=== PATIENT | female | born 1955 | race Caucasian/White ===

== ENCOUNTER → 2017-12-16 08:28 | Outpatient (CLI) | payer OTHER, SELFPAY ==
--- NOTE | 2017-12-16 08:29 | US_ITS ---
STUDY: ABDOMINAL ULTRASOUND - RIGHT UPPER QUADRANT REASON FOR VISIT: Female, 62 years old. Elevated liver enzymes. TECHNIQUE: Ultrasound evaluation of the right upper quadrant was performed with real-time and static miner-scale imaging. TECHNICAL QUALITY: Adequate. COMPARISON: None. FINDINGS: Liver: The liver measures 14.5 cm. There is normal echogenicity of the liver. The bile ducts are within normal limits. There is hepatic color flow. The direction of portal flow is hepatopetal. There is no demonstrated mass lesion. Gallbladder: Normal distended gallbladder. The gallbladder wall is slightly thickened and measures 3.3 mm. There is a negative sonographic Rowland's sign. There is no pericholecystic fluid. There are multiple echogenic structures within the gallbladder, consistent with multiple gallstones. Common Bile Duct (C.B.D.): The common bile duct measures 2.9 mm. Pancreas: Normal size of the head, body of the pancreas. The tail portion is obscured due to overlying bowel gas. There is normal echogenicity of the pancreas. There is no demonstrated pancreatic mass or cyst. Right Kidney: Normal size of the right kidney. The right kidney measures 12.2 cm x 5.0 cm x 4.1 cm. Normal renal cortex. The right cortex measures 1.0 cm. There is no demonstrated renal mass or cyst. There is no right hydronephrosis. US/Liver IMPRESSION: Multiple gallstones. Slightly thickened gallbladder wall. Electronically Signed: Armen Boogie MD at 14:34 EST Tel [phone], Service support ,
== END ==
PROVIDERS: Family Provider Nurse Practitioner; PCP Nurse Practitioner; Visit Provider Nurse Practitioner
DX: K80.80 Other cholelithiasis without obstruction (principal)
CPT/HCPCS: 76705

== ENCOUNTER 2017-12-31 07:00 | Outpatient (RCR) | payer OTHER, SELFPAY ==
--- NOTE | 2017-12-08 15:49 | HP.OTEVAL_ITS ---
Patient's Visit Information GARLAND BURROWS is a 62 year old F, referred to Occupational Therapy by Chayo Ku DO,, with a diagnosis of R MR release. Date of Evaluation: 12/08/17 Occupational Therapist: Marlene Sexton - Subjective Subjective: Pt., boubacar Santoyojoana and noted trigger finger release 2 months. She notes trigger finger has been issue about year and half prior to surgery Hand 1x cortisone injection. She noted she can do things but not as well as she would like. - Pain Right Hand 0 Pain Intensity Range: 0, 3, 4 - Objective Objective/Observation: Scar closed at MF A1 joleen area. Increased scar tissue formation with palpation. She presents with increased edema in R MF compared to L MF. As well as increased stiffness and decreased ROM and strength at this time. - ROM MP: MF R -14-67, L 0-77 PIP: MF R 0-98, L 7-98 DIP: MF 0-68, L 0-61 - Strength Project Manager Process Development: R 39, L 52 Lateral Pinch: R 7, L 11 Tripod Pinch: R 6, L 8 Tip-to-Tip Pinch: R 6, L 4 - Edema Proximal Phalanx: MF R 7.5 cm, L 6.8 cm - Sensation Sensation Comments: WFL; deneis numbness and tingling. - Hand/Wrist Evaluation Total Score of Pain & Functional Sections: 18 - Goals Goal:: Garland to increase R interpreter translator to that of L interpreter translator 2/3 trials 75% if the time to promote increased ability to complete ADL/AIDls and b hand manipulation by d/c. Goal:: Garland to increase R MF MCP ROM to that of equal value of L nonaffected have 2/3 trials 75% of the time by d/c. Goal:: Vatherien to have 0/10 pain consistently in R MF when completing daily fx tasks 4/5 trials 80% of the time by d/c. Goal:: Garland to complete daily scar massage as part of HEP to decrease scar tissue and sensitivity of scar 80% of the time by d/c. Goal:: Garland to return to (I) in all b hand coordiantion and manipulation tasks needed for work and daily activities, including leisure interests i.g. knitting, 4/5 trials 80% of the time by d/c. Goal:: Garland to be (I) to complete HEP 4/5 trials 80% of the time to promote increased strength and tendon glide through A1 joleen to decrease stiffness and promote returning R MF to PLOF by d/c. - Rehabilitation General Assessment: Garland hamlinjoana for evaluation on this date. She has R MF trigger finger release about 2 months ago and has still had some symptoms over the past two months. SHe is unhappy with progress and notes continued edema in R MF as well as locking on occassion. She is to complete OT to promote increasing ROM, strength, and general ability to return to all ADL/IADL sincluding leisure interests at PLOF. Rehabilitation Potential: Good - Anticipated Interventions Anticipated Interventions: A/AAROM/PROM, Strengthening, Edema Control, Scar Care , Massage, Modalities, Joint Protection/Energy Conservation, Dynamic Sitting Balance, Fine Motor Coord/Miguel A, ADL Training, Caregiver Training, Home Program - Visit Plan Frequency: 2x /Week Duration: 4 Weeks General Plan: Pt.Garland, to recieve OT for edema management techniques, decrease scar massage, ROM, strengthening and promoting returnto PLOF. TEXT: Thank you for the opportunity to evaluate your patient. For Medicare and Medicare HMO plans, please review the plan of care and approve it. It will need to be FAXED BACK to us at [phone] for Medicare purposes. Please let me know if there are questions or concerns regarding this plan of care. Physician Signature: Date:
--- NOTE | 2018-03-10 12:10 | HP.OTDCSUM_ITS ---
HP - OT D/C Summary It has been my pleasure to treat GARLAND BURROWS under orders from Chayo Ku DO, for the diagnosis of R MR release for a total of 8 visit(s). She was to follow up at beginning of January and did not return. She will be d/c' d on this date. Please see the following information for a summary of their discharge status. - Objective Objective/Function: Measurements taken uoon last visit: ROM of R MF are as follows: R MCP 0-69, PIP 0-100, DIP 3-67; L MCP 0-67, PIP 0-96, 0-65. ROM similar R vs L. Stiffness present but Pt. is able to straighten actively. 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 She has progressed from time of inital eval with all measurements. 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 Goal:: Garland to increase R MF MCP ROM to that of equal value of L nonaffected have 2/3 trials 75% of the time by d/c. Goal:: Fang to have 0/10 pain consistently in R MF when completing daily fx tasks 4/5 trials 80% of the time by d/c. Goal:: Garland to complete daily scar massage as part of HEP to decrease scar tissue and sensitivity of scar 80% of the time by d/c. Goal:: Garland to return to (I) in all b hand coordiantion and manipulation tasks needed for work and daily activities, including leisure interests i.g. knitting, 4/5 trials 80% of the time by d/c. Goal:: Garland to be (I) to complete HEP 4/5 trials 80% of the time to promote increased strength and tendon glide through A1 joleen to decrease stiffness and promote returning R MF to PLOF by d/c. - Plan Plan: 1x follow up 2x weeks from now. She will be d/c'd if all is well. She is to return to Dr. Ku if stiffness persists. She has progressed nicely but is still worried about stiffness. ROM of R MF vs L MF are similar. 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 SHe is to call with questions/concerns. - D/C Information If there are questions or concerns regarding this patient's occupational therapy , please fell free to call me at [phone]. Thank you for the referral of this patient. Sincerely, Marlene Sexton
== END 2017-12-31 19:00 | disposition home or self-care (01) ==
LOC: OT 07:00
PROVIDERS: Family Provider Nurse Practitioner; PCP Nurse Practitioner; Visit Provider Orthopaedic Surgery
DX: M25.641 Stiffness of right hand, not elsewhere classified (principal)
CPT/HCPCS: 97035; 97110; 97140; 97166; 97530

== ENCOUNTER → 2017-12-31 14:21 | Outpatient (CLI) | payer OTHER, SELFPAY ==
--- NOTE | 2017-12-31 14:23 | HPBI_ITS ---
MAMMOGRAPHY - BILATERAL SCREENING 3-D LUCAS SYNTHESIS REASON FOR EXAM: Female, 62 years old. Bilateral Screening 3-D tomosynthesis PERTINENT HISTORY: Mother with breast cancer.. TECHNIQUE: 2-D mammograms and 3-D Lucas synthesis of the breast (s) were performed. CAD was performed. COMPARISON: 10/29/2016 FINDINGS: The breast composition is heterogeneously dense that can obscure small breast masses. Scattered benign calcifications are seen. No dense spiculated masses or suspicious microcalcifications are identified. No architectural distortion is identified. There is no skin thickening or retraction. There has been no significant change since the prior study. HPBI/SCREENING MAMM (CAD), BILAT IMPRESSION: No mammographic signs of malignancy. Routine yearly mammograms recommended. ASSESSMENT CATEGORY: BIRADS Category 2: Benign. A letter regarding these results will be sent to the patient by the facility within 30 days. FOLLOW UP RECOMMENDATION: Yearly follow up mammogram recommended. (A) Approximately 10% of breast cancers are not detected by mammography. A normal mammogram should not delay biopsy of a clinically suspicious abnormality. Electronically Signed: Teja Aaron MD at 9:34 EDT , Service support ,
== END ==
PROVIDERS: Family Provider Nurse Practitioner; PCP Nurse Practitioner; Visit Provider Nurse Practitioner
DX: Z12.31 Encounter for screening mammogram for malignant neoplasm of breast (principal)
CPT/HCPCS: 77063; 77067

== ENCOUNTER 2018-01-25 10:10 | Day surgery (SDC) | payer OTHER, SELFPAY ==
--- NOTE | 2018-01-20 08:23 | EKG12_ITS ---
Test Reason : PRE OP Blood Pressure : / mmHG Vent. Rate : 064 BPM Atrial Rate : 064 BPM P-R Int : 130 ms QRS Dur : 092 ms QT Int : 396 ms P-R-T Axes : 013 028 024 degrees QTc Int : 408 ms Normal sinus rhythm Normal ECG Confirmed by ASHLEY PARDO, JOSE ([id number]), food editor CAITLIN NIELSON ([id number]) on 01/21/2018 11:35:11 AM Referred By: Chidi Mo Confirmed By:JOSE RAMIREZ MD
[2018-01-20 08:49] LABS: Hematocrit 36.3 % (37-47); Hemoglobin 12.6 g/dl (12.0-15.0); Mean Corp Hgb Conc 34.7 g/gl (32-36); Mean Corpuscular Hgb 30.7 pg (27.0-32.0); Mean Corpuscular Volume 88.3 fL (81-99); Mean Platelet Vol. 11.2 fl (6.2-12.0); Platelet Count 167 K/mm3 (150-450); RBC Distribution Width CV 12.2 % (11.6-14.6); RBC Distribution Width SD 38.1 fl (35.1-43.9); Red Blood Count 4.11 M/mm3 (4.2-5.4); White Blood Count 3.3 K/mm3 (4.4-11.0)
[2018-01-20 08:50] LABS: Scan Indicated on CBC? Y/N NO
[2018-01-25] VITALS (8 sets, daily range): BP systolic 130–191; BP diastolic 7–89; PULSE 57–76; RESP 16–18; TEMP 36.1–36.6; O2SAT 92–100; BMI 29.4
--- NOTE | 2018-01-25 | GALL_PTH ---
PATIENT: GRALAND BUR[place]OWS [place] [facility] [id number] AGE/SX: 62/F ROOM: RE01/25/[address]: Dr. Chidi Mo MD : [id number] BED: DIS: 01/25/2018 SPEC #: [id number] RECD: 01/25/18 15:16 STATUS: ZUNILDA ANGELITO #: [id number] FABRIZIO: 01/25/18 00:[address]: Chidi Mo DEPT: SURGICAL PATHOLOGY RECD BY: James Pozo ENTERED: 01/25/18 15:17 SP TYPE: RENEE GARCIA DR: Mylene Craig, SYSTEMS MECHANIC-C Tissues: Gallbladder, NOS Procedures: Surgery Specimen Level III HEADER OPERATION: Laparoscopic cholecystectomy PRE-OP DIAGNOSIS: Calculus of gallbladder with chronic cholecystitis without obstruction TISSUE SUBMITTED: Gallbladder MICROSCOPIC DIAGNOSIS Gallbladder: Chronic cholecystitis and cholelithiasis. SJ:trevor 4/18/18 MICROSCOPIC DESCRIPTION Slides are reviewed. GROSS DESCRIPTION Received is one container labeled with the patient's name and designated gallbladder. The specimen consists of a gallbladder measuring 9.5 cm in length and up to 4 cm in diameter. The external surface is pink-watson, smooth and glistening for the most part. Focally it is granular, hemorrhagic and contains cautery artifact. The gallbladder contains four variable size greenish-brown stones and stone fragments measuring in aggregate 2.5 x 2.5 x 1.5 cm and 0.5 to 1.5 cm in greatest dimension. The mucosa is bile-stained and without any mass lesions. The gallbladder wall measures up to 0.2 cm in thickness. Pony Roll Finisher sections from the gallbladder and the cystic duct are submitted in one cassette. / SJ:trevor 01/25/18 TC:3 [facility]: [id number]
[2018-01-25] MEDS: Cefazolin 2 GM in 0.9% Normal Saline 100 ML IV (11:25)
--- NOTE | 2018-01-25 11:33 | DCINST_ITS ---
Discharge Diet: Light diet - advance as tolerated Discharge Activity: May Not Drive - for 2-3 days or while taking narcotic pain medications., - - Do not drive, work heavy equipment or sign legal documents for 24 hours. May shower in (days): 1 - with the bandage in place. Additional Activity Instructions:: Pain medication may cause nausea. You should typically eat light foods as you take your pain medications. Pain medication may also cause constipation. If this is a problem for you, please discuss with your doctor. Call your doctor if your incision/area has: Continuous Slow Oozing, Sudden Increased Bleeding, Increased Pain/ Swelling, Increased Redness, Foul Smelling Discharge Call your doctor if you observe: Fever of 101 or Higher Suture Line Care: Avoid Pulling/Pushing, Avoid Pinching/Bending Additional Dressing/Incision Instructions:: Leave operative bandaids on for 2 days. When you remove dressing, leave Steri-Strips on until your follow-up appointment, or until the Steri-Strips fall off on their own. Allergies/Adverse Reactions: Allergies lidocaine Adverse Reaction (Verified 01/19/18 11:28) Itching Medications to take at Discharge coenzyme Q10 200 mg capsule 200 mg PO DAILY 10/15/17 atorvastatin 20 mg tablet 10 mg PO QDAY tab 12/30/17 cholecalciferol (vitamin D3) 10,000 unit capsule 10,000 unit PO QDAY 12/30/17 Calcium Carbonate [Calcium] 600 mg PO BID 01/19/18 Oxycodone HCl/Acetaminophen [Percocet 5/325] 1 - 2 tab PO Q4H PRN PRN 4 Days # 30 tab 01/25/18 The following prescriptions were given: Oxycodone HCl/Acetaminophen [Percocet 5/325] 1 - 2 tab PO Q4H PRN PRN 4 Days # 30 tab PRN Reason: Pain Primary Care Physician: Mylene Craig [Primary Care Provider] - Please Follow Up With: Chidi Mo MD - Please call [phone] to schedule an appointment. When: 7 days after your surgery.
--- NOTE | 2018-01-25 11:35 | OP.PCM_ITS ---
Problem List (1) Calculus of gallbladder with chronic cholecystitis without obstruction Status: Acute Report of Operation Date of Procedure: 01/25/18 Pre-Operative Diagnosis: k 80.10 calculus of the gallbladder with chronic cholecystitis without obstruction Post-Operative Diagnosis: Same Surgery/Procedure Performed:: [id number] laparoscopic cholecystectomy Type of Anesthesia:: General Anesthesiologist: David Berry Description of Procedure: Patient was brought into the operating room and placed in the supine position. Under excellent general anesthetic the abdomen was sterilely prepped and draped in the usual fashion. Local was injected infraumbilically and dissection was carried down to the fascia the fascia was grasped with a Zander varies needle was placed inside the abdomen the abdomen was insufflated to 15 torr a 10/12 trocar was placed without difficulty. Patient was placed in the head up and rotated to the left position. A subxiphoid #5 trocar was placed, inferior to this another #5 trocar was placed, and laterally a #5 trocar was placed. All these under direct visualization without injury to underlying structures. Patient was placed in the head up and rotated to the left position. Fundus of the gallbladder was grasped retracted in cephalad direction. I dissected out the cystic duct. Base hemoclips proximally and distally and ligated the duct. Identified the cystic artery I pulled the close node down and place hemoclips proximally and distally on the artery and ligated the artery. I deliver the gallbladder from the gallbladder bed with use of electrocautery I had no spillage of bile or stones. I placed a specimen and specimen bag delivered through the umbilical port. I irrigated the right upper quadrant good hemostasis was noted. I remove the trochars under direct visualization good hemostasis was noted. I closed the fascia the umbilical port with a figure-of- eight stitch of 0 Vicryl. Skin incisions were closed with subcuticular stitches of 4-0 Monocryl. Steri-Strips are applied sterile dressings were applied the patient tolerated the procedure well. - Admit VTE Documentation VTE Present on Admission: No VTE Mechan Device Prophylaxis: SCD's VTE Pharm Prophylaxis ordered?: No Reason prophylaxis not ordered:: Treatment Not Indicated
[2018-01-25] MEDS: Bupivacaine Mpf 0.5% 30 ML VIAL (12:10)
== END 2018-01-25 14:53 | disposition home or self-care (01) ==
LOC: SDC 10:10 → AC 10:11
PROVIDERS: Family Provider Nurse Practitioner; PCP Nurse Practitioner; Visit Provider Surgery
PROC: (CPT 47610; principal; 2018-01-25 11:10)
DX: K80.10 Calculus of gallbladder with chronic cholecystitis without obstruction (principal); E78.00 Pure hypercholesterolemia, unspecified; Z87.19 Personal history of other diseases of the digestive system; G47.30 Sleep apnea, unspecified; Z87.440 Personal history of urinary (tract) infections; Z87.442 Personal history of urinary calculi; Z86.2 Personal history of diseases of the blood and blood-forming organs and certain disorders involving the immune mechanism; Z78.0 Asymptomatic menopausal state; Z79.899 Other long term (current) drug therapy
CPT/HCPCS: 00790; 47562; 36415; 85027; 88304; 93005; J7120; J2405

== ENCOUNTER → 2018-08-04 12:38 | Outpatient (CLI) | payer OTHER, SELFPAY ==
--- NOTE | 2018-08-04 12:41 | RAD_ITS ---
STUDY: X-RAY CHEST REASON FOR EXAM: Female, 63 years old. CHEST PRESSURE WHEN TAKING IN A BREATH X 1 WEEK TECHNIQUE: Frontal and lateral view of the chest. COMPARISON: None. FINDINGS: The lungs are clear and expanded. There is no demonstrated pleural abnormality. Normal size heart. Normal mediastinum and johnson. Normal visualized pulmonary arteries. Normal visualized aortic arch and descending thoracic aorta. There are diffuse degenerative changes of the visualized thoracic spine. Normal visualized ribs, clavicles, and shoulders. There is no demonstrated abnormality of the visualized soft tissue structures of the upper abdomen. RAD/Chest PA and Lateral IMPRESSION: There are no acute findings in the chest. Electronically Signed: Maico Lehman MD at 20:27 EDT , Service support ,
[2018-08-04 13:14] LABS: D-Dimer Quantitative (DVT/PE) 0.27 FEU/ug/m (0.27-0.49)
== END ==
PROVIDERS: Family Provider Nurse Practitioner; PCP Nurse Practitioner; Referring Provider Nurse Practitioner Gerontology; Visit Provider Nurse Practitioner Gerontology
DX: R07.1 Chest pain on breathing (principal)
CPT/HCPCS: 71046; 85379

== ENCOUNTER 2018-08-06 16:45 | Observation (INO) | payer OTHER, SELFPAY ==
[2018-08-06] VITALS (7 sets, daily range): BP systolic 124–162; BP diastolic 66–90; PULSE 66–78; RESP 16–18; TEMP 36.8–37.1; O2SAT 96–99; BMI 30.1; BMI 29.6
--- NOTE | 2018-08-06 17:04 | EKG12_ITS ---
Test Reason : CP Blood Pressure : / mmHG Vent. Rate : 078 BPM Atrial Rate : 078 BPM P-R Int : 146 ms QRS Dur : 092 ms QT Int : 378 ms P-R-T Axes : 058 044 047 degrees QTc Int : 430 ms Normal sinus rhythm Normal ECG Confirmed by GILA PARDO, LINDSAY ([id number]), society editor CAITLIN NIELSON ([id number]) on 08/09/2018 10:09:18 AM Referred By: Pamela Grimes Confirmed By:LINDSAY URIOSTEGUI MD
--- NOTE | 2018-08-06 17:05 | RAD_ITS ---
STUDY: X-RAY CHEST REASON FOR EXAM: Female, 63 years old. Chest pain hypertension TECHNIQUE: Single AP portable view of the chest. COMPARISON: Study done 2 days ago. FINDINGS: Scoliosis of the thoracic spine. The lungs are clear and expanded. There is no demonstrated pleural abnormality. Normal size heart. Normal mediastinum and johnson. Normal visualized pulmonary arteries. Normal visualized aortic arch and descending thoracic aorta. Normal visualized thoracic spine. Normal visualized ribs, clavicles, and shoulders. There is no demonstrated abnormality of the visualized soft tissue structures of the upper abdomen. RAD/Chest 1 View (Portable) IMPRESSION: Normal x-ray examination of the chest. Electronically Signed: Maico Lehman MD at 17:44 EDT , Service support ,
--- NOTE | 2018-08-06 17:09 | ED.DCSUM_ITS ---
- ER Visit Summary Date of Service: 08/06/18 Chief Complaint: Chest pain History of Present Illness: The patient is a 63 F with a 2-week history of waxing and waning chest pain. It seems to come on with exertion and better with rest. She has had some intermittent shortness of breath as well. She was seen by her PCP this week and had a normal d-dimer. She is scheduled for a CT scan of her chest in the upcoming weeks. Patient does have family history of coronary disease. She did take 1 tab of extra strength Excedrin earlier today which contains 250 mg of aspirin. Physical Examination: Blood pressure is 162/84, other vitals normal. Patient sitting upright in bed no acute distress. Head neck examination is unremarkable. Heart is regular rate and rhythm. Lung sounds clear. Chest wall is nontender. Abdomen is soft nontender. Lower extremity examination reveals no significant calf tenderness or edema. Test Results: EKG is sinus at 78 with no sign of acute ischemia. Portable chest x-ray unremarkable. CBC and chemistry studies are significant for potassium 3.2. Troponin is negative. Emergency Department Course and Treatment: Patient did take aspirin earlier today. Test results were discussed with patient as well as at bedside. She did have a d-dimer earlier this week that was negative. I did express concern that the patient's symptoms certainly do sound cardiac and she has a strong family history of cardiac disease. Symptoms have seemed to progress and worsen over the past 2 weeks. I recommended hospitalization for cycling of enzymes and stress test, which she understands cannot be performed until Wednesday morning. Treatment Plan: [] Disposition: Admit Impression: 1. Chest pain 2. Hypokalemia This note was generated with [employer] dictation software. It may contain incorrect words, spelling, and punctuation that were not noted in review of the chart prior to signing ED Disposition - Plan for ED Patient: Chief Complaint: Chest Pain Referrals: Mylene Criag, GUNNER-C [Primary Care Provider] -
[2018-08-06] MEDS: 0.9% Normal Saline 1,000 ML 150 ML IV (17:17)
[2018-08-06 17:28] LABS: Absolute Lymphocyte Count 1.37 X10^3/ul (0.83-4.51); Absolute Neutrophil Count 5.2 X10^3/uL (2.0-7.7); Basophil# 0.02 X10^3/uL; Basophil% 0.3 % (0-1); Eosinophils% 1.4 % (0-5); Hemoglobin 12.3 g/dl (12.0-15.0); Lymphocyte # 1.37 X10^3/ul (4.0); Lymphocyte % 18.6 % (19-41); Mean Corp Hgb Conc 33.2 g/gl (32-36); Mean Corpuscular Hgb 29.6 pg (27.0-32.0); Mean Corpuscular Volume 88.9 fL (81-99); Mean Platelet Vol. 10.5 fl (6.2-12.0); Monocyte% 9.5 % (0-10); Neutrophil # 5.15 X10^3/uL (2.7-7.7); Neutrophil % 70.1 % (47-70); Platelet Count 192 K/mm3 (150-450); RBC Distribution Width SD 38.4 fl (35.1-43.9); Red Blood Count 4.16 M/mm3 (4.2-5.4); White Blood Count 7.4 K/mm3 (4.4-11.0)
[2018-08-06 17:36] LABS: POSITIVE COUNT NO; POSITIVE DIFFERENTIAL NO; POSITIVE MORPHOLOGY NO
[2018-08-06 17:51] LABS: Anion Gap 5 (5-15); BUN 16 mg/dL (7-18); BUN/Creat Ratio 20.4 RATIO (10-20); Calcium,Total 8.8 mg/dL (8.5-10.1); Chloride 107 mmol/L (98-107); Creatinine, Serum 0.78 mg/dL (0.55-1.02); EST Glomerular Filtration Rate 79 mL/min (>60); Est Glom Filt Rate - Afr Amer 95 mL/min (>60); Estimated Creatinine Clearance 62.92 ml/min; Glucose 101 mg/dL (74-106); Potassium 3.2 mmol/L (3.5-5.1); Sodium Level 143 mmol/L (136-145)
--- NOTE | 2018-08-06 18:19 | PCM.HP.STD ---
Problem List (1) Chest pain Status: Acute History of Present Illness Date of Admission: 08/06/18 Chief Complaint: chest pain The patient is a 63 year old F with a history of hypertension and hyperlipidemia. She was admitted with a complaint of chest pain which has been going on for about 2 weeks. Was retrosternal, pressure-like, radiating to her back and aggravated by exertion. She denied any history of shortness of breath or lightheadedness or dizziness. Chest pain was resolving so she decided to come in. She was recently started on amlodipine by her PCP on account of elevated blood pressure. She has a strong family history of CAD as her brother and father both had CABG and mother and aunt are diabetic and the rest of her family are hypertensive. In the ED, EKG was normal sinus rhythm with no acute ST changes initial troponin was negative. She is being admitted to be managed for chest pain to rule out ACS. [] Past Medical History Past Medical History (Chronic Problems): Chronic Problems (Last Reviewed 02/01/18 @ 08:53 by Venita Cuello) Esophageal reflux (Chronic) Medical History: Medical History (Last Reviewed 02/01/18 @ 08:53 by Venita Cuello) Esophageal reflux (Chronic) K21.9 History of hysterectomy Z90.710 Hyperlipidemia E78.5 History of hysterectomy Z98.890, Z90.710 2004 Allergies lidocaine Adverse Reaction (Verified 08/06/18 16:47) Itching Home Medications: Ambulatory Orders Medication Instructions Recorded coenzyme Q10 200 mg capsule 200 mg PO DAILY 10/15/17 atorvastatin 20 mg tablet 10 mg PO QDAY tab 12/30/17 cholecalciferol (vitamin D3) 10,000 unit PO QDAY 12/30/17 10,000 unit capsule Calcium Carbonate [Calcium] 600 mg PO BID 01/19/18 Alendronate Sodium [Fosamax] 70 mg PO QWEEK 08/06/18 Amlodipine [Norvasc] 2.5 mg PO DAILY 08/06/18 Magnesium 500 mg PO DAILY 08/06/18 Surgical History: Surgical History (Last Reviewed 02/01/18 @ 08:53 by Venita Cuello) History of appendectomy Z90.49 History of tonsillectomy Z90.89 S/P laparoscopic cholecystectomy Z90.49 01/26 Trigger finger, right middle finger M65.331 History of tonsillectomy Z98.890, Z90.89 1960 S/P appendectomy Z90.49 1977 Trigger finger M65.30 right thumb Surgical 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 Lives: Spouse/ Significant Other Smoking Status: Never smoker Alcohol: Occasional Drugs: None - *Family History Paternal Family History: Family History (Last Reviewed 02/01/18 @ 08:53 by Venita Cuello) Father CVA (cerebral vascular accident) Hypertension Heart disease Mother Hypertension Breast cancer High cholesterol Brother Heart disease Sister Diabetes Aunt Diabetes History Items: Heart Disease - brother and father both had CABG, Hypertension Maternal Family History: Family History (Last Reviewed 02/01/18 @ 08:53 by Venita Cuello) Father CVA (cerebral vascular accident) Hypertension Heart disease Mother Hypertension Breast cancer High cholesterol Brother Heart disease Sister Diabetes Aunt Diabetes History Items: Diabetes, Hypertension Review of Systems Constitutional: Denies: Chills, Fever, Weight Change Eyes: Denies: Blurred vision HEENT: Denies: Head Aches, Sinus Congestion, Sinus Drainage Cardiovascular: Reports: Chest Pain, Chest Pressure. Denies: Chest Tightness, Edema, Orthopnea, Palpitations, Paroxysmal Noc. Dyspnea, Syncope Respiratory: Denies: Cough, Shortness of breath at rest, Sputum production Gastrointestinal: Denies: Abdominal Pain, Nausea, Vomiting Genitourinary: Denies: Dysuria Musculoskeletal: Denies: Joint Pain, Joint Tenderness Skin: Denies: Rash, Wounds Neurological: Denies: Numbness, Tingling, Focal weakness Psychiatric: Denies: Anxiety, Depression, Homicidal Ideations, Suicidal Ideations Hematologic/ Lymphatic: Denies: Easy Bruising, Easy Bleeding VTE Information - Inpt Only VTE Present on Admission: No VTE Pharm Prophylaxis ordered?: Yes Patient Problems: Active and Suspected Problems (Last Reviewed 02/01/18 @ 08:53 by Venita Cuello) Chest pain (Acute) - Physical Exam General: Alert, Oriented x3, Cooperative, No apparent distress HEENT: Atraumatic, PERRLA, EOMI, Normocephalic Neck: Supple, No JVD, Negative Carotid Bruits Lungs: Clear to auscultation, Normal air movement, No rhonchi, No wheeze, No rales Cardiovascular: Regular rate, Regular Rhythm, Normal S1, Normal S2, No murmurs Abdomen: Bowel Sounds Present, Soft, Non Tender, Non-Distended, No Hepato-splenomegaly Extremities: No clubbing, No cyanosis, No edema, Capillary Refill Less than 3 Seconds Skin: No rashes, No breakdown Musculoskeletal: No Tenderness to Palpation of Joints or Extremities Lymphatic: No Cervical, Supraclavicular, or Inguinal Adenopathy Neurological: Cranial nerves II-XII grossly intact Psych/Mental Status: Normal Affect, Appropriate, Alert and oriented to time, place, person, mood and affect Vital Signs Temp Pulse Resp BP Pulse Ox 98.3 F 71 18 155/90 H 99 08/06/18 16:45 08/06/18 18:14 08/06/18 18:14 08/06/18 18:14 08/06/18 18:14 Oxygen Flow Rate (L/min) 2 Oxygen Delivery Method Nasal Cannula Weight: 175 lb 11.335 oz Body Mass Index (BMI) 30.1 Laboratory Tests Past 24 Hrs 08/06/18 08/06/18 17:15 17:15 WBC 7.4 RBC 4.16 L Hgb 12.3 Hct 37.0 MCV 88.9 MCH 29.6 MCHC 33.2 RDW 12.0 RDW Differential 38.4 Plt Count 192 MPV 10.5 Immature Gran % (Auto) 0.100 Neut % (Auto) 70.1 H Lymph % (Auto) 18.6 L [place] % (Auto) 9.5 Eos % (Auto) 1.4 Baso % (Auto) 0.3 Absolute Neuts (auto) 5.2 Absolute Lymphs (auto) 1.37 Total Counted Not Reportable Sodium 143 Potassium 3.2 L Chloride 107 Carbon Dioxide 31.0 Anion Gap 5 BUN 16 Creatinine 0.78 Estim Creat Clear Calc 62.92 Est GFR (MDRD) Af Amer 95 Est GFR (MDRD) Non-Af 79 BUN/Creatinine Ratio 20.4 H Glucose 101 Calcium 8.8 Troponin I < 0.015 Diagnostic Data Chest X-Ray 08/06/18 17:05 IMPRESSION: Normal x-ray examination of the chest. Electronically Signed: Maico Lehman MD at 17:44 EDT , Service support , Assessment/Plan All Active Problems (Last Reviewed 02/01/18 @ 08:53 by Venita Cuello) Chest pain (Acute) Calculus of gallbladder with chronic cholecystitis without obstruction (Acute) 63 y/o female presenting with a complaint of chest pain for 2 weeks 1. Exertional chest pain to rule out ACS chest pain retrosternal, worsened by exertion. no history of [place] or CAD admit to PCU with telemetry initial troponin negative; cycle troponins lipid panel; check A1C aspirin 81mg daily, SL nitroglycerin prn stress test on Wednesday 2. Hypertension: on amlodipine. will continue 3. Hyperlipidemia: on statin DVT prophylaxis: heparin Code status: full code. Patient counseled extensively about different types of CODE STATUS including full code, DNR CCA and DNR CCA. Patient elects to be full code. Total [id number] time 16 minutes. Code Visit OBSV E&M: 72063 Initial observation care L2 Procedures: 45778 Advncd Care Plan 30 Min
--- NOTE | 2018-08-06 18:24 | HP.PCM_ITS ---
Problem List (1) Chest pain Status: Acute History of Present Illness Date of Admission: 08/06/18 Chief Complaint: chest pain The patient is a 63 year old F with a history of hypertension and hyperlipidemia. She was admitted with a complaint of chest pain which has been going on for about 2 weeks. Was retrosternal, pressure-like, radiating to her back and aggravated by exertion. She denied any history of shortness of breath or lightheadedness or dizziness. Chest pain was resolving so she decided to come in. She was recently started on amlodipine by her PCP on account of elevated blood pressure. She has a strong family history of CAD as her brother and father both had CABG and mother and aunt are diabetic and the rest of her family are hypertensive. In the ED, EKG was normal sinus rhythm with no acute ST changes initial troponin was negative. She is being admitted to be managed for chest pain to rule out ACS. [] Past Medical History Past Medical History (Chronic Problems): Chronic Problems (Last Reviewed 02/01/18 @ 08:53 by Venita Cuello) Esophageal reflux (Chronic) Medical History: Medical History (Last Reviewed 02/01/18 @ 08:53 by Venita Cuello) Esophageal reflux (Chronic) K21.9 History of hysterectomy Z90.710 Hyperlipidemia E78.5 History of hysterectomy Z98.890, Z90.710 2004 Allergies lidocaine Adverse Reaction (Verified 08/06/18 16:47) Itching Home Medications: Ambulatory Orders Medication Instructions Recorded coenzyme Q10 200 mg capsule 200 mg PO DAILY 10/15/17 atorvastatin 20 mg tablet 10 mg PO QDAY tab 12/30/17 cholecalciferol (vitamin D3) 10,000 unit PO QDAY 12/30/17 10,000 unit capsule Calcium Carbonate [Calcium] 600 mg PO BID 01/19/18 Alendronate Sodium [Fosamax] 70 mg PO QWEEK 08/06/18 Amlodipine [Norvasc] 2.5 mg PO DAILY 08/06/18 Magnesium 500 mg PO DAILY 08/06/18 Surgical History: Surgical History (Last Reviewed 02/01/18 @ 08:53 by Venita Cuello) History of appendectomy Z90.49 History of tonsillectomy Z90.89 S/P laparoscopic cholecystectomy Z90.49 01/26 Trigger finger, right middle finger M65.331 History of tonsillectomy Z98.890, Z90.89 1960 S/P appendectomy Z90.49 1977 Trigger finger M65.30 right thumb Surgical History: appendectomy 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 Lives: Spouse/ Significant Other Smoking Status: Never smoker Alcohol: Occasional Drugs: None - *Family History Paternal Family History: Family History (Last Reviewed 02/01/18 @ 08:53 by Venita Cuello) Father CVA (cerebral vascular accident) Hypertension Heart disease Mother Hypertension Breast cancer High cholesterol Brother Heart disease Sister Diabetes Aunt Diabetes History Items: Heart Disease - brother and father both had CABG, Hypertension Maternal Family History: Family History (Last Reviewed 02/01/18 @ 08:53 by Venita Cuello) Father CVA (cerebral vascular accident) Hypertension Heart disease Mother Hypertension Breast cancer High cholesterol Brother Heart disease Sister Diabetes Aunt Diabetes History Items: Diabetes, Hypertension Review of Systems Constitutional: Denies: Chills, Fever, Weight Change Eyes: Denies: Blurred vision HEENT: Denies: Head Aches, Sinus Congestion, Sinus Drainage Cardiovascular: Reports: Chest Pain, Chest Pressure. Denies: Chest Tightness, Edema, Orthopnea, Palpitations, Paroxysmal Noc. Dyspnea, Syncope Respiratory: Denies: Cough, Shortness of breath at rest, Sputum production Gastrointestinal: Denies: Abdominal Pain, Nausea, Vomiting Genitourinary: Denies: Dysuria Musculoskeletal: Denies: Joint Pain, Joint Tenderness Skin: Denies: Rash, Wounds Neurological: Denies: Numbness, Tingling, Focal weakness Psychiatric: Denies: Anxiety, Depression, Homicidal Ideations, Suicidal Ideations Hematologic/ Lymphatic: Denies: Easy Bruising, Easy Bleeding VTE Information - Inpt Only VTE Present on Admission: No VTE Pharm Prophylaxis ordered?: Yes Patient Problems: Active and Suspected Problems (Last Reviewed 02/01/18 @ 08:53 by Venita Cuello) Chest pain (Acute) - Physical Exam General: Alert, Oriented x3, Cooperative, No apparent distress HEENT: Atraumatic, PERRLA, EOMI, Normocephalic Neck: Supple, No JVD, Negative Carotid Bruits Lungs: Clear to auscultation, Normal air movement, No rhonchi, No wheeze, No rales Cardiovascular: Regular rate, Regular Rhythm, Normal S1, Normal S2, No murmurs Abdomen: Bowel Sounds Present, Soft, Non Tender, Non-Distended, No Hepato- splenomegaly Extremities: No clubbing, No cyanosis, No edema, Capillary Refill Less than 3 Seconds Skin: No rashes, No breakdown Musculoskeletal: No Tenderness to Palpation of Joints or Extremities Lymphatic: No Cervical, Supraclavicular, or Inguinal Adenopathy Neurological: Cranial nerves II-XII grossly intact Psych/Mental Status: Normal Affect, Appropriate, Alert and oriented to time, place, person, mood and affect Vital Signs Temp Pulse Resp BP Pulse Ox 98.3 F 71 18 155/90 H 99 08/06/18 16:45 08/06/18 18:14 08/06/18 18:14 08/06/18 18:14 08/06/18 18:14 Oxygen Flow Rate (L/min) 2 Oxygen Delivery Method Nasal Cannula Weight: 175 lb 11.335 oz Body Mass Index (BMI) 30.1 Laboratory Tests Past 24 Hrs 08/06/18 08/06/18 17:15 17:15 WBC 7.4 RBC 4.16 L Hgb 12.3 Hct 37.0 MCV 88.9 MCH 29.6 MCHC 33.2 RDW 12.0 RDW Differential 38.4 Plt Count 192 MPV 10.5 Immature Gran % (Auto) 0.100 Neut % (Auto) 70.1 H Lymph % (Auto) 18.6 L [place] % (Auto) 9.5 Eos % (Auto) 1.4 Baso % (Auto) 0.3 Absolute Neuts (auto) 5.2 Absolute Lymphs (auto) 1.37 Total Counted Not Reportable Sodium 143 Potassium 3.2 L Chloride 107 Carbon Dioxide 31.0 Anion Gap 5 BUN 16 Creatinine 0.78 Estim Creat Clear Calc 62.92 Est GFR (MDRD) Af Amer 95 Est GFR (MDRD) Non-Af 79 BUN/Creatinine Ratio 20.4 H Glucose 101 Calcium 8.8 Troponin I < 0.015 Diagnostic Data Chest X-Ray 08/06/18 17:05 IMPRESSION: Normal x-ray examination of the chest. Electronically Signed: Maico Lehman MD at 17:44 EDT , Service support , Assessment/Plan All Active Problems (Last Reviewed 02/01/18 @ 08:53 by Venita Cuello) Chest pain (Acute) Calculus of gallbladder with chronic cholecystitis without obstruction (Acute) 63 y/o female presenting with a complaint of chest pain for 2 weeks 1. Exertional chest pain to rule out ACS * chest pain retrosternal, worsened by exertion. * no history of [place] or CAD * admit to PCU with telemetry * initial troponin negative; cycle troponins * lipid panel; check A1C * aspirin 81mg daily, SL nitroglycerin prn * stress test on Wednesday * 2. Hypertension: on amlodipine. will continue 3. Hyperlipidemia: on statin DVT prophylaxis: heparin Code status: * full code. * Patient counseled extensively about different types of CODE STATUS including full code, DNR CCA and DNR CCA. Patient elects to be full code. Total [id number]-rpho time 16 minutes. Code Visit OBSV E&M: 07852 Initial observation care L2 Procedures: 58665 Advncd Care Plan 30 Min
--- NOTE | 2018-08-06 19:30 | EKG12_ITS ---
Test Reason : CP ADMISSION Blood Pressure : / mmHG Vent. Rate : 069 BPM Atrial Rate : 069 BPM P-R Int : 138 ms QRS Dur : 090 ms QT Int : 388 ms P-R-T Axes : 050 035 033 degrees QTc Int : 415 ms Normal sinus rhythm Normal ECG Confirmed by GILA PARDO, LINDSAY ([id number]), associate entertainment editor CAITLIN NIELSON ([id number] on 08/11/2018 4:08:02 PM Referred By: Pamela Grimes Confirmed By:LINDSAY URIOSTEGUI MD
[2018-08-06 20:26] LABS: Hemoglobin A1c 5.6 % (4.2-6.3)
[2018-08-06] MEDS: Atorvastatin Calcium 10 MG Tablet PO (21:33)
[2018-08-06] MEDS: amLODIPine 2.5 MG Tablet PO (21:33)
[2018-08-06] MEDS: Heparin Injection (Vial) 5,000 UNIT/ML VIAL 5000 UNIT SC (21:33)
[2018-08-07] VITALS (13 sets, daily range): BP systolic 119–135; BP diastolic 73–76; PULSE 60–91; RESP 16–18; TEMP 36.4–37.1; O2SAT 95–98
[2018-08-07 06:02] LABS: Absolute Lymphocyte Count 1.46 X10^3/ul (0.83-4.51); Absolute Neutrophil Count 2.9 X10^3/uL (2.0-7.7); Basophil# 0.05 X10^3/uL; Eosinophil# 0.14 X10^3/uL; Eosinophils% 2.8 % (0-5); Hematocrit 36.7 % (37-47); Hemoglobin 12.3 g/dl (12.0-15.0); Lymphocyte # 1.46 X10^3/ul (4.0); Lymphocyte % 29.1 % (19-41); Mean Corp Hgb Conc 33.5 g/gl (32-36); Mean Corpuscular Hgb 30.1 pg (27.0-32.0); Mean Corpuscular Volume 89.7 fL (81-99); Mean Platelet Vol. 10.7 fl (6.2-12.0); Monocyte# 0.46 X10^3/uL; Monocyte% 9.2 % (0-10); Neutrophil % 57.7 % (47-70); Platelet Count 191 K/mm3 (150-450); RBC Distribution Width CV 11.8 % (11.6-14.6); RBC Distribution Width SD 37.9 fl (35.1-43.9); Red Blood Count 4.09 M/mm3 (4.2-5.4)
[2018-08-07 06:11] LABS: POSITIVE COUNT NO; POSITIVE DIFFERENTIAL NO; POSITIVE MORPHOLOGY NO
[2018-08-07 06:23] LABS: Anion Gap 8 (5-15); BUN 18 mg/dL (7-18); BUN/Creat Ratio 23.5 RATIO (10-20); Calcium,Total 8.5 mg/dL (8.5-10.1); Chloride 108 mmol/L (98-107); Creatinine, Serum 0.76 mg/dL (0.55-1.02); EST Glomerular Filtration Rate 81 mL/min (>60); Est Glom Filt Rate - Afr Amer 98 mL/min (>60); Estimated Creatinine Clearance 64.58 ml/min; Glucose 92 mg/dL (74-106); Potassium 3.8 mmol/L (3.5-5.1); Sodium Level 144 mmol/L (136-145)
[2018-08-07] MEDS: Heparin Injection (Vial) 5,000 UNIT/ML VIAL 5000 UNIT SC ×3 (06:24→21:56)
[2018-08-07 06:31] LABS: Cholesterol 154 mg/dL (200); High Density Lipoprotein 49 mg/dL; Triglycerides 115 mg/dL; Very Low Density Lipoprotein 23 mg/dL (5-40)
[2018-08-07] MEDS: amLODIPine 2.5 MG Tablet PO (08:59)
[2018-08-07] MEDS: Calcium (Elemental) 500 MG Tablet PO ×2 (08:59→17:06)
[2018-08-07] MEDS: Aspirin 81 MG TAB.CHEW PO (08:59)
[2018-08-07] MEDS: Magnesium Oxide 400 MG Tablet PO (08:59)
--- NOTE | 2018-08-07 11:40 | PN_ITS ---
<Jacqui Byrne - Last Filed: 08/07/18 11:41> Patient Problems: Active and Suspected Problems (Last Reviewed 02/01/18 @ 08:53 by Venita Cuello) Chest pain (Acute) Subjective: Patient seen and examined. Denies further chest pain overnight. Patient reports a significant family history of heart disease including sibling with history of bypass and also heart disease involving her father. Notes she has been having chest pain with exertion over the past 2 weeks. Aware of plan for stress test in a.m. - Physical Exam General: Alert, Oriented x3, Cooperative, No apparent distress HEENT: Atraumatic, PERRLA, EOMI, Normocephalic Neck: Supple, No JVD, Negative Carotid Bruits Lungs: Clear to auscultation, Normal air movement Cardiovascular: Regular rate, Regular Rhythm, Normal S1, Normal S2, No murmurs Abdomen: Bowel Sounds Present, Soft, Non Tender, Non-Distended Extremities: No clubbing, No cyanosis, No edema, Capillary Refill Less than 3 Seconds Skin: No rashes, No breakdown Musculoskeletal: No Tenderness to Palpation of Joints or Extremities Neurological: Cranial nerves II-XII grossly intact, Neuro grossly intact Psych/Mental Status: Normal Affect, Appropriate Vital Signs Temp Pulse Resp BP Pulse Ox 98.1 F 91 17 126/76 H 98 08/07/18 08:48 08/07/18 08:48 08/07/18 08:48 08/07/18 08:48 08/07/18 08:48 Oxygen Flow Rate (L/min) 2 Oxygen Delivery Method Room Air Weight: 172 lb 9.951 oz Body Mass Index (BMI) 29.6 Intake and Output for Last 24 Hours 08/05/18 08/06/18 08/07/18 23:59 23:59 23:59 Intake Total 480 / 480 360 / 360 Balance 480 / 480 360 / 360 Laboratory Tests Past 24 Hrs 08/06/18 08/06/18 08/06/18 17:15 17:15 17:15 WBC 7.4 RBC 4.16 L Hgb 12.3 Hct 37.0 MCV 88.9 MCH 29.6 MCHC 33.2 RDW 12.0 RDW Differential 38.4 Plt Count 192 MPV 10.5 Immature Gran % (Auto) 0.100 Neut % (Auto) 70.1 H Lymph % (Auto) 18.6 L [place] % (Auto) 9.5 Eos % (Auto) 1.4 Baso % (Auto) 0.3 Absolute Neuts (auto) 5.2 Absolute Lymphs (auto) 1.37 Total Counted Not Reportable Sodium 143 Potassium 3.2 L Chloride 107 Carbon Dioxide 31.0 Anion Gap 5 BUN 16 Creatinine 0.78 Estim Creat Clear Calc 62.92 Est GFR (MDRD) Af Amer 95 Est GFR (MDRD) Non-Af 79 BUN/Creatinine Ratio 20.4 H Glucose 101 Hemoglobin A1c 5.6 Calcium 8.8 Troponin I < 0.015 Triglycerides Cholesterol LDL Cholesterol VLDL Cholesterol HDL Cholesterol 08/06/18 08/06/18 08/07/18 20:06 22:43 05:15 WBC RBC Hgb Hct MCV MCH MCHC RDW RDW Differential Plt Count MPV Immature Gran % (Auto) Neut % (Auto) Lymph % (Auto) [place] % (Auto) Eos % (Auto) Baso % (Auto) Absolute Neuts (auto) Absolute Lymphs (auto) Total Counted Sodium Potassium Chloride Carbon Dioxide Anion Gap BUN Creatinine Estim Creat Clear Calc Est GFR (MDRD) Af Amer Est GFR (MDRD) Non-Af BUN/Creatinine Ratio Glucose Hemoglobin A1c Calcium Troponin I < 0.015 < 0.015 Triglycerides 115 Cholesterol 154 LDL Cholesterol 82 VLDL Cholesterol 23 HDL Cholesterol 49 08/07/18 08/07/18 05:15 05:15 WBC 5.0 RBC 4.09 L Hgb 12.3 Hct 36.7 L MCV 89.7 MCH 30.1 MCHC 33.5 RDW 11.8 RDW Differential 37.9 Plt Count 191 MPV 10.7 Immature Gran % (Auto) 0.200 Neut % (Auto) 57.7 Lymph % (Auto) 29.1 [place] % (Auto) 9.2 Eos % (Auto) 2.8 Baso % (Auto) 1.0 Absolute Neuts (auto) 2.9 Absolute Lymphs (auto) 1.46 Total Counted Not Reportable Sodium 144 Potassium 3.8 Chloride 108 H Carbon Dioxide 28.0 Anion Gap 8 BUN 18 Creatinine 0.76 Estim Creat Clear Calc 64.58 Est GFR (MDRD) Af Amer 98 Est GFR (MDRD) Non-Af 81 BUN/Creatinine Ratio 23.5 H Glucose 92 Hemoglobin A1c Calcium 8.5 Troponin I Triglycerides Cholesterol LDL Cholesterol VLDL Cholesterol HDL Cholesterol Medical Necessity - Tobacco Use Smoking Status: Never smoker Tobacco Use: Non-smoker Assessment/Plan All Active Problems (Last Reviewed 02/01/18 @ 08:53 by Venita Cuello) Chest pain (Acute) Calculus of gallbladder with chronic cholecystitis without obstruction (Acute) 1. Chest pain-patient reports significant family history of heart disease. Troponin negative. EKG without ST-T changes. Plan for stress test in a.m. 2. Hypertension-stable, continue home Norvasc regimen. 3. Hyperlipidemia-continue statin. Fasting lipid panel within normal limits. 4. Osteoporosis-on Fosamax regimen weekly. DVT prophylaxis-heparin subcu. This patient was seen by TOMEKA Marcial under the supervision of Dr. Chawla. <Josh Chawla F - Last Filed: 08/07/18 15:54> - Physical Exam Vital Signs Temp Pulse Resp BP Pulse Ox 98.1 F 70 16 131/76 H 96 08/07/18 14:48 08/07/18 14:48 08/07/18 14:48 08/07/18 14:48 08/07/18 14:48 Oxygen Flow Rate (L/min) 2 Oxygen Delivery Method Room Air Weight: 172 lb 9.951 oz Body Mass Index (BMI) 29.6 Intake and Output for Last 24 Hours 08/05/18 08/06/18 08/07/18 23:59 23:59 23:59 Intake Total 480 / 480 360 / 360 Balance 480 / 480 360 / 360 Laboratory Tests Past 24 Hrs 08/06/18 08/06/18 08/06/18 17:15 17:15 17:15 WBC 7.4 RBC 4.16 L Hgb 12.3 Hct 37.0 MCV 88.9 MCH 29.6 MCHC 33.2 RDW 12.0 RDW Differential 38.4 Plt Count 192 MPV 10.5 Immature Gran % (Auto) 0.100 Neut % (Auto) 70.1 H Lymph % (Auto) 18.6 L [place] % (Auto) 9.5 Eos % (Auto) 1.4 Baso % (Auto) 0.3 Absolute Neuts (auto) 5.2 Absolute Lymphs (auto) 1.37 Total Counted Not Reportable Sodium 143 Potassium 3.2 L Chloride 107 Carbon Dioxide 31.0 Anion Gap 5 BUN 16 Creatinine 0.78 Estim Creat Clear Calc 62.92 Est GFR (MDRD) Af Amer 95 Est GFR (MDRD) Non-Af 79 BUN/Creatinine Ratio 20.4 H Glucose 101 Hemoglobin A1c 5.6 Calcium 8.8 Troponin I < 0.015 Triglycerides Cholesterol LDL Cholesterol VLDL Cholesterol HDL Cholesterol 08/06/18 08/06/18 08/07/18 20:06 22:43 05:15 WBC RBC Hgb Hct MCV MCH MCHC RDW RDW Differential Plt Count MPV Immature Gran % (Auto) Neut % (Auto) Lymph % (Auto) [place] % (Auto) Eos % (Auto) Baso % (Auto) Absolute Neuts (auto) Absolute Lymphs (auto) Total Counted Sodium Potassium Chloride Carbon Dioxide Anion Gap BUN Creatinine Estim Creat Clear Calc Est GFR (MDRD) Af Amer Est GFR (MDRD) Non-Af BUN/Creatinine Ratio Glucose Hemoglobin A1c Calcium Troponin I < 0.015 < 0.015 Triglycerides 115 Cholesterol 154 LDL Cholesterol 82 VLDL Cholesterol 23 HDL Cholesterol 49 08/07/18 08/07/18 05:15 05:15 WBC 5.0 RBC 4.09 L Hgb 12.3 Hct 36.7 L MCV 89.7 MCH 30.1 MCHC 33.5 RDW 11.8 RDW Differential 37.9 Plt Count 191 MPV 10.7 Immature Gran % (Auto) 0.200 Neut % (Auto) 57.7 Lymph % (Auto) 29.1 [place] % (Auto) 9.2 Eos % (Auto) 2.8 Baso % (Auto) 1.0 Absolute Neuts (auto) 2.9 Absolute Lymphs (auto) 1.46 Total Counted Not Reportable Sodium 144 Potassium 3.8 Chloride 108 H Carbon Dioxide 28.0 Anion Gap 8 BUN 18 Creatinine 0.76 Estim Creat Clear Calc 64.58 Est GFR (MDRD) Af Amer 98 Est GFR (MDRD) Non-Af 81 BUN/Creatinine Ratio 23.5 H Glucose 92 Hemoglobin A1c Calcium 8.5 Troponin I Triglycerides Cholesterol LDL Cholesterol VLDL Cholesterol HDL Cholesterol Code Visit Addendum: Dr. Chawla I personally examined the patient and reviewed the chart. I agree with the above. 3-year-old female with a history of hypertension and hyperlipidemia presenting with chest pain this been going on for about 2 weeks. She was also having increased dyspnea on exertion as well as worsening pain on exertion. Has any history of diabetes or tobacco use however there is a family history of coronary artery disease with her brother and father both having had a CABG. On admission and throughout the day today her troponin has been negative. She does not have symptoms at this time. Plan will be for a an exercise nuclear stress test. She had seen her PCP during these last 2 weeks and they had ordered a an outpatient CT scan to evaluate for pulmonary embolism which she has scheduled for next week. OBSV E&M: 54194 Initial observation care L2
[2018-08-07] MEDS: Acetaminophen 325 MG Tablet 650 MG PO ×2 (15:22→21:58)
[2018-08-07] MEDS: Atorvastatin Calcium 10 MG Tablet PO (21:56)
[2018-08-08 03:00] VITALS: PULSE 57
[2018-08-08 03:45] VITALS: BP 123/74; PULSE 68; RESP 18; TEMP 36.7; O2SAT 97
[2018-08-08 05:45] VITALS: BP 124/81; PULSE 67; RESP 16; TEMP 36.8; O2SAT 97
[2018-08-08] MEDS: Aspirin 81 MG TAB.CHEW PO (05:47)
[2018-08-08 05:55] LABS: Absolute Lymphocyte Count 1.56 X10^3/ul (0.83-4.51); Absolute Neutrophil Count 2.4 X10^3/uL (2.0-7.7); Basophil# 0.04 X10^3/uL; Basophil% 0.9 % (0-1); Eosinophil# 0.15 X10^3/uL; Eosinophils% 3.3 % (0-5); Hematocrit 35.5 % (37-47); Hemoglobin 12.2 g/dl (12.0-15.0); Lymphocyte # 1.56 X10^3/ul (4.0); Lymphocyte % 34.1 % (19-41); Mean Corp Hgb Conc 34.4 g/gl (32-36); Mean Corpuscular Hgb 30.8 pg (27.0-32.0); Mean Corpuscular Volume 89.6 fL (81-99); Mean Platelet Vol. 10.4 fl (6.2-12.0); Monocyte% 8.7 % (0-10); Neutrophil # 2.42 X10^3/uL (2.7-7.7); Neutrophil % 52.8 % (47-70); Platelet Count 192 K/mm3 (150-450); RBC Distribution Width CV 11.7 % (11.6-14.6); RBC Distribution Width SD 37.7 fl (35.1-43.9); Red Blood Count 3.96 M/mm3 (4.2-5.4); White Blood Count 4.6 K/mm3 (4.4-11.0)
--- NOTE | 2018-08-08 05:55 | EKG12_ITS ---
Test Reason : AM EKG Blood Pressure : / mmHG Vent. Rate : 065 BPM Atrial Rate : 065 BPM P-R Int : 154 ms QRS Dur : 100 ms QT Int : 400 ms P-R-T Axes : 061 031 033 degrees QTc Int : 416 ms Normal sinus rhythm Normal ECG Confirmed by GILA PARDO, LINDSAY ([id number]), purchasing expeditor CAITLIN NIELSON ([id number] on 08/11/2018 3:59:30 PM Referred By: Pamela Grimes Confirmed By:LINDSAY URIOSTEGUI MD
[2018-08-08 06:06] LABS: Anion Gap 9 (5-15); BUN 17 mg/dL (7-18); BUN/Creat Ratio 22.2 RATIO (10-20); Calcium,Total 8.5 mg/dL (8.5-10.1); Chloride 106 mmol/L (98-107); Creatinine, Serum 0.77 mg/dL (0.55-1.02); EST Glomerular Filtration Rate 81 mL/min (>60); Est Glom Filt Rate - Afr Amer 98 mL/min (>60); Estimated Creatinine Clearance 63.74 ml/min; Glucose 88 mg/dL (74-106); Potassium 3.8 mmol/L (3.5-5.1); Sodium Level 144 mmol/L (136-145)
[2018-08-08 06:13] LABS: Prothrombin Time (Protime)PT. 13.4 SECONDS (11.7-14.9)
[2018-08-08 06:31] LABS: POSITIVE COUNT NO; POSITIVE DIFFERENTIAL NO; POSITIVE MORPHOLOGY NO
[2018-08-08 06:36] VITALS: PULSE 78
[2018-08-08 06:45] LABS: Partial Thromboplast Time 34.7 Seconds (24.1-36.2)
[2018-08-08 08:50] VITALS: BP 118/72; PULSE 77; RESP 18; TEMP 36.6; O2SAT 95
[2018-08-08] MEDS: Magnesium Oxide 400 MG Tablet PO (08:59)
[2018-08-08] MEDS: amLODIPine 2.5 MG Tablet PO (09:00)
[2018-08-08] MEDS: Calcium (Elemental) 500 MG Tablet PO (09:00)
--- NOTE | 2018-08-08 09:17 | STRESSREP_ITS ---
Stress Test Report Date: 08/08/2018 Procedure: Exercise tolerance test/imaging study Indications: Chest pain Consent: Per the patient Procedure: The patient exercised on a Tony protocol for 7 minutes completing Stage II and 1 minute of Stage III achieving a peak heart rate of 150 bpm (96 % predicted maximal heart rate) with a peak blood pressure 154/68 mmHg and a peak MET capacity of 8 METs. The baseline ECG demonstrated normal sinus rhythm. The peak exercise ECG demonstrated no obvious ECG changes. There was a rare PVC during recovery. The functional capacity was considered average. There was no complaint of chest discomfort during exercise or recovery. The examination was discontinued secondary to neck discomfort. Impression: 1. Technically adequate (percent predicted maximal heart rate greater than 85%) exercise tolerance test 2. Peak exercise ECG with no obvious ECG changes 3. There was a rare PVC during recovery 4. Nuclear images pending Myocardial perfusion imaging study: Technique: The patient was injected with 11.9 mCi of technetium 99m Cardiolite and subsequently rest SPECT Cardiolite nuclear imaging was obtained in the horizontal long, vertical long, and short axis views. The patient exercised on a Tony protocol for 7 minutes completing Stage II and 1 minute of Stage III achieving a peak heart rate of 150 bpm (96 % predicted maximal heart rate) with a peak blood pressure 154/68 mmHg and a peak MET capacity of 8 METs. The patient was injected with 34.2 mCi of technetium 99m Cardiolite and subsequently stress SPECT Cardiolite nuclear imaging was obtained in the horizontal long, vertical long, and short axis views. A gated Cardiolite study at peak stress was obtained. Interpretation: Rest and stress SPECT Cardiolite nuclear imaging status post realignment, normalization, and attenuation correction, demonstrates the appearance of relative uniform tracer uptake and myocardial perfusion appearing within normal limits. There is end systolic thickening and brightening. The gated Cardiolite study demonstrates myocardial thickening and inward wall motion. The reported LVEF is 78 %. Impression: 1. Rest and stress SPECT Cardiolite nuclear imaging demonstrate relative uniform tracer uptake and myocardial perfusion appearing within normal limits. 2. The gated Cardiolite study reports an LVEF of 78 %. This note was generated with [employer] software. It may contain incorrect words, spelling, and punctuation that were not noted in checking the note before signing.
--- NOTE | 2018-08-08 09:52 | DCINST_ITS ---
- Discharge Diagnoses Current Active Problems: Current Active and Chronic Problems (Last Reviewed 02/01/18 @ 08:53 by Venita Cuello) Chest pain (Acute) You will use the following diet at home:: No restrictions Discharge Activity: Return to Normal Activity Call your doctor if you observe: Shortness of breath, Dizziness, Fainting spells, Chest pain Allergies/Adverse Reactions: Allergies lidocaine Adverse Reaction (Verified 08/06/18 16:47) Itching Medications to take at Discharge coenzyme Q10 200 mg capsule 200 mg PO DAILY 10/15/17 atorvastatin 20 mg tablet 10 mg PO QDAY tab 12/30/17 cholecalciferol (vitamin D3) 10,000 unit capsule 10,000 unit PO QDAY 12/30/17 Calcium Carbonate [Calcium] 600 mg PO BID 01/19/18 Alendronate Sodium [Fosamax] 70 mg PO QWEEK 08/06/18 Amlodipine [Norvasc] 2.5 mg PO DAILY 08/06/18 Magnesium 500 mg PO DAILY 08/06/18 Primary Care Physician: Mylene Craig NP-C [Primary Care Provider] - Please follow up with your Primary Care Physician in: 1 Week Test Results: Test results from this visit will be discussed in further detail at your follow- up appointment, if applicable. Proposed Discharge Date: 08/08/18
--- NOTE | 2018-08-08 09:57 | PCM.DC.SUM ---
<Jacqui Byrne - Last Filed: 08/08/18 10:05> Discharge Date and Diagnosis Date of Admission: 08/06/18 Date of Discharge: 08/08/18 - Primary Discharge Diagnosis Active and Suspected Problems (Last Reviewed 02/01/18 @ 08:53 by Venita Cuello) 1. Chest pain, ACS ruled out - Secondary Discharge Diagnosis Chronic Problems (Last Reviewed 02/01/18 @ 08:53 by Venita Cuello) Hypertension Hyperlipidemia Osteoporosis Hospital Course and Treatment Imaging Results: Diagnostic Data Chest X-Ray 08/06/18 17:05 IMPRESSION: Normal x-ray examination of the chest. Electronically Signed: Maico Lehman MD at 17:44 EDT , Service support , Operations: None Procedures: Stress test Summary of Care Provided: The patient is a 63 year old F admitted 08/06/2018 due to chest pain. 1. Chest pain-patient reports significant family history of heart disease. Troponin negative. EKG without ST-T changes. Stress test without evidence of ischemia. ACS ruled out. Recommend trial of PPI if patient continues to have intermittent chest discomfort to see if this improves her symptoms. 2. Hypertension-stable, continue home Norvasc regimen. 3. Hyperlipidemia-continue statin. Fasting lipid panel within normal limits. 4. Osteoporosis-on Fosamax regimen weekly. General: Alert, Oriented x3, Cooperative, No apparent distress HEENT: Atraumatic, PERRLA, EOMI, Normocephalic Neck: Supple, No JVD, Negative Carotid Bruits Lungs: Clear to auscultation, Normal air movement Cardiovascular: Regular rate, Regular Rhythm, Normal S1, Normal S2, No murmurs Abdomen: Bowel Sounds Present, Soft, Non Tender, Non-Distended Extremities: No clubbing, No cyanosis, No edema, Capillary Refill Less than 3 Seconds Skin: No rashes, No breakdown Musculoskeletal: No Tenderness to Palpation of Joints or Extremities Neurological: Cranial nerves II-XII grossly intact, Neuro grossly intact Psych/Mental Status: Normal Affect, Appropriate Patient seen exam prior to discharge. Physical assessment as noted above. Patient stable for discharge home with follow-up with primary care physician in 1 week. This patient was seen by TOMEKA Marcial under the supervision of Dr. Byers. - Physical Exam Vital Signs Temp Pulse Resp BP Pulse Ox 97.8 F 77 18 118/72 95 08/08/18 08:50 08/08/18 08:50 08/08/18 08:50 08/08/18 08:50 08/08/18 08:50 Oxygen Flow Rate (L/min) 2 Oxygen Delivery Method Room Air Weight: 172 lb 9.951 oz Body Mass Index (BMI) 29.6 Intake and Output for Last 24 Hours 08/06/18 08/07/18 08/08/18 23:59 23:59 23:59 Intake Total 480 / 480 1080 / 1080 Balance 480 / 480 1080 / 1080 Laboratory Tests Past 24 Hrs 08/08/18 08/08/18 08/08/18 05:10 05:10 05:10 WBC 4.6 RBC 3.96 L Hgb 12.2 Hct 35.5 L MCV 89.6 MCH 30.8 MCHC 34.4 RDW 11.7 RDW Differential 37.7 Plt Count 192 MPV 10.4 Immature Gran % (Auto) 0.200 Neut % (Auto) 52.8 Lymph % (Auto) 34.1 [place] % (Auto) 8.7 Eos % (Auto) 3.3 Baso % (Auto) 0.9 Absolute Neuts (auto) 2.4 Absolute Lymphs (auto) 1.56 Total Counted Not Reportable PT 13.4 INR 1.0 APTT 34.7 Sodium 144 Potassium 3.8 Chloride 106 Carbon Dioxide 29.0 Anion Gap 9 BUN 17 Creatinine 0.77 Estim Creat Clear Calc 63.74 Est GFR (MDRD) Af Amer 98 Est GFR (MDRD) Non-Af 81 BUN/Creatinine Ratio 22.2 H Glucose 88 Calcium 8.5 Discharge Diet: No Restrictions Discharge Activity: Return to Normal Activity Call your doctor if you observe: Shortness of breath, Dizziness, Fainting spells, Chest pain Home Medications: Medications to take at Discharge coenzyme Q10 200 mg capsule 200 mg PO DAILY 10/15/17 atorvastatin 20 mg tablet 10 mg PO QDAY tab 12/30/17 cholecalciferol (vitamin D3) 10,000 unit capsule 10,000 unit PO QDAY 12/30/17 Calcium Carbonate [Calcium] 600 mg PO BID 01/19/18 Alendronate Sodium [Fosamax] 70 mg PO QWEEK 08/06/18 Amlodipine [Norvasc] 2.5 mg PO DAILY 08/06/18 Magnesium 500 mg PO DAILY 08/06/18 Primary Care Physician: Mylene Craig NP-C [Primary Care Provider] - Please follow up with your Primary Care Physician in: 1 Week Disposition: Home Minutes spent on discharge:: 35 Patient Condition:: Stable Medical Necessity - Tobacco Use Smoking Status: Never smoker Tobacco Use: Non-smoker Meaningful Use Info Meaningful Use Diagnoses (Choose all that apply): None applicable <Mark Byers E - Last Filed: 08/08/18 11:07> Discharge Date and Diagnosis - Secondary Discharge Diagnosis Chronic Problems (Last Reviewed 02/01/18 @ 08:53 by Venita Cuello) Esophageal reflux (Chronic) Hospital Course and Treatment Imaging Results: 08/08/18 08:00 Nuclear Stress Test - Treadmil [NM] Routine Summary of Care Provided: Hospitalist note: Discharge summary above reviewed and I agree with the above discharge plan. Patient was admitted for intermittent chest pain that has been going on for couple of weeks. It was atypical for ACS. Her initial and repeat EKG was unremarkable without evidence of acute ischemic changes. Troponin was negative x3. Chest x-ray showed no acute findings. She underwent nuclear stress test that reported as negative without evidence of stress-induced myocardial ischemia. Acute coronary syndrome ruled out. Her routine blood work was unremarkable. Her vital signs were stable throughout admission. Lipid profile revealed normal cholesterol, LDL and HDL cholesterol at target. Her symptoms could be due to musculoskeletal pain. Patient discharged home in a stable medical condition, recommended to use [id number] Tylenol or Aleve for pain control as needed, recommended follow-up with PCP in 1 week. - Physical Exam General: Alert, Oriented x3, Cooperative, No apparent distress. HEENT: Atraumatic, PERRLA, EOMI. Neck: Supple, No JVD, Negative Carotid Bruits, Trachea Midline, Thyroid Normal. Lungs: Clear to auscultation, Normal air movement, No rhonchi, No wheeze, No rales. Cardiovascular: Regular rate, Regular Rhythm, Normal S1, Normal S2, PMI Normal. Abdomen: Bowel Sounds Present, Soft, Non Tender, Non-Distended, No Hepato-splenomegaly. Extremities: No clubbing, No cyanosis, No edema Skin: No rashes, No breakdown Neurological: Neuro grossly intact Vital Signs are stable. This note was generated with [employer] dictation software. It may contain incorrect words, spelling, and punctuation that were not noted in checking the note before signing. - Physical Exam Vital Signs Temp Pulse Resp BP Pulse Ox 97.8 F 77 18 118/72 95 08/08/18 08:50 08/08/18 08:50 08/08/18 08:50 08/08/18 08:50 08/08/18 08:50 Oxygen Flow Rate (L/min) 2 Oxygen Delivery Method Room Air Weight: 172 lb 9.951 oz Body Mass Index (BMI) 29.6 Intake and Output for Last 24 Hours 08/06/18 08/07/18 08/08/18 23:59 23:59 23:59 Intake Total 480 / 480 1080 / 1080 Balance 480 / 480 1080 / 1080 Laboratory Tests Past 24 Hrs 08/08/18 08/08/18 08/08/18 05:10 05:10 05:10 WBC 4.6 RBC 3.96 L Hgb 12.2 Hct 35.5 L MCV 89.6 MCH 30.8 MCHC 34.4 RDW 11.7 RDW Differential 37.7 Plt Count 192 MPV 10.4 Immature Gran % (Auto) 0.200 Neut % (Auto) 52.8 Lymph % (Auto) 34.1 [place] % (Auto) 8.7 Eos % (Auto) 3.3 Baso % (Auto) 0.9 Absolute Neuts (auto) 2.4 Absolute Lymphs (auto) 1.56 Total Counted Not Reportable PT 13.4 INR 1.0 APTT 34.7 Sodium 144 Potassium 3.8 Chloride 106 Carbon Dioxide 29.0 Anion Gap 9 BUN 17 Creatinine 0.77 Estim Creat Clear Calc 63.74 Est GFR (MDRD) Af Amer 98 Est GFR (MDRD) Non-Af 81 BUN/Creatinine Ratio 22.2 H Glucose 88 Calcium 8.5 Code Visit OBSV E&M: 34762 Observation care discharge
--- NOTE | 2018-08-08 10:05 | DS.PCM_ITS ---
<Jacqui Byrne - Last Filed: 08/08/18 10:05> Discharge Date and Diagnosis Date of Admission: 08/06/18 Date of Discharge: 08/08/18 - Primary Discharge Diagnosis Active and Suspected Problems (Last Reviewed 02/01/18 @ 08:53 by Venita Cuello) 1. Chest pain, ACS ruled out - Secondary Discharge Diagnosis Chronic Problems (Last Reviewed 02/01/18 @ 08:53 by Venita Cuello) Hypertension Hyperlipidemia Osteoporosis Hospital Course and Treatment Imaging Results: Diagnostic Data Chest X-Ray 08/06/18 17:05 IMPRESSION: Normal x-ray examination of the chest. Electronically Signed: Maico Lehman MD at 17:44 EDT , Service support , Operations: None Procedures: Stress test Summary of Care Provided: The patient is a 63 year old F admitted 08/06/2018 due to chest pain. 1. Chest pain-patient reports significant family history of heart disease. Troponin negative. EKG without ST-T changes. Stress test without evidence of ischemia. ACS ruled out. Recommend trial of PPI if patient continues to have intermittent chest discomfort to see if this improves her symptoms. 2. Hypertension-stable, continue home Norvasc regimen. 3. Hyperlipidemia-continue statin. Fasting lipid panel within normal limits. 4. Osteoporosis-on Fosamax regimen weekly. General: Alert, Oriented x3, Cooperative, No apparent distress HEENT: Atraumatic, PERRLA, EOMI, Normocephalic Neck: Supple, No JVD, Negative Carotid Bruits Lungs: Clear to auscultation, Normal air movement Cardiovascular: Regular rate, Regular Rhythm, Normal S1, Normal S2, No murmurs Abdomen: Bowel Sounds Present, Soft, Non Tender, Non-Distended Extremities: No clubbing, No cyanosis, No edema, Capillary Refill Less than 3 Seconds Skin: No rashes, No breakdown Musculoskeletal: No Tenderness to Palpation of Joints or Extremities Neurological: Cranial nerves II-XII grossly intact, Neuro grossly intact Psych/Mental Status: Normal Affect, Appropriate Patient seen exam prior to discharge. Physical assessment as noted above. Alyssa ent stable for discharge home with follow-up with primary care physician in 1 week. This patient was seen by TOMEKA Marcial under the supervision of Dr. Byers. - Physical Exam Vital Signs Temp Pulse Resp BP Pulse Ox 97.8 F 77 18 118/72 95 08/08/18 08:50 08/08/18 08:50 08/08/18 08:50 08/08/18 08:50 08/08/18 08:50 Oxygen Flow Rate (L/min) 2 Oxygen Delivery Method Room Air Weight: 172 lb 9.951 oz Body Mass Index (BMI) 29.6 Intake and Output for Last 24 Hours 08/06/18 08/07/18 08/08/18 23:59 23:59 23:59 Intake Total 480 / 480 1080 / 1080 Balance 480 / 480 1080 / 1080 Laboratory Tests Past 24 Hrs 08/08/18 08/08/18 08/08/18 05:10 05:10 05:10 WBC 4.6 RBC 3.96 L Hgb 12.2 Hct 35.5 L MCV 89.6 MCH 30.8 MCHC 34.4 RDW 11.7 RDW Differential 37.7 Plt Count 192 MPV 10.4 Immature Gran % (Auto) 0.200 Neut % (Auto) 52.8 Lymph % (Auto) 34.1 [place] % (Auto) 8.7 Eos % (Auto) 3.3 Baso % (Auto) 0.9 Absolute Neuts (auto) 2.4 Absolute Lymphs (auto) 1.56 Total Counted Not Reportable PT 13.4 INR 1.0 APTT 34.7 Sodium 144 Potassium 3.8 Chloride 106 Carbon Dioxide 29.0 Anion Gap 9 BUN 17 Creatinine 0.77 Estim Creat Clear Calc 63.74 Est GFR (MDRD) Af Amer 98 Est GFR (MDRD) Non-Af 81 BUN/Creatinine Ratio 22.2 H Glucose 88 Calcium 8.5 Discharge Diet: No Restrictions Discharge Activity: Return to Normal Activity Call your doctor if you observe: Shortness of breath, Dizziness, Fainting spell s, Chest pain Home Medications: Medications to take at Discharge coenzyme Q10 200 mg capsule 200 mg PO DAILY 10/15/17 atorvastatin 20 mg tablet 10 mg PO QDAY tab 12/30/17 cholecalciferol (vitamin D3) 10,000 unit capsule 10,000 unit PO QDAY 12/30/17 Calcium Carbonate [Calcium] 600 mg PO BID 01/19/18 Alendronate Sodium [Fosamax] 70 mg PO QWEEK 08/06/18 Amlodipine [Norvasc] 2.5 mg PO DAILY 08/06/18 Magnesium 500 mg PO DAILY 08/06/18 Primary Care Physician: Mylene Craig NP-C [Primary Care Provider] - Please follow up with your Primary Care Physician in: 1 Week Disposition: Home Minutes spent on discharge:: 35 Patient Condition:: Stable Medical Necessity - Tobacco Use Smoking Status: Never smoker Tobacco Use: Non-smoker Meaningful Use Info Meaningful Use Diagnoses (Choose all that apply): None applicable <Mark Byers E - Last Filed: 08/08/18 11:07> Discharge Date and Diagnosis - Secondary Discharge Diagnosis Chronic Problems (Last Reviewed 02/01/18 @ 08:53 by Venita Cuello) Esophageal reflux (Chronic) Hospital Course and Treatment Imaging Results: 08/08/18 08:00 Nuclear Stress Test - Treadmil [NM] Routine Summary of Care Provided: Hospitalist note: Discharge summary above reviewed and I agree with the above discharge plan. Patient was admitted for intermittent chest pain that has been going on for couple of weeks. It was atypical for ACS. Her initial and repeat EKG was unremarkable without evidence of acute ischemic changes. Troponin was negative x3. Chest x-ray showed no acute findings. She underwent nuclear stress test that reported as negative without evidence of stress-induced myocardial ischemia. Acute coronary syndrome ruled out. Her routine blood work was unremarkable. Her vital signs were stable throughout admission. Lipid profile revealed normal cholesterol, LDL and HDL cholesterol at target. Her symptoms could be due to musculoskeletal pain. Patient discharged home in a stable medical condition, recommended to use [id number] Tylenol or Aleve for pain control as needed, recommended follow-up with PCP in 1 week. - Physical Exam General: Alert, Oriented x3, Cooperative, No apparent distress. HEENT: Atraumatic, PERRLA, EOMI. Neck: Supple, No JVD, Negative Carotid Bruits, Trachea Midline, Thyroid Normal. Lungs: Clear to auscultation, Normal air movement, No rhonchi, No wheeze, No rales. Cardiovascular: Regular rate, Regular Rhythm, Normal S1, Normal S2, PMI Normal. Abdomen: Bowel Sounds Present, Soft, Non Tender, Non-Distended, No Hepato- splenomegaly. Extremities: No clubbing, No cyanosis, No edema Skin: No rashes, No breakdown Neurological: Neuro grossly intact Vital Signs are stable. This note was generated with [employer] dictation software. It may contain incorrect words, spelling, and punctuation that were not noted in checking the note before signing. - Physical Exam Vital Signs Temp Pulse Resp BP Pulse Ox 97.8 F 77 18 118/72 95 08/08/18 08:50 08/08/18 08:50 08/08/18 08:50 08/08/18 08:50 08/08/18 08:50 Oxygen Flow Rate (L/min) 2 Oxygen Delivery Method Room Air Weight: 172 lb 9.951 oz Body Mass Index (BMI) 29.6 Intake and Output for Last 24 Hours 08/06/18 08/07/18 08/08/18 23:59 23:59 23:59 Intake Total 480 / 480 1080 / 1080 Balance 480 / 480 1080 / 1080 Laboratory Tests Past 24 Hrs 08/08/18 08/08/18 08/08/18 05:10 05:10 05:10 WBC 4.6 RBC 3.96 L Hgb 12.2 Hct 35.5 L MCV 89.6 MCH 30.8 MCHC 34.4 RDW 11.7 RDW Differential 37.7 Plt Count 192 MPV 10.4 Immature Gran % (Auto) 0.200 Neut % (Auto) 52.8 Lymph % (Auto) 34.1 [place] % (Auto) 8.7 Eos % (Auto) 3.3 Baso % (Auto) 0.9 Absolute Neuts (auto) 2.4 Absolute Lymphs (auto) 1.56 Total Counted Not Reportable PT 13.4 INR 1.0 APTT 34.7 Sodium 144 Potassium 3.8 Chloride 106 Carbon Dioxide 29.0 Anion Gap 9 BUN 17 Creatinine 0.77 Estim Creat Clear Calc 63.74 Est GFR (MDRD) Af Amer 98 Est GFR (MDRD) Non-Af 81 BUN/Creatinine Ratio 22.2 H Glucose 88 Calcium 8.5 Code Visit OBSV E&M: [id number] Observation care discharge
== END 2018-08-08 09:51 | disposition home or self-care (01) ==
LOC: ED 17:35 → PCU 18:21
PROVIDERS: Admitting Provider Student in an Organized Health Care Education/Training Program; Emergency Provider Emergency Medicine; Family Provider Nurse Practitioner; PCP Nurse Practitioner; Referring Provider Student in an Organized Health Care Education/Training Program; Visit Provider Hospitalist
DX: R07.89 Other chest pain (principal); R06.02 Shortness of breath; Z82.49 Family history of ischemic heart disease and other diseases of the circulatory system; Z79.899 Other long term (current) drug therapy; E87.6 Hypokalemia; E78.5 Hyperlipidemia, unspecified; I10 Essential (primary) hypertension; K21.9 Gastro-esophageal reflux disease without esophagitis; M81.0 Age-related osteoporosis without current pathological fracture
CPT/HCPCS: 36415; 71045; 78452; 80048; 80061; 83036; 84484; 85025; 85610; 85730; 93005; 93017; 96360; 96361; 96372; 99218; 99283; A9500; J7030; A4216; G0378

== ENCOUNTER → 2018-09-07 15:01 | Outpatient (CLI) | payer OTHER, SELFPAY ==
--- NOTE | 2018-09-07 15:03 | ECHOD_ITS ---
Reason For Study: SOB Procedure This was a 2D Doppler, Color Flow transthoracic echocardiogram. Exam performed in department. Left Ventricle Normal size and thickness. The estimated ejection fraction is 65 %. Stage 2 diastolic dysfunction. No regional wall motion abnormalities noted. Right Ventricle Normal size and thickness. Normal systolic function. Atria Normal left atrium. Normal right atrium. Normal atrial septum. Mitral Valve The mitral valve is structurally normal. No prolapse or stenosis seen. Mild (1+) mitral valve insufficiency. Tricuspid Valve Normal tricuspid valve. Mild (1+) tricuspid valve insufficiency. Right ventricular systolic pressure estimated to be 31 mmHg. Aortic Valve Trisinus/trileaflet aortic valve. Mild diffuse aortic valve thickening. Trivial aortic valve insufficiency. Pulmonic Valve Normal pulmonic valve. Trivial pulmonic valve insufficiency. Great Vessels Normal aortic root. Normal arch. Normal inferior vena cava. Inferior vena cava collapse with sniff. Pericardium/Pleural No pericardial effusion. MMode/2D Measurements & Calculations LVIDd: 3.9 cm IVSd: 1.1 cm Ao root diam: 2.9 cm LVIDs: 2.7 cm LVPWd: 0.78 cm RVDd: 3.2 cm FS: 32.1 % LAV(MOD-bp): 54.6 ml LVAd ap4: 30.7 cm2 SV(MOD-sp4): 63.1 ml LAV(MOD-bp) Indexed: 29.9 ml/m2 EDV(MOD-sp4): 94.4 ml LAV(MOD-sp2): 62.3 ml EDV(sp4-el): 99.7 ml LAV(MOD-sp4): 46.6 ml LVAs ap4: 15.3 cm2 ESV(MOD-sp4): 31.4 ml ESV(sp4-el): 33.4 ml EF(MOD-sp4): 66.8 % EF(sp4-el): 66.5 % SV(sp4-el): 66.4 ml LA A4 area: 17.3 cm2 LA dimension(2D): 3.8 cm RA A4 area: 15.6 cm2 Time Measurements MV dec time: 0.19 sec Doppler Measurements & Calculations MV E max henry: 102.6 cm/sec Lat Peak E' Henry: 9.6 cm/sec Med Peak E' Henry: 7.8 cm/sec MV A max henry: 98.8 cm/sec E/E' lat: 10.6 E/E' med: 13.1 MV E/A: 1.0 Ao V2 max: 176.2 cm/sec AI max henry: 385.7 cm/sec LV V1 max: 152.0 cm/sec Ao max P.4 mmHg AI max P.5 mmHg LV V1 max P.2 mmHg AI dec slope: 181.2 cm/sec2 AI P1/2t: 623.3 msec PA V2 max: 108.6 cm/sec PI end-d henry: 67.7 cm/sec TR max henry: 253.2 cm/sec TR max P.7 mmHg Interpretation Summary The estimated ejection fraction is 65 %. Stage 2 diastolic dysfunction. Mild (1+) mitral valve insufficiency. Mild (1+) tricuspid valve insufficiency. Right ventricular systolic pressure estimated to be 31 mmHg. Trivial aortic valve insufficiency. Compared to echo report dated 04/08/2015, no appreciable changes noted. Ordering Physician: Mylene Craig Referring Physician: Mylene Craig Performed By: Gissel Coleman RDCS
--- OUTSIDE RECORDS SUMMARY | 2018-11-03 01:05 | XMS RPT_ITS | Continuity of Care Document ---
:1955 Author Organization [facility] Address [address] [place] [address] Phone Care Team Providers Name Role Phone Kiara GLADISMylene E Unavailable Dr. Cliff Eubanks Unavailable Chepe ULLOA MD , Chidi Dunlap Unavailable Kylee Mckeon Unavailable [facility] SHIVA, Milton Tompkins Unavailable Chayo Ku Unavailable Jodi Pinto Unavailable Unavailable Slarb [employer], Adrienne Unavailable Unavailable Manmattk, Carmen Unavailable Unavailable Long [employer], Ines L Unavailable Unavailable Unavailable Unavailable Problems Name Dates Details Abnormal CBC (R79.89, 790.6) Status: Active Abnormal EKG (R94.31, 794.31) Comments: echo good, possibly related to potassium Status: Active Aortic valve disorder (I35.9, 424.1) Comments: mild AI no signs and symptoms tell what would be signs and symptoms and will recheck in 3-5 years or sooner if signs and symptoms Status: Active Bilateral hearing loss due to cerumen impaction (H61.23, 389.8) Status: Active BMI 29.0-29.9,adult (Z68.29, V85.25) Status: Active BMI 29.0-29.9,adult (Z68.29, V85.25) Status: Active BMI 30.0-30.9,adult (Z68.30, V85.30) Status: Active BMI 30.0-30.9,adult (Z68.30, V85.30) Status: Active BMI 30.0-30.9,adult (Z68.30, V85.30) Status: Active Bone loss (M89.8X9, 733.99) Comments: around bone in tttoth fiorta doing surgery to build back up around it. Status: Active Breast cancer screening (Z12.31, V76.10) Status: Active Bruising (T14.8XXA, 924.9) Comments: will monitor with CBC and liver enzyme, resolving Status: Active Cerumen impaction (H61.20, 380.4) Comments: both ears and hearing loss from it Status: Active Chest pain (R07.9, 786.50) Comments: ruled out cardiac, ? musculoskeletal or GI, not taking prilosec using tums will monitor could this be se of alondranateHad stress test Status: Active Chest pain on breathing (R07.1, 786.52) Status: Active Current nonsmoker (Renamed from Current non-smoker) (Z78.9, V49.89) Status: Active Deliveries (Parity) Comments: 4 Status: Active Elevated blood pressure reading (R03.0, 796.2) Comments: continue norvasc 2.5mg Status: Active Elevated liver enzymes (R74.8, 790.5) Comments: on statin repeat in Sep12-01-17 Elevated LFT's Status: Active Encounter for general adult medical examination w/o abnormal findings (Renamed from Encounter for general adult medical examination without abnormal findings) (Z00.00, V70.9) Comments: mammogram 10/15/15, repeta 1 yrBD: 10/15/15 osteoporotic Status: Active Encounter for screening mammogram for breast cancer (Renamed from Encounter for screening mammogram for malignant neoplasm of breast) (Z12.31, V76.12) Status: Active Family history of early CAD (Z82.49, V17.3) Status: Active GERD (gastroesophageal reflux disease) (K21.9, 530.81) Comments: use TUMS OTC Status: Active H/O: hysterectomy (Z90.710, V88.01) Comments: precancerous cells on hysterctomy.Colonoscopy 2010?mammogram:around fall. Status: Active Headache (R51, 784.0) Comments: Tension headaches? 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 Status: Active Hematuria (R31.9, 599.70) Comments: heamturia, jacky cystoscopy 05/07/16: cystitis.Had hematuria 3 times in 03/26Has h/o kidney stonesCT scan 10/26 Status: Active Hematuria (R31.9, 599.70) Comments: intermittant hematuria painless, saw Jacky in past cystosocpy negative, urine today neg (3-2-18) Status: Active Hematuria (R31.9, 599.70) Status: Active Hip pain, bilateral (M25.551, 719.45) Comments: will see what labs are like Status: Active History of kidney stones (Z87.442, V13.01) Comments: treating as if Status: Active Hypercholesteremia (E78.00, 272.0) Status: Active Hypertension (I10, 401.9) Comments: controlled goal <130/80, stress test neg Status: Active Hypokalemia (E87.6, 276.8) Comments: ARR is 40 in normal range top end. rennin low. 24 hour okay. 11-15 K is 3.4 just on diet alone no meds. will recheck no other signs and symptoms of hyperaldo. when checked yodit/PRA is over 10 at 28. ca n recheck 24 hour urine after 3 days of salt load (should be less than 14 mcq/day) Status: Active LOW BACK PAIN (M54.5, 724.2) Comments: check urine cx Status: Active Need for prophylactic vaccination and inoculation against influenza (Renamed from Need for immunization against influenza) (Z23, V04.81) Status: Active NEED FOR PROPHYLACTIC VACCINATION AND INOCULATION AGAINST INFLUENZA (V04.81) (Renamed from Need for prophylactic vaccination and inoculation against influenza) (Z23, V04.81) Status: Active Nonsmoker (Z78.9, V49.89) Status: Active Numerous moles (D22.9, 216.9) Status: Active Obstructive sleep apnea on CPAP (G47.33, 327.23) Comments: Dr. baptiste noticed small airway on exam but not recommend surgery for. Status: Active Osteoporosis (M81.0, 733.00) Comments: off fosamax because been 5 yearsBD 10/26: reveaeled osteoprorosis, (repeat Oct 2017) bone density worsen small amount as expected because off meds for holiday because atypical fx and jaw bone weakening with medsDr DB started alendronate 70 q week,. (April 2016) Needs to restart it for the next 2 years (stop April 2018) Has bone loss jaw, will discuss Tymlos and prolia, paperwork (thru [employer] and [facility]). She checked with Prolia and cost about 600.00 each Takes D3 70831 weekly with alandronate (she stopped alandronate Oct 2017) needs to go another 6 months into Oct osteoporosis , on alendronate , upsets stomachOn boniva and fosamax beforeRestarted alendronate in april 2016 Status: Active Over weight (E66.3, 278.02) Comments: stable Status: Active Pregnancies () Comments: 4 Status: Active Tremor (R25.1, 781.0) Comments: ? essential sister had do not see now. Status: Active Trigger finger, right (M65.30, 727.03) Comments: seeing Dr. Alves Status: Active Trigger thumb, right (727.03) Comments: refer to chicorellyinjection helpedright middle finger and left thumbs. Status: Active Unspecified Diagnosis Status: Active Unspecified Diagnosis Status: Active Unspecified Diagnosis Status: Active UTI symptoms (R39.9, 788.99) Status: Active Vitamin D deficiency (E55.9, 268.9) Status: Active Medications Name Dates Details Alendronate Sodium 70 MG Oral Tablet 1 (one) Tablet weekly for 90 days Quantity: 12 {Tablet} Refills: 1 Ordered:15-Apr-2018 Mylene Craig CNP, CNP Yesica Start : 15-Apr-2018 Active Atorvastatin Calcium 10 MG Oral Tablet 1 Tablet daily for 90 days Quantity: 90 {Tablet} Refills: 3 Ordered:19-Jul-2018 Kiara GRIFFITH, Mylene Yocasta GRIFFITH, Yesica Start : 19-Jul-2018 Active Calcium 500 MG Oral Capsule daily (500 MG) Active Coenzyme Q10 200 MG Oral Capsule 1 qd for 0 days Refills: 0 Ordered:12-May-2016 Manjit Musa MD Start : 12-May-2016 Active Magnesium 250 MG Oral Tablet daily (250 MG) Active Norvasc 2.5 MG Oral Tablet 1 (one) Tablet Tablet daily for 0 days Quantity: 30 {Tablet} Refills: 3 Ordered:27-Jul-2018 Jodi Pinto Start : 27-Jul-2018 Active vitamin d3 1200 units daily Active ALENDRONATE SODIUM, 70MG (Oral Tablet) 1 q weekly (70 MG) Inactive BRE, 180MG (Oral Tablet) 1 for 0 days Refills: 0 Ordered:08-Jan-2011 Martha Puckett LPN Start : 02-Oct-2009 End : 08-Jan-2011 Inactive ASPIRIN, 81MG (Oral Tablet) 1 qd for 0 days Refills: 0 Ordered:08-Jan-2011 Martha Puckett LPN End : 08-Jan-2011 Inactive Augmentin 875-125 MG Oral Tablet 1 (one) Tablet bid for 0 days Quantity: 20 {Tablet} Refills: 0 Ordered:27-Aug-2017 Adrienne Tirado LPN Start : 10-Aug-2017 End : 27-Aug-2017 Inactive Bactrim DS 800-160 MG Oral Tablet 1 (one) Tablet bid for 7 days Quantity: 14 {Tablet} Refills: 0 Ordered:14-May-2017 Mylene Craig CNP, CNP Yesica Start : 14-May-2017 End : 21-May-2017 Inactive BONIVA, 150MG (Oral Tablet) 1 q monthly for 0 days Refills: 0 Ordered:29-Jun-2011 SHANKAR Cleary End : 29-Jun-2011 Inactive Calcium Inactive Comments:With vitamin D 600 plus 800 Calcium With D 1200mg/700IU Inactive CENTRUM SILVER (Oral Tablet) 1 qd for 0 days Refills: 0 Ordered:08-Jan-2011 Martha Puckett LPN End : 08-Jan-2011 Inactive CHERATUSSIN AC, 100-10MG/5ML (Oral Syrup) 1 Teaspoon(s) qhs prn for cough for 0 days Quantity: 6 {Ounce(s)} Refills: 0 Ordered:18-Jan-2013 Martha Puckett LPN Start : 31-Aug-2012 End : 18-Jan-2013 Inactive Cipro 500 MG Oral Tablet 1 (one) Tablet bid for 7 days Quantity: 14 {Tablet} Refills: 0 Ordered:28-Apr-2017 Kiara GRIFFITH, Mylene Cleary CNP Start : 28-Apr-2017 End : 05-May-2017 Inactive CIPRO, 250MG (Oral Tablet) 1 (one) Tablet bid for 3 days Quantity: 6 {Tablet} Refills: 0 Ordered:02-Oct-2009 Kiara GRIFFITH, Mylene Cleary CNP Start : 02-Oct-2009 End : 05-Oct-2009 Inactive CIPROFLOXACIN HCL, 500MG (Oral Tablet) 1 (one) Tablet bid for 10 days Quantity: 20 {Tablet} Refills: 0 Ordered:18-Dec-2014 Kiara GRIFFITH, Mylene Cleary CNP Start : 18-Dec-2014 End : 28-Dec-2014 Inactive CYSTEX (Oral Liquid) 1 (one) Tablespoon Tablespoon daily for 0 days Quantity: 6 {Ounce} Refills: 0 Ordered:25-Mar-2015 SHANKAR Cleary Start : 18-Dec-2014 End : 25-Mar-2015 Inactive DOXYCYCLINE HYCLATE, 100MG (Oral Capsule) 1 Capsule bid for 2 weeks then one a day for 30 days Refills: 2 Ordered:21-Apr-2012 Ines Jensen LPN Start : 02-Nov-2011 End : 21-Apr-2012 Inactive FLAXSEED OIL, 1000MG (Oral Capsule) 1 qd for 0 days Refills: 0 Ordered:08-Jan-2011 Martha Puckett LPN End : 08-Jan-2011 Inactive KETOROLAC TROMETHAMINE, 10MG (Oral Tablet) 1 Tablet q6hrs x2 days for 2 days Quantity: 8 {Tablet} Refills: 0 Ordered:11-Nov-2015 Ana Lauraanaart GRIFFITH Mylene Farmerart GRIFFITH, Mylene Duenas Start : 11-Nov-2015 End : 13-Nov-2015 Inactive Comments:pt got shot of torodol today Ocuflox 0.3 % Ophthalmic Solution 1-2 gtts Metric Drop Metric Drop q2-4 h x 2 days 1-2 gtts qid x 5 days for 0 days Quantity: 1 {Bottle} Refills: 0 Ordered:27-Aug-2017 Candida MADRID Adrienne Start : 13-Jan-2016 End : 27-Aug-2017 Inactive OMEPRAZOLE, 20MG (Oral Capsule Delayed Release) 1 qod for 0 days Refills: 0 Ordered:08-Jan-2011 Martha Puckett LPN End : 08-Jan-2011 Inactive POTASSIUM CHLORIDE ER, 20MEQ (Oral Tablet Extended Release) 1 (one) Tablet ER Tablet ER daily for 0 days Quantity: 30 {Tablet} Refills: 0 Ordered:16-Sep-2015 SHANKAR Cleary Start : 25-Mar-2015 End : 16-Sep-2015 Inactive PREDNISONE, 10MG (Oral Tablet) 3 (three) Tablet daily for 7 days Quantity: 21 {Tablet} Refills: 0 Ordered:08-Jan-2011 Ana Lauraanaart GRIFFITH Mylene Farmerart GRIFFITH, Mylene Duenas Start : 08-Jan-2011 End : 15-Jan-2011 Inactive PROMETHAZINE HCL, 25MG (Oral Tablet) 1 Tablet q6-8 hrs prn for nause for 0 days Quantity: 30 {Tablet} Refills: 0 Ordered:18-Sep-2013 SHANKAR Cleary Start : 18-Jan-2013 End : 18-Sep-2013 Inactive TERBINAFINE HCL, 250MG (Oral Tablet) 1 qd (250 MG) Inactive Comments:Dr. Muna SCHNEIDER, 0.25% (External Cream) 1 Cream bid for 0 days Quantity: 1 {Cream} Refills: 0 Ordered:29-Jun-2011 SHANKAR Cleary Start : 08-Jan-2011 End : 29-Jun-2011 Inactive TORADOL ORAL, 10MG (Oral Tablet) 1 (one) Tablet q6hrs for 1 days Quantity: 8 {Tablet} Refills: 0 Ordered:02-Oct-2009 Kiara GRIFFITH, Mylene Rust CNP, Mylene Duenas Start : 02-Oct-2009 End : 03-Oct-2009 Inactive Vitamin D (Cholecalciferol) 1000 UNIT Oral Capsule 5 Capsule daily for 0 days Quantity: 30 {Capsule} Refills: 0 Ordered:15-Apr-2018 Adrienne Tirado LPN Start : 10-Dec-2017 End : 15-Apr-2018 Inactive Vitamin D3 45020 UNIT Oral Capsule 1 (one) Capsule Capsule Qweek for 30 days Quantity: 30 {Capsule} Refills: 3 Ordered:27-Aug-2017 Adrienne Tirado LPN Start : 12-May-2016 End : 27-Aug-2017 Inactive Vitamin E 6 IU Inactive ZANAFLEX, 4MG (Oral Tablet) 1 Tablet every 8 hours prn for 0 days Quantity: 20 {Tablet} Refills: 0 Ordered:18-Jan-2013 Martha Puckett LPN Start : 18-Oct-2012 End : 18-Jan-2013 Inactive ZITHROMAX Z-NELL, 250MG (Oral Tablet) 1 Tablet TAD for 0 days Quantity: 1 {Package(s)} Refills: 0 Ordered:18-Jan-2013 Martha Puckett LPN Start : 31-Aug-2012 End : 18-Jan-2013 Inactive Ca. Citrate with magnesium 150 mg End : 19-Jul-2018 Discontinued CALCIUM + D, 208-559RM-OFXH (Oral Tablet) 1 qd for 0 days Refills: 0 Ordered:26-Mar-2014 SHANKAR Cleary End : 26-Mar-2014 Discontinued Comments:This order discontinued per [facility]. Calcium 1500 End : 19-Jul-2018 Discontinued CELEXA, 10MG (Oral Tablet) 1 Tablet daily for 0 days Quantity: 90 {Tablet} Refills: 3 Ordered:26-Mar-2014 Reagan Sharp MD Start : 26-Mar-2014 End : 26-Mar-2014 Discontinued CORTISPORIN, 3.5-28878-2 (Otic Solution) 4 Metric Drop tid for 0 days Quantity: 1 {Bottle} Refills: 0 Ordered:18-Dec-2014 Adrienne Tirado LPN Start : 24-Oct-2014 End : 18-Dec-2014 Discontinued Cranberry End : 19-Jul-2018 Discontinued EXTRA STRENGTH PAIN RELIEVER, 120-211-39ST (Oral Tablet) 2 qd prn headaches (250-250-65 MG) End : 18-Dec-2014 Discontinued Extra strenth generic excedrine End : 19-Jul-2018 Discontinued MULTIVITAMINS (Oral Capsule) 1 Capsule qd for 0 days Quantity: 30 {Capsule} Refills: 0 Ordered:18-Dec-2014 Adrienne Tirado LPN Start : 18-Sep-2013 End : 18-Dec-2014 Discontinued NASONEX, 50MCG/ACT (Nasal Suspension) 2 (two) Puff daily for 0 days Quantity: 1 {Bottle} Refills: 0 Ordered:18-Dec-2014 Adrienne Tirado LPN Start : 24-Oct-2014 End : 18-Dec-2014 Discontinued PriLOSEC 10 MG Oral Capsule Delayed Release 1 (one) Capsule DR Capsule DR daily for 90 days Quantity: 90 {Capsule} Refills: 0 Ordered:25-Aug-2016 Adrienne Tirado LPN Start : 25-Aug-2016 End : 27-Aug-2017 Discontinued PriLOSEC 10 MG Oral Capsule Delayed Release 1 (one) Capsule DR Capsule DR daily for 90 days Quantity: 90 {Capsule} Refills: 0 Ordered:25-Aug-2016 Adrienne Tirado LPN Start : 25-Aug-2016 End : 27-Aug-2017 Discontinued Comments:This order discontinued per [facility]. VITAMIN C ER, 1000MG (Oral Tablet Extended Release) 1 qd (1000 MG) End : 18-Dec-2014 Discontinued Vitamin D3 70 2000U End : 19-Jul-2018 Discontinued Allergies and Adverse Reactions Name Dates Details No Known Allergies (Allergy) Onset: 24-Sep-2014 Status: Active No Known Drug Allergies (Allergy) Status: Active Past Medical History Name Dates Details Acute conjunctivitis (H10.30, 372.00) Status: Inactive as of 15-Apr-2018 BMI 29.0-29.9,adult (Z68.29, V85.25) Status: Inactive as of 27-Aug-2017 Breast cancer screening (Z12.39, V76.10) Status: Inactive as of 16-Sep-2015 Bronchitis (J40, 490) Status: Inactive as of 18-Sep-2013 Chest pain (R07.9, 786.59) 29-Jun-2011 Comments: atypical, in hospital and stress negative. not return Status: Inactive as of 18-Sep-2013 Cholelithiasis (K80.20, 574.20) Comments: no signs and symptoms will let know if does Status: Inactive as of 25-Mar-2015 Contact dermatitis due to poison susan (L23.7, 692.6) Status: Inactive as of 18-Sep-2013 Cough (R05, 786.2) Status: Inactive as of 18-Sep-2013 Cystitis (N30.90, 595.9) Comments: Dx by Dr. Newsome - 04/2016 Status: Inactive as of 27-Aug-2017 Elevated blood-pressure reading without diagnosis of hypertension (R03.0, 796.2) Comments: better now Status: Inactive as of 18-Sep-2013 Encounter for immunization (Z23, V03.89) Status: Inactive as of 16-Sep-2015 Encounter for screening, unspecified (Z13.9, V82.9) Status: Inactive as of 26-Mar-2014 Eustachian tube disorder (H69.90, 381.9) Status: Inactive as of 25-Mar-2015 Gallstones (K80.20, 574.20) Status: Inactive as of 15-Apr-2018 HEART MURMUR (R01.1, 785.2) Comments: very slight. no signs and symptoms and not concerned did not hear today Status: Inactive as of 25-Mar-2015 Hematuria (R31.9, 599.7) Status: Inactive as of 18-Sep-2013 Hematuria, unspecified (R31.9, 599.70) Comments: will treat as if kidney stone as had in past Status: Inactive as of 25-Mar-2015 Hypercalcemia (E83.52, 275.42) Status: Inactive as of 19-Jul-2018 Nausea alone (R11.0, 787.02) Status: Inactive as of 18-Sep-2013 Neck pain (M54.2, 723.1) 02-Nov-2011 Comments: left anterior neck not sound like angina ? scalene. will try to rub if come bakc and see if muscle. Status: Inactive as of 26-Mar-2014 Otitis externa (H60.90, 380.10) Status: Inactive as of 25-Mar-2015 Pharyngitis, acute (J02.9, 462) Status: Resolved as of 04-Mar-2010 Right knee pain (M25.561, 719.46) Comments: sound localized only when kneel on right way. willwatch. Status: Inactive as of 16-Sep-2015 Rosacea (L71.9, 695.3) Comments: oracea work wel Status: Inactive as of 25-Mar-2015 Screening for lipid disorders (Z13.220, V77.91) Status: Inactive as of 18-Sep-2013 Sinusitis, acute (J01.90, 461.9) Status: Inactive as of 25-Mar-2015 Stress reaction (F43.0, 308.9) Comments: had alot stress at work back 2010. better now will try off meds. Status: Inactive as of 15-Apr-2018 Tension headache (G44.209, 307.81) Comments: better than was. on celexa. some with starting back to schoool follow up back if worsen and more constant Status: Inactive as of 18-Sep-2013 Throat fullness (R68.89, 784.99) Comments: on left side seen ent and ct sca negative and not change Status: Inactive as of 25-Mar-2015 Tooth pain (K08.89, 525.9) Comments: did bone scan and abnormal in that area. Dr. baptiste thought that bone was discinagrating around root of back tooth causing pain. recommend pull tooth and do bone grafts. pt in past been on fosamax. Status: Inactive as of 16-Sep-2015 Unspecified Diagnosis Status: Inactive as of 18-Sep-2013 UNSPECIFIED VIRAL INFECTION (B34.9, 079.99) Comments: think this what had. could even had aseptic meningitis. getting better. Status: Inactive as of 16-Sep-2015 Urinary frequency (R35.0, 788.41) Status: Inactive as of 25-Mar-2015 Urinary tract infection, site not specified (N39.0, 599.0) Status: Inactive as of 25-Mar-2015 UTI symptoms (R39.9, 788.99) Comments: last cult pos ecoli not sensitive to previous cipro Status: Inactive as of 27-Aug-2017 Vaccine for xkhulxtkpn-kigibws-lbobaszhh with poliomyelitis (Z23, V06.3) Status: Inactive as of 18-Sep-2013 Well woman exam (Z01.419, V72.31) Comments: RACHEL no BSO, 08-23 mammo, colonoscopy 2005 Status: Inactive as of 27-Aug-2017 Wheezing (R06.2, 786.07) Status: Inactive as of 18-Sep-2013 Procedures Procedure Dates Details Appendectomy Completed Bone density 10/26:osteoporosis Completed Colonoscopy, Screening Completed Comments: 08-02-14 Dr. Whyte repeat 10 years Gallbladder Surgery - Laparoscopic Completed Comments: Dr Mo 01/2018 Mammogram 10/26 Completed Right Hand Surgery Completed 21-Aug-2014 Comments: R thumb Salpingectomy; Bilateral Completed Trigger Finger Completed Comments: Dr. Ku Right Middle finger Date Value Details 06-Aug-2018 Chest 1 View (Portable) Result: Comments: See Note; NOTES: [facility] Imaging Services [address] [place] [address] Chest 1 View (Portable) MR#: [id number] Acct: [id number] Name: YARELIS BURROWS Rep #: [id number] : 1955 F 63 From: Maico Lehman MD PCP: Myleen Craig NP Status: REG ER Study: Chest 1 View (Portable) Date of Exam: 08/06/18 Exam# [id number] Ordering Dr: Laurie Garber MD STUDY: X -RAY CHEST REASON FOR EXAM: Female, 63 years old. Chest pain hypertension TECHNIQUE: Single AP portable view of the chest. COMPARISON: Study done 2 days ago. FIND INGS: Scoliosis of the thoracic spine. The lungs are clear and expanded. There is no demonstrated pleural abnormality. Normal size heart. Normal mediastinum and johnson. Normal visualized pulmonary arter ies. Normal visualized aortic arch and descending thoracic aorta. Normal visualized thoracic spine. Normal visualized ribs, clavicles, and shoulders. There is no demonstrated abnormality of the visual ized soft tissue structures of the upper abdomen. RAD/Chest 1 View (Portable) IMPRESSION: Normal x-ray examination of the chest. Electronically Signed: Maico Lehman MD at 17:44 EDT , Service support , CC: Mylene Craig NP; Laurie Garber MD Director Client: Signed 04-Aug-2018 Chest PA and Lateral Result: Comments: See Note; NOTES: [facility] Imaging Services [address] [place] [address] Chest PA and Lateral MR#: [id number] Acct: [id number] Name: YARELIS BURROWS Rep #: [id number] : 1955 F 63 From: Maico Lehman MD PCP: Mylene Craig NP Status: REG CLI Study: Chest PA and Lateral Date of Exam: 08/04/18 Exam# [id number] Ordering Dr: Katarina Bourgeois CRUSHING MACHINE OPERATOR-C STUDY: X-RAY CHEST REASON FOR EXAM: Female, 63 years old. CHEST PRESSURE WHEN TAKING IN A BREATH X 1 WEEK TECHNIQUE: Frontal and lateral view of the chest. COMPARISON: None. FINDINGS: The lungs are clear and expanded. There is no demonstrated pleural abnormality. Normal size heart. Normal mediastinum and johnson. Normal visualized pulmonary arteries. Normal visualized aortic arch and descending thoracic aorta. There are diffuse degenerative changes of the visualized thoracic spine. Normal visualized ribs, clavicles, and shoulders. There is no demonstrated abnormality of the visualized soft tissue structures of the upper abdomen. RAD/Chest PA and Lateral IMPRESSION: There are no acute findings in the chest. Elect ronically Signed: Maico Lehman MD at 20:27 EDT , Service support , CC: Mylene Craig CRUSHING MACHINE OPERATOR; CRUSHING MACHINE OPERATOR-Iram Bourgeois Director Client: Signed 10-Mar-2018 OT D/C Summary Result: Comments: See Note; NOTES: [facility] [address] [place] [address] Fax REHABILITATION SERVICES DIS CHARGE SUMMARY MR#: [id number] Acct: [id number] Name: YARELIS BURROWS Rep #: [id number] : 1955 62 From: Marlene Sexton Referring Dr.: Chayo Ku DO Status: REG RCR Eval Date: D ischarge Date: HP - OT D/C Summary It has been my pleasure to treat YARELIS BURROWS under orders from Chayo Ku DO, for the diagnosis of R MR release for a total of 8 visit(s). She was t o follow up at beginning of January and did not return. She will be d/c'd on this date. Please see the following information for a summary of their discharge status. - Objective Objective/Function: Evelyn surements taken uoon last visit: ROM of R MF are as follows: R MCP 0-69, PIP 0- 100, DIP 3-67; L MCP 0-67, PIP 0-96, 0-65. ROM similar R vs L. Stiffness present but Pt. is able to straighten actively. [facility] assessment completed on date and is as follows; manager oracle 54, 86; lateral R 17, L 15; three jaw R 14, L 13; tip pinch R 10, L 9 . She has progressed from time of inital eval with all measurements . - Goals Patient Goals: Regain Mobility, Regain Strength, Decrease Pain, Return to Work, Decrease Swelling/Stiffness, Improve Fine Motor Skills, Use Hand/Wrist/Arm Normally Again, Be More Independent in ADLS, Resume Former Household Responsibilities (Cooking,Cleaning,Yard, etc.), Resume Hobbies Goal:: Yarelis to increase R manager oracle to that of L manager oracle 2/3 trials 75% if the time to promote increased abil ity to complete ADL/AIDls and b hand manipulation by d/c. Goal:: Yarelis to increase R MF MCP ROM to that of equal value of L nonaffected have 2/3 trials 75% of the time by d/c. Goal:: Vatien to robert ve 0/10 pain consistently in R MF when completing daily fx tasks 4/5 trials 80% of the time by d/c. Goal:: Yarelis to complete daily scar massage as part of HEP to decrease scar tissue and sensitivity of scar 80% of the time by d/c. Goal:: Yarelis to return to (I) in all b hand coordiantion and manipulation tasks needed for work and daily activities, including leisure interests i.g. knitting, 4/5 trials 80% of the time by d/c. Goal:: Yarelis to be (I) to complete HEP 4/5 trials 80% of the time to promote increased strength and tendon glide through A1 joleen to decrease stiffness and promote re turning R MF to PLOF by d/c. - Plan Plan: 1x follow up 2x weeks from now. She will be d/c'd if all is well. She is to return to Dr. Ku if stiffness persists. She has progressed nicely but is st ill worried about stiffness. ROM of R MF vs L MF are similar. Certified Legal Investigator is to continue to progress through use and strengthening protocol through HEP. SHe is to call with questions/concerns. - D/C Informati on If there are questions or concerns regarding this patient's occupational therapy, please fell free to call me at [phone]. Thank you for the referral of this patient. Sincerely, Marlene Calvret rs <Electronically signed by Marlene Sexton > 03/10/18 1402 CC: Mylene Craig CRUSHING MACHINE OPERATOR; Chayo Ku DO KMB Signed 02-Feb-2018 Surgery Visit Report Result: Comments: See Note; NOTES: [facility] [address] [place] [address] OFFICE VISIT Date of Service: 02/01/18 MR#: [id number] Acct: [id number] Name: YARELIS RAMON Toni Rep #: [id number] : 1955 Provider: Jenise Julian PA-C Age/Sex: 62/F Location: [facility] Status: Signed Intake Intake Visit Reasons: f/u paulino 01/25/2018 dp Car Unloader Required: No Is patient in pain?: No Allergies lidocaine Adverse Reaction (Verified 02/01/18 08:53) Itching Medications coenzyme Q10 200 mg capsule 200 mg PO DAILY 10/15/17 [History Confirmed 02/01/18] atorva statin 20 mg tablet 10 mg PO QDAY tab 12/30/17 [History Confirmed 02/01/18] cholecalciferol (vitamin D3) 10,000 unit capsule 10,000 unit PO QDAY 12/30/17 [History Confirmed 02/01/18] Calcium Carbonate [ Calcium] 600 mg PO BID 01/19/18 [History Confirmed 02/01/18] Oxycodone HCl/Acetaminophen [Percocet 5/325] 1 - 2 tab PO Q4H PRN PRN 4 Days #30 tab 01/25/18 [Rx Confirmed 02/01/18] PFSH Medical History Esophageal reflux (Chronic) Hyperlipidemia (Chronic) Surgical History History of appendectomy (Acute) Histo ry of hysterectomy (Acute) History of tonsillectomy (Acute) S/P laparoscopic cholecystectomy (Acute) Trigger finger, right middle finger (Resolved) History of hysterectomy (Inactive) History of tonsille ctomy (Inactive) S/P appendectomy (Inactive) Trigger finger (Inactive) Family History Father CVA (cerebral vascular accident) Hypertension Heart disease Mo ther Hypertension Breast cancer High cholesterol Brother Heart disease Sister Diabetes Aunt Diabetes Social History Smoking Status: Never smoker HPI HPI HPI: YARELIS BURROWS, is a 62 F I am fo llowing for RUQ pain. Dr. Mo performed a laparoscopic cholecystectomy on 01/25/18. Patient tolerated the procedure well. Patient denies nausea, vomiting. She notes appetite has returned to normal. S he notes bowel habits are normal. Pathology demonstrated chronic cholecystitis and cholelithiasis. Exam GI Inspection: normal to inspection, incision (c/d/i. No erythema or infection noted.) Palpat ion: soft Auscultation: normal bowel sounds Assessment AND Plan Problems 1. Calculus of gallbladder with chronic cholecystitis without obstruction K80.10 Plan - Follow-up as needed Coding Level of Care Code Global Post Op Diagnoses Calculus of gallbladder with chronic cholecystitis without obstruction K80.10 02/02/18 1257 <Electronically signed by Jenise Julian PA-C> Date __ Jenise Julian PA-C Cosigner Signature: Date (if applicable) CC: Mylene Craig NP 25-Jan-2018 Operative Report Result: Comments: See Note; NOTES: [facility] Medical Records Department [address] [place] [address] Operative Report 01/25/18 1134 MR#: [id number] Acct: [id number] Name: ANDREW BURROWS Rep #: [id number] : 1955 62 From: Chidi Mo MD PCP: Mylene Craig NP Status: [facility] Y Location: [facility] [place] Problem List (1) Calculus of gallbladder with chronic cholecystitis without ob struction Status: Acute Report of Operation Date of Procedure: 01/25/18 Pre-Operative Diagnosis: k 80.10 calculus of the gallbladder with chronic cholecystitis without obstruction Post-Operative Diagno sis: Same Surgery/Procedure Performed:: 02105 laparoscopic cholecystectomy Type of Anesthesia:: General Anesthesiologist: David Berry Description of Procedure: Patient was brought into the operating r oom and placed in the supine position. Under excellent general anesthetic the abdomen was sterilely prepped and draped in the usual fashion. Local was injected infraumbilically and dissection was vanessa d down to the fascia the fascia was grasped with a Zander varies needle was placed inside the abdomen the abdomen was insufflated to 15 torr a 10/12 trocar was placed without difficulty. Patient was plac ed in the head up and rotated to the left position. A subxiphoid #5 trocar was placed, inferior to this another #5 trocar was placed, and laterally a #5 trocar was placed. All these under direct visuali zation without injury to underlying structures. Patient was placed in the head up and rotated to the left position. Fundus of the gallbladder was grasped retracted in cephalad direction. I dissected out the cystic duct. Base hemoclips proximally and distally and ligated the duct. Identified the cystic artery I pulled the close node down and place hemoclips proximally and distally on the artery and lig ated the artery. I deliver the gallbladder from the gallbladder bed with use of electrocautery I had no spillage of bile or stones. I placed a specimen and specimen bag delivered through the umbilical p ort. I irrigated the right upper quadrant good hemostasis was noted. I remove the trochars under direct visualization good hemostasis was noted. I closed the fascia the umbilical port with a figure-of-e ight stitch of 0 Vicryl. Skin incisions were closed with subcuticular stitches of 4-0 Monocryl. Steri-Strips are applied sterile dressings were applied the patient tolerated the procedure well. - Admit VTE Documentation VTE Present on Admission: No VTE Mechan Device Prophylaxis: SCD's VTE Pharm Prophylaxis ordered?: No Reason prophylaxis not ordered:: Treatment Not Indicated 01/25/18 1548 <E lectronically signed by Chidi Mo MD> Date Chidi Mo MD CC: Mylene Craig NP; Chidi Mo MD Signed 25-Jan-2018 Discharge Instruction Result: Comments: See Note; NOTES: [facility] Medical Records Department [address] [place] [address] Instructions for Home/Discharge Instructions 01/25/18 1133 MR#: [id number] Acct: [id number] Name: YARELIS BURROWS Rep #: [id number] : 1955 62 From: Chidi Mo MD PCP: Mylene Craig NP Status: REG [facility] [place] [facility] Discharge Diet: Light diet - advance as tolerated Discharge Activit y: May Not Drive - for 2-3 days or while taking narcotic pain medications., - - Do not drive, work heavy equipment or sign legal documents for 24 hours. May shower in (days): 1 - with the bandage in nicolás ce. Additional Activity Instructions:: Pain medication may cause nausea. You should typically eat light foods as you take your pain medications. Pain medication may also cause constipation. If this is a problem for you, please discuss with your doctor. Call your doctor if your incision/area has: Continuous Slow Oozing, Sudden Increased Bleeding, Increased Pain/ Swelling, Increased Redness, Foul Smelli ng Discharge Call your doctor if you observe: Fever of 101 or Higher Suture Line Care: Avoid Pulling/Pushing, Avoid Pinching/Bending Additional Dressing/Incision Instructions:: Leave operative bandaids on for 2 days. When you remove dressing, leave Steri-Strips on until your follow- up appointment, or until the Steri-Strips fall off on their own. Allergies/Adverse Reactions: Allergies lidocaine Advers e Reaction (Verified 01/19/18 11:28) Itching Medications to take at Discharge coenzyme Q10 200 mg capsule 200 mg PO DAILY 10/15/17 atorvastatin 20 mg tablet 10 mg PO QDAY tab 12/30/17 cholecalciferol (vitamin D3) 10,000 unit capsule 10,000 unit PO QDAY 12/30/17 Calcium Carbonate [Calcium] 600 mg PO BID 01/19/18 Oxycodone HCl/Acetaminophen [Percocet 5/325] 1 - 2 tab PO Q4H PRN PRN 4 Days #30 tab The following prescriptions were given: Oxycodone HCl/Acetaminophen [Percocet 5/325] 1 - 2 tab PO Q4H PRN PRN 4 Days #30 tab PRN Reason: Pain Primary Care Physician: Mylene Craig [Primary Care Pro vider] - Please Follow Up With: Chidi Mo MD - Please call [phone] to schedule an appointment. When: 7 days after your surgery. 01/25/18 8403 <Electronically signed by Chidi bishop MD> Date Chidi Mo MD CC: Mylene Craig NP 21-Jan-2018 12 Lead Electrocardiogram Result: Comments: See Note; NOTES: [facility] Cardiovascular Services [address] [place] [address] 12 Lead EKG 01/20/18 0837 MR#: [id number] Acct: [id number] Name: YARELIS BURROWS Rep #: [id number] : 1955 62 From: Anthony Ojeda MD Attending Dr: Chidi Mo MD Status: PRE SDC Ordering Dr: Chidi Mo MD Date: 01/20/18 Location: [facility] [place] Sex: F C Admitted: Test Reason : PRE OP Blood Pressure : / mmHG Vent. Rate : 064 BPM Atrial Rate : 064 BPM P-R Int : 130 ms QRS Dur : 092 ms QT Int : 396 ms P-R-T Axes : 013 028 024 degrees QTc Int : 408 ms Normal sinus rhythm Normal ECG Confirmed by ASHLEY PARDO, ANTHONY ([id number]), editorial intern CAITLIN NIELSON ([id number]) on 01/21/2018 11:35:11 AM Referred By: Chidi Mo Confirmed By:ANTHONY OJEDA MD 01/21/18 1135 Date Anthony Ojeda MD CC: Mylene Craig CRUSHING MACHINE OPERATOR; Chidi Mo MD Signed 31-Dec-2017 SCREENING MAMM (CAD), BILAT Result: Comments: See Note; NOTES: [facility] Imaging Services [address] [place] [address] SCREENING MAMM (CAD), BILAT MR#: [id number] Acct: [id number] Name: EMERSON BURROWSYulissa Muñoz Re p #: [id number] : 1955 F 62 From: Fransisco Aaron MD PCP: Mylene Craig NP Status: REG CLI Study: SCREENING MAMM (CAD), BILAT Date of Exam: 12/31/17 Exam# [id number] Ordering Dr: Mylene Craig MAMMOGR APHY - BILATERAL SCREENING 3-D ENIO SYNTHESIS REASON FOR EXAM: Female, 62 years old. Bilateral Screening 3-D tomosynthesis PERTINENT HISTORY: Mother with breast cancer.. TECHNIQUE: 2-D mammograms and 3-D Enio synthesis of the breast (s) were performed. CAD was performed. COMPARISON: 10/29/2016 FINDINGS: The breast composition is heterogeneously dense that can obscure small breast masses. Scattere d benign calcifications are seen. No dense spiculated masses or suspicious microcalcifications are identified. No architectural distortion is identified. There is no skin thickening or retraction. Ther e has been no significant change since the prior study. HPBI/SCREENING MAMM (CAD), BILAT IMPRESSION: No mammographic signs of malignancy. Routine yearly mammograms recommended. ASS ESSMENT CATEGORY: BIRADS Category 2: Benign. A letter regarding these results will be sent to the patient by the facility within 30 days. FOLLOW UP RECOMMENDATION: Yearly follow up mammogram recommende d. (A) Approximately 10% of breast cancers are not detected by mammography. A normal mammogram should not delay biopsy of a clinically suspicious abnormality. Electronically Signed: Mario Barriga at 9:34 EDT , Service support , CC: Mylene Craig NP Director Client: Signed 30-Dec-2017 Surgery Visit Report Result: Comments: See Note; NOTES: [facility] [address] [facility] [address] [place] [address] OFFICE VISIT Date of Service: 12/30/17 MR#: [id number] Acct: [id number] Name: LY MARIKAYARELIS L Rep #: [id number] : 1955 Provider: Chidi Mo MD Age/Sex: 62/F Location: [facility] Status: Signed Intake Vital Signs12/30/17 Height 5 ft 4 in 12/30/17 Weight: 177 lb Intak e Visit Reasons: cholelithiasis Car Unloader Required: No Is patient in pain?: No Allergies No Known Allergies Allergy (Verified 12/30/17 13:23) Medications coenzyme Q10 200 mg capsule 200 mg PO ON CE 10/15/17 [History Confirmed 12/30/17] atorvastatin 20 mg tablet 10 mg PO QDAY tab 12/30/17 [History Confirmed 12/30/17] cholecalciferol (vitamin D3) 10,000 unit capsule 10,000 unit PO QDAY 12/30/17 [ History Confirmed 12/30/17] [facility] Medical History Esophageal reflux (Chronic) Hyperlipidemia (Chronic) Surgical History History of appendectomy (Acute) History of hysterectomy (Acute) History of tonsillectomy (Acute) Trigger finger, right middle finger (Resolved) History of hysterectomy (Inactive) History of tonsillectomy (Inactive) S/P appendectomy (Inactive) Trigger finger (Inactive) Family History Father CVA (cerebral vascular accident) Hype rtension Heart disease Mother Hypertension Breast cancer High cholesterol Brother Heart disease Sister Diabetes Aunt Diabetes Social History Smoking Status: Never smoker HPI HPI HPI: YARELIS HAIRSTON, is a 62 F who presents to the office today for evaluation of cholelithiasis. Patient was seen by her primary care physician and had some routine liver function tests which were elevated. She sub sequently stopped her statin and a gallbladder ultrasound was obtained. This was completed at [facility] on 12/16/2017. This showed a normal distended gallbladder. The gallbladder wall was slightly thickened and measured 3.3 mm. There was negative Rowland sign. There was no pericholecystic fluid. There were multiple echogenic structures within the gallbladder consistent with multiple gall stones. Patient has been having increasing gas and a full feeling after she has been eating and this is been going on for quite some time. In addition the patient has had problems with chronic urinary tract infections. Patient has known that she has had gallstones in the past. She has never thought she had true gallbladder symptoms until this most recent gallbladder ultrasound has never sought out a surgical opinion. ROS General General: No weight change, appetite, fatigue, colon cancer, breast cancer or weakness HEENT HEENT: No difficulty swallowing, eye injury, eye surgery, swollen glands or ho arseness Endo Endocrine: No thyroid disease, diabetes mellitus, thyroid cancer, Hair loss, heat intolerance or cold intolerance Skin Skin: No rash or changing moles Breast Breast: No left breast lump, r ight breast lump, nipple discharge, breast pain, abnormal mammogram, abnormal US or breast enlargement Musc Musculoskeletal: No back problems, arthritis, rheumatoid arthritis, gout or joint pain Cardio Cardiovascular: No murmur, pacemaker, heart disease, atrial fibrillation, high blood pressure, heart attack, heart stent, palpitations, shortness of breat with exertion or chest pain Psych Psychiatric: No depression, anxiety or hearing voices Resp Respiratory: No shortness of breath, Yes sleep apnea, No cough, No COPD, No asthma, No emphysema, No wheezing Gastro Gastrointestinal: No abdominal pain, No nausea or vomiting, No diarrhea, No constipation, No blood in stool, Yes acid reflux, No hemorrhoids, No ulcers, Yes gallbladder problem, No black,tarry stools Oni Hematologic: No blood thinners, No b lood disorders, No bleeding, No anemia, No blood clots Neuro Neurologic: No system reviewed and no additional complaints, except as docu, No as per HPI, No abnormal walking, No abnormal hearing, No abno rmal movements, No abnormal speech, No behavioral changes, No burning sensations, No confusion, No seizure-like activity, No unsteadiness, No dizziness, No localized weakness, No frequent falls, No head ache(s), No lack of coordination, No loss of vision, No memory loss, No numbness, No other visual disturbances, No radiating pain, No restless legs, No sensory deficit, No fainting, No tingling, No trem or(s), No weakness, No other Exam Const General: well developed, no acute distress, well hydrated Orientation: oriented to person, oriented to place, oriented to time [facility] Head: normocephalic, atraum atic Ears: external ears normal Mouth: moist mucous membranes Eyes Sclera: sclerae normal Pupils: normal by confrontation Neck Neck: no lymphadenopathy noted Neck mass: No Thyroid: symmetrical, thyroid normal Chest Chest palpation AND inspection: normal inspection of the chest Breast Palpation: No nipple discharge Resp Effort AND Inspection: normal respiratory effort Auscultation: clear to auscultatio n bilaterally Percussion: percussion normal Cardio Rate: regular rate Rhythm: regular rhythm Heart Sounds: no murmurs GI Palpation: soft, tender, no masses, no hepatosplenomegaly Auscultation: normal sridevi wel sounds Rectal Exam: other Other: Rectal exam deferred. Extrem General: no clubbing, cyanosis or edema, normal to inspection Assessment AND Plan Problems 1. Calculus of gallbladder with chronic cho lecystitis without obstruction K80.10 Plan Reviewed the anatomy with the patient and discussed the procedure: laparoscopic cholecystectomy with possible cholangiograms, possible open. Review risks incl uding but not limited to bleeding, infection, hernia, bile leak, retained gallstones requiring another procedure ERCP- Endoscopic Retrograde Cholangiopancreatography, injury to another organ (bile ducts , common bile duct, small bowel, etc.) and conversion to an open procedure. All questions were answered. Had a long discussion with the patient with regards to the surgery. Despite not having classic symptoms of gallbladder disease I think the mere fact that she has a gallbladder filled with multiple gallstones and vague symptoms of biliary colic I believe it is warranted to remove it. I reviewed wi th her that her biggest risk with not removing it would be gallstone pancreatitis although the incidence of that probably is not significantly high. Coding Level of Care Code Off vis,new,level 3 Diag noses Calculus of gallbladder with chronic cholecystitis without obstruction K80.10 Cholelithiasis location: gallbladder Cholecystitis acuity: chronic 12/30/17 1403 <Electronically signed by Chidi Mo MD> Date Chidi Mo MD Cosigner Signature: Date (if applicable) CC: Mylene Craig NP 16-Dec-2017 Liver Result: Comments: See Note; NOTES: [facility] Imaging Services [address] [place] [address] Liver MR#: [id number] Acct: [id number] Name: YARELIS BURROWS Rep #: [id number] : F 62 From: Armen Slade MD PCP: Mylene Craig NP Status: REG CLI Study: Liver Date of Exam: 12/16/17 Exam# [id number] Ordering Dr: Mylene Craig STUDY: ABDOMINAL ULTRASOUND - RIGHT UPPER QU ADRANT REASON FOR VISIT: Female, 62 years old. Elevated liver enzymes. TECHNIQUE: Ultrasound evaluation of the right upper quadrant was performed with real-time and static miner-scale imaging. TECHNIC AL QUALITY: Adequate. COMPARISON: None. FINDINGS: Liver: The liver measures 14.5 cm. There is normal echogenicity of the liver. The bile ducts are within normal li mits. There is hepatic color flow. The direction of portal flow is hepatopetal. There is no demonstrated mass lesion. Gallbladder: Normal distended gallbladder. The gallbladder wall is slightly thicken ed and measures 3.3 mm. There is a negative sonographic Rowland's sign. There is no pericholecystic fluid. There are multiple echogenic structures within the gallbladder, consistent with multiple gallsto ayla. Common Bile Duct (C.B.D.): The common bile duct measures 2.9 mm. Pancreas: Normal size of the head, body of the pancreas. The tail portion is obscured due to overlying bowel gas. There is normal echogenicity of the pancreas. There is no demonstrated pancreatic mass or cyst. Right Kidney: Normal size of the right kidney. The right kidney measures 12.2 cm x 5.0 cm x 4.1 cm. Normal renal cortex. The right cortex measures 1.0 cm. There is no demonstrated renal mass or cyst. There is no right hydronephrosis. US/Liver IMPRESSION: Multiple ga llstones. Slightly thickened gallbladder wall. Electronically Signed: Armen Slade MD at 14:34 EST Tel [phone], Service support , CC: Mylene Craig NP Director Client: Signed 09-Dec-2017 OT General Evaluation Result: Comments: See Note; NOTES: [facility] Occupational Therapy [facility] [address] [address] [place] [address] Fax REHABILITATION SERVICES INI TIAL EVALUATION MR#: [id number] Acct: [id number] Name: YARELIS BURROWS Rep #: [id number] : 1955 62 From: Marlene Sexton Referring Dr.: Chayo Ku DO Status: REG RCR [facility] Date: SELF PAY INSURANCE Patient's Visit Information YARELIS BURROWS is a 62 year old F, referred to Occupational Therapy by Chayo Ku DO,, with a diagnosis of R MR release. Date of Evaluation: 12/08/17 Occupational Therapist: Marlene Sexton - Subjective Subjective: Pt., delfino Santoyo and noted trigger finger release 2 months. She notes trigger finge r has been issue about year and half prior to surgery Hand 1x cortisone injection. She noted she can do things but not as well as she would like. - Pain Right Hand 0 Pain Intensity Range: 0, 3, 4 - Objective Objective/Observation: Scar closed at MF A1 joleen area. Increased scar tissue formation with palpation. She presents with increased edema in R MF compared to L MF. As well as increased stiff ness and decreased ROM and strength at this time. - ROM MP: MF R -14-67, L 0- 77 PIP: MF R 0-98, L 7-98 DIP: MF 0-68, L 0-61 - Strength Certified Legal Investigator: R 39, L 52 Lateral Pinch: R 7, L 11 Tripod Pinch: R 6, L 8 Tip-to-Tip Pinch: R 6, L 4 - Edema Proximal Phalanx: MF R 7.5 cm, L 6.8 cm - Sensation Sensation Comments: WFL; deneis numbness and tingling. - Hand/Wrist Evaluation Total Score of Pain AND Functiona l Sections: 18 - Goals Goal:: Yarelis to increase R manager oracle to that of L manager oracle 2/3 trials 75% if the time to promote increased ability to complete ADL/AIDls and b hand manipulation by d/c. Goal:: Catheri ne to increase R MF MCP ROM to that of equal value of L nonaffected have 2/3 trials 75% of the time by d/c. Goal:: Fang to have 0/10 pain consistently in R MF when completing daily fx tasks 4/5 tri als 80% of the time by d/c. Goal:: Yarelis to complete daily scar massage as part of HEP to decrease scar tissue and sensitivity of scar 80% of the time by d/c. Goal:: Yarelis to return to (I) in al l b hand coordiantion and manipulation tasks needed for work and daily activities, including leisure interests i.g. knitting, 4/5 trials 80% of the time by d/c. Goal:: Yarelis to be (I) to complete HE P 4/5 trials 80% of the time to promote increased strength and tendon glide through A1 joleen to decrease stiffness and promote returning R MF to PLOF by d/c. - Rehabilitation General Assessment: Monae pichardo delfino for evaluation on this date. She has R MF trigger finger release about 2 months ago and has still had some symptoms over the past two months. SHe is unhappy with progress and notes continue d edema in R MF as well as locking on occassion. She is to complete OT to promote increasing ROM, strength, and general ability to return to all ADL/IADL sincluding leisure interests at PLOF. Rehabilita tion Potential: Good - Anticipated Interventions Anticipated Interventions: A/AAROM/PROM, Strengthening, Edema Control, Scar Care, Massage, Modalities, Joint Protection/Energy Conservation, Dynamic Sit ting Balance, Fine Motor Coord/Miguel A, ADL Training, Caregiver Training, Home Program - Visit Plan Frequency: 2x /Week Duration: 4 Weeks General Plan: Pt., Yarelis, to recieve OT for edema management techniques, decrease scar massage, ROM, strengthening and promoting returnto PLOF. TEXT: Thank you for the opportunity to evaluate your patient. For Medicare and Medicare HMO plans, please review the plan of care and approve it. It will need to be FAXED BACK to us at [phone] for Medicare purposes. Please let me know if there are questions or concerns regarding this plan of care. Physici an Signature: Date: <Electronically signed by Marlene Sexton > 12/09/17 1204 CC: Mylene Craig CRUSHING MACHINE OPERATOR; Chayo Ku DO D KMB Signed For Medicare only, by signing this I certify the plan of care. Physicians Signature Date 02-Dec-2017 Orthopedic Visit Report Result: Comments: See Note; NOTES: [facility] Orthopaedics AND Sports Medicine [address] [place] [address] OFFICE VISIT Date of Service: 12/02/17 MR#: [id number] Acct: [id number] Name: YARELIS BURROWS Toni Rep #: [id number] : 1955 Provider: Chayo Ku DO Age/Sex: 62/F Location: [facility] Status: Signed Intake Intake Visit Reasons: Right hand Is patient in pain?: Y es Pain scale (1-10): 3 Allergies No Known Allergies Allergy (Verified 12/02/17 08:00) Medications atorvastatin 20 mg tablet 20 mg PO QDAY 10/15/17 [History Confirmed 12/02/17] cholecalciferol (vit salgado D3) 2,000 unit capsule 2,000 unit PO ONCE 10/15/17 [History Confirmed 12/02/17] coenzyme Q10 200 mg capsule 200 mg PO ONCE 10/15/17 [History Confirmed 12/02/17] PFSH Medical History (Reviewed @ 08:02 by Patito Olmedo) Hyperlipidemia (Chronic) Surgical History Trigger finger, right middle finger (Resolved) History of hysterectomy ( Inactive) History of tonsillectomy (Inactive) S/P appendectomy (Inactive) Trigger finger (Inactive) Family History Father CVA (cerebral vascular acciden t) Hypertension Heart disease Mother Hypertension Brother Heart disease Social History Smoking Status: Never smoker HPI Right hand: Details: YARELIS BURROWS is a 62 year old F here today s/p r ight middle finger A1 release DOS 10/20/17. She complains of intermittent pain of the middle finger. Denies radiation of pain. No tingling/numbness. She does feel at times the finger feels swollen. She d oes try to do HEP but feels maybe she needs a session of OT. At times when she is using her hand she does have some stiffness of the finger. ROS Const Reports system reviewed and no additional complain ts, except as docu Eyes Reports system reviewed and no additional complaints, except as docu ENT Reports system reviewed and no additional complaints, except as docu Card Reports system reviewed and no additional complaints, except as docu Resp Reports system reviewed and no additional complaints, except as docu GI Reports system reviewed and no additional complaints, except as docu Reports system reviewed and no additional complaints, except as docu Musc Reports joint pain, Reports joint swelling Skin/Breast Reports system reviewed and no additional complaints, except as docu Neuro Yes system re viewed and no additional complaints, except as docu Psych Reports system reviewed and no additional complaints, except as docu Endo Reports system reviewed and no additional complaints, except as docu H ilana/Lymph Reports system reviewed and no additional complaints, except as docu Aller/Immun Reports system reviewed and no additional complaints, except as docu Ortho Exam Right Wrist/Hand Skin/Wound: Yes healed Contralateral Normal: Yes A1 joleen trigger: No Right Wrist: Yes ROM- Extension 0-60, ROM-Flexion 0-80, ROM-Pronation 0-80 and ROM-Supination 0-90 Motor: EPL: 5, FDP-2: 5, 1st Dorsal Interosse ous: 5, APB: 5 Sensation: Radial: I, Ulnar: I, Median: I Assessment AND Plan 1. Trigger middle finger of right hand M65.331 Plan Explained that the joint stiffness and swelling is normal, OA is expect ed, but we will give OT script today and instructed to work on rom at home and use otc nsaids. Follow up as needed or sooner if pain, swelling, numbness or associated symptoms, or concerns develop. All questions answered. Patient in agreement of plan. 2. Stiffness in joint M25.60 3. S/P orthopedic surgery, follow-up exam Z09 Coding Level of Care Code Global Post Op Diagnoses Trigger middle finge r of right hand M65.331 Laterality: right Trigger finger location: middle finger Stiffness in joint M25.60 S/P orthopedic surgery, follow-up exam Z09 12/02/17 0950 <Electronically signed by A bhavana Ku DO> Date Chayo Ku DO Cosigner Signature: Date (if applicable) CC: 16-Nov-2017 Orthopedic Visit Report Result: Comments: See Note; NOTES: [facility] Orthopa[facility]ics AND Sports Medicine [address] [place] [address] OFFICE VISIT Date of Service: 11/11/17 MR#: [id number] Acct: [id number] Name: YARELIS BURROWS Rep #: [id number] : 1955 Provider: Chayo Ku DO Age/Sex: 62/F Location: [facility] Status: Signed Intake Intake Visit Reasons: Trigger finger Is patient in pain ?: Yes Pain scale (1-10): 2 Allergies No Known Allergies Allergy (Verified 11/11/17 08:02) Medications atorvastatin 20 mg tablet 20 mg PO QDAY 10/15/17 [History Confirmed 10/19/17] cholecalciferol (vitamin D3) 2,000 unit capsule 2,000 unit PO ONCE 10/15/17 [History Confirmed 10/19/17] coenzyme Q10 200 mg capsule 200 mg PO ONCE 10/15/17 [History Confirmed 10/19/17] [facility] Medical History (Reviewe d 11/11/17 @ 08:03 by Piotr Lew) Hyperlipidemia (Chronic) Surgical History Trigger finger, right middle finger (Resolved) History of hysterectomy (Inactive) History of tonsillectomy (Inactive) S/P appendectomy (Inactive) Trigger finger (Inactive) Family History Father CVA (cerebral vascular accident) Hypertension Heart disease Mother Hypertension Brot her Heart disease Social History Smoking Status: Never smoker HPI Trigger finger: Details: YARELIS BURROWS is a 62 year old F here today for f/u from right middle finger A1 release 10/20/17. Sh e removed her own sutures and complains of difficulty getting full extension and the pain increases as she uses her fingers. Normal redness at incision site but otherwise healing well. Denies numbness, tingling or other associated symptoms and she states it no longer locks. ROS Const Reports system reviewed and no additional complaints, except as docu Eyes Reports system reviewed and no additional co mplaints, except as docu ENT Reports system reviewed and no additional complaints, except as docu Card Reports system reviewed and no additional complaints, except as docu Resp Reports system reviewed a nd no additional complaints, except as docu GI Reports system reviewed and no additional complaints, except as docu Musc Reports joint swelling, Reports stiffness Skin/Breast Reports system reviewed and no additional complaints, except as docu Neuro Yes system reviewed and no additional complaints, except as docu Psych Reports system reviewed and no additional complaints, except as docu Endo Reports s ystem reviewed and no additional complaints, except as docu Ortho Exam Right Wrist/Hand Date of Surgery: 10/20/17 Skin/Wound: Yes healing, Yes suture/shila removed Right Ankle Skin/Wound: Yes suture /shila removed Assessment AND Plan 1. Trigger middle finger of right hand M65.331 Plan Explained that she was likely lacking full extension from the exterminator termite triggering, that now she will need to w ork on the extension or we can give her OT. She can begin some scar massage with vitamin E. Explained that some flexion is functional. Follow up in three wks or sooner if pain, swelling, numbness or as sociated symptoms, or concerns develop. All questions answered. Patient in agreement of plan. Coding Level of Care Code Global Post Op Diagnoses Trigger middle finger of right hand M65.331 Laterality : right Trigger finger location: middle finger 11/16/17 0918 <Electronically signed by Chayo Ku DO> Date Chayo Ku DO Yaneli Signature: Date (if applicable) CC: 28-Oct-2017 Operative Report Result: Comments: See Note; NOTES: [facility] Medical Records Department [address] [place] [address] Operative Report 10/20/17 0844 MR#: [id number] Acct: [id number] Name: ANDREW BURROWS Rep #: [id number] : 1955 62 From: Chayo Ku DO PCP: Mylene Craig NP Status: [facility] Y Location: [facility] [place] Report of Operation Date of Procedure: 10/20/17 Pre-Operative Diagnosis: righ t middle finger trigger finger Post-Operative Diagnosis: same Surgery/Procedure Performed:: right middle finger a1 joleen release Type of Anesthesia:: Block,Srinivas Anesthesiologist: David Berry Estimated Blood Loss (mL): minimal Fluids Replaced: 600cc lr Description of Procedure: Preoperative note Patient is a 62-year-old female with known triggering of her right in the middle finger. Patient failed conservative treatment. Patient palpable her A1 joleen. Risks benefits and alternatives surgery discussed with patient. Risks including but not limited to blood loss, blood clot, infection, neurovascula r injury, failure procedure, loss of life and loss of limb. Patient is aware like to proceed with right middle finger A1 joleen release. Next operative note Patient seen and examined preoperative hol ding area. Right middle finger was marked. Patient is brought to the operating room placed supine on the operating table. Signing, anesthesia and antibiotics were administered. All history and physical and consent reviewed. All bony possible padded and SCDs placed on her bilateral lower extremity. [place] block was initiated and the right arm was prepped and draped in usual sterile fashion. We marked out our incision for our A1 joleen release. Timeout was performed. We then used forceps to ensure that the Srinivas block was working which it was. We then used a 15 blade to cut through the skin dissected aimee n to the A1 joleen with tenotomies. We then released the tenotomy with a combination of a new fresh 15 blade and tenotomies and then were able to flex and extend the middle finger and brought the tendon s out of the incision and then flexed and extended the finger to ensure that we had released all the A1 joleen which we did. We then irrigated the incision with copious amounts of sterile saline. Incisi on was closed with interrupted 4-0 nylon stitches. Sterile dressings were applied tourniquet was deflated for total working time of 8 minutes. Patient tolerated the procedure well there are no complicat ions. Postoperative note Hospital has pain pills prescription Use hand as tolerated next Keep incision clean and dry Call with concerns This note was generated with [employer] dictation software. It ma y contain incorrect words, spelling, and punctuation that were not noted in checking the note before signing. 10/28/17 1219 <Electronically signed by Chayo Ku DO> Date ___ Chayo Ku DO CC: Mylene Craig NP; Chayo Ku DO Signed 21-Oct-2017 Dexa Bone Density Study (HP) Result: Comments: See Note; NOTES: [facility] Imaging Services [address] [place] [address] Dexa Bone Density Study (HP) MR#: [id number] Acct: [id number] Name: YARELIS BURROWS ep #: [id number] : 1955 F 62 From: Armen Slade MD PCP: Mylene Craig NP Status: REG CLI Study: Dexa Bone Density Study (HP) Date of Exam: 10/21/17 Exam# [id number] Ordering Dr: Mylene Craig STUDY: DUAL ENERGY X-RAY ABSORPTIOMETRY / DXA REASON FOR EXAM: Female, 62 years old. The patient is postmenopausal. No loss of height. TECHNIQUE: Bone Mineral Density (BMD) measurements of lumbar sp ine and bilateral hips were obtained. COMPARISON: Comparison is made with prior study dated October 15, 2015. FINDINGS: Lumbar Spine (L1-L4): g/cm2 (0.844) / T-scor e (-2.8) / Z-score (-1.4) Findings are suggestive of osteoporosis with a high fracture risk. Left Femur Total: g/cm2 (0.919) / T-score (-0.7) / Z-score (0.4) Left Femoral Neck: g/cm2 (0.860) / T-score (-1.3) / Z-score (0.1) Right Femur Total: g/cm2 (0.906) / T-score (-0.8) / Z-score (0.3) Right Femoral Neck: g/cm2 (0.856) / T-score (-1.3) / Z-score (0.1) The T-Scores on the most recent prior examina tion were: Lumbar Spine (L1-L4): There has been worsening of bone density since the previous examination. Left Femur Total: which represents an improvement of 1.5%. . Right Femur Total: which represen ts an improvement of 1.8%. 0003 HPBD/Dexa Bone Density Study (HP) IMPRESSION: The patient is considered osteoporotic at the level of the lumbar spine as outlined below according to World Jeff Organization (WHO) criteria with a high fracture risk. There has been improvement of bone density since the previous examination. Reference Information: The T-score is the number of standard deviations above or below the standard which is normal for young adults at their peak bone mineral density. The World Health Organiz ation (WHO) interprets the T-scores as follows: Above -1 Normal bone density Between -1 and -2.5 Osteopenia Equal to / or below -2.5 Osteoporosis As a practical clinical guideline, osteopenia may be g raded as follows: Mild -1 through -1.5 Moderate -1.6 through -2.0 Severe -2.1 through -2.4 The Z-score is the number of standard deviations above or below age-matched controls. A Z-score of less than - 1.5 would be considered abnormal. References: 1. NIH Osteoporosis and Related Bone Diseases http://www.osteo.org 2. International Society for Clinical Densitometry http://www.iscd.org 3. National Osteo porosis Foundation http://www.nof.org Electronically Signed: Armen Slade MD at 12:13 EST Tel [phone], Service support , CC: Mylene Craig NP Director Client: Signed 20-Oct-2017 Discharge Instruction Result: Comments: See Note; NOTES: [facility] Medical Records Department [address] [place] [address] Instructions for Home/Discharge Instructions 10/20/17 0843 MR#: [id number] Acct: [id number] Name: YARELIS BURROWS Rep #: [id number] : 1955 62 From: Chayo Ku DO PCP: Mylene Craig NP Status: REG [facility] [place] Discharge Diet: No Restrictions - keep dressing clean, dry and int act; will remove stitches at 2 week postop visit, use hand as tolerated, if incision gets wet remove and apply new clean dressing Discharge Activity: May Not Drive May shower in (days): 1 Ice area for ( Minutes): 20 - Every hour while awake. Weight Bearing Status: Weight bearing as tolerated Keep extremity elevated above heart level: Operative Extremity Call your doctor if your incision/area has: Ayaka nuous Slow Oozing, Sudden Increased Bleeding, Increased Pain/ Swelling, Increased Redness, Foul Smelling Discharge Call your doctor if you observe: Fever of 101 or Higher, Coldness, Increased Pain, Numb ness or Tingling, Change in Color, Calf discomfort Allergies/Adverse Reactions: Allergies No Known Allergies Allergy (Verified 10/20/17 08:18) Medications to take at Discharge atorvastatin 20 mg ta blet 20 mg PO QDAY 10/15/17 cholecalciferol (vitamin D3) 2,000 unit capsule 2,000 unit PO ONCE 10/15/17 coenzyme Q10 200 mg capsule 200 mg PO ONCE 10/15/17 Acetaminophen/Codeine #3 [Tylenol #3 Tablet] 1 - 2 tablet PO Q6H PRN PRN #30 tablet 10/20/17 The following prescriptions were given: Acetaminophen/Codeine #3 [Tylenol #3 Tablet] 1 - 2 tablet PO Q6H PRN PRN #30 tablet PRN Reason: Pain Primary Care Physician: Mylene Craig [Primary Care Provider] - Please Follow Up With: Chayo Ku DO - [phone] 10/20/17 0844 <Electronically signed by Chayo Ku DO> Date __ Chayo Ku DO CC: Mylene Craig CRUSHING MACHINE OPERATOR 19-Oct-2017 Orthopedic Visit Report Result: Comments: See Note; NOTES: [facility] [address] [place] [address] OFFICE VISIT Date of Service: 10/15/17 MR#: [id number] Acct: [id number] Name: YARELIS BURROWS Rep #: [id number] : 1955 Provider: Chayo Ku DO Age/Sex: 62/F Location: [facility] Status: Signed Intake Vital Signs10/15/17 Height 5 ft 4 in 10/15/17 Weight: 16 5 lb 10/15/17 Body Mass Index (BMI) 28.3 Intake Visit Reasons: right middle finger Is patient in pain?: Yes Pain scale (1-10): 7 Allergies lidocaine Adverse Reaction (Verified 10/19/17 09:39) Itching Medications atorvastatin 20 mg tablet 20 mg PO QDAY 10/15/17 [History Confirmed 10/19/17] cholecalciferol (vitamin D3) 2,000 unit capsule 2,000 unit PO ONCE 10/15/17 [History Confirmed 10/19/17] siva nzyme Q10 200 mg capsule 200 mg PO ONCE 10/15/17 [History Confirmed 10/19/17] [facility] Medical History Esophageal reflux (Chronic) Hyperlipidemia (Chronic ) Surgical History History of hysterectomy (Inactive) History of tonsillectomy (Inactive) S/P appendectomy (Inactive) Trigger finger (Inactive) Famil y History Father CVA (cerebral vascular accident) Hypertension Heart disease Mother Hypertension Brother Heart disease Social History Smoking Status: Ne alejandro smoker HPI right middle finger: Details: YARELIS BURROWS is a 62 year old F here today for right middle finger. She complains of intermittent pain in the entire finger. She denies radiation of pain. No swelling. No tingling/numbness. She states after she tries to grasp objects or writes the release of the fingers is when the catching and pain occurs. She does not take anything for pain. No prior injection in right finger. She did have x-ray back in 09/2016 of right hand which was negative. ROS Const Reports system reviewed and no additional complaints, except as docu Eyes Reports system reviewed and no additional complaints, except as docu ENT Reports system reviewed and no additional complaints, except as docu Card Reports system reviewed and no additional complaints, except as docu R leah Reports system reviewed and no additional complaints, except as docu GI Reports system reviewed and no additional complaints, except as docu Reports system reviewed and no additional complaints, except as docu Musc Reports joint pain Skin/Breast Reports system reviewed and no additional complaints, except as docu Neuro Yes system reviewed and no additional complaints, except as docu Psych Repor ts system reviewed and no additional complaints, except as docu Endo Reports system reviewed and no additional complaints, except as docu Oni/Lymph Reports system reviewed and no additional complaints, except as docu Aller/Immun Reports system reviewed and no additional complaints, except as docu Ortho Exam Right Wrist/Hand Skin/Wound: Yes CDI Contralateral Normal: No A1 joleen trigger: Yes (middle finger) Right Wrist: Yes ROM-Extension 0-60, ROM-Flexion 0-80, ROM-Pronation 0-80 and ROM-Supination 0-90 Motor: EPL: 5, FDP-2: 5, 1st Dorsal Interosseous: 5, APB: 5 Sensation: Radial: I, Ulnar: I, Med stella: I Assessment AND Plan 1. Trigger finger, right middle finger M65.331 Plan Explained the joleen release to stop the triggering. Reviewed the pre- operative plans with the patient. Risks and benefi ts of the procedure were fully explained, including but not limited to infection, neurovascular injury, continued pain, arthritis, stiffness, need for further surgery, re-injury, DVT, PE, general risks of anesthesia, and loss of limb or life. The patient understands all the risks and does wish to proceed with written consent. Follow up post op or sooner if pain, swelling, numbness or associated sympt oms, or concerns develop. All questions answered. Patient in agreement of plan. 10/19/17 0952 <Electronically signed by Chayo GODDARD Date Chayo Ku DO Cosigner Signature: Date (if applicable) CC: 29-Oct-2016 SCREENING MAMM (CAD), BILAT Result: Comments: See Note; NOTES: [facility] Imaging Services [address] [place] [address] Verdana 4d SCREENING MAMM (CAD), BILAT MR#: [id number] Acct: [id number] Name: ANDREW BURROWS Rep #: [id number] : 1955 F 61 From: Armen Slade MD PCP: Mylene Craig Status: REG CLI Study: SCREENING MAMM (CAD), BILAT Date of Exam: 10/29/16 Exam# [id number] Ordering Dr: Manjit Musa MAMMOGRAPHY - BILATERAL SCREENING REASON FOR EXAM: Female, 61 years old. Routine annual screening examination. PERTINENT HISTORY: Mother with breast cancer. TECHNIQUE: Digital bilateral edmund st enio (3D mammographic acquisition) in the CC and MLO projections. 2-D mediolateral oblique (MLO) and craniocaudad (CC) views of both breasts were obtained. CAD: Full Field Digital Mammography with Co mputer Added Detection was performed. COMPARISON: Comparison is made with prior study dated October 15, 2015 and September 26, 2014. FINDINGS: Breast Composition: The breasts are heterogeneously dense, which may obscure small masses. There are no dominant masses or suspicious calcifications. No other significant abnormalities are identified. There has been no sign ificant change since the prior study. HPBI/SCREENING MAMM (CAD), BILAT IMPRESSION: Stable bilateral screening mammogram. Yearly follow-up mammogr am recommended. (A) ASSESSMENT CATEGORY: BIRADS Category 1: Negative. A letter regarding these results will be sent to the patient by the facility within 30 days. Approximately 10% of breast cancers are not detected by mammography. A normal mammogram should not delay biopsy of a clinically suspicious abnormality. [id number] Electronically Signed: Armen Slade MD at 8:12 EST Tel [phone], Service support [phone], CC: Mylene Musa Director Client: Signed 17-Sep-2016 Finger(s) Min 2 Views Result: Comments: See Note; NOTES: [facility] Imaging Services [address] [place] [address] Verreagan 4d Finger(s) Min 2 Views MR#: [id number] Acct: [id number] Name: YARELIS BURROWS Rep #: [id number] : 1955 F 61 From: Donal Austin MD PCP: Reagan Sharp MD Status: REG CLI Study: Finger(s) Min 2 Views Date of Exam: 09/17/16 Exam# [id number] Ordering Dr: Chayo Ku DO STUDY: X-RAY - LEFT HAND, ATTENTION FIRST FINGER REASON FOR EXAM: Female, 61 years old. Thumb pain. TECHNIQUE: 3 view(s) of the finger were obtained. COMPARISON: None. FINDINGS: There is mild arthrosis of the first carpometacarpal articulation. Normal metacarpal head. There is mild degenerative arthrosis of the metacarpophalangeal joint. Normal proximal phalan x. Normal middle phalanx. Normal distal phalanx. Normal distal interphalangeal joint. RAD/Finger(s) Min 2 Views IMPRESSION: Mild arthrosis of t he first carpometacarpal joint. Electronically Signed: Donal Austin MD at 11:37 EST , Service support [phone], CC: Chayo Ku DO; Reagan Sharp MD Director Client: Signed 17-Sep-2016 Hand Min 3 Views Result: Comments: See Note; NOTES: [facility] Imaging Services [address] [place] [address] Verda 4d Hand Min 3 Views MR#: [id number] Acct: [id number] Name: YARELIS BURROWS Amber p #: [id number] : 1955 F 61 From: Donal Austin MD PCP: Reagan Sharp MD Status: REG CLI Study: Hand Min 3 Views Date of Exam: 09/17/16 Exam# [id number] Ordering Dr: Chayo Ku DO STUDY: X- RAY - RIGHT HAND REASON FOR EXAM: Female, 61 years old. Trigger finger of the third digit. TECHNIQUE: 3 view(s) of the hand. COMPARISON: None. FINDINGS: Normal vi sualized carpal bones and carpal articulations. Normal carpometacarpal articulation of the thumb. Normal second through fifth carpometacarpal joints. Normal metacarpi. Normal metacarpophalangeal (MCP) joints. Normal visualized phalanges and interphalangeal joints. The soft tissue structures are unremarkable. RAD/Hand Min 3 Views IMPRESSION: N ormal x-ray examination of the hand. Electronically Signed: Donal Austin MD at 11:36 EST , Service support [phone], CC: Chayo Ku DO; Reagan Sharp MD Director Client: Signed 26-Nov-2015 Abdomen/Pelvis without Cont Result: Comments: See Note; NOTES: [facility] Imaging Services [address] [place] [address] Verdana 4d Abdomen/Pelvis without Cont MR#: [id number] Acct: [id number] Name: YARELIS BURROWS Rep #: [id number] : 1955 F 60 From: Armen Slade MD PCP: Reagan Sharp MD Status: REG CLI Study: Abdomen/Pelvis without Cont Date of Exam: 11/26/15 Exam# [id number]: Jennifre Spencer DO STUDY: CT ABDOMEN AND PELVIS WITHOUT CONTRAST REASON FOR EXAM: Female, 60 years old. Hematuria. Recent passage of a left ureteral calculus. RADIATION DOSAGE (If [place]ira pplied By Facility): CTDIvol = ( 9.16 ) mGy, DLP = ( 441.43 ) mGycm TECHNIQUE: Transaxial images were obtained from the dome of the diaphragm to the symphysis pubis without oral contrast, and withou t intravenous contrast. Sagittal and coronal images were reconstructed. COMPARISON: Comparison is made with prior study dated January 18, 2013. FINDINGS: Stable mild increased linear markings at the lung bases suggestive of mild basilar scarring. The visualized portions of the heart are within normal limits. Normal liver. There are multiple gallstones. Norm al spleen. Normal pancreas. Normal bilateral adrenal glands. Multiple calculi are also seen in the lower pole of the right kidney. The largest measures 6.6 mm. Multiple calculi are seen in the lef t kidney more prominent in the lower pole. The largest measures 1.2 cm. Normal visualized stomach. Normal small intestine. Normal colon. The appendix is visualized and appears normal. There is sca ttered atherosclerotic calcification of the abdominal aorta, without a demonstrated aneurysm. Normal inferior vena cava. There is borderline retroperitoneal lymphadenopathy with enlarged nodes no grea ter than 10mm in the short axis diameter. Normal urinary bladder. There is absence of the uterus consistent with a prior hysterectomy. There is a small umbilical hernia containing fat. Normal osse ous structures. IMPRESSION: Bilateral nonobstructive intrarenal calculi more prominent in the lower poles of both kidneys. Gallstones. Electronically Signed : Armen Slade MD at 9:10 EST Tel [phone], Service support [phone], CC: Reagan Sharp MD; Jennifer Spencer DO Director Client: Signed 15-Oct-2015 Bilat Scrn Digital AND CAD Result: Comments: See Note; NOTES: [facility] Imaging Services [address] [place] [address] Verdana 4d Bilat Scrn Digital AND CAD MR#: [id number] Acct: [id number] Name: YARELIS BURROWS Rep #: [id number] : 1955 F 60 From: Armen Slade MD PCP: Reagan Sharp MD Status: REG CLI Study: Bilat Scrn Digital AND CAD Date of Exam: 10/15/15 Exam# [id number] Ordering Dr: Reagan Sharp MD MAMMOGRAPHY - BILATERAL SCREENING REASON FOR EXAM: Female, 60 years old. Routine annual screening examination. PERTINENT HISTORY: Mother with breast cancer. TECH NIQUE: Digital examination. Mediolateral oblique (MLO) and craniocaudad (CC) views of both breasts were obtained. CAD: CAD was performed on this study. COMPARISON: Comparison is made with prior stud y dated September 26, 2014 and August 29, 2013. FINDINGS: Breast Composition: The breasts are heterogeneously dense, which may obscure small masses. There ar e no dominant masses or suspicious calcifications. No other significant abnormalities are identified. There has been no significant change since the prior study. IMPRESSION: Stable bilateral screening mammogram. Yearly follow-up recommended. (A) ASSESSMENT CATEGORY: BIRADS Category 1: Negative. A letter regarding these results will be sent to the patient by the facility within 30 days. Approximately 10% of breast cancers are not detected by mammography. A normal mammogram should not delay biopsy of a clinically s uspicious abnormality. [id number] Electronically Signed: Armen Slaed MD at 7:46 EST Tel [phone], Service support [phone], CC: Reagan Sharp MD Director Client: Signed 15-Oct-2015 Dexa Bone Density Study (HP) Result: Comments: See Note; NOTES: [facility] Imaging Services [address] [place] [address] Verdana 4d Dexa Bone Density Study (HP) MR#: [id number] Acct: [id number] Name : YARELIS BURROWS Rep #: [id number] : 1955 F 60 From: Armen Slade MD PCP: Reagan Sharp MD Status: REG CLI Study: Dexa Bone Density Study (HP) Date of Exam: 10/15/15 Exam# [id number]: Reagan Sharp MD STUDY: DUAL ENERGY X-RAY ABSORPTIOMETRY / DXA REASON FOR EXAM: Female, 60 years old. The patient is postmenopausal. TECHNIQUE: Bone Mineral Density (BMD) measur ements of lumbar spine and bilateral hips were obtained. COMPARISON: Comparison is made with prior study dated August 29, 2013. FINDINGS: Lumbar Spine (L1-L 4): g/cm2 (0.855) / T-score (-2.7) / Z-score (-1.4) Findings are suggestive of osteoporosis with a high fracture risk. Left Femur Total: g/cm2 (0.905) / T- score (-0.8) / Z-score (0.2) Left Femoral N shreya: g/cm2 (0.833) / T-score (-1.5) / Z-score (-0.2) Right Femur Total: g/cm2 (0.890) / T-score (-0.9) / Z-score (0.0) Right Femoral Neck: g/cm2 (0.862) / T-score (-1.3) / Z-score (0.0) The T-Scores on the most recent prior examination were: Lumbar Spine (L1-L4): There has been worsening of bone density since the previous examination. Left Femur Total: which represents a worsening of 1.3%. R ight Femur Total: which represents a worsening of 3.1%. IMPRESSION: The patient is considered osteoporotic at the level of the lumbar spine as outlined below acc ording to World Jeff Organization (WHO) criteria with a high fracture risk. There has been worsening of bone density since the previous examination. Reference Information: The T-score is the number of standard deviations above or below the standard which is normal for young adults at their peak bone mineral density. The World Health Organization (WHO) inte rprets the T-scores as follows: Above -1 Normal bone density Between -1 and -2.5 Osteopenia Equal to / or below -2.5 Osteoporosis As a practical clinical guideline, osteopenia may be graded as fo llows: Mild -1 through -1.5 Moderate -1.6 through -2.0 Severe -2.1 through -2.4 The Z-score is the number of standard deviations above or below age- matched controls. A Z-score of less than -1.5 wo uld be considered abnormal. References: 1. NIH Osteoporosis and Related Bone Diseases http://www.osteo.org 2. International Society for Clinical Densitometry http://www.iscd.org 3. National Osteopo rosis Foundation http://www.nof.org Electronically Signed: Armen Slade MD at 15:58 EST Tel [phone], Service support [phone], CC: Reagan Sharp MD Director Client: Signed 20-May-2015 Gallium ScanWB Tumor/SingleDay Result: Comments: See Note; NOTES: [facility] Imaging Services [address] [place] [address] Nuclear Medicine Report MR#: [id number] Acct: [id number] Name: YARELIS BURROWS Rep #: [id number] : 1955 F 59 From: Karlos Landers DO PCP: Reagan Sharp MD Status: REG CLI Study: Gallium ScanWB Tumor/SingleDay Date of Exam: 05/20/15 Exam# [id number] Ordering Dr: Reagan Sharp MD CLINICAL: 59-year-old female with 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 LIMITED GALLIUM 67 CITRATE SCINTIGRAPHY COMPARISON: Radionuclide bone scintigraphy study dated 04/03/15 FI NDINGS: Following the intravenous administration of 8.5 mCi of Gallium 67 citrate, limited acquisitions of the anterior, posterior and bilateral-lateral calvarium obtained at 48 hours post radiopharm aceutical administration reveal: 1. Mild increased tracer concentration is demonstrated in the left mandible corresponding to uptake defined bone scintigraphy dated 04/03/15. The intensity of uptak e on the gallium examination is less than that defined on bone scintigraphy in the analogous location. 2. Physiologic distribution of the radiopharmaceutical appears evident in the region of the camilla ateral lacrimal glands and nasopharynx. IMPRESSION: 1. NEGATIVE LIMITED GALLIUM 67 CITRATE IMAGING EXAMINATION. 2. The subtle increase in radiopharmaceutical concentration identified in the left m andible is of lesser intensity and correlates with uptake described on bone scintigraphy dated 04/03/15, consistent with a T2 pattern. This is associated with a low post test probability (R 13%) of a ctive infection. (Tumeh et al, Radiology 158: 685, 1986). Electronically Signed: Karlos Landers DO at 21:27 EDT Tel [phone], Service support [phone], CC: Reagan Sharp MD Director Client: Signed 08-Apr-2015 Echocardiogram Complete Result: Comments: See Note; NOTES: [facility] Cardiovascular Services [address] [place] [address] Echo Complete 04/08/15 1408 MR#: [id number] Acct: [id number] Name: YARELIS BURROWS Rep #: [id number] : 1955 59 From: Anthony Ojeda MD Attending Dr: Reagan Sharp MD Status: REG CLI Ordering Dr: Reagan Sharp MD Date: 04/08/15 Location: [facility] Sex: F C Admitted: Procedure This was a 2D Doppler, Color Flow transthoracic echocardiogram. Exam performed in department. Left Ventricle Normal LV size. Left ventricular systolic function is normal. The estimated e jection fraction is 65 %. No regional wall motion abnormalities noted. Right Ventricle Normal RV size. Normal systolic function. Atria Normal left atrium. Normal right atrium. Mitral Valve No rmal mitral valve. Mild (1+) eccentric mitral valve insufficiency. Tricuspid Valve Normal tricuspid valve. Mild (1+) tricuspid valve insufficiency. Pulmonary artery systolic pressure is 28 mmHg. Aortic Valve Normal aortic valve. Trisinus/trileaflet aortic valve. Mild (1+) aortic valve insufficiency. Pulmonic Valve Normal pulmonic valve. Great Vessels Normal aortic root. The pulmonary art bobby is normal size. Normal inferior vena cava. Pericardium/Pleural No pericardial effusion. MMode/2D Measurements AND Calculations LVIDd: 4.6 cm IVSd: 1.0 cm Ao root diam: 2.5 cm LAV(MOD-bp): 46.4 ml LVIDs: 2.5 cm LVPWd: 0.93 cm Ao root area: 4.8 cm2 LAV(MOD-bp) Indexed: 27.2 ml /m2 RVDd: 3.0 cm FS: 45.9 % LA dimension: 3.7 cm LAV(MOD-sp2): 46.4 ml LAV(MOD-sp4): 42.0 ml LA A4 area: 16.6 cm2 RA A4 area: 14.5 cm2 Doppler Measurements AND Calculations MV E max zulema: 83.7 cm/sec Lat Peak E' Zulema: Med Peak E' Zulema: Ao V2 max: MV A max zulema: 65.4 cm/sec 15.4 cm/sec 7.9 cm/sec 156.2 cm/sec MV E/A: 1.3 Ao max P.8 mmHg AI max zulema: 420.7 cm/sec LV V1 max: 146.4 cm/sec PA V2 max: 113.5 cm/sec TR max zulema: AI max P.8 mmHg LV V1 max P.6 mmHg PA max P.2 mmHg 248.6 cm/sec AI dec slope: TR max P.8 mmHg 16 7.8 cm/sec2 AI P1/2t: 734.5 msec E/E' lat: 5.4 E/E' med: 10.6 Interpretation Summary Normal LV size. Left ventr icular systolic function is normal. The estimated ejection fraction is 65 %. Mild (1+) aortic valve insufficiency. Mild (1+) tricuspid valve insufficiency. Ordering Physician: Reagan Sharp Performed By: Delaney Wyatt, NARDA, RVT 04/08/15 1543 Date Anthony Ojeda MD CC: Reagan Sharp MD Date Dictated: 04/08/15 1408 Date Transcribed: 04/08/15 1543 Director Client: Signed 03-Apr-2015 Bone Scan Whole Body Result: Comments: See Note; NOTES: [facility] Imaging Services [address] [place] [address] Nuclear Medicine Report MR#: [id number] Acct: [id number] Name: YARELIS BURROWS Rep #: [id number] : 1955 F 59 From: Karlos Landers DO PCP: Reagan Sharp MD Status: REG CLI Study: Bone Scan Whole Body Date of Exam: 04/03/15 Exam# [id number] Ordering Dr: Reagan Sharp MD CLINICAL: 59-year-old female with reported history of left mandibular pain. WHOLE BODY Tc MDP RADIONUCLIDE BONE SCINTIGRAPHY COMPARISON: None available FINDINGS: Following the intravenous ad ministration of 25.2 mCi of Tc MDP, whole body bone images reveal: 1. Increased radiopharmaceutical concentration is demonstrated in the bilateral mandible and maxilla, the inter-orbital aspect of t he skull. 2. Enhanced tracer concentration is defined in the sternoclavicular compartments of both shoulders, the acromioclavicular compartment of the right shoulder, bilateral knee articulations, ri ght-left forefoot, the right elbow. 3. The remaining skeletal structures are scintigraphically unremarkable with bilateral renal images and urinary bladder activity identified. There is prominent in ferior pole calyceal collecting system activity noted in the right-left renal units. IMPRESSION: 1. The increase in radiopharmaceutical concentration identified in the bilateral maxilla and mandibl e, the inter-orbital aspect of the skull is most consistent with a component of periostitis and/or periodontal disease. An infectious etiology is a diagnostic consideration the left mandibular region , correlation with a labeled leukocyte imaging is recommended. 2. Degenerative arthrosis is otherwise noted in the bilateral shoulders, right-left knees, forefoot bilaterally and right elbow. Elect ronically Signed: Karlos Landers DO at 8:10 EDT Tel [phone], Service support [phone], CC: Reagan Sharp MD Director Client: Signed 26-Sep-2014 Bilat Scrn Digital AND CAD Result: Comments: See Note; NOTES: [facility] Imaging Services [address] [place] [address] Breast Imaging Report MR#: [id number] Acct: [id number] Name: YARELIS BURROWS p #: [id number] : 1955 F 59 From: Armen Slade MD PCP: Reagan Sharp MD Status: REG CLI Study: Bilat Scrn Digital AND CAD Date of Exam: 09/26/14 Exam# [id number] Ordering Dr: Luis Sharp MD MAMMOGRAPHY - BILATERAL SCREENING REASON FOR EXAM: Female, 59 years old. Routine annual screening examination. PERTINENT HISTORY: Mother with breast cancer. TECHNIQUE: Digital examinat ion. Mediolateral oblique (MLO) and craniocaudad (CC) views of both breasts were obtained. CAD: CAD was performed on this study. COMPARISON: Comparison is made with prior study dated August 29 and August 25, 2012. FINDINGS: Breast Composition: The breasts are heterogeneously dense, which may obscure small masses. There are no dominant masses or suspicious calcifications. No other significant abnormalities are identified. There has been no significant change since the prior study. IMPRESSION: Stable b ilateral screening mammogram. Yearly follow-up recommended. (A) ASSESSMENT CATEGORY: BIRADS Category 2: Benign. A letter regarding these results will be sent to the patient by the facility within 30 days. Approximately 10% of breast cancers are not detected by mammography. A normal mammogram should not delay biopsy of a clinically suspicious abnormality. Electronically Signed: Armen Slade MD at 7:28 EST Tel [phone], Service support [phone], CC: Reagan Sharp MD Director Client: Signed 05-Apr-2014 Kidney and Bladder Result: Comments: See Note; NOTES: [facility] Imaging Services [address] [place] [address] Ultrasound Report MR#: [id number] Acct: [id number] Name: YARELIS BURROWS Rep #: [id number] : 1955 F 58 From: Justyn Neville PCP: Reagan Sharp MD Status: REG CLI Study: Kidney and Bladder Date of Exam: 04/05/14 Exam# [id number] Ordering Dr: Reagan Sharp MD STUDY: R ENAL ULTRASOUND - COMPLETE REASON FOR EXAM: Female, 58 years old. Hematuria. TECHNIQUE: Ultrasound evaluation of the kidneys was performed with real-time and static denney-scale imaging. COMPARISON : CT abdomen and pelvis January 18, 2013. FINDINGS: RIGHT KIDNEY: Normal location of the right kidney, which is normal in size. The right kidney measures 12.8 x 4 .6 x 4.3 cm. There is a normal cortex of the right kidney. The renal cortex measures 1.2 cm. There is no right renal mass or cyst. Multiple renal calculi the largest measuring 1.1 cm greatest dimensi on. No hydronephrosis. DISTAL RIGHT URETER: There is non-visualization of the distal right ureter. There is no demonstrated right ureterovesical junction calculus. There is no visualized right ureter al jet. LEFT KIDNEY: Normal location of the left kidney, which is normal in size. The left kidney measures 12.1 x 4.4 x 5.5 cm cm. There is a normal cortex of the left kidney. The renal cortex measu res 1.4 cm. There is no left renal mass or cyst. Multiple left renal calculi largest measuring 1 cm in greatest dimension. No hydronephrosis. Extrarenal pelvis. DISTAL LEFT URETER: There is non-visua lization of the distal left ureter. There is no demonstrated left ureterovesical junction calculus. There is no visualized left ureteral jet. BLADDER: The distended urinary bladder has a volume of 3 85 ml. Images of the bladder are unremarkable. IMPRESSION: Bilateral nonobstructing renal calculi. Normal bladder. Electronically Signed: Justyn Neville MD at 2:00 EDT Tel , Service support [phone], CC: Reagan Sharp MD Director Client: Signed 21-Mar-2014 Abdomen Single View Result: Comments: See Note; NOTES: [facility] Imaging Services [address] [place] [address] Radiology Report MR#: [id number] Acct: [id number] Name: YARELIS BURROWS Rep #: [id number] : 1955 F 58 From: Armen Slade MD PCP: Status: REG CLI Study: Abdomen Single View Date of Exam: 03/21/14 Exam# [id number] Ordering Dr: Mylene Craig STUDY: X-RAY - ABDOMEN /PELVIS REASON FOR EXAM: Female, 58 years old. Left lower back pain and hematuria. TECHNIQUE: Single AP view of the abdomen / pelvis. COMPARISON: Comparison is made with prior study dated July 31, 2013. FINDINGS: There is a moderate amount of colonic fecal material. Rounded calcifications are seen in the right upper quadrant in keeping with choleli thiasis. Multiple small rounded calcifications are seen in the left midabdomen overlying the lower pole of the left kidney. These are unchanged. Several small calcifications are also seen overlying th e inferior pole of the right kidney. These most likely represent bilateral intrarenal calculi. There are calcified phleboliths in the pelvis. Minimal levoscoliosis. ___ IMPRESSION: Stable calcifications overlying both kidneys. Cholelithiasis. Electronically Signed: Armen Slade MD at 12:51 EDT Tel [phone], Service support [phone], RAD/Abdomen Single View IMPRESSION: Stable calcifications overlying both kidneys. Cholelithiasis. Electronically Signed: Armen Slade MD at 12:51 EDT Tel [phone], Service support [phone], CC: Mylene Craig Director Client: Signed 09-Oct-2013 PT Letter Result: Comments: See Note; NOTES: [address] [place] [address] Fax Reagan Sharp MD [address] , [address] [place] [address] Sharp: Yarelis Burrows, date of , 1955, was seen for a massotherapy evaluation on November 02, 2012, with a diagnosis of tension headach es. This patient was treated with 6 sessions of massage therapy, which consisted of hrqqjrgf-wf-[id number] tissue full body massage. Myofacial release and muscle stripping were incorporated into the mas annamarie as well as the heat pack to loosen muscles. Due to time constraints with insurance, at this time, I would discharge this patient from our care at [facility] facility . Sincerely, Libby Marie LMT T: NTS JOB: [id number] <Electronically signed by Libby Marie > 10/09/13 1704 CC: -Aug-2013 Bilat Scrn Digital & CAD Result: Comments: See Note; NOTES: [facility] Imaging Services [address] [place] [address] Breast Imaging Report MR#: [id number] Acct: [id number] Name: YARELIS BURROWS p #: [id number] : 1955 F 58 From: Armen Slade MD PCP: Status: REG CLI Exam# [id number] Ordering Dr: Reagan Sharp MD MAMMOGRAPHY - BILATERAL SCREENING REASON FOR EXAM: Female, [age] years old. Routine annual screening examination. PERTINENT HISTORY: Mother with breast cancer. TECHNIQUE: Digital examination. Mediolateral oblique (MLO) and craniocaudad (CC) views of both edmund sts were obtained. CAD: CAD was performed on this study. COMPARISON: Comparison is made with prior study dated August 25, 2012 and August 20, 2011. FINDING S: The breast composition is heterogeneously dense - ranging from 51% to 75% of the breast tissue. There are no dominant masses or suspicious calcifications. No other significant abnormalities are identified. There has been no significant change since the prior study. IMPRESSION: Stable bilateral screening mammogram. Yearly follow-up recommended. (A) ___ ASSESSMENT CATEGORY: BIRADS Category 2: Benign finding(s). A letter regarding these results will be sent to the patient by the facility within 30 days. Approximate ly 10% of breast cancers are not detected by mammography. A normal mammogram should not delay biopsy of a clinically suspicious abnormality. Signed: Armen Slade M.D. August 30, 2013 at 7 :48:44 AM EST [phone] Electronically Signed GP/GP If you are the referring physician and would like to consult with the radiologist who provided this interpretation, please contact Armen Slade M.D. at [phone]. If this radiologist is unavailable, you will be directed to another radiologist to assist. If you are a patient with a question regarding this report, please contact your referring physician directly. Professional Interpretation Provided By: [employer], Phone , These documents contain legally protected and confidential health i nformation intended only for the use of the individual or entity named above. If you are not the intended recipient, you are hereby notified that any disclosure, copying, distribution, or other use of these documents is strictly prohibited. If you have received this information in error, please notify the sender immediately and arrange for the return or destruction of these documents. CC: Reagan Sharp MD Director Client: Signed 29-Aug-2013 Dexa Bone Density Study (HP) Result: Comments: See Note; NOTES: [facility] Imaging Services [address] [place] [address] Bone Density Report MR#: [id number] Acct: [id number] Name: YARELIS BURROWS Rep #: [id number] : 1955 F 58 From: Armen Slade MD PCP: Status: REG CLI Study: Dexa Bone Density Study (HP) Date of Exam: 08/29/13 Exam# [id number] Ordering Dr: Reagan Sharp MD STUDY : DUAL ENERGY X-RAY ABSORPTIOMETRY / DXA REASON FOR EXAM: Female, 58 years old. Osteoporosis. TECHNIQUE: Bone Mineral Density (BMD) measurements of lumbar spine and bilateral hips were obtained. COMPARISON: Comparison is made with prior study dated August 25, 2012. FINDINGS: Lumbar Spine (L1-L4): g/cm2 (0.869) / T-score (-2.6) / Z-score (- 1.5) Finding s are suggestive of osteoporosis with a moderate fracture risk. Left Femur Total: g/cm2 (0.917) / T-score (-0.7) / Z-score (0.1) Left Femoral Neck: g/cm2 (0.842) / T-score (-1.4) / Z-score (-0.2) Ri ght Femur Total: g/cm2 (0.918) / T-score (-0.7) / Z-score (0.2) Right Femoral Neck: g/cm2 (0.846) / T-score (-1.4) / Z-score (-0.2) The T-Scores on the most recent prior examination were: Lumbar Sp ine (L1-L4): There has been worsening of bone density since the previous examination. Left Femur Total: which represents a worsening of 1.3%. Right Femur Total: which represents an improvement of 0. 7%. IMPRESSION: The patient is considered osteoporotic at the level of the lumbar spine and osteopenic at the level of the femoral necks as outlined below accord ing to World Jeff Organization (WHO) criteria with a moderate fracture risk. There has been worsening of bone density since the previous examination. Reference Information: The T-score is the number of standard deviations above or below the standard which is normal for young adults at their peak bone mineral density. The World Health Organization (WHO) int erprets the T-scores as follows: Above -1 Normal bone density Between -1 and -2.5 Osteopenia Equal to / or below -2.5 Osteoporosis As a practical clinical guideline, osteopenia may be graded as f ollows: Mild -1 through -1.5 Moderate -1.6 through -2.0 Severe -2.1 through -2.4 The Z-score is the number of standard deviations above or below age- matched controls. A Z-score of less than -1.5 w ould be considered abnormal. References: 1. NIH Osteoporosis and Related Bone Diseases http://www.osteo.org 2. International Society for Clinical Densitometry http://www.iscd.org 3. National Osteop orosis Foundation http://www.nof.org Signed: Armen Slade M.D. August 30, 2013 at 12:10:19 PM EST [phone] Electronically Signed GP/GP If you are the referring physician and would like to consult with the radiologist who provided this interpretation, please contact Armen Slade M.D. at [phone]. If this radiologist is unavailable, you will be directed to another ra diologist to assist. If you are a patient with a question regarding this report, please contact your referring physician directly. Professional Interpretation Provided By: [employer], Phone , These documents contain legally protected and confidential health information intended only for the use of the individual or entity named above. If you are not the intende d recipient, you are hereby notified that any disclosure, copying, distribution, or other use of these documents is strictly prohibited. If you have received this information in error, please notify the sender immediately and arrange for the return or destruction of these documents. CC: Reagan Sharp MD Director Client: Signed Family History Unknown Family Member Name Dates Details Father Comments: heart disease hx. Triple bypass age 87 Status: Active First Degree Relatives Comments: maternal side many different types of cancer Status: Active Mother Comments: osteoporosis age 88 Status: Active Social History Name Dates Details Alcohol Use Comments: Occasional alcohol use Status: Active Caffeine Use Comments: 1-2 cups qd Status: Active Current Work/Study Status Comments: Full-time, [employer] Status: Active Exercise History Comments: Light Status: Active Living Situation Comments: , Lives with spouse Status: Active No Drug Use Status: Active Non Smoker/No Tobacco Use Status: Active Tobacco use: Never smoker. Status: Active Smoking Status Name Dates Details Never smoker Vital Signs Date Test Result Details :45 Temperature 97.9 f Comments: Method: Temporal Pulse 80 /min Comments: Pattern: Regular Respiration Rate 16 /min Comments: Pattern: Unlabored O2 SAT 95 % Comments: Room air BP Systolic 110 mm[Hg] Comments: Patient Position: Sitting; Cuff Location: Left Arm; Cuff Size: Standard BP Diastolic 60 mm[Hg] Comments: Patient Position: Sitting; Cuff Location: Left Arm; Cuff Size: Standard Weight 176.5 lb Height 64 in Body Mass Index Calculated 30.3 kg/m2 Body Surface Area Calculated 1.85 m2 :02 Temperature 97.6 f Comments: Method: Temporal Pulse 67 /min Comments: Pattern: Regular Respiration Rate 18 /min Comments: Pattern: Unlabored O2 SAT 95 % Comments: Room air BP Systolic 152 mm[Hg] Comments: Patient Position: Sitting; Cuff Location: Left Arm; Cuff Size: Standard BP Diastolic 88 mm[Hg] Comments: Patient Position: Sitting; Cuff Location: Left Arm; Cuff Size: Standard Weight 175.375 lb Height 64 in Body Mass Index Calculated 30.1 kg/m2 Body Surface Area Calculated 1.85 m2 :30 Temperature 97.3 f Comments: Method: Temporal Pulse 73 /min Comments: Pattern: Regular Respiration Rate 16 /min Comments: Pattern: Unlabored O2 SAT 94 % Comments: Room air BP Systolic 142 mm[Hg] Comments: Patient Position: Sitting; Cuff Location: Left Arm; Cuff Size: Standard BP Diastolic 86 mm[Hg] Comments: Patient Position: Sitting; Cuff Location: Left Arm; Cuff Size: Standard Weight 175.375 lb Height 64 in Body Mass Index Calculated 30.1 kg/m2 Body Surface Area Calculated 1.85 m2 :05 Temperature 97.4 f Pulse 74 /min Comments: Pattern: Regular Respiration Rate 16 /min Comments: Pattern: Unlabored O2 SAT 98 % Comments: Room air BP Systolic 112 mm[Hg] Comments: Patient Position: Sitting; Cuff Location: Left Arm; Cuff Size: Standard BP Diastolic 84 mm[Hg] Comments: Patient Position: Sitting; Cuff Location: Left Arm; Cuff Size: Standard Weight 172.5 lb Height 64 in Body Mass Index Calculated 29.61 kg/m2 Body Surface Area Calculated 1.84 m2 :27 Temperature 97.7 f Pulse 67 /min Comments: Pattern: Regular Respiration Rate 17 /min Comments: Pattern: Unlabored O2 SAT 98 % Comments: Room air BP Systolic 118 mm[Hg] Comments: Patient Position: Sitting; Cuff Location: Left Arm; Cuff Size: Standard BP Diastolic 78 mm[Hg] Comments: Patient Position: Sitting; Cuff Location: Left Arm; Cuff Size: Standard Weight 174.125 lb Height 64 in Body Mass Index Calculated 29.89 kg/m2 Body Surface Area Calculated 1.84 m2 :40 Temperature 97.1 f Pulse 70 /min Comments: Pattern: Regular Respiration Rate 16 /min Comments: Pattern: Unlabored O2 SAT 99 % Comments: Room air BP Systolic 126 mm[Hg] Comments: Patient Position: Sitting; Cuff Location: Left Arm; Cuff Size: Standard BP Diastolic 84 mm[Hg] Comments: Patient Position: Sitting; Cuff Location: Left Arm; Cuff Size: Standard Weight 174.5 lb Height 64 in Body Mass Index Calculated 29.95 kg/m2 Body Surface Area Calculated 1.85 m2 :30 Temperature 97.3 f Pulse 83 /min Comments: Pattern: Regular Respiration Rate 18 /min Comments: Pattern: Unlabored O2 SAT 99 % Comments: Room air BP Systolic 138 mm[Hg] Comments: Patient Position: Sitting; Cuff Location: Left Arm; Cuff Size: Standard BP Diastolic 82 mm[Hg] Comments: Patient Position: Sitting; Cuff Location: Left Arm; Cuff Size: Standard Weight 171 lb Height 64 in Body Mass Index Calculated 29.35 kg/m2 Body Surface Area Calculated 1.83 m2 :23 Temperature 97.8 f Comments: Method: Temporal Pulse 76 /min Comments: Pattern: Regular Respiration Rate 16 /min Comments: Pattern: Unlabored O2 SAT 98 % Comments: Room air BP Systolic 124 mm[Hg] Comments: Patient Position: Sitting; Cuff Location: Left Arm; Cuff Size: Standard BP Diastolic 70 mm[Hg] Comments: Patient Position: Sitting; Cuff Location: Left Arm; Cuff Size: Standard Weight 174 lb Height 64 in Body Mass Index Calculated 29.87 kg/m2 Body Surface Area Calculated 1.84 m2 :06 Temperature 97.4 f Pulse 80 /min Comments: Pattern: Regular Respiration Rate 16 /min Comments: Pattern: Unlabored O2 SAT 97 % Comments: Room air BP Systolic 118 mm[Hg] Comments: Patient Position: Sitting; Cuff Location: Left Arm; Cuff Size: Standard BP Diastolic 76 mm[Hg] Comments: Patient Position: Sitting; Cuff Location: Left Arm; Cuff Size: Standard Weight 172 lb Height 64 in Body Mass Index Calculated 29.52 kg/m2 Body Surface Area Calculated 1.83 m2 :29 Temperature 98 f Comments: Method: Temporal Pulse 70 /min Comments: Pattern: Regular Respiration Rate 16 /min Comments: Pattern: Unlabored BP Systolic 132 mm[Hg] Comments: Patient Position: Sitting; Cuff Location: Left Arm; Cuff Size: Standard BP Diastolic 78 mm[Hg] Comments: Patient Position: Sitting; Cuff Location: Left Arm; Cuff Size: Standard Weight 169 lb Height 64 in Body Mass Index Calculated 29.01 kg/m2 Body Surface Area Calculated 1.82 m2 :44 Temperature 97.3 f Comments: Method: Temporal Pulse 74 /min Comments: Pattern: Regular Respiration Rate 16 /min Comments: Pattern: Unlabored O2 SAT 98 % Comments: Room air BP Systolic 122 mm[Hg] Comments: Patient Position: Sitting; Cuff Location: Left Arm; Cuff Size: Standard BP Diastolic 76 mm[Hg] Comments: Patient Position: Sitting; Cuff Location: Left Arm; Cuff Size: Standard Weight 165.375 lb Height 64 in Body Mass Index Calculated 28.39 kg/m2 Body Surface Area Calculated 1.8 m2 :27 Pulse 75 /min Comments: Pattern: Regular Respiration Rate 16 /min Comments: Pattern: Unlabored O2 SAT 98 % Comments: Room air BP Systolic 130 mm[Hg] Comments: Patient Position: Sitting; Cuff Location: Left Arm; Cuff Size: Standard BP Diastolic 78 mm[Hg] Comments: Patient Position: Sitting; Cuff Location: Left Arm; Cuff Size: Standard Weight 165.375 lb Height 64 in Body Mass Index Calculated 28.39 kg/m2 Body Surface Area Calculated 1.8 m2 :19 Temperature 97.8 f Pulse 68 /min Comments: Pattern: Regular Respiration Rate 16 /min Comments: Pattern: Unlabored O2 SAT 99 % Comments: Room air BP Systolic 140 mm[Hg] Comments: Patient Position: Sitting; Cuff Location: Left Arm; Cuff Size: Standard BP Diastolic 78 mm[Hg] Comments: Patient Position: Sitting; Cuff Location: Left Arm; Cuff Size: Standard Weight 160.375 lb Height 64 in Body Mass Index Calculated 27.53 kg/m2 Body Surface Area Calculated 1.78 m2 :11 Temperature 98.3 f Comments: Method: Temporal Pulse 70 /min Comments: Pattern: Regular Respiration Rate 15 /min Comments: Pattern: Unlabored O2 SAT 98 % Comments: Room air BP Systolic 152 mm[Hg] Comments: Patient Position: Sitting; Cuff Location: Left Arm; Cuff Size: Standard BP Diastolic 84 mm[Hg] Comments: Patient Position: Sitting; Cuff Location: Left Arm; Cuff Size: Standard Weight 161 lb Height 64 in Body Mass Index Calculated 27.64 kg/m2 Body Surface Area Calculated 1.78 m2 :54 Temperature 97.8 f Pulse 71 /min Comments: Pattern: Regular Respiration Rate 16 /min Comments: Pattern: Unlabored O2 SAT 98 % Comments: Room air BP Systolic 152 mm[Hg] Comments: Patient Position: Sitting; Cuff Location: Left Arm; Cuff Size: Standard BP Diastolic 86 mm[Hg] Comments: Patient Position: Sitting; Cuff Location: Left Arm; Cuff Size: Standard Weight 158 lb Height 64 in Body Mass Index Calculated 27.12 kg/m2 Body Surface Area Calculated 1.77 m2 :05 Temperature 97.6 f Comments: Method: Temporal Pulse 74 /min Comments: Pattern: Regular Respiration Rate 18 /min Comments: Pattern: Unlabored O2 SAT 95 % Comments: Room air BP Systolic 142 mm[Hg] Comments: Patient Position: Sitting; Cuff Location: Left Arm; Cuff Size: Standard BP Diastolic 84 mm[Hg] Comments: Patient Position: Sitting; Cuff Location: Left Arm; Cuff Size: Standard Weight 156 lb Height 64 in Body Mass Index Calculated 26.78 kg/m2 Body Surface Area Calculated 1.76 m2 :33 Temperature 98.3 f Comments: Method: Oral Pulse 69 /min Comments: Pattern: Regular Respiration Rate 16 /min Comments: Pattern: Unlabored O2 SAT 98 % Comments: Room air BP Systolic 130 mm[Hg] Comments: Patient Position: Sitting; Cuff Location: Left Arm; Cuff Size: Standard BP Diastolic 70 mm[Hg] Comments: Patient Position: Sitting; Cuff Location: Left Arm; Cuff Size: Standard Weight 148 lb Height 64 in Body Mass Index Calculated 25.4 kg/m2 Body Surface Area Calculated 1.72 m2 :11 Temperature 97.8 f Comments: Method: Temporal Pulse 74 /min Comments: Pattern: Regular Respiration Rate 16 /min Comments: Pattern: Unlabored O2 SAT 98 % Comments: Room air BP Systolic 126 mm[Hg] Comments: Patient Position: Sitting; Cuff Location: Left Arm; Cuff Size: Standard BP Diastolic 70 mm[Hg] Comments: Patient Position: Sitting; Cuff Location: Left Arm; Cuff Size: Standard Weight 148 lb Height 64 in Body Mass Index Calculated 25.4 kg/m2 Body Surface Area Calculated 1.72 m2 :32 Temperature 97.6 f Comments: Method: Temporal Pulse 64 /min Comments: Pattern: Regular Respiration Rate 18 /min Comments: Pattern: Unlabored O2 SAT 97 % Comments: Room air BP Systolic 116 mm[Hg] Comments: Patient Position: Sitting; Cuff Location: Left Arm; Cuff Size: Standard BP Diastolic 76 mm[Hg] Comments: Patient Position: Sitting; Cuff Location: Left Arm; Cuff Size: Standard Weight 148 lb Height 64 in Body Mass Index Calculated 25.4 kg/m2 Body Surface Area Calculated 1.72 m2 :54 Temperature 98 f Pulse 83 /min Comments: Pattern: Regular Respiration Rate 16 /min Comments: Pattern: Unlabored O2 SAT 98 % Comments: Room air BP Systolic 110 mm[Hg] Comments: Patient Position: Sitting; Cuff Location: Left Arm; Cuff Size: Standard BP Diastolic 78 mm[Hg] Comments: Patient Position: Sitting; Cuff Location: Left Arm; Cuff Size: Standard Weight 153 lb Height 64 in Body Mass Index Calculated 26.26 kg/m2 Body Surface Area Calculated 1.75 m2 :02 Temperature 98.5 f Pulse 18 /min Comments: Pattern: Regular Respiration Rate 16 /min Comments: Pattern: Unlabored O2 SAT 98 % Comments: Room air BP Systolic 142 mm[Hg] Comments: Patient Position: Sitting; Cuff Location: Left Arm; Cuff Size: Standard BP Diastolic 82 mm[Hg] Comments: Patient Position: Sitting; Cuff Location: Left Arm; Cuff Size: Standard Weight 180.125 lb Height 64 in Body Mass Index Calculated 30.92 kg/m2 Body Surface Area Calculated 1.87 m2 :18 Temperature 99.2 f Comments: Method: Oral Pulse 92 /min Comments: Pattern: Regular Respiration Rate 16 /min O2 SAT 98 % Comments: Room air BP Systolic 120 mm[Hg] Comments: Patient Position: Sitting; Cuff Location: Left Arm; Cuff Size: Standard BP Diastolic 78 mm[Hg] Comments: Patient Position: Sitting; Cuff Location: Left Arm; Cuff Size: Standard Weight 175 lb Height 64 in Body Mass Index Calculated 30.04 kg/m2 Body Surface Area Calculated 1.85 m2 [id number] Pulse 76 /min Comments: Pattern: Regular Respiration Rate 16 /min Comments: Pattern: Unlabored O2 SAT 98 % Comments: Room air BP Systolic 120 mm[Hg] Comments: Patient Position: Sitting; Cuff Location: Left Arm; Cuff Size: Standard BP Diastolic 72 mm[Hg] Comments: Patient Position: Sitting; Cuff Location: Left Arm; Cuff Size: Standard Weight 175 lb Height 64 in Body Mass Index Calculated 30.04 kg/m2 Body Surface Area Calculated 1.85 m2 :32 Pulse 81 /min Comments: Pattern: Regular Respiration Rate 20 /min Comments: Pattern: Unlabored O2 SAT 98 % Comments: Room air BP Systolic 122 mm[Hg] Comments: Patient Position: Sitting; Cuff Location: Left Arm; Cuff Size: Large BP Diastolic 80 mm[Hg] Comments: Patient Position: Sitting; Cuff Location: Left Arm; Cuff Size: Large Weight 175 lb Height 64 in Body Mass Index Calculated 30.04 kg/m2 Body Surface Area Calculated 1.85 m2 :15 Temperature 97.8 f Comments: Method: Oral Pulse 68 /min Comments: Pattern: Regular Respiration Rate 20 /min Comments: Pattern: Unlabored BP Systolic 124 mm[Hg] Comments: Patient Position: Sitting; Cuff Location: Left Arm; Cuff Size: Standard BP Diastolic 78 mm[Hg] Comments: Patient Position: Sitting; Cuff Location: Left Arm; Cuff Size: Standard Weight 175 lb Height 64 in Body Mass Index Calculated 30.04 kg/m2 Body Surface Area Calculated 1.85 m2 :09 Temperature 98 f Comments: Method: Oral Pulse 70 /min Comments: Pattern: Regular Respiration Rate 16 /min O2 SAT 98 % Comments: Room air BP Systolic 130 mm[Hg] Comments: Patient Position: Sitting; Cuff Location: Left Arm; Cuff Size: Standard BP Diastolic 78 mm[Hg] Comments: Patient Position: Sitting; Cuff Location: Left Arm; Cuff Size: Standard Weight 171 lb Height 64 in Body Mass Index Calculated 29.35 kg/m2 Body Surface Area Calculated 1.83 m2 :07 Temperature 98.2 f Comments: Method: Oral Pulse 74 /min Comments: Pattern: Regular Respiration Rate 18 /min Comments: Pattern: Unlabored BP Systolic 122 mm[Hg] Comments: Patient Position: Sitting; Cuff Location: Left Arm; Cuff Size: Standard BP Diastolic 78 mm[Hg] Comments: Patient Position: Sitting; Cuff Location: Left Arm; Cuff Size: Standard Weight 171 lb Height 64 in Body Mass Index Calculated 29.35 kg/m2 Body Surface Area Calculated 1.83 m2 :09 Temperature 97.8 f Comments: Method: Temporal Pulse 69 /min Comments: Pattern: Regular Respiration Rate 16 /min Comments: Pattern: Unlabored O2 SAT 98 % Comments: Room air BP Systolic 128 mm[Hg] Comments: Patient Position: Sitting; Cuff Location: Left Arm; Cuff Size: Standard BP Diastolic 80 mm[Hg] Comments: Patient Position: Sitting; Cuff Location: Left Arm; Cuff Size: Standard Weight 170.2 lb Height 64 in Body Mass Index Calculated 29.21 kg/m2 Body Surface Area Calculated 1.83 m2 :25 Temperature 95 f Comments: Method: Temporal Pulse 78 /min Comments: Pattern: Regular Respiration Rate 16 /min Comments: Pattern: Unlabored O2 SAT 98 % Comments: Room air BP Systolic 126 mm[Hg] Comments: Patient Position: Sitting; Cuff Location: Left Arm; Cuff Size: Standard BP Diastolic 80 mm[Hg] Comments: Patient Position: Sitting; Cuff Location: Left Arm; Cuff Size: Standard Weight 169.7 lb Height 64 in Body Mass Index Calculated 29.13 kg/m2 Body Surface Area Calculated 1.82 m2 :23 Temperature 97.9 f Comments: Method: Oral Pulse 64 /min Comments: Pattern: Regular Respiration Rate 17 /min BP Systolic 150 mm[Hg] Comments: Patient Position: Sitting; Cuff Location: Left Arm; Cuff Size: Standard BP Diastolic 88 mm[Hg] Comments: Patient Position: Sitting; Cuff Location: Left Arm; Cuff Size: Standard Weight 172.9 lb Height 64 in Body Mass Index Calculated 29.68 kg/m2 Body Surface Area Calculated 1.84 m2 :40 Temperature 97 f Comments: Method: Temporal Pulse 74 /min Comments: Pattern: Regular Respiration Rate 16 /min Comments: Pattern: Unlabored O2 SAT 98 % Comments: Room air BP Systolic 122 mm[Hg] Comments: Patient Position: Sitting; Cuff Location: Left Arm; Cuff Size: Standard BP Diastolic 72 mm[Hg] Comments: Patient Position: Sitting; Cuff Location: Left Arm; Cuff Size: Standard Weight 172.9 lb Height 64 in Body Mass Index Calculated 29.68 kg/m2 Body Surface Area Calculated 1.84 m2 :43 Pulse 70 /min Comments: Pattern: Regular Respiration Rate 17 /min O2 SAT 98 % Comments: Room air BP Systolic 140 mm[Hg] Comments: Patient Position: Sitting; Cuff Location: Left Arm; Cuff Size: Standard BP Diastolic 80 mm[Hg] Comments: Patient Position: Sitting; Cuff Location: Left Arm; Cuff Size: Standard Weight 170 lb Height 64 in Body Mass Index Calculated 29.18 kg/m2 Body Surface Area Calculated 1.83 m2 :34 Temperature 98.2 f Comments: Method: Oral Pulse 72 /min Comments: Pattern: Regular Respiration Rate 16 /min Comments: Pattern: Unlabored BP Systolic 132 mm[Hg] Comments: Patient Position: Sitting; Cuff Location: Left Arm; Cuff Size: Standard BP Diastolic 70 mm[Hg] Comments: Patient Position: Sitting; Cuff Location: Left Arm; Cuff Size: Standard Weight 170 lb Height 64 in Body Mass Index Calculated 29.18 kg/m2 Body Surface Area Calculated 1.83 m2 :49 Temperature 98 f Comments: Method: Oral Pulse 68 /min Comments: Pattern: Regular Respiration Rate 18 /min Comments: Pattern: Unlabored BP Systolic 124 mm[Hg] Comments: Patient Position: Sitting; Cuff Location: Left Arm; Cuff Size: Standard BP Diastolic 80 mm[Hg] Comments: Patient Position: Sitting; Cuff Location: Left Arm; Cuff Size: Standard Weight 170 lb Height 64 in Body Mass Index Calculated 29.18 kg/m2 Body Surface Area Calculated 1.83 m2 :21 Temperature 97.6 f Comments: Method: Oral Pulse 64 /min Comments: Pattern: Regular Respiration Rate 18 /min Comments: Pattern: Unlabored BP Systolic 120 mm[Hg] Comments: Patient Position: Sitting; Cuff Location: Left Arm; Cuff Size: Standard BP Diastolic 80 mm[Hg] Comments: Patient Position: Sitting; Cuff Location: Left Arm; Cuff Size: Standard Weight 168 lb Height 64 in Body Mass Index Calculated 28.84 kg/m2 Body Surface Area Calculated 1.82 m2 :14 Temperature 97.6 f Comments: Method: Oral Pulse 70 /min Comments: Pattern: Regular Respiration Rate 18 /min Comments: Pattern: Unlabored BP Systolic 142 mm[Hg] Comments: Patient Position: Sitting; Cuff Location: Left Arm; Cuff Size: Standard BP Diastolic 90 mm[Hg] Comments: Patient Position: Sitting; Cuff Location: Left Arm; Cuff Size: Standard Weight 168 lb Height 64 in Body Mass Index Calculated 28.84 kg/m2 Body Surface Area Calculated 1.82 m2 :20 Temperature 97.2 f Comments: Method: Oral Pulse 80 /min Comments: Pattern: Regular Respiration Rate 16 /min Comments: Pattern: Unlabored BP Systolic 132 mm[Hg] Comments: Patient Position: Sitting; Cuff Location: Left Arm; Cuff Size: Standard BP Diastolic 78 mm[Hg] Comments: Patient Position: Sitting; Cuff Location: Left Arm; Cuff Size: Standard Weight 166 lb :12 Temperature 97.9 f Comments: Method: Oral Pulse 78 /min Comments: Pattern: Regular Respiration Rate 17 /min Comments: Pattern: Unlabored BP Systolic 124 mm[Hg] Comments: Patient Position: Sitting; Cuff Location: Left Arm; Cuff Size: Standard BP Diastolic 80 mm[Hg] Comments: Patient Position: Sitting; Cuff Location: Left Arm; Cuff Size: Standard Weight 166 lb :06 Temperature 98.4 f Pulse 88 /min Comments: Pattern: Regular Respiration Rate 18 /min Comments: Pattern: Unlabored BP Systolic 122 mm[Hg] Comments: Patient Position: Sitting; Cuff Location: Left Arm; Cuff Size: Standard BP Diastolic 68 mm[Hg] Comments: Patient Position: Sitting; Cuff Location: Left Arm; Cuff Size: Standard :28 Temperature 97 f Comments: Method: Oral Pulse 72 /min Comments: Pattern: Regular Respiration Rate 17 /min Comments: Pattern: Unlabored BP Systolic 120 mm[Hg] Comments: Patient Position: Sitting; Cuff Location: Left Arm; Cuff Size: Standard BP Diastolic 80 mm[Hg] Comments: Patient Position: Sitting; Cuff Location: Left Arm; Cuff Size: Standard Weight 166 lb :05 Temperature 98 f Comments: Method: Oral Pulse 80 /min Comments: Pattern: Regular Respiration Rate 20 /min Comments: Pattern: Unlabored BP Systolic 124 mm[Hg] Comments: Patient Position: Sitting; Cuff Location: Left Arm; Cuff Size: Large BP Diastolic 78 mm[Hg] Comments: Patient Position: Sitting; Cuff Location: Left Arm; Cuff Size: Large Weight 166 lb Height 0 in Head Circumference 0.00 cm :12 Temperature 97.8 f Comments: Method: Undefined Pulse 76 /min Comments: Pattern: Regular Respiration Rate 18 /min Comments: Pattern: Undefined BP Systolic 126 mm[Hg] Comments: Patient Position: Sitting; Cuff Location: Left Arm; Cuff Size: Large BP Diastolic 80 mm[Hg] Comments: Patient Position: Sitting; Cuff Location: Left Arm; Cuff Size: Large Weight 0 lb Height 0 in Head Circumference 0.00 cm :46 Pulse 74 /min Comments: Pattern: Regular Respiration Rate 16 /min Comments: Pattern: Unlabored BP Systolic 122 mm[Hg] Comments: Patient Position: Sitting; Cuff Location: Left Arm; Cuff Size: Large BP Diastolic 84 mm[Hg] Comments: Patient Position: Sitting; Cuff Location: Left Arm; Cuff Size: Large Weight 166 lb Height 0 in Head Circumference 0.00 cm Results Date Description Value Details [id number] Basic Metabolic Profile (BMP) Comments: [facility] [id number] [place], [address] GAP 5 (Normal) Range: 5-15 CO2 31.0 mmol/L (Normal) Range: 21.0-32.0 CL 107 mmol/L (Normal) Range: 98-107 K 3.2 mmol/L (Abnormal) Range: 3.5-5.1 NA 143 mmol/L (Normal) Range: 136-145 CA 8.8 mg/dL (Normal) Range: 8.5-10.1 BUN/CRE 20.4 {RATIO} (Abnormal) Range: 10-20 Estimated CRCL 62.92 ml/min (Normal) EST GFR - AA 95 mL/min (Normal) Comments: GFR Calc EST GFR 79 mL/min (Normal) Comments: Non- GFR Calc CREAT,SERUM 0.78 mg/dL (Normal) Range: 0.55-1.02 Comments: The validity of the calculated GFR AND GFRAA in patients over70 years has not been determined. Clinical correlation isessential. BUN 16 mg/dL (Normal) Range: 7-18 GLU 101 mg/dL (Normal) Range: 74-106 Comments: Fasting Glucose result from 100 to 125 mg/dLsuggests IMPAIRED HOMEOSTASIS per A.D.A. criteria.Please note revised GLUCOSE reference range [id number]/2018. [id number] CBC W/Diff, Automated Comments: [facility] [id number] [place], [place], [id number] Absolute Lymph 1.37 {X10_3/ul} (Normal) Range: 0.83-4.51 Absolute Neut 5.2 {X10_3/uL} (Normal) Range: 2.0-7.7 IM GRAN % 0.100 % (Normal) Range: 0.0-0.9 Comments: IG% - Immature Granulocytes (promyelocytes, myelocytes andmetamyelocytes) > 1% indicates that a LEFT SHIFT is Present. BASO% 0.3 % (Normal) Range: 0-1 EO% 1.4 % (Normal) Range: 0-5 MONO% 9.5 % (Normal) Range: 0-10 LY% 18.6 % (Abnormal) Range: 19-41 NEUT% 70.1 % (Abnormal) Range: 47-70 MPV 10.5 fL (Normal) Range: 6.2-12.0 PLT 192 K/mm3 (Normal) Range: 150-450 RDW SD 38.4 fL (Normal) Range: 35.1-43.9 RDW CV 12.0 % (Normal) Range: 11.6-14.6 MCHC 33.2 {g/gl} (Normal) Range: 32-36 MCH 29.6 pg (Normal) Range: 27.0-32.0 MCV 88.9 fL (Normal) Range: 81-99 HCT 37.0 % (Normal) Range: 37-47 HGB 12.3 g/dL (Normal) Range: 12.0-15.0 RBC 4.16 {M/mm3} (Abnormal) Range: 4.2-5.4 WBC 7.4 K/mm3 (Normal) Range: 4.4-11.0 [id number] Troponin-I Comments: [facility] [id number] [place], [place], [id number] TROPONIN-I < 0.015 ng/mL (Normal) Comments: TROPONIN-I EXPECTED VALUES <0.045 Negative 0.045 - 0.590 Consistent with Cardiac Damage > OR = 0.600 Critical Value Not every elevated troponin is indicative of SC. T hesevalues should be used with clinical judgement in examiningthe patient's clinical picture for diagnosis. To establisha diagnosis of SC versus myocardial injury, there must be ademonstrated rise and/ or fall in the troponin values, inaddition to ischemic symptoms, EKG changes, new regionalwall motion abnormality, and/or angiographical evidence. PLEASE NOTE: REFERENCE RANGES EDITED 02/21/1804-Aug-[id number] D-Dimer Quantitative (DVT/PE) Comments: [facility] [id number] [place], [place], [id number] D-DIMER QUANT 0.27 {FEU/ug/m} (Normal) Range: 0.27-0.49 Comments: NORMAL D-Dimer level (<0.50) indicates no DVT or PE. [id number]:08 CBC, Platelets & Auto Diff Comments: PATIENT WAS FASTINGPERFORMED BY: [facility] [id number] ([id number]) Immature Grans (Abs) 0.0 {x10E3/uL} (Normal) Range: 0.0-0.1 Immature Granulocytes 0 % (Normal) Baso (Absolute) 0.0 {x10E3/uL} (Normal) Range: 0.0-0.2 Eos (Absolute) 0.1 {x10E3/uL} (Normal) Range: 0.0-0.4 Monocytes(Absolute) 0.2 {x10E3/uL} (Normal) Range: 0.1-0.9 Lymphs (Absolute) 1.2 {x10E3/uL} (Normal) Range: 0.7-3.1 Neutrophils (Absolute) 2.4 {x10E3/uL} (Normal) Range: 1.4-7.0 Basos 1 % (Normal) Eos 3 % (Normal) Monocytes 6 % (Normal) Lymphs 29 % (Normal) Neutrophils 61 % (Normal) Platelets 194 {x10E3/uL} (Normal) Range: 150-379 RDW 14.2 % (Normal) Range: 12.3-15.4 MCHC 34.3 g/dL (Normal) Range: 31.5-35.7 MCH 30.0 pg (Normal) Range: 26.6-33.0 MCV 87 fL (Normal) Range: 79-97 Hematocrit 35.3 % (Normal) Range: 34.0-46.6 Hemoglobin 12.1 g/dL (Normal) Range: 11.1-15.9 RBC 4.04 {x10E6/uL} (Normal) Range: 3.77-5.28 WBC 3.9 {x10E3/uL} (Normal) Range: 3.4-10.8 :08 Lipid Panel ([id number]) Comments: PATIENT WAS FASTINGPERFORMED BY: [employer] [id number] [facility] [id number] LDL/HDL Ratio 2.9 {ratio} (Normal) Range: 0.0-3.2 Comments: LDL/HDL Ratio Men Women 1/2 Avg.Risk 1.0 1.5 Av g.Risk 3.6 3.2 2X Avg.Risk 6.2 5.0 3X Avg.Risk 8.0 6.1 LDL Cholesterol Calc 159 mg/dL (Abnormal) Range: 0-99 VLDL Cholesterol Damon 27 mg/dL (Normal) Range: 5-40 HDL Cholesterol 55 mg/dL (Normal) Triglycerides 134 mg/dL (Normal) Range: 0-149 Cholesterol, Total 241 mg/dL (Abnormal) Range: 100-199 :08 Metabolic Panel, Comprehensive Comments: PATIENT WAS FASTINGPERFORMED BY: [employer] Tuvclp1685 [facility] [id number] ([id number]) ALT (SGPT) 27 [iU]/L (Normal) Range: 0-32 AST (SGOT) 25 [iU]/L (Normal) Range: 0-40 Alkaline Phosphatase 79 [iU]/L (Normal) Range: 39-117 Bilirubin, Total 0.7 mg/dL (Normal) Range: 0.0-1.2 A/G Ratio 2.0 (Normal) Range: 1.2-2.2 Globulin, Total 2.3 g/dL (Normal) Range: 1.5-4.5 Albumin 4.5 g/dL (Normal) Range: 3.6-4.8 Protein, Total 6.8 g/dL (Normal) Range: 6.0-8.5 Calcium 9.1 mg/dL (Normal) Range: 8.7-10.3 Carbon Dioxide, Total 25 mmol/L (Normal) Range: 20-29 Comments: Please note reference interval change Chloride 103 mmol/L (Normal) Range: 96-106 Potassium 3.7 mmol/L (Normal) Range: 3.5-5.2 Sodium 145 mmol/L Range: 134-144 (Abnormal) BUN/Creatinine Ratio 18 (Normal) Range: 12-28 eGFR If Africn Am 88 mL/min/1.73 (Normal) eGFR If NonAfricn Am 76 mL/min/1.73 (Normal) Creatinine 0.82 mg/dL (Normal) Range: 0.57-1.00 BUN 15 mg/dL (Normal) Range: 8-27 Glucose 91 mg/dL (Normal) Range: 65-99 31-Str-08831:0 GALLBLADDER See Note (Normal) Comments: [facility] [address] [place], [address] 0 Comments: Patient: YARELIS BURROWS : 1955 (62/F) Acct Num: [id number] Phys: Chepe PARDO,Chidi Unit Num: [id number] Loc: [facility] [place] Specimen: [id number] Received: 01/25/181515 Spec Ty pe: GALLBLADDE TISSUES TISSUES: Gallbladder, NOS GROSS DESCRIPTION Received is one container labeled with the patient's name and designated gallbladder. The specimen c onsists of a gallbladder measuring 9.5 cm in length and up to 4 cm in diameter. The external surface is pink-watson, smooth andglistening for the most part. Focally it is granular, hemorrhagic and contai ns cautery artifact. The gallbladder contains four variable size greenish- brown stones and stone fragments measuring in aggregate 2.5 x 2.5 x 1.5 cm and 0.5 to 1.5 cm in greatest dimension. The mucosa is bile-stained and without any mass lesions. The gallbladder wall measures up to 0.2 cm in thickness. Ship/Rec/Doc Control sections from the gallbladder and the cystic duct are submitted in one cassette. / PITER:trevor 01/25/18 TC:3 CPT: 56986 HEADER OPERATION: Laparoscopic cholecystectomy PRE-OP DIAGNOSIS: Calculus of gallbladder with chronic cholecystitis without obstruction TISSUE SUBMITTED: Adriel avalos MICROSCOPIC DESCRIPTION Slides are reviewed. MICROSCOPIC DIAGNOSIS Gallbladder: Chronic cholecystitis and cholelithiasis. PITER:trevor 01/26/18 Signed Osmany Velarde 01/26/18 <signature on file> 62-Nos-72496:18 CBC-Complete Blood Cnt No Diff Comments: [facility] [address] [place], [place], [address] MPV 11.2 fL (Normal) Range: 6.2-12.0 PLT 167 K/mm3 (Normal) Range: 150-450 RDW SD 38.1 fL (Normal) Range: 35.1-43.9 RDW CV 12.2 % (Normal) Range: 11.6-14.6 MCHC 34.7 {g/gl} (Normal) Range: 32-36 MCH 30.7 pg (Normal) Range: 27.0-32.0 MCV 88.3 fL (Normal) Range: 81-99 HCT 36.3 % (Abnormal) Range: 37-47 HGB 12.6 g/dL (Normal) Range: 12.0-15.0 RBC 4.11 {M/mm3} (Abnormal) Range: 4.2-5.4 WBC 3.3 K/mm3 (Abnormal) Range: 4.4-11.0 48-Cwa-62684:11 HEPATIC FUNCTION PANEL Comments: PATIENT NOT FASTINGPERFORMED BY: [employer] Oeknio6515 [facility] [id number] (04285) ALT (SGPT) 20 [iU]/L (Normal) Range: 0-32 AST (SGOT) 17 [iU]/L (Normal) Range: 0-40 Alkaline Phosphatase 78 [iU]/L (Normal) Range: 39-117 Bilirubin, Direct 0.17 mg/dL (Normal) Range: 0.00-0.40 Bilirubin, Total 0.9 mg/dL (Normal) Range: 0.0-1.2 Albumin 4.4 g/dL (Normal) Range: 3.6-4.8 Protein, Total 6.8 g/dL (Normal) Range: 6.0-8.5 :11 PARATHORMONE (76611) Comments: PATIENT NOT FASTINGPERFORMED BY: [employer] Ywzjkm[address] [employer] [place] [id number] PTH, Intact 45 pg/mL (Normal) Range: 15-65 :11 CALCIUM SERUM (20445) Comments: PATIENT NOT FASTINGPERFORMED BY: [employer]ster[address] [employer] [place] [id number] Calcium 9.0 mg/dL (Normal) Range: 8.7-10.3 :35 HEPATITIS PANEL (67872) Comments: PATIENT NOT FASTINGPERFORMED BY: [employer]ster[address] [facility] [id number] Hep C Virus Ab <0.1 {s/co_ratio} (Normal) Range: 0.0-0.9 Comments: Negative: < 0.8 Indeterminate: 0.8 - 0.9 Positive: > 0.9 . The CDC recommends that a positive HCV antibody result be followed up with a HCV Nucleic Acid Amplification test (596456). Hep B Core Ab, IgM Negative (Normal) HBsAg Screen Negative (Normal) Hep A Ab, IgM Negative (Normal) :35 [id number] (35381) Comments: PATIENT NOT FASTINGPERFORMED BY: [employer] Ciglyf[address] [facility] [place] [id number] AFP, Serum, Tumor Marker 8.0 ng/mL (Normal) Range: 0.0-8.3 Comments: Alexandra ECLIA methodology :49 Urinalysis, Office (57124) URINE UROBILINGN JEANNINE TIMED 2 mg/dL (Normal) UA - NITRITE Negative (Normal) UA - LEUKOCYTE ESTERASE Small (Normal) UA - PROTEIN Negative mg/dL (Normal) UA - PH 7.5 (Normal) UA - BLOOD Negative (Normal) UA - SPECIFIC GRAVITY 1.015 (Normal) UA - KETONES Negative mg/dL (Normal) UA - BILIRUBIN Negative (Normal) UA - GLUCOSE Negative (Normal) :15 CBC With Differential/Platelet Comments: PATIENT WAS FASTINGPERFORMED BY: [facility]6370 [facility] [id number] Immature Grans (Abs) 0.0 {x10E3/uL} (Normal) Range: 0.0-0.1 Immature Granulocytes 0 % (Normal) Baso (Absolute) 0.0 {x10E3/uL} (Normal) Range: 0.0-0.2 Eos (Absolute) 0.1 {x10E3/uL} (Normal) Range: 0.0-0.4 Monocytes(Absolute) 0.5 {x10E3/uL} (Normal) Range: 0.1-0.9 Lymphs (Absolute) 1.2 {x10E3/uL} (Normal) Range: 0.7-3.1 Neutrophils (Absolute) 3.9 {x10E3/uL} (Normal) Range: 1.4-7.0 Basos 1 % (Normal) Eos 1 % (Normal) Monocytes 8 % (Normal) Lymphs 21 % (Normal) Neutrophils 69 % (Normal) Platelets 184 {x10E3/uL} (Normal) Range: 150-379 RDW 13.6 % (Normal) Range: 12.3-15.4 MCHC 34.5 g/dL (Normal) Range: 31.5-35.7 MCH 30.0 pg (Normal) Range: 26.6-33.0 MCV 87 fL (Normal) Range: 79-97 Hematocrit 36.8 % (Normal) Range: 34.0-46.6 Hemoglobin 12.7 g/dL (Normal) Range: 11.1-15.9 RBC 4.24 {x10E6/uL} (Normal) Range: 3.77-5.28 WBC 5.7 {x10E3/uL} (Normal) Range: 3.4-10.8 :15 Comp. Metabolic Panel (14) Comments: PATIENT WAS FASTINGPERFORMED BY: [facility]CoCape [facility] CenterYncnrk0684 [facility] [id number] ALT (SGPT) 91 [iU]/L (Abnormal) Range: 0-32 AST (SGOT) 47 [iU]/L (Abnormal) Range: 0-40 Alkaline Phosphatase, S 95 [iU]/L (Normal) Range: 39-117 Bilirubin, Total 0.8 mg/dL (Normal) Range: 0.0-1.2 A/G Ratio 1.9 (Normal) Range: 1.2-2.2 Globulin, Total 2.3 (Normal) Range: 1.5-4.5 Albumin, Serum 4.4 g/dL (Normal) Range: 3.6-4.8 Protein, Total, Serum 6.7 g/dL (Normal) Range: 6.0-8.5 Calcium, Serum 9.2 mg/dL (Normal) Range: 8.7-10.3 Carbon Dioxide, Total 27 mmol/L (Normal) Range: 18-29 Chloride, Serum 100 mmol/L (Normal) Range: 96-106 Potassium, Serum 3.9 mmol/L (Normal) Range: 3.5-5.2 Sodium, Serum 144 mmol/L (Normal) Range: 134-144 BUN/Creatinine Ratio 24 (Normal) Range: 12-28 eGFR If Africn Am 84 (Normal) eGFR If NonAfricn Am 73 (Normal) Creatinine, Serum 0.85 mg/dL (Normal) Range: 0.57-1.00 BUN 20 mg/dL (Normal) Range: 8-27 Glucose, Serum 95 mg/dL (Normal) Range: 65-99 :15 Lipid Panel With LDL/HDL Comments: PATIENT WAS FASTINGPERFORMED BY: [facility]CoC[facility] CenterRbpiig9687 [facility] [id number] Ratio LDL/HDL Ratio 1.6 (Normal) Range: 0.0-3.2 Comments: LDL/HDL Ratio Men Women 1/2 Avg.Risk 1.0 1.5 Av g.Risk 3.6 3.2 2X Avg.Risk 6.2 5.0 3X Avg.Risk 8.0 6.1 LDL Cholesterol Calc 92 (Normal) Range: 0-99 VLDL Cholesterol Damon 29 (Normal) Range: 5-40 HDL Cholesterol 56 mg/dL (Normal) Triglycerides 145 mg/dL (Normal) Range: 0-149 Cholesterol, Total 177 mg/dL (Normal) Range: 100-199 :15 Microscopic Examination Comments: PATIENT WAS FASTINGPERFORMED BY: [facility] MastCape [facility] Medical CenterGgveld5131 [facility] [id number] Bacteria Few (Normal) Mucus Threads Present (Normal) Epithelial Cells (non 0-10 {/hpf} Range: 0 - 10 renal) (Normal) RBC 0-2 {/hpf} (Normal) Range: 0 - 2 WBC 11-30 {/hpf} Range: 0 - 5 (Abnormal) TSH 2.840 {uIU/mL} Comments: PATIENT WAS FASTINGPERFORMED BY: [employer] Acnyci7466 [facility] [id number] :15 (Normal) Range: 0.450-4.500 :15 Urinalysis, Complete Comments: PATIENT WAS FASTINGPERFORMED BY: [employer] Jjhpui2636 [facility] [id number] Microscopic Examination See below: (Normal) Comments: Microscopic was indicated and was performed. Nitrite, Urine Positive (Abnormal) Urobilinogen,Semi-Qn 0.2 mg/dL (Normal) Range: 0.2-1.0 Bilirubin Negative (Normal) Occult Blood Negative (Normal) Ketones Negative (Normal) Glucose Negative (Normal) Protein Negative (Normal) WBC Esterase 2+ (Abnormal) Appearance Clear (Normal) Urine-Color Yellow (Normal) pH 7.5 (Normal) Range: 5.0-7.5 Specific [place] 1.015 (Normal) Range: 1.005-1.030 :06 URINE YAIR CULTURE-IDENTIFICATN Comments: PATIENT NOT FASTINGPERFORMED BY: [facility]Mobile[facility]6370 [facility] [id number] Information: SRC:CARMEN (43748) Antimicrobial MIHEAD (Normal) Comments: S = Susceptible; I = Intermediate; R = Resistant P = Positive; N = Negative MICS are expressed in micrograms per mL Antibiotic RSLT#1 RSLT#2 RS Susceptibility LT#3 RSLT#4Amoxicillin/Clavulanic Acid SAmpicillin RCefepime SCeftriaxone SCefuroxime SCephalothin SCiprofloxacin RErtapenem SGentamicin SImipenem SLevofloxacin RNitrofurantoin SPipera cillin RTetracycline STobramycin STrimethoprim/Sulfa S Result 1 Escherichia coli Comments: Greater than 100,000 colony forming units per mL (Abnormal) Urine Final report Culture,Comprehensive (Abnormal) 90-Kik-737584:41 Urinalysis, Office (93053) UA - LEUKOCYTE ESTERASE Small (Normal) UA - NITRITE Negative (Normal) URINE UROBILINGN JEANNINE TIMED 2 mg/dL (Normal) UA - PROTEIN Negative mg/dL (Normal) UA - PH 7 (Normal) UA - BLOOD Negative (Normal) UA - SPECIFIC GRAVITY 1.020 (Normal) UA - KETONES Negative mg/dL (Normal) UA - BILIRUBIN Negative (Normal) UA - GLUCOSE Negative (Normal) :07 MAGNESIUM (16509) Comments: PATIENT NOT FASTINGPERFORMED BY: [facility] Crwrmn1080 [facility] [id number] Magnesium, Serum 2.1 mg/dL (Normal) Range: 1.6-2.3 :07 POTASSIUM SERUM (43317) Comments: PATIENT NOT FASTINGPERFORMED BY: [facility] Jtobqq1838 [facility] [id number]; OV today Potassium, Serum 3.7 mmol/L (Normal) Range: 3.5-5.2 :32 Culture, Urine Comments: [facility] [address] [place], [place], [id number] CUUR See Note (Normal) Comments: Urine CultureBelow infection level. ORGANISM 1: Gram negative rodColony Count <1000 :30 CBC W/Diff, Automated Comments: [facility] [address] [place], [place], [id number] Absolute Lymph 1.01 {X10_3/ul} (Normal) Range: 0.83-4.51 Absolute Neut 2.6 {X10_3/uL} (Normal) Range: 2.0-7.7 IM GRAN % 0.200 % (Normal) Range: 0.0-0.9 Comments: IG% - Immature Granulocytes (promyelocytes, myelocytes andmetamyelocytes) > 1% indicates that a LEFT SHIFT is Present. BASO% 0.7 % (Normal) Range: 0-1 EO% 2.0 % (Normal) Range: 0-5 MONO% 8.4 % (Normal) Range: 0-10 LY% 25.1 % (Normal) Range: 19-41 NEUT% 63.6 % (Normal) Range: 47-70 MPV 11.7 fL (Normal) Range: 6.2-12.0 PLT 175 K/mm3 (Normal) Range: 150-450 RDW SD 40.8 fL (Normal) Range: 35.1-43.9 RDW CV 12.4 % (Normal) Range: 11.6-14.6 MCHC 33.2 {g/gl} (Normal) Range: 32-36 MCH 30.0 pg (Normal) Range: 27.0-32.0 MCV 90.5 fL (Normal) Range: 81-99 HCT 37.1 % (Normal) Range: 37-47 HGB 12.3 g/dL (Normal) Range: 12.0-15.0 RBC 4.10 {M/mm3} (Abnormal) Range: 4.2-5.4 WBC 4.0 K/mm3 (Abnormal) Range: 4.4-11.0 22-Rtk-77964:30 Comprehensive Metabolic Profil Comments: [facility] [address] [place], [address] GAP 9 (Normal) Range: 5-15 CO2 29.0 mmol/L (Normal) Range: 21.0-32.0 CL 107 mmol/L (Normal) Range: 98-107 K 3.3 mmol/L (Abnormal) Range: 3.5-5.1 NA 145 mmol/L (Normal) Range: 136-145 T BILI 0.70 mg/dL (Normal) Range: 0.20-1.00 ALT 27 U/L (Normal) Range: 12-78 ALK P 74 U/L (Normal) Range: 45-117 AST 14 U/L (Abnormal) Range: 15-37 CA 8.5 mg/dL (Normal) Range: 8.5-10.1 A/G 1.2 {RATIO} (Normal) Range: 0.9-2.4 GLOB 3.4 g/dL (Normal) Range: 2.2-4.2 ALB 4.0 g/dL (Normal) Range: 3.4-5.0 Comments: Please note revised Albumin AND Globulin reference rangeeffective 2017. T PROT 7.4 g/dL (Normal) Range: 6.4-8.2 BUN/CRE 22.1 {RATIO} (Abnormal) Range: 10-20 EST GFR - AA 97 mL/min (Normal) Comments: GFR Calc EST GFR 80 mL/min (Normal) Comments: Non- GFR Calc CREAT,SERUM 0.77 mg/dL (Normal) Range: 0.55-1.02 Comments: The validity of the calculated GFR AND GFRAA in patients over70 years has not been determined. Clinical correlation isessential. BUN 17 mg/dL (Normal) Range: 7-18 GLU 99 mg/dL (Normal) Range: 70-110 86-Bca-26982:30 Lipid Profile Comments: [facility] [address] [facility] [place], [place], [id number] VLDL 15 mg/dL (Normal) Range: 5-40 LDL 82 mg/dL (Normal) Range: 0-130 HDL 53 mg/dL (Normal) Comments: The drugs N-Acetylcysteine and Metamizole may falselydepress this assay. Reference Range HDL <40 mg/dL Low HDL Cholesterol HDL >or= 60 mg/dL High HDL Cholesterol TRIG 75 mg/dL (Normal) Comments: The drugs N-Acetylcysteine and Metamizole may falselydepress this assay.Serum Triglycerides Reference Interval Normal <150 mg/dL Borderline high 150 - 199 mg/dL High 200 - 499 mg/dL Very High > or = 500 mg/dL CHOL 150 mg/dL (Normal) Comments: <200 mg/dL Desirable 200-240 mg/dL Borderline >240 mg/dL High Risk :30 Vitamin D,25 Hydroxy Comments: [facility] [address] [facility] [address] [place], [place], [id number] Vitamin D 25-OH 40.8 ng/mL (Normal) Comments: Vitamin D 25(OH) Status Range Deficiency <20 ng/mL (50nmol/L) Insuffciency 20 - 30 ng/mL (50 - 75 nmol/L) Sufficiency 30 - 100 ng/mL (75 - 250 nmol/L) Toxicity >100 ng/mL (>250 nmol/L) 8-Zly-317316:00 Culture, Urine Comments: [facility] [address] [place], [address] CUUR See Note (Normal) Comments: Urine CultureORGANISM 1: Escherichia coliColony Count >100,000 Escherichia coli: REACTION Amoxacillin/Clavulanic Acid $ 4 S Ampic illin $ >=32 R Ampicillin/Sulbactam $ 8 S Cefazolin $ <=4 S Cefepime $ <=1 S Ceftriaxone $ <=1 S Ciprofloxacin $ >=4 R ESBL - Ertapenim $$$ <=0.5 S Gentamicin $ <=1 S Imipenem *NF <=0.25 S Levofloxacin $ >=8 R Nitrofuranto in $ <=16 S Piperacillin/Tazobactam $$ <=4 S Tobramycin $ <=1 S Trimethoprim/Sulfametho $ <=20 S(NF) indicates non-formulary drug at [facility]. Approval by Infectious Disease Specialist required before non-formulary drugs may be ordered and/or dispensed. 0-Kol-637078:59 CALCIFEDIOL (18757) Comments: today; PATIENT NOT FASTINGPERFORMED BY: [facility]6370 [facility] [id number] Vitamin D, 25-Hydroxy 59.8 ng/mL (Normal) Range: 30.0-100.0 Comments: Vitamin D deficiency has been defined by the [place] ofMedicine and an Endocrine Society practice guideline as alevel of serum 25-OH vitamin D less than 20 ng/mL (1,2).The Endocrine Society went on to further define vitamin Dinsufficiency as a level between 21 and 29 ng/mL (2).1. IOM ([place] of Medicine). 2010. Dietary reference intakes for calcium and D. [place]: The National Academies Press.2. Jaz MF, Chapo HOPE, Papito ROBERT, et al. Evaluation, treatment, and prevention of vitamin D deficiency: an Endocrine Society clinical practice guideline. JCEM. 2010; 96(7):1911-30. 7-Gpe-408401:59 URINE YAIR CULTURE-IDENTIFICATN Comments: PATIENT NOT FASTINGPERFORMED BY: CB [facility] Fdmqen8134 [address] RoadDublin [place] [id number] Information: SRC: ([id number]) Result 1 ECV (Abnormal) Comments: Escherichia coli, identified by an automated biochemical system.Greater than 100,000 colony forming units per mL S = Susceptible; I = Intermediate; R = Resistant P = Positiv e; N = Negative MICS are expressed in micrograms per mL Antibiotic RSLT#1 RSLT#2 RSLT#3 RSLT#4Amoxicillin/Clavulanic Acid SAmpicillin RCefepi me SCeftriaxone SCefuroxime SCephalothin SCiprofloxacin RErtapenem SGentamicin SImipenem SLevofloxacin RNitrofurantoin SPiperacillin RTetracycline STobramycin STrimethoprim/Sulfa S Urine Final report Culture,Comprehensi (Abnormal) ve 14-May-20179:34 Urinalysis, Office (70318) UA - LEUKOCYTE ESTERASE Moderate (Normal) UA - NITRITE Negative (Normal) URINE UROBILINGN JEANNINE TIMED Normal mg/dL (Normal) UA - PROTEIN Negative mg/dL (Normal) UA - PH 7.5 (Normal) UA - BLOOD Non Hemolyzed Trace (Normal) UA - SPECIFIC GRAVITY 1.010 (Normal) UA - KETONES Negative mg/dL (Normal) UA - BILIRUBIN Negative (Normal) UA - GLUCOSE Negative (Normal) 43-Opl-612057:31 URINE YAIR CULTURE-JEANNINE COL Comments: PATIENT NOT FASTINGPERFORMED BY: [facility] Oqslmv8[address] Roadbl[address] [place] [id number] Information: SRC:CARMEN COUNT (67152) Antimicrobial MIHEAD (Normal) Comments: S = Susceptible; I = Intermediate; R = Resistant P = Positive; N = Negative MICS are expressed in micrograms per mL Antibiotic RSLT#1 RSLT#2 RS Susceptibility LT#3 RSLT#4Amoxicillin/Clavulanic Acid SAmpicillin RCefepime SCeftriaxone SCefuroxime SCephalothin SCiprofloxacin RErtapenem SGentamicin SImipenem SLevofloxacin RNitrofurantoin SPipera cillin RTetracycline STobramycin STrimethoprim/Sulfa S Result 1 Escherichia coli Comments: Greater than 100,000 colony forming units per mL (Abnormal) Urine Final report Culture,Comprehensive (Abnormal) 99-Cdi-55835:59 Urinalysis, Office (06647) UA - LEUKOCYTE ESTERASE Large (Normal) UA - NITRITE Negative (Normal) URINE UROBILINGN JEANNINE TIMED Normal mg/dL (Normal) UA - PROTEIN Negative mg/dL (Normal) UA - PH 6 (Abnormal) UA - BLOOD Hemolyzed Large (Normal) UA - SPECIFIC GRAVITY 1.010 (Normal) UA - KETONES Negative mg/dL (Normal) UA - BILIRUBIN Negative (Normal) UA - GLUCOSE Negative (Normal) :12 CBC WITH MANUAL DIFF (77356) Comments: PATIENT NOT FASTINGPERFORMED BY: [facility] Hlcwzl2664 [facility] [id number] Immature Grans (Abs) 0.0 {x10E3/uL} (Normal) Range: 0.0-0.1 Immature Granulocytes 0 % (Normal) Baso (Absolute) 0.0 {x10E3/uL} (Normal) Range: 0.0-0.2 Eos (Absolute) 0.1 {x10E3/uL} (Normal) Range: 0.0-0.4 Monocytes(Absolute) 0.4 {x10E3/uL} (Normal) Range: 0.1-0.9 Lymphs (Absolute) 1.3 {x10E3/uL} (Normal) Range: 0.7-3.1 Neutrophils (Absolute) 2.7 {x10E3/uL} (Normal) Range: 1.4-7.0 Basos 1 % (Normal) Eos 2 % (Normal) Monocytes 8 % (Normal) Lymphs 29 % (Normal) Neutrophils 60 % (Normal) Platelets 186 {x10E3/uL} (Normal) Range: 150-379 RDW 12.6 % (Normal) Range: 12.3-15.4 MCHC 33.9 g/dL (Normal) Range: 31.5-35.7 MCH 29.9 pg (Normal) Range: 26.6-33.0 MCV 88 fL (Normal) Range: 79-97 Hematocrit 38.1 % (Normal) Range: 34.0-46.6 Hemoglobin 12.9 g/dL (Normal) Range: 11.1-15.9 RBC 4.31 {x10E6/uL} (Normal) Range: 3.77-5.28 WBC 4.6 {x10E3/uL} (Normal) Range: 3.4-10.8 :28 MICROALBUMIN: CREATININE RATIO Comments: PATIENT WAS FASTINGPERFORMED BY: [facility] [id number] (92152) AND (79022) Microalb/Creat Ratio 11.2 {mg/g_creat} (Normal) Range: 0.0-30.0 Microalbumin, Urine 13.2 ug/mL (Normal) Creatinine, Urine 117.4 mg/dL (Normal) :28 CALCIFEDIOL (78262) Comments: PATIENT WAS FASTINGPERFORMED BY: [facility] [id number] Vitamin D, 25-Hydroxy 68.0 ng/mL (Normal) Range: 30.0-100.0 Comments: Vitamin D deficiency has been defined by the [place] ofMedicine and an Endocrine Society practice guideline as alevel of serum 25-OH vitamin D less than 20 ng/mL (1,2).The Endocrine Society went on to further define vitamin Dinsufficiency as a level between 21 and 29 ng/mL (2).1. IOM ([place] of Medicine). 2010. Dietary reference intakes for calcium and D. [place]: The National Academies Press.2. Jaz MF, Chapo [place], Debby-Manjit ROBERT, et al. Evaluation, treatment, and prevention of vitamin D deficiency: an Endocrine Society clinical practice guideline. JCEM. 2010; 96(7):1911-30. :28 TSH (THYROID STIMULATING Comments: PATIENT WAS FASTINGPERFORMED BY: [facility] [id number] HORMONE) (17848) TSH 3.970 {uIU/mL} (Normal) Range: 0.450-4.500 :28 LIPID PANEL (02492) Comments: PATIENT WAS FASTINGPERFORMED BY: Modern MastCape [facility] Medical CenterVjznsi5034 [facility] [id number] LDL/HDL Ratio 1.4 {ratio_units} (Normal) Range: 0.0-3.2 Comments: LDL/HDL Ratio Men Women 1/2 Avg.Risk 1.0 1.5 Av g.Risk 3.6 3.2 2X Avg.Risk 6.2 5.0 3X Avg.Risk 8.0 6.1 LDL Cholesterol Calc 85 mg/dL (Normal) Range: 0-99 VLDL Cholesterol Damon 14 mg/dL (Normal) Range: 5-40 HDL Cholesterol 59 mg/dL (Normal) Triglycerides 72 mg/dL (Normal) Range: 0-149 Cholesterol, Total 158 mg/dL (Normal) Range: 100-199 :28 METABOLIC PANEL, COMPREHENSIVE Comments: PATIENT WAS FASTINGPERFORMED BY: [employer] Fijpcf3172 [facility] [id number] (91356) ALT (SGPT) 25 [iU]/L (Normal) Range: 0-32 AST (SGOT) 22 [iU]/L (Normal) Range: 0-40 Alkaline Phosphatase, S 70 [iU]/L (Normal) Range: 39-117 Bilirubin, Total 1.0 mg/dL (Normal) Range: 0.0-1.2 A/G Ratio 2.2 (Normal) Range: 1.1-2.5 Globulin, Total 2.0 g/dL (Normal) Range: 1.5-4.5 Albumin, Serum 4.3 g/dL (Normal) Range: 3.6-4.8 Protein, Total, Serum 6.3 g/dL (Normal) Range: 6.0-8.5 Calcium, Serum 8.7 mg/dL (Normal) Range: 8.7-10.3 Carbon Dioxide, Total 27 mmol/L (Normal) Range: 18-29 Chloride, Serum 104 mmol/L (Normal) Range: 97-106 Potassium, Serum 3.5 mmol/L (Normal) Range: 3.5-5.2 Sodium, Serum 144 mmol/L (Normal) Range: 136-144 BUN/Creatinine Ratio 21 (Normal) Range: 11-26 eGFR If Africn Am 102 mL/min/1.73 (Normal) eGFR If NonAfricn Am 89 mL/min/1.73 (Normal) Creatinine, Serum 0.73 mg/dL (Normal) Range: 0.57-1.00 BUN 15 mg/dL (Normal) Range: 8-27 Glucose, Serum 89 mg/dL (Normal) Range: 65-99 79-Fod-04945:28 CBC, PLATELETS & AUT DIFF Comments: PATIENT WAS FASTINGPERFORMED BY: [facility] Xjtyom5282 [facility] [id number] (86320) Immature Grans (Abs) 0.0 {x10E3/uL} (Normal) Range: 0.0-0.1 Immature Granulocytes 0 % (Normal) Baso (Absolute) 0.0 {x10E3/uL} (Normal) Range: 0.0-0.2 Eos (Absolute) 0.1 {x10E3/uL} (Normal) Range: 0.0-0.4 Monocytes(Absolute) 0.3 {x10E3/uL} (Normal) Range: 0.1-0.9 Lymphs (Absolute) 0.8 {x10E3/uL} (Normal) Range: 0.7-3.1 Neutrophils (Absolute) 2.1 {x10E3/uL} (Normal) Range: 1.4-7.0 Basos 1 % (Normal) Eos 2 % (Normal) Monocytes 10 % (Normal) Lymphs 25 % (Normal) Neutrophils 62 % (Normal) Platelets 159 {x10E3/uL} (Normal) Range: 150-379 RDW 13.7 % (Normal) Range: 12.3-15.4 MCHC 33.1 g/dL (Normal) Range: 31.5-35.7 MCH 30.1 pg (Normal) Range: 26.6-33.0 MCV 91 fL (Normal) Range: 79-97 Hematocrit 35.9 % (Normal) Range: 34.0-46.6 Hemoglobin 11.9 g/dL (Normal) Range: 11.1-15.9 RBC 3.96 {x10E6/uL} (Normal) Range: 3.77-5.28 WBC 3.3 {x10E3/uL} (Abnormal) Range: 3.4-10.8 :27 MICROALBUMIN: CREATININE RATIO Comments: PATIENT WAS FASTINGPERFORMED BY: [facility] [id number] ([id number]) AND ([id number]) Microalb/Creat Ratio 15.5 {mg/g_creat} (Normal) Range: 0.0-30.0 Microalbumin, Urine 8.6 ug/mL (Normal) Creatinine, Urine 55.6 mg/dL (Normal) :27 CALCIFEDIOL ([id number]) Comments: PATIENT WAS FASTINGPERFORMED BY: [employer] [id number] [facility] [id number] Vitamin D, 25-Hydroxy 29.7 ng/mL (Abnormal) Range: 30.0-100.0 Comments: Vitamin D deficiency has been defined by the [place] [facility] and an Endocrine Society practice guideline as alevel of serum 25-OH vitamin D less than 20 ng/mL (1,2).The Endocrine Society went on to further define vitamin Dinsufficiency as a level between 21 and 29 ng/mL (2).1. IOM ([place] of Medicine). 2010. Dietary reference intakes for calcium and D. [place]: The National Academies Press.2. Jaz MF, Chapo HOPE, Papito ROBERT, et al. Evaluation, treatment, and prevention of vitamin D deficiency: an Endocrine Society clinical practice guideline. JCEM. 2010; 96(7):1911-30. :27 LIPID PANEL (28447) Comments: PATIENT WAS FASTINGPERFORMED BY: [facility]6370 [facility] [id number] LDL/HDL Ratio 1.5 {ratio_units} (Normal) Range: 0.0-3.2 Comments: LDL/HDL Ratio Men Women 1/2 Avg.Risk 1.0 1.5 Av g.Risk 3.6 3.2 2X Avg.Risk 6.2 5.0 3X Avg.Risk 8.0 6.1 LDL Cholesterol Calc 98 mg/dL (Normal) Range: 0-99 VLDL Cholesterol Damon 14 mg/dL (Normal) Range: 5-40 HDL Cholesterol 64 mg/dL (Normal) Comments: According to ATP-III Guidelines, HDL-C >59 mg/dL is considered anegative risk factor for CHD. Triglycerides 72 mg/dL (Normal) Range: 0-149 Cholesterol, Total 176 mg/dL (Normal) Range: 100-199 38-Qav-360163:27 METABOLIC PANEL, COMPREHENSIVE Comments: PATIENT WAS FASTINGPERFORMED BY: [facility] [id number] ([id number]) ALT (SGPT) 22 [iU]/L (Normal) Range: 0-32 AST (SGOT) 21 [iU]/L (Normal) Range: 0-40 Alkaline Phosphatase, S 71 [iU]/L (Normal) Range: 39-117 Bilirubin, Total 1.0 mg/dL (Normal) Range: 0.0-1.2 A/G Ratio 1.8 (Normal) Range: 1.1-2.5 Globulin, Total 2.4 g/dL (Normal) Range: 1.5-4.5 Albumin, Serum 4.3 g/dL (Normal) Range: 3.6-4.8 Protein, Total, Serum 6.7 g/dL (Normal) Range: 6.0-8.5 Calcium, Serum 9.5 mg/dL (Normal) Range: 8.7-10.3 Carbon Dioxide, Total 26 mmol/L (Normal) Range: 18-29 Chloride, Serum 100 mmol/L (Normal) Range: 97-108 Potassium, Serum 4.0 mmol/L (Normal) Range: 3.5-5.2 Sodium, Serum 145 mmol/L (Abnormal) Range: 134-144 BUN/Creatinine Ratio 18 (Normal) Range: 11-26 eGFR If Africn Am 96 mL/min/1.73 (Normal) eGFR If NonAfricn Am 84 mL/min/1.73 (Normal) Creatinine, Serum 0.77 mg/dL (Normal) Range: 0.57-1.00 BUN 14 mg/dL (Normal) Range: 8-27 Glucose, Serum 89 mg/dL (Normal) Range: 65-99 70-Vku-096111:27 CBC, PLATELETS & AUT DIFF Comments: PATIENT WAS FASTINGPERFORMED BY: [employer] [place] [id number] Information: [id number] (92427) Immature Grans (Abs) 0.0 {x10E3/uL} Range: 0.0-0.1 (Normal) Immature Granulocytes 0 % (Normal) Baso (Absolute) 0.0 {x10E3/uL} Range: 0.0-0.2 (Normal) Eos (Absolute) 0.1 {x10E3/uL} Range: 0.0-0.4 (Normal) Monocytes(Absolute) 0.3 {x10E3/uL} Range: 0.1-0.9 (Normal) Lymphs (Absolute) 1.2 {x10E3/uL} Range: 0.7-3.1 (Normal) Neutrophils (Absolute) 2.9 {x10E3/uL} Range: 1.4-7.0 (Normal) Basos 1 % (Normal) Eos 1 % (Normal) Monocytes 6 % (Normal) Lymphs 27 % (Normal) Neutrophils 65 % (Normal) Platelets 151 {x10E3/uL} Range: 150-379 (Normal) RDW 13.7 % (Normal) Range: 12.3-15.4 MCHC 34.4 g/dL (Normal) Range: 31.5-35.7 MCH 30.0 pg (Normal) Range: 26.6-33.0 MCV 87 fL (Normal) Range: 79-97 Hematocrit 35.2 % (Normal) Range: 34.0-46.6 Hemoglobin 12.1 g/dL (Normal) Range: 11.1-15.9 RBC 4.03 {x10E6/uL} Range: 3.77-5.28 (Normal) WBC 4.5 {x10E3/uL} Range: 3.4-10.8 (Normal) : CYTOSPIN ON FLUID See Note (Normal) Comments: [facility] [address] [place], [place], [id number] 00 Comments: Patient: YARELIS BURROWS : 1955 (60/F) Acct Num: [id number] Phys: Jacky PARDO,Carmine Tompkins Unit Num: [id number] Loc: LABSPEC Specimen: [id number] Received: 04/21/16 - 1323 Spec Type: CYSPIN FL TISSUES TISSUES: COMMENT Differential diagnosis includes infection, calculi or low-grade urothelial neoplasm. CYTOLOGY GROSS Received is 60 ml of clear yello w fluid labeled with the patient's name and and designated per the requisition as urine. Submitted for cytology preparation. 04/21/16 TC:5 CPT: 00341 CYTOLOGY STUDY Slides are reviewed. The specimen consists of benign squamous cells, benign urothelial cells and urothelial cells in clusters and numerous neutrophils. DIAGNOSIS CYTOLOGY Urine for cytology (cytospin): Acute inflammation. Urothelial cells in clusters is noted. See cytology study and comment. SJ:trevor 04/22/16 HEADER OPERATION: Not noted PRE-OP DIAGNOSIS: Hematuria R31.1 TISSUE SUBMITT ED: Urine for cytology Signed Osmany Velarde 04/22/16 <signature on file> 88-Kdh-723979:17 URINE YAIR CULTURE-JEANNINE COL Comments: PATIENT NOT FASTINGPERFORMED BY: [facility] Rmkdyf4099 [facility] [id number] Information: SR[facility] [id number] COUNT ([id number]) Result 1 CNSNSS (Abnormal) Comments: Coagulase negative Staphylococcus species, not Staphylococcussaprophyticus.2,000 Colonies/mLBased on resistance to oxacillin this isolate would be resistant toall currently available beta-lactam antimic robial agents, with theexception of the newer cephalosporins with anti-MRSA activity, such asCeftaroline S = Susceptible; I = Intermediate; R = Resistant P = Positive; N = N egative MICS are expressed in micrograms per mL Antibiotic RSLT#1 RSLT#2 RSLT#3 RSLT#4Ciprofloxacin RGentamicin SLevofloxacin INitrofurantoin SOxacillin RPenicillin RRifampin STetracycline RTrimethoprim/Sulfa SVancomycin S Urine Final report Culture,Comprehens (Abnormal) tracey 60-Jdb-144684:10 Urinalysis, Office (51667) UA - LEUKOCYTE ESTERASE Negative (Normal) UA - NITRITE Negative (Normal) URINE UROBILINGN JEANNINE TIMED Normal mg/dL (Normal) UA - PROTEIN Negative mg/dL (Normal) UA - PH 7 (Normal) UA - BLOOD Non Hemolyzed Moderate (Normal) UA - SPECIFIC GRAVITY 1.010 (Normal) UA - KETONES Negative mg/dL (Normal) UA - BILIRUBIN Negative (Normal) UA - GLUCOSE Negative (Normal) 6-Smw-836732:54 URINE YAIR CULTURE-JEANNINE COL Comments: PATIENT NOT FASTINGPERFORMED BY: JUAN [facility] Akalqx2247 [facility] [id number] Information: SRC:[facility] [id number] COUNT (07120) Antimicrobial MIHEAD (Normal) Comments: S = Susceptible; I = Intermediate; R = Resistant P = Positive; N = Negative MICS are expressed in micrograms per mL Antibiotic RSLT#1 RSLT#2 RS Susceptibility LT#3 RSLT#4Amoxicillin/Clavulanic Acid RCefazolin RCefepime SCeftriaxone SCefuroxime RCephalothin RCiprofloxacin SErtapenem SGentamicin SImipenem SLevofloxacin SNitrofurantoin SPipera cillin STetracycline STobramycin STrimethoprim/Sulfa S Result 1 Citrobacter freundii Comments: Greater than 100,000 colony forming units per mL (Abnormal) Urine Final report Culture,Comprehensive (Abnormal) 4-Iik-533997:41 Urinalysis, Office (80477) UA - LEUKOCYTE ESTERASE Moderate (Normal) UA - NITRITE Negative (Normal) URINE UROBILINGN JEANNINE TIMED Normal mg/dL (Normal) UA - PROTEIN Negative mg/dL (Normal) UA - PH 7 (Normal) UA - BLOOD Non Hemolyzed Moderate (Normal) UA - SPECIFIC GRAVITY 1.015 (Normal) UA - KETONES Negative mg/dL (Normal) UA - BILIRUBIN Negative (Normal) UA - GLUCOSE Negative (Normal) :06 Aldosterone, Serum Comments: [facility] (refer to report for specific site)refer to report for address and phone number SHELBY 4374 4.8 ng/dL (Normal) Range: 0.0-30.0 64-Osb-617931:06 Magnesium Comments: [facility] [address] [place], [place], [id number] MG 2.1 mg/dL (Normal) Range: 1.8-2.4 58-Erq-622561:06 Potassium Comments: [facility] [address] [place], [id number] K 3.4 mmol/L (Abnormal) Range: 3.5-5.1 34-Lwn-828581:06 Renin, Plasma Comments: [facility] (refer to report for specific site)refer to report for address and phone number RENIN,PL 2005 0.17 {ng/mL/hr} (Normal) Comments: Adult Normal Salt Intake: Upright 1.31 - 3.95 Supine 0.15 - 2.33 Salt Excretion (Na mEq/24 hr): Na= 0 - 30 8.82 - 23.86 Na= 30 - 75 4.09 - 7.73 Na= 75 - 150 1.44 - 2.80 Na= >150 0.39 - 1.31Performed at: [facility] [employer] [id number] Director: Nomi Villeda MD, Phone: [phone] 48-Nrw-825361:06 Thyroid Stim Hormone (TSH) Comments: [facility] [address] [place], [id number] TSH 1.93 {uIU/mL} (Normal) Range: 0.358-3.74 10-Apr-20158:39 Potassium Comments: Test performed at:[facility] [address] [place] [address] K 3.6 mmol/L (Normal) Range: 3.5-5.1 43-Lrc-632741:43 Aldosterone, Urine Comments: PATIENT NOT FASTINGPERFORMED BY: [facility] Cdrvul8401 [facility] [id number] BY: [address] [id number] Aldosterone,U, Timed 10.43 {ug/24_hr} (Normal) Range: 0.00-19.00 Comments: Adult Ranges Low Sodium Intake 20.00 - 80.00 Normal Sodium Intake 0.00 - 19.00 High Sodium Intake 0.00 - 12.00 Aldosterone U,Random 2.98 ug/L (Normal) 93-Tss-297696:43 Cortisol, Urinary Free Comments: PATIENT NOT FASTINGPERFORMED BY: [employer] [id number] BY: [address] [id number] Cortisol,F,ug/24hr,U 42 {ug/24_hr} (Normal) Range: 0-50 Cortisol,F,ug/L,U 12 ug/L (Normal) 40-Dhh-805096:43 Potassium, 24 hr Urine Comments: PATIENT NOT FASTINGPERFORMED BY: [employer] [id number] BY: [address] [id number] Information: C: [id number] START 5@6AM FI MARNIE Potassium, Urine 119.4 {mmol/24_hr} Range: 25.0-125.0 (Normal) Potassium, Urine 34.1 mmol/L (Normal) Renin Activity, Plasma <0.15 {ng/mL/hr} Comments: PATIENT NOT FASTINGPERFORMED BY: [address] [id number] Information: [id number] :48 (Normal) Comments: Adult Normal Salt Intake: Upright 1.31 - 3.95 Supine 0.15 - 2. 33 . Salt Excretion (Na mEq/24 hr): Na= 0 - 30 8.82 - 23.86 Na= 30 - 75 4.09 - 7.73 Na= 75 - 150 1.44 - 2.80 Na= >150 0.39 - 1.31 :58 Aldosterone LCMS, Serum Comments: PATIENT NOT FASTINGPERFORMED BY: [address] [id number] BY: [address] [id number] Aldosterone 6.0 ng/dL (Normal) Range: 0.0-30.0 : Magnesium, Serum 2.1 mg/dL (Normal) Comments: PATIENT NOT FASTINGPERFORMED BY: [facility] CenterMpeofr5390 [facility] [id number] BY: LabJoe [place] 286917 [facility] [id number] Range: 1.6-2.6 : TSH 2.160 {uIU/mL} Comments: PATIENT NOT FASTINGPERFORMED BY: LabCoJulie Ville [id number] [facility] [id number] BY: LabCo[address] [id number] Inf ormation: [id number] 58 (Normal) Range: 0.450-4.500 3-Rge-273866:00 Comprehensive Metabolic Profil Comments: Test performed at:[facility] [address] [place], [place] [address] GAP 6 (Normal) Range: 5-15 CO2 32.0 mmol/L (Normal) Range: 21.0-32.0 CL 105 mmol/L (Normal) Range: 98-107 K 3.3 mmol/L (Abnormal) Range: 3.5-5.1 NA 143 mmol/L (Normal) Range: 136-145 T BILI 1.10 mg/dL (Abnormal) Range: 0.20-1.00 ALT 40 U/L (Normal) Range: 12-78 ALK P 82 U/L (Normal) Range: 50-136 AST 25 U/L (Normal) Range: 15-37 CA 8.8 mg/dL (Normal) Range: 8.5-10.1 A/G 1.2 {RATIO} (Normal) Range: 0.9-2.4 GLOB 3.3 g/dL (Normal) Range: 2.7-4.2 ALB 3.9 g/dL (Normal) Range: 3.4-5.0 T PROT 7.2 g/dL (Normal) Range: 6.4-8.2 BUN/CRE 25.0 {RATIO} (Abnormal) Range: 10-20 EST GFR - AA 95 mL/min (Normal) EST GFR 78 mL/min (Normal) CREAT,SERUM 0.8 mg/dL (Normal) Range: 0.6-1.0 BUN 20 mg/dL (Abnormal) Range: 7-18 GLU 92 mg/dL (Normal) Range: 70-110 7-Bep-038665:00 Lipid Profile Comments: Test performed at:[facility] [address]ms[address] [place], [place] [id number] VLDL 14 mg/dL (Normal) Range: 5-40 LDL 85 mg/dL (Normal) Range: 0-130 HDL 63 mg/dL (Normal) Comments: Reference Range HDL <40 mg/dL Low HDL Cholesterol HDL >or= 60 mg/dL High HDL Cholesterol TRIG 71 mg/dL (Normal) Range: 0-199 Comments: Serum Triglycerides Reference Interval Normal <150 mg/dL Borderline high 150 - 199 mg/dL High 200 - 499 mg/dL Very High > or = 500 mg/dL CHOL 162 mg/dL (Normal) Comments: <200 mg/dL Desirable 200-240 mg/dL Borderline >240 mg/dL High Risk 57-Pxn-16427:14 Urinalysis, Office (64688) UA - LEUKOCYTE ESTERASE Trace (Normal) UA - NITRITE Negative (Normal) URINE UROBILINGN JEANNINE TIMED Normal mg/dL (Normal) UA - PROTEIN Negative mg/dL (Normal) UA - PH 7.0 (Normal) UA - BLOOD Non Hemolyzed Trace (Normal) UA - SPECIFIC GRAVITY 1.020 (Normal) UA - KETONES Negative mg/dL (Normal) UA - BILIRUBIN Negative (Normal) UA - GLUCOSE Negative (Normal) 06-Ytm-81829:55 URINE YAIR CULTURE-JEANNINE COL Comments: PATIENT NOT FASTINGPERFORMED BY: [employer] [facility] Knvyca9214 [facility] [id number] Information: SRC: URETHRA COUNT (49815) Result 1 MUG (Normal) Comments: Mixed urogenital flora1,000 Colonies/mL Urine Culture,Comprehensive Final report (Normal) 71-Pur-122815:48 URINE YAIR CULTURE-JEANNINE COL Comments: PATIENT NOT FASTINGPERFORMED BY: [employer] Qphcor2323 [facility] [id number] Information: SRC:[facility] [id number] COUNT (07589) Antimicrobial MIHEAD (Normal) Comments: S = Susceptible; I = Intermediate; R = Resistant P = Positive; N = Negative MICS are expressed in micrograms per mL Antibiotic RSLT#1 RSLT#2 Susceptibility RSLT#3 RSLT#4Amoxicillin/Clavulanic Acid SAmpicillin RCefepime SCeftriaxone SCefuroxime SCephalothin ICiprofloxacin SErtapenem SGentamicin SImipenem SLevofloxacin SNitrofurantoin S Piperacillin RTetracycline STobramycin STrimethoprim/Sulfa S Result 1 Escherichia coli Comments: Greater than 100,000 colony forming units per mL (Abnormal) Urine Final report Culture,Comprehensive (Abnormal) 71-Mjs-052164:56 Urinalysis, Office (89440) UA - LEUKOCYTE ESTERASE Large (Normal) UA - NITRITE Negative (Normal) URINE UROBILINGN JEANNINE TIMED Normal mg/dL (Normal) UA - PROTEIN 30 mg/dL (Normal) UA - PH 7.0 (Normal) UA - BLOOD ++ (Abnormal) UA - SPECIFIC GRAVITY 1.010 (Normal) UA - KETONES Negative mg/dL (Normal) UA - BILIRUBIN Negative (Normal) UA - GLUCOSE Negative (Normal) :54 URINE YAIR CULTURE-JEANNINE COL Comments: PATIENT NOT FASTINGPERFORMED BY: [facility] Lwxeld1620 [facility] [id number] Information: SRC:[facility] [id number] COUNT (61459) Result 1 ECV (Abnormal) Comments: Escherichia coli, identified by an automated biochemical system.Greater than 100,000 colony forming units per mL S = Susceptible; I = Intermediate; R = Resistant P = Posi tive; N = Negative MICS are expressed in micrograms per mL Antibiotic RSLT#1 RSLT#2 RSLT#3 RSLT#4Amoxicillin/Clavulanic Acid SAmpicillin SCef epime SCeftriaxone SCefuroxime SCephalothin SCiprofloxacin SErtapenem SGentamicin SImipenem SLevofloxacin SNitrofurantoin SPiperacillin STetracycline STobramycin STrimethoprim/Sulfa S Urine Final report Culture,Comprehensi (Abnormal) ve 7-Gzq-549349:18 Urinalysis, Office (75027) UA - LEUKOCYTE ESTERASE Large (Normal) UA - NITRITE Negative (Normal) URINE UROBILINGN JEANNINE TIMED Normal mg/dL (Normal) UA - PROTEIN 100 mg/dL (Normal) UA - PH 7 (Normal) UA - BLOOD Hemolyzed Large (Normal) UA - SPECIFIC GRAVITY 1.025 (Normal) UA - KETONES Negative mg/dL (Normal) UA - BILIRUBIN Negative (Normal) UA - GLUCOSE Negative (Normal) 75-Zku-892658:40 POTASSIUM SERUM (82925) Comments: today; PATIENT NOT FASTINGPERFORMED BY: [facility] Gwwnah2423 [facility] [id number] Information: [id number] Potassium, Serum 3.9 mmol/L (Normal) Range: 3.5-5.2 8-Myw-315578:10 Comprehensive Metabolic Profil Comments: Test performed at:[facility] [address] [place], [place] [address] GAP 4 (Abnormal) Range: 5-15 CO2 31.0 mmol/L (Normal) Range: 21.0-32.0 CL 104 mmol/L (Normal) Range: 98-107 K 3.3 mmol/L (Abnormal) Range: 3.5-5.1 NA 139 mmol/L (Normal) Range: 136-145 T BILI 1.20 mg/dL (Normal) Range: 0.00-4.00 ALT 42 U/L (Normal) Range: 12-78 ALK P 94 U/L (Normal) Range: 50-136 AST 22 U/L (Normal) Range: 15-37 CA 8.9 mg/dL (Normal) Range: 8.5-10.1 A/G 1.2 {RATIO} (Normal) Range: 0.9-2.4 GLOB 3.3 g/dL (Normal) Range: 2.7-4.2 ALB 4.1 g/dL (Normal) Range: 3.4-5.0 T PROT 7.4 g/dL (Normal) Range: 6.4-8.2 BUN/CRE 16.3 {RATIO} (Normal) Range: 10-20 EST GFR - AA 95 mL/min (Normal) EST GFR 78 mL/min (Normal) CREAT,SERUM 0.8 mg/dL (Normal) Range: 0.6-1.0 BUN 13 mg/dL (Normal) Range: 7-18 GLU 89 mg/dL (Normal) Range: 70-110 :10 Lipid Profile Comments: Test performed at:[facility] [address] [place], [place] [address] VLDL 19 mg/dL (Normal) Range: 5-40 LDL 97 mg/dL (Normal) Range: 0-130 HDL 54 mg/dL (Normal) Comments: Reference Range HDL <40 mg/dL Low HDL Cholesterol HDL >or= 60 mg/dL High HDL Cholesterol TRIG 94 mg/dL (Normal) Range: 0-199 Comments: Serum Triglycerides Reference Interval Normal <150 mg/dL Borderline high 150 - 199 mg/dL High 200 - 499 mg/dL Very High > or = 500 mg/dL CHOL 170 mg/dL (Normal) Comments: <200 mg/dL Desirable 200-240 mg/dL Borderline >240 mg/dL High Risk :15 Magnesium (43118) Comments: today; PATIENT NOT FASTINGPERFORMED BY: [facility]IQC[facility] Medical CenterAsvqnw5420 [facility] [id number] Magnesium, Serum 2.2 mg/dL (Normal) Range: 1.6-2.6 :15 Potassium Serum (04498) Comments: today; PATIENT NOT FASTINGPERFORMED BY: [employer] Ivguov0610 [facility] [id number] Information: [id number] Potassium, Serum 3.8 mmol/L (Normal) Range: 3.5-5.2 :48 Urinalysis, Office (66019) UA - LEUKOCYTE ESTERASE Negative (Normal) UA - NITRITE Negative (Normal) URINE UROBILINGN JEANNINE TIMED Normal mg/dL (Normal) UA - PROTEIN Negative mg/dL (Normal) UA - PH 7.0 (Normal) UA - BLOOD Non Hemolyzed Trace (Normal) UA - SPECIFIC GRAVITY 1.010 (Normal) UA - KETONES Negative mg/dL (Normal) UA - BILIRUBIN Negative (Normal) UA - GLUCOSE Negative (Normal) :29 URINE YAIR CULTURE-JEANNINE COL Comments: PATIENT NOT FASTINGPERFORMED BY: JUAN [facility] Affwyg[address] [place] [id number] Information: SRC:UR [id number]; will review at appt. today COUNT (67888) Result 1 MUG (Normal) Comments: Mixed urogenital flora1,000 Colonies/mL Urine Culture,Comprehensive Final report (Normal) 18-Qhk-73560:09 Urinalysis, Office (15501) UA - LEUKOCYTE ESTERASE Negative (Normal) UA - NITRITE Negative (Normal) URINE UROBILINGN JEANNINE TIMED Normal mg/dL (Normal) UA - PROTEIN Negative mg/dL (Normal) UA - PH 7 (Normal) UA - BLOOD non-hemolyzed trace (Normal) UA - SPECIFIC GRAVITY 1.010 (Normal) UA - KETONES Negative mg/dL (Normal) UA - BILIRUBIN Negative (Normal) UA - GLUCOSE Negative (Normal) :17 CBCD ALC 1.07 {X10_3/ul} (Normal) Range: 0.83-4.51 ANC 3.0 {X10_3/uL} (Normal) Range: 2.0-7.7 IG% 0.200 % (Normal) Range: 0.0-0.9 Comments: IG% - Immature Granulocytes (promyelocytes, myelocytes andmetamyelocytes) > 1% indicates that a LEFT SHIFT is Present. B% 0.9 % (Normal) Range: 0-1 E% 1.7 % (Normal) Range: 0-5 M% 8.7 % (Normal) Range: 0-10 L% 23.3 % (Normal) Range: 19-41 N% 65.2 % (Normal) Range: 47-70 MPV 11.0 fL (Normal) Range: 6.2-12.0 PLT 163 K/mm3 (Normal) Range: 150-450 RDWSD 37.2 fL (Normal) Range: 35.1-43.9 RDWCV 12.0 % (Normal) Range: 11.6-14.6 MCH 30.7 pg (Normal) Range: 27.0-32.0 MCHC 34.7 {g/gl} (Normal) Range: 32-36 MCV 88.3 fL (Normal) Range: 81-99 HCT 35.4 % (Abnormal) Range: 37-47 HGB 12.3 g/dL (Normal) Range: 12.0-15.0 RBC 4.01 {M/mm3} (Abnormal) Range: 4.2-5.4 WBC 4.6 K/mm3 (Normal) Range: 4.4-11.0 :17 CMP GAP 6 (Normal) Range: 5-15 CO2 27.0 mmol/L (Normal) Range: 21.0-32.0 CL 108 mmol/L (Abnormal) Range: 98-107 K 3.3 mmol/L (Abnormal) Range: 3.5-5.1 NA 141 mmol/L (Normal) Range: 136-145 BIT 0.70 mg/dL (Normal) Range: 0.00-1.00 ALK 74 U/L (Normal) Range: 45-117 ALT 41 U/L (Normal) Range: 12-78 AST 21 U/L (Normal) Range: 15-37 CA 8.6 mg/dL (Normal) Range: 8.5-10.1 AG 1.3 {RATIO} (Normal) Range: 0.9-2.4 GLOB 3.2 g/dL (Normal) Range: 2.7-4.2 ALB 4.0 g/dL (Normal) Range: 3.4-5.0 TPROT 7.2 g/dL (Normal) Range: 6.4-8.2 BC 18.6 {RATIO} (Normal) Range: 10-20 GFRAA 110 mL/min (Normal) GFR 91 mL/min (Normal) CREAT 0.7 mg/dL (Normal) Range: 0.6-1.0 BUN 13 mg/dL (Normal) Range: 7-18 GLU 98 mg/dL (Normal) Range: 70-110 :17 LIPID LDL 97 mg/dL (Normal) Range: 0-130 VLDL 15 mg/dL (Normal) Range: 5-40 HDL 57 mg/dL (Normal) Comments: Reference RangeHDL <40 mg/dL Low HDL CholesterolHDL >or= 60 mg/dL High HDL Cholesterol TRIG 76 mg/dL (Normal) Range: 0-199 Comments: Serum Triglycerides Reference IntervalNormal <150 mg/dLBorderline high 150 - 199 mg/dLHigh 200 - 499 mg/ dLVery High > or = 500 mg/dL CHOL 169 mg/dL (Normal) Comments: <200 mg/dL Qcjzcbhtx190-867 mg/dL Borderline>240 mg/dL High Risk :33 Lipid Panel (27048) Comments: PATIENT WAS FASTINGPERFORMED BY: [place] [id number] [facility] [id number] Information: [id number] LDL/HDL Ratio 1.6 {ratio_units} (Normal) Range: 0.0-3.2 LDL Cholesterol Calc 96 mg/dL (Normal) Range: 0-99 VLDL Cholesterol Damon 12 mg/dL (Normal) Range: 5-40 HDL Cholesterol 59 mg/dL (Normal) Comments: According to ATP-III Guidelines, HDL-C >59 mg/dL is considered anegative risk factor for CHD. Triglycerides 59 mg/dL (Normal) Range: 0-149 Cholesterol, Total 167 mg/dL (Normal) Range: 100-199 8-Azv-653914:33 HEPATIC FUNCTION PANEL Comments: PATIENT WAS FASTINGPERFORMED BY: [place] [id number] [facility] [id number] (49406) ALT (SGPT) 36 [iU]/L (Abnormal) Range: 0-32 AST (SGOT) 29 [iU]/L (Normal) Range: 0-40 Alkaline Phosphatase, S 76 [iU]/L (Normal) Range: 39-117 Bilirubin, Direct 0.20 mg/dL (Normal) Range: 0.00-0.40 Bilirubin, Total 0.8 mg/dL (Normal) Range: 0.0-1.2 Albumin, Serum 4.1 g/dL (Normal) Range: 3.5-5.5 Protein, Total, Serum 6.6 g/dL (Normal) Range: 6.0-8.5 :27 METABOLIC PANEL, Comments: health screening labs; PATIENT WAS FASTINGPERFORMED BY: [place] [id number] [facility] [id number] Information: [id number] COMPREHENSIVE (72952) ALT (SGPT) 19 [iU]/L (Normal) Range: 0-32 AST (SGOT) 16 [iU]/L (Normal) Range: 0-40 Alkaline Phosphatase, S 72 [iU]/L (Normal) Range: 42-107 Bilirubin, Total 0.6 mg/dL (Normal) Range: 0.0-1.2 A/G Ratio 1.8 (Normal) Range: 1.1-2.5 Globulin, Total 2.4 g/dL (Normal) Range: 1.5-4.5 Albumin, Serum 4.4 g/dL (Normal) Range: 3.5-5.5 Protein, Total, Serum 6.8 g/dL (Normal) Range: 6.0-8.5 Calcium, Serum 8.9 mg/dL (Normal) Range: 8.7-10.2 Carbon Dioxide, Total 26 mmol/L (Normal) Range: 19-28 Chloride, Serum 104 mmol/L (Normal) Range: 97-108 Potassium, Serum 3.9 mmol/L (Normal) Range: 3.5-5.2 Sodium, Serum 143 mmol/L (Normal) Range: 134-144 BUN/Creatinine Ratio 21 (Normal) Range: 9-23 eGFR If Africn Am 91 mL/min/1.73 (Normal) eGFR If NonAfricn Am 79 mL/min/1.73 (Normal) Creatinine, Serum 0.82 mg/dL (Normal) Range: 0.57-1.00 BUN 17 mg/dL (Normal) Range: 6-24 Glucose, Serum 88 mg/dL (Normal) Range: 65-99 :27 LIPID PANEL (95020) Comments: PATIENT WAS FASTINGPERFORMED BY: [id number] [id number] LDL/HDL Ratio 3.7 {ratio_units} (Abnormal) Range: 0.0-3.2 HDL Cholesterol 54 mg/dL (Normal) Comments: According to ATP-III Guidelines, HDL-C >59 mg/dL is considered anegative risk factor for CHD. LDL Cholesterol Calc 198 mg/dL (Abnormal) Range: 0-99 VLDL Cholesterol Damon 15 mg/dL (Normal) Range: 5-40 Triglycerides 74 mg/dL (Normal) Range: 0-149 Cholesterol, Total 267 mg/dL (Abnormal) Range: 100-199 :30 ABDOMEN/PELVIS WITHOUT CONT Radiology Report See Note (Normal) Comments: PROCEDURE: CT ABDOMEN AND PELVIS WITHOUT CONTRAST REASON FOR EXAM: Female, 57 years old. Low back pain and left flankpain. RADIATION DOSAGE (If Supplied By Facility): CTDIvol = ( 9.56 ) mGy, DLP=( 462.57 ) mGycm TECHNIQUE: Transaxial images were obtained from the dome of thediaphragmto the symphysis pubis without oral contrast, and without intravenouscontrast. Multiplanar coronal and sagittal images were reformatted. COMPARISON: None. FINDINGS:There is minimal degree of dependent bibasilar atelectasis. Thevisualizedportions of the heart are within normal limits. Normal liver. There are m ultiple gallstones. Normal spleen. Normalpancreas. Normal bilateral adrenal glands. The largest measures 5.4 mm. There is a mild degree of left sidedhydronephrosis. Multiple calcifications are seen in the left kidney.Thelargest is in the inferior pole and measures 1.1-cm. There are twoadjacentcalculi in the proximal portion of the left ureter causing obstruction.Each measure 3.8-mm. There is evid ence of left periureteric stranding. There is a small hiatal hernia. Normal small intestine. Normal colon.The patient is status-post appendectomy. There is diffuse atherosclerotic calcification of the abdominal aorta,without a demonstrated aneurysm. Normal inferior vena cava. Normalretroperitoneum. Normal urinary bladder. There is absence of the uterus consistent with aprior hysterectomy. There i s a small umbilical hernia containing fat. Normal osseousstructures. IMPRESSION:Bilateral intrarenal calculi.There are two adjacent 3.8-mm calculi in the proximal portion of the leftureter causing left hydronephrosis and left hydroureter.Gallstones. Signed:Armen Slade M.D.January 18, 2013 at 10:24:09 AM [id number] Signed GP/GP If you are the referring physician and would like to consult with theradiologist who provided this interpretation, please contact [place] Thomas at [phone]. If this radiologist is unavailable, youwill be directed to another radiologist t o assist. If you are a patient with a question regarding this report, pleasecontactyour referring physician directly. Professional Interpretation Provided By: [employer], Phone ,Fax These documents contain legally protected and confidential healthinformation intended only for the use of the individual or entity namedabove. If you are not the intended recipient, you are here by notifiedthatany disclosure, copying, distribution, or other use of these documents isstrictly prohibited. If you have received this information in error,pleasenotify the sender immediately and arrang e for the return or destructionofthese documents. Dictated on 01/18/13 0938 by Tony Slade MDranscribed on 01/18/13 1026 by ITS IMPORTSign by Armen Slade MD on 01/18/13 1027 Sign b y: Armen Slade MD 72-Jgr-29867:08 Metabolic Panel, Comments: today; PATIENT NOT FASTINGPERFORMED BY: [facility]uyw1462 [facility] [id number] Information: [id number] Comprehensive ([id number]) ALT (SGPT) 29 [iU]/L (Normal) Range: 0-32 AST (SGOT) 27 [iU]/L (Normal) Range: 0-40 Alkaline Phosphatase, S 74 [iU]/L (Normal) Range: 25-150 Bilirubin, Total 0.6 mg/dL (Normal) Range: 0.0-1.2 A/G Ratio 2.0 (Normal) Range: 1.1-2.5 Globulin, Total 2.3 g/dL (Normal) Range: 1.5-4.5 Albumin, Serum 4.6 g/dL (Normal) Range: 3.5-5.5 Protein, Total, Serum 6.9 g/dL (Normal) Range: 6.0-8.5 Calcium, Serum 9.4 mg/dL (Normal) Range: 8.7-10.2 Carbon Dioxide, Total 26 mmol/L (Normal) Range: 20-32 Chloride, Serum 102 mmol/L (Normal) Range: 97-108 Potassium, Serum 3.9 mmol/L (Normal) Range: 3.5-5.2 Sodium, Serum 143 mmol/L (Normal) Range: 134-144 BUN/Creatinine Ratio 18 (Normal) Range: 9-23 eGFR If Africn Am 89 mL/min/1.73 (Normal) eGFR If NonAfricn Am 77 mL/min/1.73 (Normal) Creatinine, Serum 0.84 mg/dL (Normal) Range: 0.57-1.00 BUN 15 mg/dL (Normal) Range: 6-24 Glucose, Serum 102 mg/dL (Abnormal) Range: 65-99 :19 Urinalysis, Office (73813) UA - BILIRUBIN Negative (Normal) UA - BLOOD Non Hemolyzed Moderate (Normal) UA - GLUCOSE Negative (Normal) UA - KETONES Negative mg/dL (Normal) UA - LEUKOCYTE ESTERASE Small (Normal) UA - NITRITE Negative (Normal) UA - PH 7.0 (Normal) UA - PROTEIN Negative mg/dL (Normal) UA - SPECIFIC GRAVITY 1.015 (Normal) URINE UROBILINGN JEANNINE TIMED Normal mg/dL (Normal) :45 CMP GAP 9 (Normal) Range: 5-15 CO2 30.0 mmol/L (Normal) Range: 21.0-32.0 CL 104 mmol/L (Normal) Range: 98-107 K 3.8 mmol/L (Normal) Range: 3.5-5.1 NA 143 mmol/L (Normal) Range: 136-145 BIT 0.90 mg/dL (Normal) Range: 0.00-1.00 ALT 36 U/L (Normal) Range: 12-78 ALK 63 U/L (Normal) Range: 50-136 AST 17 U/L (Normal) Range: 15-37 CA 8.3 mg/dL (Abnormal) Range: 8.5-10.1 AG 1.2 {RATIO} (Normal) Range: 0.9-2.4 GLOB 3.3 g/dL (Normal) Range: 2.7-4.2 ALB 4.0 g/dL (Normal) Range: 3.4-5.0 TPROT 7.3 g/dL (Normal) Range: 6.4-8.2 BC 18.8 {RATIO} (Normal) Range: 10-20 GFRAA 96 mL/min (Normal) GFR 79 mL/min (Normal) CREAT 0.8 mg/dL (Normal) Range: 0.6-1.0 BUN 15 mg/dL (Normal) Range: 7-18 GLU 98 mg/dL (Normal) Range: 70-110 12-Apr-20128:45 LIPID VLDL 22 mg/dL (Normal) Range: 5-40 LDL 165 mg/dL (Abnormal) Range: 0-130 HDL 53 mg/dL (Normal) Comments: Reference Range HDL <40 mg/dL Low HDL Cholesterol HDL >or= 60 mg/dL High HDL Cholesterol TRIG 109 mg/dL (Normal) Comments: Serum Triglycerides Reference Interval Normal <150 mg/dL Borderline high 150 - 199 mg/dL High 200 - 499 mg/dL Very High > or = 500 mg/dL CHOL 240 mg/dL (Abnormal) Comments: <200 mg/dL Desirable 200-240 mg/dL Borderline >240 mg/dL High Risk 1-Yom-730550:26 BILAT SCRN DIGITAL & CAD Radiology Report See Note (Normal) Comments: Exam Number: [id number] AMMOGRAPHY - BILATERAL SCREENING INDICATION:Routine annual screening examination. PERTINENT HISTORY:Non-contributory. TECHNIQUE:Digital examination. Mediolateral oblique (MLO) and craniocaudad (CC) views of both breasts were obtained. CAD was performed on this study. COMPARISON:July 17, 2008 and July 30, 2009 FINDINGS:The breast is extremely dense and diffusely nodular. Th e degree of density may decrease the sensitivity of the mammographic study. There is no skin thickening or retraction or architectural distortion. No cluster of suspicious microcalcifications are seen i n. There are numerous areas of asymmetric parenchymal density without a dominant or spiculated mass being identified. If there is a suspicious palpable abnormality common mammogram in one year is recomm ended. No other significant abnormalities are identified. IMPRESSION:Normal bilateral screening mammogram. Yearly follow-up recommended. ASSESSMENT CATEGORY:Category 2: Benign finding(s) Approximately 1 0% of breast cancers are not detected by mammography. A normal mammogram should not delay biopsy of a clinically suspicious abnormality. This addendum is being created for the purpose of attaching a Res ultCode to this exam. ADDENDUM: [id number] HPBI/MDS Reported By: DAVION BA M.D. 6-Wzr-221990:26 DEXA BONE DENSITY STUDY (HP) Radiology Report See Note (Normal) Comments: Exam Number: [id number] LINICAL:This is a 55-year-old female patient for postmenopausal screening. EXAMINATION:DUAL ENERGY X-RAY ABSORPTIOMETRY / DEXA. TECHNIQUE:Bone Density Measurements (BMD) of lumbar spine and bilateral hips were obtained using a Advizzer scanner.. COMPARISON:Comparison is made with prior examination dated July 17, 2008. FINDINGS: Lumbar Spine (L1-L4): g/cm2 (0.8 71) / T-score (-2.6) / Z-score (-2.0)Left Femur Total: g/cm2 (0.918) / T-score (-0.7) / Z-score (-0.2)Right Femur Total: g/cm2 (0.922) / T- score (-0.7) / Z-score (-0.2) Additional Abnormal T-Scores: None. Since prior examination, there has been an improvement of 2.2% in the bone density. IMPRESSION:The patient is considered osteopenic, as outlined above, according to World Health Organi zation (WHO) criteria. Fracture risk is moderate. Reference Information:The T-score is the number of standard deviations above or below the standard which is normal for young adults at their peak bone mineral density. The World Health Organization (WHO) interprets the T-scores as follows: Above -1 Normal bone densityBetween -1 and -2.5 OsteopeniaEqual to / or below -2.5 Osteoporosis As a practical clinical guideline, osteopenia may be graded as follows:Mild -1 through -1.5Moderate -1.6 through -2.0Severe -2.1 through - 2.4 The Z-score is the number of standard deviatio ns above or below age-matched controls. A Z-score of less than -1.5 would be considered abnormal. References:1. NIH Osteoporosis and Related Bone Diseases http://www.osteo.org2. International Society for Clinical Densitometry http://www.iscd.org3. National Osteoporosis Foundation http://www.nof.org Reported By: ARMEN SLADE 0-Bds-532695:40 CBC MCH 32.1 pg (Abnormal) Range: 27.0-32.0 MCHC 35.5 g/dL (Normal) Range: 32-36 MCV 90.4 fL (Normal) Range: 81-99 MPV 8.9 fL (Normal) Range: 6.5-12.0 PLT 190 K/mm3 (Normal) Range: 150-450 RDW 12.7 % (Normal) Range: 11.6-14.6 HCT 35.0 % (Abnormal) Range: 37-47 HGB 12.4 g/dL (Normal) Range: 12.0-16.0 RBC 3.87 {M/mm3} (Abnormal) Range: 4.2-5.4 WBC 4.8 K/mm3 (Normal) Range: 4.4-11.0 :40 PRO TIME INR 1.1 (Normal) PROTIME 11.8 s (Abnormal) Range: 9.1-11.7 :40 PTT 29.1 s (Normal) Range: 25.2-36.2 87-Aoz-078626:10 Urinalysis, Office (25416) UA - LEUKOCYTE ESTERASE Trace (Normal) UA - NITRITE Negative (Normal) URINE UROBILINGN JEANNINE TIMED 2 mg/dL (Normal) UA - PROTEIN Negative mg/dL (Normal) UA - PH 6.5 (Normal) UA - BLOOD Negative (Normal) UA - SPECIFIC GRAVITY 1.005 (Normal) UA - KETONES Negative mg/dL (Normal) UA - BILIRUBIN Negative (Normal) UA - GLUCOSE Negative (Normal) 34-Hmt-721076:04 URINE YAIR CULTURE-JEANNINE COL Comments: PATIENT NOT FASTINGPERFORMED BY: [facility] [id number] [facility] [id number] Information: SRC: URINE COUNT (36460) Antimicrobial MIHEAD (Normal) Comments: S = Susceptible; I = Intermediate; R = Resistant P = Positive; N = NegativeMICS are expressed in micrograms per mLAntibiotic RSLT#1 RSLT#2 RSLT#3 RSLT#4Am oxicillin/Cl Susceptibility avulanic Acid IAmpicillin RCefepime SCeftriaxone SCefuroxime SCephalothin ICiprofloxacin SESBL NGentamicin SImipenem SLevofloxacin SNitrofurantoin SPiperacillin/Tazobactam Alexy tracycline STobramycin STrimethoprim/Sulfa S Result 1 Escherichia coli Comments: Greater than 100,000 colony forming units per mL (Normal) Urine Final report (Normal) Culture,Comprehensive 38-Xwq-023623:03 Urinalysis, Office (28026) UA - LEUKOCYTE ESTERASE Small (Normal) UA - NITRITE Negative (Normal) URINE UROBILINGN JEANNINE TIMED Normal mg/dL (Normal) UA - PROTEIN Negative mg/dL (Normal) UA - PH 7.0 (Normal) UA - BLOOD Non Hemolyzed Moderate (Normal) Comments: Large UA - SPECIFIC GRAVITY 1.010 (Normal) UA - KETONES Negative mg/dL (Normal) UA - BILIRUBIN Negative (Normal) UA - GLUCOSE Negative (Normal) 5-Gor-270325:19 Urinalysis, Office (20039) UA - LEUKOCYTE ESTERASE Negative (Normal) UA - NITRITE Negative (Normal) URINE UROBILINGN JEANNINE TIMED 2 mg/dL (Normal) UA - PROTEIN Negative mg/dL (Normal) UA - PH 7.0 (Normal) UA - BLOOD Negative (Normal) UA - SPECIFIC GRAVITY 1.010 (Normal) UA - KETONES Negative mg/dL (Normal) UA - BILIRUBIN Negative (Normal) UA - GLUCOSE Negative (Normal) 36-Xvk-882530:04 Urinalysis, Office (38103) UA - BILIRUBIN Negative (Normal) UA - BLOOD Non Hemolyzed Moderate (Normal) UA - GLUCOSE Negative (Normal) UA - KETONES Negative mg/dL (Normal) UA - LEUKOCYTE ESTERASE Trace (Normal) UA - NITRITE Negative (Normal) UA - PH 6.0 (Normal) UA - PROTEIN Negative mg/dL (Normal) UA - SPECIFIC GRAVITY 1.020 (Normal) URINE UROBILINGN JEANNINE TIMED 2 mg/dL (Normal) Plan of Care Name Dates Details Instructions Elevated blood pressure reading : Reviewed Lab Indication: Elevated blood pressure reading Hypertension : Reviewed Diagnostic Tests Indication: Hypertension Chest pain : Reviewed Lab Indication: Chest pain Chest pain : Reviewed 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 Indication: Chest pain Chest pain : Reviewed Diagnostic Tests Indication: Chest pain Nonsmoker : Eprescribed prescriptions (G8553) Indication: Nonsmoker Chest pain on breathing : Follow up if no improvement or if symptoms worsen Indication: Chest pain on breathing Nonsmoker : Eprescribed prescriptions (G8553) Indication: Nonsmoker Numerous moles : Follow up in 3 months Indication: Numerous moles Nonsmoker : Eprescribed prescriptions (G8553) Indication: Nonsmoker Nonsmoker : Follow up in 3 months Indication: Nonsmoker Hypercholesteremia : Eprescribed prescriptions (G8553) Indication: Hypercholesteremia Hematuria : Follow up in 4 months Indication: Hematuria Osteoporosis : Follow up in 3 months Indication: Osteoporosis Hematuria : Eprescribed prescriptions (G8553) Indication: Hematuria Hematuria : Eprescribed prescriptions (G8553) Indication: Hematuria Bilateral hearing loss due to cerumen impaction : Follow up in 3 months Indication: Bilateral hearing loss due to cerumen impaction Hypercholesteremia : Eprescribed prescriptions (G8553) Indication: Hypercholesteremia Obstructive sleep apnea on CPAP : Follow up in 3 months Indication: Obstructive sleep apnea on CPAP BMI 29.0-29.9,adult : Eprescribed prescriptions (G8553) Indication: BMI 29.0-29.9,adult Osteoporosis : Follow up if no improvement or if symptoms worsen Indication: Osteoporosis UTI symptoms : Eprescribed prescriptions (G8553) Indication: UTI symptoms Hypercholesteremia : Eprescribed prescriptions (G8553) Indication: Hypercholesteremia Hypercholesteremia : Reviewed Diagnostic Tests Indication: Hypercholesteremia Hypercholesteremia : Follow up in 6 months Indication: Hypercholesteremia Headache : Trigger Finger: finger Indication: Headache Headache : Eprescribed prescriptions (G8553) Indication: Headache Acute conjunctivitis : Follow up if no improvement or if symptoms worsen Indication: Acute conjunctivitis Acute conjunctivitis : *Conjunctivitis Education Indication: Acute conjunctivitis Hematuria : Eprescribed prescriptions (G8553) Indication: Hematuria Hematuria : Follow up if no improvement or if symptoms worsen Indication: Hematuria Hypokalemia : Blood (Serum) Potassium Test: blood Indication: Hypokalemia Hypokalemia : Eprescribed prescriptions (G8553) Indication: Hypokalemia Abnormal EKG : Eprescribed prescriptions (G8553) Indication: Abnormal EKG Encounter for immunization : Shingles Vaccine Education 2005 Indication: Encounter for immunization Hypercholesteremia : High Cholesterol (Hypercholesterolemia) *: cardiovascular health Indication: Hypercholesteremia UTI symptoms : Follow up 17 days Indication: UTI symptoms Otitis externa : Follow up if no improvement or if symptoms worsen Indication: Otitis externa Otitis externa : *Otitis Externa Education Indication: Otitis externa Urinary frequency : follow up for recheck urine 1 week after complete antibiotic Indication: Urinary frequency Urinary frequency : *UTI treatment Indication: Urinary frequency Urinary frequency : Water in diet, brief version Indication: Urinary frequency Hypercholesteremia : Health Maintenance: Controlling Cholesterol: blood vessels Indication: Hypercholesteremia Hypercholesteremia : Eprescribed prescriptions (G8553) Indication: Hypercholesteremia Sinusitis, acute : *URI Symptoms Indication: Sinusitis, acute Sinusitis, acute : *Antibiotic Usage Education - Female Indication: Sinusitis, acute Trigger thumb, right : *Trigger thumb Injections Indication: Trigger thumb, right Urinary frequency : Follow up if no improvement or if symptoms worsen Indication: Urinary frequency History of kidney stones : follow up for recheck urine 1 week after complete antibiotic Indication: History of kidney stones Urinary frequency : *UTI treatment Indication: Urinary frequency Urinary frequency : Water in diet, brief version Indication: Urinary frequency Hypercholesteremia : *Cholesterol - Medication Side Effects Indication: Hypercholesteremia Well woman exam : Pelvic/Bimanual/Rectal/Breast Exam Indication: Well woman exam Trigger thumb, right : thumb injection Indication: Trigger thumb, right Nausea alone : Follow up in 2 days with [facility] Indication: Nausea alone Wheezing : Follow up if no improvement or if symptoms worsen Indication: Wheezing Bronchitis : *URI Treatment Indication: Bronchitis Bronchitis : *URI Symptoms Indication: Bronchitis Bronchitis : *Antibiotic Usage Education - Female Indication: Bronchitis Contact dermatitis due to poison susan : Poison Susan Education Indication: Contact dermatitis due to poison susan Urinary tract infection, site not specified : *Antibiotic Usage Education - Female Indication: Urinary tract infection, site not specified Planned Observations Metabolic Panel, Comprehensive (10728)Indication: Hypercholesteremia On: 70-Rlz-96598:58 Request LIPID PANEL (62111)Indication: Hypercholesteremia On: :55 Request D-Dimer (21006)Indication: Chest pain on breathing On: 10-Foe-969759:20 Request Comments: STAT AODXY-LLWSRTERGDW-QODUL (08520)Indication: Elevated liver enzymes On: 19-Jul-20189:16 Request Parathyroid Hormone-related Peptide (PTH-rP) (99588)Indication: Hypercalcemia On: :42 Request CBC, Platelets & Auto Diff (29027)Indication: Headache On: 0-Syo-145238:55 Request Lipid Panel (88724)Indication: Headache On: 3-Onp-712518:53 Request TSH (96921)Indication: Headache On: 4-Xlj-611566:52 Request URINALYSIS, W/ MICRO (73827)Indication: Hematuria On: 8-Qis-583225:52 Request CALCIFEDIOL (18994)Indication: Osteoporosis On: :02 Request Comments: Aug 2017 CBC, Platelets & Auto Diff (95677)Indication: GERD (gastroesophageal reflux disease) On: :01 Request Comments: Aug 2017 Metabolic Panel, Comprehensive (13581)Indication: Hypercholesteremia On: : Request Comments: Aug 2017 Lipid Panel (57872)Indication: Hypercholesteremia On: : Request Comments: Aug 2017 LIPID PANEL (89002)Indication: Hypercholesteremia On: :39 Request Comments: in six months (approximately) METABOLIC PANEL, COMPREHENSIVE (79993)Indication: Hypercholesteremia On: :39 Request Aldosterone,24-Hour Urine (82860)Indication: Hypokalemia On: :37 Request Comments: pt to take salt load by salt food POTASSIUM SERUM (47729)Indication: Hypokalemia On: :34 Request POTASSIUM SERUM (96958)Indication: Hypokalemia On: :40 Request MAGNESIUM (38869)Indication: Hypokalemia On: :55 Request POTASSIUM SERUM (87624)Indication: Hypokalemia On: :54 Request Comments: 2 weeks ALDOSTERONE (35690)Indication: Hypokalemia On: :46 Request RENIN (35587)Indication: Hypokalemia On: :46 Request TSH (THYROID STIMULATING HORMONE) (00348)Indication: Hypokalemia On: :45 Request POTASSIUM URINE (71924)Indication: Hypokalemia On: :44 Request Comments: 24 hour urine CORTISOL FREE (09300)Indication: Hypokalemia On: :44 Request Comments: 24 hour urine Aldosterone,24-Hour Urine (29751)Indication: Hypokalemia On: :43 Request POTASSIUM SERUM (39580)Indication: Hypokalemia On: :22 Request METABOLIC PANEL, COMPREHENSIVE (64185)Indication: Hypercholesteremia On: :22 Request Comments: in six months (approximately) LIPID PANEL (09727)Indication: Hypercholesteremia On: :22 Request Comments: in six months (approximately) METABOLIC PANEL, COMPREHENSIVE (40472)Indication: Hypercholesteremia On: :50 Request Comments: in six months (approximately) LIPID PANEL (39333)Indication: Hypercholesteremia On: :50 Request Comments: in six months (approximately) METABOLIC PANEL, COMPREHENSIVE (28511)Indication: Hypercholesteremia On: :45 Request LIPID PANEL (72244)Indication: Hypercholesteremia On: :45 Request CBC WITH MANUAL DIFF (15243)Indication: Hypercholesteremia On: :45 Request URINE YAIR CULTURE-IDENTIFICATN (20027)Indication: Hematuria, unspecified On: :36 Request CALCULUS CHEMICAL QUANTI (25779)Indication: History of kidney stones On: :28 Request METABOLIC PANEL, COMPREHENSIVE (64750)Indication: Elevated blood-pressure reading without diagnosis of hypertension On: 99-Epc-921536:15 Request LIPID PANEL (22829)Indication: Elevated blood-pressure reading without diagnosis of hypertension On: 87-Ijs-232409:15 Request CALCIFIDIOL (42130) VIT D 25Indication: Osteoporosis On: 26-Htk-77890:00 Request TSH (26145)Indication: Stress reaction On: :56 Request URINALYSIS, W/ MICRO (08984)Indication: Elevated blood-pressure reading without diagnosis of hypertension On: :56 Request LIPID PANEL (81319)Indication: Elevated blood-pressure reading without diagnosis of hypertension On: :55 Request CBC WITH MANUAL DIFF (43445)Indication: Elevated blood-pressure reading without diagnosis of hypertension On: :55 Request METABOLIC PANEL, COMPREHENSIVE (44233)Indication: Osteoporosis On: :55 Request URINE YAIR CULTURE-IDENTIFICATN (79356)Indication: Hematuria, unspecified On: 94-Btg-381107:04 Request URINALYSIS (22912)Indication: Hematuria On: 0-Nrz-841095:09 Request Lipid Panel (62086)Indication: Screening for lipid disorders On: 9-Ilx-370387:09 Request CALCIFIDIOL (09184) VIT D 25Indication: Osteoporosis On: :08 Request CBC (Auto) (89910)Indication: Osteoporosis On: :07 Request Metabolic Panel, Comprehensive (59231)Indication: Osteoporosis On: :07 Request Planned Encounters Medical; 3 Month FU - On: 19-Oct-2018 8:30 Comprehensive Internal Medicine Mylene Craig CNP, CNP, Mary E Planned Procedures Echo CompleteBy: Mylene Craig CNP On: 24-Aug-2018 Intent Mylene Craig CNP COMPUTED TOMOGRAPHY ANGIOGRAPHY OF On: 04-Aug-2018 Intent CHEST FOR PULMONARY EMBOLISM (13953)By: Katarina Bourgeois CHEST XRAY, PA & LATERAL (68062)By: On: 04-Aug-2018 Intent Katarina Bourgeois Ultrasound - LiverBy: Kiara GRIFFITH, On: 10-Dec-2017 Intent Mylene León CNP SCREENING DIGITAL TOMOSYNTHESIS OF On: 10-Dec-2017 Intent BREAST (60918)By: Mylene Craig CNP, CNP, Mary E Flu Vaccine (Quadrivalent) 63988Eb: On: 27-Aug-2017 Intent Mylene Craig CNP, CNP, Mary E Comments: lot: [id number]: 03/28/18ite/route: L analilia, IMamt: 0.5mlVIS and ABN signed when applicableCarmen [facility] Ear Irrigation (58540)By: Kiara On: 27-Aug-2017 Intent Mylene GRIFFITH CNP, Mary E Comments: IrrigationSite- L and RAmount/Color/Quality - medium amount removed from L ear and minimal from RTolerated [facility] centerCarmen [facility] Bone Density StudyBy: Kiara GRIFFITH, On: 14-May-2017 Intent Mylene León CNP Comments: Repeat Oct 2017 MAMMOGRAM, SCREENING, BOTH BREAST On: 25-Aug-2016 Intent (76188)By: Manjit Musa MD Flu Vaccine (Quadrivalent) 05750Qx: On: 25-Aug-2016 Intent Manjit Musa MD Comments: Lot #[id number]/30/17ite-L dltd, IMDose prefilled syringegiven by:THERESA Cardenas and ABN signed COMP EYE EXAMINATION, ESTAB PATIENT On: 13-Jan-2016 Intent (83383)By: Mylene Craig CNP, CNP, Mylene Duenas CT - Abdomen & Pelvis (Without On: 25-Nov-2015 Intent Contrast)By: Jennifer Spencer DO Comments: tonight - stat Toradol Injection, 30 mg On: 11-Nov-2015 Intent (J1885)By: Mylene Craig CNP, CNP, Mary E Wax CurettesBy: Reagan Sharp MD On: 16-Sep-2015 Intent Ear Irrigation (84410)By: Lila On: 16-Sep-2015 Intent Reagan PARDO LIMITED GALLIUM SCAN FOR On: 22-Apr-2015 Intent LOCALIZATION OF ABSCESS (20970)By: Comments: head and neck Reagan Sharp MD Echo CompleteBy: Reagan Sharp MD On: 25-Mar-2015 Intent MAMMOGRAM, SCREENING, BOTH BREAST On: 25-Mar-2015 Intent (80695)By: Reagan Sharp MD DEXA SCAN AXIAL SKELETON (73665)By: On: 25-Mar-2015 Intent Reagan Sharp MD Nuclear Medicine - Bone ScanBy: On: 25-Mar-2015 Intent Reagan Sharp MD EKG (06855)By: Reagan Sharp MD On: 25-Mar-2015 Intent Comments: see scanned document of test done to see results reviewed today with patient IMMUNIZ ADMNIN, 1 VAC, SNGL/COMBO On: 25-Mar-2015 Intent (16218)By: Reagan Sharp MD ZOSTER VACC, [place] (56236)By: Lila On: 25-Mar-2015 Intent Reagan PARDO Toradol Injection, 30 mg On: 15-Oct-2014 Intent ([id number])By: Mylene Craig CNP Comments: lot [id number] 10.10.1630mg right gmIMas, [employer] Mylene Duenas SPECIMEN HANDLING/TRANSPORT On: 15-Oct-2014 Intent (37625)By: Kiara GRIFFITH YesicaYulissa Craig CNP Yesica MAMMOGRAM, SCREENING, BOTH BREAST On: 05-Sep-2014 Intent (23918)By: Reagan Sharp MD Flu Vaccine (Quadrivalent) 77131Kt: On: 10-Aug-2014 Intent Adrienne Tirado LPN ADMINISTRATION OF INFLUENZA VIRUS On: 10-Aug-2014 Intent VACCINE (G0008)By: Candida MADRID, Comments: X23SP6.15prefilled syringeL Dltd, IMAS, LPNABN and VIS signed Adrienne Rocephin Injection, 2 Gram On: 09-Aug-2014 Intent ([id number])By: Corine Rice DO Comments: 159305w7.1.172 gmbilateral gm IMAS, LPNABN and VIS signed Wax CurettesBy: Corine Rice DO On: 09-Aug-2014 Intent Ear Irrigation (75215)By: Dwayne On: 09-Aug-2014 Cornie Hunt DO Comments: b/lmoderate amount of yellow wax removed bilaterallywax curette used Ultrasound - RenalBy: Lila PARDO, On: 26-Mar-2014 Intent Reagan Martin Radiology - KUBBy: Kiara GRIFFITH Mylene On: 21-Mar-2014 Intent E Kiara GRIFFITH Yesica Comments: today Toradol Injection, 30 mg On: 21-Mar-2014 Intent ([id number])By: Mylene Craig CNP, CNP [facility] SPECIMEN HANDLING/TRANSPORT On: 21-Mar-2014 Intent ([id number])By: Kiara GRIFFITH YesicaYulissa Craig CNP [facility] IMMUNIZ ADMNIN, 1 VAC, SNGL/COMBO On: 27-Jun-2013 Intent ([id number])By: Reagan Sharp MD FLU VAC, SPLIT, >3 YEARS, INTRAMUSC On: 27-Jun-2013 Intent ([id number])By: Reagan Sharp MD MAMMOGRAM, SCREENING, BOTH BREASTS On: 27-Jun-2013 Intent ([id number])By: Reagan Sharp MD DXA, BONE DENSITY, AXIAL SKELETON On: 27-Jun-2013 Intent ([id number])By: Reagan Sharp MD Eprescribed prescriptions On: 27-Jun-2013 Intent ([id number])By: Ines Jensen LPN MAMMOGRAM, SCREENING, BOTH BREASTS On: 06-Jun-2013 Intent ([id number])By: Reagan Sharp MD DXA, BONE DENSITY, AXIAL SKELETON On: 06-Jun-2013 Intent ([id number])By: Reagan Sharp MD Phenergan Injection, up to 50 mg On: 18-Jan-2013 Intent ([id number])By: Mylene Craig CNP, CNP, Mary E CT - Abdomen & Pelvis Stone On: 18-Jan-2013 Intent ProtocolBy: Mylene Craig CNP Comments: today Mylene GRIFFITH Toradol Injection, 30 mg On: 18-Jan-2013 Intent ([id number])By: Mylene Craig CNP, CNP, Mary E Aerosol Treatment ([id number])By: Kiara On: 31-Aug-2012 Intent Mylene GRIFFITH CNP, Mary E Bone Density StudyBy: Lila PARDO, On: 25-Apr-2012 Intent Reagan Martin IMMUNIZ ADMNIN, 1 VAC, SNGL/COMBO On: 27-Jul-2011 Intent ([id number])By: Reagan Sharp MD FLU VAC, SPLIT, >3 YEARS, INTRAMUSC On: 27-Jul-2011 Intent ([id number])By: Reagan Sharp MD TDAP VACCINE >7 IM ([id number])By: Kiara On: 20-Mar-2010 Intent Mylene GRIFFITH CNP, Mary E Comments: Lot #[id number]-left deltoidgiven by:[facility] EKG ([id number])By: Corine Rice DO On: 09-May-2009 Intent Comments: nsr no acute chgs Planned Medications INJECTION, CEFTRIAXONE SODIUM, PER 250 MG Ordered: 09-Aug-2014 Pending Corine Rice DO INJECTION, KETOROLAC TROMETHAMINE, PER 15 MG Ordered: 18-Jan-2013 Pending Mylene Craig CNP, CNP, Mary E INJECTION, KETOROLAC TROMETHAMINE, PER 15 MG Ordered: 21-Mar-2014 Pending Mylene Craig CNP, CNP, Mary E INJECTION, KETOROLAC TROMETHAMINE, PER 15 MG Ordered: 15-Oct-2014 Pending Mylene Craig CNP, CNP, Mary E INJECTION, KETOROLAC TROMETHAMINE, PER 15 MG Ordered: 11-Nov-2015 Pending Mylene Craig CNP, CNP, Mary E Phenergan 50 MG/ML Injection Solution Ordered: 18-Jan-2013 Pending Mylene Craig CNP, CNP, Mary E Instructions Name Dates Details Nonsmoker : How to access health information online Indication: Nonsmoker Nonsmoker : How to access health information online - Detail Indication: Nonsmoker BMI 30.0-30.9,adult : Patient Instructions Indication: BMI 30.0-30.9,adult Nonsmoker : How to access health information online Indication: Nonsmoker Nonsmoker : How to access health information online - Detail Indication: Nonsmoker Elevated blood pressure reading : Patient Instructions Indication: Elevated blood pressure reading Nonsmoker : How to access health information online Indication: Nonsmoker Nonsmoker : How to access health information online - Detail Indication: Nonsmoker Nonsmoker : Patient Instructions Indication: Nonsmoker Bruising : DISCONTINUED - CBC & PLATELETS (AUTO) (60000) Indication: Bruising Elevated liver enzymes : DISCONTINUED - HEPATIC FUNCTION PANEL (09830) Indication: Elevated liver enzymes Hypercholesteremia : How to access health information online Indication: Hypercholesteremia Hypercholesteremia : How to access health information online - Detail Indication: Hypercholesteremia Hypercholesteremia : Patient Instructions Indication: Hypercholesteremia Osteoporosis : DISCONTINUED - DEXA SCAN AXIAL SKELETON ([id number]) Indication: Osteoporosis Hypercholesteremia : DISCONTINUED - METABOLIC PANEL, COMPREHENSIVE (52248) Indication: Hypercholesteremia Hematuria : How to access health information online Indication: Hematuria Hematuria : How to access health information online - Detail Indication: Hematuria Hematuria : Patient Instructions Indication: Hematuria Hematuria : How to access health information online Indication: Hematuria Hematuria : How to access health information online - Detail Indication: Hematuria Hematuria : Patient Instructions Indication: Hematuria Hypercholesteremia : How to access health information online Indication: Hypercholesteremia Hypercholesteremia : How to access health information online - Detail Indication: Hypercholesteremia Hypercholesteremia : Patient Instructions Indication: Hypercholesteremia Obstructive sleep apnea on CPAP : Patient Instructions Indication: Obstructive sleep apnea on CPAP BMI 29.0-29.9,adult : How to access health information online Indication: BMI 29.0-29.9,adult BMI 29.0-29.9,adult : How to access health information online - Detail Indication: BMI 29.0-29.9,adult BMI 29.0-29.9,adult : Patient Instructions Indication: BMI 29.0-29.9,adult UTI symptoms : How to access health information online Indication: UTI symptoms UTI symptoms : How to access health information online - Detail Indication: UTI symptoms UTI symptoms : Patient Instructions Indication: UTI symptoms Hypercholesteremia : How to access health information online Indication: Hypercholesteremia Hypercholesteremia : How to access health information online - Detail Indication: Hypercholesteremia Hypercholesteremia : Patient Instructions Indication: Hypercholesteremia Headache : How to access health information online Indication: Headache Headache : How to access health information online - Detail Indication: Headache Headache : Patient Instructions Indication: Headache Hematuria : How to access health information online Indication: Hematuria Hematuria : How to access health information online - Detail Indication: Hematuria Hematuria : Patient Instructions Indication: Hematuria Hypercholesteremia : How to access health information online Indication: Hypercholesteremia Hypercholesteremia : How to access health information online - Detail Indication: Hypercholesteremia Hypercholesteremia : Patient Instructions Indication: Hypercholesteremia Hypokalemia : How to access health information online Indication: Hypokalemia Hypokalemia : How to access health information online - Detail Indication: Hypokalemia Hypokalemia : Patient Instructions Indication: Hypokalemia Abnormal EKG : How to access health information online Indication: Abnormal EKG Abnormal EKG : How to access health information online - Detail Indication: Abnormal EKG Abnormal EKG : Patient Instructions Indication: Abnormal EKG Hypercholesteremia : How to access health information online - Detail Indication: Hypercholesteremia Hypercholesteremia : Patient Instructions Indication: Hypercholesteremia UTI symptoms : Patient Instructions Indication: UTI symptoms Hypercholesteremia : How to access health information online Indication: Hypercholesteremia Hypercholesteremia : How to access health information online - Detail Indication: Hypercholesteremia Hypercholesteremia : Patient Instructions Indication: Hypercholesteremia Over weight : Patient Instructions Indication: Over weight Well woman exam : Patient Instructions Indication: Well woman exam Hematuria, unspecified : Patient Instructions Indication: Hematuria, unspecified Advance Directives Name Dates Details Immunization Registry [place] - Effective on 07/19/2018. Effective: 19-Jul-2018 Expiration date unspecified Encounters Office Visit On: 24-Aug-2018 8:44 Encounter Reason: Follow up hospital - Reason for ER visit: note: (chest pain). The patient feels well with no complaints, has good energy level (until late afternoon) and is sleeping well. Patient has been compliant wit End: 24-Aug-2018 9:34 h instructions. Current medication use: no side effects, compliant with dosing regimen and considered effective by patient. Patient sleeps 6 hours per night. Nutrition: balanced diet. Note for Follow u p hospital: Pt went to hospital on 08-06 with chest pain. Chest pain started couple weeks before but worsened during [employer] game and climbing steps. ER note showin stable BP, neg troponins, neg chest xray , jessica lipid Had recently restarted on alandronate,. EKG no acute findings hadn stress test and negative. Recommended [facility] and may be musculoskeletal. and follow up primaryEncounter Diagnosis: Nonsmoker, BMI 30.0-30.9,adult, GERD (gastroesophageal reflux disease), Elevated blood pressure reading, Hypertension, Chest pain [facility] Office Visit On: 04-Aug-2018 11:53 Encounter Reason: Chest Pain - Symptoms include chest pain. The pain is located in the substernal area, left anterior chest and right anterior chest. The patient describes the pain as aching. Onset was 2 week(s) ago. Not End: 04-Aug-2018 12:32 e for Chest pain: Symptoms started about 1 1/2 weeks ago with chest pain that hurts when breathing in and also a dull ache in front and back of chest when sitting still. No fever or chills, cough, hea dache, nasal drainage. No chest pain that radiates to jaw, arm, n/v, sweats. Thought was getting sick last week but took airborne and felt better since taking that. Was around son that had cough, and in the hospital visiting baby. 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 Has not taken anything for pain.Encounter Diagnosis: BMI 30.0-30.9,adult, Nonsmoker, Chest pain on breathing, Elevated blood pressure reading [facility] Annotation/Addendum On: 27-Jul-2018 14:39 Encounter Diagnosis: Hypertension End: 27-Jul-2018 14:47 [facility] Office Visit On: 19-Jul-2018 8:29 Encounter Reason: Follow up for chronic medical issues - The patient feels well with minor complaints (headache), has good energy level and is sleeping well (not always. i have a cpap). Patient has been compliant with in End: 19-Jul-2018 9:20 structions. Current medication use: no side effects and compliant with dosing regimen. Patient sleeps 7 (6-7) hours per night. Nutrition: balanced diet. The medical issues the patient is following up for include All identified problems below. Encounter Diagnosis: Nonsmoker, Hypercholesteremia, BMI 30.0-30.9,adult, Osteoporosis, Headache, Family history of early CAD, Hypertension, Elevated liver enzymes, Numerous moles [facility] Annotation/Addendum On: 15-Apr-2018 12:32 [facility] End: 15-Apr-2018 12:35 Office Visit On: 15-Apr-2018 7:08 Encounter Reason: Follow up for chronic medical issues - The patient feels well with no complaints, has good energy level and is sleeping well. Patient has been compliant with instructions. Current medication use: no kate End: 15-Apr-2018 8:46 e effects and compliant with dosing regimen. Patient sleeps 7 (woke up at 2 am this morning) hours per night. The medical issues the patient is following up for include All identified problems below. No te for Follow up for chronic medical issues: Gallbladder out in December. Pt noted hips improved at night off of atrovastatin, was taking statin at [facility] Diagnosis: Hypercholesteremia, BMI 29.0-29.9,adult, Nonsmoker, Elevated liver enzymes, Bruising, Osteoporosis, Hip pain, bilateral [facility] Lab Order On: 31-Dec-2017 7:36 Encounter Diagnosis: Hypercalcemia, Elevated liver enzymes End: 31-Dec-2017 7:43 [facility] Annotation/Addendum On: 24-Dec-2017 13:03 Encounter Diagnosis: Gallstones End: 24-Dec-2017 13:10 [facility] Office Visit On: 10-Dec-2017 7:45 Encounter Reason: Follow up for chronic medical issues - The patient feels well with minor complaints (periodic torso bruising.), has good energy level and is sleeping well. Patient has been compliant with instructions. End: 10-Dec-2017 9:13 Current medication use: no side effects and compliant with dosing regimen. Patient sleeps 7 hours per night. The medical issues the patient is following up for include All identified problems below. Not e for Follow up for chronic medical issues: No burning or urge or nocturia symptoms, [ADDITIONAL REASON] Follow up tests - Diagnostic tests include other (labs). Encounter Diagnosis: Hematuria, Current nonsmoker (Renamed from Current non-smoker), BMI 29.0-29.9,adult, Osteoporosis, Bruising, Elevated liver enzymes, Hypercholesteremia [facility] Office Visit On: 06-Oct-2017 15:37 Encounter Reason: Hematuria - Symptoms include ken colored urine. Onset was 2 day(s) ago. The symptoms occur intermittently. Previous presentation included hematuria. Note for Hematuria: Had painless hematuriaEncounter Diagnosis: End: 06-Oct-2017 15:55 BMI 29.0-29.9,adult, Current nonsmoker (Renamed from Current non-smoker), Hematuria, Headache [facility] Office Visit On: 27-Aug-2017 7:49 Encounter Reason: Follow up for chronic medical issues - The patient feels well with minor complaints, has good energy level and is sleeping well. Current medication use: no side effects and compliant with dosing regimen End: 27-Aug-2017 10:13 . Patient sleeps 7 hours per night. The medical issues the patient is following up for include All identified problems below., [ADDITIONAL REASON] Follow up tests - Diagnostic tests include other (labs). Note for Anny shay results: Had repeat potassium drawn as potassium 3.3, then repeat 3.7. Ongoing drainage Encounter Diagnosis: BMI 29.0-29.9,adult, Current nonsmoker (Renamed from Current non-smoker), Hypercholesteremia, Osteoporosis, Vitamin D deficiency, Bilateral hearing loss due to cerumen impaction, Need for prophylactic vaccination and inoculation against influenza (Renamed from Need for immunization against influenza) [facility] Lab Order On: 23-Aug-2017 13:22 Encounter Diagnosis: Hypokalemia End: 23-Aug-2017 13:24 [facility] Annotation/Addendum On: 10-Aug-2017 12:08 Encounter Diagnosis: Unspecified Diagnosis End: 10-Aug-2017 12:13 [facility] Office Visit On: 14-May-2017 9:22 Encounter Reason: Follow up for chronic medical issues - The patient feels well with minor complaints (sx came back 2 days after finished atb for uti), has good energy level and is sleeping well. Current medication use: End: 14-May-2017 10:12 no side effects and compliant with dosing regimen. Patient sleeps 7 hours per night. The medical issues the patient is following up for include All identified problems below.Encounter Diagnosis: Current nonsmoker (Renamed from Current non-smoker), BMI 29.0-29.9,adult, UTI symptoms, Osteoporosis, GERD (gastroesophageal reflux disease), Obstructive sleep apnea on CPAP, Hypercholesteremia, Trigger finger, right [facility] Office Visit On: 28-Apr-2017 7:57 Encounter Reason: UTI - The urinary symptoms are described as painful urination, frequency and burning. The urine is described as clear.Encounter Diagnosis: UTI symptoms, BMI 29.0-29.9,adult, History of kidney stones (V13.01), Osteoporosis End: 28-Apr-2017 8:27 [facility] Phone Encounter On: 01-Sep-2016 13:00 Encounter Diagnosis: Abnormal CBC End: 01-Sep-2016 13:02 [facility] Office Visit On: 25-Aug-2016 15:29 Encounter Reason: Follow up for chronic medical issues - The patient feels well with no complaints, has good energy level and is sleeping well. Current medication use: experiencing side effects and compliant with dosing End: 25-Aug-2016 17:04 regimen. Patient sleeps 7 hours per night. The medical issues the patient is following up for include All identified problems below.Encounter Diagnosis: Hypercholesteremia, Current nonsmoker (Renamed from Current non-smoker), BMI 29.0-29.9,adult, Need for prophylactic vaccination and inoculation against influenza (V04.81), Osteoporosis, GERD (gastroesophageal reflux disease), Vitamin D deficiency, Obstructive sleep apnea on CPAP, Aortic valve disorder, Encounter for screening mammogram for breast cancer (Renamed from Encounter for screening mammogram for malignant neoplasm of breast), Trigger thumb, right, Encounter for general adult medical examination w/o abnormal findings (Renamed from Encounter for general adult medical examination without abnormal findings) [facility] Office Visit On: 12-May-2016 9:32 Encounter Reason: Injections - The medication the patient is here to receive is other (cortizone).Encounter Diagnosis: Trigger thumb, right, Vitamin D deficiency, Hypercholesteremia, Osteoporosis End: 14-May-2016 7:17 [facility] Office Visit On: 07-May-2016 11:16 Encounter Reason: Thumb Sprain/Sprain - The patient is ambidextrous. Symptoms include tenderness, decreased range of motion, thumb base instability and diminished thumb grasp, while symptoms do not include thumb bruising End: 08-May-2016 14:49 or swelling. Symptoms are located in the left interphalangeal joint. There is no radiation.Encounter Diagnosis: Headache, Trigger thumb, right, Hematuria, Tremor, H/O: hysterectomy, Osteoporosis, Hypercholesteremia [facility] Office Visit On: 13-Jan-2016 15:16 Encounter Reason: Eye Redness - Symptoms include eye redness and eye burning. Symptoms are located in the left eye. Onset was sudden 1 day(s) ago. The symptoms occur constantly. The patient describes this as worsening. P End: 13-Jan-2016 15:44 resentation included eye redness.Encounter Diagnosis: Acute conjunctivitis [facility] Office Visit On: 25-Nov-2015 16:05 Encounter Reason: Back pain - The onset of the pain has been sudden and has been occurring in a persistent pattern for 3 days. The course has been increasing. The pain is characterized as a dull ache. The pain is describ End: 25-Nov-2015 22:07 ed as being located in the lower back and lumbar area. The pain does not radiate. There are no precipitating factors. The symptoms have no aggravating factors. The symptoms are relieved by anti-inflamma tory use. The pain has been associated with flank pain, while there has been no abdominal pain, chills, dysuria, fever, incontinence of urine, leg weakness or trauma. Note for Pain: Pt had a kidney st one about 2 weeks ago and a UTI. Finished the atb and passed kidney stone. Started wednesday with hematuria and now low back pain.- 2 weeks ago- had uti and passed a stone- she took bactrim - finished that - then wednesday blood in urine which now gone- back pain both sides all around - worse to stand better if sits- no fever - or chills- no other uti sx Encounter Diagnosis: Hematuria, LOW BACK PAIN (724.2) [facility] Annotation/Addendum On: 12-Nov-2015 14:06 Encounter Diagnosis: Unspecified Diagnosis End: 12-Nov-2015 14:07 [facility] Office Visit On: 11-Nov-2015 14:40 Encounter Reason: UTI - The urinary symptoms are described as frequency and flank pain. The symptoms have been occurring for 1 day and have been constant. The urine is described as clear. The symptoms have been associat End: 11-Nov-2015 17:41 ed with abdominal pain and low back pain. There is no history of sexual contact with a person having an STD, use of tampons, possible vaginal foreign body, douching, use of contraceptive devices, sexual assault, trauma, vulvovaginal exposure to chemical irritants, sexual contact with a person exposed to an STD, recent catheterization, new sexual partner or current catheterization. There is a medical h istory of kidney stones. The patient denies the use of oral contraceptives, antibiotics, hormone replacement therapy or pyridium/uristat.Encounter Diagnosis: UTI symptoms, Hematuria [facility] Phone Encounter On: 04-Nov-2015 15:23 Encounter Diagnosis: Unspecified Diagnosis End: 04-Nov-2015 15:26 [facility] Historical Summary On: 17-Sep-2015 7:49 [facility] End: 17-Sep-2015 7:50 Office Visit On: 16-Sep-2015 13:04 Encounter Reason: Follow up for chronic medical issues - The patient feels well with minor complaints and has decreased energy level. Patient has been compliant with instructions. Current medication use: no side effects, End: 16-Sep-2015 13:45 compliant with dosing regimen and considered effective by patient. Patient sleeps 7 hours per night. Impact of disease: emotional impact-mild. Nutrition: balanced diet and supplemental vitamins. The me dical issues the patient is following up for include cardiac issues, gastric reflux, high cholesterol and other (MEENU, hyperkalemia ).Encounter Diagnosis: Hypercholesteremia, Current nonsmoker (Renamed from Current non-smoker), Hypokalemia, GERD (gastroesophageal reflux disease), Obstructive sleep apnea on CPAP, Abnormal EKG, Aortic valve disorder, Stress reaction, Well woman exam, Osteoporosis, Over weight, Bone loss, Bilateral hearing loss due to cerumen impaction, Cerumen impaction [facility] Office Visit On: 02-Jul-2015 15:23 Encounter Reason: Follow up tests - Date: (05/20/15 bone scan).Encounter Diagnosis: Hypokalemia, Tooth pain, MEENU on CPAP (327.23), UNSPECIFIED VIRAL INFECTION (079.99) End: 02-Jul-2015 16:19 [facility] Office Visit On: 22-Apr-2015 17:14 Encounter Diagnosis: Tooth pain End: 22-Apr-2015 17:16 [facility] Phone Encounter On: 19-Apr-2015 14:36 Encounter Diagnosis: Hypokalemia End: 19-Apr-2015 14:42 [facility] Office Visit On: 19-Apr-2015 9:09 Encounter Reason: Follow up tests - Date: (April 03 and ).Encounter Diagnosis: Abnormal EKG, AORTIC VALVE DISORDERS (424.1), Hypokalemia, Osteoporosis (733.00), Tooth pain, Hypercholesterolemia (272.0) End: 19-Apr-2015 10:16 [facility] Office Visit On: 25-Mar-2015 14:32 Encounter Reason: Follow up for chronic medical issues - The patient feels well with no complaints, has good energy level and is sleeping well. Patient has been compliant with instructions. Current medication use: no kate End: 25-Mar-2015 15:57 e effects, compliant with dosing regimen and considered effective by patient. Patient sleeps 7 hours per night. Impact of disease: emotional impact-mild. Nutrition: balanced diet and supplemental vitami ns. The medical issues the patient is following up for include high cholesterol.Encounter Diagnosis: Hypercholesterolemia (272.0), GERD (530.81), OVERWEIGHT (278.02), Stress Reaction (308.4), Hypokalemia, Osteoporosis (733.00), WWV V73.21 (Renamed from WWV), SHINGLES,NEED FOR PROPHYLACTIC VACCINATION AND INOCULATION AGAINST (V05.8), Tooth pain, Right knee pain, Breast cancer screening, MEENU on CPAP (327.23), Abnormal EKG [facility] Lab Order On: 18-Mar-2015 12:16 Encounter Diagnosis: Hypokalemia End: 18-Mar-2015 12:23 [facility] Office Visit On: 04-Jan-2015 7:11 Encounter Reason: UTI nurse visit - There has been no associated nausea, frequency, fever / chills, dysuria, blood in urine, back pain, abdominal pain or other.Encounter Diagnosis: UTI symptoms End: 04-Jan-2015 17:06 [facility] Office Visit On: 18-Dec-2014 14:50 Encounter Reason: Urinary Urgency - The onset of the urinary urgency has been sudden and has been occurring in a persistent pattern for 1 day. The course has been recurrent. The symptoms have been associated with hematuria.Encounter Diagnosis: End: 18-Dec-2014 15:47 UTI symptoms [facility] Office Visit On: 24-Oct-2014 13:59 Encounter Reason: Earache - The onset of the earache has been gradual and has been occurring in a persistent pattern for 1 week. The course has been increasing. The earache is described as a moderate dull ache and pressu End: 24-Oct-2014 14:19 re sensation. It affects the left ear. The pain affects the internal ear. There has been associated sore throat (left side).Encounter Diagnosis: Otitis externa, Eustachian tube disorder [facility] Annotation/Addendum On: 15-Oct-2014 16:33 Encounter Diagnosis: Hematuria, unspecified (599.70) End: 15-Oct-2014 16:58 [facility] Office Visit On: 15-Oct-2014 16:09 Encounter Reason: Urinary problems - The onset of the urinary problems has been sudden and they have been occurring in a persistent pattern for days. The course has been increasing. The urinary problems are described as End: 15-Oct-2014 16:32 moderate. The urinary problem is characterized as frequency, hesitancy, urgency and painful urination. There has been associated back pain.Encounter Diagnosis: Urinary Frequency (788.41), Urinary tract infection, site not specified (599.0) [facility] Office Visit On: 24-Sep-2014 14:59 Encounter Reason: Follow up tests - Date: (09-17-14 blood work)., [ADDITIONAL REASON] Follow up for chronic medical issues - The patient feels well with no complaints End: 24-Sep-2014 15:23 , has good energy level and is sleeping well (sometimes no). Patient has been compliant with instructions. Current medication use: no side effects, compliant with dosing regimen and considered effective by patient. Patient sleeps 7 (cpap ) hours per night. Impact of disease: emotional impact-mild. Nutrition: balanced diet and supplemental vitamins. The medical issues the patient is following up for in clude cardiac issues, gastric reflux, high cholesterol, osteoporosis/osteopenia and other (rosacea, MEENU, kidney stones ). Encounter Diagnosis: Hypercholesterolemia (272.0), Tremor, WWV V73.21 (Renamed from WWV), OVERWEIGHT (278.02), Cholelithiasis, GERD (530.81), HEART MURMUR (785.2), Osteoporosis (733.00), MEENU on CPAP (327.23), CERUMEN IMPACTION (380.4), Rosacea (695.3), Hypokalemia, Stress Reaction (308.4), Throat fullness [facility] Phone Encounter On: 05-Sep-2014 14:56 Encounter Diagnosis: Breast cancer screening End: 05-Sep-2014 15:00 [facility] Office Visit On: 09-Aug-2014 7:25 Encounter Reason: Sinusitis - The last clinic visit was 5 day(s) ago. No changes in management were made at the last visit. Symptoms include nasal congestion, postnasal drainage, cheek pressure, cough and headache, while End: 10-Aug-2014 10:13 symptoms do not include ear fullness or ear pain. Onset was sudden. The symptoms occur constantly. The patient describes this as moderate in severity and worsening. Associated symptoms do not include chills or fever.Encounter Diagnosis: SINUSITIS, ACUTE NOS (461.9), CERUMEN IMPACTION (380.4), Need for prophylactic vaccination and inoculation against influenza (V04.81) [facility] Office Visit On: 26-Mar-2014 8:15 Encounter Reason: Follow up for chronic medical issues - The patient feels well with minor complaints, has good energy level and is sleeping well. Patient has been compliant with instructions. Current medication use: no End: 26-Mar-2014 9:10 side effects, compliant with dosing regimen and considered effective by patient. Patient sleeps 7 (cpap ) hours per night. Impact of disease: emotional impact- mild. Nutrition: balanced diet and suppleme ntal vitamins. The medical issues the patient is following up for include cardiac issues, gastric reflux, high cholesterol, osteoporosis/osteopenia and other (rosacea, MEENU, kidney stones ).Encounter Diagnosis: GERD (530.81), Rosacea (695.3), Hypercholesterolemia (272.0), HEART MURMUR (785.2), WWV V73.21 (Renamed from WWV), OVERWEIGHT (278.02), Osteoporosis (733.00), Stress Reaction (308.4), Trigger thumb, right, MEENU on CPAP (327.23), Hypokalemia, Cholelithiasis, Tremor, Hematuria, unspecified (599.70) [facility] Office Visit On: 21-Mar-2014 7:59 Encounter Reason: Urinary problems - The onset of the urinary problems has been sudden and they have been occurring in a persistent pattern for 4 days. The course has been increasing. The urinary problems are described a End: 21-Mar-2014 8:29 s moderate. The urinary problem is characterized as frequency. There has been associated blood in urine. Past medical history : kidney stones.Encounter Diagnosis: Urinary Frequency (788.41), History of kidney stones (V13.01) [facility] Office Visit On: 18-Sep-2013 14:07 Encounter Reason: Follow up for chronic medical issues - The patient feels well with minor complaints and has decreased energy level. Patient has been compliant with instructions. Current medication use: no side effects, End: 18-Sep-2013 14:48 compliant with dosing regimen and considered effective by patient. Patient sleeps 7 hours per night. Impact of disease: emotional impact-mild. Nutrition: balanced diet and supplemental vitamins. The me dical issues the patient is following up for include cardiac issues, depression, high cholesterol, osteoporosis/osteopenia and other (rosacea ).Encounter Diagnosis: MEENU on CPAP (327.23), Screening (V82.9), Trigger thumb, Rosacea (695.3), GERD (530.81), Stress Reaction (308.4), Hypercholesterolemia (272.0), HEART MURMUR (785.2), WWV V73.21 (Renamed from WWV), Osteoporosis (733.00), OVERWEIGHT (278.02), Neck pain (723.1) [facility] Office Visit On: 27-Jun-2013 14:04 Encounter Reason: Well Women Exam - The patient has good energy level and is sleeping well. Patient does not exercise. Calcium intake includes 1200 mg with Vit D daily supplement. The patient denies the use of oral contr End: 27-Jun-2013 14:40 aceptives or hormone replacement therapy. Note for Well Women Exam: mammo ??- last was Aug 2012 and has order and last dexa was 2009Encounter Diagnosis: WWV V73.21 (Renamed from [facility]), Osteoporosis (733.00), Hypercholesterolemia (272.0), HEART MURMUR (785.2), Need for prophylactic vaccination and inoculation against influenza (V04.81) [facility] Office Visit On: 06-Jun-2013 14:25 Encounter Reason: Follow up for chronic medical issues - The patient feels well with minor complaints, has good energy level and is sleeping well. Patient has been compliant with instructions. Current medication use: no End: 07-Jun-2013 7:44 side effects, compliant with dosing regimen and considered effective by patient. Patient sleeps 7 (uses cpap) hours per night. Impact of disease: emotional impact-mild. Nutrition: balanced diet and supp lemental vitamins. The medical issues the patient is following up for include cardiac issues, gastric reflux, high blood pressure and osteoporosis/osteopenia.Encounter Diagnosis: Stress Reaction (308.4), Screening (V82.9), GERD (530.81), Rosacea (695.3), Osteoporosis (733.00), BRONCHITIS, NOT SPECIFIED ACUTE OR CHRONIC (490.), Cough (786.2), Wheezing (786.07), Elevated Blood Pressure without diagnosis of Hypertension (796.2), Hematuria, unspecified (599.70), History of kidney stones (V13.01), Nausea alone (787.02), WWV V73.21 (Renamed from [facility]), Headache, Tension (307.81), LOW BACK PAIN (724.2), Screening for lipid disorders (V77.91), Hematuria (599.7), Trigger thumb (727.03) [facility] Office Visit On: 18-Jan-2013 8:15 Encounter Reason: Urinary problems - The onset of the urinary problems has been sudden and they have been occurring in a persistent pattern for 1 day. The course has been increasing. The urinary problems are described as End: 18-Jan-2013 12:49 severe. The urinary problem is characterized as frequency. There has been associated back pain and nausea. Past medical history : kidney stones (13 years ago ).Encounter Diagnosis: LOW BACK PAIN (724.2), Hematuria, unspecified (599.70), History of kidney stones (V13.01), Nausea alone (787.02) [facility] Office Visit On: 18-Oct-2012 14:40 Encounter Reason: Follow up for chronic medical issues - The patient feels well with minor complaints, has good energy level and is sleeping well. Patient has been compliant with instructions. Current medication use: no End: 18-Oct-2012 15:25 side effects, compliant with dosing regimen and considered effective by patient. Patient sleeps 7 (uses cpap) hours per night. Impact of disease: emotional impact-mild. Nutrition: balanced diet and supp lemental vitamins. The medical issues the patient is following up for include cardiac issues, gastric reflux, high blood pressure and osteoporosis/osteopenia.Encounter Diagnosis: Osteoporosis (733.00), Stress Reaction (308.4), Elevated Blood Pressure without diagnosis of Hypertension (796.2), WWV V73.21 (Renamed from WWV), Headache, Tension (307.81) [facility] Office Visit On: 31-Aug-2012 14:32 Encounter Reason: Cough - The onset of the cough has been sudden. The cough is characterized as productive of mucoid sputum. The amount of sputum produced is scanty. The cough occurs all the time. The symptoms have been End: 31-Aug-2012 14:55 associated with hoarseness and wheezing, while the symptoms have not been associated with fever, headache, runny nose or sore throat. the color of the sputum is yellowish. Note for Cough : two and a half weeks Encounter Diagnosis: BRONCHITIS, NOT SPECIFIED ACUTE OR CHRONIC (490.), Cough (786.2), Wheezing (786.07) [facility] Phone Encounter On: 25-Apr-2012 8:26 Encounter Diagnosis: Osteoporosis (733.00) End: 25-Apr-2012 8:30 [facility] Office Visit On: 21-Apr-2012 7:33 Encounter Reason: Follow up for chronic medical issues - The patient feels well with minor complaints, has good energy level and is sleeping well. Patient has been compliant with instructions. Current medication use: no End: 25-Apr-2012 7:13 side effects, compliant with dosing regimen and considered effective by patient. Patient sleeps 7 (uses cpap) hours per night. Impact of disease: emotional impact-mild. Nutrition: balanced diet and supp lemental vitamins. The medical issues the patient is following up for include cardiac issues, gastric reflux, high blood pressure and osteoporosis/osteopenia., [ADDITIONAL REASON] Follow up tests - Date: (04.12.12). Encounter Diagnosis: Elevated Blood Pressure without diagnosis of Hypertension (796.2), Osteoporosis (733.00), GERD (530.81), WWV V73.21 (Renamed from [facility]) [facility] Office Visit On: 02-Nov-2011 14:48 Encounter Reason: Follow up for chronic medical issues - The patient feels well with minor complaints, has good energy level and is sleeping well. Patient has been compliant with instructions. Current medication use: no End: 02-Nov-2011 15:18 side effects, compliant with dosing regimen and considered effective by patient. Patient sleeps 7 hours per night. Impact of disease: emotional impact-mild. Nutrition: balanced diet and supplemental vit amins. The medical issues the patient is following up for include cardiac issues, gastric reflux, high blood pressure and osteoporosis/osteopenia.Encounter Diagnosis: Neck pain (723.1), Chest pain (786.59), Elevated Blood Pressure without diagnosis of Hypertension (796.2), Osteoporosis (733.00), GERD (530.81), Rosacea (695.3), WWV V73.21 (Renamed from [facility]), Stress Reaction (308.4) [facility] Office Visit On: 27-Jul-2011 8:21 Encounter Reason: Follow up acute care visit - The patient feeling better since last seen and improving. Patient has been compliant with instructions. Current medication use: compliant with dosing regimen. Patient sleeps End: 27-Jul-2011 9:00 7 hours per night. Impact of disease: emotional impact-mild. Nutrition: balanced diet and supplemental vitamins. The medical issues the patient is following up for include other (anxiety, stress reaction ).Encounter Diagnosis: Elevated Blood Pressure without diagnosis of Hypertension (796.2), Stress Reaction (308.4), Osteoporosis (733.00), Need for prophylactic vaccination and inoculation against influenza (V04.81) [facility] Office Visit On: 29-Jun-2011 8:13 Encounter Reason: Follow up hospital - Reason for ER visit: note: (chest pain ). The patient feels well with minor complaints and has decreased energy level. Patient has been compliant with instructions. Current medicati End: 29-Jun-2011 9:02 on use: no side effects and compliant with dosing regimen. Patient sleeps 7 hours per night. Impact of disease: emotional impact-mild. Nutrition: balanced diet and supplemental vitamins. The hospital results of the stress test were Encounter Diagnosis: Chest pain (786.59), Elevated Blood Pressure without diagnosis of Hypertension (796.2), Stress Reaction (308.4) [facility] Office Visit On: 08-Jan-2011 8:13 Encounter Reason: Rash - The onset of the rash has been sudden and has been occurring in a persistent pattern for 1 week. The course has been increasing. The rash was first seen on the lower extremity (bilatteral ). Ther End: 08-Jan-2011 8:31 e has been no progression. There has been associated pain.Encounter Diagnosis: CONTACT DERMATITIS D/T POISON SUSAN, (692.6) [facility] Office Visit On: 20-Mar-2010 15:09 Encounter Reason: Follow up acute care visit - The patient feeling better since last seen and improving. Patient has been compliant with instructions. Current medication use: no side effects ,compliant with dosing regime End: 20-Mar-2010 15:57 n and considered effective by patient. Patient sleeps 8 hours per night. Nutrition: balanced diet. The medical issues the patient is following up for include All identified problems below and UTI. Encounter Diagnosis: Urinary tract infection, site not specified (599.0), PREVENTION OF TETANUS (V03.7) [facility] Office Visit On: 04-Mar-2010 12:02 Encounter Reason: UTI - The urinary symptoms are described as painful urination ,frequency ,urgency and burning. The symptoms have been occurring for 8 hours and have been decreasing. The urine is described as clear and End: 04-Mar-2010 12:41 yellow. There has been no associated fever ,perineal pain ,abdominal pain ,chills ,diarrhea ,nausea ,vomiting ,low back pain or vaginal discharge. There is no history of use of tampons ,douching ,recent catheterization ,new sexual partner or current catheterization. There is a medical history of kidney stones ,recurrent urinary tract infections and menopause, while there is no history of diabetes ,cur rent or renal disease. The patient denies the use of oral contraceptives ,antibiotics ,hormone replacement therapy or pyridium/uristat. Note for UTI: not really having kidney stone pain or feverEncounter Diagnosis: Urinary tract infection, site not specified (599.0) [facility] Office Visit On: 16-Oct-2009 13:15 Encounter Reason: Follow up acute care visit - The patient feeling better since last seen and improving. Patient has been compliant with instructions. Current medication use: no side effects ,compliant with dosing regime End: 16-Oct-2009 13:48 n and considered effective by patient. Patient sleeps 6 hours per night. Nutrition: balanced diet. The medical issues the patient is following up for include All identified problems below ,URI (pharyngitis) and UTI. Encounter Diagnosis: Hematuria, unspecified (599.70) [facility] Office Visit On: 02-Oct-2009 15:01 Encounter Reason: Hematuria - The onset of the hematuria has been sudden and has been occurring in a recurrent pattern for 2 days. The course has been recurrent. The hematuria is described as mild to moderate. , End: 02-Oct-2009 15:26 [ADDITIONAL REASON] Cough - The onset of the cough has been sudden and 3 days ago. The cough is characterized as dry. The amount of sputum produced is scanty. The cough occurs all the time. The symptom s are aggravated by supine posture and particular position, but not by meals. The symptoms have been associated with hoarseness ,runny nose and sore throat, while the symptoms have not been associated with fever or headache. Encounter Diagnosis: Hematuria, unspecified (599.70), ACUTE PHARYNGITIS (462.), UNSPECIFIED VIRAL INFECTION (079.99) [facility] Office Visit On: 09-May-2009 12:12 Encounter Reason: Neck pain - The onset of the neck pain has been gradual following no specific incident and has been occurring in an intermittent pattern for months. The course has been gradually worsening. The neck leland End: 09-May-2009 12:48 n is described as a moderate dull aching. The neck pain is described as being located in the below ear and sides of cervical spine. The back pain does not radiate There have been no aggravating factors. The pain has not been relieved by anything. The symptoms have been associated with use of anticoagulants (baby asa) ,neck stiffness and headache, while the symptoms have not been associated with chills ,fever ,trauma or use of corticosteroids. 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
--- OUTSIDE RECORDS SUMMARY | 2018-11-03 01:08 | XMS RPT_ITS | Continuity of Care Document ---
:1955 Author Organization [facility] Address [address] [place] [address] Phone Care Team Providers Name Role Phone Mylene Craig CNP Unavailable Dr. Cliff Eubanks Unavailable Chepe ULLAO MD , Chidi Dunlap Unavailable Kylee Mckeon Unavailable Venkatesh PARDO, Hugo Unavailable Marcelo PARDO, Sammy Castillo Unavailable [facility], Milton Tompkins Unavailable Chayo Ku Unavailable Jodi Pinto Unavailable Unavailable Slarb MEDICAL CLAIMS SPECIALIST, Adrienne Unavailable Unavailable Maximino Atkinsa Unavailable Unavailable Long MEDICAL CLAIMS SPECIALIST, Ines L Unavailable Unavailable Unavailable Unavailable Problems [...] Active Deliveries (Parity) Comments: 4 Status: Active Diarrhea (R19.7, 787.91) Status: Active Elevated blood pressure reading (R03.0, [...] light relatedPhonophobiaYawn a lot 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 She checked with Prolia and cost about 600.00 each Takes D3 54042 weekly with alandronate (she stopped alandronate Oct [...] Trigger thumb, right (727.03) Comments: refer to libertad helpedright middle finger and left thumbs. Status: Active Unspecified Diagnosis Status: Active Unspecified Diagnosis Status: Active Unspecified Diagnosis Status: Active UTI symptoms (R39.9, 788.99) Status: Active Vitamin D deficiency (E55.9, 268.9) Status: Active Medications Name Dates Details Alendronate Sodium 70 MG Oral Tablet 1 (one) Tablet weekly for 90 days Quantity: 12 {Tablet} Refills: 1 Ordered:15-Apr-2018 Elea CUSTOMER SERVICE ADMINISTRATOR, Mylene Rust CUSTOMER SERVICE ADMINISTRATOR, Mylene Duenas Start : 15-Apr-2018 Active Align 4 MG Oral Capsule 1 (one) Capsule daily for 0 days Quantity: 30 {Capsule} Refills: 0 Ordered:13-Sep-2018 Kiara GRIFFITH, Mylene Rust [facility], Mylene Duenas Start : 13-Sep-2018 Active Atorvastatin Calcium 10 MG Oral Tablet 1 Tablet daily for 90 days Quantity: 90 {Tablet} Refills: 3 Ordered:19-Jul-2018 Kiara GRIFFITH, Mylene Rust [facility], Myelne Duenas Start : 19-Jul-2018 Active Calcium 500 MG Oral Capsule daily (500 MG) Active Claritin 10 MG Oral Capsule 1 (one) Capsule daily for 0 days Quantity: 30 {Capsule} Refills: 3 Ordered:13-Sep-2018 Kiara GRIFFITH, Mylene Rust [facility], Mylene Duenas Start : 13-Sep-2018 Active Coenzyme Q10 200 MG Oral Capsule [...] 1 for 0 days Refills: 0 Ordered:08-Jan-2011 Italo MADRID Martha Start : 02-Oct-2009 End : 08-Jan-2011 Inactive ASPIRIN, 81MG (Oral Tablet) 1 qd for 0 days Refills: 0 Ordered:08-Jan-2011 Italo MADRID Martha End : 08-Jan-2011 Inactive Augmentin 875-125 MG Oral Tablet 1 (one) Tablet bid for 0 days Quantity: 20 {Tablet} Refills: 0 Ordered:27-Aug-2017 Slarb Adrienne MADRID Start : 10-Aug-2017 End : 27-Aug-2017 Inactive Bactrim DS 800-160 MG Oral Tablet 1 (one) Tablet bid for 7 days Quantity: 14 {Tablet} Refills: 0 Ordered:14-May-2017 Kiara GRIFFITH, Mylene Farmerart GRIFFITH, Yesica Start : 14-May-2017 End : 21-May-2017 [...] days Quantity: 14 {Tablet} Refills: 0 Ordered:28-Apr-2017 Elea CUSTOMER SERVICE ADMINISTRATOR, Mylene Farmera CUSTOMER SERVICE ADMINISTRATOR, Yesica Start : 28-Apr-2017 End : 05-May-2017 Inactive CIPRO, 250MG (Oral Tablet) 1 (one) Tablet bid for 3 days Quantity: 6 {Tablet} Refills: 0 Ordered:02-Oct-2009 Elea CUSTOMER SERVICE ADMINISTRATOR, Mylene Farmera CUSTOMER SERVICE ADMINISTRATOR, Yesica Start : 02-Oct-2009 End : 05-Oct-2009 Inactive CIPROFLOXACIN HCL, 500MG (Oral Tablet) 1 (one) Tablet bid for 10 days Quantity: 20 {Tablet} Refills: 0 Ordered:18-Dec-2014 Kiara GRIFFITH, Mylene Rust CNP, Mylene Duenas Start : 18-Dec-2014 End : 28-Dec-2014 Inactive [...] days Quantity: 8 {Tablet} Refills: 0 Ordered:11-Nov-2015 Kiara GRIFFITH, Mylene Rust CNP, Mylene Duenas Start : 11-Nov-2015 End : 13-Nov-2015 Inactive Comments:pt got shot of torodol today Ocuflox 0.3 % Ophthalmic Solution 1-2 gtts Metric Drop Metric Drop q2-4 h x 2 days 1-2 gtts qid x 5 days for 0 days Quantity: 1 {Bottle} Refills: 0 Ordered:27-Aug-2017 SlaAdrienne esposito LPN Start : 13-Jan-2016 End : 27-Aug-2017 Inactive [...] days Quantity: 21 {Tablet} Refills: 0 Ordered:08-Jan-2011 Kiara GRIFFITH, Mylene Rust [facility], Mylene Duenas Start : 08-Jan-2011 End : [...] Quantity: 8 {Tablet} Refills: 0 Ordered:02-Oct-2009 Kiara CUSTOMER SERVICE ADMINISTRATOR, Mylene Rust [facility], Mylene Duenas Start : 02-Oct-2009 End : 03-Oct-2009 Inactive Vitamin D (Cholecalciferol) 1000 UNIT Oral Capsule 5 Capsule daily for 0 days Quantity: 30 {Capsule} Refills: 0 Ordered:15-Apr-2018 Adrienne Tirado LPN Start : 10-Dec-2017 End : 15-Apr-2018 Inactive Vitamin D3 24270 UNIT Oral Capsule 1 (one) Capsule Capsule [...] End : 19-Jul-2018 Discontinued CALCIUM + D, 099-573KA-KLMC (Oral Tablet) 1 qd for 0 days Refills: 0 Ordered:26-Mar-2014 SHANKAR Cleary End : 26-Mar-2014 Discontinued Comments:This order discontinued per [facility]. Calcium 1500 End : 19-Jul-2018 Discontinued CELEXA, 10MG (Oral Tablet) 1 Tablet daily for 0 days Quantity: 90 {Tablet} Refills: 3 Ordered:26-Mar-2014 Yuki Sharp MD Start : 26-Mar-2014 End : 26-Mar-2014 Discontinued CORTISPORIN, 3.5-41273-9 (Otic Solution) 4 Metric Drop tid for 0 days Quantity: 1 {Bottle} Refills: 0 Ordered:18-Dec-2014 Alec Tirado LPNa Start : 24-Oct-2014 End : 18-Dec-2014 Discontinued Cranberry End : 19-Jul-2018 Discontinued EXTRA STRENGTH PAIN RELIEVER, 029-304-38WR (Oral Tablet) 2 qd prn headaches (250-250-65 MG) End : 18-Dec-2014 Discontinued Extra strenth generic excedrine End : 19-Jul-2018 Discontinued MULTIVITAMINS (Oral Capsule) 1 Capsule qd for 0 days Quantity: 30 {Capsule} Refills: 0 Ordered:18-Dec-2014 Adrienne Tirado LPN Start : 18-Sep-2013 End : 18-Dec-2014 Discontinued NASONEX, 50MCG/ACT (Nasal Suspension) 2 (two) Puff daily for 0 days Quantity: 1 {Bottle} Refills: 0 Ordered:18-Dec-2014 Alec Tirado LPNa Start : 24-Oct-2014 End : 18-Dec-2014 Discontinued PriLOSEC 10 MG Oral Capsule Delayed Release 1 (one) Capsule DR Capsule DR daily for 90 days Quantity: 90 {Capsule} Refills: 0 Ordered:25-Aug-2016 Millyrb JULIUS Adrienne Start : 25-Aug-2016 End : 27-Aug-2017 Discontinued Comments:This order discontinued per [facility]. PriLOSEC 10 MG Oral Capsule Delayed Release 1 (one) Capsule DR Capsule DR daily for 90 days Quantity: 90 {Capsule} Refills: 0 Ordered:25-Aug-2016 Millyrb JULIUS Adrienne Start : 25-Aug-2016 End : 27-Aug-2017 Discontinued VITAMIN C ER, 1000MG (Oral Tablet Extended [...] Status: Inactive as of 27-Aug-2017 Vaccine for kzivoroufw-zbwvgum-mnrjryymf with poliomyelitis (Z23, V06.3) Status: Inactive as [...] Ku Right Middle finger Date Value Details 07-Sep-2018 Echocardiogram Complete Result: Comments: See Note; NOTES: [facility] Cardiovascular Services [address] [place] [address] Echo Complete 09/07/18 1511 MR#: [id number] Acct: [id number] Name: SHAVON BURROWS Rep #: [id number] : 1955 63 From: Chidi Pagan MD Attending Dr: Mylene Craig NP Status: REG CLI Ordering Dr: Mylene Craig NP-C Date: 09/07/18 Location: [facility] Sex: F C Admitted: Reason For S tudy: SOB Procedure This was a 2D Doppler, Color Flow transthoracic echocardiogram. Exam performed in department. Left Ventricle Normal size and thickness. The estimated ejection fraction is 65 %. Sta ge 2 diastolic dysfunction. No regional wall motion abnormalities noted. Right Ventricle Normal size and thickness. Normal systolic function. Atria Normal left atrium. Normal right atrium. Normal atr ial septum. Mitral Valve The mitral valve is structurally normal. No prolapse or stenosis seen. Mild (1+) mitral valve insufficiency. Tricuspid Valve Normal tricuspid valve. Mild (1+) tricuspid valve insufficiency. Right ventricular systolic pressure estimated to be 31 mmHg. Aortic Valve Trisinus/trileaflet aortic valve. Mild diffuse aortic valve thickening. Trivial aortic valve insufficiency. Pul brandon Valve Normal pulmonic valve. Trivial pulmonic valve insufficiency. Great Vessels Normal aortic root. Normal arch. Normal inferior vena cava. Inferior vena cava collapse with sniff. Pericardium/ Pleural No pericardial effusion. MMode/2D Measurements AND Calculations LVIDd: 3.9 cm IVSd: 1.1 cm Ao root diam: 2.9 cm LVIDs: 2.7 cm LVPWd: 0.78 cm RVDd: 3.2 cm FS: 32.1 % LAV(MOD-bp): 54.6 ml LVAd ap4: 30.7 cm2 SV(MOD-sp4): 63.1 ml LAV(MOD-bp) Indexed: 29.9 ml/m2 EDV(MOD- sp4): 94.4 ml LAV(MOD-sp2): 62.3 ml EDV(sp4-el ): 99.7 ml LAV(MOD-sp4): 46.6 ml LVAs ap4: 15.3 cm2 ESV(MOD-sp4): 31.4 ml ESV(sp4- el): 33.4 ml EF(MOD-sp4): 66.8 % EF(sp4-el): 66.5 % SV(sp4-el): 66.4 ml LA A4 area: 17.3 cm2 LA dimension(2D): 3.8 cm RA A4 area: 15.6 cm2 Time Measurement s MV dec time: 0.19 sec Doppler Measurements AND Calculations MV E max zulema: 102.6 cm/sec Lat Peak E' Zulema: 9.6 cm/sec Med Peak E' Zulema: 7.8 cm/sec MV A max zulema: 98.8 cm/sec E/E' lat: 10.6 E/E' med: 13.1 MV E/A: 1.0 Ao V2 max: 176.2 cm/sec AI max zulema: 385.7 cm/sec LV V1 max: 152.0 cm/sec Ao max P.4 mmHg AI max P .5 mmHg LV V1 max P.2 mmHg AI dec slope: 181.2 cm/sec2 AI P1/2t: 623.3 msec PA V2 max: 108.6 cm/sec PI end-d zulema: 67.7 cm/sec TR max zulema: 253.2 cm/sec TR max P.7 mmHg Interpretation Summary The estimated ejection fraction is 65 %. Stage 2 diastolic dysfunction. Mild (1+) mitral valve insufficiency. Mild (1+) tricuspid valve insufficiency. Right ventricular systolic pressure estimated to be 31 mmHg. Trivial aortic valve insufficiency. Compared to echo report dated 04/08/2015, no appreciable changes noted. Ordering Physician: Mylene Craig Referring Physician: Mylene Craig Performed By: Gissel Coleman [facility] S 09/07/18 1620 Date Chidi Pagan MD CC: Mylene Craig NP Date Dictated: 09/07/18 1511 Date Transcribed: 09/07/18 1620 Executive Steward: Signed 06-Aug-2018 Chest 1 View (Portable) Result: Comments: See Note; NOTES: [facility] Imaging Services [address] [place] [address] Chest 1 View (Portable) MR#: [id number] Acct: [id number] Name: YARELIS BURROWS Rep #: [id number] : 1955 F 63 From: Maico Lehman MD PCP: Mylene Craig NP Status: REG ER Study: Chest 1 View (Portable) Date of Exam: 08/06/18 Exam# [id number] Ordering Dr: Laurie Garber MD STUDY: X [...] CC: Mylene Craig NP; Laurie Garber MD Executive Steward: Signed 04-Aug-2018 Chest PA and Lateral Result: Comments: See Note; NOTES: [facility] Imaging Services [address] [place] [address] Chest PA and Lateral MR#: [id number] Acct: [id number] Name: YARELIS BURROWS Rep #: [id number] : 1955 F 63 From: Maico Lehman MD PCP: Mylene Craig NP Status: REG CLI Study: Chest PA and Lateral Date of Exam: 08/04/18 Exam# [id number] Ordering Dr: Katarina Bourgeois MONOLOGIST-Iram STUDY: X-RAY CHEST REASON FOR EXAM: Female, [...] Service support , CC: Mylene Craig NP; TOMEKA Bourgeois Executive Steward: Signed 10-Mar-2018 OT D/C Summary Result: Comments: See Note; NOTES: [facility] Occupational Therapy [facility] [place] [address] Fax REHABILITATION SERVICES DIS CHARGE SUMMARY MR#: [id number] Acct: [id number] Name: YARELIS BURROWS Rep #: [id number] : 1955 62 From: Marlene Sexton Referring [...] but Pt. is able to straighten actively. St rength assessment completed on date and is as follows; nuclear weapons mechanical specialist 54, 86; lateral R 17, L 15; [...] Resume Hobbies Goal:: Yarelis to increase R nuclear weapons mechanical specialist to that of L nuclear weapons mechanical specialist 2/3 trials 75% if the time to promote increased abil ity to complete ADL/AIDls and b hand manipulation by d/c. Goal:: Yarelis to increase R MF MCP ROM to that of equal value of L nonaffected have 2/3 trials 75% of the time by d/c. Goal:: Vatherien to robert ve 0/10 pain consistently in [...] R MF vs L MF are similar. Trading Manager is to continue to progress through use and strengthening protocol through HEP. SHe is to call with questions/concerns. - D/C Informati on If there are questions or concerns regarding this patient's occupational therapy, please fell free to call me at [phone]. Thank you for the referral of this patient. Sincerely, Marlene Calvert rs <Electronically signed by Marlene Sexton > 03/10/18 1402 CC: Mylene Craig MONOLOGIST; Chayo Ku DO KMB Signed 02-Feb-2018 Surgery Visit Report Result: Comments: See Note; NOTES: [facility] [address] [place] [address] OFFICE VISIT Date of Service: 02/01/18 MR#: [id number] Acct: [id number] Name: YARELIS RAMON Rep #: [id number] : 1955 Provider: Jenise Julian PA-C Age/Sex: 62/F Location: [facility] Status: Signed Intake Intake Visit Reasons: f/u paulino 01/25/2018 dp Radial Drill Press Set Up Operator Required: No Is patient in pain?: No [...] Operative Report Result: Comments: See Note; NOTES: [facility] Medical Records Department [address] [place] [address] Operative Report 01/25/18 1134 MR#: [id number] Acct: [id number] Name: ANDREW BURROWS Rep #: [id number] : 1955 62 From: Chidi Mo MD PCP: Mylene Craig NP Status: [facility] Y [place] [facility] Problem List (1) Calculus of gallbladder with chronic cholecystitis without ob struction Status: Acute Report of Operation Date of Procedure: 01/25/18 Pre-Operative Diagnosis: k 80.10 calculus of the gallbladder with chronic cholecystitis without obstruction Post-Operative Diagno sis: Same Surgery/Procedure Performed:: 78582 laparoscopic cholecystectomy Type of Anesthesia:: General Anesthesiologist: David Berry Description of Procedure: Patient was brought into the operating r oom and placed in the supine position. Under excellent general anesthetic the abdomen was sterilely prepped and draped in the usual fashion. Local was injected infraumbilically and dissection was vanessa d down to the fascia the fascia was grasped with a [place] varies needle was placed inside the abdomen [...] Discharge Instruction Result: Comments: See Note; NOTES: [facility] Medical Records Department [address] [place] [address] Instructions for Home/Discharge Instructions 01/25/18 1133 MR#: [id number] Acct: [id number] Name: YARELIS BURROWS Rep #: [id number] : 1955 62 From: Chidi Mo MD PCP: Mylene Craig NP Status: REG SDC Discharge Diet: Light diet - advance as [...] With: Chidi Mo MD - Please call [phone] to schedule an appointment. When: 7 days after your surgery. 01/25/18 1133 <Electronically signed by Chidi bishop MD> Date Chidi Mo MD CC: Mylene Craig NP 21-Jan-2018 12 Lead Electrocardiogram Result: Comments: See Note; NOTES: [facility] Cardiovascular Services [address] [place] [address] 12 Lead EKG 01/20/18 0837 MR#: [id number] Acct: [id number] Name: YARELIS BURROWS Rep #: [id number] : 1955 62 From: Anthony Ojeda MD Attending Dr: Chidi Mo MD Status: PRE SDC Ordering Dr: Chidi Mo MD Date: 01/20/18 [place] [facility] Sex: F C Admitted: Test Reason : PRE OP Blood Pressure : / mmHG Vent. Rate : 064 BPM Atrial Rate : 064 BPM P-R Int : 130 ms QRS Dur : 092 ms QT Int : 396 ms P-R-T Axes : 013 028 024 degrees QTc Int : 408 ms Normal sinus rhythm Normal ECG Confirmed by ANTHONY OJEDA MD ([id number]), book or script editor CAITLIN NIELSON ([id number]) on 01/21/2018 11:35:11 AM Referred By: Chidi Mo Confirmed By:ANTHONY OJEDA MD 01/21/18 1135 Date Anthony Ojeda MD CC: Mylene Craig MONOLOGIST; Chidi Mo MD Signed 31-Dec-2017 SCREENING MAMM (CAD), BILAT Result: Comments: See Note; NOTES: [facility] Imaging Services [address] [place] [address] SCREENING MAMM (CAD), BILAT MR#: [id number] Acct: [id number] Name: YARELIS BURROWS #: [id number] : 1955 F 62 From: Fransisco Aaron MD PCP: Mylene Craig NP Status: REG CLI Study: SCREENING MAMM (CAD), BILAT Date of Exam: 12/31/17 Exam# [id number] Ordering Dr: Mylene Craig MAMMOGR APHY - [...] Service support , CC: Mylene Craig NP Executive Steward: Signed 30-Dec-2017 Surgery Visit Report Result: Comments: See Note; NOTES: [facility] [address] [place] [address] OFFICE VISIT Date of Service: 12/30/17 MR#: [id number] Acct: [id number] Name: YARELIS LINDSEY Rep #: [id number] : 1955 Provider: Chidi Mo MD Age/Sex: 62/F Location: [facility] Status: Signed Intake Vital Signs12/30/17 Height 5 ft 4 in 12/30/17 Weight: 177 lb Intak e Visit Reasons: cholelithiasis Radial Drill Press Set Up Operator Required: No Is patient in pain?: No Allergies No Known Allergies Allergy (Verified 12/30/17 13:23) Medications coenzyme Q10 200 mg capsule 200 mg PO ON CE 10/15/17 [History Confirmed 12/30/17] atorvastatin 20 mg tablet 10 mg PO QDAY tab 12/30/17 [History Confirmed 12/30/17] cholecalciferol (vitamin D3) 10,000 unit capsule 10,000 unit PO QDAY 12/30/17 [ History Confirmed 12/30/17] PFSH Medical History Esophageal reflux (Chronic) Hyperlipidemia [...] ultrasound was obtained. This was completed at [facility] on 12/16/2017. This showed a normal [...] person, oriented to place, oriented to time [facility] Head: normocephalic, atraum atic Ears: external [...] 16-Dec-2017 Liver Result: Comments: See Note; NOTES: [facility] Imaging Services [address] [place] [address] Liver MR#: [id number] Acct: [id number] Name: YARELIS BURROWS Rep #: [id number] : F 62 From: Armen Slade MD PCP: Mylene Craig NP Status: REG CLI Study: Liver Date of Exam: 12/16/17 Exam# [id number] Ordering Dr: Mylene Craig STUDY: ABDOMINAL ULTRASOUND [...] Armen Slade MD at 14:34 EST Tel [phone], Service support , CC: Mylene Craig NP Executive Steward: Signed 09-Dec-2017 OT General Evaluation Result: Comments: See Note; NOTES: [facility] Occupational Therapy [facility] [address] [place] [address] Fax REHABILITATION SERVICES INI TIAL EVALUATION MR#: [id number] Acct: [id number] Name: YARELIS BURROWS Rep #: [id number] : 1955 62 From: Marlene Sexton Referring Dr.: Chayo Ku DO Status: REG R Insurance: [employer] Date: SELF PAY INSURANCE Patient's Visit Information [...] DIP: MF 0-68, L 0-61 - Strength Trading Manager: R 39, L 52 Lateral Pinch: R 7, L 11 Tripod Pinch: R 6, L 8 Tip-to-Tip Pinch: R 6, L 4 - Edema Proximal Phalanx: MF R 7.5 cm, L 6.8 cm - Sensation Sensation Comments: WFL; deneis numbness and tingling. - Hand/Wrist Evaluation Total Score of Pain AND Functiona l Sections: 18 - Goals Goal:: Yarelis to increase R nuclear weapons mechanical specialist to that of L nuclear weapons mechanical specialist 2/3 trials 75% if the time to promote increased ability to complete ADL/AIDls and b hand manipulation by d/c. Goal:: Temibran alston to increase R MF MCP ROM to [...] by d/c. - Rehabilitation General Assessment: Monae nickiyulissa delfino for evaluation on this date. She [...] 2x /Week Duration: 4 Weeks General Plan: Yarelis Cain, to recieve OT for edema management techniques, decrease scar massage, ROM, strengthening and promoting returnto PLOF. TEXT: Thank you for the opportunity to evaluate your patient. For Medicare and Medicare HMO plans, please review the plan of care and approve it. It will need to be FAXED BACK to us at [phone] for Medicare purposes. Please let me know if there are questions or concerns regarding this plan of care. Physici an Signature: Date: <Electronically signed by Marlene Sexton > 12/09/17 1202 CC: Mylene Craig MONOLOGIST; Chayo Ku DO D KMB Signed For Medicare only, by signing this I certify the plan of care. Physicians Signature Date 02-Dec-2017 Orthopedic Visit Report Result: Comments: See Note; NOTES: [facility] Medicine [address] [place] [address] OFFICE VISIT Date of Service: 12/02/17 MR#: [id number] Acct: [id number] Name: YARELIS BURROWS Rep #: [id number] : 1955 Provider: Chayo Ku DO Age/Sex: 62/F [place] [facility] Status: Signed Intake Intake Visit Reasons: Right [...] by A bhavana Ku DO> Date Chayo Quinn Signature: Date (if applicable) CC: 16-Nov-2017 Orthopedic Visit Report Result: Comments: See Note; NOTES: [facility] [address] [place] [address] OFFICE VISIT Date of Service: 11/11/17 MR#: [id number] Acct: [id number] Name: YARELIS BURROWS Rep #: [id number] : 1955 Provider: Chayo Ku DO Age/Sex: 62/F Location[place] [facility] Status: Signed Intake Intake Visit Reasons: Trigger [...] mg PO ONCE 10/15/17 [History Confirmed 10/19/17] PFSH Medical History (Reviewe d 11/11/17 @ 08:03 [...] was likely lacking full extension from the intermediate triggering, that now she will need to [...] Chayo Ku DO> Date Chayo Ku DO Cosigner Signature: Date (if applicable) CC: 28-Oct-2017 Operative Report Result: Comments: See Note; NOTES: [facility] Medical Records Department [address] [place] [address] Operative Report 10/20/17 0844 MR#: [id number] Acct: [id number] Name: ANDREW BURROWS Rep #: [id number] : 1955 62 From: Chayo Ku DO PCP: Mylene Craig NP Status: [facility] Y [place] [facility] Report of Operation Date of Procedure: 10/20/17 Pre-Operative Diagnosis: righ t middle finger trigger finger Post-Operative Diagnosis: same Surgery/Procedure Performed:: right middle finger a1 joleen release Type of Anesthesia:: Srinivas Del Valle Anesthesiologist: David Berry Estimated Blood Loss (mL): [...] SCDs placed on her bilateral lower extremity. [place] block was initiated and the right arm [...] with concerns This note was generated with [employer] dictation software. It ma y contain incorrect words, spelling, and punctuation that were not noted in checking the note before signing. 10/28/17 1219 <Electronically signed by Chayo Ku DO> Date ___ Chayo Ku DO CC: Mylene Craig MONOLOGIST; Chayo Ku DO Signed 21-Oct-2017 Dexa Bone Density Study () Result: Comments: See Note; NOTES: [facility] Imaging Services [address] [place] [address] Dexa Bone Density Study () MR#: [id number] Acct: [id number] Name: YARELIS BURROWS ep #: [id number] : 1955 F 62 From: Armen Slade MD PCP: Mylene Craig NP Status: REG CLI Study: Dexa Bone Density Study () Date of Exam: 10/21/17 Exam# [id number] Ordering Dr: Mylene Craig STUDY: DUAL ENERGY [...] Armen Slade MD at 12:13 EST Tel [phone], Service support , CC: Mylene Craig NP Executive Steward: Signed 20-Oct-2017 Discharge Instruction Result: Comments: See Note; NOTES: [facility] Medical Records Department [address] [place] [address] Instructions for Home/Discharge Instructions 10/20/17 0843 MR#: [id number] Acct: [id number] Name: YARELIS BURROWS Toni Rep #: [id number] : 1955 62 From: Chayo Ku DO PCP: Mylene Craig NP Status: REG SDC Discharge Diet: No Restrictions - keep dressing [...] Follow Up With: Chayo Ku DO - [phone] 10/20/17 0844 <Electronically signed by Chayo Ku DO> Date __ Chayo Ku DO CC: Mylene Craig NP 19-Oct-2017 Orthopedic Visit Report Result: Comments: See Note; NOTES: [facility] Orthopa[facility]ics AND Sports Medicine [address] [place] [address] OFFICE VISIT Date of Service: 10/15/17 MR#: [id number] Acct: [id number] Name: YARELIS BURROWS Rep #: [id number] : 1955 Provider: Chayo Ku DO Age/Sex: 62/F [facility]: [facility] [facility] Status: Signed Intake Vital Signs10/15/17 Height 5 [...] mg PO ONCE 10/15/17 [History Confirmed 10/19/17] PFSH Medical History Esophageal reflux (Chronic) Hyperlipidemia (Chronic ) Surgical History History of hysterectomy (Inactive) History of tonsillectomy (Inactive) S/P appendectomy (Inactive) Trigger finger (Inactive) Famil y History Father CVA (cerebral vascular accident) Hypertension Heart disease Mother Hypertension Brother Heart disease Social History Smoking Status: Ne gisela smoker HPI right middle finger: Details: YARELIS [...] plan. 10/19/17 0952 <Electronically signed by Chayo Ku DO> Date Chayo Newmanignani Signature: Date (if applicable) CC: 29-Oct-2016 SCREENING MAMM (CAD), BILAT Result: Comments: See Note; NOTES: [facility] Imaging Services [address] [place] [address] Verdana 4d SCREENING MAMM (CAD), BILAT MR#: [id number] Acct: [id number] Name: ANDREW BURROWS Rep #: [id number] : 1955 F 61 From: Armen Slade MD PCP: Mylene Craig Status: REG CLI Study: SCREENING MAMM (CAD), BILAT Date of Exam: 10/29/16 Exam# [id number] Ordering Dr: Manjit Musa MAMMOGRAPHY - BILATERAL [...] delay biopsy of a clinically suspicious abnormality. [id number] Electronically Signed: Armen Slade MD at 8:12 EST Tel [phone], Service support [phone], CC: Mylene Musa Executive Steward: Signed 17-Sep-2016 Finger(s) Min 2 Views Result: Comments: See Note; NOTES: [facility] Imaging Services [address] [place] [address] Verdana 4d Finger(s) Min 2 Views MR#: [id number] Acct: [id number] Name: YARELIS BURROWS Rep #: [id number] : 1955 F 61 From: Donal Austin MD PCP: Yuki Sharp MD Status: REG CLI Study: Finger(s) Min 2 Views Date of Exam: 09/17/16 Exam# [id number] Ordering Dr: Chayo Ku DO STUDY: X-RAY [...] MD at 11:37 EST , Service support [phone], CC: Chayo Ku DO; Yuki Sharp MD Executive Steward: Signed 17-Sep-2016 Hand Min 3 Views Result: Comments: See Note; NOTES: [facility] Imaging Services [address] [place] [address] Verdana 4d Hand Min 3 Views MR#: [id number] Acct: [id number] Name: YARELIS BURROWS Re p #: [id number] : 1955 F 61 From: Donal Austin MD PCP: Yuki Sharp MD Status: REG CLI Study: Hand Min 3 Views Date of Exam: 09/17/16 Exam# [id number] Ordering Dr: Chayo Ku DO STUDY: X- [...] MD at 11:36 EST , Service support [phone], CC: Chayo Ku DO; Yuki Sharp MD Executive Steward: Signed 26-Nov-2015 Abdomen/Pelvis without Cont Result: Comments: See Note; NOTES: [facility] Imaging Services [address] [place] [address] Verdana 4d Abdomen/Pelvis without Cont MR#: [id number] Acct: [id number] Name: YARELIS BURROWS Rep #: [id number] : 1955 F 60 From: Armen Slade MD PCP: Yuki Sharp MD Status: REG CLI Study: Abdomen/Pelvis without Cont Date of Exam: 11/26/15 Exam# [id number]: Jennifer Spencer DO STUDY: CT ABDOMEN AND PELVIS [...] Armen Slade MD at 9:10 EST Tel [phone], Service support [phone], CC: Yuki Sharp MD; Jennifer Spencer DO Executive Steward: Signed 15-Oct-2015 Bilat Scrn Digital AND CAD Result: Comments: See Note; NOTES: [facility] Imaging Services [address] [place] [address] Giseladajn 4d Bilat Scrn Digital AND CAD MR#: [id number] Acct: [id number] Name: YARELIS BURROWS Rep #: [id number] : 1955 F 60 From: Armen Slade MD PCP: Yuki Sharp MD Status: REG CLI Study: Bilat Scrn Digital AND CAD Date of Exam: 10/15/15 Exam# [id number] Ordering Dr: Yuki Sharp MD MAMMOGRAPHY - BILATERAL SCREENING REASON [...] biopsy of a clinically s uspicious abnormality. [id number] Electronically Signed: Armen Slade MD at 7:46 EST Tel [phone], Service support [phone], CC: Yuki Sharp MD Executive Steward: Signed 15-Oct-2015 Dexa Bone Density Study (HP) Result: Comments: See Note; NOTES: [facility] Imaging Services [address] [place] [address] Verdana 4d Dexa Bone Density Study (HP) MR#: [id number] Acct: [id number] Name : YARELIS BURROWS Rep #: [id number] : 1955 F 60 From: Armen Slade MD PCP: Yuki Sharp MD Status: REG CLI Study: Dexa Bone Density Study (HP) Date of Exam: 10/15/15 Exam# [id number]: Yuki Sharp MD STUDY: DUAL ENERGY X-RAY ABSORPTIOMETRY [...] Armen Slade MD at 15:58 EST Tel [phone], Service support [phone], CC: Yuki Sharp MD Executive Steward: Signed 20-May-2015 Gallium ScanWB Tumor/SingleDay Result: Comments: See Note; NOTES: [facility] Imaging Services [address] [place] [address] Nuclear Medicine Report MR#: [id number] Acct: [id number] Name: YARELIS BURROWS Rep #: [id number] : 1955 F 59 From: Karlos Landers DO PCP: Yuki Sharp MD Status: REG CLI Study: Gallium ScanWB Tumor/SingleDay Date of Exam: 05/20/15 Exam# [id number] Ordering Dr: Yuki Sharp MD CLINICAL: 59-year-old female with suspected [...] Karlos Landers DO at 21:27 EDT Tel [phone], Service support [phone], CC: Yuki Sharp MD Executive Steward: Signed 08-Apr-2015 Echocardiogram Complete Result: Comments: See Note; NOTES: [facility] Cardiovascular Services [address] [place] [address] Echo Complete 04/08/15 1408 MR#: [id number] Acct: [id number] Name: YARELIS BURROWS Rep #: [id number] : 1955 59 From: Anthony Ojeda MD Attending Dr: Yuki Sharp MD Status: REG CLI Ordering Dr: Yuki Sharp MD Date: 04/08/15 Location: [facility] Sex: F C Admitted: Procedure This was [...] Mild (1+) tricuspid valve insufficiency. Ordering Physician: Yuki Sharp Performed By: Delaney Wyatt RDCS, RVT 04/08/15 1543 Date Anthony Ojeda MD CC: Yuki Sharp MD Date Dictated: 04/08/15 1408 Date Transcribed: 04/08/15 1543 Executive Steward: Signed 03-Apr-2015 Bone Scan Whole Body Result: Comments: See Note; NOTES: [facility] Imaging Services [address] [place] [address] Nuclear Medicine Report MR#: [id number] Acct: [id number] Name: YARELIS BURROWS Rep #: [id number] : 1955 F 59 From: Karlos Landers DO PCP: Yuki Sharp MD Status: REG CLI Study: Bone Scan Whole Body Date of Exam: 04/03/15 Exam# [id number] Ordering Dr: Yuki Sharp MD CLINICAL: 59-year-old female with reported [...] Karlos Landers DO at 8:10 EDT Tel [phone], Service support [phone], CC: Yuki Sharp MD Executive Steward: Signed 26-Sep-2014 Bilat Scrn Digital AND CAD Result: Comments: See Note; NOTES: [facility] Imaging Services [address] [place] [address] Breast Imaging Report MR#: [id number] Acct: [id number] Name: YARELIS BURROWS #: [id number] : 1955 F 59 From: Armen Slade MD PCP: Yuki Sharp MD Status: REG CLI Study: Bilat Scrn Digital AND CAD Date of Exam: 09/26/14 Exam# [id number] Ordering Dr: Luis Sharp MD MAMMOGRAPHY - [...] Armen Slade MD at 7:28 EST Tel [phone], Service support [phone], CC: Yuki Sharp MD Executive Steward: Signed 05-Apr-2014 Kidney and Bladder Result: Comments: See Note; NOTES: [facility] Imaging Services [address] [place] [address] Ultrasound Report MR#: [id number] Acct: [id number] Name: YARELIS BURROWS Rep #: [id number] : 1955 F 58 From: Justyn Neville PCP: Yuki Sharp MD Status: REG CLI Study: Kidney and Bladder Date of Exam: 04/05/14 Exam# [id number] Ordering Dr: Yuki Sharp MD STUDY: R ENAL ULTRASOUND - [...] at 2:00 EDT Tel , Service support [phone], CC: Yuki Sharp MD Executive Steward: Signed 21-Mar-2014 Abdomen Single View Result: Comments: See Note; NOTES: [facility] Imaging Services [address] [place] [address] Radiology Report MR#: [id number] Acct: [id number] Name: YARELIS BURROWS Rep #: [id number] : 1955 F 58 From: Armen Slade MD PCP: Status: REG CLI Study: Abdomen Single View Date of Exam: 03/21/14 Exam# [id number] Ordering Dr: Mylene Craig STUDY: X-RAY - [...] Armen Slade MD at 12:51 EDT Tel [phone], Service support [phone], RAD/Abdomen Single View IMPRESSION: Stable calcifications overlying both kidneys. Cholelithiasis. Electronically Signed: Armen Slade MD at 12:51 EDT Tel [phone], Service support [phone], CC: Mylene Craig Executive Steward: Signed 09-Oct-2013 PT Letter Result: Comments: See Note; NOTES: [facility] [address] [place] [address] Fax Yuki Sharp MD [address] , [address] [place] [address] Sharp: Yarelis Tyler Singletonman, date of , 1955, was seen for a massotherapy evaluation on November 02, 2012, with a diagnosis of tension headach es. This patient was treated with 6 sessions of massage therapy, which consisted of kaqgvlbk-yn-sjmx tissue full body massage. Myofacial release and muscle stripping were incorporated into the mas annamarie as well as the heat pack to loosen muscles. Due to time constraints with insurance, at this time, I would discharge this patient from our care at [facility] facility . Sincerely, Libby Marie LMT T: NTS JOB: [id number] <Electronically signed by Libby Marie > 10/09/13 1704 CC: -Aug-2013 Bilat Scrn Digital & CAD Result: Comments: See Note; NOTES: [facility] Imaging Services [address] [place] [address] Breast Imaging Report MR#: [id number] Acct: [id number] Name: YARELIS BURROWS #: [id number] : 1955 F 58 From: Armen Slade MD PCP: Status: REG CLI Exam# [id number] Ordering Dr: Yuki Sharp MD MAMMOGRAPHY - BILATERAL SCREENING REASON [...] 30, 2013 at 7 :48:44 AM EST [phone] Electronically Signed GP/GP If you are the referring physician and would like to consult with the radiologist who provided this interpretation, please contact Armen Slade M.D. at [phone]. If this radiologist is unavailable, you will be directed to another radiologist to assist. If you are a patient with a question regarding this report, please contact your referring physician directly. Professional Interpretation Provided By: [employer], Phone , These documents contain legally protected [...] return or destruction of these documents. CC: Yuki Sharp MD Executive Steward: Signed 29-Aug-2013 Dexa Bone Density Study (HP) Result: Comments: See Note; NOTES: [facility] Imaging Services [address] [place] [address] Bone Density Report MR#: [id number] Acct: [id number] Name: YARELIS BURROWS Rep #: [id number] : 1955 F 58 From: Armen Slade MD PCP: Status: REG CLI Study: Dexa Bone Density Study (HP) Date of Exam: 08/29/13 Exam# [id number] Ordering Dr: Yuki Sharp MD STUDY : DUAL ENERGY X-RAY [...] August 30, 2013 at 12:10:19 PM EST [phone] Electronically Signed GP/GP If you are the referring physician and would like to consult with the radiologist who provided this interpretation, please contact Armen Slade M.D. at [phone]. If this radiologist is unavailable, you will be directed to another ra diologist to assist. If you are a patient with a question regarding this report, please contact your referring physician directly. Professional Interpretation Provided By: [employer], Phone , These documents contain legally protected [...] return or destruction of these documents. CC: Yuki Sharp MD Executive Steward: Signed Family History Unknown Family Member Name [...] Active Current Work/Study Status Comments: Full-time, [employer] Status: Active Exercise History Comments: Light Status: Active Living Situation Comments: , Lives with spouse Status: Active No Drug Use Status: Active Non Smoker/No Tobacco Use Status: Active Tobacco use: Never smoker. Status: Active Smoking Status Name Dates Details Never smoker Vital Signs Date Test Result Details :16 Temperature 97.4 f Comments: Method: Temporal Pulse 61 /min Comments: Pattern: Regular Respiration Rate 16 [...] kg/m2 Body Surface Area Calculated 1.85 m2 :45 Temperature 97.9 f Comments: Method: Temporal [...] kg/m2 Body Surface Area Calculated 1.85 m2 :03 Pulse 76 /min Comments: Pattern: Regular Respiration [...] Height 0 in Head Circumference 0.00 cm : Temperature 97.8 f Comments: Method: Undefined Pulse 76 /min Comments: Pattern: Regular Respiration Rate 18 /min Comments: Pattern: Undefined BP Systolic 126 mm[Hg] Comments: Patient Position: Sitting; Cuff Location: Left Arm; Cuff Size: Large BP Diastolic 80 mm[Hg] Comments: Patient Position: Sitting; Cuff Location: Left Arm; Cuff Size: Large Weight 0 lb Height 0 in Head Circumference 0.00 cm 8-Qcj-433403:46 Pulse 74 /min Comments: Pattern: Regular Respiration Rate 16 /min Comments: Pattern: Unlabored BP Systolic 122 mm[Hg] Comments: Patient Position: Sitting; Cuff Location: Left Arm; Cuff Size: Large BP Diastolic 84 mm[Hg] Comments: Patient Position: Sitting; Cuff Location: Left Arm; Cuff Size: Large Weight 166 lb Height 0 in Head Circumference 0.00 cm Results Date Description Value Details 36-Jox-432149:15 Basic Metabolic Profile (BMP) Comments: [facility] [address] [place], [place], [address] GAP 5 (Normal) Range: 5-15 CO2 31.0 [...] A.D.A. criteria.Please note revised GLUCOSE reference range igdwidqmz64/02/2018. 60-Qbg-296271:15 CBC W/Diff, Automated Comments: [facility] [address] [place], [place], [address] Absolute Lymph 1.37 {X10_3/ul} (Normal) Range: 0.83-4.51 [...] 4.2-5.4 WBC 7.4 K/mm3 (Normal) Range: 4.4-11.0 44-Pdt-120367:15 Troponin-I Comments: [facility] [address] [place], [place], [address] TROPONIN-I < 0.015 ng/mL (Normal) Comments: TROPONIN-I EXPECTED VALUES <0.045 Negative 0.045 - 0.590 Consistent with Cardiac Damage > OR = 0.600 Critical Value Not every elevated troponin is indicative of GA. T hesevalues should be used with clinical judgement in examiningthe patient's clinical picture for diagnosis. To establisha diagnosis of GA versus myocardial injury, there must be ademonstrated rise and/ or fall in the troponin values, inaddition to ischemic symptoms, EKG changes, new regionalwall motion abnormality, and/or angiographical evidence. PLEASE NOTE: REFERENCE RANGES EDITED 02/21/1804-Aug-201868-Pse-400302:29 D-Dimer Quantitative (DVT/PE) Comments: [facility] [address] [place], [place], [address] D-DIMER QUANT 0.27 {FEU/ug/m} (Normal) Range: 0.27-0.49 Comments: NORMAL D-Dimer level (<0.50) indicates no DVT or PE. :08 CBC, Platelets & Auto Diff Comments: PATIENT WAS FASTINGPERFORMED BY: LabCoPSE&G [facility] Special[facility] HospitalRtlugk4500 [facility] [id number] ([id number]) Immature Grans (Abs) 0.0 {x10E3/uL} (Normal) Range: [...] {x10E3/uL} (Normal) Range: 3.4-10.8 :08 Lipid Panel (02476) Comments: PATIENT WAS FASTINGPERFORMED BY: musiXmatchCoPSE&G Children's Specialized HospitalSunjvd0213 [facility] [id number] LDL/HDL Ratio 2.9 {ratio} (Normal) Range: 0.0-3.2 [...] Panel, Comprehensive Comments: PATIENT WAS FASTINGPERFORMED BY: LabCoPSE&[facility] Special[facility] HospitalPgbqmm5383 [facility] [id number] (11480) ALT (SGPT) 27 [iU]/L (Normal) Range: 0-32 [...] 8-27 Glucose 91 mg/dL (Normal) Range: 65-99 76-Tfj-41403:0 GALLBLADDER See Note (Normal) Comments: [facility] [address] [place], [address] 0 Comments: Patient: YARELIS BURROWS : 1955 (62/F) Acct Num: [id number] Phys: Chepe PARDO,Chidi Unit Num: [id number] Loc: [facility] Specimen: [id number] Received: 01/25/181515 Spec Ty pe: GALLBLADDE TISSUES [...] measures up to 0.2 cm in thickness. Software Controls Engineer sections from the gallbladder and the cystic duct are submitted in one cassette. / [place] 01/25/18 TC:3 CPT: 99642 HEADER OPERATION: Laparoscopic cholecystectomy PRE-OP DIAGNOSIS: Calculus of gallbladder with chronic cholecystitis without obstruction TISSUE SUBMITTED: Adriel avalos MICROSCOPIC DESCRIPTION Slides are reviewed. MICROSCOPIC DIAGNOSIS Gallbladder: Chronic cholecystitis and cholelithiasis. [place] 01/26/18 Signed Osmany Velarde 01/26/18 <signature on file> 11-Lio-89764:18 CBC-Complete Blood Cnt No Diff Comments: [facility] [address] [place], [place], [id number] MPV 11.2 fL (Normal) Range: 6.2-12.0 PLT [...] 4.2-5.4 WBC 3.3 K/mm3 (Abnormal) Range: 4.4-11.0 46-Vws-08792:11 HEPATIC FUNCTION PANEL Comments: PATIENT NOT FASTINGPERFORMED BY: [facility]rapeuticsUNC [facility] [id number] (41882) ALT (SGPT) 20 [iU]/L (Normal) Range: 0-32 AST (SGOT) 17 [iU]/L (Normal) Range: 0-40 Alkaline Phosphatase 78 [iU]/L (Normal) Range: 39-117 Bilirubin, Direct 0.17 mg/dL (Normal) Range: 0.00-0.40 Bilirubin, Total 0.9 mg/dL (Normal) Range: 0.0-1.2 Albumin 4.4 g/dL (Normal) Range: 3.6-4.8 Protein, Total 6.8 g/dL (Normal) Range: 6.0-8.5 11-Oiu-25944:11 PARATHORMONE (18128) Comments: PATIENT NOT FASTINGPERFORMED BY: Music[employer] HospitalSecured MailUNC [facility] [id number] PTH, Intact 45 pg/mL (Normal) Range: 15-65 :11 CALCIUM SERUM (00044) Comments: PATIENT NOT FASTINGPERFORMED BY: [facility] [id number] Calcium 9.0 mg/dL (Normal) Range: 8.7-10.3 :35 HEPATITIS PANEL (25781) Comments: PATIENT NOT FASTINGPERFORMED BY: [facility]6370 [facility] [id number] Hep C Virus Ab <0.1 {s/co_ratio} (Normal) Range: 0.0-0.9 Comments: Negative: < 0.8 Indeterminate: 0.8 - 0.9 Positive: > 0.9 . The CDC recommends that a positive HCV antibody result be followed up with a HCV Nucleic Acid Amplification test (507106). Hep B Core Ab, IgM Negative (Normal) HBsAg Screen Negative (Normal) Hep A Ab, IgM Negative (Normal) :35 NGHQZ-VZNLPFXPCME-HXCPR (28025) Comments: PATIENT NOT FASTINGPERFORMED BY: [facility]6370 [facility] [id number] AFP, Serum, Tumor Marker 8.0 ng/mL (Normal) Range: 0.0-8.3 Comments: Alexandra ECLIA methodology :49 Urinalysis, Office (69313) URINE UROBILINGN JEANNINE TIMED 2 mg/dL (Normal) [...] With Differential/Platelet Comments: PATIENT WAS FASTINGPERFORMED BY: [facility] [id number] Immature Grans (Abs) 0.0 {x10E3/uL} (Normal) Range: [...] 3.77-5.28 WBC 5.7 {x10E3/uL} (Normal) Range: 3.4-10.8 10-Fux-75222:15 Comp. Metabolic Panel (14) Comments: PATIENT WAS FASTINGPERFORMED BY: LabCoPSE&[facility] Specialized HospitalNpnmyu6029 [facility] [id number] ALT (SGPT) 91 [iU]/L (Abnormal) Range: 0-32 [...] With LDL/HDL Comments: PATIENT WAS FASTINGPERFORMED BY: [facility]StitchuColumb[facility] [id number] Ratio LDL/HDL Ratio 1.6 (Normal) Range: 0.0-3.2 [...] Microscopic Examination Comments: PATIENT WAS FASTINGPERFORMED BY: Music[facility] [id number] Bacteria Few (Normal) Mucus Threads Present (Normal) Epithelial Cells (non 0-10 {/hpf} Range: 0 - 10 renal) (Normal) RBC 0-2 {/hpf} (Normal) Range: 0 - 2 WBC 11-30 {/hpf} Range: 0 - 5 (Abnormal) TSH 2.840 {uIU/mL} Comments: PATIENT WAS FASTINGPERFORMED BY: [employer] [facility] [id number] :15 (Normal) Range: 0.450-4.500 93-Bnp-05854:15 Urinalysis, Complete Comments: PATIENT WAS FASTINGPERFORMED BY: musiXmatchKindred HospitalUounor0150 [facility] [id number] Microscopic Examination See below: (Normal) Comments: Microscopic was indicated and was performed. Nitrite, Urine Positive (Abnormal) Urobilinogen,Semi-Qn 0.2 mg/dL (Normal) Range: 0.2-1.0 Bilirubin Negative (Normal) Occult Blood Negative (Normal) Ketones Negative (Normal) Glucose Negative (Normal) Protein Negative (Normal) WBC Esterase 2+ (Abnormal) Appearance Clear (Normal) Urine-Color Yellow (Normal) pH 7.5 (Normal) Range: 5.0-7.5 Specific [place] 1.015 (Normal) Range: 1.005-1.030 :06 URINE YAIR CULTURE-IDENTIFICATN Comments: PATIENT NOT FASTINGPERFORMED BY: Post.[employer].Ship Bmasqj9479 [facility] [id number] Information: SRC: (64406) Antimicrobial MIHEAD (Normal) Comments: S = Susceptible; [...] mL (Abnormal) Urine Final report Culture,Comprehensive (Abnormal) 04-Bbu-855005:41 Urinalysis, Office (24535) UA - LEUKOCYTE ESTERASE Small (Normal) UA - NITRITE Negative (Normal) URINE UROBILINGN JEANNINE TIMED 2 mg/dL (Normal) UA - PROTEIN Negative mg/dL (Normal) UA - PH 7 (Normal) UA - BLOOD Negative (Normal) UA - SPECIFIC GRAVITY 1.020 (Normal) UA - KETONES Negative mg/dL (Normal) UA - BILIRUBIN Negative (Normal) UA - GLUCOSE Negative (Normal) :07 MAGNESIUM (16784) Comments: PATIENT NOT FASTINGPERFORMED BY: [facility] Fvrygy6186 [facility] [id number] Magnesium, Serum 2.1 mg/dL (Normal) Range: 1.6-2.3 :07 POTASSIUM SERUM (23359) Comments: PATIENT NOT FASTINGPERFORMED BY: [facility] Rfwfxz3544 [facility] [id number]; OV today Potassium, Serum 3.7 mmol/L (Normal) Range: 3.5-5.2 :32 Culture, Urine Comments: [facility] [address] [place], [place], [address] CUUR See Note (Normal) Comments: Urine CultureBelow infection level. ORGANISM 1: Gram negative rodColony Count <1000 :30 CBC W/Diff, Automated Comments: [facility] [address] [place], [place], [address] Absolute Lymph 1.01 {X10_3/ul} (Normal) Range: 0.83-4.51 [...] 4.2-5.4 WBC 4.0 K/mm3 (Abnormal) Range: 4.4-11.0 20-Otw-31563:30 Comprehensive Metabolic Profil Comments: [facility] [address] [place], [address] GAP 9 (Normal) Range: 5-15 CO2 29.0 [...] 7-18 GLU 99 mg/dL (Normal) Range: 70-110 55-Ktn-42872:30 Lipid Profile Comments: [facility] [address] [place], [address] VLDL 15 mg/dL (Normal) Range: 5-40 LDL [...] 200-240 mg/dL Borderline >240 mg/dL High Risk 14-Evt-64555:30 Vitamin D,25 Hydroxy Comments: [facility] [address] [place], [address] Vitamin D 25-OH 40.8 ng/mL (Normal) Comments: Vitamin D 25(OH) Status Range Deficiency <20 ng/mL (50nmol/L) Insuffciency 20 - 30 ng/mL (50 - 75 nmol/L) Sufficiency 30 - 100 ng/mL (75 - 250 nmol/L) Toxicity >100 ng/mL (>250 nmol/L) 7-Mif-450522:00 Culture, Urine Comments: [facility] [address] [place], [address] CUUR See Note (Normal) Comments: Urine CultureORGANISM [...] $ <=20 S(NF) indicates non-formulary drug at [facility]. Approval by Infectious Disease Specialist required before non-formulary drugs may be ordered and/or dispensed. 7-Aev-745347:59 CALCIFEDIOL (48148) Comments: today; PATIENT NOT FASTINGPERFORMED BY: musiXmatchMclaren Bay Special Care Hospital6370 [facility] [id number] Vitamin D, 25-Hydroxy 59.8 ng/mL (Normal) Range: 30.0-100.0 Comments: Vitamin D deficiency has been defined by the [place] of[place]icine and an Endocrine Society practice guideline as alevel of serum 25-OH vitamin D less than 20 ng/mL (1,2).The Endocrine Society went on to further define vitamin Dinsufficiency as a level between 21 and 29 ng/mL (2).1. IOM ([place] of [employer]). 2010. Dietary reference intakes for calcium and D. [place]: The National Academies Press.2. Jaz MF, Chapo [place], Papito ROBERT, et al. Evaluation, treatment, and prevention of vitamin D deficiency: an Endocrine Society clinical practice guideline. JCEM. 2010; 96(7):1911-30. 3-Yyl-877090:59 URINE YAIR CULTURE-IDENTIFICATN Comments: PATIENT NOT FASTINGPERFORMED BY: [facility] Kceqyq3198 [facility] [id number] Information: SRC:CARMEN (09829) Result 1 ECV (Abnormal) Comments: Escherichia coli, [...] report Culture,Comprehensi (Abnormal) ve 14-May-20179:34 Urinalysis, Office (63030) UA - LEUKOCYTE ESTERASE Moderate (Normal) UA - NITRITE Negative (Normal) URINE UROBILINGN JEANNINE TIMED Normal mg/dL (Normal) UA - PROTEIN Negative mg/dL (Normal) UA - PH 7.5 (Normal) UA - BLOOD Non Hemolyzed Trace (Normal) UA - SPECIFIC GRAVITY 1.010 (Normal) UA - KETONES Negative mg/dL (Normal) UA - BILIRUBIN Negative (Normal) UA - GLUCOSE Negative (Normal) 42-Ama-206539:31 URINE YAIR CULTURE-JEANNINE COL Comments: PATIENT NOT FASTINGPERFORMED BY: [facility] Zsmesz5973 [facility] [id number] Information: SRC:UC COUNT (96752) Antimicrobial MIHEAD (Normal) Comments: S = Susceptible; [...] mL (Abnormal) Urine Final report Culture,Comprehensive (Abnormal) 81-Doa-62866:59 Urinalysis, Office (90437) UA - LEUKOCYTE ESTERASE Large (Normal) UA - NITRITE Negative (Normal) URINE UROBILINGN JEANNINE TIMED Normal mg/dL (Normal) UA - PROTEIN Negative mg/dL (Normal) UA - PH 6 (Abnormal) UA - BLOOD Hemolyzed Large (Normal) UA - SPECIFIC GRAVITY 1.010 (Normal) UA - KETONES Negative mg/dL (Normal) UA - BILIRUBIN Negative (Normal) UA - GLUCOSE Negative (Normal) :12 CBC WITH MANUAL DIFF (93093) Comments: PATIENT NOT FASTINGPERFORMED BY: Post.Bid.ShipPSE&G Children's Specialized HospitalGggked0023 [facility] [id number] Immature Grans (Abs) 0.0 {x10E3/uL} (Normal) Range: [...] CREATININE RATIO Comments: PATIENT WAS FASTINGPERFORMED BY: [facility]6370 [facility] [id number] (21531) AND (74612) Microalb/Creat Ratio 11.2 {mg/g_creat} (Normal) Range: 0.0-30.0 Microalbumin, Urine 13.2 ug/mL (Normal) Creatinine, Urine 117.4 mg/dL (Normal) :28 CALCIFEDIOL (17379) Comments: PATIENT WAS FASTINGPERFORMED BY: Post.Bid.Ship Tzkyfu3003 [facility] [id number] Vitamin D, 25-Hydroxy 68.0 ng/mL (Normal) Range: 30.0-100.0 Comments: Vitamin D deficiency has been defined by the [place] of[facility] and an Endocrine Society practice guideline as alevel of serum 25-OH vitamin D less than 20 ng/mL (1,2).The Endocrine Society went on to further define vitamin Dinsufficiency as a level between 21 and 29 ng/mL (2).1. IOM ([place] of Medicine). 2010. Dietary reference intakes for calcium and D. [place]: The National Academies Press.2. Jaz MF, Chapo HOPE, Papito ROBERT, et al. Evaluation, treatment, and prevention of vitamin D deficiency: an Endocrine Society clinical practice guideline. JCEM. 2010; 96(7):1911-30. :28 TSH (THYROID STIMULATING Comments: PATIENT WAS FASTINGPERFORMED BY: [facility] Ytjixc7682 [facility] [id number] HORMONE) (95178) TSH 3.970 {uIU/mL} (Normal) Range: 0.450-4.500 :28 LIPID PANEL (49669) Comments: PATIENT WAS FASTINGPERFORMED BY: [facility] Cqnvpq0126 [facility] [id number] LDL/HDL Ratio 1.4 {ratio_units} (Normal) Range: 0.0-3.2 [...] PANEL, COMPREHENSIVE Comments: PATIENT WAS FASTINGPERFORMED BY: Post.Bid.Ship Dgqugx3082 [facility] [id number] (71848) ALT (SGPT) 25 [iU]/L (Normal) Range: 0-32 [...] Glucose, Serum 89 mg/dL (Normal) Range: 65-99 :28 CBC, PLATELETS & AUT DIFF Comments: PATIENT WAS FASTINGPERFORMED BY: Post.Bid.Ship Crqysp2862 [facility] [id number] (27227) Immature Grans (Abs) 0.0 {x10E3/uL} (Normal) Range: [...] 3.77-5.28 WBC 3.3 {x10E3/uL} (Abnormal) Range: 3.4-10.8 30-Rkj-497991:27 MICROALBUMIN: CREATININE RATIO Comments: PATIENT WAS FASTINGPERFORMED BY: Post.Bid.Ship Zxmaos2568 [place] [facility] [id number] (70244) AND (30151) Microalb/Creat Ratio 15.5 {mg/g_creat} (Normal) Range: 0.0-30.0 Microalbumin, Urine 8.6 ug/mL (Normal) Creatinine, Urine 55.6 mg/dL (Normal) 97-Snm-398679:27 CALCIFEDIOL (25648) Comments: PATIENT WAS FASTINGPERFORMED BY: [employer] Grqegx1532 [place] [facility] [id number] Vitamin D, 25-Hydroxy 29.7 ng/mL (Abnormal) Range: 30.0-100.0 Comments: Vitamin D deficiency has been defined by the [place] ofMedicine and an Endocrine Society practice guideline as alevel of serum 25-OH vitamin D less than 20 ng/mL (1,2).The Endocrine Society went on to further define vitamin Dinsufficiency as a level between 21 and 29 ng/mL (2).1. IOM ([place] of Medicine). 2010. Dietary reference intakes for calcium and D. [place]: The National Academies Press.2. Jaz MF, Chapo HOPE, Papito ROBERT, et al. Evaluation, treatment, and prevention of vitamin D deficiency: an Endocrine Society clinical practice guideline. JCEM. 2010; 96(7):1911-30. 07-Jbc-156388:27 LIPID PANEL (89356) Comments: PATIENT WAS FASTINGPERFORMED BY: [employer]70 [facility] [id number] LDL/HDL Ratio 1.5 {ratio_units} (Normal) Range: 0.0-3.2 [...] Cholesterol, Total 176 mg/dL (Normal) Range: 100-199 :27 METABOLIC PANEL, COMPREHENSIVE Comments: PATIENT WAS FASTINGPERFORMED BY: [employer]um6370 [facility] [id number] (67959) ALT (SGPT) 22 [iU]/L (Normal) Range: 0-32 [...] Glucose, Serum 89 mg/dL (Normal) Range: 65-99 96-Xuk-937702:27 CBC, PLATELETS & AUT DIFF Comments: PATIENT WAS FASTINGPERFORMED BY: LabCoPSE&G Children's Specialized HospitalIsbtdr9496 [facility] [id number] Information: [id number] (43887) Immature Grans (Abs) 0.0 {x10E3/uL} Range: 0.0-0.1 [...] CYTOSPIN ON FLUID See Note (Normal) Comments: [facility] Ireuinfhxj[address] [place], [address] 00 Comments: Patient: YARELIS BURROWS : 1955 (60/F) Acct Num: [id number] Phys: Jacky PARDO,Robb Unit Num: [id number] Loc: [facility] Specimen: [id number] Received: 04/21/16 - 1323 Spec Type: CYSPIN FL TISSUES TISSUES: COMMENT Differential diagnosis includes infection, calculi or low-grade urothelial neoplasm. CYTOLOGY GROSS Received is 60 ml of clear yello w fluid labeled with the patient's name and and designated per the requisition as urine. Submitted for cytology preparation. 04/21/16 TC:5 CPT: 32737 CYTOLOGY STUDY Slides are reviewed. The specimen consists of benign squamous cells, benign urothelial cells and urothelial cells in clusters and numerous neutrophils. DIAGNOSIS CYTOLOGY Urine for cytology (cytospin): Acute inflammation. Urothelial cells in clusters is noted. See cytology study and comment. PITER:trevor 04/22/16 HEADER OPERATION: Not noted PRE-OP DIAGNOSIS: Hematuria R31.1 TISSUE SUBMITT ED: Urine for cytology Signed Osmany Velarde 04/22/16 <signature on file> 59-Fvi-184487:17 URINE YAIR CULTURE-JEANNINE COL Comments: PATIENT NOT FASTINGPERFORMED BY: musiXmatchKindred HospitalRwobvf4649 [facility] [id number] Information: SRC:[facility] [id number] COUNT (26372) Result 1 CNSNSS (Abnormal) Comments: Coagulase negative [...] S Urine Final report Culture,Comprehens (Abnormal) tracey 01-Edo-313265:10 Urinalysis, Office (30991) UA - LEUKOCYTE ESTERASE Negative (Normal) UA - NITRITE Negative (Normal) URINE UROBILINGN JEANNINE TIMED Normal mg/dL (Normal) UA - PROTEIN Negative mg/dL (Normal) UA - PH 7 (Normal) UA - BLOOD Non Hemolyzed Moderate (Normal) UA - SPECIFIC GRAVITY 1.010 (Normal) UA - KETONES Negative mg/dL (Normal) UA - BILIRUBIN Negative (Normal) UA - GLUCOSE Negative (Normal) 4-Znv-179327:54 URINE YAIR CULTURE-JEANNINE COL Comments: PATIENT NOT FASTINGPERFORMED BY: [facility] Kbbqed5042 [facility] [id number] Information: SRC:[facility] [id number] COUNT (11287) Antimicrobial MIHEAD (Normal) Comments: S = Susceptible; [...] mL (Abnormal) Urine Final report Culture,Comprehensive (Abnormal) 6-Scb-023426:41 Urinalysis, Office (19914) UA - LEUKOCYTE ESTERASE Moderate (Normal) UA - NITRITE Negative (Normal) URINE UROBILINGN JEANNINE TIMED Normal mg/dL (Normal) UA - PROTEIN Negative mg/dL (Normal) UA - PH 7 (Normal) UA - BLOOD Non Hemolyzed Moderate (Normal) UA - SPECIFIC GRAVITY 1.015 (Normal) UA - KETONES Negative mg/dL (Normal) UA - BILIRUBIN Negative (Normal) UA - GLUCOSE Negative (Normal) 12-Vdp-137388:06 Aldosterone, Serum Comments: [facility] (refer to report for specific site)refer to report for address and phone number [facility] 4374 4.8 ng/dL (Normal) Range: 0.0-30.0 30-Xmq-299592:06 Magnesium Comments: [facility] Iuqkztvrzs6598 [facility] [place], [address] MG 2.1 mg/dL (Normal) Range: 1.8-2.4 63-Piy-043231:06 Potassium Comments: [facility] Eewzmfjotk9639 [facility] [place], [address] K 3.4 mmol/L (Abnormal) Range: 3.5-5.1 25-Euw-370178:06 Renin, Plasma Comments: [facility] (refer to report [...] 2.80 Na= >150 0.39 - 1.31Performed at: [facility] [id number] Director: Nomi Villeda MD, Phone: [phone] 72-Xht-650060:06 Thyroid Stim Hormone (TSH) Comments: [facility] Eutpzrxbqr[address] [place], [place], [address] TSH 1.93 {uIU/mL} (Normal) Range: 0.358-3.74 10-Apr-20158:39 Potassium Comments: Test performed at:[facility] Pxdfbbxjuf30[address] [place] [address] K 3.6 mmol/L (Normal) Range: 3.5-5.1 52-Cws-060628:43 Aldosterone, Urine Comments: PATIENT NOT FASTINGPERFORMED BY: [employer] [id number] BY: 360Guanxi [address] [id number] Aldosterone,U, Timed 10.43 {ug/24_hr} (Normal) Range: 0.00-19.00 Comments: Adult Ranges Low Sodium Intake 20.00 - 80.00 Normal Sodium Intake 0.00 - 19.00 High Sodium Intake 0.00 - 12.00 Aldosterone U,Random 2.98 ug/L (Normal) 33-Zfi-957784:43 Cortisol, Urinary Free Comments: PATIENT NOT FASTINGPERFORMED BY: [employer] [facility] Yevnvq[address] [place] [address] [id number] BY: Post.Bid.Ship[address] [id number] Cortisol,F,ug/24hr,U 42 {ug/24_hr} (Normal) Range: 0-50 Cortisol,F,ug/L,U 12 ug/L (Normal) 12-Diw-153127:43 Potassium, 24 hr Urine Comments: PATIENT NOT FASTINGPERFORMED BY: [facility] [id number] BY: Post.Bid.Ship[address] [id number] Information: C:SHARON [id number] START 5@6AM FI MARNIE Potassium, Urine 119.4 {mmol/24_hr} Range: 25.0-125.0 (Normal) Potassium, Urine 34.1 mmol/L (Normal) Renin Activity, Plasma <0.15 {ng/mL/hr} Comments: PATIENT NOT FASTINGPERFORMED BY: musiXmatch[address] [id number] Information: [id number] :48 (Normal) Comments: Adult Normal Salt Intake: Upright 1.31 - 3.95 Supine 0.15 - 2. 33 . Salt Excretion (Na mEq/24 hr): Na= 0 - 30 8.82 - 23.86 Na= 30 - 75 4.09 - 7.73 Na= 75 - 150 1.44 - 2.80 Na= >150 0.39 - 1.31 :58 Aldosterone LCMS, Serum Comments: PATIENT NOT FASTINGPERFORMED BY: Post.Bid.Ship Onoiud1161 [facility] [id number] BY: musiXmatch[address] [id number] Aldosterone 6.0 ng/dL (Normal) Range: 0.0-30.0 : Magnesium, Serum 2.1 mg/dL (Normal) Comments: PATIENT NOT FASTINGPERFORMED BY: [employer]70 [facility] [id number] BY: Post.Bid.Ship[address] [id number] Range: 1.6-2.6 : TSH 2.160 {uIU/mL} Comments: PATIENT NOT FASTINGPERFORMED BY: Post.Bid.ShipPSE&G Children's Specialized HospitalGzwlcu1805[address] [place] [address] [id number] BY: [address] [id number] Inf ormation: [id number],[id number] 58 (Normal) Range: 0.450-4.500 9-Gpo-643508:00 Comprehensive Metabolic Profil Comments: Test performed at:[facility] Clhipiqyap[address] [place] [address] GAP 6 (Normal) Range: 5-15 CO2 32.0 [...] 7-18 GLU 92 mg/dL (Normal) Range: 70-110 7-Rgc-687171:00 Lipid Profile Comments: Test performed at:[facility] Iwkvbbkobu4058 [facility] [place] [address] VLDL 14 mg/dL (Normal) Range: 5-40 LDL [...] 200-240 mg/dL Borderline >240 mg/dL High Risk :14 Urinalysis, Office (27305) UA - LEUKOCYTE ESTERASE Trace (Normal) UA - NITRITE Negative (Normal) URINE UROBILINGN JEANNINE TIMED Normal mg/dL (Normal) UA - PROTEIN Negative mg/dL (Normal) UA - PH 7.0 (Normal) UA - BLOOD Non Hemolyzed Trace (Normal) UA - SPECIFIC GRAVITY 1.020 (Normal) UA - KETONES Negative mg/dL (Normal) UA - BILIRUBIN Negative (Normal) UA - GLUCOSE Negative (Normal) :55 URINE YAIR CULTURE-JEANNINE COL Comments: PATIENT NOT FASTINGPERFORMED BY: [employer]70 [facility]inal [facility] [id number] Information: SRC: URETHRA COUNT (16316) Result 1 MUG (Normal) Comments: Mixed urogenital flora1,000 Colonies/mL Urine Culture,Comprehensive Final report (Normal) 93-Zze-225024:48 URINE YAIR CULTURE-JEANNINE COL Comments: PATIENT NOT FASTINGPERFORMED BY: [employer] Mobilerp Uazqat3281 [place] [facility] [id number] Information: SRC:URC [id number] COUNT (61891) Antimicrobial MIHEAD (Normal) Comments: S = Susceptible; [...] mL (Abnormal) Urine Final report Culture,Comprehensive (Abnormal) 16-Vtb-826364:56 Urinalysis, Office (19170) UA - LEUKOCYTE ESTERASE Large (Normal) UA - NITRITE Negative (Normal) URINE UROBILINGN JEANNINE TIMED Normal mg/dL (Normal) UA - PROTEIN 30 mg/dL (Normal) UA - PH 7.0 (Normal) UA - BLOOD ++ (Abnormal) UA - SPECIFIC GRAVITY 1.010 (Normal) UA - KETONES Negative mg/dL (Normal) UA - BILIRUBIN Negative (Normal) UA - GLUCOSE Negative (Normal) 6-Pnw-649577:54 URINE YAIR CULTURE-JEANNINE COL Comments: PATIENT NOT FASTINGPERFORMED BY: [place] 7493570 [facility] [id number] Information: SRC:UR [id number] COUNT (12395) Result 1 ECV (Abnormal) Comments: Escherichia coli, [...] S Urine Final report Culture,Comprehensi (Abnormal) ve 9-Rkw-432227:18 Urinalysis, Office (82083) UA - LEUKOCYTE ESTERASE Large (Normal) UA - NITRITE Negative (Normal) URINE UROBILINGN JEANNINE TIMED Normal mg/dL (Normal) UA - PROTEIN 100 mg/dL (Normal) UA - PH 7 (Normal) UA - BLOOD Hemolyzed Large (Normal) UA - SPECIFIC GRAVITY 1.025 (Normal) UA - KETONES Negative mg/dL (Normal) UA - BILIRUBIN Negative (Normal) UA - GLUCOSE Negative (Normal) 56-Uqg-273182:40 POTASSIUM SERUM (08955) Comments: today; PATIENT NOT FASTINGPERFORMED BY: [place] 7493570 [facility] [id number] Information: [id number] Potassium, Serum 3.9 mmol/L (Normal) Range: 3.5-5.2 9-Ugl-409643:10 Comprehensive Metabolic Profil Comments: Test performed at:[facility] X[address] [place], [place] [address] GAP 4 (Abnormal) Range: 5-15 CO2 31.0 [...] 70-110 :10 Lipid Profile Comments: Test performed at:[facility] Krvxvbfokc[address] [place], [place] [address] VLDL 19 mg/dL (Normal) Range: 5-40 LDL [...] Borderline >240 mg/dL High Risk :15 Magnesium (82057) Comments: today; PATIENT NOT FASTINGPERFORMED BY: musiXmatchMclaren Bay Special Care Hospital6370 [facility] [id number] Magnesium, Serum 2.2 mg/dL (Normal) Range: 1.6-2.6 :15 Potassium Serum (24334) Comments: today; PATIENT NOT FASTINGPERFORMED BY: [facility]6370 [facility] [id number] Information: [id number] Potassium, Serum 3.8 mmol/L (Normal) Range: 3.5-5.2 :48 Urinalysis, Office (41041) UA - LEUKOCYTE ESTERASE Negative (Normal) UA [...] CULTURE-JEANNINE COL Comments: PATIENT NOT FASTINGPERFORMED BY: musiXmatchMichael [place]ille 5106370 [facility] [id number] Information: SRC:UR [id number]; will review at appt. today COUNT (64967) Result 1 MUG (Normal) Comments: Mixed urogenital flora1,000 Colonies/mL Urine Culture,Comprehensive Final report (Normal) :09 Urinalysis, Office (23637) UA - LEUKOCYTE ESTERASE Negative (Normal) UA [...] CHOL 169 mg/dL (Normal) Comments: <200 mg/dL Vyldciisw469-613 mg/dL Borderline>240 mg/dL High Risk 3-Dop-377328:33 Lipid Panel (11203) Comments: PATIENT WAS FASTINGPERFORMED BY: Metaversum6370 [facility] [id number] Information: [id number] LDL/HDL Ratio 1.6 {ratio_units} (Normal) Range: 0.0-3.2 LDL Cholesterol Calc 96 mg/dL (Normal) Range: 0-99 VLDL Cholesterol Damon 12 mg/dL (Normal) Range: 5-40 HDL Cholesterol 59 mg/dL (Normal) Comments: According to ATP-III Guidelines, HDL-C >59 mg/dL is considered anegative risk factor for CHD. Triglycerides 59 mg/dL (Normal) Range: 0-149 Cholesterol, Total 167 mg/dL (Normal) Range: 100-199 6-Jew-043571:33 HEPATIC FUNCTION PANEL Comments: PATIENT WAS FASTINGPERFORMED BY: [employer]70 [facility] [id number] (13043) ALT (SGPT) 36 [iU]/L (Abnormal) Range: 0-32 AST (SGOT) 29 [iU]/L (Normal) Range: 0-40 Alkaline Phosphatase, S 76 [iU]/L (Normal) Range: 39-117 Bilirubin, Direct 0.20 mg/dL (Normal) Range: 0.00-0.40 Bilirubin, Total 0.8 mg/dL (Normal) Range: 0.0-1.2 Albumin, Serum 4.1 g/dL (Normal) Range: 3.5-5.5 Protein, Total, Serum 6.6 g/dL (Normal) Range: 6.0-8.5 :27 METABOLIC PANEL, Comments: health screening labs; PATIENT WAS FASTINGPERFORMED BY: Post.Bid.ShipPSE&G Children's Specialized HospitalLbqitj7666 [facility] [id number] Information: [id number] [facility] (86270) ALT (SGPT) 19 [iU]/L (Normal) Range: 0-32 [...] mg/dL (Normal) Range: 65-99 :27 LIPID PANEL (26650) Comments: PATIENT WAS FASTINGPERFORMED BY: LabCoPSE&G Children's Specialized HospitalGbsdzi2198 [facility] [id number] LDL/HDL Ratio 3.7 {ratio_units} (Abnormal) Range: 0.0-3.2 [...] leftureter causing left hydronephrosis and left hydroureter.Gallstones. Signed:Armne Slade M.D.January 18, 2013 at 10:24:09 AM [id number] Signed GP/GP If you are the referring physician and would like to consult with theradiologist who provided this interpretation, please contact Albania Thomas at [phone]. If this radiologist is unavailable, youwill be directed to another radiologist t o assist. If you are a patient with a question regarding this report, pleasecontactyour referring physician directly. Professional Interpretation Provided By: [employer], Phone ,Fax These documents contain legally protected [...] destructionofthese documents. Dictated on 01/18/13 0938 by Rodolfo Slade MDscribed on 01/18/13 1026 by ITS IMPORTSign by Armen Slade MD on 01/18/13 1027 Sign b y: Armen Slade MD 12-Rhi-73441:08 Metabolic Panel, Comments: today; PATIENT NOT FASTINGPERFORMED BY: LabCoEllen Ville 6496070 [facility] [id number] Information: [id number] Comprehensive (80284) ALT (SGPT) 29 [iU]/L (Normal) Range: 0-32 [...] Glucose, Serum 102 mg/dL (Abnormal) Range: 65-99 30-Kys-90145:19 Urinalysis, Office (81194) UA - BILIRUBIN Negative (Normal) UA - [...] 7-18 GLU 98 mg/dL (Normal) Range: 70-110 :45 LIPID VLDL 22 mg/dL (Normal) Range: 5-40 [...] 200-240 mg/dL Borderline >240 mg/dL High Risk 6-Swr-834100:26 BILAT SCRN DIGITAL & CAD Radiology Report See Note (Normal) Comments: Exam Number: [id number] AMMOGRAPHY - BILATERAL SCREENING INDICATION:Routine annual screening [...] a Res ultCode to this exam. ADDENDUM: [id number] HPBI/MDS Reported By: DAVION BA M.D. 8-Nqh-923366:26 DEXA BONE DENSITY STUDY (HP) Radiology Report See Note (Normal) Comments: Exam Number: [id number] LINICAL:This is a 55-year-old female patient for postmenopausal screening. EXAMINATION:DUAL ENERGY X-RAY ABSORPTIOMETRY / DEXA. TECHNIQUE:Bone Density Measurements (BMD) of lumbar spine and bilateral hips were obtained using a VideoBurst scanner.. COMPARISON:Comparison is made with prior examination [...] Osteoporosis Foundation http://www.nof.org Reported By: ARMEN SLADE :40 CBC MCH 32.1 pg (Abnormal) Range: 27.0-32.0 [...] :40 PTT 29.1 s (Normal) Range: 25.2-36.2 :10 Urinalysis, Office (58618) UA - LEUKOCYTE ESTERASE Trace (Normal) UA - NITRITE Negative (Normal) URINE UROBILINGN JEANNINE TIMED 2 mg/dL (Normal) UA - PROTEIN Negative mg/dL (Normal) UA - PH 6.5 (Normal) UA - BLOOD Negative (Normal) UA - SPECIFIC GRAVITY 1.005 (Normal) UA - KETONES Negative mg/dL (Normal) UA - BILIRUBIN Negative (Normal) UA - GLUCOSE Negative (Normal) 91-Jhj-259128:04 URINE YAIR CULTURE-JEANNINE COL Comments: PATIENT NOT FASTINGPERFORMED BY: [facility] Qyhswl3095 [facility] [id number] Information: SRC: URINE COUNT (05769) Antimicrobial MIHEAD (Normal) Comments: S = Susceptible; [...] mL (Normal) Urine Final report (Normal) Culture,Comprehensive 37-Udj-327714:03 Urinalysis, Office (90081) UA - LEUKOCYTE ESTERASE Small (Normal) UA - NITRITE Negative (Normal) URINE UROBILINGN JEANNINE TIMED Normal mg/dL (Normal) UA - PROTEIN Negative mg/dL (Normal) UA - PH 7.0 (Normal) UA - BLOOD Non Hemolyzed Moderate (Normal) Comments: Large UA - SPECIFIC GRAVITY 1.010 (Normal) UA - KETONES Negative mg/dL (Normal) UA - BILIRUBIN Negative (Normal) UA - GLUCOSE Negative (Normal) 6-Pue-010919:19 Urinalysis, Office (38015) UA - LEUKOCYTE ESTERASE Negative (Normal) UA - NITRITE Negative (Normal) URINE UROBILINGN JEANNINE TIMED 2 mg/dL (Normal) UA - PROTEIN Negative mg/dL (Normal) UA - PH 7.0 (Normal) UA - BLOOD Negative (Normal) UA - SPECIFIC GRAVITY 1.010 (Normal) UA - KETONES Negative mg/dL (Normal) UA - BILIRUBIN Negative (Normal) UA - GLUCOSE Negative (Normal) 96-Ajp-379861:04 Urinalysis, Office (10587) UA - BILIRUBIN Negative (Normal) UA - [...] Plan of Care Name Dates Details Instructions Nonsmoker : Follow up in 3 months Indication: Nonsmoker Nonsmoker : Eprescribed prescriptions (G8553) Indication: Nonsmoker Elevated blood pressure reading : Reviewed Lab Indication: Elevated blood pressure reading Hypertension : Reviewed Diagnostic Tests Indication: Hypertension Chest pain : Reviewed Lab Indication: Chest pain Chest pain : Reviewed Service Establishment Attendant Letter Indication: Chest pain Chest pain : [...] not specified Planned Observations Metabolic Panel, Comprehensive (02856)Indication: Hypercholesteremia On: :58 Request LIPID PANEL (06373)Indication: Hypercholesteremia On: :55 Request D-Dimer (01425)Indication: Chest pain on breathing On: 69-Pvp-744291:20 Request Comments: STAT TIZBQ-RCRDYEULINS-KMCEU (63983)Indication: Elevated liver enzymes On: :16 Request Parathyroid Hormone-related Peptide (PTH-rP) (64041)Indication: Hypercalcemia On: :42 Request CBC, Platelets & Auto Diff (82882)Indication: Headache On: 6-Srj-191556:55 Request Lipid Panel (34719)Indication: Headache On: 2-Bxe-381653:53 Request TSH (15716)Indication: Headache On: :52 Request URINALYSIS, W/ MICRO (38874)Indication: Hematuria On: :52 Request CALCIFEDIOL (02601)Indication: Osteoporosis On: :02 Request Comments: Aug 2017 CBC, Platelets & Auto Diff (29721)Indication: GERD (gastroesophageal reflux disease) On: :01 Request Comments: Aug 2017 Metabolic Panel, Comprehensive (71923)Indication: Hypercholesteremia On: : Request Comments: Aug 2017 Lipid Panel (90806)Indication: Hypercholesteremia On: :01 Request Comments: Aug 2017 LIPID PANEL (35945)Indication: Hypercholesteremia On: :39 Request Comments: in six months (approximately) METABOLIC PANEL, COMPREHENSIVE (85484)Indication: Hypercholesteremia On: :39 Request Aldosterone,24-Hour Urine (50872)Indication: Hypokalemia On: :37 Request Comments: pt to take salt load by salt food POTASSIUM SERUM (83127)Indication: Hypokalemia On: :34 Request POTASSIUM SERUM (43695)Indication: Hypokalemia On: :40 Request MAGNESIUM (79105)Indication: Hypokalemia On: :55 Request POTASSIUM SERUM (05990)Indication: Hypokalemia On: :54 Request Comments: 2 weeks ALDOSTERONE (59004)Indication: Hypokalemia On: :46 Request RENIN (94048)Indication: Hypokalemia On: :46 Request TSH (THYROID STIMULATING HORMONE) (28590)Indication: Hypokalemia On: :45 Request POTASSIUM URINE (21670)Indication: Hypokalemia On: :44 Request Comments: 24 hour urine CORTISOL FREE (14876)Indication: Hypokalemia On: :44 Request Comments: 24 hour urine Aldosterone,24-Hour Urine (26516)Indication: Hypokalemia On: :43 Request POTASSIUM SERUM (87388)Indication: Hypokalemia On: :22 Request METABOLIC PANEL, COMPREHENSIVE (95059)Indication: Hypercholesteremia On: :22 Request Comments: in six months (approximately) LIPID PANEL (15257)Indication: Hypercholesteremia On: :22 Request Comments: in six months (approximately) METABOLIC PANEL, COMPREHENSIVE (83512)Indication: Hypercholesteremia On: :50 Request Comments: in six months (approximately) LIPID PANEL (20955)Indication: Hypercholesteremia On: :50 Request Comments: in six months (approximately) METABOLIC PANEL, COMPREHENSIVE ([id number])Indication: Hypercholesteremia On: :45 Request LIPID PANEL ([id number])Indication: Hypercholesteremia On: :45 Request CBC WITH MANUAL DIFF ([id number])Indication: Hypercholesteremia On: 9-Fpo-405028:45 Request URINE YAIR CULTURE-IDENTIFICATN ([id number])Indication: Hematuria, unspecified On: :36 Request CALCULUS CHEMICAL QUANTI ([id number])Indication: History of kidney stones On: :28 Request METABOLIC PANEL, COMPREHENSIVE ([id number])Indication: Elevated blood-pressure reading without diagnosis of hypertension On: 50-Qjy-784297:15 Request LIPID PANEL ([id number])Indication: Elevated blood-pressure reading without diagnosis of hypertension On: 70-Jhr-894499:15 Request CALCIFIDIOL ([id number]) VIT D 25Indication: Osteoporosis On: 94-Rma-34031:00 Request TSH ([id number])Indication: Stress reaction On: :56 Request URINALYSIS, W/ MICRO ([id number])Indication: Elevated blood-pressure reading without diagnosis of hypertension On: :56 Request LIPID PANEL ([id number])Indication: Elevated blood-pressure reading without diagnosis of hypertension On: :55 Request CBC WITH MANUAL DIFF ([id number])Indication: Elevated blood-pressure reading without diagnosis of hypertension On: 14-Fry-00360:55 Request METABOLIC PANEL, COMPREHENSIVE ([id number])Indication: Osteoporosis On: :55 Request URINE YAIR CULTURE-IDENTIFICATN ([id number])Indication: Hematuria, unspecified On: 96-Brh-131573:04 Request URINALYSIS ([id number])Indication: Hematuria On: :09 Request Lipid Panel ([id number])Indication: Screening for lipid disorders On: 0-Kya-579802:09 Request CALCIFIDIOL ([id number]) VIT D 25Indication: Osteoporosis On: 3-Hbv-941073:08 Request CBC (Auto) ([id number])Indication: Osteoporosis On: 3-Bpq-680467:07 Request Metabolic Panel, Comprehensive ([id number])Indication: Osteoporosis On: 7-Spn-709614:07 Request Planned Encounters Medical; 3 Month FU - On: 19-Oct-2018 8:30 [facility] Mylene Craig CNP, CNP, Mary E Planned Procedures ELECTROCARDIOGRAM, COMPLETE (ECG) On: 13-Sep-2018 Intent ([id number])By: Mylene Craig CNP, CNP, Mary E Echo CompleteBy: Mylene Craig CNP On: 24-Aug-2018 Intent Mylene Craig CNP COMPUTED TOMOGRAPHY ANGIOGRAPHY OF On: 04-Aug-2018 Intent CHEST FOR PULMONARY EMBOLISM ([id number])By: Katarina Bourgeois CHEST XRAY, PA & LATERAL ([id number])By: On: 04-Aug-2018 Intent Katarina Bourgeois Ultrasound - LiverBy: Mylene Craig CNP On: 10-Dec-2017 Intent E Mylene Craig CNP SCREENING DIGITAL TOMOSYNTHESIS OF On: 10-Dec-2017 Intent BREAST ([id number])By: Mylene Craig CNP, CNP, Mary E Flu Vaccine (Quadrivalent) [id number]: On: 27-Aug-2017 Intent Mylene Craig CNP, CNP, Mary E Comments: lot: [id number]: 03/28/18ite/route: L analilia, IMamt: 0.5mlVIS and ABN signed when applicablePEYTON Morales Ear Irrigation ([id number])By: Eleart GLADIS, On: 27-Aug-2017 Intent Mylene León CNP Comments: IrrigationSite- L and RAmount/Color/Quality - medium amount removed from L ear and minimal from RTolerated wellChePEYTON lowery Bone Density StudyBy: Mylene Craig CNP On: 14-May-2017 Intent E Mylene Craig CNP Comments: Repeat Oct 2017 MAMMOGRAM, SCREENING, BOTH BREAST On: 25-Aug-2016 Intent ([id number])By: Manjit Musa MD Flu Vaccine (Quadrivalent) [id number]: On: 25-Aug-2016 Intent Manjit Musa MD Comments: Lot #[id number]/30/17ite-L dltd, IMDose prefilled syringegiven by:ROSSY CardenasNVIS and ABN signed COMP EYE EXAMINATION, ESTAB PATIENT On: 13-Jan-2016 Intent ([id number])By: Mylene Craig CNP, CNP, Mary E CT - Abdomen & Pelvis (Without On: 25-Nov-2015 Intent Contrast)By: Jennifer Spencer DO Comments: tonight - stat Toradol Injection, 30 mg ([id number])By: On: 1-Feb-2016 Intent [facility]IS, Mylene Duenas Wax CurettesBy: Yuki Sharp MD On: 16-Sep-2015 Intent Ear Irrigation ([id number])By: Lila On: 16-Sep-2015 Intent Yuki PARDO LIMITED GALLIUM SCAN FOR LOCALIZATION On: 22-Apr-2015 Intent OF ABSCESS ([id number])By: Lila PARDO, Comments: head and neck Yuki Martin Echo CompleteBy: Yuki Sharp MD On: 25-Mar-2015 Intent MAMMOGRAM, SCREENING, BOTH BREAST On: 25-Mar-2015 Intent ([id number])By: Yuki Sharp MD DEXA SCAN AXIAL SKELETON ([id number])By: On: 25-Mar-2015 Intent Yuki Sharp MD Nuclear Medicine - Bone ScanBy: On: 25-Mar-2015 Intent Yuki Sharp MD EKG ([id number])By: Yuki Sharp MD On: 25-Mar-2015 Intent Comments: see scanned document of test done to see results reviewed today with patient IMMUNIZ ADMNIN, 1 VAC, SNGL/COMBO On: 25-Mar-2015 Intent ([id number])By: Yuki Sharp MD [place] VACC, [place] ([id number])By: Lila On: 25-Mar-2015 Intent Yuki PARDO Toradol Injection, 30 mg ([id number])By: On: 15-Oct-2014 Intent Ana Lauraanaart GRIFFITH Mylene Duenas ana CUSTOMER SERVICE ADMINISTRATOR, Mylene Duenas Comments: lot [id number] 10.10.1630mg right JULIUS Villarreal SPECIMEN HANDLING/TRANSPORT On: 15-Oct-2014 Intent ([id number])By: Kiara GRIFFITH Yesica Ciart GRIFFITH Yesica MAMMOGRAM, SCREENING, BOTH BREAST On: 05-Sep-2014 Intent ([id number])By: Yuki Sharp MD Flu Vaccine (Quadrivalent) [id number]: On: 10-Aug-2014 Intent Adrienne Tirado LPN ADMINISTRATION OF INFLUENZA VIRUS On: 10-Aug-2014 Intent VACCINE ([id number])By: Adrienne Tirado LPN Comments: X23SP6.15prefilled syringeL Dltd, IMAS, LPNABN and VIS signed Rocephin Injection, 2 Gram On: 09-Aug-2014 Intent ([id number])By: Corine Rice DO Comments: 148401h2.1.172 gmbilateral gm IMAS, LPNABN and VIS signed Wax CurettesBy: Corine Rice DO On: 09-Aug-2014 Intent Ear Irrigation ([id number])By: Dwayne ALAN, On: 09-Aug-2014 Intent Corine Comments: b/lmoderate amount of yellow wax removed bilaterallywax curette used Ultrasound - RenalBy: Lila PARDO, On: 26-Mar-2014 Intent Yuki Martin Radiology - KUBBy: Mylene Craig CNP On: 21-Mar-2014 Intent Mylene Craig CNP Comments: today Toradol Injection, 30 mg ([id number])By: On: 21-Mar-2014 Intent Mylene Craig CNP, CNP, Mary E SPECIMEN HANDLING/TRANSPORT On: 21-Mar-2014 Intent ([id number])By: Mylene Craig CNP, CNP, Mary E IMMUNIZ ADMNIN, 1 VAC, SNGL/COMBO On: 27-Jun-2013 Intent ([id number])By: Yuki Sharp MD FLU VAC, SPLIT, >3 YEARS, INTRAMUSC On: 27-Jun-2013 Intent ([id number])By: Ykui Sharp MD MAMMOGRAM, SCREENING, BOTH BREASTS On: 27-Jun-2013 Intent ([id number])By: Yuki Sharp MD DXA, BONE DENSITY, AXIAL SKELETON On: 27-Jun-2013 Intent ([id number])By: Yuki Sharp MD Eprescribed prescriptions ([id number])By: On: 27-Jun-2013 Intent Long MEDICAL CLAIMS SPECIALIST, Ines L MAMMOGRAM, SCREENING, BOTH BREASTS On: 06-Jun-2013 Intent ([id number])By: Yuki Sharp MD DXA, BONE DENSITY, AXIAL SKELETON On: 06-Jun-2013 Intent ([id number])By: Yuki Sharp MD Phenergan Injection, up to 50 mg On: 18-Jan-2013 Intent ([id number])By: Mylene Craig CNP, CNP, Mary E CT - Abdomen & Pelvis Stone On: 18-Jan-2013 Intent ProtocolBy: Mylene Craig CNP Comments: today Mylene GRIFFITH Toradol Injection, 30 mg ([id number])By: On: 18-Jan-2013 Intent Mylene Craig CNP, CNP Yesica Aerosol Treatment ([id number])By: Kiara On: 31-Aug-2012 Intent Mylene GRIFFITH CNP, Mary E Bone Density StudyBy: Lila PARDO, On: 25-Apr-2012 Intent Yuki Martin IMMUNIZ ADMNIN, 1 VAC, SNGL/COMBO On: 27-Jul-2011 Intent ([id number])By: Yuki Sharp MD FLU VAC, SPLIT, >3 YEARS, INTRAMUSC On: 27-Jul-2011 Intent ([id number])By: Yuki Sharp MD TDAP VACCINE >7 IM ([id number])By: Kiara On: 20-Mar-2010 Intent Mylene GRIFFITH CNP Yesica Comments: Lot #[id number]/24/12Site-left deltoidgiven by:[facility] EKG ([id number])By: Corine Rice DO On: 09-May-2009 Intent Comments: [...] Nonsmoker Nonsmoker : Patient Instructions Indication: Nonsmoker Nonsmoker : How to access [...] : DISCONTINUED - CBC & PLATELETS (AUTO) ([id number]) Indication: Bruising Elevated liver enzymes : DISCONTINUED - HEPATIC FUNCTION PANEL (04598) Indication: Elevated liver enzymes Hypercholesteremia : How to access health information online Indication: Hypercholesteremia Hypercholesteremia : How to access health information online - Detail Indication: Hypercholesteremia Hypercholesteremia : Patient Instructions Indication: Hypercholesteremia Osteoporosis : DISCONTINUED - DEXA SCAN AXIAL SKELETON (06478) Indication: Osteoporosis Hypercholesteremia : DISCONTINUED - METABOLIC PANEL, COMPREHENSIVE (45365) Indication: Hypercholesteremia Hematuria : How to access [...] Advance Directives Name Dates Details Immunization Registry [place] - Effective on 07/19/2018. Effective: 19-Jul-2018 Expiration date unspecified Encounters Annotation/Addendum On: 13-Sep-2018 12:12 Encounter Diagnosis: Hypertension End: 13-Sep-2018 12:14 [facility] Office Visit On: 13-Sep-2018 11:13 Encounter Reason: Follow up tests - Diagnostic tests include ECHO. Date: (09/07).Encounter Diagnosis: BMI 30.0-30.9,adult, Nonsmoker, Hypertension, Diarrhea End: 13-Sep-2018 12:01 [facility] Office Visit On: 24-Aug-2018 8:44 Encounter Reason: [...] off of atrovastatin, was taking statin at [facility] Diagnosis: Hypercholesteremia, BMI 29.0-29.9,adult, Nonsmoker, Elevated liver [...] 15:37 Encounter Reason: Hematuria - Symptoms include ekn colored urine. Onset was 2 day(s) ago. [...] Diagnostic tests include other (labs). Note for Discuss proce dure results: Had repeat potassium drawn as potassium [...] Nutrition: balanced diet and supplemental vitamins. The wy dical issues the patient is following up [...] was 2009Encounter Diagnosis: WWV V73.21 (Renamed from [facility]), Osteoporosis (733.00), Hypercholesterolemia (272.0), HEART MURMUR (785.2), [...] Nausea alone (787.02), WWV V73.21 (Renamed from [facility]), Headache, Tension (307.81), LOW BACK PAIN (724.2), [...] (733.00), GERD (530.81), WWV V73.21 (Renamed from [facility]) [facility] Office Visit On: 02-Nov-2011 [...] (530.81), Rosacea (695.3), WWV V73.21 (Renamed from [facility]), Stress Reaction (308.4) [facility] Office [...] End: 10-Dec-2008 12:12 [facility] [address] [facility] ANA Burrows; art guarantor
--- OUTSIDE RECORDS SUMMARY | 2018-11-03 01:09 | XMS RPT_ITS | Continuity of Care Document ---
:1955 Author Organization [facility] Address [address] [place] [address] Phone Care Team Providers Name Role Phone Mylene Craig CNP Unavailable Dr. 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 She checked with Prolia and cost about 600.00 each Takes D3 04406 weekly with alandronate (she stopped alandronate Oct [...] Quantity: 12 {Tablet} Refills: 1 Ordered:15-Apr-2018 Elea FRAME REPAIRER, Mylene Rust FRAME REPAIRER, Mylene Duenas Start : 15-Apr-2018 Active Align 4 MG Oral Capsule 1 (one) Capsule daily for 0 days Quantity: 30 {Capsule} Refills: 0 Ordered:13-Sep-2018 Kiara GRIFFITH, Mylene Rust [facility], Mylene Duenas Start : 13-Sep-2018 Active Atorvastatin Calcium 10 MG Oral Tablet 1 Tablet daily for 90 days Quantity: 90 {Tablet} Refills: 3 Ordered:19-Jul-2018 Kiaar GRIFFITH, Mylene Rust [facility], Mylene Duenas Start : 19-Jul-2018 Active Calcium 500 MG Oral Capsule daily (500 MG) Active Claritin 10 MG Oral Capsule 1 (one) Capsule daily for 0 days Quantity: 30 {Capsule} Refills: 3 Ordered:13-Sep-2018 Kiara GRIFFITH, Mylene Rust [facility], Mylene Duenas Start : 13-Sep-2018 Active Coenzyme [...] Quantity: 14 {Tablet} Refills: 0 Ordered:28-Apr-2017 Elea FRAME REPAIRER, Mylene Farmera FRAME REPAIRER, Yesica Start : 28-Apr-2017 End : 05-May-2017 Inactive CIPRO, 250MG (Oral Tablet) 1 (one) Tablet bid for 3 days Quantity: 6 {Tablet} Refills: 0 Ordered:02-Oct-2009 Elea FRAME REPAIRER, Mylene Farmera FRAME REPAIRER, Yesica Start : 02-Oct-2009 End : 05-Oct-2009 [...] Refills: 0 Ordered:08-Jan-2011 Kiara GRIFFITH, Mylene Rust [facility], Mylene Duenas Start : 08-Jan-2011 End : [...] Quantity: 8 {Tablet} Refills: 0 Ordered:02-Oct-2009 Kiara FRAME REPAIRER, Mylene Rust [facility], Mylene Duenas Start : 02-Oct-2009 End : 03-Oct-2009 Inactive Vitamin D (Cholecalciferol) 1000 UNIT Oral Capsule 5 Capsule daily for 0 days Quantity: 30 {Capsule} Refills: 0 Ordered:15-Apr-2018 Adrienne Tirado LPN Start : 10-Dec-2017 End : 15-Apr-2018 Inactive Vitamin D3 83222 UNIT Oral Capsule 1 (one) Capsule Capsule [...] End : 19-Jul-2018 Discontinued CALCIUM + D, 488-961CG-QSVA (Oral Tablet) 1 qd for 0 days Refills: 0 Ordered:26-Mar-2014 SHANKAR Cleary End : 26-Mar-2014 Discontinued Comments:This order discontinued per [employer]. Calcium 1500 End : 19-Jul-2018 Discontinued CELEXA, 10MG (Oral Tablet) 1 Tablet daily for 0 days Quantity: 90 {Tablet} Refills: 3 Ordered:26-Mar-2014 Yuki Sharp MD Start : 26-Mar-2014 End : 26-Mar-2014 Discontinued CORTISPORIN, 3.5-03333-2 (Otic Solution) 4 Metric Drop tid for 0 days Quantity: 1 {Bottle} Refills: 0 Ordered:18-Dec-2014 Alec Tirado LPNa Start : 24-Oct-2014 End : 18-Dec-2014 Discontinued Cranberry End : 19-Jul-2018 Discontinued EXTRA STRENGTH PAIN RELIEVER, 701-414-11SW (Oral Tablet) 2 qd prn headaches (250-250-65 [...] Status: Inactive as of 27-Aug-2017 Vaccine for khvszblocn-hnmxcfd-cpckwsrgk with poliomyelitis (Z23, V06.3) Status: Inactive as [...] Echocardiogram Complete Result: Comments: See Note; NOTES: [facility] Cardiovascular Services [address] [place] [address] Echo Complete 09/07/18 1511 MR#: [id number] Acct: [id number] Name: SHAVON BURROWS Rep #: [id number] : 1955 63 From: Chidi Pagan MD Attending Dr: Mylene Craig NP Status: REG CLI Ordering Dr: Mylene Craig NP-C Date: 09/07/18 Location: [facility] Sex: F C Admitted: Reason For S [...] Physician: Mylene Craig Performed By: Gissel Coleman [facility] S 09/07/18 1620 Date Chidi Pagan MD CC: Mylene Craig NP Date Dictated: 09/07/18 1511 Date Transcribed: 09/07/18 1620 Mailing Section Clerk: Signed 06-Aug-2018 Chest 1 View (Portable) Result: Comments: See Note; NOTES: [facility] Imaging Services [address] [place] [address] Chest 1 View (Portable) MR#: [id number] Acct: [id number] Name: YARELIS BURROWS Rep #: [id number] : 1955 F 63 From: Maico Lehman MD PCP: Mylene Craig NP Status: REG ER Study: Chest 1 View (Portable) Date of Exam: 08/06/18 Exam# [id number] Ordering Dr: Laurie Garber MD STUDY: X [...] CC: Mylene Craig NP; Laurie Garber MD Mailing Section Clerk: Signed 04-Aug-2018 Chest PA and Lateral Result: Comments: See Note; NOTES: [facility] Imaging Services [address] [place] [address] Chest PA and Lateral MR#: [id number] Acct: [id number] Name: YARELIS BURROWS Rep #: [id number] : 1955 F 63 From: Maico Lehman MD PCP: Mylene Craig NP Status: REG CLI Study: Chest PA and Lateral Date of Exam: 08/04/18 Exam# [id number] Ordering Dr: Katarina Bourgeois CLINICAL RN LIAISON-Iram STUDY: X-RAY CHEST REASON FOR EXAM: Female, [...] , CC: Mylene Craig NP; TOMEKA Bourgeois Mailing Section Clerk: Signed 10-Mar-2018 OT D/C Summary Result: Comments: See Note; NOTES: [facility] Occupational Therapy 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 Zumba Instructor is to continue to progress through use and strengthening protocol through HEP. SHe is to call with questions/concerns. - D/C Informati on If there are questions or concerns regarding this patient's occupational therapy, please fell free to call me at [phone]. Thank you for the referral of this patient. Sincerely, Marlene Calvert rs <Electronically signed by Marlene Sexton > 03/10/18 1402 CC: Mylene Craig CLINICAL RN LIAISON; Chayo Ku DO KMB Signed 02-Feb-2018 Surgery Visit Report Result: Comments: See Note; NOTES: [facility] [address] [place] [address] OFFICE VISIT Date of Service: 02/01/18 MR#: [id number] Acct: [id number] Name: YARELIS RAMON Rep #: [id number] : 1955 Provider: Jenise Julian PA-C Age/Sex: 62/F Location: [facility] Status: Signed Intake Intake Visit Reasons: f/u paulino 01/25/2018 dp Dance Hall Host/Hostess Required: No Is patient in pain?: No [...] Operative Report Result: Comments: See Note; NOTES: [facility] Medical Records Department [address] [place] [address] Operative Report 01/25/18 1134 MR#: [id number] Acct: [id number] Name: ANDREW BURROWS Rep #: [id number] : 1955 62 From: Chidi Mo MD PCP: Mylene Craig NP Status: [facility] Y Location: [facility] Problem List (1) Calculus of gallbladder with chronic cholecystitis without ob struction Status: Acute Report of Operation Date of Procedure: 01/25/18 Pre-Operative Diagnosis: k 80.10 calculus of the gallbladder with chronic cholecystitis without obstruction Post-Operative Diagno sis: Same Surgery/Procedure Performed:: 55607 laparoscopic cholecystectomy Type of Anesthesia:: General Anesthesiologist: David Berry Description of Procedure: Patient was brought into the operating r oom and placed in the supine position. Under excellent general anesthetic the abdomen was sterilely prepped and draped in the usual fashion. Local was injected infraumbilically and dissection was vanessa d down to the fascia the fascia was grasped with a [place] varies needle was placed inside the abdomen [...] Discharge Instruction Result: Comments: See Note; NOTES: [facility] Medical Records Department [address] [place] [address] Instructions for Home/Discharge Instructions 01/25/18 1133 MR#: [id number] Acct: [id number] Name: YARELIS BURROWS Rep #: [id number] : 1955 62 From: Chidi Mo MD [...] With: Chidi Mo MD - Please call [phone] to schedule an appointment. When: 7 days after your surgery. 01/25/18 1133 <Electronically signed by Chidi bishop MD> Date Chidi Mo MD CC: Mylene Craig NP 21-Jan-2018 12 Lead Electrocardiogram Result: Comments: See Note; NOTES: [facility] Cardiovascular Services [address] [place] [address] 12 Lead EKG 01/20/18 0837 MR#: [id number] Acct: [id number] Name: YARELIS BURROWS Rep #: [id number] : 1955 62 From: Anthony Ojeda MD Attending Dr: Chidi Mo MD Status: PRE SDC Ordering Dr: Chidi Mo MD Date: 01/20/18 Location: [facility] Sex: F C Admitted: [...] ECG Confirmed by ANTHONY OJEDA MD ([id number]), development editor CAITLIN NIELSON ([id number]) on 01/21/2018 11:35:11 AM Referred By: Chidi Mo Confirmed By:ANTHONY OJEDA MD 01/21/18 1135 Date Anthony Ojeda MD CC: Mylene Craig CLINICAL RN LIAISON; Chidi Mo MD Signed 31-Dec-2017 SCREENING MAMM (CAD), BILAT Result: Comments: See Note; NOTES: [facility] Imaging Services [address] [place] [address] SCREENING MAMM (CAD), BILAT MR#: [id number] Acct: [id number] Name: YARELIS BURROWS #: [id number] : 1955 F 62 From: Fransisco Aaron MD PCP: Mylene Craig NP Status: REG CLI Study: SCREENING MAMM (CAD), BILAT Date of Exam: 12/31/17 Exam# [id number] Ordering Dr: Mylene Craig MAMMOGR APHY - [...] Service support , CC: Mylene Craig NP Mailing Section Clerk: Signed 30-Dec-2017 Surgery Visit Report Result: Comments: See Note; NOTES: [facility] [address] [place] [address] OFFICE VISIT Date of Service: 12/30/17 MR#: [id number] Acct: [id number] Name: YARELIS LINDSEY Rep #: [id number] : 1955 Provider: Chidi Mo MD Age/Sex: 62/F Location: [facility] Status: Signed Intake Vital Signs12/30/17 Height 5 ft 4 in 12/30/17 Weight: 177 lb Intak e Visit Reasons: cholelithiasis Dance Hall Host/Hostess Required: No Is patient in pain?: No [...] ultrasound was obtained. This was completed at [facility] on 12/16/2017. This showed a normal [...] person, oriented to place, oriented to time [facility] Head: normocephalic, atraum atic Ears: external [...] 16-Dec-2017 Liver Result: Comments: See Note; NOTES: [facility] Imaging Services [address] [place] [address] Liver MR#: [id number] Acct: [id number] Name: YARELIS BURROWS Rep #: [id number] : F 62 From: Armen Slade MD PCP: Mylene Craig NP Status: REG CLI Study: Liver Date of Exam: 12/16/17 Exam# [id number] Ordering Dr: Mylene Craig STUDY: ABDOMINAL ULTRASOUND [...] Armen Slade MD at 14:34 EST Tel [phone], Service support , CC: Mylene Craig NP Mailing Section Clerk: Signed 09-Dec-2017 OT General Evaluation Result: Comments: See Note; NOTES: [facility] Occupational Therapy [facility] [address] [place] [address] Fax REHABILITATION SERVICES INI TIAL EVALUATION MR#: [id number] Acct: [id number] Name: YARELIS BURROWS Rep #: [id number] : 1955 62 From: Marlene Sexton Referring Dr.: Chayo Ku DO Status: REG R Insurance: [employer] Date: SELF PAY INSURANCE Patient's Visit Information [...] DIP: MF 0-68, L 0-61 - Strength Zumba Instructor: R 39, L 52 Lateral Pinch: R 7, L 11 Tripod Pinch: R 6, L 8 Tip-to-Tip Pinch: R 6, L 4 - Edema Proximal Phalanx: MF R 7.5 cm, L 6.8 cm - Sensation Sensation Comments: WFL; deneis numbness and tingling. - Hand/Wrist Evaluation Total Score of Pain AND Functiona l Sections: 18 - Goals Goal:: Yarelis to increase R fleet service manager to that of L fleet service manager 2/3 trials 75% if the time to [...] to be FAXED BACK to us at [phone] for Medicare purposes. Please let me know if there are questions or concerns regarding this plan of care. Physici an Signature: Date: <Electronically signed by Marlene Sexton > 12/09/17 1209 CC: Mylene Craig CLINICAL RN LIAISON; Chayo Ku DO D KMB Signed For Medicare only, by signing this I certify the plan of care. Physicians Signature Date 02-Dec-2017 Orthopedic Visit Report Result: Comments: See Note; NOTES: [facility] Orthopa[facility]ics AND Sports Medicine [address] [place] [address] OFFICE VISIT Date of Service: 12/02/17 MR#: [id number] Acct: [id number] Name: YARELIS BURROWS Rep #: [id number] : 1955 Provider: Chayo Ku DO Age/Sex: 62/F Location: [facility] Status: Signed Intake Intake Visit Reasons: Right [...] Visit Report Result: Comments: See Note; NOTES: [facility] Orthopa[facility]ics AND Sports Medicine [address] [place] [address] OFFICE VISIT Date of Service: 11/11/17 MR#: [id number] Acct: [id number] Name: YARELIS BURROWS Rep #: [id number] : 1955 Provider: Chayo Ku DO Age/Sex: 62/F Location: [facility] Status: Signed Intake Intake Visit Reasons: Trigger [...] was likely lacking full extension from the penitentiary triggering, that now she will need to [...] Operative Report Result: Comments: See Note; NOTES: [facility] Medical Records Department [address] [place] [address] Operative Report 10/20/17 0844 MR#: [id number] Acct: [id number] Name: ANDREW BURROWS Rep #: [id number] : 1955 62 From: Chayo Ku DO PCP: Mylene Craig NP Status: [facility] Y Location: [facility] Report of Operation Date [...] SCDs placed on her bilateral lower extremity. [place] block was initiated and the right arm [...] with concerns This note was generated with [employer] dictation software. It ma y contain incorrect words, spelling, and punctuation that were not noted in checking the note before signing. 10/28/17 1219 <Electronically signed by Chayo Ku DO> Date ___ Chayo Ku DO CC: Mylene Craig CLINICAL RN LIAISON; Chayo Ku DO Signed 21-Oct-2017 Dexa Bone Density Study () Result: Comments: See Note; NOTES: [facility] Imaging Services [address] [place] [address] Dexa Bone Density Study () MR#: [id number] Acct: [id number] Name: YARELIS BURROWS ep #: [id number] : 1955 F 62 From: Armen Slade MD PCP: Mylene Craig NP Status: REG CLI Study: Dexa Bone Density Study () Date of Exam: 10/21/17 Exam# [id number] Ordering Dr: Mylene Craig STUDY: DUAL ENERGY [...] Armen Slade MD at 12:13 EST Tel [phone], Service support , CC: Mylene Craig NP Mailing Section Clerk: Signed 20-Oct-2017 Discharge Instruction Result: Comments: See Note; NOTES: [facility] Medical Records Department [address] [place] [address] Instructions for Home/Discharge Instructions 10/20/17 0843 MR#: [id number] Acct: [id number] Name: YARELIS BURROWS Toni Rep #: [id number] : 1955 62 From: Chayo Ku DO [...] Follow Up With: Chayo Ku DO - [phone] 10/20/17 0844 <Electronically signed by Chayo Ku DO> Date __ Chayo Ku DO CC: Mylene Craig NP 19-Oct-2017 Orthopedic Visit Report Result: Comments: See Note; NOTES: [facility] Orthopaedics AND Sports Medicine [address] [place] [address] OFFICE VISIT Date of Service: 10/15/17 MR#: [id number] Acct: [id number] Name: YARELIS BURROWS Rep #: [id number] : 1955 Provider: Chayo Ku DO Age/Sex: 62/F Location: [facility] Status: Signed Intake Vital Signs10/15/17 Height 5 [...] (CAD), BILAT Result: Comments: See Note; NOTES: [facility] Imaging Services [address] [place] [address] Verdana 4d SCREENING MAMM (CAD), BILAT MR#: [id number] Acct: [id number] Name: ANDREW BURROWS Rep #: [id number] : 1955 F 61 From: Armen Slade MD PCP: Mylene Craig Status: REG CLI Study: SCREENING MAMM (CAD), BILAT Date of Exam: 10/29/16 Exam# [id number] Ordering Dr: Manjit Musa MAMMOGRAPHY - BILATERAL [...] delay biopsy of a clinically suspicious abnormality. [id number] Electronically Signed: Armen Slade MD at 8:12 EST Tel [phone], Service support [phone], CC: Mylene Musa Mailing Section Clerk: Signed 17-Sep-2016 Finger(s) Min 2 Views Result: Comments: See Note; NOTES: [facility] Imaging Services [address] [place] [address] Verdana 4d Finger(s) Min 2 Views MR#: [id number] Acct: [id number] Name: YARELIS BURROWS Rep #: [id number] : 1955 F 61 From: Donal Austin MD PCP: Yuki Sharp MD Status: REG CLI Study: Finger(s) Min 2 Views Date of Exam: 09/17/16 Exam# [id number] Ordering Dr: Chayo Ku DO STUDY: X-RAY [...] MD at 11:37 EST , Service support [phone], CC: Chayo Ku DO; Yuki Sharp MD Mailing Section Clerk: Signed 17-Sep-2016 Hand Min 3 Views Result: Comments: See Note; NOTES: [facility] Imaging Services [address] [place] [address] Verdana 4d Hand Min 3 Views MR#: [id number] Acct: [id number] Name: YARELIS BURROWS Re p #: [id number] : 1955 F 61 From: Donal Austin MD PCP: Yuki Sharp MD Status: REG CLI Study: Hand Min 3 Views Date of Exam: 09/17/16 Exam# [id number] Ordering Dr: Chayo Ku DO STUDY: X- [...] MD at 11:36 EST , Service support [phone], CC: Chayo Ku DO; Yuki Sharp MD Mailing Section Clerk: Signed 26-Nov-2015 Abdomen/Pelvis without Cont Result: Comments: See Note; NOTES: [facility] Imaging Services [address] [place] [address] Verdana 4d Abdomen/Pelvis without Cont MR#: [id number] Acct: [id number] Name: YARELIS BURROWS Rep #: [id number] : 1955 F 60 From: Armen Slade MD PCP: Yuki Sharp MD Status: REG CLI Study: Abdomen/Pelvis without Cont Date of Exam: 11/26/15 Exam# [id number]: Jennifer Spencer DO STUDY: [...] Armen Slade MD at 9:10 EST Tel [phone], Service support [phone], CC: Yuki Sharp MD; Jennifer Spencer DO Mailing Section Clerk: Signed 15-Oct-2015 Bilat Scrn Digital AND CAD Result: Comments: See Note; NOTES: [facility] Imaging Services [address] [place] [address] Giseladajn 4d Bilat Scrn Digital AND CAD MR#: [id number] Acct: [id number] Name: YARELIS BURROWS Rep #: [id number] : 1955 F 60 From: Armen Slade MD PCP: Yuki Sharp MD Status: REG CLI Study: Bilat Scrn Digital AND CAD Date of Exam: 10/15/15 Exam# [id number] Ordering Dr: Yuki Sharp MD MAMMOGRAPHY - [...] biopsy of a clinically s uspicious abnormality. [id number] Electronically Signed: Armen Slade MD at 7:46 EST Tel [phone], Service support [phone], CC: Yuki Sharp MD Mailing Section Clerk: Signed 15-Oct-2015 Dexa Bone Density Study (HP) Result: Comments: See Note; NOTES: [facility] Imaging Services [address] [place] [address] Verdana 4d Dexa Bone Density Study (HP) MR#: [id number] Acct: [id number] Name : YARELIS BURROWS Rep #: [id number] : 1955 F 60 From: Armen Slade MD PCP: Yuki Sharp MD Status: REG CLI Study: Dexa Bone Density Study (HP) Date of Exam: 10/15/15 Exam# [id number]: Yuki Sharp MD STUDY: [...] Armen Slade MD at 15:58 EST Tel [phone], Service support [phone], CC: Yuki Sharp MD Mailing Section Clerk: Signed 20-May-2015 Gallium ScanWB Tumor/SingleDay Result: Comments: See Note; NOTES: [facility] Imaging Services [address] [place] [address] Nuclear Medicine Report MR#: [id number] Acct: [id number] Name: YARELIS BURROWS Rep #: [id number] : 1955 F 59 From: Karlos Landers DO PCP: Yuki Sharp MD Status: REG CLI Study: Gallium ScanWB Tumor/SingleDay Date of Exam: 05/20/15 Exam# [id number] Ordering Dr: Yuki Sharp MD CLINICAL: 59-year-old [...] Karlos Landers DO at 21:27 EDT Tel [phone], Service support [phone], CC: Yuki Sharp MD Mailing Section Clerk: Signed 08-Apr-2015 Echocardiogram Complete Result: Comments: See Note; NOTES: [facility] Cardiovascular Services [address] [place] [address] Echo Complete 04/08/15 1408 MR#: [id number] Acct: [id number] Name: YARELIS BURROWS Rep #: [id number] : 1955 59 From: Anthony Ojeda MD Attending Dr: Yuki Sharp MD Status: REG CLI Ordering Dr: Yuki Sharp MD Date: 04/08/15 Location: [facility] Sex: F C Admitted: Procedure This was [...] Dictated: 04/08/15 1408 Date Transcribed: 04/08/15 1543 Mailing Section Clerk: Signed 03-Apr-2015 Bone Scan Whole Body Result: Comments: See Note; NOTES: [facility] Imaging Services [address] [place] [address] Nuclear Medicine Report MR#: [id number] Acct: [id number] Name: YARELIS BURROWS Rep #: [id number] : 1955 F 59 From: Karlos Landers DO PCP: Yuki Sharp MD Status: REG CLI Study: Bone Scan Whole Body Date of Exam: 04/03/15 Exam# [id number] Ordering Dr: Yuki Sharp MD CLINICAL: 59-year-old [...] Karlos Landers DO at 8:10 EDT Tel [phone], Service support [phone], CC: Yuki Sharp MD Mailing Section Clerk: Signed 26-Sep-2014 Bilat Scrn Digital AND CAD Result: Comments: See Note; NOTES: [facility] Imaging Services [address] [place] [address] Breast Imaging Report MR#: [id number] Acct: [id number] Name: YARELIS BURROWS #: [id number] : 1955 F 59 From: Armen Slade MD PCP: Yuki Sharp MD Status: REG CLI Study: Bilat Scrn Digital AND CAD Date of Exam: 09/26/14 Exam# [id number] Ordering Dr: Luis Sharp MD MAMMOGRAPHY - [...] Armen Slade MD at 7:28 EST Tel [phone], Service support [phone], CC: Yuki Sharp MD Mailing Section Clerk: Signed 05-Apr-2014 Kidney and Bladder Result: Comments: See Note; NOTES: [facility] Imaging Services [address] [place] [address] Ultrasound Report MR#: [id number] Acct: [id number] Name: YARELIS BURROWS Rep #: [id number] : 1955 F 58 From: Justyn Neville PCP: Yuki Sharp MD Status: REG CLI Study: Kidney and Bladder Date of Exam: 04/05/14 Exam# [id number] Ordering Dr: Yuki Sharp MD STUDY: R [...] at 2:00 EDT Tel , Service support [phone], CC: Yuki Sharp MD Mailing Section Clerk: Signed 21-Mar-2014 Abdomen Single View Result: Comments: See Note; NOTES: [facility] Imaging Services [address] [place] [address] Radiology Report MR#: [id number] Acct: [id number] Name: YARELIS BURROWS Rep #: [id number] : 1955 F 58 From: Armen Slade MD PCP: Status: REG CLI Study: Abdomen Single View Date of Exam: 03/21/14 Exam# [id number] Ordering Dr: Mylene Craig STUDY: X-RAY - [...] Armen Slade MD at 12:51 EDT Tel [phone], Service support [phone], RAD/Abdomen Single View IMPRESSION: Stable calcifications overlying both kidneys. Cholelithiasis. Electronically Signed: Armen Slade MD at 12:51 EDT Tel [phone], Service support [phone], CC: Mylene Craig Mailing Section Clerk: Signed 09-Oct-2013 PT Letter Result: Comments: See Note; NOTES: [facility] [address] [place] [address] Fax Yuki Sharp MD [address] [place] [address] Sharp: Yarelis Tyler Singletonman, date of , 1955, was seen for a massotherapy evaluation on November 02, 2012, with a diagnosis of tension headach es. This patient was treated with 6 sessions of massage therapy, which consisted of mypdawik-xk-aauw tissue full body massage. Myofacial release and muscle stripping were incorporated into the mas annamarie as well as the heat pack to loosen muscles. Due to time constraints with insurance, at this time, I would discharge this patient from our care at [facility] facility . Sincerely, Libby Marie LMT T: NTS JOB: [id number] <Electronically signed by Libby Marie > 10/09/13 1704 CC: -Aug-2013 Bilat Scrn Digital & CAD Result: Comments: See Note; NOTES: [facility] Imaging Services [address] [place] [address] Breast Imaging Report MR#: [id number] Acct: [id number] Name: YARELIS BURROWS #: [id number] : 1955 F 58 From: Armen Slade MD PCP: Status: REG CLI Exam# [id number] Ordering Dr: Yuki Sharp MD MAMMOGRAPHY - [...] 30, 2013 at 7 :48:44 AM EST [phone] Electronically Signed GP/GP If you are the referring physician and would like to consult with the radiologist who provided this interpretation, please contact Armen Slade M.D. at [phone]. If this radiologist is unavailable, you will be directed to another radiologist to assist. If you are a patient with a question regarding this report, please contact your referring physician directly. Professional Interpretation Provided By: avolution, Phone , These documents contain legally protected [...] of these documents. CC: Yuki Sharp MD Mailing Section Clerk: Signed 29-Aug-2013 Dexa Bone Density Study (HP) Result: Comments: See Note; NOTES: [facility] Imaging Services [address] [place] [address] Bone Density Report MR#: [id number] Acct: [id number] Name: YARELIS BURROWS Rep #: [id number] : 1955 F 58 From: Armen Slade MD PCP: Status: REG CLI Study: Dexa Bone Density Study (HP) Date of Exam: 08/29/13 Exam# [id number] Ordering Dr: Yuki Sharp MD STUDY : [...] August 30, 2013 at 12:10:19 PM EST [phone] Electronically Signed GP/GP If you are the referring physician and would like to consult with the radiologist who provided this interpretation, please contact Armen Slade M.D. at [phone]. If this radiologist is unavailable, you will be directed to another ra diologist to assist. If you are a patient with a question regarding this report, please contact your referring physician directly. Professional Interpretation Provided By: avolution, Phone , These documents contain legally protected [...] of these documents. CC: Yuki Sharp MD Mailing Section Clerk: Signed Family History Unknown Family Member Name [...] Active Current Work/Study Status Comments: Full-time, [employer] Status: Active Exercise History Comments: Light Status: [...] Height 0 in Head Circumference 0.00 cm 2-Hej-217426:46 Pulse 74 /min Comments: Pattern: Regular Respiration Rate 16 /min Comments: Pattern: Unlabored BP Systolic 122 mm[Hg] Comments: Patient Position: Sitting; Cuff Location: Left Arm; Cuff Size: Large BP Diastolic 84 mm[Hg] Comments: Patient Position: Sitting; Cuff Location: Left Arm; Cuff Size: Large Weight 166 lb Height 0 in Head Circumference 0.00 cm Results Date Description Value Details 57-Hds-513451:15 Basic Metabolic Profile (BMP) Comments: [facility] [address] [place], [place], [address] GAP 5 (Normal) Range: 5-15 CO2 31.0 [...] A.D.A. criteria.Please note revised GLUCOSE reference range wyqwxyyil62/02/2018. 34-Aem-494108:15 CBC W/Diff, Automated Comments: [facility] [address] [place], [place], [address] Absolute Lymph 1.37 {X10_3/ul} (Normal) Range: 0.83-4.51 [...] 4.2-5.4 WBC 7.4 K/mm3 (Normal) Range: 4.4-11.0 52-Oah-686225:15 Troponin-I Comments: [facility] Orubbqsyou[address] [place], [place], [address] TROPONIN-I < 0.015 ng/mL (Normal) Comments: TROPONIN-I EXPECTED VALUES <0.045 Negative 0.045 - 0.590 Consistent with Cardiac Damage > OR = 0.600 Critical Value Not every elevated troponin is indicative of NE. T hesevalues should be used with clinical judgement in examiningthe patient's clinical picture for diagnosis. To establisha diagnosis of NE versus myocardial injury, there must be ademonstrated rise and/ or fall in the troponin values, inaddition to ischemic symptoms, EKG changes, new regionalwall motion abnormality, and/or angiographical evidence. PLEASE NOTE: REFERENCE RANGES EDITED 02/21/1804-Aug-201805-Pig-653367:29 D-Dimer Quantitative (DVT/PE) Comments: [facility] [address] [place], [place], [address] D-DIMER QUANT 0.27 {FEU/ug/m} (Normal) Range: 0.27-0.49 Comments: NORMAL D-Dimer level (<0.50) indicates no DVT or PE. :08 CBC, Platelets & Auto Diff Comments: PATIENT WAS FASTINGPERFORMED BY: LabCoNewton Medical CenterEzznpw1374 [facility] [id number] (98403) Immature Grans (Abs) 0.0 {x10E3/uL} (Normal) Range: [...] {x10E3/uL} (Normal) Range: 3.4-10.8 :08 Lipid Panel (33818) Comments: PATIENT WAS FASTINGPERFORMED BY: Graphene TechnologiesCoNewton Medical CenterIvdfan2434 [facility] [id number] LDL/HDL Ratio 2.9 {ratio} (Normal) Range: 0.0-3.2 [...] Panel, Comprehensive Comments: PATIENT WAS FASTINGPERFORMED BY: LabCoNewton Medical CenterVsdrzm1911 [facility] [id number] (41390) ALT (SGPT) 27 [iU]/L (Normal) Range: 0-32 [...] 8-27 Glucose 91 mg/dL (Normal) Range: 65-99 22-Ozp-89570:0 GALLBLADDER See Note (Normal) Comments: [facility] [address] [place], [address] 0 Comments: Patient: YARELIS BURROWS : 1955 (62/F) Acct Num: [id number] Phys: Chepe PARDO,Chidi Unit Num: [id number] Loc: [facility] Specimen: [id number] Received: 01/25/181515 Spec Ty pe: GALLBLADDE TISSUES [...] measures up to 0.2 cm in thickness. Paint Prepper sections from the gallbladder and the cystic duct are submitted in one cassette. / [place] 01/25/18 TC:3 CPT: 11098 HEADER OPERATION: Laparoscopic cholecystectomy PRE-OP DIAGNOSIS: Calculus of gallbladder with chronic cholecystitis without obstruction TISSUE SUBMITTED: Adriel avalos MICROSCOPIC DESCRIPTION Slides are reviewed. MICROSCOPIC DIAGNOSIS Gallbladder: Chronic cholecystitis and cholelithiasis. [place] 01/26/18 Signed Osmany Velarde 01/26/18 <signature on file> 54-Wtf-56536:18 CBC-Complete Blood Cnt No Diff Comments: [facility] [address] [place], [place], [address] MPV 11.2 fL (Normal) Range: 6.2-12.0 PLT [...] 4.2-5.4 WBC 3.3 K/mm3 (Abnormal) Range: 4.4-11.0 40-Ugt-01551:11 HEPATIC FUNCTION PANEL Comments: PATIENT NOT FASTINGPERFORMED BY: motionBEAT incFormerly [facility] [id number] (13143) ALT (SGPT) 20 [iU]/L (Normal) Range: 0-32 AST (SGOT) 17 [iU]/L (Normal) Range: 0-40 Alkaline Phosphatase 78 [iU]/L (Normal) Range: 39-117 Bilirubin, Direct 0.17 mg/dL (Normal) Range: 0.00-0.40 Bilirubin, Total 0.9 mg/dL (Normal) Range: 0.0-1.2 Albumin 4.4 g/dL (Normal) Range: 3.6-4.8 Protein, Total 6.8 g/dL (Normal) Range: 6.0-8.5 24-Gkc-68754:11 PARATHORMONE (54667) Comments: PATIENT NOT FASTINGPERFORMED BY: [employer] [facility]gueta [facility] CenterPiikuFormerly [facility] [id number] PTH, Intact 45 pg/mL (Normal) Range: 15-65 :11 CALCIUM SERUM (03026) Comments: PATIENT NOT FASTINGPERFORMED BY: [employer] [facility] [id number] Calcium 9.0 mg/dL (Normal) Range: 8.7-10.3 :35 HEPATITIS PANEL (68857) Comments: PATIENT NOT FASTINGPERFORMED BY: [facility]6370 [facility] [id number] Hep C Virus Ab <0.1 {s/co_ratio} (Normal) Range: 0.0-0.9 Comments: Negative: < 0.8 Indeterminate: 0.8 - 0.9 Positive: > 0.9 . The CDC recommends that a positive HCV antibody result be followed up with a HCV Nucleic Acid Amplification test (094883). Hep B Core Ab, IgM Negative (Normal) HBsAg Screen Negative (Normal) Hep A Ab, IgM Negative (Normal) :35 MWMCK-DEBJGBXJDPJ-NSAEZ (33601) Comments: PATIENT NOT FASTINGPERFORMED BY: [facility]6370 [facility] [id number] AFP, Serum, Tumor Marker 8.0 ng/mL (Normal) Range: 0.0-8.3 Comments: Alexandra ECLIA methodology :49 Urinalysis, Office (55865) URINE UROBILINGN JEANNINE TIMED 2 mg/dL (Normal) [...] With Differential/Platelet Comments: PATIENT WAS FASTINGPERFORMED BY: [facility]6370 [facility] [id number] Immature Grans (Abs) 0.0 {x10E3/uL} (Normal) Range: [...] 3.77-5.28 WBC 5.7 {x10E3/uL} (Normal) Range: 3.4-10.8 03-Izn-52553:15 Comp. Metabolic Panel (14) Comments: PATIENT WAS FASTINGPERFORMED BY: LabCoNewton Medical CenterZineas6028 [facility] [id number] ALT (SGPT) 91 [iU]/L (Abnormal) Range: 0-32 [...] With LDL/HDL Comments: PATIENT WAS FASTINGPERFORMED BY: [facility] [id number] Ratio LDL/HDL Ratio 1.6 (Normal) Range: 0.0-3.2 [...] Microscopic Examination Comments: PATIENT WAS FASTINGPERFORMED BY: [employer] [facility] [id number] Bacteria Few (Normal) Mucus Threads Present (Normal) Epithelial Cells (non 0-10 {/hpf} Range: 0 - 10 renal) (Normal) RBC 0-2 {/hpf} (Normal) Range: 0 - 2 WBC 11-30 {/hpf} Range: 0 - 5 (Abnormal) TSH 2.840 {uIU/mL} Comments: PATIENT WAS FASTINGPERFORMED BY: [employer] [facility] [id number] :15 (Normal) Range: 0.450-4.500 16-Bmz-64760:15 Urinalysis, Complete Comments: PATIENT WAS FASTINGPERFORMED BY: Graphene TechnologiesCox Walnut LawnBcepqo4555 [facility] [id number] Microscopic Examination See below: (Normal) Comments: Microscopic was indicated and was performed. Nitrite, Urine Positive (Abnormal) Urobilinogen,Semi-Qn 0.2 mg/dL (Normal) Range: 0.2-1.0 Bilirubin Negative (Normal) Occult Blood Negative (Normal) Ketones Negative (Normal) Glucose Negative (Normal) Protein Negative (Normal) WBC Esterase 2+ (Abnormal) Appearance Clear (Normal) Urine-Color Yellow (Normal) pH 7.5 (Normal) Range: 5.0-7.5 Specific [place] 1.015 (Normal) Range: 1.005-1.030 :06 URINE YAIR CULTURE-IDENTIFICATN Comments: PATIENT NOT FASTINGPERFORMED BY: [employer] Sawfrw3471 [facility] [id number] Information: SRC: (32345) Antimicrobial MIHEAD (Normal) Comments: S = Susceptible; [...] mL (Abnormal) Urine Final report Culture,Comprehensive (Abnormal) 48-Qgy-206018:41 Urinalysis, Office (97759) UA - LEUKOCYTE ESTERASE Small (Normal) UA - NITRITE Negative (Normal) URINE UROBILINGN JEANNINE TIMED 2 mg/dL (Normal) UA - PROTEIN Negative mg/dL (Normal) UA - PH 7 (Normal) UA - BLOOD Negative (Normal) UA - SPECIFIC GRAVITY 1.020 (Normal) UA - KETONES Negative mg/dL (Normal) UA - BILIRUBIN Negative (Normal) UA - GLUCOSE Negative (Normal) :07 MAGNESIUM (09465) Comments: PATIENT NOT FASTINGPERFORMED BY: [facility] Qgrvwl6887 [facility] [id number] Magnesium, Serum 2.1 mg/dL (Normal) Range: 1.6-2.3 :07 POTASSIUM SERUM (88509) Comments: PATIENT NOT FASTINGPERFORMED BY: [facility] Qsibco7938 [facility] [id number]; OV today Potassium, Serum 3.7 mmol/L (Normal) Range: 3.5-5.2 :32 Culture, Urine Comments: [facility] [address] [place], [place], [address] CUUR See Note (Normal) Comments: Urine CultureBelow infection level. ORGANISM 1: Gram negative rodColony Count <1000 :30 CBC W/Diff, Automated Comments: [facility] [address] [place], [place], [address] Absolute Lymph 1.01 {X10_3/ul} (Normal) Range: 0.83-4.51 [...] 4.2-5.4 WBC 4.0 K/mm3 (Abnormal) Range: 4.4-11.0 40-Wez-72130:30 Comprehensive Metabolic Profil Comments: [facility] [address] [place], [address] GAP 9 (Normal) Range: 5-15 CO2 29.0 [...] 7-18 GLU 99 mg/dL (Normal) Range: 70-110 59-Knh-04967:30 Lipid Profile Comments: [facility] [address] [place], [address] VLDL 15 mg/dL (Normal) Range: 5-40 LDL [...] 200-240 mg/dL Borderline >240 mg/dL High Risk 85-Qnz-75540:30 Vitamin D,25 Hydroxy Comments: [facility] [address] [place], [address] Vitamin D 25-OH 40.8 ng/mL (Normal) Comments: Vitamin D 25(OH) Status Range Deficiency <20 ng/mL (50nmol/L) Insuffciency 20 - 30 ng/mL (50 - 75 nmol/L) Sufficiency 30 - 100 ng/mL (75 - 250 nmol/L) Toxicity >100 ng/mL (>250 nmol/L) 9-Vhf-504791:00 Culture, Urine Comments: [facility] [address] [place], [address] CUUR See Note (Normal) Comments: Urine CultureORGANISM [...] $ <=20 S(NF) indicates non-formulary drug at [facility]. Approval by Infectious Disease Specialist required before non-formulary drugs may be ordered and/or dispensed. 7-Uvv-421238:59 CALCIFEDIOL (82565) Comments: today; PATIENT NOT FASTINGPERFORMED BY: Graphene TechnologiesMymichigan Medical Center West Branch6370 [facility] [id number] Vitamin D, 25-Hydroxy 59.8 ng/mL (Normal) Range: 30.0-100.0 Comments: Vitamin D deficiency has been defined by the [place] ofMedicine and an Endocrine Society practice guideline as alevel of serum 25-OH vitamin D less than 20 ng/mL (1,2).The Endocrine Society went on to further define vitamin Dinsufficiency as a level between 21 and 29 ng/mL (2).1. IOM ([place] of Medicine). 2010. Dietary reference intakes for calcium and D. [place]: The National Academies Press.2. Jaz MF, Chapo NC, Papito ROBERT, et al. Evaluation, treatment, and prevention of vitamin D deficiency: an Endocrine Society clinical practice guideline. JCEM. 2010; 96(7):1911-30. 2-Pqc-300189:59 URINE YAIR CULTURE-IDENTIFICATN Comments: PATIENT NOT FASTINGPERFORMED BY: [facility] Cugwve4805 [facility] [id number] Information: SRC:CARMEN (12916) Result 1 ECV (Abnormal) Comments: Escherichia coli, [...] report Culture,Comprehensi (Abnormal) ve 14-May-20179:34 Urinalysis, Office (86558) UA - LEUKOCYTE ESTERASE Moderate (Normal) UA - NITRITE Negative (Normal) URINE UROBILINGN JEANNINE TIMED Normal mg/dL (Normal) UA - PROTEIN Negative mg/dL (Normal) UA - PH 7.5 (Normal) UA - BLOOD Non Hemolyzed Trace (Normal) UA - SPECIFIC GRAVITY 1.010 (Normal) UA - KETONES Negative mg/dL (Normal) UA - BILIRUBIN Negative (Normal) UA - GLUCOSE Negative (Normal) 06-Xlc-589510:31 URINE YAIR CULTURE-JEANNINE COL Comments: PATIENT NOT FASTINGPERFORMED BY: [facility] Jsmypc3553 [facility] [id number] Information: SRC:UC COUNT (58699) Antimicrobial MIHEAD (Normal) Comments: S = Susceptible; [...] mL (Abnormal) Urine Final report Culture,Comprehensive (Abnormal) 16-Sid-30249:59 Urinalysis, Office (21450) UA - LEUKOCYTE ESTERASE Large (Normal) UA - NITRITE Negative (Normal) URINE UROBILINGN JEANNINE TIMED Normal mg/dL (Normal) UA - PROTEIN Negative mg/dL (Normal) UA - PH 6 (Abnormal) UA - BLOOD Hemolyzed Large (Normal) UA - SPECIFIC GRAVITY 1.010 (Normal) UA - KETONES Negative mg/dL (Normal) UA - BILIRUBIN Negative (Normal) UA - GLUCOSE Negative (Normal) :12 CBC WITH MANUAL DIFF (53067) Comments: PATIENT NOT FASTINGPERFORMED BY: Better World BooksNewton Medical CenterZzzjuj7710 [facility] [id number] Immature Grans (Abs) 0.0 {x10E3/uL} (Normal) Range: [...] CREATININE RATIO Comments: PATIENT WAS FASTINGPERFORMED BY: [facility]6370 [facility] [id number] (73050) AND (93242) Microalb/Creat Ratio 11.2 {mg/g_creat} (Normal) Range: 0.0-30.0 Microalbumin, Urine 13.2 ug/mL (Normal) Creatinine, Urine 117.4 mg/dL (Normal) :28 CALCIFEDIOL (96576) Comments: PATIENT WAS FASTINGPERFORMED BY: [employer] Ryufqn7424 [facility] [id number] Vitamin D, 25-Hydroxy 68.0 ng/mL (Normal) Range: 30.0-100.0 Comments: Vitamin D deficiency has been defined by the [place] ofOhio Valley Hospitalcine and an Endocrine Society practice guideline as alevel of serum 25-OH vitamin D less than 20 ng/mL (1,2).The Endocrine Society went on to further define vitamin Dinsufficiency as a level between 21 and 29 ng/mL (2).1. IOM ([place] of Medicine). 2010. Dietary reference intakes for calcium and D. [place]: The National Academies Press.2. Jaz MF, hCapo HOPE, Papito ROBERT, et al. Evaluation, treatment, and prevention of vitamin D deficiency: an Endocrine Society clinical practice guideline. JCEM. 2010; 96(7):1911-30. :28 TSH (THYROID STIMULATING Comments: PATIENT WAS FASTINGPERFORMED BY: [facility] Hjcqwy3703 [facility] [id number] HORMONE) (73486) TSH 3.970 {uIU/mL} (Normal) Range: 0.450-4.500 :28 LIPID PANEL (31600) Comments: PATIENT WAS FASTINGPERFORMED BY: [facility] Bpdfpq6728 [facility] [id number] LDL/HDL Ratio 1.4 {ratio_units} (Normal) Range: 0.0-3.2 [...] PANEL, COMPREHENSIVE Comments: PATIENT WAS FASTINGPERFORMED BY: [employer] Yrhvfg1909 [facility] [id number] (89364) ALT (SGPT) 25 [iU]/L (Normal) Range: 0-32 [...] AUT DIFF Comments: PATIENT WAS FASTINGPERFORMED BY: [employer] Imbwoh8624 [facility] [id number] (18363) Immature Grans (Abs) 0.0 {x10E3/uL} (Normal) Range: [...] 3.77-5.28 WBC 3.3 {x10E3/uL} (Abnormal) Range: 3.4-10.8 97-Kbr-557682:27 MICROALBUMIN: CREATININE RATIO Comments: PATIENT WAS FASTINGPERFORMED BY: [employer] Nhihrq5642 [employer] [facility] [id number] (02441) AND (21230) Microalb/Creat Ratio 15.5 {mg/g_creat} (Normal) Range: 0.0-30.0 Microalbumin, Urine 8.6 ug/mL (Normal) Creatinine, Urine 55.6 mg/dL (Normal) 61-Rqd-322701:27 CALCIFEDIOL (09838) Comments: PATIENT WAS FASTINGPERFORMED BY: [employer] Hpfjew1338 [place] [facility] [id number] Vitamin D, 25-Hydroxy 29.7 ng/mL (Abnormal) Range: 30.0-100.0 Comments: Vitamin D deficiency has been defined by the [place] ofMedicine and an Endocrine Society practice guideline as alevel of serum 25-OH vitamin D less than 20 ng/mL (1,2).The Endocrine Society went on to further define vitamin Dinsufficiency as a level between 21 and 29 ng/mL (2).1. IOM ([place] of Medicine). 2010. Dietary reference intakes for calcium and D. [place]: The National Academies Press.2. Jaz MF, Chapo HOPE, Papito ROBERT, et al. Evaluation, treatment, and prevention of vitamin D deficiency: an Endocrine Society clinical practice guideline. JCEM. 2010; 96(7):1911-30. 46-Mvv-627924:27 LIPID PANEL (65495) Comments: PATIENT WAS FASTINGPERFORMED BY: [employer]70 Rank By SearchCarroll County [facility] Hospital [id number] LDL/HDL Ratio 1.5 {ratio_units} (Normal) Range: 0.0-3.2 [...] PANEL, COMPREHENSIVE Comments: PATIENT WAS FASTINGPERFORMED BY: [employer]6370 [facility] GroupFormerly [facility] [id number] (06468) ALT (SGPT) 22 [iU]/L (Normal) Range: 0-32 [...] Glucose, Serum 89 mg/dL (Normal) Range: 65-99 13-Vnc-901632:27 CBC, PLATELETS & AUT DIFF Comments: PATIENT WAS FASTINGPERFORMED BY: LabCoNewton Medical CenterPxlwsv0484 [facility] [id number] Information: [id number],[id number] (26954) Immature Grans (Abs) 0.0 {x10E3/uL} Range: 0.0-0.1 [...] CYTOSPIN ON FLUID See Note (Normal) Comments: [facility] [address] [place], [address] 00 Comments: Patient: YARELIS BURROWS : 1955 (60/F) Acct Num: [id number] Phys: Jacky PARDO,Robb Unit Num: [id number] Loc: [facility] Specimen: [id number] Received: 04/21/16 - 1323 Spec Type: CYSPIN FL TISSUES TISSUES: COMMENT Differential diagnosis includes infection, calculi or low-grade urothelial neoplasm. CYTOLOGY GROSS Received is 60 ml of clear yello w fluid labeled with the patient's name and and designated per the requisition as urine. Submitted for cytology preparation. 04/21/16 TC:5 CPT: 46933 CYTOLOGY STUDY Slides are reviewed. The specimen [...] Signed Osmany Velarde 04/22/16 <signature on file> 01-Kez-998204:17 URINE YAIR CULTURE-JEANNINE COL Comments: PATIENT NOT FASTINGPERFORMED BY: Graphene TechnologiesCox Walnut LawnStthjh5449 [facility] [id number] Information: SRC:[facility] [id number] COUNT (14880) Result 1 CNSNSS (Abnormal) Comments: Coagulase negative [...] S Urine Final report Culture,Comprehens (Abnormal) tracey 77-Fii-210226:10 Urinalysis, Office (69945) UA - LEUKOCYTE ESTERASE Negative (Normal) UA - NITRITE Negative (Normal) URINE UROBILINGN JEANNINE TIMED Normal mg/dL (Normal) UA - PROTEIN Negative mg/dL (Normal) UA - PH 7 (Normal) UA - BLOOD Non Hemolyzed Moderate (Normal) UA - SPECIFIC GRAVITY 1.010 (Normal) UA - KETONES Negative mg/dL (Normal) UA - BILIRUBIN Negative (Normal) UA - GLUCOSE Negative (Normal) 8-Rat-677821:54 URINE YAIR CULTURE-JEANNINE COL Comments: PATIENT NOT FASTINGPERFORMED BY: [facility] Dpwkfj6813 [facility] [id number] Information: SRC:[facility] Q03894 COUNT (45297) Antimicrobial MIHEAD (Normal) Comments: S = Susceptible; [...] mL (Abnormal) Urine Final report Culture,Comprehensive (Abnormal) 4-Xfu-277128:41 Urinalysis, Office (58409) UA - LEUKOCYTE ESTERASE Moderate (Normal) UA - NITRITE Negative (Normal) URINE UROBILINGN JEANNINE TIMED Normal mg/dL (Normal) UA - PROTEIN Negative mg/dL (Normal) UA - PH 7 (Normal) UA - BLOOD Non Hemolyzed Moderate (Normal) UA - SPECIFIC GRAVITY 1.015 (Normal) UA - KETONES Negative mg/dL (Normal) UA - BILIRUBIN Negative (Normal) UA - GLUCOSE Negative (Normal) 94-Wkc-933764:06 Aldosterone, Serum Comments: [facility] (refer to report for specific site)refer to report for address and phone number [facility] 4374 4.8 ng/dL (Normal) Range: 0.0-30.0 07-Hut-968919:06 Magnesium Comments: [facility] Ttkgplyogq5206 [facility] [place], [address] MG 2.1 mg/dL (Normal) Range: 1.8-2.4 55-Cjk-746966:06 Potassium Comments: [facility] Iodeshdiif8336 [facility] [place], [address] K 3.4 mmol/L (Abnormal) Range: 3.5-5.1 12-Hbz-770154:06 Renin, Plasma Comments: [facility] (refer to report [...] 2.80 Na= >150 0.39 - 1.31Performed at: [facility] LabCo[address] [id number] Director: Nomi Villeda MD, Phone: [phone] 25-Bmx-104879:06 Thyroid Stim Hormone (TSH) Comments: [facility] [address] [place], [place], [address] TSH 1.93 {uIU/mL} (Normal) Range: 0.358-3.74 10-Apr-20158:39 Potassium Comments: Test performed at:[facility] [address]vmegxkist[address] [place] [address] K 3.6 mmol/L (Normal) Range: 3.5-5.1 18-Bsv-824268:43 Aldosterone, Urine Comments: PATIENT NOT FASTINGPERFORMED BY: [employer] [id number] BY: Morgan Everett [address] [id number] Aldosterone,U, Timed 10.43 {ug/24_hr} (Normal) Range: 0.00-19.00 Comments: Adult Ranges Low Sodium Intake 20.00 - 80.00 Normal Sodium Intake 0.00 - 19.00 High Sodium Intake 0.00 - 12.00 Aldosterone U,Random 2.98 ug/L (Normal) 02-Ham-049992:43 Cortisol, Urinary Free Comments: PATIENT NOT FASTINGPERFORMED BY: [employer] [facility] Daabty[address] [place] [address] [id number] BY: [employer] [id number] Cortisol,F,ug/24hr,U 42 {ug/24_hr} (Normal) Range: 0-50 Cortisol,F,ug/L,U 12 ug/L (Normal) 17-Fwr-968379:43 Potassium, 24 hr Urine Comments: PATIENT NOT FASTINGPERFORMED BY: [facility] [id number] BY: [employer] [id number] Information: C:SHARON Q75965 START 5@6AM FI MARNIE Potassium, Urine 119.4 {mmol/24_hr} Range: 25.0-125.0 (Normal) Potassium, Urine 34.1 mmol/L (Normal) Renin Activity, Plasma <0.15 {ng/mL/hr} Comments: PATIENT NOT FASTINGPERFORMED BY: [employer] [id number] Information: 079530,S03291 :48 (Normal) Comments: Adult Normal Salt Intake: Upright 1.31 - 3.95 Supine 0.15 - 2. 33 . Salt Excretion (Na mEq/24 hr): Na= 0 - 30 8.82 - 23.86 Na= 30 - 75 4.09 - 7.73 Na= 75 - 150 1.44 - 2.80 Na= >150 0.39 - 1.31 :58 Aldosterone LCMS, Serum Comments: PATIENT NOT FASTINGPERFORMED BY: [employer] Bycbxb7695 [facility] [id number] BY: [employer] [id number] Aldosterone 6.0 ng/dL (Normal) Range: 0.0-30.0 : Magnesium, Serum 2.1 mg/dL (Normal) Comments: PATIENT NOT FASTINGPERFORMED BY: [employer]70 [facility] [id number] BY: [employer] [id number] Range: 1.6-2.6 : TSH 2.160 {uIU/mL} Comments: PATIENT NOT FASTINGPERFORMED BY: [employer] BooksNewton Medical CenterRysjxg467[address] [place] [address] [id number] BY: [address] [id number] Inf ormation: [id number] 58 (Normal) Range: 0.450-4.500 1-Ylt-772724:00 Comprehensive Metabolic Profil Comments: Test performed at:[facility] [address] [place] [address] GAP 6 (Normal) Range: 5-15 [...] 7-18 GLU 92 mg/dL (Normal) Range: 70-110 9-Cww-620155:00 Lipid Profile Comments: Test performed at:[facility] [address] [facility] [place] [address] VLDL 14 mg/dL (Normal) Range: [...] >240 mg/dL High Risk :14 Urinalysis, Office (44176) UA - LEUKOCYTE ESTERASE Trace (Normal) UA [...] CULTURE-JEANNINE COL Comments: PATIENT NOT FASTINGPERFORMED BY: Fabule70 [facility] [id number] Information: SRC: URETHRA COUNT (15586) Result 1 MUG (Normal) Comments: Mixed urogenital flora1,000 Colonies/mL Urine Culture,Comprehensive Final report (Normal) 07-Hiz-480911:48 URINE YAIR CULTURE-JEANNINE COL Comments: PATIENT NOT FASTINGPERFORMED BY: Living Cell Technologiesrp Dvdhcv3589 Argueta EG TechnologyBlue Ridge Regional Hospital [id number] Information: SRC:URC [id number] COUNT (03045) Antimicrobial MIHEAD (Normal) Comments: S = Susceptible; [...] mL (Abnormal) Urine Final report Culture,Comprehensive (Abnormal) 89-Mko-487547:56 Urinalysis, Office (36624) UA - LEUKOCYTE ESTERASE Large (Normal) UA - NITRITE Negative (Normal) URINE UROBILINGN JEANNINE TIMED Normal mg/dL (Normal) UA - PROTEIN 30 mg/dL (Normal) UA - PH 7.0 (Normal) UA - BLOOD ++ (Abnormal) UA - SPECIFIC GRAVITY 1.010 (Normal) UA - KETONES Negative mg/dL (Normal) UA - BILIRUBIN Negative (Normal) UA - GLUCOSE Negative (Normal) 4-Omx-785840:54 URINE YAIR CULTURE-JEANNINE COL Comments: PATIENT NOT FASTINGPERFORMED BY: [place] [id number] [facility] [id number] Information: SRC:UR F71620 COUNT (33596) Result 1 ECV (Abnormal) Comments: Escherichia coli, [...] S Urine Final report Culture,Comprehensi (Abnormal) ve 6-Pph-717852:18 Urinalysis, Office (70939) UA - LEUKOCYTE ESTERASE Large (Normal) UA - NITRITE Negative (Normal) URINE UROBILINGN JEANNINE TIMED Normal mg/dL (Normal) UA - PROTEIN 100 mg/dL (Normal) UA - PH 7 (Normal) UA - BLOOD Hemolyzed Large (Normal) UA - SPECIFIC GRAVITY 1.025 (Normal) UA - KETONES Negative mg/dL (Normal) UA - BILIRUBIN Negative (Normal) UA - GLUCOSE Negative (Normal) 45-Fng-396843:40 POTASSIUM SERUM (62805) Comments: today; PATIENT NOT FASTINGPERFORMED BY: [place] [id number] [facility] [id number] Information: [id number] Potassium, Serum 3.9 mmol/L (Normal) Range: 3.5-5.2 3-Ili-873545:10 Comprehensive Metabolic Profil Comments: Test performed at:[facility] [address] [place], [place] [address] GAP 4 (Abnormal) Range: 5-15 CO2 31.0 [...] 70-110 :10 Lipid Profile Comments: Test performed at:[facility] [address] [place], [place] [address] VLDL 19 mg/dL (Normal) Range: 5-40 LDL [...] Borderline >240 mg/dL High Risk :15 Magnesium (63685) Comments: today; PATIENT NOT FASTINGPERFORMED BY: Graphene TechnologiesMymichigan Medical [facility] Branch6370 [facility] [id number] Magnesium, Serum 2.2 mg/dL (Normal) Range: 1.6-2.6 :15 Potassium Serum (09745) Comments: today; PATIENT NOT FASTINGPERFORMED BY: [facility]6370 [facility] [id number] Information: [id number] Potassium, Serum 3.8 mmol/L (Normal) Range: 3.5-5.2 :48 Urinalysis, Office (32757) UA - LEUKOCYTE ESTERASE Negative (Normal) UA [...] CULTURE-JEANNINE COL Comments: PATIENT NOT FASTINGPERFORMED BY: Graphene TechnologiesShawn Ville [id number] [facility] [id number] Information: SRC:UR [id number]; will review at appt. today COUNT (40380) Result 1 MUG (Normal) Comments: Mixed urogenital flora1,000 Colonies/mL Urine Culture,Comprehensive Final report (Normal) :09 Urinalysis, Office (16196) UA - LEUKOCYTE ESTERASE Negative (Normal) UA [...] CHOL 169 mg/dL (Normal) Comments: <200 mg/dL Yshbbhyij864-478 mg/dL Borderline>240 mg/dL High Risk 0-Rhw-057456:33 Lipid Panel (63534) Comments: PATIENT WAS FASTINGPERFORMED BY: [employer]6370 [facility] [id number] Information: [id number],[id number] LDL/HDL Ratio 1.6 {ratio_units} (Normal) Range: 0.0-3.2 LDL Cholesterol Calc 96 mg/dL (Normal) Range: 0-99 VLDL Cholesterol Damon 12 mg/dL (Normal) Range: 5-40 HDL Cholesterol 59 mg/dL (Normal) Comments: According to ATP-III Guidelines, HDL-C >59 mg/dL is considered anegative risk factor for CHD. Triglycerides 59 mg/dL (Normal) Range: 0-149 Cholesterol, Total 167 mg/dL (Normal) Range: 100-199 6-Ptt-390650:33 HEPATIC FUNCTION PANEL Comments: PATIENT WAS FASTINGPERFORMED BY: Fabule70 [facility] [id number] (53817) ALT (SGPT) 36 [iU]/L (Abnormal) Range: 0-32 AST (SGOT) 29 [iU]/L (Normal) Range: 0-40 Alkaline Phosphatase, S 76 [iU]/L (Normal) Range: 39-117 Bilirubin, Direct 0.20 mg/dL (Normal) Range: 0.00-0.40 Bilirubin, Total 0.8 mg/dL (Normal) Range: 0.0-1.2 Albumin, Serum 4.1 g/dL (Normal) Range: 3.5-5.5 Protein, Total, Serum 6.6 g/dL (Normal) Range: 6.0-8.5 :27 METABOLIC PANEL, Comments: health screening labs; PATIENT WAS FASTINGPERFORMED BY: Better World BooksNewton Medical CenterBpokti1944 [facility] [id number] Information: [id number] [facility] (01815) ALT (SGPT) 19 [iU]/L (Normal) Range: 0-32 [...] mg/dL (Normal) Range: 65-99 :27 LIPID PANEL (50803) Comments: PATIENT WAS FASTINGPERFORMED BY: LabCoNewton Medical CenterYgwqxv3759 [facility] [id number] LDL/HDL Ratio 3.7 {ratio_units} (Abnormal) Range: 0.0-3.2 [...] Slade M.D.January 18, 2013 at 10:24:09 AM [id number] Signed GP/GP If you are the referring physician and would like to consult with theradiologist who provided this interpretation, please contact Albania Thomas at [phone]. If this radiologist is unavailable, youwill be directed to another radiologist t o assist. If you are a patient with a question regarding this report, pleasecontactyour referring physician directly. Professional Interpretation Provided By: [employer]olution, Phone ,Fax These documents contain legally protected [...] 1027 Sign b y: Armen Slade MD 86-Llb-34631:08 Metabolic Panel, Comments: today; PATIENT NOT FASTINGPERFORMED BY: LabCoBenjamin Ville [id number] [facility] [id number] Information: [id number] Comprehensive (28294) ALT (SGPT) 29 [iU]/L (Normal) Range: 0-32 [...] Glucose, Serum 102 mg/dL (Abnormal) Range: 65-99 95-Znw-22227:19 Urinalysis, Office (75642) UA - BILIRUBIN Negative (Normal) UA - [...] 200-240 mg/dL Borderline >240 mg/dL High Risk 7-Nuw-711178:26 BILAT SCRN DIGITAL & CAD Radiology Report See Note (Normal) Comments: Exam Number: [id number] AMMOGRAPHY - BILATERAL SCREENING INDICATION:Routine annual screening [...] a Res ultCode to this exam. ADDENDUM: [id number] HPBI/MDS Reported By: DAVION BA M.D. 6-Cad-825942:26 DEXA BONE DENSITY STUDY (HP) Radiology Report See Note (Normal) Comments: Exam Number: [id number] LINICAL:This is a 55-year-old female patient for postmenopausal screening. EXAMINATION:DUAL ENERGY X-RAY ABSORPTIOMETRY / DEXA. TECHNIQUE:Bone Density Measurements (BMD) of lumbar spine and bilateral hips were obtained using a [employer] scanner.. COMPARISON:Comparison is made with prior examination [...] s (Normal) Range: 25.2-36.2 :10 Urinalysis, Office (10142) UA - LEUKOCYTE ESTERASE Trace (Normal) UA - NITRITE Negative (Normal) URINE UROBILINGN JEANNINE TIMED 2 mg/dL (Normal) UA - PROTEIN Negative mg/dL (Normal) UA - PH 6.5 (Normal) UA - BLOOD Negative (Normal) UA - SPECIFIC GRAVITY 1.005 (Normal) UA - KETONES Negative mg/dL (Normal) UA - BILIRUBIN Negative (Normal) UA - GLUCOSE Negative (Normal) 52-Zjf-998389:04 URINE YAIR CULTURE-JEANNINE COL Comments: PATIENT NOT FASTINGPERFORMED BY: [facility] Ocsysc1652 [facility] [id number] Information: SRC: URINE COUNT (31441) Antimicrobial MIHEAD (Normal) Comments: S = Susceptible; [...] mL (Normal) Urine Final report (Normal) Culture,Comprehensive 57-Hcj-845317:03 Urinalysis, Office (73748) UA - LEUKOCYTE ESTERASE Small (Normal) UA - NITRITE Negative (Normal) URINE UROBILINGN JEANNINE TIMED Normal mg/dL (Normal) UA - PROTEIN Negative mg/dL (Normal) UA - PH 7.0 (Normal) UA - BLOOD Non Hemolyzed Moderate (Normal) Comments: Large UA - SPECIFIC GRAVITY 1.010 (Normal) UA - KETONES Negative mg/dL (Normal) UA - BILIRUBIN Negative (Normal) UA - GLUCOSE Negative (Normal) 9-Zcs-269131:19 Urinalysis, Office (61803) UA - LEUKOCYTE ESTERASE Negative (Normal) UA - NITRITE Negative (Normal) URINE UROBILINGN JEANNINE TIMED 2 mg/dL (Normal) UA - PROTEIN Negative mg/dL (Normal) UA - PH 7.0 (Normal) UA - BLOOD Negative (Normal) UA - SPECIFIC GRAVITY 1.010 (Normal) UA - KETONES Negative mg/dL (Normal) UA - BILIRUBIN Negative (Normal) UA - GLUCOSE Negative (Normal) 79-Zlm-783952:04 Urinalysis, Office (14796) UA - BILIRUBIN Negative (Normal) UA - [...] Indication: Chest pain Chest pain : Reviewed Sand Tester Letter Indication: Chest pain Chest pain : [...] : Follow up in 2 [facility] with [facility] Indication: Nausea alone Wheezing : Follow up [...] not specified Planned Observations Metabolic Panel, Comprehensive (74596)Indication: Hypercholesteremia On: :58 Request LIPID PANEL (40290)Indication: Hypercholesteremia On: :55 Request D-Dimer (62497)Indication: Chest pain on breathing On: 17-Ane-480574:20 Request Comments: STAT BCCYQ-GEBFPTPLMWF-XVUGV (33578)Indication: Elevated liver enzymes On: :16 Request Parathyroid Hormone-related Peptide (PTH-rP) (38328)Indication: Hypercalcemia On: :42 Request CBC, Platelets & Auto Diff (09604)Indication: Headache On: 4-Ijh-321427:55 Request Lipid Panel (43936)Indication: Headache On: 6-Ubf-929456:53 Request TSH (21893)Indication: Headache On: :52 Request URINALYSIS, W/ MICRO (16520)Indication: Hematuria On: :52 Request CALCIFEDIOL (58207)Indication: Osteoporosis On: :02 Request Comments: Aug 2017 CBC, Platelets & Auto Diff (73397)Indication: GERD (gastroesophageal reflux disease) On: :01 Request Comments: Aug 2017 Metabolic Panel, Comprehensive (32351)Indication: Hypercholesteremia On: : Request Comments: Aug 2017 Lipid Panel (59840)Indication: Hypercholesteremia On: :01 Request Comments: Aug 2017 LIPID PANEL (46431)Indication: Hypercholesteremia On: :39 Request Comments: in six months (approximately) METABOLIC PANEL, COMPREHENSIVE (44164)Indication: Hypercholesteremia On: :39 Request Aldosterone,24-Hour Urine (69078)Indication: Hypokalemia On: :37 Request Comments: pt to take salt load by salt food POTASSIUM SERUM (84720)Indication: Hypokalemia On: :34 Request POTASSIUM SERUM (70188)Indication: Hypokalemia On: :40 Request MAGNESIUM (62028)Indication: Hypokalemia On: :55 Request POTASSIUM SERUM (57029)Indication: Hypokalemia On: :54 Request Comments: 2 weeks ALDOSTERONE (25687)Indication: Hypokalemia On: :46 Request RENIN (28760)Indication: Hypokalemia On: :46 Request TSH (THYROID STIMULATING HORMONE) (89312)Indication: Hypokalemia On: :45 Request POTASSIUM URINE (68023)Indication: Hypokalemia On: :44 Request Comments: 24 hour urine CORTISOL FREE (73823)Indication: Hypokalemia On: :44 Request Comments: 24 hour urine Aldosterone,24-Hour Urine (00385)Indication: Hypokalemia On: :43 Request POTASSIUM SERUM (02836)Indication: Hypokalemia On: :22 Request METABOLIC PANEL, COMPREHENSIVE (68325)Indication: Hypercholesteremia On: :22 Request Comments: in six months (approximately) LIPID PANEL (75629)Indication: Hypercholesteremia On: :22 Request Comments: in six months (approximately) METABOLIC PANEL, COMPREHENSIVE (09465)Indication: Hypercholesteremia On: :50 Request Comments: in six months (approximately) LIPID PANEL (78494)Indication: Hypercholesteremia On: :50 Request Comments: in six months (approximately) METABOLIC PANEL, COMPREHENSIVE (57554)Indication: Hypercholesteremia On: :45 Request LIPID PANEL (01771)Indication: Hypercholesteremia On: :45 Request CBC WITH MANUAL DIFF (10852)Indication: Hypercholesteremia On: 8-Njt-249514:45 Request URINE YAIR CULTURE-IDENTIFICATN (82595)Indication: Hematuria, unspecified On: :36 Request CALCULUS CHEMICAL QUANTI (13445)Indication: History of kidney stones On: :28 Request METABOLIC PANEL, COMPREHENSIVE (88411)Indication: Elevated blood-pressure reading without diagnosis of hypertension On: 42-Umn-158702:15 Request LIPID PANEL (27910)Indication: Elevated blood-pressure reading without diagnosis of hypertension On: 37-Vma-987561:15 Request CALCIFIDIOL (30639) VIT D 25Indication: Osteoporosis On: 65-Qop-08964:00 Request TSH (61482)Indication: Stress reaction On: :56 Request URINALYSIS, W/ MICRO (08306)Indication: Elevated blood-pressure reading without diagnosis of hypertension On: :56 Request LIPID PANEL (97381)Indication: Elevated blood-pressure reading without diagnosis of hypertension On: :55 Request CBC WITH MANUAL DIFF (64950)Indication: Elevated blood-pressure reading without diagnosis of hypertension On: 30-Owt-59596:55 Request METABOLIC PANEL, COMPREHENSIVE (43450)Indication: Osteoporosis On: :55 Request URINE YAIR CULTURE-IDENTIFICATN (94620)Indication: Hematuria, unspecified On: 47-Flc-290181:04 Request URINALYSIS (05162)Indication: Hematuria On: :09 Request Lipid Panel (48512)Indication: Screening for lipid disorders On: 6-Vle-200197:09 Request CALCIFIDIOL (49455) VIT D 25Indication: Osteoporosis On: 7-Awq-112302:08 Request CBC (Auto) (33972)Indication: Osteoporosis On: 4-Jwm-092855:07 Request Metabolic Panel, Comprehensive (49764)Indication: Osteoporosis On: 4-Jxr-184667:07 Request Planned Encounters Medical; 3 Month FU - On: 19-Oct-2018 8:30 Comprehensive Internal Medicine Mylene Craig CNP, CNP, Mary E Planned Procedures ELECTROCARDIOGRAM, COMPLETE (ECG) On: 13-Sep-2018 Intent (49569)By: Mylene Craig CNP, CNP, Mary E Echo CompleteBy: Mylene Craig CNP On: 24-Aug-2018 Intent Mylene Craig CNP COMPUTED TOMOGRAPHY ANGIOGRAPHY OF On: 04-Aug-2018 Intent CHEST FOR PULMONARY EMBOLISM (91784)By: Katarina Bourgeois CHEST XRAY, PA & LATERAL (47352)By: On: 04-Aug-2018 Intent Katarina Bourgeois Ultrasound - LiverBy: Mylene Craig CNP On: 10-Dec-2017 Intent E Mylene Craig CNP SCREENING DIGITAL TOMOSYNTHESIS OF On: 10-Dec-2017 Intent BREAST (62705)By: Mylene Craig CNP, CNP, Mary E Flu Vaccine (Quadrivalent) 30415La: On: 27-Aug-2017 Intent Mylene Craig CNP, CNP, Mary E Comments: lot: [id number]: 03/28/18ite/route: L analilia, IMamt: 0.5mlVIS and ABN signed when applicablePEYTON Morales Ear Irrigation (32272)By: Eleart GLADIS, On: 27-Aug-2017 Intent Mylene León CNP Comments: IrrigationSite- L and RAmount/Color/Quality - medium amount removed from L ear and minimal from RTolerated wellChePEYTON lowery Bone Density StudyBy: Mylene Craig CNP On: 14-May-2017 Intent E Mylene Craig CNP Comments: Repeat Oct 2017 MAMMOGRAM, SCREENING, BOTH BREAST On: 25-Aug-2016 Intent (61052)By: Manjit Musa MD Flu Vaccine (Quadrivalent) 85666Mu: On: 25-Aug-2016 Intent Manjit Musa MD Comments: Lot #[id number]/30/17ite-L dltd, IMDose prefilled syringegiven by:ROSSY CardenasNVIS and ABN signed COMP EYE EXAMINATION, ESTAB PATIENT On: 13-Jan-2016 Intent (64893)By: Mylene Craig CNP, CNP, Mary E CT - Abdomen & Pelvis (Without On: 25-Nov-2015 Intent Contrast)By: Jennifer Spencer DO Comments: tonight - stat Toradol Injection, 30 mg (J1885)By: On: 1-Feb-2016 Intent Mylene Craig CNPwomen & infants hospital [facility] GLADIS, Mylene Duenas Wax CurettesBy: Yuki Sharp MD On: 16-Sep-2015 Intent Ear Irrigation (22252)By: Lila On: 16-Sep-2015 Intent Yuki PARDO LIMITED GALLIUM SCAN FOR LOCALIZATION On: 22-Apr-2015 Intent OF ABSCESS (98382)By: Lila PARDO, Comments: head and neck Yuki Martin Echo CompleteBy: Yuki Sharp MD On: 25-Mar-2015 Intent MAMMOGRAM, SCREENING, BOTH BREAST On: 25-Mar-2015 Intent (36519)By: Yuki Sharp MD DEXA SCAN AXIAL SKELETON (69181)By: On: 25-Mar-2015 Intent Yuki Sharp MD Nuclear Medicine - Bone ScanBy: On: 25-Mar-2015 Intent Yuki Sharp MD EKG (98412)By: Yuki Sharp MD On: 25-Mar-2015 Intent Comments: see scanned document of test done to see results reviewed today with patient IMMUNIZ ADMNIN, 1 VAC, SNGL/COMBO On: 25-Mar-2015 Intent (12513)By: Yuki Sharp MD Z[place] VACC, [place] (09842)By: Lila On: 25-Mar-2015 Intent Yuki PARDO Toradol Injection, 30 mg (J1885)By: On: 15-Oct-2014 Intent Ana Lauraanaart GRIFFITH Mylene Duenas ana FRAME REPAIRER, Mylene Duenas Comments: lot [id number] 10.10.1630mg right JULIUS Villarreal SPECIMEN HANDLING/TRANSPORT On: 15-Oct-2014 Intent (82859)By: Kiara GRIFFITH Yesica Ciart GRIFFITH Yesica MAMMOGRAM, SCREENING, BOTH BREAST On: 05-Sep-2014 Intent (89611)By: Yuki Sharp MD Flu Vaccine (Quadrivalent) 53872Fh: On: 10-Aug-2014 Intent Adrienne Tirado LPN ADMINISTRATION OF INFLUENZA VIRUS On: 10-Aug-2014 Intent VACCINE (G0008)By: Adrienne Tirado LPN Comments: X23SP6.15prefilled syringeL Dltd, IMAS, LPNABN and VIS signed Rocephin Injection, 2 Gram On: 09-Aug-2014 Intent (J0696)By: Corine Rice DO Comments: 776552q6.1.172 gmbilateral gm IMAS, LPNABN and VIS signed Wax CurettesBy: Corine Rice DO On: 09-Aug-2014 Intent Ear Irrigation (90813)By: Dwayne ALAN, On: 09-Aug-2014 Intent Corine Comments: b/lmoderate amount of yellow wax removed bilaterallywax curette used Ultrasound - RenalBy: Lila PARDO, On: 26-Mar-2014 Intent Yuki Martin Radiology - KUBBy: Mylene Craig CNP On: 21-Mar-2014 Intent Mylene Craig CNP Comments: today Toradol Injection, 30 mg (J1885)By: On: 21-Mar-2014 Intent Mylene Craig CNP, CNP, Mary E SPECIMEN HANDLING/TRANSPORT On: 21-Mar-2014 Intent (67433)By: Mylene Craig CNP, CNP, Mary E IMMUNIZ ADMNIN, 1 VAC, SNGL/COMBO On: 27-Jun-2013 Intent (36656)By: Yuki Sharp MD FLU VAC, SPLIT, >3 YEARS, INTRAMUSC On: 27-Jun-2013 Intent (77322)By: Yuki Sharp MD MAMMOGRAM, SCREENING, BOTH BREASTS On: 27-Jun-2013 Intent (70819)By: Yuki Sharp MD DXA, BONE DENSITY, AXIAL SKELETON On: 27-Jun-2013 Intent (05043)By: Yuki Sharp MD Eprescribed prescriptions (G8553)By: On: 27-Jun-2013 Intent Long PROPERTY UTILIZATION OFFICER, Ines L MAMMOGRAM, SCREENING, BOTH BREASTS On: 06-Jun-2013 Intent (02432)By: Yuki Sharp MD DXA, BONE DENSITY, AXIAL SKELETON On: 06-Jun-2013 Intent (50796)By: Yuki Sharp MD Phenergan Injection, up to 50 mg On: 18-Jan-2013 Intent (J2550)By: Mylene Craig CNP, CNP, Mary E CT - Abdomen & Pelvis Stone On: 18-Jan-2013 Intent ProtocolBy: Mylene Craig CNP Comments: today Mylene GRIFFITH Toradol Injection, 30 mg (J1885)By: On: 18-Jan-2013 Intent Mylene Craig CNP, CNP Yesica Aerosol Treatment (68481)By: Kiara On: 31-Aug-2012 Intent Mylene GRIFFITH CNP, Mary E Bone Density StudyBy: Lila PARDO, On: 25-Apr-2012 Intent Yuki Martin IMMUNIZ ADMNIN, 1 VAC, SNGL/COMBO On: 27-Jul-2011 Intent (45909)By: Yuki Sharp MD FLU VAC, SPLIT, >3 YEARS, INTRAMUSC On: 27-Jul-2011 Intent (93769)By: Yuki Sharp MD TDAP VACCINE >7 IM (02648)By: Kiara On: 20-Mar-2010 Intent Mylene GRIFFITH CNP Yesica Comments: Lot #[id number]/24/12Site-left deltoidgiven by:[facility] EKG (81514)By: Corine Rice DO On: 09-May-2009 Intent Comments: [...] : DISCONTINUED - CBC & PLATELETS (AUTO) (53483) Indication: Bruising Elevated liver enzymes : DISCONTINUED - HEPATIC FUNCTION PANEL (58115) Indication: Elevated liver enzymes Hypercholesteremia : How to access health information online Indication: Hypercholesteremia Hypercholesteremia : How to access health information online - Detail Indication: Hypercholesteremia Hypercholesteremia : Patient Instructions Indication: Hypercholesteremia Osteoporosis : DISCONTINUED - DEXA SCAN AXIAL SKELETON (92044) Indication: Osteoporosis Hypercholesteremia : DISCONTINUED - METABOLIC PANEL, COMPREHENSIVE (39383) Indication: Hypercholesteremia Hematuria : How to access [...] Advance Directives Name Dates Details Immunization Registry [place] - Effective on 07/19/2018. Effective: 19-Jul-2018 Expiration [...] off of atrovastatin, was taking statin at [facility] Diagnosis: Hypercholesteremia, BMI 29.0-29.9,adult, Nonsmoker, Elevated liver [...] Nutrition: balanced diet and supplemental vitamins. The nm dical issues the patient is following up [...] was 2009Encounter Diagnosis: WWV V73.21 (Renamed from [facility]), Osteoporosis (733.00), Hypercholesterolemia (272.0), HEART MURMUR [...] Nausea alone (787.02), WWV V73.21 (Renamed from [facility]), Headache, Tension (307.81), LOW BACK PAIN [...] (733.00), GERD (530.81), WWV V73.21 (Renamed from [facility]) Comprehensive Internal Medicine Office Visit On: [...] (530.81), Rosacea (695.3), WWV V73.21 (Renamed from [facility]), Stress Reaction (308.4) Comprehensive Internal Medicine [...] End: 10-Dec-2008 12:12 Comprehensive Internal Medicine Payers [facility] ANA Burrows; art guarantor
--- OUTSIDE RECORDS SUMMARY | 2018-11-03 01:10 | XMS RPT_ITS | Continuity of Care Document ---
:1955 Author Organization [facility] Address [address] [place] [address] Phone Care Team Providers Name Role Phone Kiara GLADISMylene E Unavailable Dr. 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 Tightness around neckhad [...] and cost about 600.00 each Takes D3 80495 weekly with alandronate (she stopped alandronate Oct [...] 90 {Tablet} Refills: 3 Ordered:19-Jul-2018 Kiara GRIFFITH, Ymlene Yocasta GRIFFITH, Yesica Start : 19-Jul-2018 Active [...] monthly for 0 days Refills: 0 Ordered:29-Jun-2011 SHANAKR Cleary End : 29-Jun-2011 Inactive Calcium Inactive [...] 10-Dec-2017 End : 15-Apr-2018 Inactive Vitamin D3 62841 UNIT Oral Capsule 1 (one) Capsule Capsule [...] End : 19-Jul-2018 Discontinued CALCIUM + D, 691-782SJ-VDUU (Oral Tablet) 1 qd for 0 days Refills: 0 Ordered:26-Mar-2014 SHANKAR Cleary End : 26-Mar-2014 Discontinued Comments:This order discontinued per [facility]. Calcium 1500 End : 19-Jul-2018 Discontinued CELEXA, 10MG (Oral Tablet) 1 Tablet daily for 0 days Quantity: 90 {Tablet} Refills: 3 Ordered:26-Mar-2014 Reagan Sharp MD Start : 26-Mar-2014 End : 26-Mar-2014 Discontinued CORTISPORIN, 3.5-80559-0 (Otic Solution) 4 Metric Drop tid for 0 days Quantity: 1 {Bottle} Refills: 0 Ordered:18-Dec-2014 Adrienne Tirado LPN Start : 24-Oct-2014 End : 18-Dec-2014 Discontinued Cranberry End : 19-Jul-2018 Discontinued EXTRA STRENGTH PAIN RELIEVER, 020-375-65EX (Oral Tablet) 2 qd prn headaches (250-250-65 [...] Status: Inactive as of 27-Aug-2017 Vaccine for jvsvlyubdg-kmherao-djedgaifu with poliomyelitis (Z23, V06.3) Status: Inactive as [...] View (Portable) Result: Comments: See Note; NOTES: [facility] Imaging Services [address] [place] [address] Chest 1 View (Portable) MR#: [id number] Acct: [id number] Name: YARELIS BURROWS Rep #: [id number] : 1955 F 63 From: Maico Lehman MD PCP: Mylene Craig NP Status: REG ER Study: Chest 1 View (Portable) Date of Exam: 08/06/18 Exam# [id number] Ordering Dr: Laurie Garber MD STUDY: X [...] CC: Mylene Craig NP; Laurie Garber MD Bilingual Executive Assistant: Signed 04-Aug-2018 Chest PA and Lateral Result: Comments: See Note; NOTES: [facility] Imaging Services [address] [place] [address] Chest PA and Lateral MR#: [id number] Acct: [id number] Name: YARELIS BURROWS Rep #: [id number] : 1955 F 63 From: Maico Lehman MD PCP: Mylene Craig NP Status: REG CLI Study: Chest PA and Lateral Date of Exam: 08/04/18 Exam# [id number] Ordering Dr: Katarina Bourgeois DISK SANDER-C STUDY: X-RAY CHEST REASON FOR EXAM: Female, [...] , Service support , CC: Mylene Craig DISK SANDER; DISK SANDER-Iram Bourgeois Bilingual Executive Assistant: Signed 10-Mar-2018 OT D/C Summary Result: Comments: See Note; NOTES: [facility] Occupational Therapy [facility] [address] [place] [address] Fax REHABILITATION SERVICES DIS CHARGE SUMMARY MR#: [id number] Acct: [id number] Name: YARELIS BURROWS Rep #: [id number] : 1955 62 From: Marlene Sexton Referring [...] but Pt. is able to straighten actively. 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 Application Coordinator is to continue to progress through use and strengthening protocol through HEP. SHe is to call with questions/concerns. - D/C Informati on If there are questions or concerns regarding this patient's occupational therapy, please fell free to call me at [phone]. Thank you for the referral of this patient. Sincerely, Marlene Calvert rs <Electronically signed by Marlene Sexton > 03/10/18 1402 CC: Mylene Craig DISK SANDER; Chayo Ku DO KMB Signed 02-Feb-2018 Surgery Visit Report Result: Comments: See Note; NOTES: [facility] [address] [place] [address] OFFICE VISIT Date of Service: 02/01/18 MR#: [id number] Acct: [id number] Name: YARELIS RAMON Toni Rep #: [id number] : 1955 Provider: Jenise Julian PA-C Age/Sex: 62/F Location: [facility] Status: Signed Intake Intake Visit Reasons: f/u paulino 01/25/2018 dp Residential Caregiver Required: No Is patient in pain?: No [...] Operative Report Result: Comments: See Note; NOTES: [facility] Medical Records Department [address] [place] [address] Operative Report 01/25/18 1134 MR#: [id number] Acct: [id number] Name: ANDREW BURROWS Rep #: [id number] : 1955 62 From: Chidi Mo MD PCP: Mylene Craig NP Status: [facility] Y Location: [facility] Problem List (1) Calculus of gallbladder with chronic cholecystitis without ob struction Status: Acute Report of Operation Date of Procedure: 01/25/18 Pre-Operative Diagnosis: k 80.10 calculus of the gallbladder with chronic cholecystitis without obstruction Post-Operative Diagno sis: Same Surgery/Procedure Performed:: 03642 laparoscopic cholecystectomy Type of Anesthesia:: General Anesthesiologist: [...] Discharge Instruction Result: Comments: See Note; NOTES: [facility] Medical Records Department [address] [place] [address] Instructions for Home/Discharge Instructions 01/25/18 1133 MR#: [id number] Acct: [id number] Name: YARELIS BURROWS Rep #: [id number] : 1955 62 From: Chidi Mo MD PCP: Mylene Craig NP Status: REG [facility] Discharge Diet: Light diet - advance [...] With: Chidi Mo MD - Please call [phone] to schedule an appointment. When: 7 days after your surgery. 01/25/18 2333 <Electronically signed by Chidi bishop MD> Date Chidi Mo MD CC: Mylene Craig NP 21-Jan-2018 12 Lead Electrocardiogram Result: Comments: See Note; NOTES: [facility] Cardiovascular Services [address] [place] [address] 12 Lead EKG 01/20/18 0837 MR#: [id number] Acct: [id number] Name: YARELIS BURROWS Rep #: [id number] : 1955 62 From: Anthony Ojeda MD Attending Dr: Chidi Mo MD Status: PRE SDC Ordering Dr: Chidi Mo MD Date: 01/20/18 Location: [facility] Sex: F C Admitted: Test Reason : PRE OP Blood Pressure : / mmHG Vent. Rate : 064 BPM Atrial Rate : 064 BPM P-R Int : 130 ms QRS Dur : 092 ms QT Int : 396 ms P-R-T Axes : 013 028 024 degrees QTc Int : 408 ms Normal sinus rhythm Normal ECG Confirmed by ASHLEY PARDO, ANTHONY ([id number]), video editor CAITLIN NIELSON ([id number]) on 01/21/2018 11:35:11 AM Referred By: Chidi Mo Confirmed By:ANTHONY OJEDA MD 01/21/18 1135 Date Anthony Ojeda MD CC: Mylene Craig DISK SANDER; Chidi Mo MD Signed 31-Dec-2017 SCREENING MAMM (CAD), BILAT Result: Comments: See Note; NOTES: [facility] Imaging Services [address] [place] [address] SCREENING MAMM (CAD), BILAT MR#: [id number] Acct: [id number] Name: EMERSON BURROWSYulissa Muñoz Re p #: [id number] : 1955 F 62 From: Fransisco Aaron MD PCP: Mylene Craig NP Status: REG CLI Study: SCREENING MAMM (CAD), BILAT Date of Exam: 12/31/17 Exam# [id number] Ordering Dr: Mylene Craig MAMMOGR APHY - [...] Service support , CC: Mylene Craig NP Bilingual Executive Assistant: Signed 30-Dec-2017 Surgery Visit Report Result: Comments: See Note; NOTES: [facility] [address] [place] [address] OFFICE VISIT Date of Service: 12/30/17 MR#: [id number] Acct: [id number] Name: LY MARIKAYARELIS L Rep #: [id number] : 1955 Provider: Chidi Mo MD Age/Sex: 62/F Location: [facility] Status: Signed Intake Vital Signs12/30/17 Height 5 ft 4 in 12/30/17 Weight: 177 lb Intak e Visit Reasons: cholelithiasis Residential Caregiver Required: No Is patient in pain?: No Allergies No Known Allergies Allergy (Verified 12/30/17 13:23) Medications coenzyme Q10 200 mg capsule 200 mg PO ON CE 10/15/17 [History Confirmed 12/30/17] atorvastatin 20 mg tablet 10 mg PO QDAY tab 12/30/17 [History Confirmed 12/30/17] cholecalciferol (vitamin D3) 10,000 unit capsule 10,000 unit PO QDAY 12/30/17 [ History Confirmed 12/30/17] [facility] Medical History Esophageal reflux (Chronic) Hyperlipidemia (Chronic) [...] ultrasound was obtained. This was completed at [facility] on 12/16/2017. This showed a normal distended [...] person, oriented to place, oriented to time [facility] Head: normocephalic, atraum atic Ears: [...] tender, no masses, no hepatosplenomegaly Auscultation: normal sridvei wel sounds Rectal Exam: other Other: Rectal [...] 16-Dec-2017 Liver Result: Comments: See Note; NOTES: [facility] Imaging Services [address] [place] [address] Liver MR#: [id number] Acct: [id number] Name: YARELIS BURROWS Rep #: [id number] : F 62 From: Armen Slade MD PCP: Mylene Craig NP Status: REG CLI Study: Liver Date of Exam: 12/16/17 Exam# [id number] Ordering Dr: Mylene Craig STUDY: ABDOMINAL ULTRASOUND [...] Armen Slade MD at 14:34 EST Tel [phone], Service support , CC: Mylene Craig NP Bilingual Executive Assistant: Signed 09-Dec-2017 OT General Evaluation Result: Comments: See Note; NOTES: [facility] Occupational Therapy [facility] [address] [place] [address] Fax REHABILITATION SERVICES INI TIAL EVALUATION MR#: [id number] Acct: [id number] Name: YARELIS BURROWS Rep #: [id number] : 1955 62 From: Marlene Sexton Referring Dr.: Chayo Ku DO Status: REG RCR [facility] Date: SELF PAY INSURANCE Patient's Visit Information [...] DIP: MF 0-68, L 0-61 - Strength Application Coordinator: R 39, L 52 Lateral Pinch: R 7, L 11 Tripod Pinch: R 6, L 8 Tip-to-Tip Pinch: R 6, L 4 - Edema Proximal Phalanx: MF R 7.5 cm, L 6.8 cm - Sensation Sensation Comments: WFL; deneis numbness and tingling. - Hand/Wrist Evaluation Total Score of Pain AND Functiona l Sections: 18 - Goals Goal:: Yarelis to increase R laboratory animal caretaker to that of L laboratory animal caretaker 2/3 trials 75% if the time to [...] to be FAXED BACK to us at [phone] for Medicare purposes. Please let me know if there are questions or concerns regarding this plan of care. Physici an Signature: Date: <Electronically signed by Marlene Sexton > 12/09/17 1209 CC: Mylene Craig DISK SANDER; Chayo Ku DO D KMB Signed For Medicare only, by signing this I certify the plan of care. Physicians Signature Date 02-Dec-2017 Orthopedic Visit Report Result: Comments: See Note; NOTES: [facility] Orthopaedics AND Sports Medicine [address] [place] [address] OFFICE VISIT Date of Service: 12/02/17 MR#: [id number] Acct: [id number] Name: YARELIS BURROWS Toni Rep #: [id number] : 1955 Provider: Chayo Ku DO Age/Sex: 62/F Location: [facility] Status: Signed Intake Intake Visit Reasons: Right [...] Visit Report Result: Comments: See Note; NOTES: [facility] Medicine [address] [place] [address] OFFICE VISIT Date of Service: 11/11/17 MR#: [id number] Acct: [id number] Name: YARELIS BURROWS Rep #: [id number] : 1955 Provider: Chayo Ku DO Age/Sex: 62/F Location: [facility] Status: Signed Intake Intake Visit Reasons: Trigger [...] mg PO ONCE 10/15/17 [History Confirmed 10/19/17] [facility] Medical History (Reviewe d 11/11/17 @ 08:03 [...] 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 [place] block was initiated and the right [...] with concerns This note was generated with [employer] dictation software. It ma y contain incorrect words, spelling, and punctuation that were not noted in checking the note before signing. 10/28/17 1219 <Electronically signed by Chayo Ku DO> Date ___ Chayo Ku DO CC: Mylene Craig NP; Chayo Ku DO Signed 21-Oct-2017 Dexa Bone Density Study (HP) Result: Comments: See Note; NOTES: [facility] Imaging Services [address] [place] [address] Dexa Bone Density Study (HP) MR#: [id number] Acct: [id number] Name: YARELIS BURROWS ep #: [id number] : 1955 F 62 From: Armen Slade MD PCP: Mylene Craig NP Status: REG CLI Study: Dexa Bone Density Study (HP) Date of Exam: 10/21/17 Exam# [id number] Ordering Dr: Mylene Craig STUDY: DUAL ENERGY [...] Armen Slade MD at 12:13 EST Tel [phone], Service support , CC: Mylene Craig NP Bilingual Executive Assistant: Signed 20-Oct-2017 Discharge Instruction Result: Comments: See Note; NOTES: [facility] Medical Records Department [address] [place] [address] Instructions for Home/Discharge Instructions 10/20/17 0843 MR#: [id number] Acct: [id number] Name: YARELIS BURROWS Rep #: [id number] : 1955 62 From: Chayo Ku DO PCP: Mylene Craig NP Status: REG [facility] Discharge Diet: No Restrictions - keep [...] Follow Up With: Chayo Ku DO - [phone] 10/20/17 0844 <Electronically signed by Chayo Ku DO> Date __ Chayo Ku DO CC: Mylene Craig DISK SANDER 19-Oct-2017 Orthopedic Visit Report Result: Comments: See Note; NOTES: [facility] [address] [place] [address] OFFICE VISIT Date of Service: 10/15/17 MR#: [id number] Acct: [id number] Name: YARELIS BURROWS Rep #: [id number] : 1955 Provider: Chayo Ku DO Age/Sex: 62/F Location: [facility] Status: Signed Intake Vital Signs10/15/17 Height 5 [...] mg PO ONCE 10/15/17 [History Confirmed 10/19/17] [facility] Medical History Esophageal reflux (Chronic) Hyperlipidemia (Chronic [...] (CAD), BILAT Result: Comments: See Note; NOTES: [facility] Imaging Services [address] [place] [address] Verdana 4d SCREENING MAMM (CAD), BILAT MR#: [id number] Acct: [id number] Name: ANDREW BURROWS Rep #: [id number] : 1955 F 61 From: Armen Slade MD PCP: Mylene Craig Status: REG CLI Study: SCREENING MAMM (CAD), BILAT Date of Exam: 10/29/16 Exam# [id number] Ordering Dr: Manjit Musa MAMMOGRAPHY - BILATERAL [...] delay biopsy of a clinically suspicious abnormality. [id number] Electronically Signed: Armen Slade MD at 8:12 EST Tel [phone], Service support [phone], CC: Mylene Musa Bilingual Executive Assistant: Signed 17-Sep-2016 Finger(s) Min 2 Views Result: Comments: See Note; NOTES: [facility] Imaging Services [address] [place] [address] Verreagan 4d Finger(s) Min 2 Views MR#: [id number] Acct: [id number] Name: YARELIS BURROWS Rep #: [id number] : 1955 F 61 From: Donal Austin MD PCP: Reagan Sharp MD Status: REG CLI Study: Finger(s) Min 2 Views Date of Exam: 09/17/16 Exam# [id number] Ordering Dr: Chayo Ku DO STUDY: X-RAY [...] MD at 11:37 EST , Service support [phone], CC: Chayo Ku DO; Reagan Sharp MD Bilingual Executive Assistant: Signed 17-Sep-2016 Hand Min 3 Views Result: Comments: See Note; NOTES: [facility] Imaging Services [address] [place] [address] Verda 4d Hand Min 3 Views MR#: [id number] Acct: [id number] Name: YARELIS BURROSW Amber p #: [id number] : 1955 F 61 From: Donal Austin MD PCP: Reagan Sharp MD Status: REG CLI Study: Hand Min 3 Views Date of Exam: 09/17/16 Exam# [id number] Ordering Dr: Chayo Ku DO STUDY: X- [...] MD at 11:36 EST , Service support [phone], CC: Chayo Ku DO; Reagan Sharp MD Bilingual Executive Assistant: Signed 26-Nov-2015 Abdomen/Pelvis without Cont Result: Comments: See Note; NOTES: [facility] Imaging Services [address] [place] [address] Verdana 4d Abdomen/Pelvis without Cont MR#: [id number] Acct: [id number] Name: YARELIS BURROWS Rep #: [id number] : 1955 F 60 From: Armen Slade MD PCP: Reagan Sharp MD Status: REG CLI Study: Abdomen/Pelvis without Cont Date of Exam: 11/26/15 Exam# [id number]: Jennifer Spencer DO STUDY: [...] Armen Slade MD at 9:10 EST Tel [phone], Service support [phone], CC: Reagan Sharp MD; Jennifer Spencer DO Bilingual Executive Assistant: Signed 15-Oct-2015 Bilat Scrn Digital AND CAD Result: Comments: See Note; NOTES: [facility] Imaging Services [address] [place] [address] Verdana 4d Bilat Scrn Digital AND CAD MR#: [id number] Acct: [id number] Name: YARELIS BURROWS Rep #: [id number] : 1955 F 60 From: Armen Slade MD PCP: Reagan Sharp MD Status: REG CLI Study: Bilat Scrn Digital AND CAD Date of Exam: 10/15/15 Exam# [id number] Ordering Dr: Reagan Sharp MD MAMMOGRAPHY - [...] biopsy of a clinically s uspicious abnormality. [id number] Electronically Signed: Armen Slade MD at 7:46 EST Tel [phone], Service support [phone], CC: Reagan Sharp MD Bilingual Executive Assistant: Signed 15-Oct-2015 Dexa Bone Density Study (HP) Result: Comments: See Note; NOTES: [facility] Imaging Services [address] [place] [address] Verdana 4d Dexa Bone Density Study (HP) MR#: [id number] Acct: [id number] Name : YARELIS BURROWS Rep #: [id number] : 1955 F 60 From: Armen Slade MD PCP: Reagan Sharp MD Status: REG CLI Study: Dexa Bone Density Study (HP) Date of Exam: 10/15/15 Exam# [id number]: Reagan Sharp MD STUDY: [...] Armen Slade MD at 15:58 EST Tel [phone], Service support [phone], CC: Reagan Sharp MD Bilingual Executive Assistant: Signed 20-May-2015 Gallium ScanWB Tumor/SingleDay Result: Comments: See Note; NOTES: [facility] Imaging Services [address] [place] [address] Nuclear Medicine Report MR#: [id number] Acct: [id number] Name: YARELIS BURROWS Rep #: [id number] : 1955 F 59 From: Karlos Landers DO PCP: Reagan Sharp MD Status: REG CLI Study: Gallium ScanWB Tumor/SingleDay Date of Exam: 05/20/15 Exam# [id number] Ordering Dr: Reagan Sharp MD CLINICAL: 59-year-old [...] Karlos Landers DO at 21:27 EDT Tel [phone], Service support [phone], CC: Reagan Sharp MD Bilingual Executive Assistant: Signed 08-Apr-2015 Echocardiogram Complete Result: Comments: See Note; NOTES: [facility] Cardiovascular Services [address] [place] [address] Echo Complete 04/08/15 1408 MR#: [id number] Acct: [id number] Name: YARELIS BURROWS Rep #: [id number] : 1955 59 From: Anthony Ojeda MD [...] Dictated: 04/08/15 1408 Date Transcribed: 04/08/15 1543 Bilingual Executive Assistant: Signed 03-Apr-2015 Bone Scan Whole Body Result: Comments: See Note; NOTES: [facility] Imaging Services [address] [place] [address] Nuclear Medicine Report MR#: [id number] Acct: [id number] Name: YARELIS BURROWS Rep #: [id number] : 1955 F 59 From: Karlos Landers DO PCP: Reagan Sharp MD Status: REG CLI Study: Bone Scan Whole Body Date of Exam: 04/03/15 Exam# [id number] Ordering Dr: Reagan Sharp MD CLINICAL: 59-year-old [...] Karlos Landers DO at 8:10 EDT Tel [phone], Service support [phone], CC: Reagan Sharp MD Bilingual Executive Assistant: Signed 26-Sep-2014 Bilat Scrn Digital AND CAD Result: Comments: See Note; NOTES: [facility] Imaging Services [address] [place] [address] Breast Imaging Report MR#: [id number] Acct: [id number] Name: YARELIS BURROWS p #: [id number] : 1955 F 59 From: Armen Slade MD PCP: Reagan Sharp MD Status: REG CLI Study: Bilat Scrn Digital AND CAD Date of Exam: 09/26/14 Exam# [id number] Ordering Dr: Luis Sharp MD MAMMOGRAPHY - [...] Armen Slade MD at 7:28 EST Tel [phone], Service support [phone], CC: Reagan Sharp MD Bilingual Executive Assistant: Signed 05-Apr-2014 Kidney and Bladder Result: Comments: See Note; NOTES: [facility] Imaging Services [address] [place] [address] Ultrasound Report MR#: [id number] Acct: [id number] Name: YARELIS BURROWS Rep #: [id number] : 1955 F 58 From: Justyn Neville PCP: Reagan Sharp MD Status: REG CLI Study: Kidney and Bladder Date of Exam: 04/05/14 Exam# [id number] Ordering Dr: Reagan Sharp MD STUDY: R [...] at 2:00 EDT Tel , Service support [phone], CC: Reagan Sharp MD Bilingual Executive Assistant: Signed 21-Mar-2014 Abdomen Single View Result: Comments: See Note; NOTES: [facility] Imaging Services [address] [place] [address] Radiology Report MR#: [id number] Acct: [id number] Name: YARELIS BURROWS Rep #: [id number] : 1955 F 58 From: Armen Slade MD PCP: Status: REG CLI Study: Abdomen Single View Date of Exam: 03/21/14 Exam# [id number] Ordering Dr: Mylene Craig STUDY: X-RAY - [...] Armen Slade MD at 12:51 EDT Tel [phone], Service support [phone], RAD/Abdomen Single View IMPRESSION: Stable calcifications overlying both kidneys. Cholelithiasis. Electronically Signed: Armen Slade MD at 12:51 EDT Tel [phone], Service support [phone], CC: Mylene Craig Bilingual Executive Assistant: Signed 09-Oct-2013 PT Letter Result: Comments: See Note; NOTES: [address] [place] [address] Fax Reagan Sharp MD [address] [place] [address] Sharp: Yarelis Burrows, date of , 1955, was seen for a massotherapy evaluation on November 02, 2012, with a diagnosis of tension headach es. This patient was treated with 6 sessions of massage therapy, which consisted of qfkynknd-ii-rjyn tissue full body massage. Myofacial release and muscle stripping were incorporated into the mas annamarie as well as the heat pack to loosen muscles. Due to time constraints with insurance, at this time, I would discharge this patient from our care at [facility] facility . Sincerely, Libby Marie LMT T: NTS JOB: [id number] <Electronically signed by Libby Marie > 10/09/13 1704 CC: -Aug-2013 Bilat Scrn Digital & CAD Result: Comments: See Note; NOTES: [facility] Imaging Services [address] [place] [address] Breast Imaging Report MR#: [id number] Acct: [id number] Name: YARELIS BURROWS p #: [id number] : 1955 F 58 From: Armen Slade MD PCP: Status: REG CLI Exam# [id number] Ordering Dr: Reagan Sharp MD MAMMOGRAPHY - [...] 30, 2013 at 7 :48:44 AM EST [phone] Electronically Signed GP/GP If you are the referring physician and would like to consult with the radiologist who provided this interpretation, please contact Armen Slade M.D. at [phone]. If this radiologist is unavailable, you will be directed to another radiologist to assist. If you are a patient with a question regarding this report, please contact your referring physician directly. Professional Interpretation Provided By: [employer], Phone , These documents contain legally protected [...] of these documents. CC: Reagan Sharp MD Bilingual Executive Assistant: Signed 29-Aug-2013 Dexa Bone Density Study (HP) Result: Comments: See Note; NOTES: [facility] Imaging Services [address] [place] [address] Bone Density Report MR#: [id number] Acct: [id number] Name: YARELIS BURROWS Rep #: [id number] : 1955 F 58 From: Armen Slade MD PCP: Status: REG CLI Study: Dexa Bone Density Study (HP) Date of Exam: 08/29/13 Exam# [id number] Ordering Dr: Reagan Sharp MD STUDY : [...] August 30, 2013 at 12:10:19 PM EST [phone] Electronically Signed GP/GP If you are the referring physician and would like to consult with the radiologist who provided this interpretation, please contact Armen Slade M.D. at [phone]. If this radiologist is unavailable, you will be directed to another ra diologist to assist. If you are a patient with a question regarding this report, please contact your referring physician directly. Professional Interpretation Provided By: [employer], Phone , These documents contain legally protected [...] return or destruction of these documents. CC: Raegan Sharp MD Bilingual Executive Assistant: Signed Family History Unknown Family Member Name [...] Active Current Work/Study Status Comments: Full-time, [employer] Status: Active Exercise History Comments: Light [...] kg/m2 Body Surface Area Calculated 1.85 m2 99-Mkv-434563:03 Pulse 76 /min Comments: Pattern: Regular Respiration [...] 0.00 cm Results Date Description Value Details 28-Hph-226138:15 Basic Metabolic Profile (BMP) Comments: [facility] [address] [place], [address] GAP 5 (Normal) Range: 5-15 CO2 31.0 [...] A.D.A. criteria.Please note revised GLUCOSE reference range ezphigumh77/02/2018. 35-Qyf-969973:15 CBC W/Diff, Automated Comments: [facility] [address] [place], [place], [address] Absolute Lymph 1.37 {X10_3/ul} (Normal) Range: 0.83-4.51 [...] 4.2-5.4 WBC 7.4 K/mm3 (Normal) Range: 4.4-11.0 79-Uit-934309:15 Troponin-I Comments: [facility] [address] [place], [place], [address] TROPONIN-I < 0.015 ng/mL (Normal) Comments: TROPONIN-I EXPECTED VALUES <0.045 Negative 0.045 - 0.590 Consistent with Cardiac Damage > OR = 0.600 Critical Value Not every elevated troponin is indicative of DE. T hesevalues should be used with clinical judgement in examiningthe patient's clinical picture for diagnosis. To establisha diagnosis of DE versus myocardial injury, there must be ademonstrated rise and/ or fall in the troponin values, inaddition to ischemic symptoms, EKG changes, new regionalwall motion abnormality, and/or angiographical evidence. PLEASE NOTE: REFERENCE RANGES EDITED 02/21/1804-Aug-201821-Ozt-258784:29 D-Dimer Quantitative (DVT/PE) Comments: [facility] [address] [place], [place], [address] D-DIMER QUANT 0.27 {FEU/ug/m} (Normal) Range: 0.27-0.49 Comments: NORMAL D-Dimer level (<0.50) indicates no DVT or PE. 15-Apr-20189:08 CBC, Platelets & Auto Diff Comments: PATIENT WAS FASTINGPERFORMED BY: [facility]CoL[facility] Burlington CountyLvbcgd0559 [facility] [id number] (86071) Immature Grans (Abs) 0.0 {x10E3/uL} (Normal) Range: [...] {x10E3/uL} (Normal) Range: 3.4-10.8 :08 Lipid Panel (28711) Comments: PATIENT WAS FASTINGPERFORMED BY: [employer] Ubbfjt1755 [facility] [id number] LDL/HDL Ratio 2.9 {ratio} (Normal) Range: 0.0-3.2 [...] Panel, Comprehensive Comments: PATIENT WAS FASTINGPERFORMED BY: [employer] Iixpjf3637 [facility] [id number] (16515) ALT (SGPT) 27 [iU]/L (Normal) Range: 0-32 [...] 8-27 Glucose 91 mg/dL (Normal) Range: 65-99 10-Qsj-00525:0 GALLBLADDER See Note (Normal) Comments: [facility] [address] [place], [address] 0 Comments: Patient: YARELIS BURROWS : 1955 (62/F) Acct Num: [id number] Phys: Chepe PARDO,Chidi Unit Num: [id number] Loc: [facility] Specimen: [id number] Received: 01/25/181515 Spec Ty pe: GALLBLADDE TISSUES [...] measures up to 0.2 cm in thickness. Bedspring Assembler sections from the gallbladder and the cystic duct are submitted in one cassette. / PITER:trevor 01/25/18 TC:3 CPT: 22339 HEADER OPERATION: Laparoscopic cholecystectomy PRE-OP DIAGNOSIS: Calculus of gallbladder with chronic cholecystitis without obstruction TISSUE SUBMITTED: Adriel avalos MICROSCOPIC DESCRIPTION Slides are reviewed. MICROSCOPIC DIAGNOSIS Gallbladder: Chronic cholecystitis and cholelithiasis. PITER:trevor 01/26/18 Signed Osmany Velarde 01/26/18 <signature on file> 59-Evl-81852:18 CBC-Complete Blood Cnt No Diff Comments: [facility] [address] [place], [place], [address] MPV 11.2 fL (Normal) Range: 6.2-12.0 PLT [...] 4.2-5.4 WBC 3.3 K/mm3 (Abnormal) Range: 4.4-11.0 65-Mqr-92392:11 HEPATIC FUNCTION PANEL Comments: PATIENT NOT FASTINGPERFORMED BY: [facility] Uxzjim5217 [facility] [id number] (30902) ALT (SGPT) 20 [iU]/L (Normal) Range: 0-32 AST (SGOT) 17 [iU]/L (Normal) Range: 0-40 Alkaline Phosphatase 78 [iU]/L (Normal) Range: 39-117 Bilirubin, Direct 0.17 mg/dL (Normal) Range: 0.00-0.40 Bilirubin, Total 0.9 mg/dL (Normal) Range: 0.0-1.2 Albumin 4.4 g/dL (Normal) Range: 3.6-4.8 Protein, Total 6.8 g/dL (Normal) Range: 6.0-8.5 :11 PARATHORMONE (85606) Comments: PATIENT NOT FASTINGPERFORMED BY: [facility] Gwvldr[address]7 [address] InformantonlineEcu [facility] Hospitalin [place] [id number] PTH, Intact 45 pg/mL (Normal) Range: 15-65 :11 CALCIUM SERUM (22332) Comments: PATIENT NOT FASTINGPERFORMED BY: [employer] [place] [facility]in [place] [id number] Calcium 9.0 mg/dL (Normal) Range: 8.7-10.3 :35 HEPATITIS PANEL (68464) Comments: PATIENT NOT FASTINGPERFORMED BY: [employer] [facility] [id number] Hep C Virus Ab <0.1 {s/co_ratio} (Normal) Range: 0.0-0.9 Comments: Negative: < 0.8 Indeterminate: 0.8 - 0.9 Positive: > 0.9 . The CDC recommends that a positive HCV antibody result be followed up with a HCV Nucleic Acid Amplification test (346956). Hep B Core Ab, IgM Negative (Normal) HBsAg Screen Negative (Normal) Hep A Ab, IgM Negative (Normal) :35 MSXCV-JNZVIBBBMMT-HHOLJ (65636) Comments: PATIENT NOT FASTINGPERFORMED BY: [employer] Hjdrld5539 [address] [facility] [place] [id number] AFP, Serum, Tumor Marker 8.0 ng/mL (Normal) Range: 0.0-8.3 Comments: Alexandra ECLIA methodology :49 Urinalysis, Office (25448) URINE UROBILINGN JEANNINE TIMED 2 mg/dL (Normal) [...] With Differential/Platelet Comments: PATIENT WAS FASTINGPERFORMED BY: LabBeaumont Hospital6370 [facility] [id number] Immature Grans (Abs) 0.0 {x10E3/uL} (Normal) Range: [...] Panel (14) Comments: PATIENT WAS FASTINGPERFORMED BY: [facility]CoL[facility] Bur[facility] CountyJxyfwo5209 [facility] [id number] ALT (SGPT) 91 [iU]/L (Abnormal) Range: 0-32 [...] With LDL/HDL Comments: PATIENT WAS FASTINGPERFORMED BY: [facility]CoL[facility] Burlington CountyNmmhpj3033 [facility] [id number] Ratio LDL/HDL Ratio 1.6 (Normal) Range: 0.0-3.2 [...] Microscopic Examination Comments: PATIENT WAS FASTINGPERFORMED BY: Lattice EnginesLourdes Medical Center of Burlington CountyFzyruy8546 [facility] [id number] Bacteria Few (Normal) Mucus Threads Present (Normal) Epithelial Cells (non 0-10 {/hpf} Range: 0 - 10 renal) (Normal) RBC 0-2 {/hpf} (Normal) Range: 0 - 2 WBC 11-30 {/hpf} Range: 0 - 5 (Abnormal) TSH 2.840 {uIU/mL} Comments: PATIENT WAS FASTINGPERFORMED BY: [employer] Ohmuhu8360 [facility] [id number] :15 (Normal) Range: 0.450-4.500 :15 Urinalysis, Complete Comments: PATIENT WAS FASTINGPERFORMED BY: el[employer] Poazkx5843 [facility] [id number] Microscopic Examination See below: (Normal) Comments: Microscopic was indicated and was performed. Nitrite, Urine Positive (Abnormal) Urobilinogen,Semi-Qn 0.2 mg/dL (Normal) Range: 0.2-1.0 Bilirubin Negative (Normal) Occult Blood Negative (Normal) Ketones Negative (Normal) Glucose Negative (Normal) Protein Negative (Normal) WBC Esterase 2+ (Abnormal) Appearance Clear (Normal) Urine-Color Yellow (Normal) pH 7.5 (Normal) Range: 5.0-7.5 Specific [place] 1.015 (Normal) Range: 1.005-1.030 :06 URINE YAIR CULTURE-IDENTIFICATN Comments: PATIENT NOT FASTINGPERFORMED BY: Local FuneralBeaumont Hospital6370 [facility] [id number] Information: SRC:CARMEN (30005) Antimicrobial MIHEAD (Normal) Comments: S = Susceptible; [...] mL (Abnormal) Urine Final report Culture,Comprehensive (Abnormal) 64-Ykj-958923:41 Urinalysis, Office (87666) UA - LEUKOCYTE ESTERASE Small (Normal) UA - NITRITE Negative (Normal) URINE UROBILINGN JEANNINE TIMED 2 mg/dL (Normal) UA - PROTEIN Negative mg/dL (Normal) UA - PH 7 (Normal) UA - BLOOD Negative (Normal) UA - SPECIFIC GRAVITY 1.020 (Normal) UA - KETONES Negative mg/dL (Normal) UA - BILIRUBIN Negative (Normal) UA - GLUCOSE Negative (Normal) :07 MAGNESIUM (44651) Comments: PATIENT NOT FASTINGPERFORMED BY: [facility] Kkxogv2399 [facility] [id number] Magnesium, Serum 2.1 mg/dL (Normal) Range: 1.6-2.3 :07 POTASSIUM SERUM (53239) Comments: PATIENT NOT FASTINGPERFORMED BY: [facility] Czviwy5902 [facility] [id number]; OV today Potassium, Serum 3.7 mmol/L (Normal) Range: 3.5-5.2 :32 Culture, Urine Comments: [facility] [address] [place], [place], [address] CUUR See Note (Normal) Comments: Urine CultureBelow infection level. ORGANISM 1: Gram negative rodColony Count <1000 :30 CBC W/Diff, Automated Comments: [facility] [address] [place], [place], [address] Absolute Lymph 1.01 {X10_3/ul} (Normal) Range: 0.83-4.51 [...] 4.2-5.4 WBC 4.0 K/mm3 (Abnormal) Range: 4.4-11.0 15-Hbf-53732:30 Comprehensive Metabolic Profil Comments: [facility] [address] [place], [address] GAP 9 (Normal) Range: 5-15 CO2 29.0 [...] 7-18 GLU 99 mg/dL (Normal) Range: 70-110 28-Vzn-09979:30 Lipid Profile Comments: [facility] [address]vk[address] [facility] [place], [place], [address] VLDL 15 mg/dL (Normal) Range: 5-40 LDL [...] High Risk :30 Vitamin D,25 Hydroxy Comments: [facility] [address] [facility] [place], [place], [address] Vitamin D 25-OH 40.8 ng/mL (Normal) Comments: Vitamin D 25(OH) Status Range Deficiency <20 ng/mL (50nmol/L) Insuffciency 20 - 30 ng/mL (50 - 75 nmol/L) Sufficiency 30 - 100 ng/mL (75 - 250 nmol/L) Toxicity >100 ng/mL (>250 nmol/L) 2-Tah-735738:00 Culture, Urine Comments: [facility] [address] [place], [address] CUUR See Note (Normal) Comments: Urine CultureORGANISM [...] $ <=20 S(NF) indicates non-formulary drug at [facility]. Approval by Infectious Disease Specialist required before non-formulary drugs may be ordered and/or dispensed. 5-Qpo-804205:59 CALCIFEDIOL (85016) Comments: today; PATIENT NOT FASTINGPERFORMED BY: [facility]6370 [facility] [id number] Vitamin D, 25-Hydroxy 59.8 ng/mL (Normal) Range: 30.0-100.0 Comments: Vitamin D deficiency has been defined by the Reading ofMedicine and an Endocrine Society practice guideline as alevel of serum 25-OH vitamin D less than 20 ng/mL (1,2).The Endocrine Society went on to further define vitamin Dinsufficiency as a level between 21 and 29 ng/mL (2).1. IOM (Reading of Medicine). 2010. Dietary reference intakes for calcium and D. [place]: The National Academies Press.2. Jaz MF, Chapo HOPE, Papito ROBERT, et al. Evaluation, treatment, and prevention of vitamin D deficiency: an Endocrine Society clinical practice guideline. JCEM. 2010; 96(7):1911-30. 1-Ozz-677710:59 URINE YAIR CULTURE-IDENTIFICATN Comments: PATIENT NOT FASTINGPERFORMED BY: CB [facility] Pzegxp5814 Argueta RoadDublin [place] [id number] Information: SRC: (73908) Result 1 ECV (Abnormal) Comments: Escherichia coli, [...] report Culture,Comprehensi (Abnormal) ve 14-May-20179:34 Urinalysis, Office (38193) UA - LEUKOCYTE ESTERASE Moderate (Normal) UA - NITRITE Negative (Normal) URINE UROBILINGN JEANNINE TIMED Normal mg/dL (Normal) UA - PROTEIN Negative mg/dL (Normal) UA - PH 7.5 (Normal) UA - BLOOD Non Hemolyzed Trace (Normal) UA - SPECIFIC GRAVITY 1.010 (Normal) UA - KETONES Negative mg/dL (Normal) UA - BILIRUBIN Negative (Normal) UA - GLUCOSE Negative (Normal) 54-Lgt-397614:31 URINE YAIR CULTURE-JEANNINE COL Comments: PATIENT NOT FASTINGPERFORMED BY: [facility] Hdqprx5588 Ar[address] Roadblin [place] [id number] Information: SRC:CARMEN COUNT (59293) Antimicrobial MIHEAD (Normal) Comments: S = Susceptible; [...] mL (Abnormal) Urine Final report Culture,Comprehensive (Abnormal) 27-Mnf-46725:59 Urinalysis, Office (96521) UA - LEUKOCYTE ESTERASE Large (Normal) UA - NITRITE Negative (Normal) URINE UROBILINGN JEANNINE TIMED Normal mg/dL (Normal) UA - PROTEIN Negative mg/dL (Normal) UA - PH 6 (Abnormal) UA - BLOOD Hemolyzed Large (Normal) UA - SPECIFIC GRAVITY 1.010 (Normal) UA - KETONES Negative mg/dL (Normal) UA - BILIRUBIN Negative (Normal) UA - GLUCOSE Negative (Normal) :12 CBC WITH MANUAL DIFF (87858) Comments: PATIENT NOT FASTINGPERFORMED BY: [facility] Ltuuni8020 [facility] [id number] Immature Grans (Abs) 0.0 {x10E3/uL} (Normal) Range: [...] CREATININE RATIO Comments: PATIENT WAS FASTINGPERFORMED BY: [facility] EquationThe [facility] [id number] (15284) AND (95269) Microalb/Creat Ratio 11.2 {mg/g_creat} (Normal) Range: 0.0-30.0 Microalbumin, Urine 13.2 ug/mL (Normal) Creatinine, Urine 117.4 mg/dL (Normal) :28 CALCIFEDIOL (54426) Comments: PATIENT WAS FASTINGPERFORMED BY: [facility] EquationThe [facility] [id number] Vitamin D, 25-Hydroxy 68.0 ng/mL (Normal) Range: 30.0-100.0 Comments: Vitamin D deficiency has been defined by the Reading ofMedicine and an Endocrine Society practice guideline as alevel of serum 25-OH vitamin D less than 20 ng/mL (1,2).The Endocrine Society went on to further define vitamin Dinsufficiency as a level between 21 and 29 ng/mL (2).1. IOM (Reading of Medicine). 2010. Dietary reference intakes for calcium and D. [place]: The National Academies Press.2. Jaz MF, Chapo [place], Debby-Manjit ROBERT, et al. Evaluation, treatment, and prevention of vitamin D deficiency: an Endocrine Society clinical practice guideline. JCEM. 2010; 96(7):1911-30. :28 TSH (THYROID STIMULATING Comments: PATIENT WAS FASTINGPERFORMED BY: [facility] EquationThe [facility] [id number] HORMONE) (53373) TSH 3.970 {uIU/mL} (Normal) Range: 0.450-4.500 :28 LIPID PANEL (79938) Comments: PATIENT WAS FASTINGPERFORMED BY: Lattice EnginesLourdes Medical Center of Burlington CountyYzjvwa4253 [facility] [id number] LDL/HDL Ratio 1.4 {ratio_units} (Normal) Range: 0.0-3.2 [...] PANEL, COMPREHENSIVE Comments: PATIENT WAS FASTINGPERFORMED BY: [employer] Wdrpmx5244 [facility] [id number] (22526) ALT (SGPT) 25 [iU]/L (Normal) Range: 0-32 [...] Glucose, Serum 89 mg/dL (Normal) Range: 65-99 51-How-44460:28 CBC, PLATELETS & AUT DIFF Comments: PATIENT WAS FASTINGPERFORMED BY: [facility] Myfdmr4709 [facility] [id number] (25559) Immature Grans (Abs) 0.0 {x10E3/uL} (Normal) Range: [...] CREATININE RATIO Comments: PATIENT WAS FASTINGPERFORMED BY: [facility]eralBeaumont Hospital6370 [facility] [id number] (21519) AND (86858) Microalb/Creat Ratio 15.5 {mg/g_creat} (Normal) Range: 0.0-30.0 Microalbumin, Urine 8.6 ug/mL (Normal) Creatinine, Urine 55.6 mg/dL (Normal) :27 CALCIFEDIOL (66797) Comments: PATIENT WAS FASTINGPERFORMED BY: [employer] Vbnyhg9869 [facility] [id number] Vitamin D, 25-Hydroxy 29.7 ng/mL (Abnormal) Range: 30.0-100.0 Comments: Vitamin D deficiency has been defined by the Reading ofUniversity Hospitals Geauga Medical Centercine and an Endocrine Society practice guideline as alevel of serum 25-OH vitamin D less than 20 ng/mL (1,2).The Endocrine Society went on to further define vitamin Dinsufficiency as a level between 21 and 29 ng/mL (2).1. IOM (Reading of Medicine). 2010. Dietary reference intakes for calcium and D. [place]: The National Academies Press.2. Jaz MF, Chapo HOPE, Papito ROBERT, et al. Evaluation, treatment, and prevention of vitamin D deficiency: an Endocrine Society clinical practice guideline. JCEM. 2010; 96(7):1911-30. :27 LIPID PANEL (10054) Comments: PATIENT WAS FASTINGPERFORMED BY: [facility]eral[facility] Hospital6370 [facility] [id number] LDL/HDL Ratio 1.5 {ratio_units} (Normal) Range: 0.0-3.2 [...] Cholesterol, Total 176 mg/dL (Normal) Range: 100-199 12-Fnx-656737:27 METABOLIC PANEL, COMPREHENSIVE Comments: PATIENT WAS FASTINGPERFORMED BY: [facility] EquationThe [facility] [id number] (26995) ALT (SGPT) 22 [iU]/L (Normal) Range: 0-32 [...] Glucose, Serum 89 mg/dL (Normal) Range: 65-99 95-Fan-745348:27 CBC, PLATELETS & AUT DIFF Comments: PATIENT WAS FASTINGPERFORMED BY: [facility]in [place] [id number] Information: [id number],[id number] (31145) Immature Grans (Abs) 0.0 {x10E3/uL} Range: 0.0-0.1 [...] CYTOSPIN ON FLUID See Note (Normal) Comments: [facility] [address] [place], [place], [address] Comments: Patient: YARELIS BURROWS : 1955 (60/F) Acct Num: [id number] Phys: Jacky PARDO,Carmine Tompkins Unit Num: [id number] Loc: [facility] Specimen: [id number] Received: 04/21/16 - 1323 Spec Type: CYSPIN FL TISSUES TISSUES: COMMENT Differential diagnosis includes infection, calculi or low-grade urothelial neoplasm. CYTOLOGY GROSS Received is 60 ml of clear yello w fluid labeled with the patient's name and and designated per the requisition as urine. Submitted for cytology preparation. 04/21/16 TC:5 CPT: 28318 CYTOLOGY STUDY Slides are reviewed. The specimen [...] Signed Osmany Velarde 04/22/16 <signature on file> 94-Nzp-718590:17 URINE YAIR CULTURE-JEANNINE COL Comments: PATIENT NOT FASTINGPERFORMED BY: [facility] Kwdcjw4984 [facility] [id number] Information: SRC:[facility] [id number] COUNT (65834) Result 1 CNSNSS (Abnormal) Comments: Coagulase negative [...] S Urine Final report Culture,Comprehens (Abnormal) tracey 44-Tgo-474742:10 Urinalysis, Office (82659) UA - LEUKOCYTE ESTERASE Negative (Normal) UA - NITRITE Negative (Normal) URINE UROBILINGN JEANNINE TIMED Normal mg/dL (Normal) UA - PROTEIN Negative mg/dL (Normal) UA - PH 7 (Normal) UA - BLOOD Non Hemolyzed Moderate (Normal) UA - SPECIFIC GRAVITY 1.010 (Normal) UA - KETONES Negative mg/dL (Normal) UA - BILIRUBIN Negative (Normal) UA - GLUCOSE Negative (Normal) 0-Lxx-182074:54 URINE YAIR CULTURE-JEANNINE COL Comments: PATIENT NOT FASTINGPERFORMED BY: JUAN [facility] Dbtukn3827 [facility] [id number] Information: SRC:[facility] [id number] COUNT (84113) Antimicrobial MIHEAD (Normal) Comments: S = Susceptible; [...] mL (Abnormal) Urine Final report Culture,Comprehensive (Abnormal) 4-Rdg-032895:41 Urinalysis, Office (97383) UA - LEUKOCYTE ESTERASE Moderate (Normal) UA [...] SHELBY 4374 4.8 ng/dL (Normal) Range: 0.0-30.0 99-Iug-255788:06 Magnesium Comments: [facility] [address] [place], [place], [address] MG 2.1 mg/dL (Normal) Range: 1.8-2.4 46-Pxp-594462:06 Potassium Comments: [facility] [address] [place], [address] K 3.4 mmol/L (Abnormal) Range: 3.5-5.1 17-Tze-465833:06 Renin, Plasma Comments: [facility] (refer to report [...] 2.80 Na= >150 0.39 - 1.31Performed at: [facility] [employer] [id number] Director: Nomi Villeda MD, Phone: [phone] 87-Gby-725498:06 Thyroid Stim Hormone (TSH) Comments: [facility] [address] [place], [address] TSH 1.93 {uIU/mL} (Normal) Range: 0.358-3.74 10-Apr-20158:39 Potassium Comments: Test performed at:[facility] U[address]mpcvrsz[address] [place] [address] K 3.6 mmol/L (Normal) Range: 3.5-5.1 61-His-041312:43 Aldosterone, Urine Comments: PATIENT NOT FASTINGPERFORMED BY: LabJohn [facility] Azmcjx4977 [facility] [id number] BY: [address] [id number] Aldosterone,U, Timed 10.43 {ug/24_hr} (Normal) Range: 0.00-19.00 Comments: Adult Ranges Low Sodium Intake 20.00 - 80.00 Normal Sodium Intake 0.00 - 19.00 High Sodium Intake 0.00 - 12.00 Aldosterone U,Random 2.98 ug/L (Normal) 39-Tes-786069:43 Cortisol, Urinary Free Comments: PATIENT NOT FASTINGPERFORMED BY: [employer] [id number] BY: [address] [id number] Cortisol,F,ug/24hr,U 42 {ug/24_hr} (Normal) Range: 0-50 Cortisol,F,ug/L,U 12 ug/L (Normal) 05-Ezw-151854:43 Potassium, 24 hr Urine Comments: PATIENT NOT FASTINGPERFORMED BY: [employer] [id number] BY: [address] [id number] Information: C: [id number] START 5@6AM FI MARNIE Potassium, Urine 119.4 {mmol/24_hr} Range: 25.0-125.0 (Normal) Potassium, Urine 34.1 mmol/L (Normal) Renin Activity, Plasma <0.15 {ng/mL/hr} Comments: PATIENT NOT FASTINGPERFORMED BY: [address] [id number] Information: [id number],[id number] :48 (Normal) Comments: Adult Normal Salt Intake: Upright 1.31 - 3.95 Supine 0.15 - 2. 33 . Salt Excretion (Na mEq/24 hr): Na= 0 - 30 8.82 - 23.86 Na= 30 - 75 4.09 - 7.73 Na= 75 - 150 1.44 - 2.80 Na= >150 0.39 - 1.31 :58 Aldosterone LCMS, Serum Comments: PATIENT NOT FASTINGPERFORMED BY: [address] [id number] BY: [address] [id number] Aldosterone 6.0 ng/dL (Normal) Range: 0.0-30.0 : Magnesium, Serum 2.1 mg/dL (Normal) Comments: PATIENT NOT FASTINGPERFORMED BY: LabCoLourdes Medical Center of Burlington CountyVtlnnx8540 [facility] [id number] BY: LabAnthony Ville [address] [facility] [id number] Range: 1.6-2.6 : TSH 2.160 {uIU/mL} Comments: PATIENT NOT FASTINGPERFORMED BY: LabCoMaria Ville 4242170 [facility] [id number] BY: LabCo[address] [id number] Inf ormation: [id number] 58 (Normal) Range: 0.450-4.500 6-Iyh-141227:00 Comprehensive Metabolic Profil Comments: Test performed at:[facility] [address] [place], [place] [address] GAP 6 (Normal) Range: 5-15 CO2 32.0 [...] 7-18 GLU 92 mg/dL (Normal) Range: 70-110 2-Rgh-253007:00 Lipid Profile Comments: Test performed at:[facility] [address] [place], [place] [address] VLDL 14 mg/dL (Normal) Range: 5-40 LDL [...] 200-240 mg/dL Borderline >240 mg/dL High Risk 49-Dcs-56915:14 Urinalysis, Office (36903) UA - LEUKOCYTE ESTERASE Trace (Normal) UA - NITRITE Negative (Normal) URINE UROBILINGN JEANNINE TIMED Normal mg/dL (Normal) UA - PROTEIN Negative mg/dL (Normal) UA - PH 7.0 (Normal) UA - BLOOD Non Hemolyzed Trace (Normal) UA - SPECIFIC GRAVITY 1.020 (Normal) UA - KETONES Negative mg/dL (Normal) UA - BILIRUBIN Negative (Normal) UA - GLUCOSE Negative (Normal) 52-Dej-76691:55 URINE YAIR CULTURE-JEANNINE COL Comments: PATIENT NOT FASTINGPERFORMED BY: [employer] [facility] Qlbfmh1651 [facility] [id number] Information: SRC: URETHRA COUNT (59948) Result 1 MUG (Normal) Comments: Mixed urogenital flora1,000 Colonies/mL Urine Culture,Comprehensive Final report (Normal) 80-Gxc-085581:48 URINE YAIR CULTURE-JEANNINE COL Comments: PATIENT NOT FASTINGPERFORMED BY: [employer] Apornh7937 [facility] [id number] Information: SRC:URC [id number] COUNT (53084) Antimicrobial MIHEAD (Normal) Comments: S = Susceptible; [...] mL (Abnormal) Urine Final report Culture,Comprehensive (Abnormal) 47-Jgp-724563:56 Urinalysis, Office (79102) UA - LEUKOCYTE ESTERASE Large (Normal) UA [...] COL Comments: PATIENT NOT FASTINGPERFORMED BY: [facility] [id number] [facility] [id number] Information: SRC:[facility] [id number] COUNT (42973) Result 1 ECV (Abnormal) Comments: Escherichia coli, [...] S Urine Final report Culture,Comprehensi (Abnormal) ve 8-Rwb-005672:18 Urinalysis, Office (09738) UA - LEUKOCYTE ESTERASE Large (Normal) UA - NITRITE Negative (Normal) URINE UROBILINGN JEANNINE TIMED Normal mg/dL (Normal) UA - PROTEIN 100 mg/dL (Normal) UA - PH 7 (Normal) UA - BLOOD Hemolyzed Large (Normal) UA - SPECIFIC GRAVITY 1.025 (Normal) UA - KETONES Negative mg/dL (Normal) UA - BILIRUBIN Negative (Normal) UA - GLUCOSE Negative (Normal) 12-Dgd-160705:40 POTASSIUM SERUM (99259) Comments: today; PATIENT NOT FASTINGPERFORMED BY: [facility] Emwyjx6114 [facility] [id number] Information: [id number] Potassium, Serum 3.9 mmol/L (Normal) Range: 3.5-5.2 9-Vex-211163:10 Comprehensive Metabolic Profil Comments: Test performed at:[facility] [address] [place], [place] [id number] GAP 4 (Abnormal) Range: 5-15 CO2 31.0 [...] 70-110 :10 Lipid Profile Comments: Test performed at:[facility] [address] [place], [place] [address] VLDL 19 mg/dL (Normal) Range: 5-40 LDL [...] Borderline >240 mg/dL High Risk :15 Magnesium (90825) Comments: today; PATIENT NOT FASTINGPERFORMED BY: elmenusLourdes Medical Center of Burlington CountyVtqcxe3317 [facility] [id number] Magnesium, Serum 2.2 mg/dL (Normal) Range: 1.6-2.6 :15 Potassium Serum (98745) Comments: today; PATIENT NOT FASTINGPERFORMED BY: [facility] Gbyquv3012 [facility] [id number] Information: [id number] Potassium, Serum 3.8 mmol/L (Normal) Range: 3.5-5.2 :48 Urinalysis, Office (19652) UA - LEUKOCYTE ESTERASE Negative (Normal) UA [...] Comments: PATIENT NOT FASTINGPERFORMED BY: JUAN [facility] Lxbisn[address] [place] [place] [id number] Information: SRC:UR [id number]; will review at appt. today COUNT (08836) Result 1 MUG (Normal) Comments: Mixed urogenital flora1,000 Colonies/mL Urine Culture,Comprehensive Final report (Normal) 38-Pkr-95047:09 Urinalysis, Office (73727) UA - LEUKOCYTE ESTERASE Negative (Normal) UA [...] CHOL 169 mg/dL (Normal) Comments: <200 mg/dL Hirynqzfb008-568 mg/dL Borderline>240 mg/dL High Risk :33 Lipid Panel (05681) Comments: PATIENT WAS FASTINGPERFORMED BY: [place] [id number] [facility] [id number] Information: [id number] LDL/HDL Ratio 1.6 {ratio_units} (Normal) Range: 0.0-3.2 LDL Cholesterol Calc 96 mg/dL (Normal) Range: 0-99 VLDL Cholesterol Damon 12 mg/dL (Normal) Range: 5-40 HDL Cholesterol 59 mg/dL (Normal) Comments: According to ATP-III Guidelines, HDL-C >59 mg/dL is considered anegative risk factor for CHD. Triglycerides 59 mg/dL (Normal) Range: 0-149 Cholesterol, Total 167 mg/dL (Normal) Range: 100-199 2-Kku-916228:33 HEPATIC FUNCTION PANEL Comments: PATIENT WAS FASTINGPERFORMED BY: [place] [id number] [facility] [id number] (77001) ALT (SGPT) 36 [iU]/L (Abnormal) Range: 0-32 AST (SGOT) 29 [iU]/L (Normal) Range: 0-40 Alkaline Phosphatase, S 76 [iU]/L (Normal) Range: 39-117 Bilirubin, Direct 0.20 mg/dL (Normal) Range: 0.00-0.40 Bilirubin, Total 0.8 mg/dL (Normal) Range: 0.0-1.2 Albumin, Serum 4.1 g/dL (Normal) Range: 3.5-5.5 Protein, Total, Serum 6.6 g/dL (Normal) Range: 6.0-8.5 :27 METABOLIC PANEL, Comments: health screening labs; PATIENT WAS FASTINGPERFORMED BY: [place] [id number] [facility] [id number] Information: [id number] COMPREHENSIVE (90392) ALT (SGPT) 19 [iU]/L (Normal) Range: 0-32 [...] mg/dL (Normal) Range: 65-99 :27 LIPID PANEL (86418) Comments: PATIENT WAS FASTINGPERFORMED BY: LabCoLourdes Medical Center of Burlington CountyPxltdl4146 [facility] [id number] LDL/HDL Ratio 3.7 {ratio_units} (Abnormal) Range: 0.0-3.2 [...] Slade M.D.January 18, 2013 at 10:24:09 AM [phone] Signed GP/GP If you are the referring physician and would like to consult with theradiologist who provided this interpretation, please contact Albania Thomas at [phone]. If this radiologist is unavailable, youwill be directed to another radiologist t o assist. If you are a patient with a question regarding this report, pleasecontactyour referring physician directly. Professional Interpretation Provided By: [employer], Phone ,Fax These documents contain legally protected [...] 1027 Sign b y: Armen Slade MD 07-Kgv-75419:08 Metabolic Panel, Comments: today; PATIENT NOT FASTINGPERFORMED BY: LabCoLour[facility] Center of Burlington CountyNwbttu6690 [facility] [id number] Information: [id number] Comprehensive (11354) ALT (SGPT) 29 [iU]/L (Normal) Range: 0-32 [...] mg/dL (Abnormal) Range: 65-99 :19 Urinalysis, Office (80699) UA - BILIRUBIN Negative (Normal) UA - [...] 200-240 mg/dL Borderline >240 mg/dL High Risk 5-Pgh-741233:26 BILAT SCRN DIGITAL & CAD Radiology Report See Note (Normal) Comments: Exam Number: [id number] AMMOGRAPHY - BILATERAL SCREENING INDICATION:Routine annual screening [...] a Res ultCode to this exam. ADDENDUM: [id number] HPBI/MDS Reported By: DAVION BA M.D. 3-Ooe-373509:26 DEXA BONE DENSITY STUDY (HP) Radiology Report See Note (Normal) Comments: Exam Number: [id number] LINICAL:This is a 55-year-old female patient for postmenopausal screening. EXAMINATION:DUAL ENERGY X-RAY ABSORPTIOMETRY / DEXA. TECHNIQUE:Bone Density Measurements (BMD) of lumbar spine and bilateral hips were obtained using a [employer] Pro scanner.. COMPARISON:Comparison is made with prior examination [...] Osteoporosis Foundation [email or web address]://[email or web address].org Reported By: ARMEN SLADE 3-Xbs-736337:40 CBC MCH 32.1 pg (Abnormal) Range: 27.0-32.0 [...] :40 PTT 29.1 s (Normal) Range: 25.2-36.2 26-Kdl-962484:10 Urinalysis, Office (61975) UA - LEUKOCYTE ESTERASE Trace (Normal) UA - NITRITE Negative (Normal) URINE UROBILINGN JEANNINE TIMED 2 mg/dL (Normal) UA - PROTEIN Negative mg/dL (Normal) UA - PH 6.5 (Normal) UA - BLOOD Negative (Normal) UA - SPECIFIC GRAVITY 1.005 (Normal) UA - KETONES Negative mg/dL (Normal) UA - BILIRUBIN Negative (Normal) UA - GLUCOSE Negative (Normal) 29-Mmn-891366:04 URINE YAIR CULTURE-JEANNINE COL Comments: PATIENT NOT FASTINGPERFORMED BY: [facility] Ibqinn3910 [facility] [id number] Information: SRC: URINE COUNT (63636) Antimicrobial MIHEAD (Normal) Comments: S = Susceptible; [...] mL (Normal) Urine Final report (Normal) Culture,Comprehensive 12-Xja-584262:03 Urinalysis, Office (95689) UA - LEUKOCYTE ESTERASE Small (Normal) UA - NITRITE Negative (Normal) URINE UROBILINGN JEANNINE TIMED Normal mg/dL (Normal) UA - PROTEIN Negative mg/dL (Normal) UA - PH 7.0 (Normal) UA - BLOOD Non Hemolyzed Moderate (Normal) Comments: Large UA - SPECIFIC GRAVITY 1.010 (Normal) UA - KETONES Negative mg/dL (Normal) UA - BILIRUBIN Negative (Normal) UA - GLUCOSE Negative (Normal) 4-Scr-948411:19 Urinalysis, Office (35710) UA - LEUKOCYTE ESTERASE Negative (Normal) UA - NITRITE Negative (Normal) URINE UROBILINGN JEANNINE TIMED 2 mg/dL (Normal) UA - PROTEIN Negative mg/dL (Normal) UA - PH 7.0 (Normal) UA - BLOOD Negative (Normal) UA - SPECIFIC GRAVITY 1.010 (Normal) UA - KETONES Negative mg/dL (Normal) UA - BILIRUBIN Negative (Normal) UA - GLUCOSE Negative (Normal) 99-Gxf-776727:04 Urinalysis, Office (34691) UA - BILIRUBIN Negative (Normal) UA - [...] Indication: Chest pain Chest pain : Reviewed [employer] Manager Letter Indication: Chest pain Chest pain [...] : Follow up in [address] [facility] Indication: Nausea alone Wheezing : Follow up [...] not specified Planned Observations Metabolic Panel, Comprehensive (93647)Indication: Hypercholesteremia On: 16-Yas-49395:58 Request LIPID PANEL (74117)Indication: Hypercholesteremia On: :55 Request D-Dimer (52397)Indication: Chest pain on breathing On: 46-Sev-462639:20 Request Comments: STAT LOYXJ-WTCHNUKPQZO-OGVEC (16800)Indication: Elevated liver enzymes On: 19-Jul-20189:16 Request Parathyroid Hormone-related Peptide (PTH-rP) (24179)Indication: Hypercalcemia On: :42 Request CBC, Platelets & Auto Diff (78651)Indication: Headache On: 9-Mmj-330859:55 Request Lipid Panel (80722)Indication: Headache On: 9-Qoh-614627:53 Request TSH (29908)Indication: Headache On: 8-Ngv-459482:52 Request URINALYSIS, W/ MICRO (60823)Indication: Hematuria On: 9-Vhp-431309:52 Request CALCIFEDIOL (06975)Indication: Osteoporosis On: :02 Request Comments: Aug 2017 CBC, Platelets & Auto Diff (29625)Indication: GERD (gastroesophageal reflux disease) On: :01 Request Comments: Aug 2017 Metabolic Panel, Comprehensive (10757)Indication: Hypercholesteremia On: : Request Comments: Aug 2017 Lipid Panel (32887)Indication: Hypercholesteremia On: : Request Comments: Aug 2017 LIPID PANEL (23200)Indication: Hypercholesteremia On: :39 Request Comments: in six months (approximately) METABOLIC PANEL, COMPREHENSIVE (08238)Indication: Hypercholesteremia On: :39 Request Aldosterone,24-Hour Urine (17828)Indication: Hypokalemia On: :37 Request Comments: pt to take salt load by salt food POTASSIUM SERUM (10204)Indication: Hypokalemia On: :34 Request POTASSIUM SERUM (16169)Indication: Hypokalemia On: :40 Request MAGNESIUM (09472)Indication: Hypokalemia On: :55 Request POTASSIUM SERUM (58558)Indication: Hypokalemia On: :54 Request Comments: 2 weeks ALDOSTERONE (55594)Indication: Hypokalemia On: :46 Request RENIN (78936)Indication: Hypokalemia On: :46 Request TSH (THYROID STIMULATING HORMONE) (13089)Indication: Hypokalemia On: :45 Request POTASSIUM URINE (96409)Indication: Hypokalemia On: :44 Request Comments: 24 hour urine CORTISOL FREE (44433)Indication: Hypokalemia On: :44 Request Comments: 24 hour urine Aldosterone,24-Hour Urine (03143)Indication: Hypokalemia On: :43 Request POTASSIUM SERUM (68571)Indication: Hypokalemia On: :22 Request METABOLIC PANEL, COMPREHENSIVE (57218)Indication: Hypercholesteremia On: :22 Request Comments: in six months (approximately) LIPID PANEL (95405)Indication: Hypercholesteremia On: :22 Request Comments: in six months (approximately) METABOLIC PANEL, COMPREHENSIVE (68552)Indication: Hypercholesteremia On: :50 Request Comments: in six months (approximately) LIPID PANEL (93237)Indication: Hypercholesteremia On: :50 Request Comments: in six months (approximately) METABOLIC PANEL, COMPREHENSIVE (17743)Indication: Hypercholesteremia On: :45 Request LIPID PANEL (84244)Indication: Hypercholesteremia On: :45 Request CBC WITH MANUAL DIFF (57119)Indication: Hypercholesteremia On: :45 Request URINE YAIR CULTURE-IDENTIFICATN (78372)Indication: Hematuria, unspecified On: :36 Request CALCULUS CHEMICAL QUANTI (78985)Indication: History of kidney stones On: :28 Request METABOLIC PANEL, COMPREHENSIVE (36339)Indication: Elevated blood-pressure reading without diagnosis of hypertension On: 85-Eyi-764996:15 Request LIPID PANEL (94865)Indication: Elevated blood-pressure reading without diagnosis of hypertension On: 05-Psi-750467:15 Request CALCIFIDIOL (12107) VIT D 25Indication: Osteoporosis On: 18-Txp-79467:00 Request TSH (83183)Indication: Stress reaction On: :56 Request URINALYSIS, W/ MICRO (61523)Indication: Elevated blood-pressure reading without diagnosis of hypertension On: :56 Request LIPID PANEL (26735)Indication: Elevated blood-pressure reading without diagnosis of hypertension On: :55 Request CBC WITH MANUAL DIFF (91662)Indication: Elevated blood-pressure reading without diagnosis of hypertension On: :55 Request METABOLIC PANEL, COMPREHENSIVE (92894)Indication: Osteoporosis On: :55 Request URINE YAIR CULTURE-IDENTIFICATN (76356)Indication: Hematuria, unspecified On: 32-Zfk-050670:04 Request URINALYSIS (44333)Indication: Hematuria On: 2-Hyq-560091:09 Request Lipid Panel (17586)Indication: Screening for lipid disorders On: 3-Oqm-084042:09 Request CALCIFIDIOL (87035) VIT D 25Indication: Osteoporosis On: :08 Request CBC (Auto) (92357)Indication: Osteoporosis On: :07 Request Metabolic Panel, Comprehensive (07241)Indication: Osteoporosis On: :07 Request Planned Encounters Medical; 3 Month FU - On: 19-Oct-2018 8:30 [facility] Mylene Craig CNP, CNP, Mary E Planned Procedures Echo CompleteBy: Mylene Craig CNP On: 24-Aug-2018 Intent Mylene Craig CNP COMPUTED TOMOGRAPHY ANGIOGRAPHY OF On: 04-Aug-2018 Intent CHEST FOR PULMONARY EMBOLISM (59096)By: Katarina Bourgeois CHEST XRAY, PA & LATERAL (31030)By: On: 04-Aug-2018 Intent Katarina Bourgeois Ultrasound - LiverBy: Kiara GRIFFITH, On: 10-Dec-2017 Intent Mylene León CNP SCREENING DIGITAL TOMOSYNTHESIS OF On: 10-Dec-2017 Intent BREAST (39380)By: Mylene Craig CNP, CNP, Mary E Flu Vaccine (Quadrivalent) 07069Uf: On: 27-Aug-2017 Intent Mylene Craig CNP, CNP, Mary E Comments: lot: [id number]: 03/28/18ite/route: L analilia, IMamt: 0.5mlVIS and ABN signed when applicableCarmen [facility] Ear Irrigation (91014)By: Kiara On: 27-Aug-2017 Intent Mylene GRIFFITH CNP, Mary E Comments: IrrigationSite- L and RAmount/Color/Quality - medium amount removed from L ear and minimal from RTolerated [facility] healthC[facility] Bone Density StudyBy: Kiara GRIFFITH, On: 14-May-2017 Intent Mylene León CNP Comments: Repeat Oct 2017 MAMMOGRAM, SCREENING, BOTH BREAST On: 25-Aug-2016 Intent (67105)By: Manjit Musa MD Flu Vaccine (Quadrivalent) 92811Wi: On: 25-Aug-2016 Intent Manjit Musa MD Comments: Lot #[id number]/30/17ite-L dltd, IMDose prefilled syringegiven by:THERESA Cardenas and ABN signed COMP EYE EXAMINATION, ESTAB PATIENT On: 13-Jan-2016 Intent (67509)By: Mylene Craig CNP, CNP, Mylene Duenas CT - Abdomen & Pelvis (Without On: 25-Nov-2015 Intent Contrast)By: Jennifer Spencer DO Comments: tonight - stat Toradol Injection, 30 mg On: 11-Nov-2015 Intent (J1885)By: Mylene Craig CNP, CNP, Mary E Wax CurettesBy: Reagan Sharp MD On: 16-Sep-2015 Intent Ear Irrigation (29148)By: Lila On: 16-Sep-2015 Intent Reagan PARDO LIMITED GALLIUM SCAN FOR On: 22-Apr-2015 Intent LOCALIZATION OF ABSCESS (16259)By: Comments: head and neck Reagan Sharp MD Echo CompleteBy: Reagan Sharp MD On: 25-Mar-2015 Intent MAMMOGRAM, SCREENING, BOTH BREAST On: 25-Mar-2015 Intent (93405)By: Reagan Sharp MD DEXA SCAN AXIAL SKELETON (07068)By: On: 25-Mar-2015 Intent Reagan Sharp MD Nuclear Medicine - Bone ScanBy: On: 25-Mar-2015 Intent Reagan Sharp MD EKG (75494)By: Reagan Sharp MD On: 25-Mar-2015 Intent Comments: see scanned document of test done to see results reviewed today with patient IMMUNIZ ADMNIN, 1 VAC, SNGL/COMBO On: 25-Mar-2015 Intent (76889)By: Reaagn Sharp MD [place] VACC, [place] (38450)By: Lila On: 25-Mar-2015 Intent Reagan PARDO Toradol Injection, 30 mg On: 15-Oct-2014 Intent (J1885)By: Mylene Carig CNP Comments: lot [id number] 10.10.1630mg right gmIMas, BIOMEDICAL MANAGER GLADIS Mylene Duenas SPECIMEN HANDLING/TRANSPORT On: 15-Oct-2014 Intent (80338)By: Kiara GRIFFITH YesicaYulissa Craig CNP Yesica MAMMOGRAM, SCREENING, BOTH BREAST On: 05-Sep-2014 Intent (42709)By: Reagan Sharp MD Flu Vaccine (Quadrivalent) 11398Xb: On: 10-Aug-2014 Intent Adrienne Tirado LPN ADMINISTRATION OF INFLUENZA VIRUS On: 10-Aug-2014 Intent VACCINE (G0008)By: Candida MADRID, Comments: X23SP6.15prefilled syringeL Dltd, IMAS, LPNABN and VIS signed Adrienne Rocephin Injection, 2 Gram On: 09-Aug-2014 Intent (J0696)By: Corine Rice DO Comments: 620015l5.1.172 gmbilateral gm IMAS, LPNABN and VIS signed Wax CurettesBy: Corine Rice DO On: 09-Aug-2014 Intent Ear Irrigation (53297)By: Dwayne On: 09-Aug-2014 Corine Hunt DO Comments: b/lmoderate amount of yellow wax removed bilaterallywax curette used Ultrasound - RenalBy: Lila PARDO, On: 26-Mar-2014 Intent Reagan Martin Radiology - KUBBy: Kiara GRIFFITH Mylene On: 21-Mar-2014 Intent E Kiara GRIFFITH Yesica Comments: today Toradol Injection, 30 mg On: 21-Mar-2014 Intent (J1885)By: Mylene Craig CNP, CNP Yesica SPECIMEN HANDLING/TRANSPORT On: 21-Mar-2014 Intent (04678)By: Kiara GRIFFITH YesicaYulissa Craig CNP Yesica IMMUNIZ ADMNIN, 1 VAC, SNGL/COMBO On: 27-Jun-2013 Intent (81650)By: Reagan Sharp MD FLU VAC, SPLIT, >3 YEARS, INTRAMUSC On: 27-Jun-2013 Intent (45718)By: Reagan Sharp MD MAMMOGRAM, SCREENING, BOTH BREASTS On: 27-Jun-2013 Intent (12112)By: Reagan Sharp MD DXA, BONE DENSITY, AXIAL SKELETON On: 27-Jun-2013 Intent (91071)By: Reagan Sharp MD Eprescribed prescriptions On: 27-Jun-2013 Intent (G8553)By: Ines Jensen LPN MAMMOGRAM, SCREENING, BOTH BREASTS On: 06-Jun-2013 Intent (98124)By: Reagan Sharp MD DXA, BONE DENSITY, AXIAL SKELETON On: 06-Jun-2013 Intent (85700)By: Reagan Sharp MD Phenergan Injection, up to 50 mg On: 18-Jan-2013 Intent (J2550)By: Mylene Craig CNP, CNP, Mary E CT - Abdomen & Pelvis Stone On: 18-Jan-2013 Intent ProtocolBy: Mylene Craig CNP Comments: today Mylene GRIFFITH Toradol Injection, 30 mg On: 18-Jan-2013 Intent (J1885)By: Mylene Craig CNP, CNP, Mary E Aerosol Treatment (40122)By: Kiara On: 31-Aug-2012 Intent Mylene GRIFFITH CNP, Mary E Bone Density StudyBy: Lila PARDO, On: 25-Apr-2012 Intent Reagan Martin IMMUNIZ ADMNIN, 1 VAC, SNGL/COMBO On: 27-Jul-2011 Intent (61527)By: Reagan Sharp MD FLU VAC, SPLIT, >3 YEARS, INTRAMUSC On: 27-Jul-2011 Intent (54910)By: Reagan Sharp MD TDAP VACCINE >7 IM (16456)By: Kiara On: 20-Mar-2010 Intent Mylene GRIFFITH CNP, Mary E Comments: Lot #[id number]-0/24/12Site-left deltoidgiven by:[facility] EKG (39657)By: Corine Rice DO On: 09-May-2009 Intent Comments: [...] : DISCONTINUED - CBC & PLATELETS (AUTO) (98948) Indication: Bruising Elevated liver enzymes : DISCONTINUED - HEPATIC FUNCTION PANEL (83950) Indication: Elevated liver enzymes Hypercholesteremia : How to access health information online Indication: Hypercholesteremia Hypercholesteremia : How to access health information online - Detail Indication: Hypercholesteremia Hypercholesteremia : Patient Instructions Indication: Hypercholesteremia Osteoporosis : DISCONTINUED - DEXA SCAN AXIAL SKELETON (64619) Indication: Osteoporosis Hypercholesteremia : DISCONTINUED - METABOLIC PANEL, COMPREHENSIVE (80564) Indication: Hypercholesteremia Hematuria : How to access [...] Advance Directives Name Dates Details Immunization Registry [place] - Effective on 07/19/2018. Effective: 19-Jul-2018 Expiration [...] off of atrovastatin, was taking statin at [facility] Diagnosis: Hypercholesteremia, BMI 29.0-29.9,adult, Nonsmoker, Elevated [...] was 2009Encounter Diagnosis: WWV V73.21 (Renamed from [facility]), Osteoporosis (733.00), Hypercholesterolemia (272.0), HEART MURMUR (785.2), [...] Nausea alone (787.02), WWV V73.21 (Renamed from [facility]), Headache, Tension (307.81), LOW BACK PAIN (724.2), [...] (733.00), GERD (530.81), WWV V73.21 (Renamed from [facility]) [facility] Office Visit On: 02-Nov-2011 [...] (530.81), Rosacea (695.3), WWV V73.21 (Renamed from [facility]), Stress Reaction (308.4) [facility] Office [...] End: 10-Dec-2008 12:12 [facility] Payers [facility] ANA Burrows; art guarantor
--- OUTSIDE RECORDS SUMMARY | 2018-11-03 01:12 | XMS RPT_ITS | Continuity of Care Document ---
:1955 Author Organization [facility] Address [address] [place] [address] Phone Care Team Providers Name Role Phone Kiara GLADISMylene E Unavailable Dr. 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 Calcium 1500 End : 19-Jul-2018 Discontinued CELEXA, 10MG (Oral Tablet) 1 Tablet daily for 0 days Quantity: 90 {Tablet} Refills: 3 Ordered:26-Mar-2014 Reagan Sharp MD Start : 26-Mar-2014 End : 26-Mar-2014 Discontinued CORTISPORIN, 3.5-97044-9 (Otic Solution) 4 Metric Drop tid for 0 days Quantity: 1 {Bottle} Refills: 0 Ordered:18-Dec-2014 Adrienne Tirado LPN Start : 24-Oct-2014 End : 18-Dec-2014 Discontinued Cranberry End : 19-Jul-2018 Discontinued EXTRA STRENGTH PAIN RELIEVER, 534-196-19NK (Oral Tablet) 2 qd prn headaches (250-250-65 [...] Status: Inactive as of 27-Aug-2017 Vaccine for zoxgcxhlxh-ylpbplr-obkyavaeu with poliomyelitis (Z23, V06.3) Status: Inactive as [...] View (Portable) Result: Comments: See Note; NOTES: [facility] Imaging Services [address] [place] [address] Chest 1 View (Portable) MR#: [id number] Acct: [id number] Name: YARELIS BURROWS Rep #: [id number] : 1955 F 63 From: Maico Lehman MD PCP: Mylene Craig NP Status: REG ER Study: Chest 1 View (Portable) Date of Exam: 08/06/18 Exam# [id number] Ordering Dr: Laurie Garber MD STUDY: X [...] CC: Mylene Craig NP; Laurie Garber MD Autism Teacher: Signed 04-Aug-2018 Chest PA and Lateral Result: Comments: See Note; NOTES: [facility] Imaging Services [address] [place] [address] Chest PA and Lateral MR#: [id number] Acct: [id number] Name: YARELIS BURROWS Rep #: [id number] : 1955 F 63 From: Maico Lehman MD PCP: Mylene Craig NP Status: REG CLI Study: Chest PA and Lateral Date of Exam: 08/04/18 Exam# [id number] Ordering Dr: Katarina Bourgeois INSULATION FOREMAN-C STUDY: X-RAY CHEST REASON FOR EXAM: Female, [...] , Service support , CC: Mylene Craig INSULATION FOREMAN; INSULATION FOREMAN-Iram Bourgeois Autism Teacher: Signed 10-Mar-2018 OT D/C Summary Result: Comments: See Note; NOTES: [facility] Occupational Therapy [facility] [address] [place] [address] Fax REHABILITATION SERVICES DIS CHARGE SUMMARY MR#: [id number] Acct: [id number] Name: YARELIS BURROWS Rep #: [id number] : 1955 62 From: Marlene Sexton Referring [...] but Pt. is able to straighten actively. [facility] assessment completed on date and is as follows; search engineer 54, 86; lateral R 17, L 15; [...] Resume Hobbies Goal:: Yarelis to increase R search engineer to that of L search engineer 2/3 trials 75% if the time to [...] R MF vs L MF are similar. Supply Assistant is to continue to progress through use and strengthening protocol through HEP. SHe is to call with questions/concerns. - D/C Informati on If there are questions or concerns regarding this patient's occupational therapy, please fell free to call me at [phone]. Thank you for the referral of this patient. Sincerely, Marlene Calvert rs <Electronically signed by Marlene Sexton > 03/10/18 1402 CC: Mylene Craig INSULATION FOREMAN; Chayo Ku DO KMB Signed 02-Feb-2018 Surgery Visit Report Result: Comments: See Note; NOTES: [facility] [address] [place] [address] OFFICE VISIT Date of Service: 02/01/18 MR#: [id number] Acct: [id number] Name: YARELIS RAMON Toni Rep #: [id number] : 1955 Provider: Jenise Julian PA-C Age/Sex: 62/F [place] [facility] Status: Signed Intake Intake Visit Reasons: f/u paulino 01/25/2018 dp Packing Supervisor Required: No Is patient in pain?: No [...] Operative Report Result: Comments: See Note; NOTES: [facility] Medical Records Department [address] [place] [address] Operative Report 01/25/18 1134 MR#: [id number] Acct: [id number] Name: ANDREW BURROWS Rep #: [id number] : 1955 62 From: Chidi Mo MD PCP: Mylene Craig NP Status: [facility] Location[place] [facility] Problem List (1) Calculus of gallbladder with chronic cholecystitis without ob struction Status: Acute Report of Operation Date of Procedure: 01/25/18 Pre-Operative Diagnosis: k 80.10 calculus of the gallbladder with chronic cholecystitis without obstruction Post-Operative Diagno sis: Same Surgery/Procedure Performed:: 52052 laparoscopic cholecystectomy Type of Anesthesia:: General Anesthesiologist: [...] Discharge Instruction Result: Comments: See Note; NOTES: [facility] Medical Records Department [address] [place] [address] Instructions for Home/Discharge Instructions 01/25/18 1133 MR#: [id number] Acct: [id number] Name: YARELIS BURROWS Rep #: [id number] : 1955 62 From: Chidi Mo MD PCP: Mylene Craig NP Status: REG [facility] Discharge Diet: Light diet - advance as [...] With: Chidi Mo MD - Please call [phone] to schedule an appointment. When: 7 days after your surgery. 01/25/18 2913 <Electronically signed by Chidi bishop MD> Date Chidi Mo MD CC: Mylene Craig NP 21-Jan-2018 12 Lead Electrocardiogram Result: Comments: See Note; NOTES: [facility] Cardiovascular Services [address] [place] [address] 12 Lead EKG 01/20/18 0837 MR#: [id number] Acct: [id number] Name: YARELIS BURROWS Rep #: [id number] : 1955 62 From: Anthony Ojeda MD Attending Dr: Chidi Mo MD Status: PRE SDC Ordering Dr: Chidi Mo MD Date: 01/20/18 Location: [facility] Sex: F C Admitted: Test Reason : PRE OP Blood Pressure : / mmHG Vent. Rate : 064 BPM Atrial Rate : 064 BPM P-R Int : 130 ms QRS Dur : 092 ms QT Int : 396 ms P-R-T Axes : 013 028 024 degrees QTc Int : 408 ms Normal sinus rhythm Normal ECG Confirmed by ASHLEY PARDO, ANTHONY ([id number]), fan mail editor CAITLIN NIELSON ([id number]) on 01/21/2018 11:35:11 AM Referred By: Chidi Mo Confirmed By:ANTHONY OJEDA MD 01/21/18 1135 Date Anthony Ojeda MD CC: Mylene Craig INSULATION FOREMAN; Chidi Mo MD Signed 31-Dec-2017 SCREENING MAMM (CAD), BILAT Result: Comments: See Note; NOTES: [facility] Imaging Services [address] [place] [address] SCREENING MAMM (CAD), BILAT MR#: [id number] Acct: [id number] Name: EMERSON BURROWSYulissa Muñoz Re p #: [id number] : 1955 F 62 From: Fransisco Aaron MD PCP: Mylene Craig NP Status: REG CLI Study: SCREENING MAMM (CAD), BILAT Date of Exam: 12/31/17 Exam# [id number] Ordering Dr: Mylene Craig MAMMOGR APHY - [...] Service support , CC: Mylene Craig NP Autism Teacher: Signed 30-Dec-2017 Surgery Visit Report Result: Comments: See Note; NOTES: [facility] [address] [place] [address] OFFICE VISIT Date of Service: 12/30/17 MR#: [id number] Acct: [id number] Name: LY MARIKAYARELIS L Rep #: [id number] : 1955 Provider: Chidi Mo MD Age/Sex: 62/F [place] [facility] Status: Signed Intake Vital Signs12/30/17 Height 5 ft 4 in 12/30/17 Weight: 177 lb Intak e Visit Reasons: cholelithiasis Packing Supervisor Required: No Is patient in pain?: No Allergies No Known Allergies Allergy (Verified 12/30/17 13:23) Medications coenzyme Q10 200 mg capsule 200 mg PO ON CE 10/15/17 [History Confirmed 12/30/17] atorvastatin 20 mg tablet 10 mg PO QDAY tab 12/30/17 [History Confirmed 12/30/17] cholecalciferol (vitamin D3) 10,000 unit capsule 10,000 unit PO QDAY 12/30/17 [ History Confirmed 12/30/17] [facility] Medical History Esophageal reflux (Chronic) Hyperlipidemia (Chronic) [...] ultrasound was obtained. This was completed at [facility] on 12/16/2017. This showed a normal [...] person, oriented to place, oriented to time [facility] Head: normocephalic, atraum atic Ears: external ears [...] 16-Dec-2017 Liver Result: Comments: See Note; NOTES: [facility] Imaging Services [address] [place] [address] Liver MR#: [id number] Acct: [id number] Name: YARELIS BURROWS Rep #: [id number] : F 62 From: Armen Slade MD PCP: Mylene Craig NP Status: REG CLI Study: Liver Date of Exam: 12/16/17 Exam# [id number] Ordering Dr: Mylene Craig STUDY: ABDOMINAL ULTRASOUND [...] Armen Slade MD at 14:34 EST Tel [phone], Service support , CC: Mylene Craig NP Autism Teacher: Signed 09-Dec-2017 OT General Evaluation Result: Comments: See Note; NOTES: [facility] Occupational Therapy [facility] [address] [place] [address] Fax REHABILITATION SERVICES INI TIAL EVALUATION MR#: [id number] Acct: [id number] Name: YARELIS BURROWS Rep #: [id number] : 1955 62 From: Marlene Sexton Referring Dr.: Chayo Ku DO Status: REG RCR [facility] Date: SELF PAY INSURANCE Patient's Visit Information [...] DIP: MF 0-68, L 0-61 - Strength Supply Assistant: R 39, L 52 Lateral Pinch: R 7, L 11 Tripod Pinch: R 6, L 8 Tip-to-Tip Pinch: R 6, L 4 - Edema Proximal Phalanx: MF R 7.5 cm, L 6.8 cm - Sensation Sensation Comments: WFL; deneis numbness and tingling. - Hand/Wrist Evaluation Total Score of Pain AND Functiona l Sections: 18 - Goals Goal:: Yarelis to increase R search engineer to that of L search engineer 2/3 trials 75% if the time to [...] to be FAXED BACK to us at [phone] for Medicare purposes. Please let me know if there are questions or concerns regarding this plan of care. Physici an Signature: Date: <Electronically signed by Marlene Sexton > 12/09/17 1203 CC: Mylene Craig INSULATION FOREMAN; Chayo Ku DO D KMB Signed For Medicare only, by signing this I certify the plan of care. Physicians Signature Date 02-Dec-2017 Orthopedic Visit Report Result: Comments: See Note; NOTES: [facility] Orthopaedics AND Sports Medicine [address] [place] [address] OFFICE VISIT Date of Service: 12/02/17 MR#: [id number] Acct: [id number] Name: YARELIS BURROWS Toni Rep #: [id number] : 1955 Provider: Chayo Ku DO Age/Sex: 62/F [place] [facility] Status: Signed Intake Intake Visit Reasons: Right [...] Visit Report Result: Comments: See Note; NOTES: [facility] Orthopaedics AND Sports Medicine [address] [place] [address] OFFICE VISIT Date of Service: 11/11/17 MR#: [id number] Acct: [id number] Name: YARELIS BURROWS Rep #: [id number] : 1955 Provider: Chayo Ku DO Age/Sex: 62/F [place] [facility] Status: Signed Intake Intake Visit Reasons: Trigger [...] mg PO ONCE 10/15/17 [History Confirmed 10/19/17] [facility] Medical History (Reviewe d 11/11/17 @ 08:03 [...] 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 Barney block was initiated and the right arm [...] with concerns This note was generated with Swoop dictation software. It ma y contain incorrect words, spelling, and punctuation that were not noted in checking the note before signing. 10/28/17 1219 <Electronically signed by Chayo Ku DO> Date ___ Chayo Ku DO CC: Mylene Craig NP; Chayo Ku DO Signed 21-Oct-2017 Dexa Bone Density Study (HP) Result: Comments: See Note; NOTES: [facility] Imaging Services [address] [place] [address] Dexa Bone Density Study (HP) MR#: [id number] Acct: [id number] Name: YARELIS BURROWS ep #: [id number] : 1955 F 62 From: Armen Slade MD PCP: Mylene Craig NP Status: REG CLI Study: Dexa Bone Density Study (HP) Date of Exam: 10/21/17 Exam# [id number] Ordering Dr: Mylene Craig STUDY: DUAL ENERGY [...] Armen Slade MD at 12:13 EST Tel [phone], Service support , CC: Mylene Craig NP Autism Teacher: Signed 20-Oct-2017 Discharge Instruction Result: Comments: See Note; NOTES: [facility] Medical Records Department [address] [place] [address] Instructions for Home/Discharge Instructions 10/20/17 0843 MR#: [id number] Acct: [id number] Name: YARELIS BURROWS Rep #: [id number] : 1955 62 From: Chayo Ku DO PCP: Mylene Craig NP Status: REG [facility] Discharge Diet: No Restrictions - keep dressing [...] Follow Up With: Chayo Ku DO - [phone] 10/20/17 0844 <Electronically signed by Chayo Ku DO> Date __ Chayo Ku DO CC: Mylene Craig INSULATION FOREMAN 19-Oct-2017 Orthopedic Visit Report Result: Comments: See Note; NOTES: [facility] [address] [place] [address] OFFICE VISIT Date of Service: 10/15/17 MR#: [id number] Acct: [id number] Name: YARELIS BURROWS Rep #: [id number] : 1955 Provider: Chayo Ku DO Age/Sex: 62/F [place] [facility] Status: Signed Intake Vital Signs10/15/17 Height 5 [...] mg PO ONCE 10/15/17 [History Confirmed 10/19/17] [facility] Medical History Esophageal reflux (Chronic) Hyperlipidemia (Chronic [...] (CAD), BILAT Result: Comments: See Note; NOTES: [facility] Imaging Services [address] [place] [address] Verdana 4d SCREENING MAMM (CAD), BILAT MR#: [id number] Acct: [id number] Name: ANDREW BURROWS Rep #: [id number] : 1955 F 61 From: Armen Slade MD PCP: Mylene Craig Status: REG CLI Study: SCREENING MAMM (CAD), BILAT Date of Exam: 10/29/16 Exam# [id number] Ordering Dr: Manjit Musa MAMMOGRAPHY - BILATERAL [...] delay biopsy of a clinically suspicious abnormality. [id number] Electronically Signed: Armen Slade MD at 8:12 EST Tel [phone], Service support [phone], CC: Mylene Musa Autism Teacher: Signed 17-Sep-2016 Finger(s) Min 2 Views Result: Comments: See Note; NOTES: [facility] Imaging Services [address] [place] [address] Verreagan 4d Finger(s) Min 2 Views MR#: [id number] Acct: [id number] Name: YARELIS BURROWS Rep #: [id number] : 1955 F 61 From: Donal Austin MD PCP: Reagan Sharp MD Status: REG CLI Study: Finger(s) Min 2 Views Date of Exam: 09/17/16 Exam# [id number] Ordering Dr: Chayo Ku DO STUDY: X-RAY [...] MD at 11:37 EST , Service support [phone], CC: Chayo Ku DO; Reagan Sharp MD Autism Teacher: Signed 17-Sep-2016 Hand Min 3 Views Result: Comments: See Note; NOTES: [facility] Imaging Services [address] [place] [address] Verda 4d Hand Min 3 Views MR#: [id number] Acct: [id number] Name: YARELIS BURROWS Amber p #: [id number] : 1955 F 61 From: Donal Austin MD PCP: Reagan Sharp MD Status: REG CLI Study: Hand Min 3 Views Date of Exam: 09/17/16 Exam# [id number] Ordering Dr: Chayo Ku DO STUDY: X- [...] MD at 11:36 EST , Service support [phone], CC: Chayo Ku DO; Reagan Sharp MD Autism Teacher: Signed 26-Nov-2015 Abdomen/Pelvis without Cont Result: Comments: See Note; NOTES: [facility] Imaging Services [address] [place] [address] Verdana 4d Abdomen/Pelvis without Cont MR#: [id number] Acct: [id number] Name: YARELIS BURROWS Rep #: [id number] : 1955 F 60 From: Armen Slade MD PCP: Reagan Sharp MD Status: REG CLI Study: Abdomen/Pelvis without Cont Date of Exam: 11/26/15 Exam# [id number]: Jennifer Spencer DO STUDY: [...] Armen Slade MD at 9:10 EST Tel [phone], Service support [phone], CC: Reagan Sharp MD; Jennifer Spencer DO Autism Teacher: Signed 15-Oct-2015 Bilat Scrn Digital AND CAD Result: Comments: See Note; NOTES: [facility] Imaging Services [address] [place] [address] Verdana 4d Bilat Scrn Digital AND CAD MR#: [id number] Acct: [id number] Name: YARELIS BURROWS Rep #: [id number] : 1955 F 60 From: Armen Slade MD PCP: Reagan Sharp MD Status: REG CLI Study: Bilat Scrn Digital AND CAD Date of Exam: 10/15/15 Exam# [id number] Ordering Dr: Reagan Sharp MD MAMMOGRAPHY - [...] biopsy of a clinically s uspicious abnormality. [id number] Electronically Signed: Armen Slade MD at 7:46 EST Tel [phone], Service support [phone], CC: Reagan Sharp MD Autism Teacher: Signed 15-Oct-2015 Dexa Bone Density Study (HP) Result: Comments: See Note; NOTES: [facility] Imaging Services [address] [place] [address] Verdana 4d Dexa Bone Density Study (HP) MR#: [id number] Acct: [id number] Name : YARELIS BURROWS Rep #: [id number] : 1955 F 60 From: Armen Slade MD PCP: Reagan Sharp MD Status: REG CLI Study: Dexa Bone Density Study (HP) Date of Exam: 10/15/15 Exam# [id number]: Reagan Sharp MD STUDY: [...] Armen Slade MD at 15:58 EST Tel [phone], Service support [phone], CC: Reagan Sharp MD Autism Teacher: Signed 20-May-2015 Gallium ScanWB Tumor/SingleDay Result: Comments: See Note; NOTES: [facility] Imaging Services [address] [place] [address] Nuclear Medicine Report MR#: [id number] Acct: [id number] Name: YARELIS BURROWS Rep #: [id number] : 1955 F 59 From: Karlos Landers DO PCP: Reagan Sharp MD Status: REG CLI Study: Gallium ScanWB Tumor/SingleDay Date of Exam: 05/20/15 Exam# [id number] Ordering Dr: Reagan Sharp MD CLINICAL: 59-year-old [...] Karlos Landers DO at 21:27 EDT Tel [phone], Service support [phone], CC: Reagan Sharp MD Autism Teacher: Signed 08-Apr-2015 Echocardiogram Complete Result: Comments: See Note; NOTES: [facility] Cardiovascular Services [address] [place] [address] Echo Complete 04/08/15 1408 MR#: [id number] Acct: [id number] Name: YARELIS BURROWS Rep #: [id number] : 1955 59 From: Anthony Ojeda MD [...] Dictated: 04/08/15 1408 Date Transcribed: 04/08/15 1543 Autism Teacher: Signed 03-Apr-2015 Bone Scan Whole Body Result: Comments: See Note; NOTES: [facility] Imaging Services [address] [place] [address] Nuclear Medicine Report MR#: [id number] Acct: [id number] Name: YARELIS BURROWS Rep #: [id number] : 1955 F 59 From: Karlos Landers DO PCP: Reagan Sharp MD Status: REG CLI Study: Bone Scan Whole Body Date of Exam: 04/03/15 Exam# [id number] Ordering Dr: Reagan Sharp MD CLINICAL: 59-year-old [...] Karlos Landers DO at 8:10 EDT Tel [phone], Service support [phone], CC: Reagan Sharp MD Autism Teacher: Signed 26-Sep-2014 Bilat Scrn Digital AND CAD Result: Comments: See Note; NOTES: [facility] Imaging Services [address] [place] [address] Breast Imaging Report MR#: [id number] Acct: [id number] Name: YARELIS BURROWS p #: [id number] : 1955 F 59 From: Armen Slade MD PCP: Reagan Sharp MD Status: REG CLI Study: Bilat Scrn Digital AND CAD Date of Exam: 09/26/14 Exam# [id number] Ordering Dr: Luis Sharp MD MAMMOGRAPHY - [...] Armen Slade MD at 7:28 EST Tel [phone], Service support [phone], CC: Reagan Sharp MD Autism Teacher: Signed 05-Apr-2014 Kidney and Bladder Result: Comments: See Note; NOTES: [facility] Imaging Services [address] [place] [address] Ultrasound Report MR#: [id number] Acct: [id number] Name: YARELIS BURROWS Rep #: [id number] : 1955 F 58 From: Justyn Neville PCP: Reagan Sharp MD Status: REG CLI Study: Kidney and Bladder Date of Exam: 04/05/14 Exam# [id number] Ordering Dr: Reagan Sharp MD STUDY: R [...] at 2:00 EDT Tel , Service support [phone], CC: Reagan Sharp MD Autism Teacher: Signed 21-Mar-2014 Abdomen Single View Result: Comments: See Note; NOTES: [facility] Imaging Services [address] [place] [address] Radiology Report MR#: [id number] Acct: [id number] Name: YARELIS BURROWS Rep #: [id number] : 1955 F 58 From: Armen Slade MD PCP: Status: REG CLI Study: Abdomen Single View Date of Exam: 03/21/14 Exam# [id number] Ordering Dr: Mylene Craig STUDY: X-RAY - [...] Armen Slade MD at 12:51 EDT Tel [phone], Service support [phone], RAD/Abdomen Single View IMPRESSION: Stable calcifications overlying both kidneys. Cholelithiasis. Electronically Signed: Armen Slade MD at 12:51 EDT Tel [phone], Service support [phone], CC: Mylene Craig Autism Teacher: Signed 09-Oct-2013 PT Letter Result: Comments: See Note; NOTES: [address] [place] [address] Fax Reagan Sharp MD [address] , [address] [place] [address] Sharp: Yarelis Burrows, date of , 1955, was seen for a massotherapy evaluation on November 02, 2012, with a diagnosis of tension headach es. This patient was treated with 6 sessions of massage therapy, which consisted of cdpekvjp-ng-cxkx tissue full body massage. Myofacial release and muscle stripping were incorporated into the mas annamarie as well as the heat pack to loosen muscles. Due to time constraints with insurance, at this time, I would discharge this patient from our care at [facility] facility . Sincerely, Libby Marie LMT T: NTS JOB: [id number] <Electronically signed by Libby Marie > 10/09/13 1704 CC: -Aug-2013 Bilat Scrn Digital & CAD Result: Comments: See Note; NOTES: [facility] Imaging Services [address] [place] [address] Breast Imaging Report MR#: [id number] Acct: [id number] Name: YARELIS BURROWS p #: [id number] : 1955 F 58 From: Armen Slade MD PCP: Status: REG CLI Exam# [id number] Ordering Dr: Reagan Sharp MD MAMMOGRAPHY - [...] 30, 2013 at 7 :48:44 AM EST [phone] Electronically Signed GP/GP If you are the referring physician and would like to consult with the radiologist who provided this interpretation, please contact Armen Slade M.D. at [phone]. If this radiologist is unavailable, you will be directed to another radiologist to assist. If you are a patient with a question regarding this report, please contact your referring physician directly. Professional Interpretation Provided By: [employer], Phone , These documents contain legally protected [...] of these documents. CC: Reagan Sharp MD Autism Teacher: Signed 29-Aug-2013 Dexa Bone Density Study (HP) Result: Comments: See Note; NOTES: [facility] Imaging Services [address] [place] [address] Bone Density Report MR#: [id number] Acct: [id number] Name: YARELIS BURROWS Rep #: [id number] : 1955 F 58 From: Armen Slade MD PCP: Status: REG CLI Study: Dexa Bone Density Study (HP) Date of Exam: 08/29/13 Exam# [id number] Ordering Dr: Reagan Sharp MD STUDY : [...] August 30, 2013 at 12:10:19 PM EST [phone] Electronically Signed GP/GP If you are the referring physician and would like to consult with the radiologist who provided this interpretation, please contact Armen Slade M.D. at [phone]. If this radiologist is unavailable, you will be directed to another ra diologist to assist. If you are a patient with a question regarding this report, please contact your referring physician directly. Professional Interpretation Provided By: [employer], Phone , These documents contain legally protected [...] of these documents. CC: Reagan Sharp MD Autism Teacher: Signed Family History Unknown Family Member Name [...] Active Current Work/Study Status Comments: Full-time, [employer] Status: Active Exercise History Comments: Light [...] kg/m2 Body Surface Area Calculated 1.85 m2 27-Tcy-300422:03 Pulse 76 /min Comments: Pattern: Regular Respiration [...] 0.00 cm Results Date Description Value Details 07-Ovi-724558:15 Basic Metabolic Profile (BMP) Comments: [facility] [address]oh[address] [place], [address] GAP 5 (Normal) Range: 5-15 CO2 31.0 [...] A.D.A. criteria.Please note revised GLUCOSE reference range oqwthzxbk58/02/2018. 94-Ypo-838176:15 CBC W/Diff, Automated Comments: [facility] [address] [place], [place], [address] Absolute Lymph 1.37 {X10_3/ul} (Normal) Range: 0.83-4.51 [...] 4.2-5.4 WBC 7.4 K/mm3 (Normal) Range: 4.4-11.0 83-Fpy-408542:15 Troponin-I Comments: [facility] [address] [place], [place], [id number] TROPONIN-I < 0.015 ng/mL (Normal) Comments: TROPONIN-I EXPECTED VALUES <0.045 Negative 0.045 - 0.590 Consistent with Cardiac Damage > OR = 0.600 Critical Value Not every elevated troponin is indicative of CT. T hesevalues should be used with clinical judgement in examiningthe patient's clinical picture for diagnosis. To establisha diagnosis of CT versus myocardial injury, there must be ademonstrated rise and/ or fall in the troponin values, inaddition to ischemic symptoms, EKG changes, new regionalwall motion abnormality, and/or angiographical evidence. PLEASE NOTE: REFERENCE RANGES EDITED 02/21/1804-Aug-201829-Lmt-894380:29 D-Dimer Quantitative (DVT/PE) Comments: [facility] [address]wmju[address] [place], [place], [address] D-DIMER QUANT 0.27 {FEU/ug/m} (Normal) Range: 0.27-0.49 Comments: NORMAL D-Dimer level (<0.50) indicates no DVT or PE. 15-Apr-20189:08 CBC, Platelets & Auto Diff Comments: PATIENT WAS FASTINGPERFORMED BY: LabCoUniversity HospitalOzjnrr3557 [facility] [id number] (40201) Immature Grans (Abs) 0.0 {x10E3/uL} (Normal) Range: [...] {x10E3/uL} (Normal) Range: 3.4-10.8 :08 Lipid Panel (96239) Comments: PATIENT WAS FASTINGPERFORMED BY: [employer] Vbgqsu0496 [facility] [id number] LDL/HDL Ratio 2.9 {ratio} (Normal) Range: 0.0-3.2 [...] Panel, Comprehensive Comments: PATIENT WAS FASTINGPERFORMED BY: [employer] Vjeekg1790 [facility] [id number] (66276) ALT (SGPT) 27 [iU]/L (Normal) Range: 0-32 [...] 8-27 Glucose 91 mg/dL (Normal) Range: 65-99 05-Ryx-99511:0 GALLBLADDER See Note (Normal) Comments: [facility] [address] [place], [address] 0 Comments: Patient: YARELIS BURROWS : 1955 (62/F) Acct Num: [id number] Phys: Chepe PARDO,Chidi Unit Num: [id number] Loc: [facility] [place] Specimen: [id number] Received: 01/25/181515 Spec Ty pe: GALLBLADDE TISSUES [...] measures up to 0.2 cm in thickness. Facility Service Associate sections from the gallbladder and the cystic duct are submitted in one cassette. / PITER:trevor 01/25/18 TC:3 CPT: 90340 HEADER OPERATION: Laparoscopic cholecystectomy PRE-OP DIAGNOSIS: Calculus of gallbladder with chronic cholecystitis without obstruction TISSUE SUBMITTED: Adriel avalos MICROSCOPIC DESCRIPTION Slides are reviewed. MICROSCOPIC DIAGNOSIS Gallbladder: Chronic cholecystitis and cholelithiasis. PITER:trevor 01/26/18 Signed Osmany Velarde 01/26/18 <signature on file> 07-Ptf-72625:18 CBC-Complete Blood Cnt No Diff Comments: [facility] [address] [place], [place], [address] MPV 11.2 fL (Normal) Range: 6.2-12.0 PLT [...] 4.2-5.4 WBC 3.3 K/mm3 (Abnormal) Range: 4.4-11.0 11-Gjc-85291:11 HEPATIC FUNCTION PANEL Comments: PATIENT NOT FASTINGPERFORMED BY: [facility] Wmskyl0064 [facility] [id number] (00285) ALT (SGPT) 20 [iU]/L (Normal) Range: 0-32 AST (SGOT) 17 [iU]/L (Normal) Range: 0-40 Alkaline Phosphatase 78 [iU]/L (Normal) Range: 39-117 Bilirubin, Direct 0.17 mg/dL (Normal) Range: 0.00-0.40 Bilirubin, Total 0.9 mg/dL (Normal) Range: 0.0-1.2 Albumin 4.4 g/dL (Normal) Range: 3.6-4.8 Protein, Total 6.8 g/dL (Normal) Range: 6.0-8.5 :11 PARATHORMONE (08913) Comments: PATIENT NOT FASTINGPERFORMED BY: [employer] Cgvrgt4964 [address] MokuOn License [facility] [place] [id number] PTH, Intact 45 pg/mL (Normal) Range: 15-65 :11 CALCIUM SERUM (45829) Comments: PATIENT NOT FASTINGPERFORMED BY: [employer] [employer] [place] [id number] Calcium 9.0 mg/dL (Normal) Range: 8.7-10.3 :35 HEPATITIS PANEL (32477) Comments: PATIENT NOT FASTINGPERFORMED BY: [employer] [facility] [id number] Hep C Virus Ab <0.1 {s/co_ratio} (Normal) Range: 0.0-0.9 Comments: Negative: < 0.8 Indeterminate: 0.8 - 0.9 Positive: > 0.9 . The CDC recommends that a positive HCV antibody result be followed up with a HCV Nucleic Acid Amplification test (044537). Hep B Core Ab, IgM Negative (Normal) HBsAg Screen Negative (Normal) Hep A Ab, IgM Negative (Normal) :35 JKSCT-GGZCNOBKFGM-EXRDS (64788) Comments: PATIENT NOT FASTINGPERFORMED BY: [employer] Jotmzh0025 [address] [facility] [place] [id number] AFP, Serum, Tumor Marker 8.0 ng/mL (Normal) Range: 0.0-8.3 Comments: Alexandra ECLIA methodology :49 Urinalysis, Office (56303) URINE UROBILINGN JEANNINE TIMED 2 mg/dL (Normal) [...] With Differential/Platelet Comments: PATIENT WAS FASTINGPERFORMED BY: [facility]Henry [facility]6370 [facility] [id number] Immature Grans (Abs) 0.0 {x10E3/uL} (Normal) Range: [...] Panel (14) Comments: PATIENT WAS FASTINGPERFORMED BY: LabCoUniversity HospitalZcrwum1279 [facility] [id number] ALT (SGPT) 91 [iU]/L (Abnormal) Range: 0-32 [...] With LDL/HDL Comments: PATIENT WAS FASTINGPERFORMED BY: LabCoUniversity HospitalXjutwz7043 [facility] [id number] Ratio LDL/HDL Ratio 1.6 (Normal) Range: 0.0-3.2 [...] Microscopic Examination Comments: PATIENT WAS FASTINGPERFORMED BY: Property MooseUniversity HospitalAmtdgy6155 [facility] [id number] Bacteria Few (Normal) Mucus Threads Present (Normal) Epithelial Cells (non 0-10 {/hpf} Range: 0 - 10 renal) (Normal) RBC 0-2 {/hpf} (Normal) Range: 0 - 2 WBC 11-30 {/hpf} Range: 0 - 5 (Abnormal) TSH 2.840 {uIU/mL} Comments: PATIENT WAS FASTINGPERFORMED BY: [employer] Vlujsu5322 [facility] [id number] :15 (Normal) Range: 0.450-4.500 :15 Urinalysis, Complete Comments: PATIENT WAS FASTINGPERFORMED BY: [employer] Wabuuo6209 [facility] [id number] Microscopic Examination See below: (Normal) Comments: Microscopic was indicated and was performed. Nitrite, Urine Positive (Abnormal) Urobilinogen,Semi-Qn 0.2 mg/dL (Normal) Range: 0.2-1.0 Bilirubin Negative (Normal) Occult Blood Negative (Normal) Ketones Negative (Normal) Glucose Negative (Normal) Protein Negative (Normal) WBC Esterase 2+ (Abnormal) Appearance Clear (Normal) Urine-Color Yellow (Normal) pH 7.5 (Normal) Range: 5.0-7.5 Specific [place] 1.015 (Normal) Range: 1.005-1.030 :06 URINE YAIR CULTURE-IDENTIFICATN Comments: PATIENT NOT FASTINGPERFORMED BY: [facility] SurgicalHenry [facility] Hospital6370 [facility] [id number] Information: SRC:CARMEN (82121) Antimicrobial MIHEAD (Normal) Comments: S = Susceptible; [...] mL (Abnormal) Urine Final report Culture,Comprehensive (Abnormal) 64-Cwz-305713:41 Urinalysis, Office (58384) UA - LEUKOCYTE ESTERASE Small (Normal) UA - NITRITE Negative (Normal) URINE UROBILINGN JEANNINE TIMED 2 mg/dL (Normal) UA - PROTEIN Negative mg/dL (Normal) UA - PH 7 (Normal) UA - BLOOD Negative (Normal) UA - SPECIFIC GRAVITY 1.020 (Normal) UA - KETONES Negative mg/dL (Normal) UA - BILIRUBIN Negative (Normal) UA - GLUCOSE Negative (Normal) :07 MAGNESIUM (42489) Comments: PATIENT NOT FASTINGPERFORMED BY: [facility] Bezftr7110 [facility] [id number] Magnesium, Serum 2.1 mg/dL (Normal) Range: 1.6-2.3 :07 POTASSIUM SERUM (81382) Comments: PATIENT NOT FASTINGPERFORMED BY: [facility] Lygkbc2558 [facility] [id number]; OV today Potassium, Serum 3.7 mmol/L (Normal) Range: 3.5-5.2 :32 Culture, Urine Comments: [facility] [address] [place], [place], [id number] CUUR See Note (Normal) Comments: Urine CultureBelow infection level. ORGANISM 1: Gram negative rodColony Count <1000 :30 CBC W/Diff, Automated Comments: [facility] [address] [place], [place], [address] Absolute Lymph 1.01 {X10_3/ul} (Normal) Range: 0.83-4.51 [...] 4.2-5.4 WBC 4.0 K/mm3 (Abnormal) Range: 4.4-11.0 27-Tdp-60499:30 Comprehensive Metabolic Profil Comments: [facility] [address] [place], [address] GAP 9 (Normal) Range: 5-15 CO2 29.0 [...] 7-18 GLU 99 mg/dL (Normal) Range: 70-110 66-Bgh-28415:30 Lipid Profile Comments: [facility] Kawsfxnypi[address] [facility] [place], [place], [address] VLDL 15 mg/dL (Normal) Range: 5-40 LDL [...] High Risk :30 Vitamin D,25 Hydroxy Comments: [facility] [address] [place], [place], [address] Vitamin D 25-OH 40.8 ng/mL (Normal) Comments: Vitamin D 25(OH) Status Range Deficiency <20 ng/mL (50nmol/L) Insuffciency 20 - 30 ng/mL (50 - 75 nmol/L) Sufficiency 30 - 100 ng/mL (75 - 250 nmol/L) Toxicity >100 ng/mL (>250 nmol/L) 7-Tpj-427195:00 Culture, Urine Comments: [facility] [address] [place], [address] CUUR See Note (Normal) Comments: Urine CultureORGANISM [...] $ <=20 S(NF) indicates non-formulary drug at [facility]. Approval by Infectious Disease Specialist required before non-formulary drugs may be ordered and/or dispensed. 5-Gzu-974178:59 CALCIFEDIOL (03700) Comments: today; PATIENT NOT FASTINGPERFORMED BY: [facility]6370 [facility] [id number] Vitamin D, 25-Hydroxy 59.8 ng/mL (Normal) Range: 30.0-100.0 Comments: Vitamin D deficiency has been defined by the Orange ofMedicine and an Endocrine Society practice guideline as alevel of serum 25-OH vitamin D less than 20 ng/mL (1,2).The Endocrine Society went on to further define vitamin Dinsufficiency as a level between 21 and 29 ng/mL (2).1. IOM (Orange of Medicine). 2010. Dietary reference intakes for calcium and D. [place]: The National Academies Press.2. Jaz MF, Chapo HOPE, Papito ROBERT, et al. Evaluation, treatment, and prevention of vitamin D deficiency: an Endocrine Society clinical practice guideline. JCEM. 2010; 96(7):1911-30. 6-Ble-082726:59 URINE YAIR CULTURE-IDENTIFICATN Comments: PATIENT NOT FASTINGPERFORMED BY: CB [facility] Rwsmgs9974 Ar[address] RoadDublin [place] [id number] Information: SRC: (23571) Result 1 ECV (Abnormal) Comments: Escherichia coli, [...] report Culture,Comprehensi (Abnormal) ve 14-May-20179:34 Urinalysis, Office (52945) UA - LEUKOCYTE ESTERASE Moderate (Normal) UA - NITRITE Negative (Normal) URINE UROBILINGN JEANNINE TIMED Normal mg/dL (Normal) UA - PROTEIN Negative mg/dL (Normal) UA - PH 7.5 (Normal) UA - BLOOD Non Hemolyzed Trace (Normal) UA - SPECIFIC GRAVITY 1.010 (Normal) UA - KETONES Negative mg/dL (Normal) UA - BILIRUBIN Negative (Normal) UA - GLUCOSE Negative (Normal) 18-Bvu-000658:31 URINE YAIR CULTURE-JEANNINE COL Comments: PATIENT NOT FASTINGPERFORMED BY: [facility] Gpfdtv5087 Ar[address] Roadblin [place] [id number] Information: SRC:CARMEN COUNT (61523) Antimicrobial MIHEAD (Normal) Comments: S = Susceptible; [...] mL (Abnormal) Urine Final report Culture,Comprehensive (Abnormal) 31-Lna-39998:59 Urinalysis, Office (69948) UA - LEUKOCYTE ESTERASE Large (Normal) UA - NITRITE Negative (Normal) URINE UROBILINGN JEANNINE TIMED Normal mg/dL (Normal) UA - PROTEIN Negative mg/dL (Normal) UA - PH 6 (Abnormal) UA - BLOOD Hemolyzed Large (Normal) UA - SPECIFIC GRAVITY 1.010 (Normal) UA - KETONES Negative mg/dL (Normal) UA - BILIRUBIN Negative (Normal) UA - GLUCOSE Negative (Normal) :12 CBC WITH MANUAL DIFF (38622) Comments: PATIENT NOT FASTINGPERFORMED BY: [facility] Mccmzu9789 [facility] [id number] Immature Grans (Abs) 0.0 {x10E3/uL} (Normal) Range: [...] CREATININE RATIO Comments: PATIENT WAS FASTINGPERFORMED BY: [facility] [id number] (45148) AND (60515) Microalb/Creat Ratio 11.2 {mg/g_creat} (Normal) Range: 0.0-30.0 Microalbumin, Urine 13.2 ug/mL (Normal) Creatinine, Urine 117.4 mg/dL (Normal) :28 CALCIFEDIOL (20670) Comments: PATIENT WAS FASTINGPERFORMED BY: [facility] [id number] Vitamin D, 25-Hydroxy 68.0 ng/mL (Normal) Range: 30.0-100.0 Comments: Vitamin D deficiency has been defined by the Orange ofMedicine and an Endocrine Society practice guideline as alevel of serum 25-OH vitamin D less than 20 ng/mL (1,2).The Endocrine Society went on to further define vitamin Dinsufficiency as a level between 21 and 29 ng/mL (2).1. IOM (Orange of Medicine). 2010. Dietary reference intakes for calcium and D. [place]: The National Academies Press.2. Jaz MF, Chapo [place], Debby-Manjit ROBERT, et al. Evaluation, treatment, and prevention of vitamin D deficiency: an Endocrine Society clinical practice guideline. JCEM. 2010; 96(7):1911-30. :28 TSH (THYROID STIMULATING Comments: PATIENT WAS FASTINGPERFORMED BY: [facility] [id number] HORMONE) (79793) TSH 3.970 {uIU/mL} (Normal) Range: 0.450-4.500 :28 LIPID PANEL (93286) Comments: PATIENT WAS FASTINGPERFORMED BY: Property MooseUniversity HospitalMzmhjy1929 [facility] [id number] LDL/HDL Ratio 1.4 {ratio_units} (Normal) Range: 0.0-3.2 [...] PANEL, COMPREHENSIVE Comments: PATIENT WAS FASTINGPERFORMED BY: [employer] Luwaly0036 [facility] [id number] (86092) ALT (SGPT) 25 [iU]/L (Normal) Range: 0-32 [...] Glucose, Serum 89 mg/dL (Normal) Range: 65-99 21-Heh-79954:28 CBC, PLATELETS & AUT DIFF Comments: PATIENT WAS FASTINGPERFORMED BY: [facility] Qydvqc6449 [facility] [id number] (14535) Immature Grans (Abs) 0.0 {x10E3/uL} (Normal) Range: [...] CREATININE RATIO Comments: PATIENT WAS FASTINGPERFORMED BY: [facility]Henry [facility]6370 [facility] [id number] (88705) AND (65340) Microalb/Creat Ratio 15.5 {mg/g_creat} (Normal) Range: 0.0-30.0 Microalbumin, Urine 8.6 ug/mL (Normal) Creatinine, Urine 55.6 mg/dL (Normal) :27 CALCIFEDIOL (06276) Comments: PATIENT WAS FASTINGPERFORMED BY: [employer] Mduemz4263 [facility] [id number] Vitamin D, 25-Hydroxy 29.7 ng/mL (Abnormal) Range: 30.0-100.0 Comments: Vitamin D deficiency has been defined by the Orange ofChillicothe Hospitalcine and an Endocrine Society practice guideline as alevel of serum 25-OH vitamin D less than 20 ng/mL (1,2).The Endocrine Society went on to further define vitamin Dinsufficiency as a level between 21 and 29 ng/mL (2).1. IOM (Orange of Medicine). 2010. Dietary reference intakes for calcium and D. [place]: The National Academies Press.2. Jaz MF, Chapo HOPE, Papito ROBERT, et al. Evaluation, treatment, and prevention of vitamin D deficiency: an Endocrine Society clinical practice guideline. JCEM. 2010; 96(7):1911-30. :27 LIPID PANEL (00634) Comments: PATIENT WAS FASTINGPERFORMED BY: [facility]6370 [facility] [id number] LDL/HDL Ratio 1.5 {ratio_units} (Normal) Range: 0.0-3.2 [...] Cholesterol, Total 176 mg/dL (Normal) Range: 100-199 07-Ksz-296012:27 METABOLIC PANEL, COMPREHENSIVE Comments: PATIENT WAS FASTINGPERFORMED BY: [facility] [id number] (27571) ALT (SGPT) 22 [iU]/L (Normal) Range: 0-32 [...] Glucose, Serum 89 mg/dL (Normal) Range: 65-99 22-Ltx-927405:27 CBC, PLATELETS & AUT DIFF Comments: PATIENT WAS FASTINGPERFORMED BY: [facility] [place] [id number] Information: [id number] (26782) Immature Grans (Abs) 0.0 {x10E3/uL} Range: 0.0-0.1 [...] CYTOSPIN ON FLUID See Note (Normal) Comments: [facility] [address] [place], [place], [address] 00 Comments: Patient: YARELIS BURROWS : 1955 (60/F) Acct Num: [id number] Phys: Jacky PARDO,Carmine Tompkins Unit Num: [id number] Loc: [facility] Specimen: [id number] Received: 04/21/16 - 1323 Spec Type: CYSPIN FL TISSUES TISSUES: COMMENT Differential diagnosis includes infection, calculi or low-grade urothelial neoplasm. CYTOLOGY GROSS Received is 60 ml of clear yello w fluid labeled with the patient's name and and designated per the requisition as urine. Submitted for cytology preparation. 04/21/16 TC:5 CPT: 60571 CYTOLOGY STUDY Slides are reviewed. The specimen [...] Signed Osmany Velarde 04/22/16 <signature on file> 51-Nub-273949:17 URINE YAIR CULTURE-JEANNINE COL Comments: PATIENT NOT FASTINGPERFORMED BY: [facility] Hqucgy7729 [facility] [id number] Information: SRC:[facility] [id number] COUNT (03732) Result 1 CNSNSS (Abnormal) Comments: Coagulase negative [...] S Urine Final report Culture,Comprehens (Abnormal) tracey 81-Wbc-515632:10 Urinalysis, Office (89877) UA - LEUKOCYTE ESTERASE Negative (Normal) UA - NITRITE Negative (Normal) URINE UROBILINGN JEANNINE TIMED Normal mg/dL (Normal) UA - PROTEIN Negative mg/dL (Normal) UA - PH 7 (Normal) UA - BLOOD Non Hemolyzed Moderate (Normal) UA - SPECIFIC GRAVITY 1.010 (Normal) UA - KETONES Negative mg/dL (Normal) UA - BILIRUBIN Negative (Normal) UA - GLUCOSE Negative (Normal) 5-Tgm-021034:54 URINE YAIR CULTURE-JEANNINE COL Comments: PATIENT NOT FASTINGPERFORMED BY: JUAN [facility] Uhexjk8098 [facility] [id number] Information: SRC:[facility] [id number] COUNT (23376) Antimicrobial MIHEAD (Normal) Comments: S = Susceptible; [...] mL (Abnormal) Urine Final report Culture,Comprehensive (Abnormal) 8-Vez-569989:41 Urinalysis, Office (46714) UA - LEUKOCYTE ESTERASE Moderate (Normal) UA [...] SHELBY 4374 4.8 ng/dL (Normal) Range: 0.0-30.0 61-Owo-571895:06 Magnesium Comments: [facility] [address] [place], [place], [address] MG 2.1 mg/dL (Normal) Range: 1.8-2.4 31-Vod-369455:06 Potassium Comments: [facility] Jmptwxheyp[address] [place] [place], [address] K 3.4 mmol/L (Abnormal) Range: 3.5-5.1 69-Xdy-024711:06 Renin, Plasma Comments: [facility] (refer to report [...] 2.80 Na= >150 0.39 - 1.31Performed at: [facility] [employer] [id number] Director: Nomi Villeda MD, Phone: [phone] 16-Kpz-093466:06 Thyroid Stim Hormone (TSH) Comments: [facility] [address] [place], [address] TSH 1.93 {uIU/mL} (Normal) Range: 0.358-3.74 10-Apr-20158:39 Potassium Comments: Test performed at:[facility] [address]izmu[address] [place] [address] K 3.6 mmol/L (Normal) Range: 3.5-5.1 39-Dix-551484:43 Aldosterone, Urine Comments: PATIENT NOT FASTINGPERFORMED BY: [facility] Ymnltx7546 [facility] [id number] BY: [address] [id number] Aldosterone,U, Timed 10.43 {ug/24_hr} (Normal) Range: 0.00-19.00 Comments: Adult Ranges Low Sodium Intake 20.00 - 80.00 Normal Sodium Intake 0.00 - 19.00 High Sodium Intake 0.00 - 12.00 Aldosterone U,Random 2.98 ug/L (Normal) 32-Yxo-410340:43 Cortisol, Urinary Free Comments: PATIENT NOT FASTINGPERFORMED BY: [employer] [id number] BY: [address] [id number] Cortisol,F,ug/24hr,U 42 {ug/24_hr} (Normal) Range: 0-50 Cortisol,F,ug/L,U 12 ug/L (Normal) 75-Ofh-993329:43 Potassium, 24 hr Urine Comments: PATIENT NOT FASTINGPERFORMED BY: [employer] [id number] BY: [address] [id number] Information: C: [id number] START 5@6AM FI MARNIE Potassium, Urine 119.4 {mmol/24_hr} Range: 25.0-125.0 (Normal) Potassium, Urine 34.1 mmol/L (Normal) Renin Activity, Plasma <0.15 {ng/mL/hr} Comments: PATIENT NOT FASTINGPERFORMED BY: [address] [id number] Information: [id number] :48 (Normal) Comments: Adult Normal Salt Intake: Upright 1.31 - 3.95 Supine 0.15 - 2. 33 . Salt Excretion (Na mEq/24 hr): Na= 0 - 30 8.82 - 23.86 Na= 30 - 75 4.09 - 7.73 Na= 75 - 150 1.44 - 2.80 Na= >150 0.39 - 1.31 :58 Aldosterone LCMS, Serum Comments: PATIENT NOT FASTINGPERFORMED BY: [address] [id number] BY: [address] [id number] Aldosterone 6.0 ng/dL (Normal) Range: 0.0-30.0 : Magnesium, Serum 2.1 mg/dL (Normal) Comments: PATIENT NOT FASTINGPERFORMED BY: LabCoUniversity HospitalAksbzf9591 [facility] [id number] BY: LabN[place] [address] [facility] [id number] Range: 1.6-2.6 : TSH 2.160 {uIU/mL} Comments: PATIENT NOT FASTINGPERFORMED BY: LabCoMorgan Ville 4015470 [facility] [id number] BY: LabCo[address] [id number] Inf ormation: [id number] 58 (Normal) Range: 0.450-4.500 5-Wbq-315165:00 Comprehensive Metabolic Profil Comments: Test performed at:[facility] [address] [place], [place] [address] GAP 6 (Normal) Range: 5-15 CO2 32.0 [...] 7-18 GLU 92 mg/dL (Normal) Range: 70-110 3-Zca-356297:00 Lipid Profile Comments: Test performed at:[facility] [address] [place], [place] [address] VLDL 14 mg/dL (Normal) Range: 5-40 LDL [...] 200-240 mg/dL Borderline >240 mg/dL High Risk 05-Bbd-07378:14 Urinalysis, Office (76713) UA - LEUKOCYTE ESTERASE Trace (Normal) UA - NITRITE Negative (Normal) URINE UROBILINGN JEANNINE TIMED Normal mg/dL (Normal) UA - PROTEIN Negative mg/dL (Normal) UA - PH 7.0 (Normal) UA - BLOOD Non Hemolyzed Trace (Normal) UA - SPECIFIC GRAVITY 1.020 (Normal) UA - KETONES Negative mg/dL (Normal) UA - BILIRUBIN Negative (Normal) UA - GLUCOSE Negative (Normal) 81-Pgt-09996:55 URINE YAIR CULTURE-JEANNINE COL Comments: PATIENT NOT FASTINGPERFORMED BY: [employer] [facility] Hxbpkl8610 [facility] [id number] Information: SRC: URETHRA COUNT (33402) Result 1 MUG (Normal) Comments: Mixed urogenital flora1,000 Colonies/mL Urine Culture,Comprehensive Final report (Normal) 21-Zos-056123:48 URINE YAIR CULTURE-JEANNINE COL Comments: PATIENT NOT FASTINGPERFORMED BY: [employer] Lffood3524 [facility] [id number] Information: SRC:[facility] [id number] COUNT (78779) Antimicrobial MIHEAD (Normal) Comments: S = Susceptible; [...] mL (Abnormal) Urine Final report Culture,Comprehensive (Abnormal) 01-Buy-180456:56 Urinalysis, Office (35512) UA - LEUKOCYTE ESTERASE Large (Normal) UA [...] COL Comments: PATIENT NOT FASTINGPERFORMED BY: [facility] Wqxwoz0356 [facility] [id number] Information: SRC:[facility] [id number] COUNT (68144) Result 1 ECV (Abnormal) Comments: Escherichia coli, [...] S Urine Final report Culture,Comprehensi (Abnormal) ve 1-Vix-028364:18 Urinalysis, Office (92627) UA - LEUKOCYTE ESTERASE Large (Normal) UA - NITRITE Negative (Normal) URINE UROBILINGN JEANNINE TIMED Normal mg/dL (Normal) UA - PROTEIN 100 mg/dL (Normal) UA - PH 7 (Normal) UA - BLOOD Hemolyzed Large (Normal) UA - SPECIFIC GRAVITY 1.025 (Normal) UA - KETONES Negative mg/dL (Normal) UA - BILIRUBIN Negative (Normal) UA - GLUCOSE Negative (Normal) 37-Nbm-101579:40 POTASSIUM SERUM (03030) Comments: today; PATIENT NOT FASTINGPERFORMED BY: [facility] Prqqag8124 [facility] [id number] Information: [id number],[id number] Potassium, Serum 3.9 mmol/L (Normal) Range: 3.5-5.2 3-Wsw-888220:10 Comprehensive Metabolic Profil Comments: Test performed at:[facility] [address] [place], [place] [id number] GAP 4 (Abnormal) Range: 5-15 CO2 31.0 [...] 70-110 :10 Lipid Profile Comments: Test performed at:[facility] [address] [place], [place] [address] VLDL 19 mg/dL (Normal) Range: 5-40 LDL [...] Borderline >240 mg/dL High Risk :15 Magnesium (36718) Comments: today; PATIENT NOT FASTINGPERFORMED BY: [email or web address].comUniversity HospitalCbxmiv9162 [facility] [id number] Magnesium, Serum 2.2 mg/dL (Normal) Range: 1.6-2.6 :15 Potassium Serum (99775) Comments: today; PATIENT NOT FASTINGPERFORMED BY: [employer] Kwgqym9871 [facility] [id number] Information: [id number] Potassium, Serum 3.8 mmol/L (Normal) Range: 3.5-5.2 :48 Urinalysis, Office (82651) UA - LEUKOCYTE ESTERASE Negative (Normal) UA [...] Comments: PATIENT NOT FASTINGPERFORMED BY: JUAN [facility] [id number] [place] [id number] Information: SRC:UR [id number]; will review at appt. today COUNT (47504) Result 1 MUG (Normal) Comments: Mixed urogenital flora1,000 Colonies/mL Urine Culture,Comprehensive Final report (Normal) 03-Kjy-96894:09 Urinalysis, Office (18191) UA - LEUKOCYTE ESTERASE Negative (Normal) UA [...] CHOL 169 mg/dL (Normal) Comments: <200 mg/dL Itxjhcdmc460-781 mg/dL Borderline>240 mg/dL High Risk :33 Lipid Panel (47854) Comments: PATIENT WAS FASTINGPERFORMED BY: [place] [id number] [facility] [id number] Information: [id number] LDL/HDL Ratio 1.6 {ratio_units} (Normal) Range: 0.0-3.2 LDL Cholesterol Calc 96 mg/dL (Normal) Range: 0-99 VLDL Cholesterol Damon 12 mg/dL (Normal) Range: 5-40 HDL Cholesterol 59 mg/dL (Normal) Comments: According to ATP-III Guidelines, HDL-C >59 mg/dL is considered anegative risk factor for CHD. Triglycerides 59 mg/dL (Normal) Range: 0-149 Cholesterol, Total 167 mg/dL (Normal) Range: 100-199 9-Cbq-097975:33 HEPATIC FUNCTION PANEL Comments: PATIENT WAS FASTINGPERFORMED BY: [place] [id number] [facility] [id number] (36386) ALT (SGPT) 36 [iU]/L (Abnormal) Range: 0-32 AST (SGOT) 29 [iU]/L (Normal) Range: 0-40 Alkaline Phosphatase, S 76 [iU]/L (Normal) Range: 39-117 Bilirubin, Direct 0.20 mg/dL (Normal) Range: 0.00-0.40 Bilirubin, Total 0.8 mg/dL (Normal) Range: 0.0-1.2 Albumin, Serum 4.1 g/dL (Normal) Range: 3.5-5.5 Protein, Total, Serum 6.6 g/dL (Normal) Range: 6.0-8.5 :27 METABOLIC PANEL, Comments: health screening labs; PATIENT WAS FASTINGPERFORMED BY: [place] [id number] [facility] [id number] Information: [id number] COMPREHENSIVE (79391) ALT (SGPT) 19 [iU]/L (Normal) Range: 0-32 [...] mg/dL (Normal) Range: 65-99 :27 LIPID PANEL (17874) Comments: PATIENT WAS FASTINGPERFORMED BY: LabCoUniversity HospitalWbxzqs0541 [facility] [id number] LDL/HDL Ratio 3.7 {ratio_units} (Abnormal) Range: 0.0-3.2 [...] Slade M.D.January 18, 2013 at 10:24:09 AM [id number] Signed GP/GP If you are the referring physician and would like to consult with theradiologist who provided this interpretation, please contact Albania Thomas at [phone]. If this radiologist is unavailable, youwill be directed to another radiologist t o assist. If you are a patient with a question regarding this report, pleasecontactyour referring physician directly. Professional Interpretation Provided By: [employer], Phone ,Fax These documents contain legally protected [...] 1027 Sign b y: Armen Slade MD 82-Apf-68716:08 Metabolic Panel, Comments: today; PATIENT NOT FASTINGPERFORMED BY: LabCoUniversity HospitalCqouiy5742 [facility] [id number] Information: [id number] Comprehensive (45375) ALT (SGPT) 29 [iU]/L (Normal) Range: 0-32 [...] mg/dL (Abnormal) Range: 65-99 :19 Urinalysis, Office (41194) UA - BILIRUBIN Negative (Normal) UA - [...] 200-240 mg/dL Borderline >240 mg/dL High Risk 1-Caj-539557:26 BILAT SCRN DIGITAL & CAD Radiology Report See Note (Normal) Comments: Exam Number: [id number] AMMOGRAPHY - BILATERAL SCREENING INDICATION:Routine annual screening [...] a Res ultCode to this exam. ADDENDUM: [id number] HPBI/MDS Reported By: DAVION BA M.D. 8-Jzm-258911:26 DEXA BONE DENSITY STUDY (HP) Radiology Report See Note (Normal) Comments: Exam Number: [id number] LINICAL:This is a 55-year-old female patient for postmenopausal screening. EXAMINATION:DUAL ENERGY X-RAY ABSORPTIOMETRY / DEXA. TECHNIQUE:Bone Density Measurements (BMD) of lumbar spine and bilateral hips were obtained using a [employer] scanner.. COMPARISON:Comparison is made with prior examination [...] Osteoporosis Foundation http://www.nof.org Reported By: ARMEN SLADE 6-Nvh-154648:40 CBC MCH 32.1 pg (Abnormal) Range: 27.0-32.0 [...] :40 PTT 29.1 s (Normal) Range: 25.2-36.2 41-Wca-144967:10 Urinalysis, Office (50158) UA - LEUKOCYTE ESTERASE Trace (Normal) UA - NITRITE Negative (Normal) URINE UROBILINGN JEANNINE TIMED 2 mg/dL (Normal) UA - PROTEIN Negative mg/dL (Normal) UA - PH 6.5 (Normal) UA - BLOOD Negative (Normal) UA - SPECIFIC GRAVITY 1.005 (Normal) UA - KETONES Negative mg/dL (Normal) UA - BILIRUBIN Negative (Normal) UA - GLUCOSE Negative (Normal) 58-Ayx-624895:04 URINE YAIR CULTURE-JEANNINE COL Comments: PATIENT NOT FASTINGPERFORMED BY: [facility] Gzqmsi5027 [facility] [id number] Information: SRC: URINE COUNT (50641) Antimicrobial MIHEAD (Normal) Comments: S = Susceptible; [...] mL (Normal) Urine Final report (Normal) Culture,Comprehensive 72-Hxi-078425:03 Urinalysis, Office (05539) UA - LEUKOCYTE ESTERASE Small (Normal) UA - NITRITE Negative (Normal) URINE UROBILINGN JEANNINE TIMED Normal mg/dL (Normal) UA - PROTEIN Negative mg/dL (Normal) UA - PH 7.0 (Normal) UA - BLOOD Non Hemolyzed Moderate (Normal) Comments: Large UA - SPECIFIC GRAVITY 1.010 (Normal) UA - KETONES Negative mg/dL (Normal) UA - BILIRUBIN Negative (Normal) UA - GLUCOSE Negative (Normal) 6-Xlp-121034:19 Urinalysis, Office (29056) UA - LEUKOCYTE ESTERASE Negative (Normal) UA - NITRITE Negative (Normal) URINE UROBILINGN JEANNINE TIMED 2 mg/dL (Normal) UA - PROTEIN Negative mg/dL (Normal) UA - PH 7.0 (Normal) UA - BLOOD Negative (Normal) UA - SPECIFIC GRAVITY 1.010 (Normal) UA - KETONES Negative mg/dL (Normal) UA - BILIRUBIN Negative (Normal) UA - GLUCOSE Negative (Normal) 31-Vax-779411:04 Urinalysis, Office (78378) UA - BILIRUBIN Negative (Normal) UA - [...] Indication: Chest pain Chest pain : 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 Indication: Chest pain Chest pain : [...] : Follow up in 2 days with [facility] Indication: Nausea alone Wheezing : [...] not specified Planned Observations Metabolic Panel, Comprehensive (70486)Indication: Hypercholesteremia On: 50-Igd-69543:58 Request LIPID PANEL (51110)Indication: Hypercholesteremia On: :55 Request D-Dimer (21521)Indication: Chest pain on breathing On: 25-Ntq-282425:20 Request Comments: STAT OIHEX-MTHAKHIQJFQ-UQJQX (73766)Indication: Elevated liver enzymes On: 19-Jul-20189:16 Request Parathyroid Hormone-related Peptide (PTH-rP) (35413)Indication: Hypercalcemia On: :42 Request CBC, Platelets & Auto Diff (24384)Indication: Headache On: 5-Skn-096543:55 Request Lipid Panel (53184)Indication: Headache On: 7-Foh-380440:53 Request TSH (32836)Indication: Headache On: 6-Avv-859535:52 Request URINALYSIS, W/ MICRO (69669)Indication: Hematuria On: 9-Jqb-349424:52 Request CALCIFEDIOL (80741)Indication: Osteoporosis On: :02 Request Comments: Aug 2017 CBC, Platelets & Auto Diff (07737)Indication: GERD (gastroesophageal reflux disease) On: :01 Request Comments: Aug 2017 Metabolic Panel, Comprehensive (41815)Indication: Hypercholesteremia On: : Request Comments: Aug 2017 Lipid Panel (59430)Indication: Hypercholesteremia On: : Request Comments: Aug 2017 LIPID PANEL (58208)Indication: Hypercholesteremia On: :39 Request Comments: in six months (approximately) METABOLIC PANEL, COMPREHENSIVE (44041)Indication: Hypercholesteremia On: :39 Request Aldosterone,24-Hour Urine (85659)Indication: Hypokalemia On: :37 Request Comments: pt to take salt load by salt food POTASSIUM SERUM (55592)Indication: Hypokalemia On: :34 Request POTASSIUM SERUM (94075)Indication: Hypokalemia On: :40 Request MAGNESIUM (39818)Indication: Hypokalemia On: :55 Request POTASSIUM SERUM (36610)Indication: Hypokalemia On: :54 Request Comments: 2 weeks ALDOSTERONE (27872)Indication: Hypokalemia On: :46 Request RENIN (88954)Indication: Hypokalemia On: :46 Request TSH (THYROID STIMULATING HORMONE) (42000)Indication: Hypokalemia On: :45 Request POTASSIUM URINE (24116)Indication: Hypokalemia On: :44 Request Comments: 24 hour urine CORTISOL FREE (04162)Indication: Hypokalemia On: :44 Request Comments: 24 hour urine Aldosterone,24-Hour Urine (65218)Indication: Hypokalemia On: :43 Request POTASSIUM SERUM (99499)Indication: Hypokalemia On: :22 Request METABOLIC PANEL, COMPREHENSIVE (51256)Indication: Hypercholesteremia On: :22 Request Comments: in six months (approximately) LIPID PANEL (72413)Indication: Hypercholesteremia On: :22 Request Comments: in six months (approximately) METABOLIC PANEL, COMPREHENSIVE (49504)Indication: Hypercholesteremia On: :50 Request Comments: in six months (approximately) LIPID PANEL (47016)Indication: Hypercholesteremia On: :50 Request Comments: in six months (approximately) METABOLIC PANEL, COMPREHENSIVE (03506)Indication: Hypercholesteremia On: :45 Request LIPID PANEL (36583)Indication: Hypercholesteremia On: :45 Request CBC WITH MANUAL DIFF (36548)Indication: Hypercholesteremia On: :45 Request URINE YAIR CULTURE-IDENTIFICATN (65972)Indication: Hematuria, unspecified On: :36 Request CALCULUS CHEMICAL QUANTI (74815)Indication: History of kidney stones On: :28 Request METABOLIC PANEL, COMPREHENSIVE (25491)Indication: Elevated blood-pressure reading without diagnosis of hypertension On: 27-Vsb-867176:15 Request LIPID PANEL (84322)Indication: Elevated blood-pressure reading without diagnosis of hypertension On: 49-Jtg-480905:15 Request CALCIFIDIOL (98146) VIT D 25Indication: Osteoporosis On: 60-Lyh-92756:00 Request TSH (06004)Indication: Stress reaction On: :56 Request URINALYSIS, W/ MICRO (96490)Indication: Elevated blood-pressure reading without diagnosis of hypertension On: :56 Request LIPID PANEL (45599)Indication: Elevated blood-pressure reading without diagnosis of hypertension On: :55 Request CBC WITH MANUAL DIFF (22921)Indication: Elevated blood-pressure reading without diagnosis of hypertension On: :55 Request METABOLIC PANEL, COMPREHENSIVE (39768)Indication: Osteoporosis On: :55 Request URINE YAIR CULTURE-IDENTIFICATN (69474)Indication: Hematuria, unspecified On: 58-Xqc-816115:04 Request URINALYSIS (21306)Indication: Hematuria On: 0-Rws-115807:09 Request Lipid Panel (17659)Indication: Screening for lipid disorders On: 1-Fzk-167977:09 Request CALCIFIDIOL (61868) VIT D 25Indication: Osteoporosis On: :08 Request CBC (Auto) (36954)Indication: Osteoporosis On: :07 Request Metabolic Panel, Comprehensive (01406)Indication: Osteoporosis On: :07 Request Planned Encounters Medical; 3 Month FU - On: 19-Oct-2018 8:30 [facility] Mylene Craig CNP, CNP, Mary E Planned Procedures Echo CompleteBy: Mylene Craig CNP On: 24-Aug-2018 Intent Mylene Craig CNP COMPUTED TOMOGRAPHY ANGIOGRAPHY OF On: 04-Aug-2018 Intent CHEST FOR PULMONARY EMBOLISM (17484)By: Katarina Bourgeois CHEST XRAY, PA & LATERAL (62325)By: On: 04-Aug-2018 Intent Katarina Bourgeois Ultrasound - LiverBy: Kiara GRIFFITH, On: 10-Dec-2017 Intent Mylene León CNP SCREENING DIGITAL TOMOSYNTHESIS OF On: 10-Dec-2017 Intent BREAST (76593)By: Mylene Craig CNP, CNP, Mary E Flu Vaccine (Quadrivalent) [id number]: On: 27-Aug-2017 Intent Mylene Craig CNP, CNP, Mary E Comments: lot: [id number]: 03/28/18ite/route: L analilia, IMamt: 0.5mlVIS and ABN signed when applicableCarmen [facility] Ear Irrigation (22830)By: Kiara On: 27-Aug-2017 Intent Mylene GRIFFITH CNP, Mary E Comments: IrrigationSite- L and RAmount/Color/Quality - medium amount removed from L ear and minimal from RTolerated [facility] hospitalC[facility] Bone Density StudyBy: Kiara GRIFFITH, On: 14-May-2017 Intent Mylene León CNP Comments: Repeat Oct 2017 MAMMOGRAM, SCREENING, BOTH BREAST On: 25-Aug-2016 Intent (04156)By: Manjit Musa MD Flu Vaccine (Quadrivalent) 06081Rz: On: 25-Aug-2016 Intent Manjit Musa MD Comments: Lot #[id number]/30/17ite-L dltd, IMDose prefilled syringegiven by:THERESA Cardenas and ABN signed COMP EYE EXAMINATION, ESTAB PATIENT On: 13-Jan-2016 Intent (11219)By: Mylene Craig CNP, CNP, Mylene Duenas CT - Abdomen & Pelvis (Without On: 25-Nov-2015 Intent Contrast)By: Jennifer Spencer DO Comments: tonight - stat Toradol Injection, 30 mg On: 11-Nov-2015 Intent (J1885)By: Mylene Craig CNP, CNP, Mary E Wax CurettesBy: Reagan Sharp MD On: 16-Sep-2015 Intent Ear Irrigation (90331)By: Lila On: 16-Sep-2015 Intent Reagan PARDO LIMITED GALLIUM SCAN FOR On: 22-Apr-2015 Intent LOCALIZATION OF ABSCESS (29126)By: Comments: head and neck Reagan Sharp MD Echo CompleteBy: Reagan Sharp MD On: 25-Mar-2015 Intent MAMMOGRAM, SCREENING, BOTH BREAST On: 25-Mar-2015 Intent (48938)By: Reagan Sharp MD DEXA SCAN AXIAL SKELETON (81072)By: On: 25-Mar-2015 Intent Reagan Sharp MD Nuclear Medicine - Bone ScanBy: On: 25-Mar-2015 Intent Reagan Sharp MD EKG (84427)By: Reagan Sharp MD On: 25-Mar-2015 Intent Comments: see scanned document of test done to see results reviewed today with patient IMMUNIZ ADMNIN, 1 VAC, SNGL/COMBO On: 25-Mar-2015 Intent (63458)By: Reagan Sharp MD ZOST[place] VACC, [place] (61242)By: Lila On: 25-Mar-2015 Intent Reagan PARDO Toradol Injection, 30 mg On: 15-Oct-2014 Intent (J1885)By: Mylene Craig CNP Comments: lot [id number] 10.10.1630mg right gmIMas, SENIOR COURTROOM CLERK GLADIS Mylene Duenas SPECIMEN HANDLING/TRANSPORT On: 15-Oct-2014 Intent (33535)By: Kiara GRIFFITH YesicaYulissa Craig CNP Yesica MAMMOGRAM, SCREENING, BOTH BREAST On: 05-Sep-2014 Intent (33987)By: Reagan Sharp MD Flu Vaccine (Quadrivalent) 31944Ie: On: 10-Aug-2014 Intent Adrienne Tirado LPN ADMINISTRATION OF INFLUENZA VIRUS On: 10-Aug-2014 Intent VACCINE (G0008)By: Candida MADRID, Comments: X23SP6.15prefilled syringeL Dltd, IMAS, LPNABN and VIS signed Adrienne Rocephin Injection, 2 Gram On: 09-Aug-2014 Intent (J0696)By: Corine Rice DO Comments: 444833q4.1.172 gmbilateral gm IMAS, LPNABN and VIS signed Wax CurettesBy: Corine Rice DO On: 09-Aug-2014 Intent Ear Irrigation (71696)By: Dwayne On: 09-Aug-2014 Corine Hunt DO Comments: b/lmoderate amount of yellow wax removed bilaterallywax curette used Ultrasound - RenalBy: Lila PARDO, On: 26-Mar-2014 Intent Reagan Martin Radiology - KUBBy: Kiara GRIFFITH Mylene On: 21-Mar-2014 Intent E Kiara GRIFFITH Yesica Comments: today Toradol Injection, 30 mg On: 21-Mar-2014 Intent (J1885)By: Mylene Craig CNP, CNP Yesica SPECIMEN HANDLING/TRANSPORT On: 21-Mar-2014 Intent (64833)By: Kiara GRIFFITH YesicaYulissa Craig CNP Yesica IMMUNIZ ADMNIN, 1 VAC, SNGL/COMBO On: 27-Jun-2013 Intent (26729)By: Reagan Sharp MD FLU VAC, SPLIT, >3 YEARS, INTRAMUSC On: 27-Jun-2013 Intent (28204)By: Reagan Sharp MD MAMMOGRAM, SCREENING, BOTH BREASTS On: 27-Jun-2013 Intent (96599)By: Reagan Sharp MD DXA, BONE DENSITY, AXIAL SKELETON On: 27-Jun-2013 Intent (12759)By: Reagan Sharp MD Eprescribed prescriptions On: 27-Jun-2013 Intent (G8553)By: Ines Jensen LPN MAMMOGRAM, SCREENING, BOTH BREASTS On: 06-Jun-2013 Intent (96757)By: Reagan Sharp MD DXA, BONE DENSITY, AXIAL SKELETON On: 06-Jun-2013 Intent (06378)By: Reagan Sharp MD Phenergan Injection, up to 50 mg On: 18-Jan-2013 Intent (J2550)By: Mylene Craig CNP, CNP, Mary E CT - Abdomen & Pelvis Stone On: 18-Jan-2013 Intent ProtocolBy: Mylene Cragi CNP Comments: today Mylene GRIFFITH Toradol Injection, 30 mg On: 18-Jan-2013 Intent (J1885)By: Mylene Craig CNP, CNP, Mary E Aerosol Treatment (94419)By: Kiara On: 31-Aug-2012 Intent Mylene GRIFFITH CNP, Mary E Bone Density StudyBy: Lila PARDO, On: 25-Apr-2012 Intent Reagan Martin IMMUNIZ ADMNIN, 1 VAC, SNGL/COMBO On: 27-Jul-2011 Intent (83023)By: Reagan Sharp MD FLU VAC, SPLIT, >3 YEARS, INTRAMUSC On: 27-Jul-2011 Intent (46347)By: Reagan Sharp MD TDAP VACCINE >7 IM (38077)By: Kiara On: 20-Mar-2010 Intent Mylene GRIFFITH CNP, Mary E Comments: Lot #[id number]/24/12Site-left deltoidgiven by:[facility] EKG (88471)By: Corine Rice DO On: 09-May-2009 Intent Comments: [...] : DISCONTINUED - CBC & PLATELETS (AUTO) (08286) Indication: Bruising Elevated liver enzymes : DISCONTINUED - HEPATIC FUNCTION PANEL (96590) Indication: Elevated liver enzymes Hypercholesteremia : How to access health information online Indication: Hypercholesteremia Hypercholesteremia : How to access health information online - Detail Indication: Hypercholesteremia Hypercholesteremia : Patient Instructions Indication: Hypercholesteremia Osteoporosis : DISCONTINUED - DEXA SCAN AXIAL SKELETON (51892) Indication: Osteoporosis Hypercholesteremia : DISCONTINUED - METABOLIC PANEL, COMPREHENSIVE (20663) Indication: Hypercholesteremia Hematuria : How to access [...] Advance Directives Name Dates Details Immunization Registry [place] - Effective on 07/19/2018. Effective: 19-Jul-2018 Expiration [...] off of atrovastatin, was taking statin at [facility] Diagnosis: Hypercholesteremia, BMI 29.0-29.9,adult, Nonsmoker, Elevated liver [...] was 2009Encounter Diagnosis: WWV V73.21 (Renamed from [facility]), Osteoporosis (733.00), Hypercholesterolemia (272.0), HEART MURMUR [...] Nausea alone (787.02), WWV V73.21 (Renamed from [facility]), Headache, Tension (307.81), LOW BACK PAIN [...] (733.00), GERD (530.81), WWV V73.21 (Renamed from [facility]) [facility] Office Visit On: [...] (530.81), Rosacea (695.3), WWV V73.21 (Renamed from [facility]), Stress Reaction (308.4) [facility] [...] End: 10-Dec-2008 12:12 [facility] Payers [facility] ANA Burrows; art guarantor
--- OUTSIDE RECORDS SUMMARY | 2018-11-03 01:13 | XMS RPT_ITS | Continuity of Care Document ---
:1955 Author Organization [facility] Address [address] [place] [address] Phone Care Team Providers Name Role Phone Mylene Craig CNP E Unavailable Dr. Cliff Eubanks Unavailable Chepe ULLOA MD , Chidi Dunlap Unavailable Kylee Mckeon Unavailable [facility] SHIVA, Milton Tompkins Unavailable Chayo Ku Unavailable Jodi Pinto Unavailable Unavailable Slarb MULTIMEDIA SERVICES MANAGER, Adrienne Unavailable Unavailable Katarina Bourgeois Unavailable Unavailable Carmen Atkins Unavailable Unavailable Long MULTIMEDIA SERVICES MANAGER, Ines L Unavailable Unavailable Unavailable Unavailable [...] loss from it Status: Active Chest pain on breathing (R07.1, 786.52) Status: Active Current nonsmoker (Renamed from Current non-smoker) (Z78.9, V49.89) Status: Active Deliveries (Parity) Comments: 4 Status: Active Elevated blood pressure reading (R03.0, 796.2) Status: Active Elevated liver enzymes (R74.8, 790.5) [...] light relatedPhonophobiaYawn a lot when have 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 Status: Active Hematuria (R31.9, 599.70) Comments: intermittant hematuria painless, saw Jacky in past cystosocpy negative, urine today neg (3-2-18) Status: Active Hematuria (R31.9, 599.70) Comments: heamturia, jacky cystoscopy 05/07/16: cystitis.Had hematuria 3 times in 03/26Has h/o kidney stonesCT scan 10/26 Status: Active Hematuria (R31.9, 599.70) Status: Active Hip pain, bilateral (M25.551, 719.45) Comments: will see what labs are like Status: Active History of kidney stones (Z87.442, V13.01) Comments: treating as if Status: Active Hypercholesteremia (E78.00, 272.0) Status: Active Hypertension (I10, 401.9) Comments: uncontrolled goal <130/80 Status: Active Hypokalemia (E87.6, 276.8) Comments: ARR [...] will discuss Tymlos and prolia, paperwork (thru [facility] and [facility]). She checked with Prolia and cost about 600.00 each Takes D3 20023 weekly with alandronate (she stopped alandronate Oct [...] thumb, right (727.03) Comments: refer to libertad moellerright middle finger and left thumbs. Status: Active Unspecified Diagnosis Status: Active Unspecified Diagnosis Status: Active Unspecified Diagnosis Status: Active UTI symptoms (R39.9, 788.99) Status: Active Vitamin D deficiency (E55.9, 268.9) Status: Active Medications Name Dates Details Alendronate Sodium 70 MG Oral Tablet 1 (one) Tablet weekly for 90 days Quantity: 12 {Tablet} Refills: 1 Ordered:15-Apr-2018 Kiara GRIFFITH, Mylene Rust CNP, Mylene Duenas Start : 15-Apr-2018 Active Atorvastatin Calcium 10 MG Oral Tablet 1 Tablet daily for 90 days Quantity: 90 {Tablet} Refills: 3 Ordered:19-Jul-2018 Kiara GRIFFITH, Mylene Rust CNP, Mylene Duenas Start : 19-Jul-2018 Active Calcium [...] days Quantity: 20 {Tablet} Refills: 0 Ordered:27-Aug-2017 SlaAdrienne esposito LPN Start : 10-Aug-2017 End : 27-Aug-2017 Inactive Bactrim DS 800-160 MG Oral Tablet 1 (one) Tablet bid for 7 days Quantity: 14 {Tablet} Refills: 0 Ordered:14-May-2017 Kiara GRIFFITH, Mylene Rust CNP, Mylene Duenas Start : 14-May-2017 End : 21-May-2017 Inactive [...] Quantity: 14 {Tablet} Refills: 0 Ordered:28-Apr-2017 Kiara HAIRSPRING TRUING INSPECTOR, Mylene Farmerart GRIFFITH, Mylene Duenas Start : 28-Apr-2017 End : 05-May-2017 Inactive CIPRO, 250MG (Oral Tablet) 1 (one) Tablet bid for 3 days Quantity: 6 {Tablet} Refills: 0 Ordered:02-Oct-2009 Ana Lauraperla GLADIS, Mylene CERVANTEScielo GRIFFITH, Mylene Duenas Start : 02-Oct-2009 End : 05-Oct-2009 Inactive CIPROFLOXACIN HCL, 500MG (Oral Tablet) 1 (one) Tablet bid for 10 days Quantity: 20 {Tablet} Refills: 0 Ordered:18-Dec-2014 Kiara HAIRSPRING TRUING INSPECTOR, Mylene Farmerart GRIFFITH, Mylene Duenas Start : 18-Dec-2014 End : [...] Quantity: 8 {Tablet} Refills: 0 Ordered:11-Nov-2015 Kiara GRIFFITH Mylene Cleary CNP Start : 11-Nov-2015 End : 13-Nov-2015 Inactive [...] Quantity: 21 {Tablet} Refills: 0 Ordered:08-Jan-2011 Ana Lauraperla GRIFFITH, Mylene Cleary CNP Start : 08-Jan-2011 End : 15-Jan-2011 Inactive [...] Cleary CNP Start : 02-Oct-2009 End : 03-Oct-2009 Inactive Vitamin D (Cholecalciferol) 1000 UNIT Oral Capsule 5 Capsule daily for 0 days Quantity: 30 {Capsule} Refills: 0 Ordered:15-Apr-2018 Adrienne Tirado LPN Start : 10-Dec-2017 End : 15-Apr-2018 Inactive Vitamin D3 98355 UNIT Oral Capsule 1 (one) Capsule Capsule [...] End : 19-Jul-2018 Discontinued CALCIUM + D, 143-052QL-TQNL (Oral Tablet) 1 qd for 0 days Refills: 0 Ordered:26-Mar-2014 SHANKAR Cleary End : 26-Mar-2014 Discontinued Comments:This order discontinued per [facility]. Calcium 1500 End : 19-Jul-2018 Discontinued CELEXA, 10MG (Oral Tablet) 1 Tablet daily for 0 days Quantity: 90 {Tablet} Refills: 3 Ordered:26-Mar-2014 Yuki Sharp MD Start : 26-Mar-2014 End : 26-Mar-2014 Discontinued CORTISPORIN, 3.5-90295-7 (Otic Solution) 4 Metric Drop tid for 0 days Quantity: 1 {Bottle} Refills: 0 Ordered:18-Dec-2014 Adrienne Tirado LPN Start : 24-Oct-2014 End : 18-Dec-2014 Discontinued Cranberry End : 19-Jul-2018 Discontinued EXTRA STRENGTH PAIN RELIEVER, 963-224-06GR (Oral Tablet) 2 qd prn headaches (250-250-65 MG) End : 18-Dec-2014 Discontinued Extra strenth generic excedrine End : 19-Jul-2018 Discontinued MULTIVITAMINS (Oral Capsule) 1 Capsule qd for 0 days Quantity: 30 {Capsule} Refills: 0 Ordered:18-Dec-2014 Candida MADRID Adrienne Start : 18-Sep-2013 End : 18-Dec-2014 Discontinued NASONEX, 50MCG/ACT (Nasal Suspension) 2 (two) Puff daily for 0 days Quantity: 1 {Bottle} Refills: 0 Ordered:18-Dec-2014 Adrienne Tirado LPN Start : 24-Oct-2014 End : 18-Dec-2014 Discontinued PriLOSEC 10 MG Oral Capsule Delayed Release 1 (one) Capsule DR Capsule DR daily for 90 days Quantity: 90 {Capsule} Refills: 0 Ordered:25-Aug-2016 Millyrb lAec MADRIDa Start : 25-Aug-2016 End : 27-Aug-2017 Discontinued [...] Status: Inactive as of 27-Aug-2017 Vaccine for gybtjgxuda-wvaxmsw-rzbunitqd with poliomyelitis (Z23, V06.3) Status: Inactive as of 18-Sep-2013 Well woman exam (Z01.419, V72.31) Comments: RACHEL no BSO, 11-13 mammo, colonoscopy 2006 Status: Inactive as of 27-Aug-2017 Wheezing (R06.2, [...] Ku Right Middle finger Date Value Details 10-Mar-2018 OT D/C Summary Result: Comments: See Note; NOTES: [facility] Occupational Therapy [facility] [address] [place] [address] Fax REHABILITATION SERVICES DIS CHARGE SUMMARY MR#: [id number] Acct: [id number] Name: YARELIS BURROWS Rep #: [id number] : 1955 62 From: Marlene Sexton Referring DrConnor: Chayo Ku DO Status: REG RCR Eval [...] Pt. is able to straighten actively. 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 Financial Developer is to continue to progress through use and strengthening protocol through HEP. SHe is to call with questions/concerns. - D/C Informati on If there are questions or concerns regarding this patient's occupational therapy, please fell free to call me at [phone]. Thank you for the referral of this patient. Sincerely, Marlene Calvert rs <Electronically signed by Marlene Sexton > 03/10/18 1400 CC: Mylene Craig NP; Chayo Ku DO KMGiuliana Signed 02-Feb-2018 Surgery Visit Report Result: Comments: See Note; NOTES: [facility] [address] [place] [address] OFFICE VISIT Date of Service: 02/01/18 MR#: [id number] Acct: [id number] Name: YARELIS RAMON Rep #: [id number] : 1955 Provider: Jenise Julian PA-C Age/Sex: 62/F Location: [facility] Status: Signed Intake Intake Visit Reasons: f/u paulino 01/25/2018 dp Black Leather Buffer Required: No Is patient in pain?: No [...] Operative Report Result: Comments: See Note; NOTES: [facility] Medical Records Department [address] [place] [address] Operative Report 01/25/18 1134 MR#: [id number] Acct: [id number] Name: ANDREW BURROWS Rep #: [id number] : 1955 62 From: Chidi Mo MD PCP: Mylene Craig NP Status: [facility] [place] [facility] Problem List (1) Calculus of gallbladder with chronic cholecystitis without ob struction Status: Acute Report of Operation Date of Procedure: 01/25/18 Pre-Operative Diagnosis: k 80.10 calculus of the gallbladder with chronic cholecystitis without obstruction Post-Operative Diagno sis: Same Surgery/Procedure Performed:: 92914 laparoscopic cholecystectomy Type of Anesthesia:: General Anesthesiologist: David Berry Description of Procedure: Patient was brought into the operating r oom and placed in the supine position. Under excellent general anesthetic the abdomen was sterilely prepped and draped in the usual fashion. Local was injected infraumbilically and dissection was vnaessa d down to the fascia the fascia [...] Date Chidi Mo MD CC: Mylene Craig PARENT COACH; Chidi Mo MD Signed 25-Jan-2018 Discharge Instruction Result: Comments: See Note; NOTES: [facility] Medical Records Department [address] [place] [address] Instructions for Home/Discharge Instructions 01/25/18 1133 MR#: [id number] Acct: [id number] Name: YARELIS BURROWS Rep #: [id number] : 1955 62 From: Chidi Mo MD PCP: Mylene Craig NP Status: REG [facility] Discharge Diet: Light diet - advance as [...] With: Chidi Mo MD - Please call [phone] to schedule an appointment. When: 7 days after your surgery. 01/25/18 1133 <Electronically signed by Chidi bishop MD> Date Chidi Mo MD CC: Mylene Craig NP 21-Jan-2018 12 Lead Electrocardiogram Result: Comments: See Note; NOTES: [facility] Cardiovascular Services [address] [place] [address] 12 Lead EKG 01/20/18 0837 MR#: [id number] Acct: [id number] Name: YARELIS BURROWS Rep #: [id number] : 1955 62 From: Anthony Ojeda MD Attending Dr: Chidi Mo MD Status: PRE SDC Ordering Dr: Chidi Mo MD Date: 01/20/18 [place] [facility] Sex: F C Admitted: Test Reason : PRE OP Blood Pressure : / mmHG Vent. Rate : 064 BPM Atrial Rate : 064 BPM P-R Int : 130 ms QRS Dur : 092 ms QT Int : 396 ms P-R-T Axes : 013 028 024 degrees QTc Int : 408 ms Normal sinus rhythm Normal ECG Confirmed by ASHLEY PARDO, ANTHONY ([id number]), online editor CAITLIN NIELSON ([id number]) on 01/21/2018 11:35:11 AM Referred By: Chidi Mo Confirmed By:ANTHONY OJEDA MD 01/21/18 1135 Date Anthony Ojeda MD CC: Mylene Craig PARENT COACH; Chidi Mo MD Signed 31-Dec-2017 SCREENING MAMM (CAD), BILAT Result: Comments: See Note; NOTES: [facility] Imaging Services [address] [place] [address] SCREENING MAMM (CAD), BILAT MR#: [id number] Acct: [id number] Name: YARELIS BURROWS Re p #: [id number] : 1955 F 62 From: Fransisco Aaron MD PCP: Mylene Craig NP Status: REG CLI Study: SCREENING MAMM (CAD), BILAT Date of Exam: 12/31/17 Exam# [id number] Ordering Dr: Mylene Craig MAMMOGR APHY - [...] Service support , CC: Mylene Craig NP Pharmaceutical Operator: Signed 30-Dec-2017 Surgery Visit Report Result: Comments: See Note; NOTES: [facility] [address] [place] [address] OFFICE VISIT Date of Service: 12/30/17 MR#: [id number] Acct: [id number] Name: YARELIS LINDSEY Rep #: [id number] : 1955 Provider: Chidi Mo MD Age/Sex: 62/F Location: [facility] Status: Signed Intake Vital Signs12/30/17 Height 5 ft 4 in 12/30/17 Weight: 177 lb Intak e Visit Reasons: cholelithiasis Black Leather Buffer Required: No Is patient in pain?: No Allergies No Known Allergies Allergy (Verified 12/30/17 13:23) Medications coenzyme Q10 200 mg capsule 200 mg PO ON CE 10/15/17 [History Confirmed 12/30/17] atorvastatin 20 mg tablet 10 mg PO QDAY tab 12/30/17 [History Confirmed 12/30/17] cholecalciferol (vitamin D3) 10,000 unit capsule 10,000 unit PO QDAY 12/30/17 [ History Confirmed 12/30/17] [facility] Medical History Esophageal reflux (Chronic) Hyperlipidemia (Chronic) [...] ultrasound was obtained. This was completed at [facility] on 12/16/2017. This showed a normal distended [...] person, oriented to place, oriented to time [facility] Head: normocephalic, atraum atic Ears: external [...] Signature: Date (if applicable) CC: Mylene Craig GUNNER 16-Dec-2017 Liver Result: Comments: See Note; NOTES: [facility] Imaging Services [address] [place], [place] [address] [place] [address] Liver MR#: [id number] Acct: [id number] Name: YARELIS BURROWS Rep #: [id number] : F 62 From: Armen Slade MD PCP: Mylene Craig NP Status: REG CLI Study: Liver Date of Exam: 12/16/17 Exam# [id number] Ordering Dr: Mylene Craig STUDY: ABDOMINAL ULTRASOUND [...] Armen Slade MD at 14:34 EST Tel [phone], Service support , CC: Mylene Craig NP Pharmaceutical Operator: Signed 09-Dec-2017 OT General Evaluation Result: Comments: See Note; NOTES: [facility] Occupational Therapy [facility] [address] [place] [address] Fax REHABILITATION SERVICES INI TIAL EVALUATION MR#: [id number] Acct: [id number] Name: YARELIS BURROWS Rep #: [id number] : 1955 62 From: Marlene Sexton Referring Dr.: Chayo Ku DO Status: REG R [facility] Date: SELF PAY INSURANCE Patient's Visit Information [...] DIP: MF 0-68, L 0-61 - Strength Financial Developer: R 39, L 52 Lateral Pinch: R 7, L 11 Tripod Pinch: R 6, L 8 Tip-to-Tip Pinch: R 6, L 4 - Edema Proximal Phalanx: MF R 7.5 cm, L 6.8 cm - Sensation Sensation Comments: WFL; deneis numbness and tingling. - Hand/Wrist Evaluation Total Score of Pain AND Functiona l Sections: 18 - Goals Goal:: Yarelis to increase R agricultural real estate agent to that of L agricultural real estate agent 2/3 trials 75% if the time to promote increased ability to complete ADL/AIDls and b hand manipulation by d/c. Goal:: Yo alston to increase R MF MCP ROM [...] 2x /Week Duration: 4 Weeks General Plan: Pt.Yarelis, to recieve OT for edema management techniques, decrease scar massage, ROM, strengthening and promoting returnto PLOF. TEXT: Thank you for the opportunity to evaluate your patient. For Medicare and Medicare HMO plans, please review the plan of care and approve it. It will need to be FAXED BACK to us at [phone] for Medicare purposes. Please let me know if there are questions or concerns regarding this plan of care. Physici an Signature: Date: <Electronically signed by Marlene Sexton > 12/09/17 1205 CC: Mylene Craig PARENT COACH; Chayo Ku DO D KMB Signed For Medicare only, by signing this I certify the plan of care. Physicians Signature Date 02-Dec-2017 Orthopedic Visit Report Result: Comments: See Note; NOTES: [facility] Orthopaedics AND Sports Medicine [address] [place] [address] OFFICE VISIT Date of Service: 12/02/17 MR#: [id number] Acct: [id number] Name: YARELIS BURROWS Rep #: [id number] : 1955 Provider: Chayo Ku DO Age/Sex: 62/F Location: [facility] Status: Signed Intake Intake Visit Reasons: Right [...] Visit Report Result: Comments: See Note; NOTES: [facility] Orthopaedics AND Sports Medicine [address] [place] [address] OFFICE VISIT Date of Service: 11/11/17 MR#: [id number] Acct: [id number] Name: STORMYYARELIS Toni Rep #: [id number] : 1955 Provider: Chayo Ku DO Age/Sex: 62/F Location: [facility] Status: Signed Intake Intake Visit Reasons: Trigger [...] mg PO ONCE 10/15/17 [History Confirmed 10/19/17] [facility] Medical History (Reviewe d 11/11/17 @ 08:03 [...] was likely lacking full extension from the jail triggering, that now she will need to [...] Operative Report Result: Comments: See Note; NOTES: [facility] Medical Records Department [address] [place] [address] Operative Report 10/20/17 0844 MR#: [id number] Acct: [id number] Name: ANDREW BURROWS Rep #: [id number] : 1955 62 From: Chayo Ku DO PCP: Mylene Craig NP Status: [facility] Y [place] [facility] Report of Operation Date of Procedure: 10/20/17 Pre-Operative Diagnosis: righ t middle finger trigger finger Post-Operative Diagnosis: same Surgery/Procedure Performed:: right middle finger a1 joleen release Type of Anesthesia:: Block,[place] Anesthesiologist: David Berry Estimated Blood Loss (mL): [...] SCDs placed on her bilateral lower extremity. [place] block was initiated and the right arm [...] with concerns This note was generated with [employer] dictation software. It ma y contain incorrect words, spelling, and punctuation that were not noted in checking the note before signing. 10/28/17 1219 <Electronically signed by Chayo Ku DO> Date ___ Chayo Ku DO CC: Mylene Craig NP; Chayo Ku DO Signed 21-Oct-2017 Dexa Bone Density Study (HP) Result: Comments: See Note; NOTES: [facility] Imaging Services [address] [place] [address] Dexa Bone Density Study (HP) MR#: [id number] Acct: [id number] Name: YARELIS BURROWS ep #: [id number] : 1955 F 62 From: Armen Slade MD PCP: Mylene Craig NP Status: REG CLI Study: Dexa Bone Density Study (HP) Date of Exam: 10/21/17 Exam# [id number] Ordering Dr: Mylene Craig STUDY: DUAL ENERGY [...] Armen Slade MD at 12:13 EST Tel [phone], Service support , CC: Mylene Craig NP Pharmaceutical Operator: Signed 20-Oct-2017 Discharge Instruction Result: Comments: See Note; NOTES: [facility] Medical Records Department [address] [place] [address] Instructions for Home/Discharge Instructions 10/20/17 0843 MR#: [id number] Acct: [id number] Name: YARELIS BURROWS Rep #: [id number] : 1955 62 From: Chaoy Ku DO PCP: Mylene Craig NP Status: REG [facility] Discharge Diet: No Restrictions - keep dressing [...] Follow Up With: Chayo Ku DO - [phone] 10/20/17 0844 <Electronically signed by Chayo Ku DO> Date __ Chayo Ku DO CC: Mylene Craig NP 19-Oct-2017 Orthopedic Visit Report Result: Comments: See Note; NOTES: [facility] Orthopaedics AND Sports Medicine [address] [place] [address] OFFICE VISIT Date of Service: 10/15/17 MR#: [id number] Acct: [id number] Name: YARELIS BURROWS Toni Rep #: [id number] : 1955 Provider: Chayo Ku DO Age/Sex: 62/F Location[place] [facility] Status: Signed Intake Vital Signs10/15/17 Height 5 [...] (CAD), BILAT Result: Comments: See Note; NOTES: [facility] Imaging Services [address] [place] [address] Verdajn 4d SCREENING MAMM (CAD), BILAT MR#: [id number] Acct: [id number] Name: ANDREW BURROWS Rep #: [id number] : 1955 F 61 From: Armen Slade MD PCP: Mylene Craig Status: REG CLI Study: SCREENING MAMM (CAD), BILAT Date of Exam: 10/29/16 Exam# [id number] Ordering Dr: Manjit Musa MAMMOGRAPHY - BILATERAL [...] delay biopsy of a clinically suspicious abnormality. [id number] Electronically Signed: Armen Slade MD at 8:12 EST Tel [phone], Service support [phone], CC: Mylene Craig; Manjit Musa Pharmaceutical Operator: Signed 17-Sep-2016 Finger(s) Min 2 Views Result: Comments: See Note; NOTES: [facility] Imaging Services [address] [place] [address] Verdajn 4d Finger(s) Min 2 Views MR#: [id number] Acct: [id number] Name: YARELIS BURROWS Rep #: [id number] : 1955 F 61 From: Donal Austin MD PCP: Yuki Sharp MD Status: REG CLI Study: Finger(s) Min 2 Views Date of Exam: 09/17/16 Exam# [id number] Ordering Dr: Chayo Ku DO STUDY: X-RAY [...] MD at 11:37 EST , Service support [phone], CC: Chayo Ku DO; Yuki Sharp MD Pharmaceutical Operator: Signed 17-Sep-2016 Hand Min 3 Views Result: Comments: See Note; NOTES: [facility] Imaging Services [address] [place] [address] Verda 4d Hand Min 3 Views MR#: [id number] Acct: [id number] Name: YARELIS BURROWS Re p #: [id number] : 1955 F 61 From: Donal Austin MD PCP: Yuki Sharp MD Status: REG CLI Study: Hand Min 3 Views Date of Exam: 09/17/16 Exam# [id number] Ordering Dr: Chayo Ku DO STUDY: X- [...] MD at 11:36 EST , Service support [phone], CC: Chayo Ku DO; Yuki Sharp MD Pharmaceutical Operator: Signed 26-Nov-2015 Abdomen/Pelvis without Cont Result: Comments: See Note; NOTES: [facility] Imaging Services [address] [place] [address] Verdana 4d Abdomen/Pelvis without Cont MR#: [id number] Acct: [id number] Name: YARELIS BURROWS Rep #: [id number] : 1955 F 60 From: Armen Slade MD PCP: Yuki Sharp MD Status: REG CLI Study: Abdomen/Pelvis without Cont Date of Exam: 11/26/15 Exam# [id number]: Jennifer Spencer DO STUDY: [...] Armen Slade MD at 9:10 EST Tel [phone], Service support [phone], CC: Yuki Sharp MD; Jennifer pSencer DO Pharmaceutical Operator: Signed 15-Oct-2015 Bilat Scrn Digital AND CAD Result: Comments: See Note; NOTES: [facility] Imaging Services [address] [place] [address] Verdana 4d Bilat Scrn Digital AND CAD MR#: [id number] Acct: [id number] Name: STORMYYARELIS L Rep #: [id number] : 1955 F 60 From: Armen Slade MD PCP: Yuki Sharp MD Status: REG CLI Study: Jaydon Yo Digital AND CAD Date of Exam: 10/15/15 Exam# [id number] Ordering Dr: Yuki Sharp MD MAMMOGRAPHY - [...] biopsy of a clinically s uspicious abnormality. [id number] Electronically Signed: Armen Slade MD at 7:46 EST Tel [phone], Service support [phone], CC: Yuki Sharp MD Pharmaceutical Operator: Signed 15-Oct-2015 Dexa Bone Density Study (HP) Result: Comments: See Note; NOTES: [facility] Imaging Services [address] [place] [address] Verdana 4d Dexa Bone Density Study (HP) MR#: [id number] Acct: [id number] Name : YARELIS BURROWS Rep #: [id number] : 1955 F 60 From: Armen Slade MD PCP: Yuki Sharp MD Status: REG CLI Study: Dexa Bone Density Study () Date of Exam: 10/15/15 Exam# [id number]: Yuki Sharp MD STUDY: [...] Armen Slade MD at 15:58 EST Tel [phone], Service support [phone], CC: Yuki Sharp MD Pharmaceutical Operator: Signed 20-May-2015 Gallium ScanWB Tumor/SingleDay Result: Comments: See Note; NOTES: [facility] Imaging Services [address] [place] [address] Nuclear Medicine Report MR#: [id number] Acct: [id number] Name: YARELIS BURROWS Rep #: [id number] : 1955 F 59 From: Karlos Landers DO PCP: Yuki Sharp MD Status: REG CLI Study: Gallium ScanWB Tumor/SingleDay Date of Exam: 05/20/15 Exam# [id number] Ordering Dr: Yuki Sharp MD CLINICAL: 59-year-old [...] Karlos Landers DO at 21:27 EDT Tel [phone], Service support [phone], CC: Yuki Sharp MD Pharmaceutical Operator: Signed 08-Apr-2015 Echocardiogram Complete Result: Comments: See Note; NOTES: [facility] Cardiovascular Services [address] [place] [address] Echo Complete 04/08/15 1408 MR#: [id number] Acct: [id number] Name: YARELIS BURROWS Rep #: [id number] : 1955 59 From: Anthony Ojeda MD Attending Dr: Yuki Sharp MD Status: REG CLI Ordering Dr: Yuki Sharp MD Date: 04/08/15 Location: [facility] Sex: F C Admitted: Procedure [...] Ordering Physician: Yuki Sharp Performed By: Delaney Wyatt, NARDA, RVT 04/08/15 1543 Date Anthony Ojeda MD CC: Yuki Sharp MD Date Dictated: 04/08/15 1408 Date Transcribed: 04/08/15 1543 Pharmaceutical Operator: Signed 03-Apr-2015 Bone Scan Whole Body Result: Comments: See Note; NOTES: [facility] Imaging Services [address] [place] [address] Nuclear Medicine Report MR#: [id number] Acct: [id number] Name: YARELIS BURROWS Rep #: [id number] : 1955 F 59 From: Karlos Landers DO PCP: Yuki Sharp MD Status: REG CLI Study: Bone Scan Whole Body Date of Exam: 04/03/15 Exam# [id number] Ordering Dr: Yuki Sharp MD CLINICAL: 59-year-old [...] Karlos Landers DO at 8:10 EDT Tel [phone], Service support [phone], CC: Yuki Sharp MD Pharmaceutical Operator: Signed 26-Sep-2014 Bilat Scrn Digital AND CAD Result: Comments: See Note; NOTES: [facility] Imaging Services [address] [place] [address] Breast Imaging Report MR#: [id number] Acct: [id number] Name: YARELIS BURROWS Re p #: [id number] : 1955 F 59 From: Armen Slade MD PCP: Yuki Sharp MD Status: REG CLI Study: Bilat Scrn Digital AND CAD Date of Exam: 09/26/14 Exam# [id number] Ordering Dr: Luis Sharp MD MAMMOGRAPHY - [...] Armen Slade MD at 7:28 EST Tel [phone], Service support [phone], CC: Yuki Sharp MD Pharmaceutical Operator: Signed 05-Apr-2014 Kidney and Bladder Result: Comments: See Note; NOTES: [facility] Imaging Services [address] [place], [place] [address] [address] Ultrasound Report MR#: [id number] Acct: [id number] Name: YARELIS BURROWS Rep #: [id number] : 1955 F 58 From: Justyn Neville PCP: Yuki Sharp MD Status: REG CLI Study: Kidney and Bladder Date of Exam: 04/05/14 Exam# [id number] Ordering Dr: Yuki Sharp MD STUDY: R [...] at 2:00 EDT Tel , Service support [phone], CC: Yuki Sharp MD Pharmaceutical Operator: Signed 21-Mar-2014 Abdomen Single View Result: Comments: See Note; NOTES: [facility] Imaging Services [address] [place] [address] Radiology Report MR#: [id number] Acct: [id number] Name: YARELIS BURROWS Rep #: [id number] : 1955 F 58 From: Armen Slade MD PCP: Status: REG CLI Study: Abdomen Single View Date of Exam: 03/21/14 Exam# [id number] Ordering Dr: Mylene Craig STUDY: X-RAY - [...] Armen Slade MD at 12:51 EDT Tel [phone], Service support [phone], RAD/Abdomen Single View IMPRESSION: Stable calcifications overlying both kidneys. Cholelithiasis. Electronically Signed: Armen Slade MD at 12:51 EDT Tel [phone], Service support [phone], CC: Mylene Craig Pharmaceutical Operator: Signed 09-Oct-2013 PT Letter Result: Comments: See Note; NOTES: [facility] [address] [facility] [place], [place] [address] Fax Yuki Sharp MD [address] , [address] [place] [address] Sharp: Yarelis Burrows, date of , 1955, was seen for a massotherapy evaluation on November 02, 2012, with a diagnosis of tension headach es. This patient was treated with 6 sessions of massage therapy, which consisted of cihhptvj-af-uwfs tissue full body massage. Myofacial release and muscle stripping were incorporated into the mas annamarie as well as the heat pack to loosen muscles. Due to time constraints with insurance, at this time, I would discharge this patient from our care at [facility] facility . Sincerely, Libby Marie LMT T: NTS JOB: [id number] <Electronically signed by Libby Marie > 10/09/13 1704 CC: -Aug-2013 Bilat Scrn Digital & CAD Result: Comments: See Note; NOTES: [facility] Imaging Services [address] [place] [address] Breast Imaging Report MR#: [id number] Acct: [id number] Name: YARELIS BURROWS Amber p #: [id number] : 1955 F 58 From: Armen Slade MD PCP: Status: REG CLI Exam# [id number] Ordering Dr: Yuki Sharp MD MAMMOGRAPHY - [...] 30, 2013 at 7 :48:44 AM EST [phone] Electronically Signed GP/GP If you are the referring physician and would like to consult with the radiologist who provided this interpretation, please contact Armen Slade M.D. at [phone]. If this radiologist is unavailable, you will be directed to another radiologist to assist. If you are a patient with a question regarding this report, please contact your referring physician directly. Professional Interpretation Provided By: Browsy, Phone , These documents contain legally protected [...] of these documents. CC: Yuki Sharp MD Pharmaceutical Operator: Signed 29-Aug-2013 Dexa Bone Density Study (HP) Result: Comments: See Note; NOTES: [facility] Imaging Services [address] [place] [address] Bone Density Report MR#: [id number] Acct: [id number] Name: YARELIS BURROWS Rep #: [id number] : 1955 F 58 From: Armen Slade MD PCP: Status: REG CLI Study: Dexa Bone Density Study (HP) Date of Exam: 08/29/13 Exam# [id number] Ordering Dr: Yuki Sharp MD STUDY : [...] August 30, 2013 at 12:10:19 PM EST [phone] Electronically Signed GP/GP If you are the referring physician and would like to consult with the radiologist who provided this interpretation, please contact Armen Slade M.D. at [phone]. If this radiologist is unavailable, you will be directed to another ra diologist to assist. If you are a patient with a question regarding this report, please contact your referring physician directly. Professional Interpretation Provided By: Browsy, Phone , These documents contain legally protected [...] of these documents. CC: Yuki Sharp MD Pharmaceutical Operator: Signed Family History Unknown Family Member Name [...] Active Current Work/Study Status Comments: Full-time, [employer] Status: Active Exercise History Comments: Light Status: Active Living Situation Comments: , Lives with spouse Status: Active No Drug Use Status: Active Non Smoker/No Tobacco Use Status: Active Tobacco use: Never smoker. Status: Active Smoking Status Name Dates Details Never smoker Vital Signs Date Test Result Details :02 Temperature 97.6 f Comments: Method: Temporal [...] kg/m2 Body Surface Area Calculated 1.84 m2 84-Lpk-753248:40 Temperature 97.1 f Pulse 70 /min Comments: [...] 0.00 cm Results Date Description Value Details 71-Kuk-352850:29 D-Dimer Quantitative (DVT/PE) Comments: [facility] [address] [place], [place], [address] D-DIMER QUANT 0.27 {FEU/ug/m} (Normal) Range: 0.27-0.49 Comments: NORMAL D-Dimer level (<0.50) indicates no DVT or PE. :08 CBC, Platelets & Auto Diff Comments: PATIENT WAS FASTINGPERFORMED BY: [facility] Yxwwcs3473 [facility] [id number] (51070) Immature Grans (Abs) 0.0 {x10E3/uL} (Normal) Range: [...] {x10E3/uL} (Normal) Range: 3.4-10.8 :08 Lipid Panel (30890) Comments: PATIENT WAS FASTINGPERFORMED BY: [employer] [id number] LDL/HDL Ratio 2.9 {ratio} (Normal) Range: 0.0-3.2 [...] Panel, Comprehensive Comments: PATIENT WAS FASTINGPERFORMED BY: [employer]6370 Aparc SystemsScotland Memorial Hospital [id number] (26434) ALT (SGPT) 27 [iU]/L (Normal) Range: 0-32 [...] 8-27 Glucose 91 mg/dL (Normal) Range: 65-99 81-Zbq-66134:0 GALLBLADDER See Note (Normal) Comments: [facility] [address] [facility] [place], [address] 0 Comments: Patient: YARELIS BURROWS : 1955 (62/F) Acct Num: [id number] Phys: Chepe PARDO,Chidi Unit Num: [id number] Loc: [facility] Specimen: [id number] Received: 01/25/18 151 Spec Ty pe: GALLBLADDE TISSUES TISSUES: Gallbladder, [...] measures up to 0.2 cm in thickness. [employer] sections from the gallbladder and the cystic duct are submitted in one cassette. / PITER:trevor 01/25/18 TC:3 CPT: 06954 HEADER OPERATION: Laparoscopic cholecystectomy PRE-OP DIAGNOSIS: Calculus of gallbladder with chronic cholecystitis without obstruction TISSUE SUBMITTED: Adriel avalos MICROSCOPIC DESCRIPTION Slides are reviewed. MICROSCOPIC DIAGNOSIS Gallbladder: Chronic cholecystitis and cholelithiasis. PITER:trevor 01/26/18 Signed Osmany Velarde 01/26/18 <signature on file> :18 CBC-Complete Blood Cnt No Diff Comments: [facility] [address] [place], [address] MPV 11.2 fL (Normal) Range: 6.2-12.0 PLT [...] 4.2-5.4 WBC 3.3 K/mm3 (Abnormal) Range: 4.4-11.0 21-Sbm-94073:11 HEPATIC FUNCTION PANEL Comments: PATIENT NOT FASTINGPERFORMED BY: Inversiones.comRoosevelt General HospitalXkobbl2513 [facility] [id number] (96110) ALT (SGPT) 20 [iU]/L (Normal) Range: 0-32 AST (SGOT) 17 [iU]/L (Normal) Range: 0-40 Alkaline Phosphatase 78 [iU]/L (Normal) Range: 39-117 Bilirubin, Direct 0.17 mg/dL (Normal) Range: 0.00-0.40 Bilirubin, Total 0.9 mg/dL (Normal) Range: 0.0-1.2 Albumin 4.4 g/dL (Normal) Range: 3.6-4.8 Protein, Total 6.8 g/dL (Normal) Range: 6.0-8.5 :11 PARATHORMONE (09458) Comments: PATIENT NOT FASTINGPERFORMED BY: [employer] Pqsvga1893 [facility] [id number] PTH, Intact 45 pg/mL (Normal) Range: 15-65 :11 CALCIUM SERUM (72480) Comments: PATIENT NOT FASTINGPERFORMED BY: [employer] Mqtzgo8552 [facility] [id number] Calcium 9.0 mg/dL (Normal) Range: 8.7-10.3 :35 HEPATITIS PANEL (75436) Comments: PATIENT NOT FASTINGPERFORMED BY: [facility]SoftAsc[facility] St. [facility] Hospital6370 [facility] [id number] Hep C Virus Ab <0.1 {s/co_ratio} (Normal) Range: 0.0-0.9 Comments: Negative: < 0.8 Indeterminate: 0.8 - 0.9 Positive: > 0.9 . The CDC recommends that a positive HCV antibody result be followed up with a HCV Nucleic Acid Amplification test (362017). Hep B Core Ab, IgM Negative (Normal) HBsAg Screen Negative (Normal) Hep A Ab, IgM Negative (Normal) :35 FAHIM-FFYYNWVMXVX-CKNIO (09516) Comments: PATIENT NOT FASTINGPERFORMED BY: [facility]Asc[facility] St. [facility] Hospital6370 [facility] [id number] AFP, Serum, Tumor Marker 8.0 ng/mL (Normal) Range: 0.0-8.3 Comments: Alexandra ECLIA methodology :49 Urinalysis, Office (58334) URINE UROBILINGN JEANNINE TIMED 2 mg/dL (Normal) [...] With Differential/Platelet Comments: PATIENT WAS FASTINGPERFORMED BY: LabCoMonmouth Medical CenterTrhuwn8167 [facility] [id number] Immature Grans (Abs) 0.0 {x10E3/uL} (Normal) Range: [...] Panel (14) Comments: PATIENT WAS FASTINGPERFORMED BY: [facility] Yrioli3623 [facility] [id number] ALT (SGPT) 91 [iU]/L (Abnormal) Range: 0-32 [...] With LDL/HDL Comments: PATIENT WAS FASTINGPERFORMED BY: LabCoRoosevelt General HospitalGiuorg1908 [facility] [id number] Ratio LDL/HDL Ratio 1.6 (Normal) Range: 0.0-3.2 Comments: LDL/HDL Ratio Men Women 1/2 Avg.Risk 1.0 1.5 Av g.Risk 3.6 3.2 2X Avg.Risk 6.2 5.0 3X Avg.Risk 8.0 6.1 LDL Cholesterol Calc 92 (Normal) Range: 0-99 VLDL Cholesterol Damon 29 (Normal) Range: 5-40 HDL Cholesterol 56 mg/dL (Normal) Triglycerides 145 mg/dL (Normal) Range: 0-149 Cholesterol, Total 177 mg/dL (Normal) Range: 100-199 05-Iqx-79844:15 Microscopic Examination Comments: PATIENT WAS FASTINGPERFORMED BY: [employer] [place] [facility] [id number] Bacteria Few (Normal) Mucus Threads Present (Normal) Epithelial Cells (non 0-10 {/hpf} Range: 0 - 10 renal) (Normal) RBC 0-2 {/hpf} (Normal) Range: 0 - 2 WBC 11-30 {/hpf} Range: 0 - 5 (Abnormal) TSH 2.840 {uIU/mL} Comments: PATIENT WAS FASTINGPERFORMED BY: [employer] Mcksgm2247 [facility] [id number] :15 (Normal) Range: 0.450-4.500 :15 Urinalysis, Complete Comments: PATIENT WAS FASTINGPERFORMED BY: [place] [facility] [id number] Microscopic Examination See below: (Normal) Comments: Microscopic was indicated and was performed. Nitrite, Urine Positive (Abnormal) Urobilinogen,Semi-Qn 0.2 mg/dL (Normal) Range: 0.2-1.0 Bilirubin Negative (Normal) Occult Blood Negative (Normal) Ketones Negative (Normal) Glucose Negative (Normal) Protein Negative (Normal) WBC Esterase 2+ (Abnormal) Appearance Clear (Normal) Urine-Color Yellow (Normal) pH 7.5 (Normal) Range: 5.0-7.5 Specific Chester 1.015 (Normal) Range: 1.005-1.030 :06 URINE YAIR CULTURE-IDENTIFICATN Comments: PATIENT NOT FASTINGPERFORMED BY: [employer] [place] [facility] [id number] Information: SRC: (18059) Antimicrobial MIHEAD (Normal) Comments: S = Susceptible; [...] mL (Abnormal) Urine Final report Culture,Comprehensive (Abnormal) 48-Abh-326396:41 Urinalysis, Office (77262) UA - LEUKOCYTE ESTERASE Small (Normal) UA - NITRITE Negative (Normal) URINE UROBILINGN JEANNINE TIMED 2 mg/dL (Normal) UA - PROTEIN Negative mg/dL (Normal) UA - PH 7 (Normal) UA - BLOOD Negative (Normal) UA - SPECIFIC GRAVITY 1.020 (Normal) UA - KETONES Negative mg/dL (Normal) UA - BILIRUBIN Negative (Normal) UA - GLUCOSE Negative (Normal) 51-Ogy-00908:07 MAGNESIUM (35524) Comments: PATIENT NOT FASTINGPERFORMED BY: [facility] Jmmmyo8114 [facility] [id number] Magnesium, Serum 2.1 mg/dL (Normal) Range: 1.6-2.3 :07 POTASSIUM SERUM (66361) Comments: PATIENT NOT FASTINGPERFORMED BY: [facility] Dkzndo8588 [facility] [id number]; OV today Potassium, Serum 3.7 mmol/L (Normal) Range: 3.5-5.2 :32 Culture, Urine Comments: [facility] [address] [place], [address] CUUR See Note (Normal) Comments: Urine CultureBelow infection level. ORGANISM 1: Gram negative rodColony Count <1000 :30 CBC W/Diff, Automated Comments: [facility] [address] [place], [place], [address] Absolute Lymph 1.01 {X10_3/ul} (Normal) Range: 0.83-4.51 [...] 4.2-5.4 WBC 4.0 K/mm3 (Abnormal) Range: 4.4-11.0 59-Uco-13115:30 Comprehensive Metabolic Profil Comments: [facility] [address] [place], [place], [address] GAP 9 (Normal) Range: 5-15 CO2 29.0 [...] 7-18 GLU 99 mg/dL (Normal) Range: 70-110 89-Lbo-47492:30 Lipid Profile Comments: [facility] [address] [place], [place], [address] VLDL 15 mg/dL (Normal) Range: 5-40 LDL [...] 200-240 mg/dL Borderline >240 mg/dL High Risk 45-Plm-71801:30 Vitamin D,25 Hydroxy Comments: [facility] [address] [place], [address] Vitamin D 25-OH 40.8 ng/mL (Normal) Comments: Vitamin D 25(OH) Status Range Deficiency <20 ng/mL (50nmol/L) Insuffciency 20 - 30 ng/mL (50 - 75 nmol/L) Sufficiency 30 - 100 ng/mL (75 - 250 nmol/L) Toxicity >100 ng/mL (>250 nmol/L) 4-Gwy-727117:00 Culture, Urine Comments: [facility] [address] [place], [address] CUUR See Note (Normal) Comments: Urine CultureORGANISM [...] $ <=20 S(NF) indicates non-formulary drug at [facility]. Approval by Infectious Disease Specialist required before non-formulary drugs may be ordered and/or dispensed. 6-Rru-171850:59 CALCIFEDIOL (98174) Comments: today; PATIENT NOT FASTINGPERFORMED BY: LabCoMonmouth Medical CenterMjqwnr5029 [facility] [id number] Vitamin D, 25-Hydroxy 59.8 ng/mL (Normal) Range: 30.0-100.0 Comments: Vitamin D deficiency has been defined by the Scheller ofMedicine and an Endocrine Society practice guideline as alevel of serum 25-OH vitamin D less than 20 ng/mL (1,2).The Endocrine Society went on to further define vitamin Dinsufficiency as a level between 21 and 29 ng/mL (2).1. IOM (Scheller of Medicine). 2010. Dietary reference intakes for calcium and D. [place]: The National Academies Press.2. Jaz MF, Chapo HOPE, Papito ROBERT, et al. Evaluation, treatment, and prevention of vitamin D deficiency: an Endocrine Society clinical practice guideline. JCEM. 2010; 96(7):1911-30. 8-Xep-706429:59 URINE YAIR CULTURE-IDENTIFICATN Comments: PATIENT NOT FASTINGPERFORMED BY: CB [facility] Iiqjfj8217 Argueta RoadSloop Memorial Hospital [id number] Information: SRC:UC (98350) Result 1 ECV (Abnormal) Comments: Escherichia coli, [...] report Culture,Comprehensi (Abnormal) ve 14-May-20179:34 Urinalysis, Office (45708) UA - LEUKOCYTE ESTERASE Moderate (Normal) UA - NITRITE Negative (Normal) URINE UROBILINGN JEANNINE TIMED Normal mg/dL (Normal) UA - PROTEIN Negative mg/dL (Normal) UA - PH 7.5 (Normal) UA - BLOOD Non Hemolyzed Trace (Normal) UA - SPECIFIC GRAVITY 1.010 (Normal) UA - KETONES Negative mg/dL (Normal) UA - BILIRUBIN Negative (Normal) UA - GLUCOSE Negative (Normal) 37-Qob-047357:31 URINE YAIR CULTURE-JEANNINE COL Comments: PATIENT NOT FASTINGPERFORMED BY: [facility] Ijccbv2375 Argueta RoadDuke Raleigh Hospitalin [place] [id number] Information: SRC:UC COUNT (45575) Antimicrobial MIHEAD (Normal) Comments: S = Susceptible; [...] mL (Abnormal) Urine Final report Culture,Comprehensive (Abnormal) :59 Urinalysis, Office (50372) UA - LEUKOCYTE ESTERASE Large (Normal) UA - NITRITE Negative (Normal) URINE UROBILINGN JEANNINE TIMED Normal mg/dL (Normal) UA - PROTEIN Negative mg/dL (Normal) UA - PH 6 (Abnormal) UA - BLOOD Hemolyzed Large (Normal) UA - SPECIFIC GRAVITY 1.010 (Normal) UA - KETONES Negative mg/dL (Normal) UA - BILIRUBIN Negative (Normal) UA - GLUCOSE Negative (Normal) 91-Wag-38127:12 CBC WITH MANUAL DIFF (68778) Comments: PATIENT NOT FASTINGPERFORMED BY: [facility] Piwfki2353 [facility] [id number] Immature Grans (Abs) 0.0 {x10E3/uL} (Normal) Range: [...] CREATININE RATIO Comments: PATIENT WAS FASTINGPERFORMED BY: LabLiveSafeMonmouth Medical CenterHjajjb2618 [facility] [id number] (20583) AND (05026) Microalb/Creat Ratio 11.2 {mg/g_creat} (Normal) Range: 0.0-30.0 Microalbumin, Urine 13.2 ug/mL (Normal) Creatinine, Urine 117.4 mg/dL (Normal) :28 CALCIFEDIOL (66381) Comments: PATIENT WAS FASTINGPERFORMED BY: LabCoMonmouth Medical CenterDpwsqp2150 [facility] [id number] Vitamin D, 25-Hydroxy 68.0 ng/mL (Normal) Range: 30.0-100.0 Comments: Vitamin D deficiency has been defined by the Scheller ofMedicine and an Endocrine Society practice guideline as alevel of serum 25-OH vitamin D less than 20 ng/mL (1,2).The Endocrine Society went on to further define vitamin Dinsufficiency as a level between 21 and 29 ng/mL (2).1. IOM (Scheller of Medicine). 2010. Dietary reference intakes for calcium and D. [place]: The National Academies Press.2. Jaz MF, Chapo HOPE, Papito ROBERT, et al. Evaluation, treatment, and prevention of vitamin D deficiency: an Endocrine Society clinical practice guideline. JCEM. 2010; 96(7):1911-30. 52-Kfq-26187:28 TSH (THYROID STIMULATING Comments: PATIENT WAS FASTINGPERFORMED BY: [facility]Soft[facility] St. [facility] Hospital6370 [facility] [id number] HORMONE) (80002) TSH 3.970 {uIU/mL} (Normal) Range: 0.450-4.500 :28 LIPID PANEL (05305) Comments: PATIENT WAS FASTINGPERFORMED BY: [facility]6370 [facility] [id number] LDL/HDL Ratio 1.4 {ratio_units} (Normal) Range: 0.0-3.2 [...] PANEL, COMPREHENSIVE Comments: PATIENT WAS FASTINGPERFORMED BY: [facility]SoftAsc[facility] St. [facility] Hospital6370 [facility] [id number] (75424) ALT (SGPT) 25 [iU]/L (Normal) Range: 0-32 [...] Glucose, Serum 89 mg/dL (Normal) Range: 65-99 48-Nop-52620:28 CBC, PLATELETS & AUT DIFF Comments: PATIENT WAS FASTINGPERFORMED BY: LabCoMonmouth Medical CenterOisohz4841 [facility] [id number] (18187) Immature Grans (Abs) 0.0 {x10E3/uL} (Normal) Range: [...] CREATININE RATIO Comments: PATIENT WAS FASTINGPERFORMED BY: [employer] [facility] [id number] (20716) AND (72090) Microalb/Creat Ratio 15.5 {mg/g_creat} (Normal) Range: 0.0-30.0 Microalbumin, Urine 8.6 ug/mL (Normal) Creatinine, Urine 55.6 mg/dL (Normal) :27 CALCIFEDIOL (14235) Comments: PATIENT WAS FASTINGPERFORMED BY: [employer] [facility] HospitalFreedu.inScotland Memorial Hospital [id number] Vitamin D, 25-Hydroxy 29.7 ng/mL (Abnormal) Range: 30.0-100.0 Comments: Vitamin D deficiency has been defined by the Scheller ofSalem Regional Medical Centercine and an Endocrine Society practice guideline as alevel of serum 25-OH vitamin D less than 20 ng/mL (1,2).The Endocrine Society went on to further define vitamin Dinsufficiency as a level between 21 and 29 ng/mL (2).1. IOM (Scheller of Medicine). 2010. Dietary reference intakes for calcium and D. [place]: The National Academies Press.2. Jaz MF, Chapo [place], Papito ROBERT, et al. Evaluation, treatment, and prevention of vitamin D deficiency: an Endocrine Society clinical practice guideline. JCEM. 2010; 96(7):1911-30. :27 LIPID PANEL (55190) Comments: PATIENT WAS FASTINGPERFORMED BY: [employer] Qbssiq0293 [facility] [id number] LDL/HDL Ratio 1.5 {ratio_units} (Normal) Range: 0.0-3.2 [...] Cholesterol, Total 176 mg/dL (Normal) Range: 100-199 64-Loi-580056:27 METABOLIC PANEL, COMPREHENSIVE Comments: PATIENT WAS FASTINGPERFORMED BY: LabCoMonmouth Medical CenterAllavg0028 [facility] [id number] (51431) ALT (SGPT) 22 [iU]/L (Normal) Range: 0-32 [...] Glucose, Serum 89 mg/dL (Normal) Range: 65-99 :27 CBC, PLATELETS & AUT DIFF Comments: PATIENT WAS FASTINGPERFORMED BY: [facility] Vchbyx500[address] [place] [place] [id number] Information: [id number],W69494 (50850) Immature Grans (Abs) 0.0 {x10E3/uL} Range: 0.0-0.1 [...] CYTOSPIN ON FLUID See Note (Normal) Comments: [facility] [address] [place], [address] 00 Comments: Patient: YARELIS BURROWS : 1955 (60/F) Acct Num: [id number] Phys: Jacky PARDO,Robb Unit Num: [id number] Loc: [facility] Specimen: [id number] Received: 04/21/16 - 1323 Spec Type: CYSPIN FL TISSUES TISSUES: COMMENT Differential diagnosis includes infection, calculi or low-grade urothelial neoplasm. CYTOLOGY GROSS Received is 60 ml of clear yello w fluid labeled with the patient's name and and designated per the requisition as urine. Submitted for cytology preparation. 04/21/16 TC:5 CPT: 93885 CYTOLOGY STUDY Slides are reviewed. The specimen [...] Signed Osmany Velarde 04/22/16 <signature on file> 35-Yyu-867608:17 URINE YAIR CULTURE-JEANNINE COL Comments: PATIENT NOT FASTINGPERFORMED BY: [facility] Tpbmtn6823 [facility] [id number] Information: SRC:[facility] [place] [id number] [place] (60924) Result 1 CNSNSS (Abnormal) Comments: Coagulase negative [...] S Urine Final report Culture,Comprehens (Abnormal) tracey 48-Zyc-258359:10 Urinalysis, Office (11546) UA - LEUKOCYTE ESTERASE Negative (Normal) UA - NITRITE Negative (Normal) URINE UROBILINGN JEANNINE TIMED Normal mg/dL (Normal) UA - PROTEIN Negative mg/dL (Normal) UA - PH 7 (Normal) UA - BLOOD Non Hemolyzed Moderate (Normal) UA - SPECIFIC GRAVITY 1.010 (Normal) UA - KETONES Negative mg/dL (Normal) UA - BILIRUBIN Negative (Normal) UA - GLUCOSE Negative (Normal) 0-Xpo-103695:54 URINE YAIR CULTURE-JEANNINE COL Comments: PATIENT NOT FASTINGPERFORMED BY: JUAN [facility] Nskirz7466 ArguetaParkland Health Center [id number] Information: SRC:[facility] [place] [id number] COUNT (26185) Antimicrobial MIHEAD (Normal) Comments: S = Susceptible; [...] mL (Abnormal) Urine Final report Culture,Comprehensive (Abnormal) 2-Kug-384352:41 Urinalysis, Office (56110) UA - LEUKOCYTE ESTERASE Moderate (Normal) UA - NITRITE Negative (Normal) URINE UROBILINGN JEANNINE TIMED Normal mg/dL (Normal) UA - PROTEIN Negative mg/dL (Normal) UA - PH 7 (Normal) UA - BLOOD Non Hemolyzed Moderate (Normal) UA - SPECIFIC GRAVITY 1.015 (Normal) UA - KETONES Negative mg/dL (Normal) UA - BILIRUBIN Negative (Normal) UA - GLUCOSE Negative (Normal) 84-Zji-032511:06 Aldosterone, Serum Comments: [facility] (refer to report for specific site)refer to report for address and phone number [id number] 7419 4.8 ng/dL (Normal) Range: 0.0-30.0 66-Knh-740243:06 Magnesium Comments: [facility] Kmshtcvrom9386 [place], [address] MG 2.1 mg/dL (Normal) Range: 1.8-2.4 38-Ppf-140243:06 Potassium Comments: [facility] Zimszzjxjr7109 [place], [address] K 3.4 mmol/L (Abnormal) Range: 3.5-5.1 45-Vlj-290693:06 Renin, Plasma Comments: [facility] (refer to report [...] 2.80 Na= >150 0.39 - 1.31Performed at: [facility] Inversiones.com[address] [id number] Director: Nomi Villeda MD, Phone: [phone] 88-Uiq-531732:06 Thyroid Stim Hormone (TSH) Comments: [facility] Juhoacuurf7879 DONE[place] Fontanez, [address](758) TSH 1.93 {uIU/mL} (Normal) Range: 0.358-3.74 10-Apr-20158:39 Potassium Comments: Test performed at:[facility] Dtnkmgeikn75[address] [place] [address] K 3.6 mmol/L (Normal) Range: 3.5-5.1 34-Tnc-864445:43 Aldosterone, Urine Comments: PATIENT NOT FASTINGPERFORMED BY: [facility] Cwdnjp1256 [facility] [id number] BY: [facility] [id number] Aldosterone,U, Timed 10.43 {ug/24_hr} (Normal) Range: 0.00-19.00 Comments: Adult Ranges Low Sodium Intake 20.00 - 80.00 Normal Sodium Intake 0.00 - 19.00 High Sodium Intake 0.00 - 12.00 Aldosterone U,Random 2.98 ug/L (Normal) 66-Stq-566146:43 Cortisol, Urinary Free Comments: PATIENT NOT FASTINGPERFORMED BY: [employer] [address] [place] [address] [id number] BY: [employer] [id number] Cortisol,F,ug/24hr,U 42 {ug/24_hr} (Normal) Range: 0-50 Cortisol,F,ug/L,U 12 ug/L (Normal) :43 Potassium, 24 hr Urine Comments: PATIENT NOT FASTINGPERFORMED BY: [employer] [place] [address] [id number] BY: [employer] [id number] Information: C:SHARON [id number] START 5@6AM FI MARNIE Potassium, Urine 119.4 {mmol/24_hr} Range: 25.0-125.0 (Normal) Potassium, Urine 34.1 mmol/L (Normal) Renin Activity, Plasma <0.15 {ng/mL/hr} Comments: PATIENT NOT FASTINGPERFORMED BY: [employer]com[address] [id number] Information: [id number] :48 (Normal) Comments: Adult Normal Salt Intake: Upright 1.31 - 3.95 Supine 0.15 - 2. 33 . Salt Excretion (Na mEq/24 hr): Na= 0 - 30 8.82 - 23.86 Na= 30 - 75 4.09 - 7.73 Na= 75 - 150 1.44 - 2.80 Na= >150 0.39 - 1.31 :58 Aldosterone LCMS, Serum Comments: PATIENT NOT FASTINGPERFORMED BY: [employer]versiones.com[address] [id number] BY: LabCore[place] [address] [facility] [id number] Aldosterone 6.0 ng/dL (Normal) Range: 0.0-30.0 : Magnesium, Serum 2.1 mg/dL (Normal) Comments: PATIENT NOT FASTINGPERFORMED BY: [facility]CoRo[facility] HospitalIetwnh8675 [facility] [id number] BY: [facility] [id number] Range: 1.6-2.6 : TSH 2.160 {uIU/mL} Comments: PATIENT NOT FASTINGPERFORMED BY: [facility] Wkgyaa7537 [facility] [id number] BY: [facility] [id number] Inf ormation: [id number] 58 (Normal) Range: 0.450-4.500 8-Fhg-651979:00 Comprehensive Metabolic Profil Comments: Test performed at:[facility] Keslaommlp8043 [place], [place] [id number] GAP 6 (Normal) Range: 5-15 CO2 32.0 [...] 7-18 GLU 92 mg/dL (Normal) Range: 70-110 4-Qps-028587:00 Lipid Profile Comments: Test performed at:[facility] Uuljcsgfap[address] [place], [place] [id number] VLDL 14 mg/dL (Normal) Range: 5-40 LDL [...] 200-240 mg/dL Borderline >240 mg/dL High Risk 55-Bck-28755:14 Urinalysis, Office (62488) UA - LEUKOCYTE ESTERASE Trace (Normal) UA - NITRITE Negative (Normal) URINE UROBILINGN JEANNINE TIMED Normal mg/dL (Normal) UA - PROTEIN Negative mg/dL (Normal) UA - PH 7.0 (Normal) UA - BLOOD Non Hemolyzed Trace (Normal) UA - SPECIFIC GRAVITY 1.020 (Normal) UA - KETONES Negative mg/dL (Normal) UA - BILIRUBIN Negative (Normal) UA - GLUCOSE Negative (Normal) 37-Jfp-04395:55 URINE YAIR CULTURE-JEANNINE COL Comments: PATIENT NOT FASTINGPERFORMED BY: [facility] Hhxqzl6453 [facility] [id number] Information: SRC: URETHRA COUNT (21094) Result 1 MUG (Normal) Comments: Mixed urogenital flora1,000 Colonies/mL Urine Culture,Comprehensive Final report (Normal) 00-Aiv-149710:48 URINE YAIR CULTURE-JEANNINE COL Comments: PATIENT NOT FASTINGPERFORMED BY: [facility] Bhcstc9209 [facility] [id number] Information: SRC:[facility] [id number] COUNT (68201) Antimicrobial MIHEAD (Normal) Comments: S = Susceptible; [...] mL (Abnormal) Urine Final report Culture,Comprehensive (Abnormal) 65-Emk-762400:56 Urinalysis, Office (02158) UA - LEUKOCYTE ESTERASE Large (Normal) UA - NITRITE Negative (Normal) URINE UROBILINGN JEANNINE TIMED Normal mg/dL (Normal) UA - PROTEIN 30 mg/dL (Normal) UA - PH 7.0 (Normal) UA - BLOOD ++ (Abnormal) UA - SPECIFIC GRAVITY 1.010 (Normal) UA - KETONES Negative mg/dL (Normal) UA - BILIRUBIN Negative (Normal) UA - GLUCOSE Negative (Normal) 1-Oum-936809:54 URINE YAIR CULTURE-JEANNINE COL Comments: PATIENT NOT FASTINGPERFORMED BY: [facility]6370 [facility] [id number] Information: SRC:[facility] S38599 COUNT (72007) Result 1 ECV (Abnormal) Comments: Escherichia coli, [...] S Urine Final report Culture,Comprehensi (Abnormal) ve 0-Rwz-489434:18 Urinalysis, Office (25444) UA - LEUKOCYTE ESTERASE Large (Normal) UA - NITRITE Negative (Normal) URINE UROBILINGN JEANNINE TIMED Normal mg/dL (Normal) UA - PROTEIN 100 mg/dL (Normal) UA - PH 7 (Normal) UA - BLOOD Hemolyzed Large (Normal) UA - SPECIFIC GRAVITY 1.025 (Normal) UA - KETONES Negative mg/dL (Normal) UA - BILIRUBIN Negative (Normal) UA - GLUCOSE Negative (Normal) 26-Vde-106394:40 POTASSIUM SERUM (27006) Comments: today; PATIENT NOT FASTINGPERFORMED BY: [facility] Vzmxio1859 [facility] [id number] Information: [id number] Potassium, Serum 3.9 mmol/L (Normal) Range: 3.5-5.2 6-Rfh-864862:10 Comprehensive Metabolic Profil Comments: Test performed at:[facility] Rckbwksygw95[address] [place] [address] GAP 4 (Abnormal) Range: 5-15 CO2 31.0 [...] 7-18 GLU 89 mg/dL (Normal) Range: 70-110 5-Foa-643068:10 Lipid Profile Comments: Test performed at:[facility] Upumiahjhg9[address] [place], [place] [address] VLDL 19 mg/dL (Normal) Range: 5-40 LDL [...] Borderline >240 mg/dL High Risk :15 Magnesium (64631) Comments: today; PATIENT NOT FASTINGPERFORMED BY: [employer]PLUS Int [facility] Xfyoxf1939 [facility] [id number] Magnesium, Serum 2.2 mg/dL (Normal) Range: 1.6-2.6 :15 Potassium Serum (12252) Comments: today; PATIENT NOT FASTINGPERFORMED BY: [employer] Int [facility] Wasikv9885 [facility] [id number] Information: [id number] Potassium, Serum 3.8 mmol/L (Normal) Range: 3.5-5.2 :48 Urinalysis, Office (84584) UA - LEUKOCYTE ESTERASE Negative (Normal) UA - NITRITE Negative (Normal) URINE UROBILINGN JEANNINE TIMED Normal mg/dL (Normal) UA - PROTEIN Negative mg/dL (Normal) UA - PH 7.0 (Normal) UA - BLOOD Non Hemolyzed Trace (Normal) UA - SPECIFIC GRAVITY 1.010 (Normal) UA - KETONES Negative mg/dL (Normal) UA - BILIRUBIN Negative (Normal) UA - GLUCOSE Negative (Normal) 23-Vyv-16363:29 URINE YAIR CULTURE-JEANNINE COL Comments: PATIENT NOT FASTINGPERFORMED BY: JUAN [facility] Roozsp7921 [address] [place] [id number] Information: SRC:UR [id number]; will review at appt. today COUNT (81024) Result 1 MUG (Normal) Comments: Mixed urogenital flora1,000 Colonies/mL Urine Culture,Comprehensive Final report (Normal) :09 Urinalysis, Office (33337) UA - LEUKOCYTE ESTERASE Negative (Normal) UA [...] CHOL 169 mg/dL (Normal) Comments: <200 mg/dL Abbsqcwjm583-266 mg/dL Borderline>240 mg/dL High Risk :33 Lipid Panel (08839) Comments: PATIENT WAS FASTINGPERFORMED BY: Inversiones.comMonmouth Medical CenterEqyyqn0758 [facility] [id number] Information: [id number] LDL/HDL Ratio 1.6 {ratio_units} (Normal) Range: 0.0-3.2 LDL Cholesterol Calc 96 mg/dL (Normal) Range: 0-99 VLDL Cholesterol Damon 12 mg/dL (Normal) Range: 5-40 HDL Cholesterol 59 mg/dL (Normal) Comments: According to ATP-III Guidelines, HDL-C >59 mg/dL is considered anegative risk factor for CHD. Triglycerides 59 mg/dL (Normal) Range: 0-149 Cholesterol, Total 167 mg/dL (Normal) Range: 100-199 0-Reg-401768:33 HEPATIC FUNCTION PANEL Comments: PATIENT WAS FASTINGPERFORMED BY: Inversiones.comMonmouth Medical CenterLwfget2363 [facility] [id number] (60599) ALT (SGPT) 36 [iU]/L (Abnormal) Range: 0-32 AST (SGOT) 29 [iU]/L (Normal) Range: 0-40 Alkaline Phosphatase, S 76 [iU]/L (Normal) Range: 39-117 Bilirubin, Direct 0.20 mg/dL (Normal) Range: 0.00-0.40 Bilirubin, Total 0.8 mg/dL (Normal) Range: 0.0-1.2 Albumin, Serum 4.1 g/dL (Normal) Range: 3.5-5.5 Protein, Total, Serum 6.6 g/dL (Normal) Range: 6.0-8.5 :27 METABOLIC PANEL, Comments: health screening labs; PATIENT WAS FASTINGPERFORMED BY: [place].com[place] 6450670 [facility] [id number] Information: [id number] COMPREHENSIVE (01866) ALT (SGPT) 19 [iU]/L (Normal) Range: 0-32 [...] Glucose, Serum 88 mg/dL (Normal) Range: 65-99 17-Tbs-24880:27 LIPID PANEL (79331) Comments: PATIENT WAS FASTINGPERFORMED BY: LabCoMonmouth Medical CenterVqlbaf7824 [facility] [id number] LDL/HDL Ratio 3.7 {ratio_units} (Abnormal) Range: 0.0-3.2 HDL Cholesterol 54 mg/dL (Normal) Comments: According to ATP-III Guidelines, HDL-C >59 mg/dL is considered anegative risk factor for CHD. LDL Cholesterol Calc 198 mg/dL (Abnormal) Range: 0-99 VLDL Cholesterol Damon 15 mg/dL (Normal) Range: 5-40 Triglycerides 74 mg/dL (Normal) Range: 0-149 Cholesterol, Total 267 mg/dL (Abnormal) Range: 100-199 13-Jut-18957:30 ABDOMEN/PELVIS WITHOUT CONT Radiology Report See Note [...] Slade M.D.January 18, 2013 at 10:24:09 AM [id number] Signed GP/GP If you are the referring physician and would like to consult with theradiologist who provided this interpretation, please contact [place]ia Thomas at [phone]. If this radiologist is unavailable, youwill be directed to another radiologist t o assist. If you are a patient with a question regarding this report, pleasecontactyour referring physician directly. Professional Interpretation Provided By: [employer], Phone ,Fax These documents contain legally protected [...] destructionofthese documents. Dictated on 01/18/13 0938 by Chuyita PARDO,Tonyranscribed on 01/18/13 1026 by ITS IMPORTSign by Chuyita PARDO,Armen on 01/18/13 1027 Sign b y: Armen Slade MD 92-Gfv-95277:08 Metabolic Panel, Comments: today; PATIENT NOT FASTINGPERFORMED BY: LabCoMonmouth Medical CenterJxvggn6557 [facility] [id number] Information: [id number] Comprehensive (63463) ALT (SGPT) 29 [iU]/L (Normal) Range: 0-32 [...] mg/dL (Abnormal) Range: 65-99 :19 Urinalysis, Office (54930) UA - BILIRUBIN Negative (Normal) UA - [...] 200-240 mg/dL Borderline >240 mg/dL High Risk 1-Oty-452717:26 BILAT SCRN DIGITAL & CAD Radiology Report See Note (Normal) Comments: Exam Number: [id number] AMMOGRAPHY - BILATERAL SCREENING INDICATION:Routine annual screening [...] a Res ultCode to this exam. ADDENDUM: [id number] HPBI/MDS Reported By: DAVION BA M.D. 5-Tmt-608977:26 DEXA BONE DENSITY STUDY (HP) Radiology Report See Note (Normal) Comments: Exam Number: [id number] LINICAL:This is a 55-year-old female patient for postmenopausal screening. EXAMINATION:DUAL ENERGY X-RAY ABSORPTIOMETRY / DEXA. TECHNIQUE:Bone Density Measurements (BMD) of lumbar spine and bilateral hips were obtained using a [employer] scanner.. COMPARISON:Comparison is made with prior examination [...] :40 PTT 29.1 s (Normal) Range: 25.2-36.2 70-Gke-697618:10 Urinalysis, Office (97661) UA - LEUKOCYTE ESTERASE Trace (Normal) UA - NITRITE Negative (Normal) URINE UROBILINGN JEANNINE TIMED 2 mg/dL (Normal) UA - PROTEIN Negative mg/dL (Normal) UA - PH 6.5 (Normal) UA - BLOOD Negative (Normal) UA - SPECIFIC GRAVITY 1.005 (Normal) UA - KETONES Negative mg/dL (Normal) UA - BILIRUBIN Negative (Normal) UA - GLUCOSE Negative (Normal) 38-Xmo-399185:04 URINE YAIR CULTURE-JEANNINE COL Comments: PATIENT NOT FASTINGPERFORMED BY: [facility] Pcpvvs8862 [facility] [id number] Information: SRC: URINE COUNT (37740) Antimicrobial MIHEAD (Normal) Comments: S = Susceptible; [...] mL (Normal) Urine Final report (Normal) Culture,Comprehensive 18-Krw-111274:03 Urinalysis, Office (13557) UA - LEUKOCYTE ESTERASE Small (Normal) UA - NITRITE Negative (Normal) URINE UROBILINGN JEANNINE TIMED Normal mg/dL (Normal) UA - PROTEIN Negative mg/dL (Normal) UA - PH 7.0 (Normal) UA - BLOOD Non Hemolyzed Moderate (Normal) Comments: Large UA - SPECIFIC GRAVITY 1.010 (Normal) UA - KETONES Negative mg/dL (Normal) UA - BILIRUBIN Negative (Normal) UA - GLUCOSE Negative (Normal) 8-Gbi-596719:19 Urinalysis, Office (42048) UA - LEUKOCYTE ESTERASE Negative (Normal) UA - NITRITE Negative (Normal) URINE UROBILINGN JEANNINE TIMED 2 mg/dL (Normal) UA - PROTEIN Negative mg/dL (Normal) UA - PH 7.0 (Normal) UA - BLOOD Negative (Normal) UA - SPECIFIC GRAVITY 1.010 (Normal) UA - KETONES Negative mg/dL (Normal) UA - BILIRUBIN Negative (Normal) UA - GLUCOSE Negative (Normal) 79-Qsh-042787:04 Urinalysis, Office (00416) UA - BILIRUBIN Negative (Normal) UA - [...] Plan of Care Name Dates Details Instructions Chest pain on breathing : Follow up [...] : Follow up in 2 [facility] with [facility] Indication: Nausea alone Wheezing : Follow [...] not specified Planned Observations Metabolic Panel, Comprehensive (58317)Indication: Hypercholesteremia On: 26-Ulf-23844:58 Request LIPID PANEL (50388)Indication: Hypercholesteremia On: :55 Request D-Dimer (55903)Indication: Chest pain on breathing On: 79-Xxq-504962:20 Request Comments: STAT PKFMD-PGXQSTEKAJI-JWKBD (85635)Indication: Elevated liver enzymes On: 19-Jul-20189:16 Request Parathyroid Hormone-related Peptide (PTH-rP) (39824)Indication: Hypercalcemia On: :42 Request CBC, Platelets & Auto Diff (91100)Indication: Headache On: 8-Ofw-294575:55 Request Lipid Panel (45213)Indication: Headache On: 1-Eba-182368:53 Request TSH (91233)Indication: Headache On: 1-Qdc-591455:52 Request URINALYSIS, W/ MICRO (41867)Indication: Hematuria On: 9-Ckb-987126:52 Request CALCIFEDIOL (36696)Indication: Osteoporosis On: :02 Request Comments: Aug 2017 CBC, Platelets & Auto Diff (61419)Indication: GERD (gastroesophageal reflux disease) On: :01 Request Comments: Aug 2017 Metabolic Panel, Comprehensive (34483)Indication: Hypercholesteremia On: : Request Comments: Aug 2017 Lipid Panel (16739)Indication: Hypercholesteremia On: : Request Comments: Aug 2017 LIPID PANEL (80974)Indication: Hypercholesteremia On: :39 Request Comments: in six months (approximately) METABOLIC PANEL, COMPREHENSIVE (74295)Indication: Hypercholesteremia On: :39 Request Aldosterone,24-Hour Urine (92860)Indication: Hypokalemia On: :37 Request Comments: pt to take salt load by salt food POTASSIUM SERUM (37669)Indication: Hypokalemia On: :34 Request POTASSIUM SERUM (05844)Indication: Hypokalemia On: 38-Dlf-135818:40 Request MAGNESIUM (43183)Indication: Hypokalemia On: :55 Request POTASSIUM SERUM (47356)Indication: Hypokalemia On: :54 Request Comments: 2 weeks ALDOSTERONE (27994)Indication: Hypokalemia On: :46 Request RENIN (96172)Indication: Hypokalemia On: :46 Request TSH (THYROID STIMULATING HORMONE) (32934)Indication: Hypokalemia On: :45 Request POTASSIUM URINE (27403)Indication: Hypokalemia On: :44 Request Comments: 24 hour urine CORTISOL FREE (61967)Indication: Hypokalemia On: :44 Request Comments: 24 hour urine Aldosterone,24-Hour Urine (62689)Indication: Hypokalemia On: :43 Request POTASSIUM SERUM (72968)Indication: Hypokalemia On: :22 Request METABOLIC PANEL, COMPREHENSIVE (56823)Indication: Hypercholesteremia On: 96-Mkw-665081:22 Request Comments: in six months (approximately) LIPID PANEL (04652)Indication: Hypercholesteremia On: :22 Request Comments: in six months (approximately) METABOLIC PANEL, COMPREHENSIVE (78114)Indication: Hypercholesteremia On: :50 Request Comments: in six months (approximately) LIPID PANEL (55205)Indication: Hypercholesteremia On: :50 Request Comments: in six months (approximately) METABOLIC PANEL, COMPREHENSIVE (15282)Indication: Hypercholesteremia On: :45 Request LIPID PANEL (62295)Indication: Hypercholesteremia On: :45 Request CBC WITH MANUAL DIFF (33347)Indication: Hypercholesteremia On: :45 Request URINE YAIR CULTURE-IDENTIFICATN (05779)Indication: Hematuria, unspecified On: :36 Request CALCULUS CHEMICAL QUANTI (93078)Indication: History of kidney stones On: 48-Tvu-37932:28 Request METABOLIC PANEL, COMPREHENSIVE (74138)Indication: Elevated blood-pressure reading without diagnosis of hypertension On: 75-Cgv-452684:15 Request LIPID PANEL (96554)Indication: Elevated blood-pressure reading without diagnosis of hypertension On: 09-Nbj-292508:15 Request CALCIFIDIOL (23017) VIT D 25Indication: Osteoporosis On: 50-Vrk-94269:00 Request TSH (91641)Indication: Stress reaction On: :56 Request URINALYSIS, W/ MICRO (20626)Indication: Elevated blood-pressure reading without diagnosis of hypertension On: :56 Request LIPID PANEL (88782)Indication: Elevated blood-pressure reading without diagnosis of hypertension On: :55 Request CBC WITH MANUAL DIFF (85614)Indication: Elevated blood-pressure reading without diagnosis of hypertension On: :55 Request METABOLIC PANEL, COMPREHENSIVE (53838)Indication: Osteoporosis On: :55 Request URINE YAIR CULTURE-IDENTIFICATN (72089)Indication: Hematuria, unspecified On: 60-Apd-554901:04 Request URINALYSIS (60809)Indication: Hematuria On: 0-Klk-625183:09 Request Lipid Panel (69264)Indication: Screening for lipid disorders On: 9-Szm-800840:09 Request CALCIFIDIOL (68701) VIT D 25Indication: Osteoporosis On: 5-Mps-152845:08 Request CBC (Auto) (74731)Indication: Osteoporosis On: :07 Request Metabolic Panel, Comprehensive (80954)Indication: Osteoporosis On: :07 Request Planned Encounters Medical; 3 Month FU - On: 19-Oct-2018 8:30 Comprehensive Internal Medicine Mylene Craig CNP, CNP, Mary E Planned Procedures COMPUTED TOMOGRAPHY ANGIOGRAPHY OF On: 04-Aug-2018 Intent CHEST FOR PULMONARY EMBOLISM (90897)By: Katarina Bourgeois CHEST XRAY, PA & LATERAL (79521)By: On: 04-Aug-2018 Intent Katarina Bourgeois Ultrasound - LiverBy: Kiara GRIFFITH, On: 10-Dec-2017 Intent Mylene León CNP SCREENING DIGITAL TOMOSYNTHESIS OF On: 10-Dec-2017 Intent BREAST (45366)By: Mylene Craig CNP, CNP, Mary E Flu Vaccine (Quadrivalent) 59065By: On: 27-Aug-2017 Intent Mylene Craig CNP, CNP, Mary E Comments: lot: [id number]: 03/28/18ite/route: L analilia, IMamt: 0.5mlVIS and ABN signed when applicableSamanthafabricio [facility] Ear Irrigation (09020)By: Kiara On: 27-Aug-2017 Intent Mylene GRIFFITH CNP, Mary E Comments: IrrigationSite- L and RAmount/Color/Quality - medium amount removed from L ear and minimal from RTolerated wellChelsfabricio [facility] Bone Density StudyBy: iKara GRIFFITH, On: 14-May-2017 Intent Mylene León CNP Comments: Repeat Oct 2017 MAMMOGRAM, SCREENING, BOTH BREAST On: 25-Aug-2016 Intent (08797)By: Manjit Musa MD Flu Vaccine (Quadrivalent) 82665Mv: On: 25-Aug-2016 Intent Manjit Musa MD Comments: Lot #[id number]/30/17ite-L dltd, IMDose prefilled syringegiven by:JULIUS CardenasVIS and ABN signed COMP EYE EXAMINATION, ESTAB PATIENT On: 13-Jan-2016 Intent (76734)By: Mylene Craig CNP, CNP, Mary E CT - Abdomen & Pelvis (Without On: 25-Nov-2015 Intent Contrast)By: Jennifer Spencer DO Comments: tonight - stat Toradol Injection, 30 mg On: 11-Nov-2015 Intent (J1885)By: Mylene Craig CNP, CNP, Mary E Wax CurettesBy: Yuki Sharp MD On: 16-Sep-2015 Intent Ear Irrigation (53392)By: Lila On: 16-Sep-2015 Intent Yuki PARDO LIMITED GALLIUM SCAN FOR On: 22-Apr-2015 Intent LOCALIZATION OF ABSCESS (05514)By: Comments: head and neck Yuki Sharp MD Echo CompleteBy: Yuki Sharp MD On: 25-Mar-2015 Intent MAMMOGRAM, SCREENING, BOTH BREAST On: 25-Mar-2015 Intent (37634)By: Yuki Sharp MD DEXA SCAN AXIAL SKELETON (26382)By: On: 25-Mar-2015 Intent Yuki Sharp MD Nuclear Medicine - Bone ScanBy: On: 25-Mar-2015 Intent Yuki Sharp MD EKG (68498)By: Yuki Sharp MD On: 25-Mar-2015 Intent Comments: see scanned document of test done to see results reviewed today with patient IMMUNIZ ADMNIN, 1 VAC, SNGL/COMBO On: 25-Mar-2015 Intent (77199)By: Yuki Sharp MD [place] VACC, [place] (12842)By: Lila On: 25-Mar-2015 Intent Yuki PARDO Toradol Injection, 30 mg On: 15-Oct-2014 Intent (J1885)By: Mylene Craig CNP Comments: lot 19-114-cglck 10.10.1630mg right gmIMas, MULTIMEDIA SERVICES MANAGERMylene Nick CNP SPECIMEN HANDLING/TRANSPORT On: 15-Oct-2014 Intent (09066)By: Mylene Craig CNP, CNP, Mary E MAMMOGRAM, SCREENING, BOTH BREAST On: 05-Sep-2014 Intent (32820)By: Yuki Sharp MD Flu Vaccine (Quadrivalent) 63343Oe: On: 10-Aug-2014 Intent Adrienne Tirado LPN ADMINISTRATION OF INFLUENZA VIRUS On: 10-Aug-2014 Intent VACCINE (G0008)By: Candida MADRID, Comments: X23SP6.15prefilled syringeL Dltd, IMAS, LPNABN and VIS signed Adrienne Rocephin Injection, 2 Gram On: 09-Aug-2014 Intent (J0696)By: Corine Rice DO Comments: 041239m8.1.172 gmbilateral gm IMAS, LPNABN and VIS signed Wax CurettesBy: Corine Rice DO On: 09-Aug-2014 Intent Ear Irrigation (18883)By: Dwayne On: 09-Aug-2014 Corine Hunt DO Comments: b/lmoderate amount of yellow wax removed bilaterallywax curette used Ultrasound - RenalBy: Lila PARDO, On: 26-Mar-2014 Intent Yuki Martin Radiology - KUBBy: Mylene Craig CNP On: 21-Mar-2014 Intent E Mylene Craig CNP Comments: today Toradol Injection, 30 mg On: 21-Mar-2014 Intent (J1885)By: Mylene Craig CNP, CNP, Mary E SPECIMEN HANDLING/TRANSPORT On: 21-Mar-2014 Intent (99441)By: Mylene Craig CNP, CNP, Mary E IMMUNIZ ADMNIN, 1 VAC, SNGL/COMBO On: 27-Jun-2013 Intent (03754)By: Yuki Sharp MD FLU VAC, SPLIT, >3 YEARS, INTRAMUSC On: 27-Jun-2013 Intent (15627)By: Yuki Sharp MD MAMMOGRAM, SCREENING, BOTH BREASTS On: 27-Jun-2013 Intent (60105)By: Yuki Sharp MD DXA, BONE DENSITY, AXIAL SKELETON On: 27-Jun-2013 Intent (61035)By: Yuki Sharp MD Eprescribed prescriptions On: 27-Jun-2013 Intent (G8553)By: Ines Jensen LPN MAMMOGRAM, SCREENING, BOTH BREASTS On: 06-Jun-2013 Intent (44326)By: Yuki Sharp MD DXA, BONE DENSITY, AXIAL SKELETON On: 06-Jun-2013 Intent (95072)By: Yuki Sharp MD Phenergan Injection, up to 50 mg On: 18-Jan-2013 Intent (J2550)By: Mylene Craig CNP, CNP, Mary E CT - Abdomen & Pelvis Stone On: 18-Jan-2013 Intent ProtocolBy: Mylene Craig CNP Comments: today Mylene GRIFFITH Toradol Injection, 30 mg On: 18-Jan-2013 Intent (J1885)By: Mylene Craig CNP, CNP, Mary E Aerosol Treatment (92026)By: Kiara On: 31-Aug-2012 Intent Mylene GRIFFITH CNP, Mary E Bone Density StudyBy: Lila PARDO, On: 25-Apr-2012 Intent Yuki Martin IMMUNIZ ADMNIN, 1 VAC, SNGL/COMBO On: 27-Jul-2011 Intent ([id number])By: Yuki Sharp MD FLU VAC, SPLIT, >3 YEARS, INTRAMUSC On: 27-Jul-2011 Intent ([id number])By: Yuki Sharp MD TDAP VACCINE >7 IM ([id number])By: Kiara On: 20-Mar-2010 Intent Mylene GRIFFITH CNP, Mary E Comments: Lot #[id number]-left deltoidgiven by:[facility] EKG ([id number])By: Corine Rice DO On: 09-May-2009 Intent Comments: [...] : DISCONTINUED - CBC & PLATELETS (AUTO) (85180) Indication: Bruising Elevated liver enzymes : DISCONTINUED - HEPATIC FUNCTION PANEL (49388) Indication: Elevated liver enzymes Hypercholesteremia : How to access health information online Indication: Hypercholesteremia Hypercholesteremia : How to access health information online - Detail Indication: Hypercholesteremia Hypercholesteremia : Patient Instructions Indication: Hypercholesteremia Osteoporosis : DISCONTINUED - DEXA SCAN AXIAL SKELETON (43477) Indication: Osteoporosis Hypercholesteremia : DISCONTINUED - METABOLIC PANEL, COMPREHENSIVE (86368) Indication: Hypercholesteremia Hematuria : How to access [...] Advance Directives Name Dates Details Immunization Registry [place] - Effective on 07/19/2018. Effective: 19-Jul-2018 Expiration date unspecified Encounters Office Visit On: 04-Aug-2018 11:53 Encounter Reason: [...] for chronic medical issues: Gallbladder out in December [place]. Pt noted hips improved at night off of atrovastatin, was taking statin at hsEncounter Diagnosis: Hypercholesteremia, BMI 29.0-29.9,adult, Nonsmoker, Elevated liver [...] tests include other (labs). Note for Discuss paul shay results: Had repeat potassium drawn as [...] HEART MURMUR (785.2), WWV V73.21 (Renamed from [facility]), Osteoporosis (733.00), OVERWEIGHT (278.02), Neck pain (723.1) [...] was 2009Encounter Diagnosis: WWV V73.21 (Renamed from [facility]), Osteoporosis (733.00), Hypercholesterolemia (272.0), HEART MURMUR (785.2), [...] Nausea alone (787.02), WWV V73.21 (Renamed from [facility]), Headache, Tension (307.81), LOW BACK PAIN (724.2), [...] (733.00), GERD (530.81), WWV V73.21 (Renamed from [facility]) [facility] Office Visit On: 02-Nov-2011 [...] (530.81), Rosacea (695.3), WWV V73.21 (Renamed from [facility]), Stress Reaction (308.4) [facility] Office [...] End: 10-Dec-2008 12:12 [facility] Payers [facility] ANA Burrows; art guarantor
--- OUTSIDE RECORDS SUMMARY | 2018-11-03 01:14 | XMS RPT_ITS | Continuity of Care Document ---
:1955 Author Organization [facility] Address [address] [place] [address] Phone Care Team Providers Name Role Phone Mylene Craig CNP Unavailable Dr. 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 She checked with Prolia and cost about 600.00 each Takes D3 45004 weekly with alandronate (she stopped alandronate Oct [...] Quantity: 12 {Tablet} Refills: 1 Ordered:15-Apr-2018 Elea DESIGN DRAFTER, Mylene Rust DESIGN DRAFTER, Mylene Duenas Start : 15-Apr-2018 Active Align 4 MG Oral Capsule 1 (one) Capsule daily for 0 days Quantity: 30 {Capsule} Refills: 0 Ordered:13-Sep-2018 Kiara GRIFFITH, Mylene Rust [facility], Mylene Duenas Start : 13-Sep-2018 Active Atorvastatin Calcium 10 MG Oral Tablet 1 Tablet daily for 90 days Quantity: 90 {Tablet} Refills: 3 Ordered:19-Jul-2018 Kiara GRIFFITH, Mylene Rust [facility], Mylene Duenas Start : 19-Jul-2018 Active Calcium 500 MG Oral Capsule daily (500 MG) Active Claritin 10 MG Oral Capsule 1 (one) Capsule daily for 0 days Quantity: 30 {Capsule} Refills: 3 Ordered:13-Sep-2018 Kiara GRIFFITH, Mylene Rust [facility], Mylene Duenas Start : 13-Sep-2018 Active Coenzyme [...] Quantity: 14 {Tablet} Refills: 0 Ordered:28-Apr-2017 Elea DESIGN DRAFTER, Mylene Farmera DESIGN DRAFTER, Yesica Start : 28-Apr-2017 End : 05-May-2017 Inactive CIPRO, 250MG (Oral Tablet) 1 (one) Tablet bid for 3 days Quantity: 6 {Tablet} Refills: 0 Ordered:02-Oct-2009 Elea DESIGN DRAFTER, Mylene Farmera DESIGN DRAFTER, Yesica Start : 02-Oct-2009 End : 05-Oct-2009 [...] Refills: 0 Ordered:08-Jan-2011 Kiara GRIFFITH, Mylene Rust [facility], Mylene Duenas Start : 08-Jan-2011 End : [...] Quantity: 8 {Tablet} Refills: 0 Ordered:02-Oct-2009 Kiara DESIGN DRAFTER, Mylene Rust [facility], Mylene Duenas Start : 02-Oct-2009 End : 03-Oct-2009 Inactive Vitamin D (Cholecalciferol) 1000 UNIT Oral Capsule 5 Capsule daily for 0 days Quantity: 30 {Capsule} Refills: 0 Ordered:15-Apr-2018 Adrienne Tirado LPN Start : 10-Dec-2017 End : 15-Apr-2018 Inactive Vitamin D3 59637 UNIT Oral Capsule 1 (one) Capsule Capsule [...] End : 19-Jul-2018 Discontinued CALCIUM + D, 677-531DB-JJHR (Oral Tablet) 1 qd for 0 days Refills: 0 Ordered:26-Mar-2014 SHANKAR Cleary End : 26-Mar-2014 Discontinued Comments:This order discontinued per [facility]. Calcium 1500 End : 19-Jul-2018 Discontinued CELEXA, 10MG (Oral Tablet) 1 Tablet daily for 0 days Quantity: 90 {Tablet} Refills: 3 Ordered:26-Mar-2014 Yuki Sharp MD Start : 26-Mar-2014 End : 26-Mar-2014 Discontinued CORTISPORIN, 3.5-49009-8 (Otic Solution) 4 Metric Drop tid for 0 days Quantity: 1 {Bottle} Refills: 0 Ordered:18-Dec-2014 Alec Tirado LPNa Start : 24-Oct-2014 End : 18-Dec-2014 Discontinued Cranberry End : 19-Jul-2018 Discontinued EXTRA STRENGTH PAIN RELIEVER, 230-369-23QS (Oral Tablet) 2 qd prn headaches (250-250-65 [...] Quantity: 90 {Capsule} Refills: 0 Ordered:25-Aug-2016 Millyrb JLUIUS Adrienne Start : 25-Aug-2016 End : 27-Aug-2017 [...] Status: Inactive as of 27-Aug-2017 Vaccine for xukyuelbaw-qvjlnds-dgaryufyx with poliomyelitis (Z23, V06.3) Status: Inactive as [...] Echocardiogram Complete Result: Comments: See Note; NOTES: [facility] Cardiovascular Services [address] [place] [address] Echo Complete 09/07/18 1511 MR#: [id number] Acct: [id number] Name: SHAVON BURROWS Rep #: [id number] : 1955 63 From: Chidi Pagan MD Attending Dr: Mylene Craig NP Status: REG CLI Ordering Dr: Mylene Craig NP-C Date: 09/07/18 Location: [facility] Sex: F C Admitted: Reason For [...] Physician: Mylene Craig Performed By: Gissel Coleman [facility] S 09/07/18 1620 Date Chidi Pagan MD CC: Mylene Craig NP Date Dictated: 09/07/18 1511 Date Transcribed: 09/07/18 1620 Landfill Gas Collection Operator: Signed 06-Aug-2018 Chest 1 View (Portable) Result: Comments: See Note; NOTES: [facility] Imaging Services [address] [place] [address] Chest 1 View (Portable) MR#: [id number] Acct: [id number] Name: YARELIS BURROWS Rep #: [id number] : 1955 F 63 From: Maico Lehman MD PCP: Mylene Craig NP Status: REG ER Study: Chest 1 View (Portable) Date of Exam: 08/06/18 Exam# [id number] Ordering Dr: Laurie Garber MD STUDY: X [...] CC: Mylene Craig NP; Laurie Garber MD Landfill Gas Collection Operator: Signed 04-Aug-2018 Chest PA and Lateral Result: Comments: See Note; NOTES: [facility] Imaging Services [address] [place] [address] Chest PA and Lateral MR#: [id number] Acct: [id number] Name: YARELIS BURROWS Rep #: [id number] : 1955 F 63 From: Maico Lehman MD PCP: Mylene Craig NP Status: REG CLI Study: Chest PA and Lateral Date of Exam: 08/04/18 Exam# [id number] Ordering Dr: Katarina Bourgeois MAIL DELIVERER-Iram STUDY: X-RAY CHEST REASON FOR EXAM: Female, [...] , CC: Mylene Craig NP; TOMEKA Bourgeois Landfill Gas Collection Operator: Signed 10-Mar-2018 OT D/C Summary Result: Comments: See Note; NOTES: [facility] Occupational Therapy [facility] [place] [address] Fax REHABILITATION SERVICES DIS CHARGE SUMMARY MR#: [id number] Acct: [id number] Name: YARELIS BURROWS Rep #: [id number] : 1955 62 From: Marlene Sexton Referring [...] completed on date and is as follows; rn spine 54, 86; lateral R 17, L 15; [...] Resume Hobbies Goal:: Yarelis to increase R rn spine to that of L rn spine 2/3 trials 75% if the time to [...] R MF vs L MF are similar. Flat Hammerer is to continue to progress through use and strengthening protocol through HEP. SHe is to call with questions/concerns. - D/C Informati on If there are questions or concerns regarding this patient's occupational therapy, please fell free to call me at [phone]. Thank you for the referral of this patient. Sincerely, Marlene Calvert rs <Electronically signed by Marlene Sexton > 03/10/18 1402 CC: Mylene Craig MAIL DELIVERER; Chayo Ku DO KMB Signed 02-Feb-2018 Surgery Visit Report Result: Comments: See Note; NOTES: [facility] [address] [place] [address] OFFICE VISIT Date of Service: 02/01/18 MR#: [id number] Acct: [id number] Name: YARELIS RAMON Rep #: [id number] : 1955 Provider: Jenise Julian PA-C Age/Sex: 62/F Location: [facility] Status: Signed Intake Intake Visit Reasons: f/u paulino 01/25/2018 dp Restaurant Management Internship Required: No Is patient in pain?: No [...] Operative Report Result: Comments: See Note; NOTES: [facility] Medical Records Department [address] [place] [address] Operative Report 01/25/18 1134 MR#: [id number] Acct: [id number] Name: ANDREW BURROWS Rep #: [id number] : 1955 62 From: Chidi Mo MD PCP: Mylene Craig NP Status: [facility] Y [place] [facility] Problem List (1) Calculus of gallbladder with chronic cholecystitis without ob struction Status: Acute Report of Operation Date of Procedure: 01/25/18 Pre-Operative Diagnosis: k 80.10 calculus of the gallbladder with chronic cholecystitis without obstruction Post-Operative Diagno sis: Same Surgery/Procedure Performed:: 05478 laparoscopic cholecystectomy Type of Anesthesia:: General Anesthesiologist: David Berry Description of Procedure: Patient was brought into the operating r oom and placed in the supine position. Under excellent general anesthetic the abdomen was sterilely prepped and draped in the usual fashion. Local was injected infraumbilically and dissection was vanessa d down to the fascia the fascia was grasped with a Acra varies needle was placed inside the abdomen [...] Discharge Instruction Result: Comments: See Note; NOTES: [facility] Medical Records Department [address] [place] [address] Instructions for Home/Discharge Instructions 01/25/18 1133 MR#: [id number] Acct: [id number] Name: YARELIS BURROWS Rep #: [id number] : 1955 62 From: Chidi Mo MD [...] With: Chidi Mo MD - Please call [phone] to schedule an appointment. When: 7 days after your surgery. 01/25/18 1133 <Electronically signed by Chidi bishop MD> Date Chidi Mo MD CC: Mylene Craig NP 21-Jan-2018 12 Lead Electrocardiogram Result: Comments: See Note; NOTES: [facility] Cardiovascular Services [address] [place] [address] 12 Lead EKG 01/20/18 0837 MR#: [id number] Acct: [id number] Name: YARELIS BURROWS Rep #: [id number] : 1955 62 From: Anthony Ojeda MD Attending Dr: Chidi Mo MD Status: PRE SDC Ordering Dr: Chidi Mo MD Date: 01/20/18 [place] [facility] Sex: F C Admitted: Test Reason : PRE OP Blood Pressure : / mmHG Vent. Rate : 064 BPM Atrial Rate : 064 BPM P-R Int : 130 ms QRS Dur : 092 ms QT Int : 396 ms P-R-T Axes : 013 028 024 degrees QTc Int : 408 ms Normal sinus rhythm Normal ECG Confirmed by ANTHONY OJEDA MD ([id number]), video news editor CAITLIN NIELSON ([id number]) on 01/21/2018 11:35:11 AM Referred By: Chidi Mo Confirmed By:ANTHONY OJEDA MD 01/21/18 1135 Date Anthony Ojeda MD CC: Mylene Craig MAIL DELIVERER; Chidi Mo MD Signed 31-Dec-2017 SCREENING MAMM (CAD), BILAT Result: Comments: See Note; NOTES: [facility] Imaging Services [address] [place] [address] SCREENING MAMM (CAD), BILAT MR#: [id number] Acct: [id number] Name: YARELIS BURROWS #: [id number] : 1955 F 62 From: Fransisco Aaron MD PCP: Mylene Craig NP Status: REG CLI Study: SCREENING MAMM (CAD), BILAT Date of Exam: 12/31/17 Exam# [id number] Ordering Dr: Mylene Craig MAMMOGR APHY - [...] Service support , CC: Mylene Craig NP Landfill Gas Collection Operator: Signed 30-Dec-2017 Surgery Visit Report Result: Comments: See Note; NOTES: [facility] [address] [place] [address] OFFICE VISIT Date of Service: 12/30/17 MR#: [id number] Acct: [id number] Name: YARELIS LINDSEY Rep #: [id number] : 1955 Provider: Chidi Mo MD Age/Sex: 62/F Location: [facility] Status: Signed Intake Vital Signs12/30/17 Height 5 ft 4 in 12/30/17 Weight: 177 lb Intak e Visit Reasons: cholelithiasis Restaurant Management Internship Required: No Is patient in pain?: No [...] ultrasound was obtained. This was completed at [facility] on 12/16/2017. This showed a [...] person, oriented to place, oriented to time [facility] Head: normocephalic, atraum atic Ears: external [...] 16-Dec-2017 Liver Result: Comments: See Note; NOTES: [facility] Imaging Services [address] [place] [address] Liver MR#: [id number] Acct: [id number] Name: YARELIS BURROWS Rep #: [id number] : F 62 From: Armen Slade MD PCP: Mylene Craig NP Status: REG CLI Study: Liver Date of Exam: 12/16/17 Exam# [id number] Ordering Dr: Mylene Craig STUDY: ABDOMINAL ULTRASOUND [...] Armen Slade MD at 14:34 EST Tel [phone], Service support , CC: Mylene Craig NP Landfill Gas Collection Operator: Signed 09-Dec-2017 OT General Evaluation Result: Comments: See Note; NOTES: [facility] Occupational Therapy [facility] [address] [place] [address] Fax REHABILITATION SERVICES INI TIAL EVALUATION MR#: [id number] Acct: [id number] Name: YARELIS BURROWS Rep #: [id number] : 1955 62 From: Marlene Sexton Referring Dr.: Chayo Ku DO Status: REG R Insurance: [employer] Date: SELF PAY INSURANCE Patient's Visit Information [...] DIP: MF 0-68, L 0-61 - Strength Flat Hammerer: R 39, L 52 Lateral Pinch: R 7, L 11 Tripod Pinch: R 6, L 8 Tip-to-Tip Pinch: R 6, L 4 - Edema Proximal Phalanx: MF R 7.5 cm, L 6.8 cm - Sensation Sensation Comments: WFL; deneis numbness and tingling. - Hand/Wrist Evaluation Total Score of Pain AND Functiona l Sections: 18 - Goals Goal:: Yarelis to increase R rn spine to that of L rn spine 2/3 trials 75% if the time to [...] to be FAXED BACK to us at [phone] for Medicare purposes. Please let me know if there are questions or concerns regarding this plan of care. Physici an Signature: Date: <Electronically signed by Marlene Sexton > 12/09/17 1204 CC: Mylene Craig MAIL DELIVERER; Chayo Ku DO D KMB Signed For Medicare only, by signing this I certify the plan of care. Physicians Signature Date 02-Dec-2017 Orthopedic Visit Report Result: Comments: See Note; NOTES: [facility] [address] [place] [address] OFFICE VISIT Date of Service: 12/02/17 MR#: [id number] Acct: [id number] Name: YARELIS BURROWS Rep #: [id number] : 1955 Provider: Chayo Ku DO Age/Sex: 62/F Location: [facility] Status: Signed Intake Intake Visit Reasons: Right [...] Visit Report Result: Comments: See Note; NOTES: [facility] [address] [place] [address] OFFICE VISIT Date of Service: 11/11/17 MR#: [id number] Acct: [id number] Name: YARELIS BURROWS Rep #: [id number] : 1955 Provider: Chayo Ku DO Age/Sex: 62/F Location: [facility] Status: Signed Intake Intake Visit Reasons: Trigger [...] was likely lacking full extension from the longterm triggering, that now she will need to [...] Operative Report Result: Comments: See Note; NOTES: [facility] Medical Records Department [address] [place] [address] Operative Report 10/20/17 0844 MR#: [id number] Acct: [id number] Name: ANDREW BURROWS Rep #: [id number] : 1955 62 From: Chayo Ku DO PCP: Mylene Craig NP Status: [facility] Y [place] [facility] Report of Operation Date of Procedure: 10/20/17 [...] SCDs placed on her bilateral lower extremity. [place] block was initiated and the right arm [...] with concerns This note was generated with [employer] dictation software. It ma y contain incorrect words, spelling, and punctuation that were not noted in checking the note before signing. 10/28/17 1219 <Electronically signed by Chayo Ku DO> Date ___ Chayo Ku DO CC: Mylene Craig MAIL DELIVERER; Chayo Ku DO Signed 21-Oct-2017 Dexa Bone Density Study () Result: Comments: See Note; NOTES: [facility] Imaging Services [address] [place] [address] Dexa Bone Density Study () MR#: [id number] Acct: [id number] Name: YARELIS BURROWS ep #: [id number] : 1955 F 62 From: Armen Slade MD PCP: Mylene Craig NP Status: REG CLI Study: Dexa Bone Density Study () Date of Exam: 10/21/17 Exam# [id number] Ordering Dr: Mylene Craig STUDY: DUAL ENERGY [...] Armen Slade MD at 12:13 EST Tel [phone], Service support , CC: Mylene Craig NP Landfill Gas Collection Operator: Signed 20-Oct-2017 Discharge Instruction Result: Comments: See Note; NOTES: [facility] Medical Records Department [address] [place] [address] Instructions for Home/Discharge Instructions 10/20/17 0843 MR#: [id number] Acct: [id number] Name: YARELIS BURROWS Toni Rep #: [id number] : 1955 62 From: Chayo Ku DO [...] Follow Up With: Chayo Ku DO - [phone] 10/20/17 0844 <Electronically signed by Chayo Ku DO> Date __ Chayo Ku DO CC: Mylene Craig NP 19-Oct-2017 Orthopedic Visit Report Result: Comments: See Note; NOTES: [facility]ics [facility] Medicine [address] [place] [address] OFFICE VISIT Date of Service: 10/15/17 MR#: [id number] Acct: [id number] Name: YARELIS BURROWS Rep #: [id number] : 1955 Provider: Chayo Ku DO Age/Sex: 62/F Location: [facility] Status: Signed Intake Vital Signs10/15/17 Height 5 [...] (CAD), BILAT Result: Comments: See Note; NOTES: [facility] Imaging Services [address] [place] [address] Verdana 4d SCREENING MAMM (CAD), BILAT MR#: [id number] Acct: [id number] Name: ANDREW BURROWS Rep #: [id number] : 1955 F 61 From: Armen Slade MD PCP: Myleen Craig Status: REG CLI Study: SCREENING MAMM (CAD), BILAT Date of Exam: 10/29/16 Exam# [id number] Ordering Dr: Manjit Musa MAMMOGRAPHY - BILATERAL [...] delay biopsy of a clinically suspicious abnormality. [id number] Electronically Signed: Armen Slade MD at 8:12 EST Tel [phone], Service support [phone], CC: Mylene Musa Landfill Gas Collection Operator: Signed 17-Sep-2016 Finger(s) Min 2 Views Result: Comments: See Note; NOTES: [facility] Imaging Services [address] [place] [address] Verdana 4d Finger(s) Min 2 Views MR#: [id number] Acct: [id number] Name: YARELIS BURROWS Rep #: [id number] : 1955 F 61 From: Donal Austin MD PCP: Yuki Sharp MD Status: REG CLI Study: Finger(s) Min 2 Views Date of Exam: 09/17/16 Exam# [id number] Ordering Dr: Chayo Ku DO STUDY: X-RAY [...] MD at 11:37 EST , Service support [phone], CC: Chayo Ku DO; Yuki Sharp MD Landfill Gas Collection Operator: Signed 17-Sep-2016 Hand Min 3 Views Result: Comments: See Note; NOTES: [facility] Imaging Services [address] [place] [address] Verdana 4d Hand Min 3 Views MR#: [id number] Acct: [id number] Name: YARELIS BURROWS Re p #: [id number] : 1955 F 61 From: Donal Austin MD PCP: Yuki Sharp MD Status: REG CLI Study: Hand Min 3 Views Date of Exam: 09/17/16 Exam# [id number] Ordering Dr: Chayo Ku DO STUDY: X- [...] MD at 11:36 EST , Service support [phone], CC: Chayo Ku DO; Yuki Sharp MD Landfill Gas Collection Operator: Signed 26-Nov-2015 Abdomen/Pelvis without Cont Result: Comments: See Note; NOTES: [facility] Imaging Services [address] [place] [address] Verdana 4d Abdomen/Pelvis without Cont MR#: [id number] Acct: [id number] Name: YARELIS BURROWS Rep #: [id number] : 1955 F 60 From: Armen Slade MD PCP: Yuki Sharp MD Status: REG CLI Study: Abdomen/Pelvis without Cont Date of Exam: 11/26/15 Exam# [id number]: Jennifer Spencer DO STUDY: [...] Armen Slade MD at 9:10 EST Tel [phone], Service support [phone], CC: Yuki Sharp MD; Jennifer Spencer DO Landfill Gas Collection Operator: Signed 15-Oct-2015 Bilat Scrn Digital AND CAD Result: Comments: See Note; NOTES: [facility] Imaging Services [address] [place] [address] Giseladajn 4d Bilat Scrn Digital AND CAD MR#: [id number] Acct: [id number] Name: YARELIS BURROWS Rep #: [id number] : 1955 F 60 From: Armen Slade MD PCP: Yuki Sharp MD Status: REG CLI Study: Bilat Scrn Digital AND CAD Date of Exam: 10/15/15 Exam# [id number] Ordering Dr: Yuki Sharp MD MAMMOGRAPHY - [...] biopsy of a clinically s uspicious abnormality. [id number] Electronically Signed: Armen Slade MD at 7:46 EST Tel [phone], Service support [phone], CC: Yuki Sharp MD Landfill Gas Collection Operator: Signed 15-Oct-2015 Dexa Bone Density Study (HP) Result: Comments: See Note; NOTES: [facility] Imaging Services [address] [place] [address] Verdana 4d Dexa Bone Density Study (HP) MR#: [id number] Acct: [id number] Name : YARELIS BURROWS Rep #: [id number] : 1955 F 60 From: Armen Slade MD PCP: Yuki Sharp MD Status: REG CLI Study: Dexa Bone Density Study (HP) Date of Exam: 10/15/15 Exam# [id number]: Yuki Sharp MD STUDY: [...] Armen Slade MD at 15:58 EST Tel [phone], Service support [phone], CC: Yuki Sharp MD Landfill Gas Collection Operator: Signed 20-May-2015 Gallium ScanWB Tumor/SingleDay Result: Comments: See Note; NOTES: [facility] Imaging Services [address] [place] [address] Nuclear Medicine Report MR#: [id number] Acct: [id number] Name: YARELIS BURROWS Rep #: [id number] : 1955 F 59 From: Karlos Landers DO PCP: Yuki Sharp MD Status: REG CLI Study: Gallium ScanWB Tumor/SingleDay Date of Exam: 05/20/15 Exam# [id number] Ordering Dr: Yuki Sharp MD CLINICAL: 59-year-old [...] Karlos Landers DO at 21:27 EDT Tel [phone], Service support [phone], CC: Yuki Sharp MD Landfill Gas Collection Operator: Signed 08-Apr-2015 Echocardiogram Complete Result: Comments: See Note; NOTES: [facility] Cardiovascular Services [address] [place] [address] Echo Complete 04/08/15 1408 MR#: [id number] Acct: [id number] Name: YARELIS BURROWS Rep #: [id number] : 1955 59 From: Anthony Ojeda MD Attending Dr: Yuki Sharp MD Status: REG CLI Ordering Dr: Yuki Sharp MD Date: 04/08/15 Location: [facility] Sex: F C Admitted: Procedure This [...] Vessels Normal aortic root. The pulmonary art bboby is normal size. Normal inferior vena cava. [...] Dictated: 04/08/15 1408 Date Transcribed: 04/08/15 1543 Landfill Gas Collection Operator: Signed 03-Apr-2015 Bone Scan Whole Body Result: Comments: See Note; NOTES: [facility] Imaging Services [address] [place] [address] Nuclear Medicine Report MR#: [id number] Acct: [id number] Name: YARELIS BURROWS Rep #: [id number] : 1955 F 59 From: Karlos Landers DO PCP: Yuki Sharp MD Status: REG CLI Study: Bone Scan Whole Body Date of Exam: 04/03/15 Exam# [id number] Ordering Dr: Yuki Sharp MD CLINICAL: 59-year-old [...] Karlos Landers DO at 8:10 EDT Tel [phone], Service support [phone], CC: Yuki Sharp MD Landfill Gas Collection Operator: Signed 26-Sep-2014 Bilat Scrn Digital AND CAD Result: Comments: See Note; NOTES: [facility] Imaging Services [address] [place] [address] Breast Imaging Report MR#: [id number] Acct: [id number] Name: YARELIS BURROWS #: [id number] : 1955 F 59 From: Armen Slade MD PCP: Yuki Sharp MD Status: REG CLI Study: Bilat Scrn Digital AND CAD Date of Exam: 09/26/14 Exam# [id number] Ordering Dr: Luis Sharp MD MAMMOGRAPHY - [...] Armen Slade MD at 7:28 EST Tel [phone], Service support [phone], CC: Yuki Sharp MD Landfill Gas Collection Operator: Signed 05-Apr-2014 Kidney and Bladder Result: Comments: See Note; NOTES: [facility] Imaging Services [address] [place] [address] Ultrasound Report MR#: [id number] Acct: [id number] Name: YARELIS BURROWS Rep #: [id number] : 1955 F 58 From: Justyn Neville PCP: Yuki Sharp MD Status: REG CLI Study: Kidney and Bladder Date of Exam: 04/05/14 Exam# [id number] Ordering Dr: Yuki Sharp MD STUDY: R [...] at 2:00 EDT Tel , Service support [phone], CC: Yuki Sharp MD Landfill Gas Collection Operator: Signed 21-Mar-2014 Abdomen Single View Result: Comments: See Note; NOTES: [facility] Imaging Services [address] [place] [address] Radiology Report MR#: [id number] Acct: [id number] Name: YARELIS BURROWS Rep #: [id number] : 1955 F 58 From: Armen Slade MD PCP: Status: REG CLI Study: Abdomen Single View Date of Exam: 03/21/14 Exam# [id number] Ordering Dr: Mylene Craig STUDY: X-RAY - [...] Armen Slade MD at 12:51 EDT Tel [phone], Service support [phone], RAD/Abdomen Single View IMPRESSION: Stable calcifications overlying both kidneys. Cholelithiasis. Electronically Signed: Armen Slade MD at 12:51 EDT Tel [phone], Service support [phone], CC: Mylene Craig Landfill Gas Collection Operator: Signed 09-Oct-2013 PT Letter Result: Comments: See Note; NOTES: [facility] [address] [place] [address] Fax Yuki Sharp MD [address] [place] [address] Sharp: Yarelis Tyler Singletonman, date of , 1955, was seen for a massotherapy evaluation on November 02, 2012, with a diagnosis of tension headach es. This patient was treated with 6 sessions of massage therapy, which consisted of ladslzhn-ne-ycwp tissue full body massage. Myofacial release and muscle stripping were incorporated into the mas annamarie as well as the heat pack to loosen muscles. Due to time constraints with insurance, at this time, I would discharge this patient from our care at [facility] facility . Sincerely, Libby Marie LMT T: NTS JOB: [id number] <Electronically signed by Libby Marie > 10/09/13 1704 CC: -Aug-2013 Bilat Scrn Digital & CAD Result: Comments: See Note; NOTES: [facility] Imaging Services [address] [place] [address] Breast Imaging Report MR#: [id number] Acct: [id number] Name: YARELIS BURROWS #: [id number] : 1955 F 58 From: Armen Slade MD PCP: Status: REG CLI Exam# [id number] Ordering Dr: Yuki Sharp MD MAMMOGRAPHY - [...] 30, 2013 at 7 :48:44 AM EST [phone] Electronically Signed GP/GP If you are the referring physician and would like to consult with the radiologist who provided this interpretation, please contact Armen Slade M.D. at [phone]. If this radiologist is unavailable, you will be directed to another radiologist to assist. If you are a patient with a question regarding this report, please contact your referring physician directly. Professional Interpretation Provided By: Specle, Phone , These documents contain legally protected [...] of these documents. CC: Yuki Sharp MD Land[employer] Collection Operator: Signed 29-Aug-2013 Dexa Bone Density Study (HP) Result: Comments: See Note; NOTES: [facility] Imaging Services [address] [place] [address] Bone Density Report MR#: [id number] Acct: [id number] Name: YARELIS BURROWS Rep #: [id number] : 1955 F 58 From: Armen Slade MD PCP: Status: REG CLI Study: Dexa Bone Density Study (HP) Date of Exam: 08/29/13 Exam# [id number] Ordering Dr: Yuki Sharp MD STUDY : [...] August 30, 2013 at 12:10:19 PM EST [phone] Electronically Signed GP/GP If you are the referring physician and would like to consult with the radiologist who provided this interpretation, please contact Armen Slade M.D. at [phone]. If this radiologist is unavailable, you will be directed to another ra diologist to assist. If you are a patient with a question regarding this report, please contact your referring physician directly. Professional Interpretation Provided By: [employer]le, Phone , These documents contain legally protected [...] of these documents. CC: Yuki Sharp MD [employer] Collection Operator: Signed Family History Unknown Family Member [...] Active Current Work/Study Status Comments: Full-time, [employer] Status: Active Exercise History Comments: Light Status: [...] Height 0 in Head Circumference 0.00 cm 2-Igs-067521:46 Pulse 74 /min Comments: Pattern: Regular Respiration Rate 16 /min Comments: Pattern: Unlabored BP Systolic 122 mm[Hg] Comments: Patient Position: Sitting; Cuff Location: Left Arm; Cuff Size: Large BP Diastolic 84 mm[Hg] Comments: Patient Position: Sitting; Cuff Location: Left Arm; Cuff Size: Large Weight 166 lb Height 0 in Head Circumference 0.00 cm Results Date Description Value Details 49-Ywa-258928:15 Basic Metabolic Profile (BMP) Comments: [facility] [address] [place], [place], [address] GAP 5 (Normal) Range: 5-15 CO2 31.0 [...] A.D.A. criteria.Please note revised GLUCOSE reference range ftetjaaln56/02/2018. 50-Bsy-429223:15 CBC W/Diff, Automated Comments: [facility] [address] [place], [place], [address] Absolute Lymph 1.37 {X10_3/ul} (Normal) Range: 0.83-4.51 [...] 4.2-5.4 WBC 7.4 K/mm3 (Normal) Range: 4.4-11.0 50-Rzi-817173:15 Troponin-I Comments: [facility] [address] [place], [place], [address] TROPONIN-I < 0.015 ng/mL (Normal) Comments: TROPONIN-I EXPECTED VALUES <0.045 Negative 0.045 - 0.590 Consistent with Cardiac Damage > OR = 0.600 Critical Value Not every elevated troponin is indicative of [place]. T hesevalues should be used with clinical judgement in examiningthe patient's clinical picture for diagnosis. To establisha diagnosis of [place] versus myocardial injury, there must be ademonstrated rise and/ or fall in the troponin values, inaddition to ischemic symptoms, EKG changes, new regionalwall motion abnormality, and/or angiographical evidence. PLEASE NOTE: REFERENCE RANGES EDITED 02/21/1804-Aug-201830-Svw-023885:29 D-Dimer Quantitative (DVT/PE) Comments: [facility] [address] [place], [place], [address] D-DIMER QUANT 0.27 {FEU/ug/m} (Normal) Range: 0.27-0.49 Comments: NORMAL D-Dimer level (<0.50) indicates no DVT or PE. :08 CBC, Platelets & Auto Diff Comments: PATIENT WAS FASTINGPERFORMED BY: LabCoSaint [facility] Hospital [facility] Boonton TownshipGvvstu2799 [facility] [id number] (76537) Immature Grans (Abs) 0.0 {x10E3/uL} (Normal) Range: [...] {x10E3/uL} (Normal) Range: 3.4-10.8 :08 Lipid Panel (35664) Comments: PATIENT WAS FASTINGPERFORMED BY: ZMPCoSaint Clare's Hospital at Boonton TownshipBelkvn6980 [facility] [id number] LDL/HDL Ratio 2.9 {ratio} (Normal) Range: 0.0-3.2 [...] Panel, Comprehensive Comments: PATIENT WAS FASTINGPERFORMED BY: LabCoSaint [facility] Hospital at Boonton TownshipZgxfyv7785 [facility] [id number] (36346) ALT (SGPT) 27 [iU]/L (Normal) Range: 0-32 [...] 8-27 Glucose 91 mg/dL (Normal) Range: 65-99 54-Cen-00012:0 GALLBLADDER See Note (Normal) Comments: [facility] [address] [place], [address] 0 Comments: Patient: YARELIS BURROWS : 1955 (62/F) Acct Num: [id number] Phys: Chepe PARDO,Chidi Unit Num: [id number] [place]: [facility] Specimen: [id number] Received: 01/25/181515 Spec Ty pe: GALLBLADDE TISSUES [...] measures up to 0.2 cm in thickness. Physically Impaired Teacher sections from the gallbladder and the cystic duct are submitted in one cassette. / [place] 01/25/18 TC:3 CPT: 94214 HEADER OPERATION: Laparoscopic cholecystectomy PRE-OP DIAGNOSIS: Calculus of gallbladder with chronic cholecystitis without obstruction TISSUE SUBMITTED: Adriel avalos MICROSCOPIC DESCRIPTION Slides are reviewed. MICROSCOPIC DIAGNOSIS Gallbladder: Chronic cholecystitis and cholelithiasis. [place] 01/26/18 Signed Osmany Velarde 01/26/18 <signature on file> 17-Kqy-66620:18 CBC-Complete Blood Cnt No Diff Comments: [facility] [address] [place], [place], [address] MPV 11.2 fL (Normal) Range: 6.2-12.0 PLT [...] 4.2-5.4 WBC 3.3 K/mm3 (Abnormal) Range: 4.4-11.0 33-Meu-90498:11 HEPATIC FUNCTION PANEL Comments: PATIENT NOT FASTINGPERFORMED BY: [facility] [id number] (49924) ALT (SGPT) 20 [iU]/L (Normal) Range: 0-32 AST (SGOT) 17 [iU]/L (Normal) Range: 0-40 Alkaline Phosphatase 78 [iU]/L (Normal) Range: 39-117 Bilirubin, Direct 0.17 mg/dL (Normal) Range: 0.00-0.40 Bilirubin, Total 0.9 mg/dL (Normal) Range: 0.0-1.2 Albumin 4.4 g/dL (Normal) Range: 3.6-4.8 Protein, Total 6.8 g/dL (Normal) Range: 6.0-8.5 74-Zpx-72444:11 PARATHORMONE (95566) Comments: PATIENT NOT FASTINGPERFORMED BY: [employer] [facility]gu[facility] HospitalDahuC[facility] [id number] PTH, Intact 45 pg/mL (Normal) Range: 15-65 :11 CALCIUM SERUM (07032) Comments: PATIENT NOT FASTINGPERFORMED BY: [employer] [facility] [id number] Calcium 9.0 mg/dL (Normal) Range: 8.7-10.3 :35 HEPATITIS PANEL (88074) Comments: PATIENT NOT FASTINGPERFORMED BY: [facility]6370 [facility] [id number] Hep C Virus Ab <0.1 {s/co_ratio} (Normal) Range: 0.0-0.9 Comments: Negative: < 0.8 Indeterminate: 0.8 - 0.9 Positive: > 0.9 . The CDC recommends that a positive HCV antibody result be followed up with a HCV Nucleic Acid Amplification test (987827). Hep B Core Ab, IgM Negative (Normal) HBsAg Screen Negative (Normal) Hep A Ab, IgM Negative (Normal) :35 VKCUJ-KIUCGZQREXB-LKUWG (15178) Comments: PATIENT NOT FASTINGPERFORMED BY: [facility]6370 [facility] [id number] AFP, Serum, Tumor Marker 8.0 ng/mL (Normal) Range: 0.0-8.3 Comments: Alexandra ECLIA methodology :49 Urinalysis, Office (64091) URINE UROBILINGN JEANNINE TIMED 2 mg/dL (Normal) [...] PATIENT WAS FASTINGPERFORMED BY: [facility]6370 [facility] [id number] Immature Grans (Abs) 0.0 {x10E3/uL} (Normal) Range: [...] 3.77-5.28 WBC 5.7 {x10E3/uL} (Normal) Range: 3.4-10.8 17-Zbv-22963:15 Comp. Metabolic Panel (14) Comments: PATIENT WAS FASTINGPERFORMED BY: LabCoSaint [facility] Hospital at Boonton TownshipYyqrau5796 [facility] [id number] ALT (SGPT) 91 [iU]/L (Abnormal) Range: 0-32 [...] With LDL/HDL Comments: PATIENT WAS FASTINGPERFORMED BY: [employer] SciencesC[facility] [id number] Ratio LDL/HDL Ratio 1.6 (Normal) Range: 0.0-3.2 [...] Microscopic Examination Comments: PATIENT WAS FASTINGPERFORMED BY: [employer] [facility] [id number] Bacteria Few (Normal) Mucus Threads Present (Normal) Epithelial Cells (non 0-10 {/hpf} Range: 0 - 10 renal) (Normal) RBC 0-2 {/hpf} (Normal) Range: 0 - 2 WBC 11-30 {/hpf} Range: 0 - 5 (Abnormal) TSH 2.840 {uIU/mL} Comments: PATIENT WAS FASTINGPERFORMED BY: [employer] Ar[employer]eta [facility] [id number] :15 (Normal) Range: 0.450-4.500 26-Xis-17681:15 Urinalysis, Complete Comments: PATIENT WAS FASTINGPERFORMED BY: ZMPLake Regional Health SystemGowmnv8939 [facility] [id number] Microscopic Examination See below: (Normal) Comments: Microscopic was indicated and was performed. Nitrite, Urine Positive (Abnormal) Urobilinogen,Semi-Qn 0.2 mg/dL (Normal) Range: 0.2-1.0 Bilirubin Negative (Normal) Occult Blood Negative (Normal) Ketones Negative (Normal) Glucose Negative (Normal) Protein Negative (Normal) WBC Esterase 2+ (Abnormal) Appearance Clear (Normal) Urine-Color Yellow (Normal) pH 7.5 (Normal) Range: 5.0-7.5 Specific [place] 1.015 (Normal) Range: 1.005-1.030 :06 URINE YAIR CULTURE-IDENTIFICATN Comments: PATIENT NOT FASTINGPERFORMED BY: [employer] Trbjrh3101 [facility] [id number] Information: SRC: (24089) Antimicrobial MIHEAD (Normal) Comments: S = Susceptible; [...] mL (Abnormal) Urine Final report Culture,Comprehensive (Abnormal) 98-Ygn-461939:41 Urinalysis, Office (42054) UA - LEUKOCYTE ESTERASE Small (Normal) UA - NITRITE Negative (Normal) URINE UROBILINGN JEANNINE TIMED 2 mg/dL (Normal) UA - PROTEIN Negative mg/dL (Normal) UA - PH 7 (Normal) UA - BLOOD Negative (Normal) UA - SPECIFIC GRAVITY 1.020 (Normal) UA - KETONES Negative mg/dL (Normal) UA - BILIRUBIN Negative (Normal) UA - GLUCOSE Negative (Normal) :07 MAGNESIUM (17092) Comments: PATIENT NOT FASTINGPERFORMED BY: [employer]Co Wdedqb7145 [facility] [id number] Magnesium, Serum 2.1 mg/dL (Normal) Range: 1.6-2.3 :07 POTASSIUM SERUM (87163) Comments: PATIENT NOT FASTINGPERFORMED BY: [facility] Jznjwg7496 [facility] [id number]; OV today Potassium, Serum 3.7 mmol/L (Normal) Range: 3.5-5.2 :32 Culture, Urine Comments: [facility] [address] [place], [place], [address] CUUR See Note (Normal) Comments: Urine CultureBelow infection level. ORGANISM 1: Gram negative rodColony Count <1000 :30 CBC W/Diff, Automated Comments: [facility] [address] [place], [place], [address] Absolute Lymph 1.01 {X10_3/ul} (Normal) Range: 0.83-4.51 [...] 4.2-5.4 WBC 4.0 K/mm3 (Abnormal) Range: 4.4-11.0 09-Uvp-38229:30 Comprehensive Metabolic Profil Comments: [facility] [address] [place], [address] GAP 9 (Normal) Range: 5-15 CO2 29.0 [...] 7-18 GLU 99 mg/dL (Normal) Range: 70-110 21-Ovw-67726:30 Lipid Profile Comments: [facility] [address] [place], [address] VLDL 15 mg/dL (Normal) Range: 5-40 LDL [...] 200-240 mg/dL Borderline >240 mg/dL High Risk 70-Imu-16841:30 Vitamin D,25 Hydroxy Comments: [facility] [address] [place], [address] Vitamin D 25-OH 40.8 ng/mL (Normal) Comments: Vitamin D 25(OH) Status Range Deficiency <20 ng/mL (50nmol/L) Insuffciency 20 - 30 ng/mL (50 - 75 nmol/L) Sufficiency 30 - 100 ng/mL (75 - 250 nmol/L) Toxicity >100 ng/mL (>250 nmol/L) 1-Ddc-421147:00 Culture, Urine Comments: [facility] [address] [place], [address] CUUR See Note (Normal) Comments: Urine CultureORGANISM [...] $ <=20 S(NF) indicates non-formulary drug at [facility]. Approval by Infectious Disease Specialist required before non-formulary drugs may be ordered and/or dispensed. 6-Hix-852425:59 CALCIFEDIOL (44019) Comments: today; PATIENT NOT FASTINGPERFORMED BY: [facility]MPAsc[facility] Hospital6370 [facility] [id number] Vitamin D, 25-Hydroxy 59.8 ng/mL (Normal) Range: 30.0-100.0 Comments: Vitamin D deficiency has been defined by the [place] of[place]icine and an Endocrine Society practice guideline as alevel of serum 25-OH vitamin D less than 20 ng/mL (1,2).The Endocrine Society went on to further define vitamin Dinsufficiency as a level between 21 and 29 ng/mL (2).1. IOM ([place] of [employer]). 2010. Dietary reference intakes for calcium and D. [place]: The National Academies Press.2. Jaz MF, Chapo NC, Papito ROBERT, et al. Evaluation, treatment, and prevention of vitamin D deficiency: an Endocrine Society clinical practice guideline. JCEM. 2010; 96(7):1911-30. 4-Hsn-889610:59 URINE YAIR CULTURE-IDENTIFICATN Comments: PATIENT NOT FASTINGPERFORMED BY: [facility]Ssm [facility] Qdrqyv4229 [facility] [id number] Information: SRC:CARMEN (78423) Result 1 ECV (Abnormal) Comments: Escherichia coli, [...] report Culture,Comprehensi (Abnormal) ve 14-May-20179:34 Urinalysis, Office (36235) UA - LEUKOCYTE ESTERASE Moderate (Normal) UA - NITRITE Negative (Normal) URINE UROBILINGN JEANNINE TIMED Normal mg/dL (Normal) UA - PROTEIN Negative mg/dL (Normal) UA - PH 7.5 (Normal) UA - BLOOD Non Hemolyzed Trace (Normal) UA - SPECIFIC GRAVITY 1.010 (Normal) UA - KETONES Negative mg/dL (Normal) UA - BILIRUBIN Negative (Normal) UA - GLUCOSE Negative (Normal) 11-Fsz-281884:31 URINE YAIR CULTURE-JEANNINE COL Comments: PATIENT NOT FASTINGPERFORMED BY: [facility] Snpcfv3701 [facility] [id number] Information: SRC:UC COUNT (11041) Antimicrobial MIHEAD (Normal) Comments: S = Susceptible; [...] mL (Abnormal) Urine Final report Culture,Comprehensive (Abnormal) 61-Yve-54246:59 Urinalysis, Office (92872) UA - LEUKOCYTE ESTERASE Large (Normal) UA - NITRITE Negative (Normal) URINE UROBILINGN JEANNINE TIMED Normal mg/dL (Normal) UA - PROTEIN Negative mg/dL (Normal) UA - PH 6 (Abnormal) UA - BLOOD Hemolyzed Large (Normal) UA - SPECIFIC GRAVITY 1.010 (Normal) UA - KETONES Negative mg/dL (Normal) UA - BILIRUBIN Negative (Normal) UA - GLUCOSE Negative (Normal) :12 CBC WITH MANUAL DIFF (58636) Comments: PATIENT NOT FASTINGPERFORMED BY: DoorbotSaint [facility] Hospital at Boonton TownshipNejmjh0047 [facility] [id number] Immature Grans (Abs) 0.0 {x10E3/uL} (Normal) Range: [...] PATIENT WAS FASTINGPERFORMED BY: [facility]6370 [facility] [id number] (54307) AND (95487) Microalb/Creat Ratio 11.2 {mg/g_creat} (Normal) Range: 0.0-30.0 Microalbumin, Urine 13.2 ug/mL (Normal) Creatinine, Urine 117.4 mg/dL (Normal) :28 CALCIFEDIOL (72215) Comments: PATIENT WAS FASTINGPERFORMED BY: [employer] Skwfiz8519 [facility] [id number] Vitamin D, 25-Hydroxy 68.0 ng/mL (Normal) Range: 30.0-100.0 Comments: Vitamin D deficiency has been defined by the [place] ofMet[facility] Medical Centercine and an Endocrine Society practice guideline as alevel of serum 25-OH vitamin D less than 20 ng/mL (1,2).The Endocrine Society went on to further define vitamin Dinsufficiency as a level between 21 and 29 ng/mL (2).1. IOM ([place] of [employer]). 2010. Dietary reference intakes for calcium and D. [place]: The National Academies Press.2. Jaz MF, Chapo HOPE, Papito ROBERT, et al. Evaluation, treatment, and prevention of vitamin D deficiency: an Endocrine Society clinical practice guideline. JCEM. 2010; 96(7):1911-30. :28 TSH (THYROID STIMULATING Comments: PATIENT WAS FASTINGPERFORMED BY: [facility] Eqqgpg6797 [facility] [id number] HORMONE) (72108) TSH 3.970 {uIU/mL} (Normal) Range: 0.450-4.500 :28 LIPID PANEL (00747) Comments: PATIENT WAS FASTINGPERFORMED BY: [facility] Rsqfwv5527 [facility] [id number] LDL/HDL Ratio 1.4 {ratio_units} (Normal) Range: 0.0-3.2 [...] PANEL, COMPREHENSIVE Comments: PATIENT WAS FASTINGPERFORMED BY: [employer] Zamyqw9706 [facility] [id number] (47262) ALT (SGPT) 25 [iU]/L (Normal) Range: 0-32 [...] AUT DIFF Comments: PATIENT WAS FASTINGPERFORMED BY: [employer] Gmdxaw1592 [facility] [id number] (92631) Immature Grans (Abs) 0.0 {x10E3/uL} (Normal) Range: [...] 3.77-5.28 WBC 3.3 {x10E3/uL} (Abnormal) Range: 3.4-10.8 52-Zee-765430:27 MICROALBUMIN: CREATININE RATIO Comments: PATIENT WAS FASTINGPERFORMED BY: [employer] Bbvkte2782 Argueta [facility] [id number] (82947) AND (21079) Microalb/Creat Ratio 15.5 {mg/g_creat} (Normal) Range: 0.0-30.0 Microalbumin, Urine 8.6 ug/mL (Normal) Creatinine, Urine 55.6 mg/dL (Normal) 52-Liv-869646:27 CALCIFEDIOL (20966) Comments: PATIENT WAS FASTINGPERFORMED BY: [employer] Jbcmlk7420 Argueta [facility] [id number] Vitamin D, 25-Hydroxy 29.7 ng/mL (Abnormal) Range: 30.0-100.0 Comments: Vitamin D deficiency has been defined by the [place] of[place]icine and an Endocrine Society practice guideline as alevel of serum 25-OH vitamin D less than 20 ng/mL (1,2).The Endocrine Society went on to further define vitamin Dinsufficiency as a level between 21 and 29 ng/mL (2).1. IOM ([place] [employer]). 2010. Dietary reference intakes for calcium and D. [place]: The National Academies Press.2. Jaz MF, Chapo HOPE, Papito ROBERT, et al. Evaluation, treatment, and prevention of vitamin D deficiency: an Endocrine Society clinical practice guideline. JCEM. 2010; 96(7):1911-30. 23-Lnn-366654:27 LIPID PANEL (08458) Comments: PATIENT WAS FASTINGPERFORMED BY: [employer]70 [employer]-Wave SystemsRobley [facility] [id number] LDL/HDL Ratio 1.5 {ratio_units} (Normal) Range: 0.0-3.2 [...] PANEL, COMPREHENSIVE Comments: PATIENT WAS FASTINGPERFORMED BY: [employer]6370 [employer] SystemsC[facility] Health [id number] (44774) ALT (SGPT) 22 [iU]/L (Normal) Range: 0-32 [...] Glucose, Serum 89 mg/dL (Normal) Range: 65-99 02-Trl-830449:27 CBC, PLATELETS & AUT DIFF Comments: PATIENT WAS FASTINGPERFORMED BY: LabCoSaint [facility] Hospital at Boonton TownshipRpxvyt0151 [facility] [id number] Information: 211726,S75460 (57439) Immature Grans (Abs) 0.0 {x10E3/uL} Range: 0.0-0.1 [...] CYTOSPIN ON FLUID See Note (Normal) Comments: [facility] [address] [place], [address] 00 Comments: Patient: YARELIS BURROWS : 1955 (60/F) Acct Num: [id number] Phys: Jacky PARDO,Robb Unit Num: [id number] Loc: [facility] Specimen: [id number] Received: 04/21/16 - 1323 Spec Type: CYSPIN FL TISSUES TISSUES: COMMENT Differential diagnosis includes infection, calculi or low-grade urothelial neoplasm. CYTOLOGY GROSS Received is 60 ml of clear yello w fluid labeled with the patient's name and and designated per the requisition as urine. Submitted for cytology preparation. 04/21/16 TC:5 CPT: 09700 CYTOLOGY STUDY Slides are reviewed. The specimen consists of benign squamous cells, benign urothelial cells and urothelial cells in clusters and numerous neutrophils. DIAGNOSIS CYTOLOGY Urine for cytology (cytospin): Acute inflammation. Urothelial cells in clusters is noted. See cytology study and comment. PITER:trevor 04/22/16 HEADER OPERATION: Not noted PRE-OP DIAGNOSIS: Hematuria R31.1 TISSUE SUBMITT ED: Urine for cytology Signed Osmany Velrade 04/22/16 <signature on file> 51-Hhf-298316:17 URINE YAIR CULTURE-JEANNINE COL Comments: PATIENT NOT FASTINGPERFORMED BY: ZMPLake Regional Health SystemQxusqt2235 [facility] [id number] Information: SRC:[facility] [id number] COUNT (86781) Result 1 CNSNSS (Abnormal) Comments: Coagulase negative [...] S Urine Final report Culture,Comprehens (Abnormal) tracey 36-Vjk-182124:10 Urinalysis, Office (67081) UA - LEUKOCYTE ESTERASE Negative (Normal) UA - NITRITE Negative (Normal) URINE UROBILINGN JEANNINE TIMED Normal mg/dL (Normal) UA - PROTEIN Negative mg/dL (Normal) UA - PH 7 (Normal) UA - BLOOD Non Hemolyzed Moderate (Normal) UA - SPECIFIC GRAVITY 1.010 (Normal) UA - KETONES Negative mg/dL (Normal) UA - BILIRUBIN Negative (Normal) UA - GLUCOSE Negative (Normal) 6-Fkp-714277:54 URINE YAIR CULTURE-JEANNINE COL Comments: PATIENT NOT FASTINGPERFORMED BY: [facility]Co Mdrkym3588 [facility] [id number] Information: SRC:[facility] Q20885 COUNT (90641) Antimicrobial MIHEAD (Normal) Comments: S = Susceptible; [...] mL (Abnormal) Urine Final report Culture,Comprehensive (Abnormal) 2-Nva-211560:41 Urinalysis, Office (28665) UA - LEUKOCYTE ESTERASE Moderate (Normal) UA - NITRITE Negative (Normal) URINE UROBILINGN JEANNINE TIMED Normal mg/dL (Normal) UA - PROTEIN Negative mg/dL (Normal) UA - PH 7 (Normal) UA - BLOOD Non Hemolyzed Moderate (Normal) UA - SPECIFIC GRAVITY 1.015 (Normal) UA - KETONES Negative mg/dL (Normal) UA - BILIRUBIN Negative (Normal) UA - GLUCOSE Negative (Normal) 77-Wbq-842641:06 Aldosterone, Serum Comments: [facility] (refer to report for specific site)refer to report for address and phone number [facility] 4374 4.8 ng/dL (Normal) Range: 0.0-30.0 12-Jjm-170970:06 Magnesium Comments: [facility] Hljfzvfdwk5348 [facility] [place], [address] MG 2.1 mg/dL (Normal) Range: 1.8-2.4 24-Jbb-666842:06 Potassium Comments: [facility] Pgumxzufbp3571 [facility] [place] [place], [address] K 3.4 mmol/L (Abnormal) Range: 3.5-5.1 05-Eth-596781:06 Renin, Plasma Comments: [facility] (refer to report [...] 2.80 Na= >150 0.39 - 1.31Performed at: [facility] LabCo[address] [id number] Director: Nomi Villeda MD, Phone: [phone] 79-Wmw-037827:06 Thyroid Stim Hormone (TSH) Comments: [facility] [address] [place], [place], [address] TSH 1.93 {uIU/mL} (Normal) Range: 0.358-3.74 10-Apr-20158:39 Potassium Comments: Test performed at:[facility] Rx[address]gbqkx[address] [place] [address] K 3.6 mmol/L (Normal) Range: 3.5-5.1 33-Lbr-293210:43 Aldosterone, Urine Comments: PATIENT NOT FASTINGPERFORMED BY: Vert[employer] [id number] BY: [employer] [address] [id number] Aldosterone,U, Timed 10.43 {ug/24_hr} (Normal) Range: 0.00-19.00 Comments: Adult Ranges Low Sodium Intake 20.00 - 80.00 Normal Sodium Intake 0.00 - 19.00 High Sodium Intake 0.00 - 12.00 Aldosterone U,Random 2.98 ug/L (Normal) 75-Gxt-708416:43 Cortisol, Urinary Free Comments: PATIENT NOT FASTINGPERFORMED BY: [employer] [facility] [address] [place] [address] [id number] BY: [employer] [id number] Cortisol,F,ug/24hr,U 42 {ug/24_hr} (Normal) Range: 0-50 Cortisol,F,ug/L,U 12 ug/L (Normal) 34-Hxq-567091:43 Potassium, 24 hr Urine Comments: PATIENT NOT FASTINGPERFORMED BY: LabCo[address] [id number] BY: Doorbot[address] [id number] Information: C:SHARON [id number] START 5@6AM FI MARNIE Potassium, Urine 119.4 {mmol/24_hr} Range: 25.0-125.0 (Normal) Potassium, Urine 34.1 mmol/L (Normal) Renin Activity, Plasma <0.15 {ng/mL/hr} Comments: PATIENT NOT FASTINGPERFORMED BY: ZMP[address] [id number] Information: [id number],[id number] :48 (Normal) Comments: Adult Normal Salt Intake: Upright 1.31 - 3.95 Supine 0.15 - 2. 33 . Salt Excretion (Na mEq/24 hr): Na= 0 - 30 8.82 - 23.86 Na= 30 - 75 4.09 - 7.73 Na= 75 - 150 1.44 - 2.80 Na= >150 0.39 - 1.31 :58 Aldosterone LCMS, Serum Comments: PATIENT NOT FASTINGPERFORMED BY: Doorbot Cdctnq7036 [facility] [id number] BY: ZMP[address] [id number] Aldosterone 6.0 ng/dL (Normal) Range: 0.0-30.0 : Magnesium, Serum 2.1 mg/dL (Normal) Comments: PATIENT NOT FASTINGPERFORMED BY: Unigo70 [facility] [id number] BY: Doorbot[address] [id number] 58 Range: 1.6-2.6 : TSH 2.160 {uIU/mL} Comments: PATIENT NOT FASTINGPERFORMED BY: DoorbotSaint Clare's Hospital at Boonton TownshipYeyvmh[address] [place] [address] [id number] BY: [address] [id number] Inf ormation: [id number] 58 (Normal) Range: 0.450-4.500 8-Cbr-181018:00 Comprehensive Metabolic Profil Comments: Test performed at:[facility] Ljmbfuenje[address] [place] [address] GAP 6 (Normal) Range: 5-15 [...] 7-18 GLU 92 mg/dL (Normal) Range: 70-110 2-Pms-159277:00 Lipid Profile Comments: Test performed at:[facility] Svugevmzbj3119 [facility] [place] [address] VLDL 14 mg/dL (Normal) Range: [...] >240 mg/dL High Risk :14 Urinalysis, Office (94510) UA - LEUKOCYTE ESTERASE Trace (Normal) UA [...] CULTURE-JEANNINE COL Comments: PATIENT NOT FASTINGPERFORMED BY: [employer]70 [facility]vatCata[facility] [id number] Information: SRC: URETHRA COUNT (20041) Result 1 MUG (Normal) Comments: Mixed urogenital flora1,000 Colonies/mL Urine Culture,Comprehensive Final report (Normal) 04-Twu-232165:48 URINE YAIR CULTURE-JEANNINE COL Comments: PATIENT NOT FASTINGPERFORMED BY: Vertrorp Tapuec8064 [employer] ExpertCatawba Valley Medical Center [id number] Information: SRC:URC [id number] COUNT (43407) Antimicrobial MIHEAD (Normal) Comments: S = Susceptible; [...] mL (Abnormal) Urine Final report Culture,Comprehensive (Abnormal) 13-Dlz-834855:56 Urinalysis, Office (52356) UA - LEUKOCYTE ESTERASE Large (Normal) UA - NITRITE Negative (Normal) URINE UROBILINGN JEANNINE TIMED Normal mg/dL (Normal) UA - PROTEIN 30 mg/dL (Normal) UA - PH 7.0 (Normal) UA - BLOOD ++ (Abnormal) UA - SPECIFIC GRAVITY 1.010 (Normal) UA - KETONES Negative mg/dL (Normal) UA - BILIRUBIN Negative (Normal) UA - GLUCOSE Negative (Normal) 2-Gec-494524:54 URINE YAIR CULTURE-JEANNINE COL Comments: PATIENT NOT FASTINGPERFORMED BY: [place] 9166570 [facility] [id number] Information: SRC:UR [id number] COUNT (88026) Result 1 ECV (Abnormal) Comments: Escherichia coli, [...] S Urine Final report Culture,Comprehensi (Abnormal) ve 0-Saw-166903:18 Urinalysis, Office (93944) UA - LEUKOCYTE ESTERASE Large (Normal) UA - NITRITE Negative (Normal) URINE UROBILINGN JEANNINE TIMED Normal mg/dL (Normal) UA - PROTEIN 100 mg/dL (Normal) UA - PH 7 (Normal) UA - BLOOD Hemolyzed Large (Normal) UA - SPECIFIC GRAVITY 1.025 (Normal) UA - KETONES Negative mg/dL (Normal) UA - BILIRUBIN Negative (Normal) UA - GLUCOSE Negative (Normal) 43-Xok-758337:40 POTASSIUM SERUM (23100) Comments: today; PATIENT NOT FASTINGPERFORMED BY: [place] 9166570 [facility] [id number] Information: [id number] Potassium, Serum 3.9 mmol/L (Normal) Range: 3.5-5.2 4-Can-677267:10 Comprehensive Metabolic Profil Comments: Test performed at:[facility] [address] [place], [place] [id number] GAP 4 (Abnormal) Range: 5-15 CO2 31.0 [...] 70-110 :10 Lipid Profile Comments: Test performed at:[facility] Yrowfuqppm[address] [place], [place] [address] VLDL 19 mg/dL (Normal) Range: 5-40 LDL [...] Borderline >240 mg/dL High Risk :15 Magnesium (65384) Comments: today; PATIENT NOT FASTINGPERFORMED BY: [facility]MPAsc[facility] Providence Hospital6370 [facility] [id number] Magnesium, Serum 2.2 mg/dL (Normal) Range: 1.6-2.6 :15 Potassium Serum (66893) Comments: today; PATIENT NOT FASTINGPERFORMED BY: [facility]6370 [facility] [id number] Information: [id number] Potassium, Serum 3.8 mmol/L (Normal) Range: 3.5-5.2 :48 Urinalysis, Office (72851) UA - LEUKOCYTE ESTERASE Negative (Normal) UA [...] CULTURE-JEANNINE COL Comments: PATIENT NOT FASTINGPERFORMED BY: ZMPBrianna Ville [id number] [facility] [id number] Information: SRC:UR [id number]; will review at appt. today COUNT (29890) Result 1 MUG (Normal) Comments: Mixed urogenital flora1,000 Colonies/mL Urine Culture,Comprehensive Final report (Normal) :09 Urinalysis, Office (03532) UA - LEUKOCYTE ESTERASE Negative (Normal) UA [...] CHOL 169 mg/dL (Normal) Comments: <200 mg/dL Ilgqkaolz116-018 mg/dL Borderline>240 mg/dL High Risk 7-Kam-807213:33 Lipid Panel (90154) Comments: PATIENT WAS FASTINGPERFORMED BY: [employer]6370 [facility] [id number] Information: [id number] LDL/HDL Ratio 1.6 {ratio_units} (Normal) Range: 0.0-3.2 LDL Cholesterol Calc 96 mg/dL (Normal) Range: 0-99 VLDL Cholesterol Damon 12 mg/dL (Normal) Range: 5-40 HDL Cholesterol 59 mg/dL (Normal) Comments: According to ATP-III Guidelines, HDL-C >59 mg/dL is considered anegative risk factor for CHD. Triglycerides 59 mg/dL (Normal) Range: 0-149 Cholesterol, Total 167 mg/dL (Normal) Range: 100-199 2-Nug-998651:33 HEPATIC FUNCTION PANEL Comments: PATIENT WAS FASTINGPERFORMED BY: [employer]70 [facility] [id number] (82751) ALT (SGPT) 36 [iU]/L (Abnormal) Range: 0-32 AST (SGOT) 29 [iU]/L (Normal) Range: 0-40 Alkaline Phosphatase, S 76 [iU]/L (Normal) Range: 39-117 Bilirubin, Direct 0.20 mg/dL (Normal) Range: 0.00-0.40 Bilirubin, Total 0.8 mg/dL (Normal) Range: 0.0-1.2 Albumin, Serum 4.1 g/dL (Normal) Range: 3.5-5.5 Protein, Total, Serum 6.6 g/dL (Normal) Range: 6.0-8.5 :27 METABOLIC PANEL, Comments: health screening labs; PATIENT WAS FASTINGPERFORMED BY: DoorbotSaint Clare's Hospital at Boonton TownshipZuftlw7358 [facility] [id number] Information: [id number] [facility] (64066) ALT (SGPT) 19 [iU]/L (Normal) Range: 0-32 [...] mg/dL (Normal) Range: 65-99 :27 LIPID PANEL (01415) Comments: PATIENT WAS FASTINGPERFORMED BY: LabCoSaint Clare's Hospital at Boonton TownshipBdlguv9984 [facility] [id number] LDL/HDL Ratio 3.7 {ratio_units} (Abnormal) Range: 0.0-3.2 [...] Slade M.D.January 18, 2013 at 10:24:09 AM [id number] Signed GP/GP If you are the referring physician and would like to consult with theradiologist who provided this interpretation, please contact Albania Thomas at [phone]. If this radiologist is unavailable, youwill be directed to another radiologist t o assist. If you are a patient with a question regarding this report, pleasecontactyour referring physician directly. Professional Interpretation Provided By: Specle, Phone ,Fax These documents contain legally protected [...] 1027 Sign b y: Armen Slade MD 96-Aqr-09274:08 Metabolic Panel, Comments: today; PATIENT NOT FASTINGPERFORMED BY: LabCoWilliam Ville [id number] [facility] [id number] Information: [id number] Comprehensive (42086) ALT (SGPT) 29 [iU]/L (Normal) Range: 0-32 [...] Glucose, Serum 102 mg/dL (Abnormal) Range: 65-99 38-Ocj-15943:19 Urinalysis, Office (78475) UA - BILIRUBIN Negative (Normal) UA - [...] 200-240 mg/dL Borderline >240 mg/dL High Risk 9-Zlb-661579:26 BILAT SCRN DIGITAL & CAD Radiology Report See Note (Normal) Comments: Exam Number: [id number] AMMOGRAPHY - BILATERAL SCREENING INDICATION:Routine annual screening [...] a Res ultCode to this exam. ADDENDUM: [id number] HPBI/MDS Reported By: DAVION BA M.D. 1-Jyf-152260:26 DEXA BONE DENSITY STUDY (HP) Radiology Report See Note (Normal) Comments: Exam Number: [id number] LINICAL:This is a 55-year-old female patient for postmenopausal screening. EXAMINATION:DUAL ENERGY X-RAY ABSORPTIOMETRY / DEXA. TECHNIQUE:Bone Density Measurements (BMD) of lumbar spine and bilateral hips were obtained using a GoInstant scanner.. COMPARISON:Comparison is made with prior examination [...] s (Normal) Range: 25.2-36.2 :10 Urinalysis, Office (36552) UA - LEUKOCYTE ESTERASE Trace (Normal) UA - NITRITE Negative (Normal) URINE UROBILINGN JEANNINE TIMED 2 mg/dL (Normal) UA - PROTEIN Negative mg/dL (Normal) UA - PH 6.5 (Normal) UA - BLOOD Negative (Normal) UA - SPECIFIC GRAVITY 1.005 (Normal) UA - KETONES Negative mg/dL (Normal) UA - BILIRUBIN Negative (Normal) UA - GLUCOSE Negative (Normal) 86-Jxt-195845:04 URINE YAIR CULTURE-JEANNINE COL Comments: PATIENT NOT FASTINGPERFORMED BY: LabCo Asxssr4995 [facility] [id number] Information: SRC: URINE COUNT (92616) Antimicrobial MIHEAD (Normal) Comments: S = Susceptible; [...] mL (Normal) Urine Final report (Normal) Culture,Comprehensive 18-Mvb-256584:03 Urinalysis, Office (76450) UA - LEUKOCYTE ESTERASE Small (Normal) UA - NITRITE Negative (Normal) URINE UROBILINGN JEANNINE TIMED Normal mg/dL (Normal) UA - PROTEIN Negative mg/dL (Normal) UA - PH 7.0 (Normal) UA - BLOOD Non Hemolyzed Moderate (Normal) Comments: Large UA - SPECIFIC GRAVITY 1.010 (Normal) UA - KETONES Negative mg/dL (Normal) UA - BILIRUBIN Negative (Normal) UA - GLUCOSE Negative (Normal) 4-Dlm-541978:19 Urinalysis, Office (92209) UA - LEUKOCYTE ESTERASE Negative (Normal) UA - NITRITE Negative (Normal) URINE UROBILINGN JEANNINE TIMED 2 mg/dL (Normal) UA - PROTEIN Negative mg/dL (Normal) UA - PH 7.0 (Normal) UA - BLOOD Negative (Normal) UA - SPECIFIC GRAVITY 1.010 (Normal) UA - KETONES Negative mg/dL (Normal) UA - BILIRUBIN Negative (Normal) UA - GLUCOSE Negative (Normal) 52-Wna-502743:04 Urinalysis, Office (03437) UA - BILIRUBIN Negative (Normal) UA - [...] Indication: Chest pain Chest pain : Reviewed [employer] Letter Indication: Chest pain Chest pain : [...] : Follow up in 2 days with [facility] Indication: Nausea alone Wheezing : Follow [...] not specified Planned Observations Metabolic Panel, Comprehensive (61219)Indication: Hypercholesteremia On: :58 Request LIPID PANEL (98931)Indication: Hypercholesteremia On: :55 Request D-Dimer (28842)Indication: Chest pain on breathing On: 76-Pli-436707:20 Request Comments: STAT BUUOT-MWKETLGBMQL-DWMWC (82263)Indication: Elevated liver enzymes On: :16 Request Parathyroid Hormone-related Peptide (PTH-rP) (82668)Indication: Hypercalcemia On: :42 Request CBC, Platelets & Auto Diff (61462)Indication: Headache On: 2-Isl-330359:55 Request Lipid Panel (60658)Indication: Headache On: 0-Tzh-662377:53 Request TSH (20068)Indication: Headache On: :52 Request URINALYSIS, W/ MICRO (43498)Indication: Hematuria On: :52 Request CALCIFEDIOL (59843)Indication: Osteoporosis On: :02 Request Comments: Aug 2017 CBC, Platelets & Auto Diff (78006)Indication: GERD (gastroesophageal reflux disease) On: :01 Request Comments: Aug 2017 Metabolic Panel, Comprehensive (54376)Indication: Hypercholesteremia On: : Request Comments: Aug 2017 Lipid Panel (47465)Indication: Hypercholesteremia On: :01 Request Comments: Aug 2017 LIPID PANEL (41841)Indication: Hypercholesteremia On: :39 Request Comments: in six months (approximately) METABOLIC PANEL, COMPREHENSIVE (70169)Indication: Hypercholesteremia On: :39 Request Aldosterone,24-Hour Urine (25781)Indication: Hypokalemia On: :37 Request Comments: pt to take salt load by salt food POTASSIUM SERUM (00429)Indication: Hypokalemia On: :34 Request POTASSIUM SERUM (87188)Indication: Hypokalemia On: :40 Request MAGNESIUM (58693)Indication: Hypokalemia On: :55 Request POTASSIUM SERUM (06673)Indication: Hypokalemia On: :54 Request Comments: 2 weeks ALDOSTERONE (75534)Indication: Hypokalemia On: :46 Request RENIN (37243)Indication: Hypokalemia On: :46 Request TSH (THYROID STIMULATING HORMONE) (18425)Indication: Hypokalemia On: :45 Request POTASSIUM URINE (75946)Indication: Hypokalemia On: :44 Request Comments: 24 hour urine CORTISOL FREE (95477)Indication: Hypokalemia On: :44 Request Comments: 24 hour urine Aldosterone,24-Hour Urine (61044)Indication: Hypokalemia On: :43 Request POTASSIUM SERUM (75268)Indication: Hypokalemia On: :22 Request METABOLIC PANEL, COMPREHENSIVE (95863)Indication: Hypercholesteremia On: :22 Request Comments: in six months (approximately) LIPID PANEL (70969)Indication: Hypercholesteremia On: :22 Request Comments: in six months (approximately) METABOLIC PANEL, COMPREHENSIVE (16662)Indication: Hypercholesteremia On: :50 Request Comments: in six months (approximately) LIPID PANEL (30435)Indication: Hypercholesteremia On: :50 Request Comments: in six months (approximately) METABOLIC PANEL, COMPREHENSIVE (44773)Indication: Hypercholesteremia On: :45 Request LIPID PANEL (52143)Indication: Hypercholesteremia On: :45 Request CBC WITH MANUAL DIFF (87007)Indication: Hypercholesteremia On: 9-Uqr-856102:45 Request URINE YAIR CULTURE-IDENTIFICATN (95117)Indication: Hematuria, unspecified On: :36 Request CALCULUS CHEMICAL QUANTI (28339)Indication: History of kidney stones On: :28 Request METABOLIC PANEL, COMPREHENSIVE (97633)Indication: Elevated blood-pressure reading without diagnosis of hypertension On: 51-Xla-398371:15 Request LIPID PANEL (76630)Indication: Elevated blood-pressure reading without diagnosis of hypertension On: 52-Pam-118620:15 Request CALCIFIDIOL (83745) VIT D 25Indication: Osteoporosis On: 87-Sdr-42276:00 Request TSH (41306)Indication: Stress reaction On: :56 Request URINALYSIS, W/ MICRO (39117)Indication: Elevated blood-pressure reading without diagnosis of hypertension On: :56 Request LIPID PANEL (18488)Indication: Elevated blood-pressure reading without diagnosis of hypertension On: :55 Request CBC WITH MANUAL DIFF (40317)Indication: Elevated blood-pressure reading without diagnosis of hypertension On: 56-Vfg-79948:55 Request METABOLIC PANEL, COMPREHENSIVE (48496)Indication: Osteoporosis On: :55 Request URINE YAIR CULTURE-IDENTIFICATN (31156)Indication: Hematuria, unspecified On: 67-Gof-803449:04 Request URINALYSIS (98603)Indication: Hematuria On: :09 Request Lipid Panel (22294)Indication: Screening for lipid disorders On: 3-Afr-152716:09 Request CALCIFIDIOL (97140) VIT D 25Indication: Osteoporosis On: 6-Nik-946094:08 Request CBC (Auto) (78950)Indication: Osteoporosis On: 9-Ykq-376431:07 Request Metabolic Panel, Comprehensive (52512)Indication: Osteoporosis On: 2-Kmt-023546:07 Request Planned Encounters Medical; 3 Month FU - On: 19-Oct-2018 8:30 Comprehensive Internal Medicine Mylene Criag CNP, CNP, Mary E Planned Procedures ELECTROCARDIOGRAM, COMPLETE (ECG) On: 13-Sep-2018 Intent (60414)By: Mylene Craig CNP, CNP, Mary E Echo CompleteBy: Mylene Craig CNP On: 24-Aug-2018 Intent Mylene Craig CNP COMPUTED TOMOGRAPHY ANGIOGRAPHY OF On: 04-Aug-2018 Intent CHEST FOR PULMONARY EMBOLISM (43737)By: Katarina Bourgeois CHEST XRAY, PA & LATERAL (81309)By: On: 04-Aug-2018 Intent Katarina Bourgeois Ultrasound - LiverBy: Mylene Craig CNP On: 10-Dec-2017 Intent E Mylene Craig CNP SCREENING DIGITAL TOMOSYNTHESIS OF On: 10-Dec-2017 Intent BREAST (76517)By: Mylene Craig CNP, CNP, Mary E Flu Vaccine (Quadrivalent) 21981Ae: On: 27-Aug-2017 Intent Mylene Craig CNP, CNP, Mary E Comments: lot: [id number]: 03/28/18ite/route: L analilia, IMamt: 0.5mlVIS and ABN signed when applicablePEYTON Morales Ear Irrigation (23345)By: Eleart GLADIS, On: 27-Aug-2017 Intent Mylene León CNP Comments: IrrigationSite- L and RAmount/Color/Quality - medium amount removed from L ear and minimal from RTolerated wellChePEYTON lowery Bone Density StudyBy: Mylene Craig CNP On: 14-May-2017 Intent E Mylene Craig CNP Comments: Repeat Oct 2017 MAMMOGRAM, SCREENING, BOTH BREAST On: 25-Aug-2016 Intent (07033)By: Manjit Musa MD Flu Vaccine (Quadrivalent) 63153Lz: On: 25-Aug-2016 Intent Manjit Musa MD Comments: Lot #[id number]/30/17ite-L dltd, IMDose prefilled syringegiven by:ROSSY CardenasNVIS and ABN signed COMP EYE EXAMINATION, ESTAB PATIENT On: 13-Jan-2016 Intent (50319)By: Mylene Craig CNP, CNP, Mary E CT - Abdomen & Pelvis (Without On: 25-Nov-2015 Intent Contrast)By: Jennifer Spencer DO Comments: tonight - stat Toradol Injection, 30 mg (J1885)By: On: 1-Feb-2016 Intent [facility]ylene [facility]NP[facility] GLADIS, Mylene Duenas Wax CurettesBy: Yuki Sharp MD On: 16-Sep-2015 Intent Ear Irrigation (04490)By: Lila On: 16-Sep-2015 Intent Yuki PARDO LIMITED GALLIUM SCAN FOR LOCALIZATION On: 22-Apr-2015 Intent OF ABSCESS (34755)By: Lila PARDO, Comments: head and neck Yuki Martin Echo CompleteBy: Yuki Sharp MD On: 25-Mar-2015 Intent MAMMOGRAM, SCREENING, BOTH BREAST On: 25-Mar-2015 Intent (14480)By: Yuki Sharp MD DEXA SCAN AXIAL SKELETON (22745)By: On: 25-Mar-2015 Intent Yuki Sharp MD Nuclear Medicine - Bone ScanBy: On: 25-Mar-2015 Intent Yuki Sharp MD EKG (45376)By: Yuki Sharp MD On: 25-Mar-2015 Intent Comments: see scanned document of test done to see results reviewed today with patient IMMUNIZ ADMNIN, 1 VAC, SNGL/COMBO On: 25-Mar-2015 Intent (67422)By: Yuki Sharp MD ZOST[place] VACC, [place] (78306)By: Lila On: 25-Mar-2015 Intent Yuki PARDO Toradol Injection, 30 mg (J1885)By: On: 15-Oct-2014 Intent Ana Lauraanaart GRIFFITH Mylene Duenas ana DESIGN DRAFTER, Mylene Duenas Comments: lot 60-071-nxgpc 10.10.1630mg right JULIUS Villarreal SPECIMEN HANDLING/TRANSPORT On: 15-Oct-2014 Intent (34843)By: Kiara GRIFFITH Yesica Ciart GRIFFITH Yesica MAMMOGRAM, SCREENING, BOTH BREAST On: 05-Sep-2014 Intent (80001)By: Yuki Sharp MD Flu Vaccine (Quadrivalent) 92161Fg: On: 10-Aug-2014 Intent Adrienne Tirado LPN ADMINISTRATION OF INFLUENZA VIRUS On: 10-Aug-2014 Intent VACCINE (G0008)By: Adrienne Tirado LPN Comments: X23SP6.15prefilled syringeL Dltd, IMAS, LPNABN and VIS signed Rocephin Injection, 2 Gram On: 09-Aug-2014 Intent (J0696)By: Corine Rice DO Comments: 923047w1.1.172 gmbilateral gm IMAS, LPNABN and VIS signed Wax CurettesBy: Corine Rice DO On: 09-Aug-2014 Intent Ear Irrigation (32758)By: Dwayne ALAN, On: 09-Aug-2014 Intent Corine Comments: b/lmoderate amount of yellow wax removed bilaterallywax curette used Ultrasound - RenalBy: Lila PARDO, On: 26-Mar-2014 Intent Yuki Martin Radiology - KUBBy: Mylene Craig CNP On: 21-Mar-2014 Intent Mylene Craig CNP Comments: today Toradol Injection, 30 mg (J1885)By: On: 21-Mar-2014 Intent Mylene Craig CNP, CNP, Mary E SPECIMEN HANDLING/TRANSPORT On: 21-Mar-2014 Intent (65824)By: Mylene Craig CNP, CNP, Mary E IMMUNIZ ADMNIN, 1 VAC, SNGL/COMBO On: 27-Jun-2013 Intent (32966)By: Yuik Sharp MD FLU VAC, SPLIT, >3 YEARS, INTRAMUSC On: 27-Jun-2013 Intent (14695)By: Yuki Sharp MD MAMMOGRAM, SCREENING, BOTH BREASTS On: 27-Jun-2013 Intent (26086)By: Yuki Sharp MD DXA, BONE DENSITY, AXIAL SKELETON On: 27-Jun-2013 Intent (25175)By: Yuki Sharp MD Eprescribed prescriptions (G8553)By: On: 27-Jun-2013 Intent Long AUTHORIZATION SPECIALIST, Ines L MAMMOGRAM, SCREENING, BOTH BREASTS On: 06-Jun-2013 Intent (48914)By: Yuki Sharp MD DXA, BONE DENSITY, AXIAL SKELETON On: 06-Jun-2013 Intent (79800)By: Yuki Sharp MD Phenergan Injection, up to 50 mg On: 18-Jan-2013 Intent (J2550)By: Mylene Craig CNP, CNP, Mary E CT - Abdomen & Pelvis Stone On: 18-Jan-2013 Intent ProtocolBy: Mylene Craig CNP Comments: today Mylene GRIFFITH Toradol Injection, 30 mg (J1885)By: On: 18-Jan-2013 Intent Mylene Craig CNP, CNP Yesica Aerosol Treatment (68970)By: Kiara On: 31-Aug-2012 Intent Mylene GRIFFITH CNP, Mary E Bone Density StudyBy: Lila PARDO, On: 25-Apr-2012 Intent Yuki Martin IMMUNIZ ADMNIN, 1 VAC, SNGL/COMBO On: 27-Jul-2011 Intent (63987)By: Yuki Sharp MD FLU VAC, SPLIT, >3 YEARS, INTRAMUSC On: 27-Jul-2011 Intent (54375)By: uYki Sharp MD TDAP VACCINE >7 IM (25190)By: Kiara On: 20-Mar-2010 Intent Mylene GRIFFITH CNP Yesica Comments: Lot #[id number]-0/24/12Site-left deltoidgiven by:[facility] EKG (72782)By: Corine Rice DO On: 09-May-2009 Intent Comments: [...] : DISCONTINUED - CBC & PLATELETS (AUTO) (93662) Indication: Bruising Elevated liver enzymes : DISCONTINUED - HEPATIC FUNCTION PANEL (91063) Indication: Elevated liver enzymes Hypercholesteremia : How to access health information online Indication: Hypercholesteremia Hypercholesteremia : How to access health information online - Detail Indication: Hypercholesteremia Hypercholesteremia : Patient Instructions Indication: Hypercholesteremia Osteoporosis : DISCONTINUED - DEXA SCAN AXIAL SKELETON (30562) Indication: Osteoporosis Hypercholesteremia : DISCONTINUED - METABOLIC PANEL, COMPREHENSIVE (24269) Indication: Hypercholesteremia Hematuria : How to access [...] Advance Directives Name Dates Details Immunization Registry [place] - Effective on 07/19/2018. Effective: 19-Jul-2018 Expiration [...] off of atrovastatin, was taking statin at [facility] Diagnosis: Hypercholesteremia, BMI 29.0-29.9,adult, Nonsmoker, Elevated [...] Nutrition: balanced diet and supplemental vitamins. The ok dical issues the patient is following up for include cardiac issues, gastric reflux, high cholesterol and other (EMENU, hyperkalemia ).Encounter Diagnosis: Hypercholesteremia, Current nonsmoker (Renamed [...] was 2009Encounter Diagnosis: WWV V73.21 (Renamed from [facility]), Osteoporosis (733.00), Hypercholesterolemia (272.0), HEART MURMUR (785.2), [...] Nausea alone (787.02), WWV V73.21 (Renamed from [facility]), Headache, Tension (307.81), LOW BACK PAIN (724.2), [...] (733.00), GERD (530.81), WWV V73.21 (Renamed from [facility]) [facility] Office Visit On: 02-Nov-2011 [...] (530.81), Rosacea (695.3), WWV V73.21 (Renamed from [facility]), Stress Reaction (308.4) [facility] Office [...] End: 10-Dec-2008 12:12 [facility] Medicine Payers [facility] ANA Burrows; art guarantor
--- OUTSIDE RECORDS SUMMARY | 2018-11-03 01:16 | XMS RPT_ITS | Continuity of Care Document ---
:1955 Author Organization [facility] Address [address] [place] [address] Phone Care Team Providers Name Role Phone Kiara GLADISMylene E Unavailable Dr. 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 Calcium 1500 End : 19-Jul-2018 Discontinued CELEXA, 10MG (Oral Tablet) 1 Tablet daily for 0 days Quantity: 90 {Tablet} Refills: 3 Ordered:26-Mar-2014 Reagan Sharp MD Start : 26-Mar-2014 End : 26-Mar-2014 Discontinued CORTISPORIN, 3.5-52195-0 (Otic Solution) 4 Metric Drop tid for 0 days Quantity: 1 {Bottle} Refills: 0 Ordered:18-Dec-2014 Adrienne Tirado LPN Start : 24-Oct-2014 End : 18-Dec-2014 Discontinued Cranberry End : 19-Jul-2018 Discontinued EXTRA STRENGTH PAIN RELIEVER, 542-868-45DN (Oral Tablet) 2 qd prn headaches (250-250-65 [...] Status: Inactive as of 27-Aug-2017 Vaccine for jjnkhbrnat-tkzlekg-fuodtxwlr with poliomyelitis (Z23, V06.3) Status: Inactive as [...] View (Portable) Result: Comments: See Note; NOTES: [facility] Imaging Services [address] [place] [address] Chest 1 View (Portable) MR#: [id number] Acct: [id number] Name: YARELIS BURROWS Rep #: [id number] : 1955 F 63 From: Maico Lehman MD PCP: Mylene Craig NP Status: REG ER Study: Chest 1 View (Portable) Date of Exam: 08/06/18 Exam# [id number] Ordering Dr: Laurie Garber MD STUDY: X [...] CC: Mylene Craig NP; Laurie Garber MD Electronics Supervisor: Signed 04-Aug-2018 Chest PA and Lateral Result: Comments: See Note; NOTES: [facility] Imaging Services [address] [place] [address] Chest PA and Lateral MR#: [id number] Acct: [id number] Name: YARELIS BURROWS Rep #: [id number] : 1955 F 63 From: Maico Lehman MD PCP: Mylnee Craig NP Status: REG CLI Study: Chest PA and Lateral Date of Exam: 08/04/18 Exam# [id number] Ordering Dr: Katarina Bourgeois EMERGENCY TELECOMMUNICATIONS DISPATCHER-C STUDY: X-RAY CHEST REASON FOR EXAM: Female, [...] , Service support , CC: Mylene Craig EMERGENCY TELECOMMUNICATIONS DISPATCHER; EMERGENCY TELECOMMUNICATIONS DISPATCHER-Iram Bourgeois Electronics Supervisor: Signed 10-Mar-2018 OT D/C Summary Result: Comments: See Note; NOTES: [facility] Occupational Therapy [facility] [address] [place] [address] Fax REHABILITATION SERVICES DIS CHARGE SUMMARY MR#: [id number] Acct: [id number] Name: YARELIS BURROWS Rep #: [id number] : 1955 62 From: Marlene Sexton Referring [...] but Pt. is able to straighten actively. [facility] assessment completed on date and is as follows; quality assurance associate 54, 86; lateral R 17, L 15; [...] Resume Hobbies Goal:: Yarelis to increase R quality assurance associate to that of L quality assurance associate 2/3 trials 75% if the time to [...] R MF vs L MF are similar. Senior Commissions Analyst is to continue to progress through use and strengthening protocol through HEP. SHe is to call with questions/concerns. - D/C Informati on If there are questions or concerns regarding this patient's occupational therapy, please fell free to call me at [phone]. Thank you for the referral of this patient. Sincerely, Marlene Calvert rs <Electronically signed by Marlene Sexton > 03/10/18 1402 CC: Mylene Craig EMERGENCY TELECOMMUNICATIONS DISPATCHER; Chayo Ku DO KMB Signed 02-Feb-2018 Surgery Visit Report Result: Comments: See Note; NOTES: [facility] [address] [place] [address] OFFICE VISIT Date of Service: 02/01/18 MR#: [id number] Acct: [id number] Name: YARELIS RAMON Toni Rep #: [id number] : 1955 Provider: Jenise Julian PA-C Age/Sex: 62/F Location: [facility] Status: Signed Intake Intake Visit Reasons: f/u paulino 01/25/2018 dp Instructor Of Nursing Required: No Is patient in pain?: No [...] Operative Report Result: Comments: See Note; NOTES: [facility] Medical Records Department [address] [place] [address] Operative Report 01/25/18 1134 MR#: [id number] Acct: [id number] Name: ANDREW BURROWS Rep #: [id number] : 1955 62 From: Chidi Mo MD PCP: Mylene Craig NP Status: [facility] Y Location: [facility] Problem List (1) Calculus of gallbladder with chronic cholecystitis without ob struction Status: Acute Report of Operation Date of Procedure: 01/25/18 Pre-Operative Diagnosis: k 80.10 calculus of the gallbladder with chronic cholecystitis without obstruction Post-Operative Diagno sis: Same Surgery/Procedure Performed:: 83415 laparoscopic cholecystectomy Type of Anesthesia:: General Anesthesiologist: [...] Discharge Instruction Result: Comments: See Note; NOTES: [facility] Medical Records Department [address] [place] [address] Instructions for Home/Discharge Instructions 01/25/18 1133 MR#: [id number] Acct: [id number] Name: YARELIS BURROWS Rep #: [id number] : 1955 62 From: Chidi Mo MD PCP: Mylene Craig NP Status: REG [facility] Discharge Diet: Light diet - advance as [...] With: Chidi Mo MD - Please call [phone] to schedule an appointment. When: 7 days after your surgery. 01/25/18 3663 <Electronically signed by Chidi bishop MD> Date Chidi Mo MD CC: Mylene Craig NP 21-Jan-2018 12 Lead Electrocardiogram Result: Comments: See Note; NOTES: [facility] Cardiovascular Services [address] [place] [address] 12 Lead EKG 01/20/18 0837 MR#: [id number] Acct: [id number] Name: YARELIS BURROWS Rep #: [id number] : 1955 62 From: Anthony Ojeda MD Attending Dr: Chidi Mo MD Status: PRE SDC Ordering Dr: Chidi Mo MD Date: 01/20/18 Location: [facility] Sex: F C Admitted: Test Reason : PRE OP Blood Pressure : / mmHG Vent. Rate : 064 BPM Atrial Rate : 064 BPM P-R Int : 130 ms QRS Dur : 092 ms QT Int : 396 ms P-R-T Axes : 013 028 024 degrees QTc Int : 408 ms Normal sinus rhythm Normal ECG Confirmed by ASHLEY PARDO, ANTHONY ([id number]), publications editor CAITLIN NIELSON ([id number]) on 01/21/2018 11:35:11 AM Referred By: Chidi Mo Confirmed By:ANTHONY OJEDA MD 01/21/18 1135 Date Anthony Ojeda MD CC: Mylene Craig EMERGENCY TELECOMMUNICATIONS DISPATCHER; Chidi Mo MD Signed 31-Dec-2017 SCREENING MAMM (CAD), BILAT Result: Comments: See Note; NOTES: [facility] Imaging Services [address] [place] [address] SCREENING MAMM (CAD), BILAT MR#: [id number] Acct: [id number] Name: EMERSON BURROWSYulissa Muñoz Re p #: [id number] : 1955 F 62 From: Fransisco Aaron MD PCP: Mylene Craig NP Status: REG CLI Study: SCREENING MAMM (CAD), BILAT Date of Exam: 12/31/17 Exam# [id number] Ordering Dr: Mylene Craig MAMMOGR APHY - BILATERAL SCREENING 3-D NEIO SYNTHESIS REASON FOR EXAM: Female, 62 years [...] Service support , CC: Mylene Craig NP Electronics Supervisor: Signed 30-Dec-2017 Surgery Visit Report Result: Comments: See Note; NOTES: [facility] [address] [place] [address] OFFICE VISIT Date of Service: 12/30/17 MR#: [id number] Acct: [id number] Name: LY MARIKAYARELIS L Rep #: [id number] : 1955 Provider: Chidi Mo MD Age/Sex: 62/F Location: [facility] Status: Signed Intake Vital Signs12/30/17 Height 5 ft 4 in 12/30/17 Weight: 177 lb Intak e Visit Reasons: cholelithiasis Instructor Of Nursing Required: No Is patient in pain?: No Allergies No Known Allergies Allergy (Verified 12/30/17 13:23) Medications coenzyme Q10 200 mg capsule 200 mg PO ON CE 10/15/17 [History Confirmed 12/30/17] atorvastatin 20 mg tablet 10 mg PO QDAY tab 12/30/17 [History Confirmed 12/30/17] cholecalciferol (vitamin D3) 10,000 unit capsule 10,000 unit PO QDAY 12/30/17 [ History Confirmed 12/30/17] [facility] Medical History Esophageal reflux (Chronic) Hyperlipidemia (Chronic) [...] ultrasound was obtained. This was completed at [facility] on 12/16/2017. This showed a normal [...] to place, oriented to time [facility] Head: normocephalic, atraum atic Ears: [...] 16-Dec-2017 Liver Result: Comments: See Note; NOTES: [facility] Imaging Services [address] [place] [address] Liver MR#: [id number] Acct: [id number] Name: YARELIS BURROWS Rep #: [id number] : F 62 From: Armen Slade MD PCP: Mylene Craig NP Status: REG CLI Study: Liver Date of Exam: 12/16/17 Exam# [id number] Ordering Dr: Mylene Craig STUDY: ABDOMINAL ULTRASOUND [...] Armen Slade MD at 14:34 EST Tel [phone], Service support , CC: Mylene Craig NP Electronics Supervisor: Signed 09-Dec-2017 OT General Evaluation Result: Comments: See Note; NOTES: [facility] Occupational Therapy [facility] [address] [place] [address] Fax REHABILITATION SERVICES INI TIAL EVALUATION MR#: [id number] Acct: [id number] Name: YARELIS BURROWS Rep #: [id number] : 1955 62 From: Marlene Sexton Referring Dr.: Chayo Ku DO Status: REG RCR [facility] Date: SELF PAY INSURANCE Patient's Visit Information YAERLIS BURROWS is a 62 year old F, [...] DIP: MF 0-68, L 0-61 - Strength Senior Commissions Analyst: R 39, L 52 Lateral Pinch: R 7, L 11 Tripod Pinch: R 6, L 8 Tip-to-Tip Pinch: R 6, L 4 - Edema Proximal Phalanx: MF R 7.5 cm, L 6.8 cm - Sensation Sensation Comments: WFL; deneis numbness and tingling. - Hand/Wrist Evaluation Total Score of Pain AND Functiona l Sections: 18 - Goals Goal:: Yarelis to increase R quality assurance associate to that of L quality assurance associate 2/3 trials 75% if the time to [...] to be FAXED BACK to us at [phone] for Medicare purposes. Please let me know if there are questions or concerns regarding this plan of care. Physici an Signature: Date: <Electronically signed by Marlene Sexton > 12/09/17 1206 CC: Mylene Craig EMERGENCY TELECOMMUNICATIONS DISPATCHER; Chayo Ku DO D KMB Signed For Medicare only, by signing this I certify the plan of care. Physicians Signature Date 02-Dec-2017 Orthopedic Visit Report Result: Comments: See Note; NOTES: [facility] Orthopaedics AND Sports Medicine [address] [place] [address] OFFICE VISIT Date of Service: 12/02/17 MR#: [id number] Acct: [id number] Name: YARELIS BURROWS Toni Rep #: [id number] : 1955 Provider: Chayo Ku DO Age/Sex: [...] Visit Report Result: Comments: See Note; NOTES: [facility] Orthopa[facility]ics AND Sports Medicine [address] [place] [address] OFFICE VISIT Date of Service: 11/11/17 MR#: [id number] Acct: [id number] Name: YARELIS BURROWS Rep #: [id number] : 1955 Provider: Chayo Ku DO Age/Sex: 62/F Location: [facility] Status: Signed Intake Intake Visit Reasons: Trigger [...] mg PO ONCE 10/15/17 [History Confirmed 10/19/17] [facility] Medical History (Reviewe d 11/11/17 @ 08:03 [...] was likely lacking full extension from the roller bearing inspector triggering, that now she will need to [...] Operative Report Result: Comments: See Note; NOTES: [facility] Medical Records Department [address] [place] [address] Operative Report 10/20/17 0844 MR#: [id number] Acct: [id number] Name: ANDREW BURROWS Rep #: [id number] : 1955 62 From: Chayo Ku DO PCP: Mylene Craig NP Status: [facility] Y Location: [facility] Report of Operation Date of Procedure: 10/20/17 [...] SCDs placed on her bilateral lower extremity. [place] block was initiated and the right [...] with concerns This note was generated with [employer] dictation software. It ma y contain incorrect words, spelling, and punctuation that were not noted in checking the note before signing. 10/28/17 1219 <Electronically signed by Chayo Ku DO> Date ___ Chayo Ku DO CC: Mylene Craig NP; Chayo Ku DO Signed 21-Oct-2017 Dexa Bone Density Study (HP) Result: Comments: See Note; NOTES: [facility] Imaging Services [address] [place] [address] Dexa Bone Density Study (HP) MR#: [id number] Acct: [id number] Name: YARELIS BURROWS ep #: [id number] : 1955 F 62 From: Armen Slade MD PCP: Mylene Craig NP Status: REG CLI Study: Dexa Bone Density Study (HP) Date of Exam: 10/21/17 Exam# [id number] Ordering Dr: Mylene Craig STUDY: DUAL ENERGY [...] Armen Slade MD at 12:13 EST Tel [phone], Service support , CC: Mylene Craig NP Electronics Supervisor: Signed 20-Oct-2017 Discharge Instruction Result: Comments: See Note; NOTES: [facility] Medical Records Department [address] [place] [address] Instructions for Home/Discharge Instructions 10/20/17 0843 MR#: [id number] Acct: [id number] Name: YARELIS BURROWS Rep #: [id number] : 1955 62 From: Chayo Ku DO PCP: Mylene Craig NP Status: REG [facility] Discharge Diet: No Restrictions - keep dressing [...] Follow Up With: Chayo Ku DO - [phone] 10/20/17 0844 <Electronically signed by Chayo Ku DO> Date __ Chayo Ku DO CC: Mylene Craig EMERGENCY TELECOMMUNICATIONS DISPATCHER 19-Oct-2017 Orthopedic Visit Report Result: Comments: See Note; NOTES: [facility] [address] [place] [address] OFFICE VISIT Date of Service: 10/15/17 MR#: [id number] Acct: [id number] Name: YARELIS BURROWS Rep #: [id number] : 1955 Provider: Chayo Ku DO Age/Sex: 62/F Location: [facility] Status: Signed Intake Vital Signs10/15/17 Height 5 [...] mg PO ONCE 10/15/17 [History Confirmed 10/19/17] [facility] Medical History Esophageal reflux (Chronic) Hyperlipidemia (Chronic [...] (CAD), BILAT Result: Comments: See Note; NOTES: [facility] Imaging Services [address] [place] [address] Verdana 4d SCREENING MAMM (CAD), BILAT MR#: [id number] Acct: [id number] Name: ANDREW BURROWS Rep #: [id number] : 1955 F 61 From: Armen Slade MD PCP: Mylene Craig Status: REG CLI Study: SCREENING MAMM (CAD), BILAT Date of Exam: 10/29/16 Exam# [id number] Ordering Dr: Manjit Musa MAMMOGRAPHY - BILATERAL [...] delay biopsy of a clinically suspicious abnormality. [id number] Electronically Signed: Armen Slade MD at 8:12 EST Tel [phone], Service support [phone], CC: Mylene Musa Electronics Supervisor: Signed 17-Sep-2016 Finger(s) Min 2 Views Result: Comments: See Note; NOTES: [facility] Imaging Services [address] [place] [address] Verreagan 4d Finger(s) Min 2 Views MR#: [id number] Acct: [id number] Name: YARELIS BURROWS Rep #: [id number] : 1955 F 61 From: Donal Austin MD PCP: Reagan Sahrp MD Status: REG CLI Study: Finger(s) Min 2 Views Date of Exam: 09/17/16 Exam# [id number] Ordering Dr: Chayo Ku DO STUDY: X-RAY [...] MD at 11:37 EST , Service support [phone], CC: Chayo Ku DO; Reagan Sharp MD Electronics Supervisor: Signed 17-Sep-2016 Hand Min 3 Views Result: Comments: See Note; NOTES: [facility] Imaging Services [address] [place] [address] Verda 4d Hand Min 3 Views MR#: [id number] Acct: [id number] Name: YARELIS BURROWS Amber p #: [id number] : 1955 F 61 From: Donal Austin MD PCP: Reagan Sharp MD Status: REG CLI Study: Hand Min 3 Views Date of Exam: 09/17/16 Exam# [id number] Ordering Dr: Chayo Ku DO STUDY: X- [...] MD at 11:36 EST , Service support [phone], CC: Chayo Ku DO; Reagan Sharp MD Electronics Supervisor: Signed 26-Nov-2015 Abdomen/Pelvis without Cont Result: Comments: See Note; NOTES: [facility] Imaging Services [address] [place] [address] Verdana 4d Abdomen/Pelvis without Cont MR#: [id number] Acct: [id number] Name: YARELIS BURROWS Rep #: [id number] : 1955 F 60 From: Armen Slade MD PCP: Reagan Sharp MD Status: REG CLI Study: Abdomen/Pelvis without Cont Date of Exam: 11/26/15 Exam# [id number]: Jennifer Spencer DO STUDY: [...] Armen Slade MD at 9:10 EST Tel [phone], Service support [phone], CC: Reagan Sharp MD; Jennifer Spencer DO Electronics Supervisor: Signed 15-Oct-2015 Bilat Scrn Digital AND CAD Result: Comments: See Note; NOTES: [facility] Imaging Services [address] [place] [address] Verdana 4d Bilat Scrn Digital AND CAD MR#: [id number] Acct: [id number] Name: YARELIS BURROWS Rep #: [id number] : 1955 F 60 From: Armen Slade MD PCP: Reagan Sharp MD Status: REG CLI Study: Bilat Scrn Digital AND CAD Date of Exam: 10/15/15 Exam# [id number] Ordering Dr: Reagan Sharp MD MAMMOGRAPHY - [...] biopsy of a clinically s uspicious abnormality. [id number] Electronically Signed: Armen Slade MD at 7:46 EST Tel [phone], Service support [phone], CC: Reagan Sharp MD Electronics Supervisor: Signed 15-Oct-2015 Dexa Bone Density Study (HP) Result: Comments: See Note; NOTES: [facility] Imaging Services [address] [place] [address] Verdana 4d Dexa Bone Density Study (HP) MR#: [id number] Acct: [id number] Name : YARELIS BURROWS Rep #: [id number] : 1955 F 60 From: Armen Slade MD PCP: Reagan Sharp MD Status: REG CLI Study: Dexa Bone Density Study (HP) Date of Exam: 10/15/15 Exam# [id number]: Reagan Sharp MD STUDY: [...] Armen Slade MD at 15:58 EST Tel [phone], Service support [phone], CC: Reagan Sharp MD Electronics Supervisor: Signed 20-May-2015 Gallium ScanWB Tumor/SingleDay Result: Comments: See Note; NOTES: [facility] Imaging Services [address] [place] [address] Nuclear Medicine Report MR#: [id number] Acct: [id number] Name: YARELIS BURROWS Rep #: [id number] : 1955 F 59 From: Karlos Landers DO PCP: Reagan Sharp MD Status: REG CLI Study: Gallium ScanWB Tumor/SingleDay Date of Exam: 05/20/15 Exam# [id number] Ordering Dr: Reagan Sharp MD CLINICAL: 59-year-old [...] Karlos Landers DO at 21:27 EDT Tel [phone], Service support [phone], CC: Reagan Sharp MD Electronics Supervisor: Signed 08-Apr-2015 Echocardiogram Complete Result: Comments: See Note; NOTES: [facility] Cardiovascular Services [address] [place] [address] Echo Complete 04/08/15 1408 MR#: [id number] Acct: [id number] Name: YARELIS BURROWS Rep #: [id number] : 1955 59 From: Anthony Ojeda MD [...] Dictated: 04/08/15 1408 Date Transcribed: 04/08/15 1543 Electronics Supervisor: Signed 03-Apr-2015 Bone Scan Whole Body Result: Comments: See Note; NOTES: [facility] Imaging Services [address] [place] [address] Nuclear Medicine Report MR#: [id number] Acct: [id number] Name: YARELIS BURROWS Rep #: [id number] : 1955 F 59 From: Karlos Landers DO PCP: Reagan Sharp MD Status: REG CLI Study: Bone Scan Whole Body Date of Exam: 04/03/15 Exam# [id number] Ordering Dr: Reagan Sharp MD CLINICAL: 59-year-old [...] Karlos Landers DO at 8:10 EDT Tel [phone], Service support [phone], CC: Reagan Sharp MD Electronics Supervisor: Signed 26-Sep-2014 Bilat Scrn Digital AND CAD Result: Comments: See Note; NOTES: [facility] Imaging Services [address] [place] [address] Breast Imaging Report MR#: [id number] Acct: [id number] Name: YARELIS BURROWS p #: [id number] : 1955 F 59 From: Armen Slade MD PCP: Reagan Sharp MD Status: REG CLI Study: Bilat Scrn Digital AND CAD Date of Exam: 09/26/14 Exam# [id number] Ordering Dr: Luis Sharp MD MAMMOGRAPHY - [...] Armen Slade MD at 7:28 EST Tel [phone], Service support [phone], CC: Reagan Sharp MD Electronics Supervisor: Signed 05-Apr-2014 Kidney and Bladder Result: Comments: See Note; NOTES: [facility] Imaging Services [address] [place] [address] Ultrasound Report MR#: [id number] Acct: [id number] Name: YARELIS BURROWS Rep #: [id number] : 1955 F 58 From: Justyn Neville PCP: Reagan Sharp MD Status: REG CLI Study: Kidney and Bladder Date of Exam: 04/05/14 Exam# [id number] Ordering Dr: Reagan Sharp MD STUDY: R [...] at 2:00 EDT Tel , Service support [phone], CC: Reagan Sharp MD Electronics Supervisor: Signed 21-Mar-2014 Abdomen Single View Result: Comments: See Note; NOTES: [facility] Imaging Services [address] [place] [address] Radiology Report MR#: [id number] Acct: [id number] Name: YARELIS BURROWS Rep #: [id number] : 1955 F 58 From: Armen Slade MD PCP: Status: REG CLI Study: Abdomen Single View Date of Exam: 03/21/14 Exam# [id number] Ordering Dr: Mylene Craig STUDY: X-RAY - [...] Armen Slade MD at 12:51 EDT Tel [phone], Service support [phone], RAD/Abdomen Single View IMPRESSION: Stable calcifications overlying both kidneys. Cholelithiasis. Electronically Signed: Armen Slade MD at 12:51 EDT Tel [phone], Service support [phone], CC: Mylene Craig Electronics Supervisor: Signed 09-Oct-2013 PT Letter Result: Comments: See Note; NOTES: [address] [place] [address] Fax Reagan Sharp MD [address] [place] [address] Sharp: Yarelis Burrows, date of , 1955, was seen for a massotherapy evaluation on November 02, 2012, with a diagnosis of tension headach es. This patient was treated with 6 sessions of massage therapy, which consisted of prhmklzf-oz-lafq tissue full body massage. Myofacial release and muscle stripping were incorporated into the mas annamarie as well as the heat pack to loosen muscles. Due to time constraints with insurance, at this time, I would discharge this patient from our care at [facility] facility . Sincerely, Libby Marie LMT T: NTS JOB: [id number] <Electronically signed by Libby Marie > 10/09/13 1704 CC: -Aug-2013 Bilat Scrn Digital & CAD Result: Comments: See Note; NOTES: [facility] Imaging Services [address] [place] [address] Breast Imaging Report MR#: [id number] Acct: [id number] Name: YARELIS BURROWS p #: [id number] : 1955 F 58 From: Armen Slade MD PCP: Status: REG CLI Exam# [id number] Ordering Dr: Reagan Sharp MD MAMMOGRAPHY - [...] 30, 2013 at 7 :48:44 AM EST [phone] Electronically Signed GP/GP If you are the referring physician and would like to consult with the radiologist who provided this interpretation, please contact Armen Slade M.D. at [phone]. If this radiologist is unavailable, you will be directed to another radiologist to assist. If you are a patient with a question regarding this report, please contact your referring physician directly. Professional Interpretation Provided By: HESIODO, Phone , These documents contain legally protected [...] of these documents. CC: Reagan Sharp MD Electronics Supervisor: Signed 29-Aug-2013 Dexa Bone Density Study (HP) Result: Comments: See Note; NOTES: [facility] Imaging Services [address] [place] [address] Bone Density Report MR#: [id number] Acct: [id number] Name: YARELIS BURROWS Rep #: [id number] : 1955 F 58 From: Armen Slade MD PCP: Status: REG CLI Study: Dexa Bone Density Study (HP) Date of Exam: 08/29/13 Exam# [id number] Ordering Dr: Reagan Sharp MD STUDY : [...] August 30, 2013 at 12:10:19 PM EST [phone] Electronically Signed GP/GP If you are the referring physician and would like to consult with the radiologist who provided this interpretation, please contact Armen Slade M.D. at [phone]. If this radiologist is unavailable, you will be directed to another ra diologist to assist. If you are a patient with a question regarding this report, please contact your referring physician directly. Professional Interpretation Provided By: HESIODO, Phone , These documents contain legally protected [...] of these documents. CC: Reagan Sharp MD Electronics Supervisor: Signed Family History Unknown Family Member Name [...] Active Current Work/Study Status Comments: Full-time, [employer] Status: Active Exercise History Comments: Light [...] kg/m2 Body Surface Area Calculated 1.85 m2 00-Qnn-131515:03 Pulse 76 /min Comments: Pattern: Regular Respiration [...] 0.00 cm Results Date Description Value Details 84-Puk-175732:15 Basic Metabolic Profile (BMP) Comments: [facility] [address] [place], [address] GAP 5 (Normal) Range: 5-15 CO2 31.0 [...] A.D.A. criteria.Please note revised GLUCOSE reference range lxycypnid73/02/2018. 74-Lnq-078246:15 CBC W/Diff, Automated Comments: [facility] [address] [place], [place], [address] Absolute Lymph 1.37 {X10_3/ul} (Normal) Range: 0.83-4.51 [...] 4.2-5.4 WBC 7.4 K/mm3 (Normal) Range: 4.4-11.0 53-Yfd-583520:15 Troponin-I Comments: [facility] [address] [place], [place], [address] TROPONIN-I < 0.015 ng/mL (Normal) Comments: TROPONIN-I EXPECTED VALUES <0.045 Negative 0.045 - 0.590 Consistent with Cardiac Damage > OR = 0.600 Critical Value Not every elevated troponin is indicative of TX. T hesevalues should be used with clinical judgement in examiningthe patient's clinical picture for diagnosis. To establisha diagnosis of TX versus myocardial injury, there must be ademonstrated rise and/ or fall in the troponin values, inaddition to ischemic symptoms, EKG changes, new regionalwall motion abnormality, and/or angiographical evidence. PLEASE NOTE: REFERENCE RANGES EDITED 02/21/1804-Aug-201898-Ubi-201245:29 D-Dimer Quantitative (DVT/PE) Comments: [facility] S[address]fur[address] [place], [place], [address] D-DIMER QUANT 0.27 {FEU/ug/m} (Normal) Range: 0.27-0.49 Comments: NORMAL D-Dimer level (<0.50) indicates no DVT or PE. 15-Apr-20189:08 CBC, Platelets & Auto Diff Comments: PATIENT WAS FASTINGPERFORMED BY: [facility] ElmerVpggpw3273 [facility] [id number] (40878) Immature Grans (Abs) 0.0 {x10E3/uL} (Normal) Range: [...] {x10E3/uL} (Normal) Range: 3.4-10.8 :08 Lipid Panel (79515) Comments: PATIENT WAS FASTINGPERFORMED BY: Tribunat Ghqcge4679 [facility] [id number] LDL/HDL Ratio 2.9 {ratio} (Normal) Range: 0.0-3.2 [...] Panel, Comprehensive Comments: PATIENT WAS FASTINGPERFORMED BY: Tribunat Urtiss4095 [facility] [id number] (94975) ALT (SGPT) 27 [iU]/L (Normal) Range: 0-32 [...] 8-27 Glucose 91 mg/dL (Normal) Range: 65-99 15-Lcb-87681:0 GALLBLADDER See Note (Normal) Comments: [facility] [address]udc[address] [place], [address] 0 Comments: Patient: YARELIS BURROWS : 1955 (62/F) Acct Num: [id number] Phys: Chepe PARDO,Chidi Unit Num: [id number] Loc: [facility] [place] Specimen: [id number] Received: 01/25/181515 Spec Ty pe: GALLBLADDE TISSUES [...] measures up to 0.2 cm in thickness. [place]erry[place] Deckhand sections from the gallbladder and the cystic duct are submitted in one cassette. / PITER:trevor 01/25/18 TC:3 CPT: 48422 HEADER OPERATION: Laparoscopic cholecystectomy PRE-OP DIAGNOSIS: Calculus of gallbladder with chronic cholecystitis without obstruction TISSUE SUBMITTED: Adriel avalos MICROSCOPIC DESCRIPTION Slides are reviewed. MICROSCOPIC DIAGNOSIS Gallbladder: Chronic cholecystitis and cholelithiasis. PITER:trevor 01/26/18 Signed Osmany Velarde 01/26/18 <signature on file> 78-Jfz-92240:18 CBC-Complete Blood Cnt No Diff Comments: [facility] [address] [place], [place], [address] MPV 11.2 fL (Normal) Range: 6.2-12.0 PLT [...] 4.2-5.4 WBC 3.3 K/mm3 (Abnormal) Range: 4.4-11.0 20-Fez-85625:11 HEPATIC FUNCTION PANEL Comments: PATIENT NOT FASTINGPERFORMED BY: LabCo Obngdy6809 [facility] [id number] (24249) ALT (SGPT) 20 [iU]/L (Normal) Range: 0-32 AST (SGOT) 17 [iU]/L (Normal) Range: 0-40 Alkaline Phosphatase 78 [iU]/L (Normal) Range: 39-117 Bilirubin, Direct 0.17 mg/dL (Normal) Range: 0.00-0.40 Bilirubin, Total 0.9 mg/dL (Normal) Range: 0.0-1.2 Albumin 4.4 g/dL (Normal) Range: 3.6-4.8 Protein, Total 6.8 g/dL (Normal) Range: 6.0-8.5 :11 PARATHORMONE (15783) Comments: PATIENT NOT FASTINGPERFORMED BY: Tribunat Tfufeq5373 [address] [facility]in [place] [id number] PTH, Intact 45 pg/mL (Normal) Range: 15-65 :11 CALCIUM SERUM (63926) Comments: PATIENT NOT FASTINGPERFORMED BY: [employer] [place] [id number] Calcium 9.0 mg/dL (Normal) Range: 8.7-10.3 :35 HEPATITIS PANEL (66421) Comments: PATIENT NOT FASTINGPERFORMED BY: [employer] [facility] [id number] Hep C Virus Ab <0.1 {s/co_ratio} (Normal) Range: 0.0-0.9 Comments: Negative: < 0.8 Indeterminate: 0.8 - 0.9 Positive: > 0.9 . The CDC recommends that a positive HCV antibody result be followed up with a HCV Nucleic Acid Amplification test (926250). Hep B Core Ab, IgM Negative (Normal) HBsAg Screen Negative (Normal) Hep A Ab, IgM Negative (Normal) :35 BWFQZ-KLEJNZPVBQC-JPNKL (81373) Comments: PATIENT NOT FASTINGPERFORMED BY: Tribunat Cxkmzk2327 [address] [facility] [place] [id number] AFP, Serum, Tumor Marker 8.0 ng/mL (Normal) Range: 0.0-8.3 Comments: Alexandra ECLIA methodology :49 Urinalysis, Office (71474) URINE UROBILINGN JEANNINE TIMED 2 mg/dL (Normal) [...] With Differential/Platelet Comments: PATIENT WAS FASTINGPERFORMED BY: [facility]Health[facility] [place]6370 [facility] [id number] Immature Grans (Abs) 0.0 {x10E3/uL} (Normal) Range: [...] Panel (14) Comments: PATIENT WAS FASTINGPERFORMED BY: [facility] ElmerEajoif7481 [facility] [id number] ALT (SGPT) 91 [iU]/L (Abnormal) Range: 0-32 [...] With LDL/HDL Comments: PATIENT WAS FASTINGPERFORMED BY: [facility] ElmerCzmpae8137 [facility] [id number] Ratio LDL/HDL Ratio 1.6 (Normal) Range: 0.0-3.2 [...] Microscopic Examination Comments: PATIENT WAS FASTINGPERFORMED BY: [facility] ElmerArrdbe6977 [facility] [id number] Bacteria Few (Normal) Mucus Threads Present (Normal) Epithelial Cells (non 0-10 {/hpf} Range: 0 - 10 renal) (Normal) RBC 0-2 {/hpf} (Normal) Range: 0 - 2 WBC 11-30 {/hpf} Range: 0 - 5 (Abnormal) TSH 2.840 {uIU/mL} Comments: PATIENT WAS FASTINGPERFORMED BY: ConnectFu Lmypau5101 [facility] [id number] :15 (Normal) Range: 0.450-4.500 :15 Urinalysis, Complete Comments: PATIENT WAS FASTINGPERFORMED BY: Avtal24 Jfyhhx5063 [facility] [id number] Microscopic Examination See below: (Normal) Comments: Microscopic was indicated and was performed. Nitrite, Urine Positive (Abnormal) Urobilinogen,Semi-Qn 0.2 mg/dL (Normal) Range: 0.2-1.0 Bilirubin Negative (Normal) Occult Blood Negative (Normal) Ketones Negative (Normal) Glucose Negative (Normal) Protein Negative (Normal) WBC Esterase 2+ (Abnormal) Appearance Clear (Normal) Urine-Color Yellow (Normal) pH 7.5 (Normal) Range: 5.0-7.5 Specific [place] 1.015 (Normal) Range: 1.005-1.030 :06 URINE YAIR CULTURE-IDENTIFICATN Comments: PATIENT NOT FASTINGPERFORMED BY: [facility] ShenzhenHealthsource [place]6370 [facility] [id number] Information: SRC:CARMEN (74643) Antimicrobial MIHEAD (Normal) Comments: S = Susceptible; [...] mL (Abnormal) Urine Final report Culture,Comprehensive (Abnormal) 63-Mom-161419:41 Urinalysis, Office (45748) UA - LEUKOCYTE ESTERASE Small (Normal) UA - NITRITE Negative (Normal) URINE UROBILINGN JEANNINE TIMED 2 mg/dL (Normal) UA - PROTEIN Negative mg/dL (Normal) UA - PH 7 (Normal) UA - BLOOD Negative (Normal) UA - SPECIFIC GRAVITY 1.020 (Normal) UA - KETONES Negative mg/dL (Normal) UA - BILIRUBIN Negative (Normal) UA - GLUCOSE Negative (Normal) :07 MAGNESIUM (66904) Comments: PATIENT NOT FASTINGPERFORMED BY: [facility] Dxfflv8446 [facility] [id number] Magnesium, Serum 2.1 mg/dL (Normal) Range: 1.6-2.3 :07 POTASSIUM SERUM (44762) Comments: PATIENT NOT FASTINGPERFORMED BY: [facility] Cmvfdd7849 [facility] [id number]; OV today Potassium, Serum 3.7 mmol/L (Normal) Range: 3.5-5.2 :32 Culture, Urine Comments: [facility] [address] [place], [place], [address] CUUR See Note (Normal) Comments: Urine CultureBelow infection level. ORGANISM 1: Gram negative rodColony Count <1000 :30 CBC W/Diff, Automated Comments: [facility] [address] [place], [place], [address] Absolute Lymph 1.01 {X10_3/ul} (Normal) Range: 0.83-4.51 [...] 4.2-5.4 WBC 4.0 K/mm3 (Abnormal) Range: 4.4-11.0 39-Puj-96936:30 Comprehensive Metabolic Profil Comments: [facility] Ul[address]dt[address]ruv[address] [place], [address] GAP 9 (Normal) Range: 5-15 CO2 29.0 [...] 7-18 GLU 99 mg/dL (Normal) Range: 70-110 74-Yve-78674:30 Lipid Profile Comments: [facility] Jcmnzqifpq3901 [facility] [place], [place], [address] VLDL 15 mg/dL (Normal) Range: 5-40 LDL [...] High Risk :30 Vitamin D,25 Hydroxy Comments: [facility] Ts[address]ufq[address] [place], [place], [address] Vitamin D 25-OH 40.8 ng/mL (Normal) Comments: Vitamin D 25(OH) Status Range Deficiency <20 ng/mL (50nmol/L) Insuffciency 20 - 30 ng/mL (50 - 75 nmol/L) Sufficiency 30 - 100 ng/mL (75 - 250 nmol/L) Toxicity >100 ng/mL (>250 nmol/L) 1-Vdv-301798:00 Culture, Urine Comments: [facility] [address] [place], [address] CUUR See Note (Normal) Comments: Urine CultureORGANISM [...] $ <=20 S(NF) indicates non-formulary drug at [facility]. Approval by Infectious Disease Specialist required before non-formulary drugs may be ordered and/or dispensed. 2-Mee-341392:59 CALCIFEDIOL (61004) Comments: today; PATIENT NOT FASTINGPERFORMED BY: [facility]6370 [facility] [id number] Vitamin D, 25-Hydroxy 59.8 ng/mL (Normal) Range: 30.0-100.0 Comments: Vitamin D deficiency has been defined by the [place] ofMedicine and an Endocrine Society practice guideline as alevel of serum 25-OH vitamin D less than 20 ng/mL (1,2).The Endocrine Society went on to further define vitamin Dinsufficiency as a level between 21 and 29 ng/mL (2).1. IOM ([place] of Medicine). 2010. Dietary reference intakes for calcium and D. [place]: The National Academies Press.2. Jaz MF, Chapo HOPE, Papito ROBERT, et al. Evaluation, treatment, and prevention of vitamin D deficiency: an Endocrine Society clinical practice guideline. JCEM. 2010; 96(7):1911-30. 9-Jkm-028280:59 URINE YAIR CULTURE-IDENTIFICATN Comments: PATIENT NOT FASTINGPERFORMED BY: CB [facility] Clrahg4040 [address]eta RoadDublin [place] [id number] Information: SRC: (86912) Result 1 ECV (Abnormal) Comments: Escherichia coli, [...] report Culture,Comprehensi (Abnormal) ve 14-May-20179:34 Urinalysis, Office (95722) UA - LEUKOCYTE ESTERASE Moderate (Normal) UA - NITRITE Negative (Normal) URINE UROBILINGN JEANNINE TIMED Normal mg/dL (Normal) UA - PROTEIN Negative mg/dL (Normal) UA - PH 7.5 (Normal) UA - BLOOD Non Hemolyzed Trace (Normal) UA - SPECIFIC GRAVITY 1.010 (Normal) UA - KETONES Negative mg/dL (Normal) UA - BILIRUBIN Negative (Normal) UA - GLUCOSE Negative (Normal) 93-Isi-551090:31 URINE YAIR CULTURE-JEANNINE COL Comments: PATIENT NOT FASTINGPERFORMED BY: [facility] Pvftye7886 [address] Roadblin [place] [id number] Information: SRC:CARMEN COUNT (17328) Antimicrobial MIHEAD (Normal) Comments: S = Susceptible; [...] mL (Abnormal) Urine Final report Culture,Comprehensive (Abnormal) 49-Sle-11216:59 Urinalysis, Office (74164) UA - LEUKOCYTE ESTERASE Large (Normal) UA - NITRITE Negative (Normal) URINE UROBILINGN JEANNINE TIMED Normal mg/dL (Normal) UA - PROTEIN Negative mg/dL (Normal) UA - PH 6 (Abnormal) UA - BLOOD Hemolyzed Large (Normal) UA - SPECIFIC GRAVITY 1.010 (Normal) UA - KETONES Negative mg/dL (Normal) UA - BILIRUBIN Negative (Normal) UA - GLUCOSE Negative (Normal) :12 CBC WITH MANUAL DIFF (83559) Comments: PATIENT NOT FASTINGPERFORMED BY: [facility] Kahmys2660 [facility] [id number] Immature Grans (Abs) 0.0 {x10E3/uL} (Normal) Range: [...] CREATININE RATIO Comments: PATIENT WAS FASTINGPERFORMED BY: [facility] [id number] (82127) AND (08604) Microalb/Creat Ratio 11.2 {mg/g_creat} (Normal) Range: 0.0-30.0 Microalbumin, Urine 13.2 ug/mL (Normal) Creatinine, Urine 117.4 mg/dL (Normal) :28 CALCIFEDIOL (07524) Comments: PATIENT WAS FASTINGPERFORMED BY: [facility] [id number] Vitamin D, 25-Hydroxy 68.0 ng/mL (Normal) Range: 30.0-100.0 Comments: Vitamin D deficiency has been defined by the [place] ofMedicine and an Endocrine Society practice guideline as alevel of serum 25-OH vitamin D less than 20 ng/mL (1,2).The Endocrine Society went on to further define vitamin Dinsufficiency as a level between 21 and 29 ng/mL (2).1. IOM ([place] of Medicine). 2010. Dietary reference intakes for calcium and D. [place]: The National Academies Press.2. Jaz MF, Chapo [place], Debby-Manjit ROBERT, et al. Evaluation, treatment, and prevention of vitamin D deficiency: an Endocrine Society clinical practice guideline. JCEM. 2010; 96(7):1911-30. :28 TSH (THYROID STIMULATING Comments: PATIENT WAS FASTINGPERFORMED BY: [facility] [id number] HORMONE) (84970) TSH 3.970 {uIU/mL} (Normal) Range: 0.450-4.500 :28 LIPID PANEL (48981) Comments: PATIENT WAS FASTINGPERFORMED BY: [facility]Fu[facility] ElmerGldjpn9441 [facility] [id number] LDL/HDL Ratio 1.4 {ratio_units} (Normal) Range: 0.0-3.2 [...] PANEL, COMPREHENSIVE Comments: PATIENT WAS FASTINGPERFORMED BY: Tribunat Yabwtb6718 [facility] [id number] (01597) ALT (SGPT) 25 [iU]/L (Normal) Range: 0-32 [...] Glucose, Serum 89 mg/dL (Normal) Range: 65-99 15-Xwx-47930:28 CBC, PLATELETS & AUT DIFF Comments: PATIENT WAS FASTINGPERFORMED BY: [facility] Wliygs2964 [facility] [id number] (23599) Immature Grans (Abs) 0.0 {x10E3/uL} (Normal) Range: [...] CREATININE RATIO Comments: PATIENT WAS FASTINGPERFORMED BY: [facility]henHealthsource [place]6370 [facility] [id number] (48329) AND (70297) Microalb/Creat Ratio 15.5 {mg/g_creat} (Normal) Range: 0.0-30.0 Microalbumin, Urine 8.6 ug/mL (Normal) Creatinine, Urine 55.6 mg/dL (Normal) :27 CALCIFEDIOL (85917) Comments: PATIENT WAS FASTINGPERFORMED BY: ConnectFu Wjying1498 [facility] [id number] Vitamin D, 25-Hydroxy 29.7 ng/mL (Abnormal) Range: 30.0-100.0 Comments: Vitamin D deficiency has been defined by the [place] ofAdena Regional Medical Centercine and an Endocrine Society practice guideline as alevel of serum 25-OH vitamin D less than 20 ng/mL (1,2).The Endocrine Society went on to further define vitamin Dinsufficiency as a level between 21 and 29 ng/mL (2).1. IOM ([place] of Medicine). 2010. Dietary reference intakes for calcium and D. [place]: The National Academies Press.2. Jaz MF, Chapo HOPE, Papito ROBERT, et al. Evaluation, treatment, and prevention of vitamin D deficiency: an Endocrine Society clinical practice guideline. JCEM. 2010; 96(7):1911-30. :27 LIPID PANEL (42512) Comments: PATIENT WAS FASTINGPERFORMED BY: [facility] ShenzhenHealthsource [place]6370 [facility] [id number] LDL/HDL Ratio 1.5 {ratio_units} (Normal) Range: 0.0-3.2 [...] Cholesterol, Total 176 mg/dL (Normal) Range: 100-199 05-Tah-841720:27 METABOLIC PANEL, COMPREHENSIVE Comments: PATIENT WAS FASTINGPERFORMED BY: [facility] [id number] (50574) ALT (SGPT) 22 [iU]/L (Normal) Range: 0-32 [...] Glucose, Serum 89 mg/dL (Normal) Range: 65-99 70-Zor-547026:27 CBC, PLATELETS & AUT DIFF Comments: PATIENT WAS FASTINGPERFORMED BY: [place] [id number] Information: [id number],[id number] (05525) Immature Grans (Abs) 0.0 {x10E3/uL} Range: 0.0-0.1 [...] CYTOSPIN ON FLUID See Note (Normal) Comments: [facility] [address]ks[address] [place], [place], [address] 00 Comments: Patient: YARELIS BURROWS : 1955 (60/F) Acct Num: [id number] Phys: Jacky PARDO,Carmine Tompkins Unit Num: [id number] Loc: LABSPEC Specimen: [id number] Received: 04/21/16 - 1323 Spec Type: CYSPIN FL TISSUES TISSUES: COMMENT Differential diagnosis includes infection, calculi or low-grade urothelial neoplasm. CYTOLOGY GROSS Received is 60 ml of clear yello w fluid labeled with the patient's name and and designated per the requisition as urine. Submitted for cytology preparation. 04/21/16 TC:5 CPT: 10884 CYTOLOGY STUDY Slides are reviewed. The specimen [...] Signed Osmany Velarde 04/22/16 <signature on file> 79-Zdr-179432:17 URINE YAIR CULTURE-JEANNINE COL Comments: PATIENT NOT FASTINGPERFORMED BY: [facility] Tytnni5655 [facility] [id number] Information: SRC:[facility] [id number] COUNT (36475) Result 1 CNSNSS (Abnormal) Comments: Coagulase negative [...] S Urine Final report Culture,Comprehens (Abnormal) tracey 44-Ibq-903382:10 Urinalysis, Office (39222) UA - LEUKOCYTE ESTERASE Negative (Normal) UA - NITRITE Negative (Normal) URINE UROBILINGN JEANNINE TIMED Normal mg/dL (Normal) UA - PROTEIN Negative mg/dL (Normal) UA - PH 7 (Normal) UA - BLOOD Non Hemolyzed Moderate (Normal) UA - SPECIFIC GRAVITY 1.010 (Normal) UA - KETONES Negative mg/dL (Normal) UA - BILIRUBIN Negative (Normal) UA - GLUCOSE Negative (Normal) 8-Oal-939175:54 URINE YAIR CULTURE-JEANNINE COL Comments: PATIENT NOT FASTINGPERFORMED BY: JUAN [facility] Eaknog4690 [facility] [id number] Information: SRC:[facility] [id number] COUNT (44041) Antimicrobial MIHEAD (Normal) Comments: S = Susceptible; [...] mL (Abnormal) Urine Final report Culture,Comprehensive (Abnormal) 2-Bjc-184483:41 Urinalysis, Office (48115) UA - LEUKOCYTE ESTERASE Moderate (Normal) UA [...] SHELBY 4374 4.8 ng/dL (Normal) Range: 0.0-30.0 97-Ast-730062:06 Magnesium Comments: [facility] [address] [place], [place], [address] MG 2.1 mg/dL (Normal) Range: 1.8-2.4 54-Kjm-031021:06 Potassium Comments: [facility] [address]ts[address]fpi[address] [place], [address] K 3.4 mmol/L (Abnormal) Range: 3.5-5.1 36-Sox-191600:06 Renin, Plasma Comments: [facility] (refer to report [...] 2.80 Na= >150 0.39 - 1.31Performed at: [facility] [employer] [id number] Director: Nomi Villeda MD, Phone: [phone] 79-Ucu-650069:06 Thyroid Stim Hormone (TSH) Comments: [facility] Evm[address]uhobv[address] [place], [address] TSH 1.93 {uIU/mL} (Normal) Range: 0.358-3.74 10-Apr-20158:39 Potassium Comments: Test performed at:[facility] Ajwrekogxq[address] [place] [address] K 3.6 mmol/L (Normal) Range: 3.5-5.1 77-Njv-391133:43 Aldosterone, Urine Comments: PATIENT NOT FASTINGPERFORMED BY: [facility] Zwjuvz2468 [facility]etaWestern [facility] [id number] BY: [address] [id number] Aldosterone,U, Timed 10.43 {ug/24_hr} (Normal) Range: 0.00-19.00 Comments: Adult Ranges Low Sodium Intake 20.00 - 80.00 Normal Sodium Intake 0.00 - 19.00 High Sodium Intake 0.00 - 12.00 Aldosterone U,Random 2.98 ug/L (Normal) 10-Rzd-379315:43 Cortisol, Urinary Free Comments: PATIENT NOT FASTINGPERFORMED BY: ConnectFu[address] [id number] BY: [address] [id number] Cortisol,F,ug/24hr,U 42 {ug/24_hr} (Normal) Range: 0-50 Cortisol,F,ug/L,U 12 ug/L (Normal) 26-Saz-903774:43 Potassium, 24 hr Urine Comments: PATIENT NOT FASTINGPERFORMED BY: ConnectFu[address] [id number] BY: [address] [id number] Information: C: [id number] START 5@6AM FI MARNIE Potassium, Urine 119.4 {mmol/24_hr} Range: 25.0-125.0 (Normal) Potassium, Urine 34.1 mmol/L (Normal) Renin Activity, Plasma <0.15 {ng/mL/hr} Comments: PATIENT NOT FASTINGPERFORMED BY: [address] [id number] Information: 507887,[id number] :48 (Normal) Comments: Adult Normal Salt Intake: Upright 1.31 - 3.95 Supine 0.15 - 2. 33 . Salt Excretion (Na mEq/24 hr): Na= 0 - 30 8.82 - 23.86 Na= 30 - 75 4.09 - 7.73 Na= 75 - 150 1.44 - 2.80 Na= >150 0.39 - 1.31 :58 Aldosterone LCMS, Serum Comments: PATIENT NOT FASTINGPERFORMED BY: [address] [id number] BY: [address] [id number] Aldosterone 6.0 ng/dL (Normal) Range: 0.0-30.0 : Magnesium, Serum 2.1 mg/dL (Normal) Comments: PATIENT NOT FASTINGPERFORMED BY: [facility]Co[facility] ElmerZkdpyt9911 [facility] [id number] BY: LabJeffery V[place] [address] [facility] [id number] Range: 1.6-2.6 : TSH 2.160 {uIU/mL} Comments: PATIENT NOT FASTINGPERFORMED BY: LabCoKenneth Ville 7845270 [facility] [id number] BY: LabCo[address] [id number] Inf ormation: [id number] 58 (Normal) Range: 0.450-4.500 9-Lea-969475:00 Comprehensive Metabolic Profil Comments: Test performed at:[facility] [address] [place], [place] [address] GAP 6 (Normal) Range: 5-15 CO2 32.0 [...] 7-18 GLU 92 mg/dL (Normal) Range: 70-110 5-Pmp-710131:00 Lipid Profile Comments: Test performed at:[facility] [address]udih[address] [place], [place] [address] VLDL 14 mg/dL (Normal) Range: 5-40 LDL [...] 200-240 mg/dL Borderline >240 mg/dL High Risk 34-Xsg-77379:14 Urinalysis, Office (23139) UA - LEUKOCYTE ESTERASE Trace (Normal) UA - NITRITE Negative (Normal) URINE UROBILINGN JEANNINE TIMED Normal mg/dL (Normal) UA - PROTEIN Negative mg/dL (Normal) UA - PH 7.0 (Normal) UA - BLOOD Non Hemolyzed Trace (Normal) UA - SPECIFIC GRAVITY 1.020 (Normal) UA - KETONES Negative mg/dL (Normal) UA - BILIRUBIN Negative (Normal) UA - GLUCOSE Negative (Normal) 08-Fzb-90583:55 URINE YAIR CULTURE-JEANNINE COL Comments: PATIENT NOT FASTINGPERFORMED BY: [employer] [facility] Pbgfgs8771 [facility] [id number] Information: SRC: URETHRA COUNT (05577) Result 1 MUG (Normal) Comments: Mixed urogenital flora1,000 Colonies/mL Urine Culture,Comprehensive Final report (Normal) 20-Pxq-300609:48 URINE YAIR CULTURE-JEANNINE COL Comments: PATIENT NOT FASTINGPERFORMED BY: [employer]Co Heapco2304 [facility] [id number] Information: SRC:[facility] L56510 COUNT (15626) Antimicrobial MIHEAD (Normal) Comments: S = Susceptible; [...] mL (Abnormal) Urine Final report Culture,Comprehensive (Abnormal) 53-Hzc-567273:56 Urinalysis, Office (98374) UA - LEUKOCYTE ESTERASE Large (Normal) UA [...] COL Comments: PATIENT NOT FASTINGPERFORMED BY: [facility] Fwgcht8334 [facility] [id number] Information: SRC:[facility] [id number] COUNT (82106) Result 1 ECV (Abnormal) Comments: Escherichia coli, [...] S Urine Final report Culture,Comprehensi (Abnormal) ve 9-Dnl-072370:18 Urinalysis, Office (90297) UA - LEUKOCYTE ESTERASE Large (Normal) UA - NITRITE Negative (Normal) URINE UROBILINGN JEANNINE TIMED Normal mg/dL (Normal) UA - PROTEIN 100 mg/dL (Normal) UA - PH 7 (Normal) UA - BLOOD Hemolyzed Large (Normal) UA - SPECIFIC GRAVITY 1.025 (Normal) UA - KETONES Negative mg/dL (Normal) UA - BILIRUBIN Negative (Normal) UA - GLUCOSE Negative (Normal) 65-Ixm-652928:40 POTASSIUM SERUM (14588) Comments: today; PATIENT NOT FASTINGPERFORMED BY: [facility] Ecjvwq5067 [facility] [id number] Information: [id number] Potassium, Serum 3.9 mmol/L (Normal) Range: 3.5-5.2 1-Pbm-813078:10 Comprehensive Metabolic Profil Comments: Test performed at:[facility] [address] [place], [place] [id number] GAP 4 (Abnormal) Range: 5-15 CO2 31.0 [...] 70-110 :10 Lipid Profile Comments: Test performed at:[facility] [address] [place], [place] [address] VLDL 19 mg/dL (Normal) Range: 5-40 LDL [...] Borderline >240 mg/dL High Risk :15 Magnesium (52646) Comments: today; PATIENT NOT FASTINGPERFORMED BY: [facility] ElmerRioivj1564 [facility] [id number] Magnesium, Serum 2.2 mg/dL (Normal) Range: 1.6-2.6 :15 Potassium Serum (44231) Comments: today; PATIENT NOT FASTINGPERFORMED BY: [employer] Qexpep8271 [facility] [id number] Information: [id number] Potassium, Serum 3.8 mmol/L (Normal) Range: 3.5-5.2 :48 Urinalysis, Office (22820) UA - LEUKOCYTE ESTERASE Negative (Normal) UA [...] Comments: PATIENT NOT FASTINGPERFORMED BY: JUAN [facility] Etsxpt8904 [address] [place] [id number] Information: SRC:UR [id number]; will review at appt. today COUNT (45611) Result 1 MUG (Normal) Comments: Mixed urogenital flora1,000 Colonies/mL Urine Culture,Comprehensive Final report (Normal) 46-Nrw-98643:09 Urinalysis, Office (32344) UA - LEUKOCYTE ESTERASE Negative (Normal) UA [...] CHOL 169 mg/dL (Normal) Comments: <200 mg/dL Xopsvycsh785-570 mg/dL Borderline>240 mg/dL High Risk :33 Lipid Panel (51637) Comments: PATIENT WAS FASTINGPERFORMED BY: [place] [id number] [facility] [id number] Information: [id number] LDL/HDL Ratio 1.6 {ratio_units} (Normal) Range: 0.0-3.2 LDL Cholesterol Calc 96 mg/dL (Normal) Range: 0-99 VLDL Cholesterol Damon 12 mg/dL (Normal) Range: 5-40 HDL Cholesterol 59 mg/dL (Normal) Comments: According to ATP-III Guidelines, HDL-C >59 mg/dL is considered anegative risk factor for CHD. Triglycerides 59 mg/dL (Normal) Range: 0-149 Cholesterol, Total 167 mg/dL (Normal) Range: 100-199 7-Oaz-255790:33 HEPATIC FUNCTION PANEL Comments: PATIENT WAS FASTINGPERFORMED BY: [place] [id number] [facility] [id number] (72653) ALT (SGPT) 36 [iU]/L (Abnormal) Range: 0-32 AST (SGOT) 29 [iU]/L (Normal) Range: 0-40 Alkaline Phosphatase, S 76 [iU]/L (Normal) Range: 39-117 Bilirubin, Direct 0.20 mg/dL (Normal) Range: 0.00-0.40 Bilirubin, Total 0.8 mg/dL (Normal) Range: 0.0-1.2 Albumin, Serum 4.1 g/dL (Normal) Range: 3.5-5.5 Protein, Total, Serum 6.6 g/dL (Normal) Range: 6.0-8.5 :27 METABOLIC PANEL, Comments: health screening labs; PATIENT WAS FASTINGPERFORMED BY: [place] [id number] [facility] [id number] Information: [id number] COMPREHENSIVE (68121) ALT (SGPT) 19 [iU]/L (Normal) Range: 0-32 [...] mg/dL (Normal) Range: 65-99 :27 LIPID PANEL (35644) Comments: PATIENT WAS FASTINGPERFORMED BY: [facility] ElmerSccxcs5175 [facility] [id number] LDL/HDL Ratio 3.7 {ratio_units} (Abnormal) Range: 0.0-3.2 [...] Slade M.D.January 18, 2013 at 10:24:09 AM [id number] Signed GP/GP If you are the referring physician and would like to consult with theradiologist who provided this interpretation, please contact Albania Thomas at [phone]. If this radiologist is unavailable, youwill be directed to another radiologist t o assist. If you are a patient with a question regarding this report, pleasecontactyour referring physician directly. Professional Interpretation Provided By: HESIODO, Phone ,Fax These documents contain legally protected [...] 1027 Sign b y: Armen Slade MD 56-Psf-91820:08 Metabolic Panel, Comments: today; PATIENT NOT FASTINGPERFORMED BY: [facility] ElmerAlwfgw1952 [facility] [id number] Information: [id number] Comprehensive (58183) ALT (SGPT) 29 [iU]/L (Normal) Range: 0-32 [...] mg/dL (Abnormal) Range: 65-99 :19 Urinalysis, Office (23031) UA - BILIRUBIN Negative (Normal) UA - [...] 200-240 mg/dL Borderline >240 mg/dL High Risk 1-Kew-400533:26 BILAT SCRN DIGITAL & CAD Radiology Report See Note (Normal) Comments: Exam Number: [id number] AMMOGRAPHY - BILATERAL SCREENING INDICATION:Routine annual screening [...] a Res ultCode to this exam. ADDENDUM: [id number] HPBI/MDS Reported By: DAVION BA M.D. 4-Rrp-499891:26 DEXA BONE DENSITY STUDY (HP) Radiology Report See Note (Normal) Comments: Exam Number: [id number] LINICAL:This is a 55-year-old female patient for postmenopausal screening. EXAMINATION:DUAL ENERGY X-RAY ABSORPTIOMETRY / DEXA. TECHNIQUE:Bone Density Measurements (BMD) of lumbar spine and bilateral hips were obtained using a [employer] scanner.. COMPARISON:Comparison is made with prior examination [...] Osteoporosis Foundation http://www.nof.org Reported By: ARMEN SLADE 6-Jrm-469666:40 CBC MCH 32.1 pg (Abnormal) Range: 27.0-32.0 [...] :40 PTT 29.1 s (Normal) Range: 25.2-36.2 47-Zdu-532349:10 Urinalysis, Office (56112) UA - LEUKOCYTE ESTERASE Trace (Normal) UA - NITRITE Negative (Normal) URINE UROBILINGN JEANNINE TIMED 2 mg/dL (Normal) UA - PROTEIN Negative mg/dL (Normal) UA - PH 6.5 (Normal) UA - BLOOD Negative (Normal) UA - SPECIFIC GRAVITY 1.005 (Normal) UA - KETONES Negative mg/dL (Normal) UA - BILIRUBIN Negative (Normal) UA - GLUCOSE Negative (Normal) 81-Pgo-416363:04 URINE YAIR CULTURE-JEANNINE COL Comments: PATIENT NOT FASTINGPERFORMED BY: [facility] Vnnzcd3101 [facility] [id number] Information: SRC: URINE COUNT (32766) Antimicrobial MIHEAD (Normal) Comments: S = Susceptible; [...] mL (Normal) Urine Final report (Normal) Culture,Comprehensive 83-Xqa-657852:03 Urinalysis, Office (70225) UA - LEUKOCYTE ESTERASE Small (Normal) UA - NITRITE Negative (Normal) URINE UROBILINGN JEANNINE TIMED Normal mg/dL (Normal) UA - PROTEIN Negative mg/dL (Normal) UA - PH 7.0 (Normal) UA - BLOOD Non Hemolyzed Moderate (Normal) Comments: Large UA - SPECIFIC GRAVITY 1.010 (Normal) UA - KETONES Negative mg/dL (Normal) UA - BILIRUBIN Negative (Normal) UA - GLUCOSE Negative (Normal) 1-Jmv-092342:19 Urinalysis, Office (72615) UA - LEUKOCYTE ESTERASE Negative (Normal) UA - NITRITE Negative (Normal) URINE UROBILINGN JEANNINE TIMED 2 mg/dL (Normal) UA - PROTEIN Negative mg/dL (Normal) UA - PH 7.0 (Normal) UA - BLOOD Negative (Normal) UA - SPECIFIC GRAVITY 1.010 (Normal) UA - KETONES Negative mg/dL (Normal) UA - BILIRUBIN Negative (Normal) UA - GLUCOSE Negative (Normal) 23-Mch-548525:04 Urinalysis, Office (56553) UA - BILIRUBIN Negative (Normal) UA - [...] Indication: Chest pain Chest pain : Reviewed Clinical Office Technician Letter Indication: Chest pain Chest pain : [...] : Follow up in 2 days with [facility] Indication: Nausea alone Wheezing : Follow up [...] not specified Planned Observations Metabolic Panel, Comprehensive (54614)Indication: Hypercholesteremia On: 35-Sah-87751:58 Request LIPID PANEL (38603)Indication: Hypercholesteremia On: :55 Request D-Dimer (06539)Indication: Chest pain on breathing On: 74-Rls-502407:20 Request Comments: STAT WPMJZ-LAYAHKUADXC-EBCEQ (10141)Indication: Elevated liver enzymes On: 19-Jul-20189:16 Request Parathyroid Hormone-related Peptide (PTH-rP) (87150)Indication: Hypercalcemia On: :42 Request CBC, Platelets & Auto Diff (10226)Indication: Headache On: 6-Lnu-151761:55 Request Lipid Panel (13646)Indication: Headache On: 3-Olc-188474:53 Request TSH (80544)Indication: Headache On: 6-Obi-491555:52 Request URINALYSIS, W/ MICRO (29770)Indication: Hematuria On: 8-Rdz-517986:52 Request CALCIFEDIOL (36286)Indication: Osteoporosis On: :02 Request Comments: Aug 2017 CBC, Platelets & Auto Diff (76817)Indication: GERD (gastroesophageal reflux disease) On: :01 Request Comments: Aug 2017 Metabolic Panel, Comprehensive (77576)Indication: Hypercholesteremia On: : Request Comments: Aug 2017 Lipid Panel (40248)Indication: Hypercholesteremia On: : Request Comments: Aug 2017 LIPID PANEL (00803)Indication: Hypercholesteremia On: :39 Request Comments: in six months (approximately) METABOLIC PANEL, COMPREHENSIVE (49463)Indication: Hypercholesteremia On: :39 Request Aldosterone,24-Hour Urine (19666)Indication: Hypokalemia On: :37 Request Comments: pt to take salt load by salt food POTASSIUM SERUM (71262)Indication: Hypokalemia On: :34 Request POTASSIUM SERUM (98396)Indication: Hypokalemia On: :40 Request MAGNESIUM (49546)Indication: Hypokalemia On: :55 Request POTASSIUM SERUM (01287)Indication: Hypokalemia On: :54 Request Comments: 2 weeks ALDOSTERONE (15782)Indication: Hypokalemia On: :46 Request RENIN (92903)Indication: Hypokalemia On: :46 Request TSH (THYROID STIMULATING HORMONE) (36402)Indication: Hypokalemia On: :45 Request POTASSIUM URINE (87587)Indication: Hypokalemia On: :44 Request Comments: 24 hour urine CORTISOL FREE (47068)Indication: Hypokalemia On: :44 Request Comments: 24 hour urine Aldosterone,24-Hour Urine (83851)Indication: Hypokalemia On: :43 Request POTASSIUM SERUM (70156)Indication: Hypokalemia On: :22 Request METABOLIC PANEL, COMPREHENSIVE (59825)Indication: Hypercholesteremia On: :22 Request Comments: in six months (approximately) LIPID PANEL (47732)Indication: Hypercholesteremia On: :22 Request Comments: in six months (approximately) METABOLIC PANEL, COMPREHENSIVE (31548)Indication: Hypercholesteremia On: :50 Request Comments: in six months (approximately) LIPID PANEL (17299)Indication: Hypercholesteremia On: :50 Request Comments: in six months (approximately) METABOLIC PANEL, COMPREHENSIVE (28075)Indication: Hypercholesteremia On: :45 Request LIPID PANEL (08681)Indication: Hypercholesteremia On: :45 Request CBC WITH MANUAL DIFF (89312)Indication: Hypercholesteremia On: :45 Request URINE YAIR CULTURE-IDENTIFICATN (59788)Indication: Hematuria, unspecified On: :36 Request CALCULUS CHEMICAL QUANTI (89770)Indication: History of kidney stones On: :28 Request METABOLIC PANEL, COMPREHENSIVE (76340)Indication: Elevated blood-pressure reading without diagnosis of hypertension On: 40-Gwq-425219:15 Request LIPID PANEL (50944)Indication: Elevated blood-pressure reading without diagnosis of hypertension On: 57-Hbv-526328:15 Request CALCIFIDIOL (78916) VIT D 25Indication: Osteoporosis On: 77-Bff-98145:00 Request TSH (87387)Indication: Stress reaction On: :56 Request URINALYSIS, W/ MICRO (44484)Indication: Elevated blood-pressure reading without diagnosis of hypertension On: :56 Request LIPID PANEL (11740)Indication: Elevated blood-pressure reading without diagnosis of hypertension On: :55 Request CBC WITH MANUAL DIFF (38633)Indication: Elevated blood-pressure reading without diagnosis of hypertension On: :55 Request METABOLIC PANEL, COMPREHENSIVE (09797)Indication: Osteoporosis On: :55 Request URINE YAIR CULTURE-IDENTIFICATN (95214)Indication: Hematuria, unspecified On: 22-Tyo-622707:04 Request URINALYSIS (34531)Indication: Hematuria On: 4-Egz-533334:09 Request Lipid Panel (05902)Indication: Screening for lipid disorders On: 0-Ptb-928362:09 Request CALCIFIDIOL (56263) VIT D 25Indication: Osteoporosis On: :08 Request CBC (Auto) (61490)Indication: Osteoporosis On: :07 Request Metabolic Panel, Comprehensive (21664)Indication: Osteoporosis On: :07 Request Planned Encounters Medical; 3 Month FU - On: 19-Oct-2018 8:30 Comprehensive Internal Medicine Mylene Craig CNP, CNP, Mary E Planned Procedures Echo CompleteBy: Mylene Craig CNP On: 24-Aug-2018 Intent Mylene Craig CNP COMPUTED TOMOGRAPHY ANGIOGRAPHY OF On: 04-Aug-2018 Intent CHEST FOR PULMONARY EMBOLISM (40921)By: Katarina Bourgeois CHEST XRAY, PA & LATERAL (82932)By: On: 04-Aug-2018 Intent Katarina Bourgeois Ultrasound - LiverBy: Kiara GRIFFITH, On: 10-Dec-2017 Intent Mylene León CNP SCREENING DIGITAL TOMOSYNTHESIS OF On: 10-Dec-2017 Intent BREAST (64298)By: Mylene Craig CNP, CNP, Mary E Flu Vaccine (Quadrivalent) 41545Sm: On: 27-Aug-2017 Intent Mylene Craig CNP, CNP, Mary E Comments: lot: [id number]: 03/28/18ite/route: L analilia, IMamt: 0.5mlVIS and ABN signed when applicableCarmen [facility] Ear Irrigation (64497)By: Kiara On: 27-Aug-2017 Intent Mylene GRIFFITH CNP, Mary E Comments: IrrigationSite- L and RAmount/Color/Quality - medium amount removed from L ear and minimal from RTolerated formerly [facility] hospital[facility] Bone Density StudyBy: Kiara GRIFFITH, On: 14-May-2017 Intent Mylene León CNP Comments: Repeat Oct 2017 MAMMOGRAM, SCREENING, BOTH BREAST On: 25-Aug-2016 Intent (83542)By: Manjit Musa MD Flu Vaccine (Quadrivalent) 90867Jg: On: 25-Aug-2016 Intent Manjit Musa MD Comments: Lot #[id number]/30/17ite-L dltd, IMDose prefilled syringegiven by:THERESA Cardenas and ABN signed COMP EYE EXAMINATION, ESTAB PATIENT On: 13-Jan-2016 Intent (80138)By: Mylene Craig CNP, CNP, Mylene Duenas CT - Abdomen & Pelvis (Without On: 25-Nov-2015 Intent Contrast)By: Jennifer Spencer DO Comments: tonight - stat Toradol Injection, 30 mg On: 11-Nov-2015 Intent (J1885)By: Mylene Craig CNP, CNP, Mary E Wax CurettesBy: Reagan Sharp MD On: 16-Sep-2015 Intent Ear Irrigation (19067)By: Lila On: 16-Sep-2015 Intent Reagan PARDO LIMITED GALLIUM SCAN FOR On: 22-Apr-2015 Intent LOCALIZATION OF ABSCESS (30382)By: Comments: head and neck Reagan Sharp MD Echo CompleteBy: Reagan Sharp MD On: 25-Mar-2015 Intent MAMMOGRAM, SCREENING, BOTH BREAST On: 25-Mar-2015 Intent (76348)By: Regaan Sharp MD DEXA SCAN AXIAL SKELETON (25349)By: On: 25-Mar-2015 Intent Reagan Sahrp MD Nuclear Medicine - Bone ScanBy: On: 25-Mar-2015 Intent Reagan Sharp MD EKG (58075)By: Reagan Sharp MD On: 25-Mar-2015 Intent Comments: see scanned document of test done to see results reviewed today with patient IMMUNIZ ADMNIN, 1 VAC, SNGL/COMBO On: 25-Mar-2015 Intent (46959)By: Reagan Sharp MD ZOSTER VACC, [place] (82271)By: Lila On: 25-Mar-2015 Intent Reagan PARDO Toradol Injection, 30 mg On: 15-Oct-2014 Intent (J1885)By: Mylene Craig CNP Comments: lot [id number] 10.10.1630mg right gmIMas, EMPLOYEE BENEFITS DIRECTOR GLADIS Mylene Duenas SPECIMEN HANDLING/TRANSPORT On: 15-Oct-2014 Intent (10919)By: Kiara GRIFFITH YesicaYulissa Craig CNP Yesica MAMMOGRAM, SCREENING, BOTH BREAST On: 05-Sep-2014 Intent (76670)By: Reagan Sharp MD Flu Vaccine (Quadrivalent) [id number]: On: 10-Aug-2014 Intent Adrienne Tirado LPN ADMINISTRATION OF INFLUENZA VIRUS On: 10-Aug-2014 Intent VACCINE (G0008)By: Candida MADRID, Comments: X23SP6.15prefilled syringeL Dltd, IMAS, LPNABN and VIS signed Adrienne Rocephin Injection, 2 Gram On: 09-Aug-2014 Intent (J0696)By: Corine Rice DO Comments: [id number] gmbilateral gm IMAS, LPNABN and VIS signed Wax CurettesBy: Corine Rice DO On: 09-Aug-2014 Intent Ear Irrigation (86493)By: Dwayne On: 09-Aug-2014 Corine Hunt DO Comments: b/lmoderate amount of yellow wax removed bilaterallywax curette used Ultrasound - RenalBy: Lila PARDO, On: 26-Mar-2014 Intent Reagan Martin Radiology - KUBBy: Kiara GRIFFITH Mylene On: 21-Mar-2014 Intent E Kiara GRIFFITH Yesica Comments: today Toradol Injection, 30 mg On: 21-Mar-2014 Intent (J1885)By: Mylene Craig CNP, CNP Yesica SPECIMEN HANDLING/TRANSPORT On: 21-Mar-2014 Intent (62370)By: Kiara GRIFFITH YesicaYulissa Craig CNP Yesica IMMUNIZ ADMNIN, 1 VAC, SNGL/COMBO On: 27-Jun-2013 Intent (14099)By: Reagan Sharp MD FLU VAC, SPLIT, >3 YEARS, INTRAMUSC On: 27-Jun-2013 Intent (13619)By: Reagan Sharp MD MAMMOGRAM, SCREENING, BOTH BREASTS On: 27-Jun-2013 Intent (54240)By: Reagan Sharp MD DXA, BONE DENSITY, AXIAL SKELETON On: 27-Jun-2013 Intent (60823)By: Reagan Sharp MD Eprescribed prescriptions On: 27-Jun-2013 Intent (G8553)By: Ines Jensen LPN MAMMOGRAM, SCREENING, BOTH BREASTS On: 06-Jun-2013 Intent (13652)By: Reagan Sharp MD DXA, BONE DENSITY, AXIAL SKELETON On: 06-Jun-2013 Intent (90702)By: Reagan Sharp MD Phenergan Injection, up to 50 mg On: 18-Jan-2013 Intent (J2550)By: Mylene Craig CNP, CNP, Mary E CT - Abdomen & Pelvis Stone On: 18-Jan-2013 Intent ProtocolBy: Mylene Craig CNP Comments: today Mylene GRIFFITH Toradol Injection, 30 mg On: 18-Jan-2013 Intent (J1885)By: Mylene Craig CNP, CNP, Mary E Aerosol Treatment (83565)By: Kiara On: 31-Aug-2012 Intent Mylene GRIFFITH CNP, Mary E Bone Density StudyBy: Lila PARDO, On: 25-Apr-2012 Intent Reagan Martin IMMUNIZ ADMNIN, 1 VAC, SNGL/COMBO On: 27-Jul-2011 Intent (45472)By: Reagan Sharp MD FLU VAC, SPLIT, >3 YEARS, INTRAMUSC On: 27-Jul-2011 Intent (42177)By: Reagan Sharp MD TDAP VACCINE >7 IM (91115)By: Kiara On: 20-Mar-2010 Intent Mylene GRIFFITH CNP, Mary E Comments: Lot #[id number]/24/12Site-left deltoidgiven by:[facility] EKG (13681)By: Corine Rice DO On: 09-May-2009 Intent Comments: [...] : DISCONTINUED - CBC & PLATELETS (AUTO) (96098) Indication: Bruising Elevated liver enzymes : DISCONTINUED - HEPATIC FUNCTION PANEL (82067) Indication: Elevated liver enzymes Hypercholesteremia : How to access health information online Indication: Hypercholesteremia Hypercholesteremia : How to access health information online - Detail Indication: Hypercholesteremia Hypercholesteremia : Patient Instructions Indication: Hypercholesteremia Osteoporosis : DISCONTINUED - DEXA SCAN AXIAL SKELETON (12275) Indication: Osteoporosis Hypercholesteremia : DISCONTINUED - METABOLIC PANEL, COMPREHENSIVE (47701) Indication: Hypercholesteremia Hematuria : How to access [...] Advance Directives Name Dates Details Immunization Registry [place] - Effective on 07/19/2018. Effective: 19-Jul-2018 Expiration [...] off of atrovastatin, was taking statin at [facility] Diagnosis: Hypercholesteremia, BMI 29.0-29.9,adult, Nonsmoker, Elevated liver [...] was 2009Encounter Diagnosis: WWV V73.21 (Renamed from [facility]), Osteoporosis (733.00), Hypercholesterolemia (272.0), HEART [...] Nausea alone (787.02), WWV V73.21 (Renamed from [facility]), Headache, Tension (307.81), LOW BACK [...] (733.00), GERD (530.81), WWV V73.21 (Renamed from [facility]) Comprehensive Internal Medicine Office Visit [...] (530.81), Rosacea (695.3), WWV V73.21 (Renamed from [facility]), Stress Reaction (308.4) Comprehensive Internal [...] End: 10-Dec-2008 12:12 Comprehensive Internal Medicine Payers [facility] ANA Burrows; art guarantor
--- OUTSIDE RECORDS SUMMARY | 2018-11-03 01:17 | XMS RPT_ITS ---
:1955 Author Organization OHIP Support Name Relationship Address Phone AL BURROWS [address] + [place] [address] [place] Unknown [address] + [place] [address] [place] BURROWS [address] + [place] [address] [place] Unknown [address] + [place] [address] [place]UR[place]OWS [address] + [place] [address] [place] Unknown [address] + [place] [address] [place] [address] + [place] [address] [place] Unknown [address] + [place] [address] [place]UR[place]OWS [address] + [place] [address] [place] Unknown [address] + [place] [address] [place] [address] + [place] [address] [place] Unknown [address] + [place] [address] [place] [address] + [place] [address] [place] Unknown [address] + [place] [address] [place] [address] + [place] [address] [place] Unknown [address] + [place] [address] [place] [address] + [place] [address] [facility] Unknown [address] + [place] [address] [place] [address] + [place] [address] [facility] Unknown [address] + [place] [address] [place] [address] + [place] [address] [facility] Unknown [address] + [place] [address] [place] [address] + [place] [address] [facility] Unknown [address] + [place] [address] [place] [address] + [place] [address] [facility] Unknown [address] + [place] [address] [place] [address] + [place] [address] [facility] Unknown [address] + [place] [address] [place] [address] + [place] [address] [facility] Unknown [address] + [place] [address] [place] [address] + [place] [address] [facility] Unknown [address] + [place] [address] [place] [address] + [place] [address] [facility] Unknown [address] + [place] [address] [place] [address] + [place] [address] [facility] Unknown [address] + [place] [address] [place] [address] + [place] [address] [facility] Unknown [address] + [place] [address] [place] [address] + [place] [address] [facility] Unknown [address] + [place] [address] [place] [address] + [place] [address] [facility] Unknown [address] + [place] [address] [place] [address] [address] + [place] [address] [facility] Unknown [address] + [place] [address] Care Team Providers Name Role Phone Angela Craig Attending Unavailable Corine Rice DO Referring Unavailable EleaAngela Consulting Unavailable Chidi Pagan Attending Unavailable Angela Craig Referring Unavailable Chayo Ku Attending Unavailable Angela Craig Referring Unavailable [facility] Unavailable Chayo Ku Attending Unavailable Chayo Ku Referring Unavailable Kiara Angela Primary Care Unavailable Angela Craig Attending Unavailable Angela Craig Referring Unavailable Cianaa Angela Primary Care Unavailable Chayo Ku Attending Unavailable Angela Craig Referring Unavailable Kiara Angela Primary Care Unavailable Chayo Ku Attending Unavailable Angela Craig Referring Unavailable [facility] Primary Care Unavailable Chayo Ku Attending Unavailable Chayo Ku Referring Unavailable Kiara Angela Primary Care Unavailable Angela Craig Attending Unavailable Angela Craig Referring Unavailable [facility] Primary Care Unavailable Angela Craig Attending Unavailable [facility] Unavailable Ciesa, Angela Referring Unavailable Diamond, Chidi Attending Unavailable Ciesa, Angela Referring Unavailable Ciesa, Angela Primary Care Unavailable Chepe, Chidi Attending Unavailable Diamond, Chidi Referring Unavailable Ciesa, Angela Primary Care Unavailable Chepe, Chidi Attending Unavailable Diamond, Chidi Referring Unavailable Ciesa, Angela Primary Care Unavailable Chepe, Chidi Consulting Unavailable Jenise Julian PA-C Attending Unavailable Ciesa, Angela Referring Unavailable Ciesa, Angela Primary Care Unavailable Anthony Ojeda Attending Unavailable Diamond, Chidi Referring Unavailable Katarina Bourgeois LOCAL FLATBED DRIVER-C Attending Unavailable Katarina Bourgeois LOCAL FLATBED DRIVER-C Referring Unavailable CiesaAngela Primary Care Unavailable Ciesa, Angela Primary Care Unavailable Koram, Pamela Nai Admitting Unavailable Koram, Pamela Nai Referring Unavailable Ashelfah, Ghasem Attending Unavailable Koram, Pamela Nai Admitting Unavailable Koram, Pamela Nai Attending Unavailable Koram, Pamela Nai Referring Unavailable Ciesa, Angela Primary Care Unavailable Koram, Pamela Nai Consulting Unavailable Koram, Pamela Nai Admitting Unavailable Koram, Pamela Nai Referring Unavailable CiesaAngela Primary Care Unavailable Josh Chawla Consulting Unavailable Josh Chawla Attending Unavailable Koram, Pamela Nai Admitting Unavailable Koram, Pamela Nai Referring Unavailable CiesaAngela Primary Care Unavailable Ashelfah, Ghasem Consulting Unavailable Ashrodolfo Ghasem Attending Unavailable Sammy Uriostegui Attending Unavailable Ashelfah, Ghasem Referring Unavailable Sammy Uriostegui Attending Unavailable Marcelo Sammy Referring Unavailable Ciesa, Angela Attending Unavailable Ciesa, Angela Referring Unavailable Ciesa, Angela Primary Care Unavailable Purpose Purpose PROBLEMS PROBLEMS DATE TYPE CONDITION / CODE ATTENDING STATUS SOURCE 09/27/2018 Unknown R07.9 - Chest pain, Chidi Pagan Active [place] unspecified / Community R07.9(ICD-10) Hospital Repository 08/26/2018 Unknown R07.89 - Other chest AltonisSammy evans Active [place] pain / Community R07.89(ICD-10) Hospital Repository 08/26/2018 Unknown R06.02 - Shortness MoodSammy mead Active [place] of breath / Community R06.02(ICD-10) Hospital Repository 08/26/2018 Unknown I10 - Essential MoodSammy mead Active [place] (primary) Community hypertension / Hospital I10(ICD-10) Repository 08/04/2018 Unknown R07.1 - Chest pain Katarina Bourgeois Active [place] on breathing / LOCAL FLATBED DRIVER-C [facility] R07.1(ICD-10) Hospital Repository 01/25/2018 Unknown K80.10 - Calculus of Chidi Mo Active [place] gallbladder with [facility] chronic Hospital cholecystitis Repository without obstruction / K80.10(ICD-10) 03/08/2018 Unknown Z01.810 - Encounter Anthony Ojeda Active [place] for preprocedural [facility] cardiovascular Hospital examination / Repository Z01.810(ICD-10) 12/31/2017 Unknown Z12.31 - Encounter Angela Craig Active [place] for screening [facility] mammogram for Hospital malignant neoplasm Repository of breast / Z12.31(ICD-10) 03/11/2018 Unknown M25.641 - Stiffness Chicmelbailee, Active [place] of right hand, not Chayo [facility] elsewhere classified Hospital / M25.641(ICD-10) Repository 12/16/2017 Unknown R74.8 - Abnormal Angela Craig Active [place] levels of other [facility] serum enzymes / Hospital R74.8(ICD-10) Repository 10/21/2017 Unknown M81.0 - Age-related Angela Craig Active [place] osteoporosis without Community current pathological Hospital fracture / Repository M81.0(ICD-10) 10/20/2017 Unknown M65.30 - Trigger Chicorelli, Active [place] finger, unspecified Chayo [facility] finger / Hospital M65.30(ICD-10) Repository PROCEDURES PROCEDURES No Procedure Records FoundVITAL SIGNS VITAL SIGNS No Vital Signs Records FoundRESULTS RESULTS ECHOCARDIOGRAM COMPLETE Observed: 09/07/2018 Status: F Source: [place] 4:20 PM [facility] REPOSITORY [facility] Cardiovascular Services [address] [place] [address] Echo Complete 09/07/18 1511 MR#: [id number] Acct: [id number] Name: YARELIS BURROWS Rep #: [id number] : 1955 63 From: Chidi Pagan MD Attending Dr: Angela Craig NP Status: REG CLI Ordering Dr: Angela Craig LOCAL FLATBED DRIVER-C Date: 09/07/18 Location: [facility] Sex: F C Admitted: Reason For Study: SOB Procedure This was a 2D Doppler, Color Flow transthoracic echocardiogram. Exam performed in department. Left Ventricle Normal size and thickness. The estimated ejection fraction is 65 %. Stage 2 diastolic dysfunction. No regional wall motion abnormalities noted. Right Ventricle Normal size and thickness. Normal systolic function. Atria Normal left atrium. Normal right atrium. Normal atrial septum. Mitral Valve The mitral valve is structurally normal. No prolapse or stenosis seen. Mild (1+) mitral valve insufficiency. Tricuspid Valve Normal tricuspid valve. Mild (1+) tricuspid valve insufficiency. Right ventricular systolic pressure estimated to be 31 mmHg. Aortic Valve Trisinus/trileaflet aortic valve. Mild diffuse aortic valve thickening. Trivial aortic valve insufficiency. Pulmonic Valve Normal pulmonic valve. Trivial pulmonic valve insufficiency. Great Vessels Normal aortic root. Normal arch. Normal inferior vena cava. Inferior vena cava collapse with sniff. Pericardium/Pleural No pericardial effusion. MMode/2D Measurements AND Calculations LVIDd: 3.9 cm IVSd: 1.1 cm Ao root diam: 2.9 cm LVIDs: 2.7 cm LVPWd: 0.78 cm RVDd: 3.2 cm FS: 32.1 % LAV(MOD-bp): 54.6 ml LVAd ap4: 30.7 cm2 SV(MOD-sp4): 63.1 ml LAV(MOD-bp) Indexed: 29.9 ml/m2 EDV(MOD-sp4): 94.4 ml LAV(MOD-sp2): 62.3 ml EDV(sp4-el): 99.7 ml LAV(MOD-sp4): 46.6 ml LVAs ap4: 15.3 cm2 ESV(MOD-sp4): 31.4 ml ESV(sp4-el): 33.4 ml EF(MOD-sp4): 66.8 % EF(sp4-el): 66.5 % SV(sp4-el): 66.4 ml LA A4 area: 17.3 cm2 LA dimension(2D): 3.8 cm RA A4 area: 15.6 cm2 Time Measurements MV dec time: 0.19 sec Doppler Measurements AND Calculations MV E max zulema: 102.6 cm/sec Lat Peak E' Zulema: 9.6 cm/sec Med Peak E' Zulema: 7.8 cm/sec MV A max zulema: 98.8 cm/sec E/E' lat: 10.6 E/E' med: 13.1 MV E/A: 1.0 Ao V2 max: 176.2 cm/sec AI max zulema: 385.7 cm/sec LV V1 max: 152.0 cm/sec Ao max P.4 mmHg AI max P.5 mmHg LV V1 max P.2 mmHg AI [...] 04/08/2015, no appreciable changes noted. Ordering Physician: Angela Craig Referring Physician: Angela Craig Performed By: Gissel Cloeman RDCS 09/07/18 1620 Date Chidi Pagan MD CC: Angela Craig LOCAL FLATBED DRIVER Date Dictated: 09/07/18 1511 Date Transcribed: 09/07/18 162 Staff Therapist: Signed 12 LEAD ELECTROCARDIOGRAM Observed: 08/11/2018 Status: F Source: [place] 4:08 PM [facility] REPOSITORY [facility] Cardiovascular Services [address] [place] [address] 12 Lead EKG 08/06/181931 MR#: [id number] Acct: [id number] Name: YARELIS BURROWS Rep #: [id number] : 1955 63 From: Sammy Uriostegui MD Attending Dr: Mark Byers Status: DIS LUIGI Ordering Dr: Pamela Grimes MD Date: 08/06/18 Location: [facility] Sex: F C Admitted: 08/06/18 Test Reason : CP ADMISSION Blood Pressure : / mmHG Vent. Rate : 069 BPM Atrial Rate : 069 BPM P-R Int : 138 ms QRS Dur : 090 ms QT Int : 388 ms P-R-T Axes : 050 035 033 degrees QTc Int : 415 ms Normal sinus rhythm Normal ECG Confirmed by SAMMY URIOSTEGUI MD ([id number]), food editor CAITLIN NIELSON ([id number]) on 08/11/2018 4:08:02 PM Referred By: Pamela Grimes Confirmed By:SAMMY URIOSTEGUI MD 08/11/18 1608 Date Sammy Uriostegui MD CC: Angela Craig NP; Mark Byers; Pamela Grimes MD Signed 12 LEAD ELECTROCARDIOGRAM Observed: 08/11/2018 Status: F Source: [place] 3:59 PM [facility] REPOSITORY [facility] Cardiovascular Services [address] [place] [address] 12 Lead EKG 08/08/18 0514 MR#: [id number] Acct: [id number] Name: YARELIS BURROWS Rep #: [id number] : 1955 63 From: Sammy Uriostegui MD Attending Dr: Mark Byers Status: DIS LUIGI Ordering Dr: Pamela Grimes MD Date: 08/08/18 Location: [facility] Sex: F C Admitted: 08/06/18 Test Reason : AM EKG Blood Pressure : / mmHG Vent. Rate : 065 BPM Atrial Rate : 065 BPM P-R Int : 154 ms QRS Dur : 100 ms QT Int : 400 ms P-R-T Axes : 061 031 033 degrees QTc Int : 416 ms Normal sinus rhythm Normal ECG Confirmed by SAMMY URIOSTEGUI MD ([id number]), food editor CAITLIN NIELSON ([id number]) on 08/11/2018 3:59:30 PM Referred By: Pamela Grimes Confirmed By:SAMMY URIOSTEGUI MD 08/11/18 1559 Date Sammy Uriostegui MD CC: Angela Craig NP; Mark Byers; Pamela Grimes MD Signed 12 LEAD ELECTROCARDIOGRAM Observed: 08/09/2018 Status: F Source: [place] 10:09 AM [facility] Cardiovascular Services [address] [place] [address] 12 Lead EKG 08/06/18 1655 MR#: [id number] Acct: [id number] Name: YARELIS BURROWS Rep #: [id number] : 1955 63 From: Sammy Uriostegui MD Attending Dr: Mark Byers Status: DIS LUIGI Ordering Dr: Laurie Garber MD Date: 08/06/18 Location: [facility] Sex: F C Admitted: 08/06/18 Test Reason : CP Blood Pressure : / mmHG Vent. Rate : 078 BPM Atrial Rate : 078 BPM P-R Int : 146 ms QRS Dur : 092 ms QT Int : 378 ms P-R-T Axes : 058 044 047 degrees QTc Int : 430 ms Normal sinus rhythm Normal ECG Confirmed by MARCELO PARDO, SAMMY ([id number]), food editor CAITLIN NIELSON ([id number]) on 08/09/2018 10:09:18 AM Referred By: Pamela Grimes Confirmed By:SAMMY URIOSTEGUI MD 08/09/18 1009 Date Sammy Uriostegui MD CC: Angela Craig NP; Mark Byers; Laurie Garber MD; Pamela Grimes MD Signed DISCHARGE SUMMARY Observed: 08/08/2018 Status: F Source: [place] 11:07 AM [facility] Medical Records Department [address] [place] [address] Discharge Summary 08/08/18 0957 MR#: [id number] Acct: [id number] Name: YARELIS BURROWS Rep #: [id number] : 1955 63 From: Jacqui ECKERT PCP: Angela Craig NP Status: DIS LUIGI Y Location: [place] [address] <ChavezJacqui - Last Filed: 08/08/18 10:05> Discharge Date and Diagnosis Date of Admission: 08/06/18 Date of Discharge: 08/08/18 - Primary Discharge Diagnosis Active and Suspected Problems (Last Reviewed 02/01/18 @ 08:53 by Venita Cuello) 1. Chest pain, ACS ruled out - Secondary Discharge Diagnosis Chronic Problems (Last Reviewed 02/01/18 @ 08:53 by Venita Cuello) Hypertension Hyperlipidemia Osteoporosis Hospital Course and Treatment Imaging Results: Diagnostic Data Chest X-Ray 08/06/18 17:05 IMPRESSION: Normal x-ray examination of the chest. Electronically Signed: Maico Lehman MD at 17:44 EDT , Service support , Operations: None Procedures: Stress test Summary of Care Provided: The patient is a 63 year old F admitted 08/06/2018 due to chest pain. 1. Chest pain-patient reports significant family history of heart disease. Troponin negative. EKG without ST-T changes. Stress test without evidence of ischemia. ACS ruled out. Recommend trial of PPI if patient continues to have intermittent chest discomfort to see if this improves her symptoms. 2. Hypertension-stable, continue home Norvasc regimen. 3. Hyperlipidemia-continue statin. Fasting lipid panel within normal limits. 4. Osteoporosis-on Fosamax regimen weekly. General: Alert, Oriented x3, Cooperative, No apparent distress HEENT: Atraumatic, PERRLA, EOMI, Normocephalic Neck: Supple, No JVD, Negative Carotid Bruits Lungs: Clear to auscultation, Normal air movement Cardiovascular: Regular rate, Regular Rhythm, Normal S1, Normal S2, No murmurs Abdomen: Bowel Sounds Present, Soft, Non Tender, Non-Distended Extremities: No clubbing, No cyanosis, No edema, Capillary Refill Less than 3 Seconds Skin: No rashes, No breakdown Musculoskeletal: No Tenderness to Palpation of Joints or Extremities Neurological: Cranial nerves II-XII grossly intact, Neuro grossly intact Psych/Mental Status: Normal Affect, Appropriate Patient seen exam prior to discharge. Physical assessment as noted above. Patient stable for discharge home with follow-up with primary care physician in 1 week. This patient was seen by TOMEKA Marcial under the supervision of Dr. Byers. - Physical Exam Vital Signs Temp Pulse Resp BP Pulse Ox 97.8 F 77 18 118/72 95 08/08/18 08:50 08/08/18 08:50 08/08/18 08:50 08/08/18 08:50 08/08/18 08:50 Oxygen Flow Rate (L/min) 2 Oxygen Delivery Method Room Air Weight: 172 lb 9.951 oz Body Mass Index (BMI) 29.6 Intake and Output for Last 24 Hours Intake Total 480 / 480 1080 / 1080 Balance 480 / 480 1080 / 1080 Laboratory Tests Past 24 Hrs Discharge Diet: No Restrictions Discharge Activity: Return to Normal Activity Call your doctor if you observe: Shortness of breath, Dizziness, Fainting spells, Chest pain Home Medications: Medications to take at Discharge coenzyme Q10 200 mg capsule 200 mg PO DAILY 10/15/17 atorvastatin 20 mg tablet 10 mg PO QDAY tab 12/30/17 cholecalciferol (vitamin D3) 10,000 unit capsule 10,000 unit PO QDAY 12/30/17 Calcium Carbonate [Calcium] 600 mg PO BID 01/19/18 Alendronate Sodium [Fosamax] 70 mg PO QWEEK 08/06/18 Amlodipine [Norvasc] 2.5 mg PO DAILY 08/06/18 Magnesium 500 mg PO DAILY 08/06/18 Primary Care Physician: Angela Craig NP-C [Primary Care Provider] - Please follow up with your Primary Care Physician in: 1 Week Disposition: Home Minutes spent on discharge:: 35 Patient Condition:: Stable Medical Necessity - Tobacco Use Smoking Status: Never smoker Tobacco Use: Non-smoker Meaningful Use Info Meaningful Use Diagnoses (Choose all that apply): None applicable <Mark Byers - Last Filed: 08/08/18 11:07> Discharge Date and Diagnosis - Secondary Discharge Diagnosis Chronic Problems (Last Reviewed 02/01/18 @ 08:53 by Venita Cuello) Esophageal reflux (Chronic) Hospital Course and Treatment Imaging Results: 08/08/18 08:00 Nuclear Stress Test - Treadmil [NM] Routine Summary of Care Provided: Hospitalist note: Discharge summary above reviewed and I agree with the above discharge plan. Patient was admitted for intermittent chest pain that has been going on for couple of weeks. It was atypical for ACS. Her initial and repeat EKG was unremarkable without evidence of acute ischemic changes. Troponin was negative x3. Chest x-ray showed no acute findings. She underwent nuclear stress test that reported as negative without evidence of stress-induced myocardial ischemia. Acute coronary syndrome ruled out. Her routine blood work was unremarkable. Her vital signs were stable throughout admission. Lipid profile revealed normal cholesterol, LDL and HDL cholesterol at target. Her symptoms could be due to musculoskeletal pain. Patient discharged home in a stable medical condition, recommended to use [id number] Tylenol or Aleve for pain control as needed, recommended follow-up with PCP in 1 week. - Physical Exam General: Alert, Oriented x3, Cooperative, No apparent distress. HEENT: Atraumatic, PERRLA, EOMI. Neck: Supple, No JVD, Negative Carotid Bruits, Trachea Midline, Thyroid Normal. Lungs: Clear to auscultation, Normal air movement, No rhonchi, No wheeze, No rales. Cardiovascular: Regular rate, Regular Rhythm, Normal S1, Normal S2, PMI Normal. Abdomen: Bowel Sounds Present, Soft, Non Tender, Non-Distended, No Hepato-splenomegaly. Extremities: No clubbing, No cyanosis, No edema Skin: No rashes, No breakdown Neurological: Neuro grossly intact Vital Signs are stable. This note was generated with [employer] dictation software. It may contain incorrect words, spelling, and punctuation that were not noted in checking the note before signing. - Physical Exam Vital Signs Temp Pulse Resp BP Pulse Ox 97.8 F 77 18 118/72 95 08/08/18 08:50 08/08/18 08:50 08/08/18 08:50 08/08/18 08:50 08/08/18 08:50 Oxygen Flow Rate (L/min) 2 Oxygen Delivery Method Room Air Weight: 172 lb 9.951 oz Body Mass Index (BMI) 29.6 Intake and Output for Last 24 Hours Intake Total 480 / 480 1080 / 1080 Balance 480 / 480 1080 / 1080 Laboratory Tests Past 24 Hrs Code Visit OBSV Yulissa RODRIGUEZ M: [id number] Observation care discharge 08/08/18 1006 <Electronically signed by Jacqui CARRASQUILLOC> Date Jacqui CARRASQUILLOC 08/08/18 1107<Electronically signed by Mark Byers MD> Cosigner Signature (if applicable): Date Mark Byers MD CC: Angela Craig NP; TOMEKA Byrne; angela craig; Mark Byers Signed DISCHARGE INSTRUCTION Observed: 08/08/2018 Status: F Source: [place] 9:53 AM [facility] Medical Records Department [address] [place] [address] Instructions for Home/Discharge Instructions 08/08/18 0951 MR#: [id number] Acct: [id number] Name: YARELIS BURROWS Rep #: [id number] : 1955 63 From: Jacqui ECKERT PCP: Angela Craig NP Status: ADM LUIGI - Discharge Diagnoses Current Active Problems: Current Active and Chronic Problems (Last Reviewed 02/01/18 @ 08:53 by Venita Cuello) Chest pain (Acute) You will use the following diet at home:: No restrictions Discharge Activity: Return to Normal Activity Call your doctor if you observe: Shortness of breath, Dizziness, Fainting spells, Chest pain Allergies/Adverse Reactions: Allergies lidocaine Adverse Reaction (Verified 08/06/18 16:47) Itching Medications to take at Discharge coenzyme Q10 200 mg capsule 200 mg PO DAILY 10/15/17 atorvastatin 20 mg tablet 10 mg PO QDAY tab 12/30/17 cholecalciferol (vitamin D3) 10,000 unit capsule 10,000 unit PO QDAY 12/30/17 Calcium Carbonate [Calcium] 600 mg PO BID 01/19/18 Alendronate Sodium [Fosamax] 70 mg PO QWEEK 08/06/18 Amlodipine [Norvasc] 2.5 mg PO DAILY 08/06/18 Magnesium 500 mg PO DAILY 08/06/18 Primary Care Physician: Angela Craig NP-C [Primary Care Provider] - Please follow up with your Primary Care Physician in: 1 Week Test Results: Test results from this visit will be discussed in further detail at your follow-up appointment, if applicable. Proposed Discharge Date: 08/08/18 08/08/18 0953 <Electronically signed by Jacqui ECKERT> Date Jacqui ECKERT CC: Angela Craig NP STRESS REPORT Observed: 08/08/2018 Status: F Source: [place] 9:18 AM [facility] REPOSITORY [facility] Cardiovascular Services [address] [place] [address] MR#: [id number] Acct: [id number] Name: YARELIS BURROWS Rep #: [id number] : 1955 63 From: Sammy Uriostegui MD Primary Care: Angela Craig NP Status: ADM LUIGI Ordering Dr: Sex: F Iram Stress Test Report Date: 08/08/2018 Procedure: Exercise tolerance test/imaging study Indications: Chest pain Consent: Per the patient Procedure: The patient exercised on a Tony protocol for 7 minutes completing Stage II and 1 minute of Stage III achieving a peak heart rate of 150 bpm (96 % predicted maximal heart rate) with a peak blood pressure 154/68 mmHg and a peak MET capacity of 8 METs. The baseline ECG demonstrated normal sinus rhythm. The peak exercise ECG demonstrated no obvious ECG changes. There was a rare PVC during recovery. The functional capacity was considered average. There was no complaint of chest discomfort during exercise or recovery. The examination was discontinued secondary to neck discomfort. Impression: 1. Technically adequate (percent predicted maximal heart rate greater than 85%) exercise tolerance test 2. Peak exercise ECG with no obvious ECG changes 3. There was a rare PVC during recovery 4. Nuclear images pending Myocardial perfusion imaging study: Technique: The patient was injected with 11.9 mCi of technetium 99m Cardiolite and subsequently rest SPECT Cardiolite nuclear imaging was obtained in the horizontal long, vertical long, and short axis views. The patient exercised on a Tony protocol for 7 minutes completing Stage II and 1 minute of Stage III achieving a peak heart rate of 150 bpm (96 % predicted maximal heart rate) with a peak blood pressure 154/68 mmHg and a peak MET capacity of 8 METs. The patient was injected with 34.2 mCi of technetium 99m Cardiolite and subsequently stress SPECT Cardiolite nuclear imaging was obtained in the horizontal long, vertical long, and short axis views. A gated Cardiolite study at peak stress was obtained. Interpretation: Rest and stress SPECT Cardiolite nuclear imaging status post realignment, normalization, and attenuation correction, demonstrates the appearance of relative uniform tracer uptake and myocardial perfusion appearing within normal limits. There is end systolic thickening and brightening. The gated Cardiolite study demonstrates myocardial thickening and inward wall motion. The reported LVEF is 78 %. Impression: 1. Rest and stress SPECT Cardiolite nuclear imaging demonstrate relative uniform tracer uptake and myocardial perfusion appearing within normal limits. 2. The gated Cardiolite study reports an LVEF of 78 %. This note was generated with ContextPlaneation software. It may contain incorrect words, spelling, and punctuation that were not noted in checking the note before signing. 08/08/18917 <Electronically signed by Sammy Uriostegui MD> Date Sammy Uriostegui MD CC: Angela Craig NP; Mark Byers; Pamela Grimes MD Date Dictated: 08/08/18911 Date Transcribed: 08/08/18911 Staff Therapist: PM Signed BASIC METABOLIC Collected: 08/08/2018 Status: F Source: [place] PROFILE (BMP) 5:10 AM [facility] REPOSITORY TYPE CODE TESTS RESULT OUT OF RANGE REFERENCE UNITS LAB L501.0100 74-106 mg/dL Normal GLU 88 Result Comment: Please note revised GLUCOSE reference range effective 2017. LAB L501.1000 7-18 mg/dL Normal BUN 17 LAB L501.1100 0.55-1.02 mg/dL Normal CREAT,SERUM 0.77 Result Comment: The validity of the calculated GFR AND GFRAA in patients over 70 years has not been determined. Clinical correlation is essential. LAB L501.1110 >60 mL/min Normal EST GFR 81 Result Comment: Non- GFR Calc LAB L501.1115 >60 mL/min Normal EST GFR - AA 98 Result Comment: GFR Calc LAB L501.1255 ml/min Normal Estimated CRCL 63.74 LAB L501.1300 10-20 RATIO High BUN/CRE 22.2 LAB L501.2200 8.5-10 mg/dL Normal .1 CA 8.5 LAB L501.5300 136-14 mmol/L Normal 5 NA 144 LAB L501.5600 3.5-5. mmol/L Normal 1 K 3.8 LAB L501.5900 98-107 mmol/L Normal CL 106 LAB L501.6100 21.0-3 mmol/L Normal 2.0 CO2 29.0 LAB L501.6200 5-15 Normal GAP 9 Performed By: #### L500.2500 #### [facility] [address] [place], [address] CBC W/DIFF, AUTOMATED Collected: 08/08/2018 Status: F Source: [place] 5:10 AM [facility] REPOSITORY TYPE CODE TESTS RESULT OUT OF RANGE REFERENCE UNITS LAB L100.1000 4.4-11.0 K/mm3 Normal WBC 4.6 LAB L100.1200 4.2-5.4 M/mm3 Low RBC 3.96 LAB L100.1300 12.0-15.0 g/dl Normal HGB 12.2 LAB L100.1400 37-47 % Low HCT 35.5 LAB L100.1500 81-99 fL Normal MCV 89.6 LAB L100.1600 27.0-32.0 pg Normal MCH 30.8 LAB L100.1700 32-36 g/gl Normal MCHC 34.4 LAB L100.1810 11.6-14.6 % Normal RDW CV 11.7 LAB L100.1820 35.1-43.9 fl Normal RDW SD 37.7 LAB L100.1900 150-450 K/mm3 Normal PLT 192 LAB L100.2000 6.2-12.0 fl Normal MPV 10.4 LAB L100.2100 47-70 % Normal NEUT% 52.8 LAB L100.2200 19-41 % Normal LY% 34.1 LAB L100.2300 0-10 % Normal MONO% 8.7 LAB L100.2400 0-5 % Normal EO% 3.3 LAB L100.2500 0-1 % Normal BASO% 0.9 LAB L100.2550 0.0-0.9 % Normal IM GRAN % 0.200 Result Comment: IG% - Immature Granulocytes (promyelocytes, myelocytes and metamyelocytes) > 1% indicates that a LEFT SHIFT is Present. LAB L100.2620 2.0-7.7 X10 3/uL Normal Absolute Neut 2.4 LAB L100.2720 0.83-4.51 X10 3/ul Normal Absolute Lymph 1.56 Performed By: #### L100.0100 #### [facility] [address], [place], [id number] PROTHROMBIN TIME W/INR Collected: 08/08/2018 Status: F Source: [place] 5:10 AM [facility] REPOSITORY TYPE CODE TESTS RESULT OUT OF RANGE REFERENCE UNITS LAB L300.4150 11.7-14.9 SECONDS Normal PROTIME 13.4 LAB L300.4200 Normal INR 1.0 Performed By: #### L300.3900, L300.4310 #### [facility] [address], [place], [id number] PARTIAL THROMBOPLAST Collected: 08/08/2018 Status: F Source: [place] TIME 5:10 AM [facility] REPOSITORY TYPE CODE TESTS RESULT OUT OF RANGE REFERENCE UNITS LAB L300.4310 24.1-36.2 Seconds Normal PTT 34.7 Performed By: #### L300.3900, L300.4310 #### [facility] [address] [facility] [place], [address] CBC W/DIFF, AUTOMATED Collected: 08/07/2018 Status: F Source: [place] 5:15 AM [facility] REPOSITORY TYPE CODE TESTS RESULT OUT OF RANGE REFERENCE UNITS LAB L100.1000 4.4-11.0 K/mm3 Normal WBC 5.0 LAB L100.1200 4.2-5.4 M/mm3 Low RBC 4.09 LAB L100.1300 12.0-15.0 g/dl Normal HGB 12.3 LAB L100.1400 37-47 % Low HCT 36.7 LAB L100.1500 81-99 fL Normal MCV 89.7 LAB L100.1600 27.0-32.0 pg Normal MCH 30.1 LAB L100.1700 32-36 g/gl Normal MCHC 33.5 LAB L100.1810 11.6-14.6 % Normal RDW CV 11.8 LAB L100.1820 35.1-43.9 fl Normal RDW SD 37.9 LAB L100.1900 150-450 K/mm3 Normal PLT 191 LAB L100.2000 6.2-12.0 fl Normal MPV 10.7 LAB L100.2100 47-70 % Normal NEUT% 57.7 LAB L100.2200 19-41 % Normal LY% 29.1 LAB L100.2300 0-10 % Normal MONO% 9.2 LAB L100.2400 0-5 % Normal EO% 2.8 LAB L100.2500 0-1 % Normal BASO% 1.0 LAB L100.2550 0.0-0.9 % Normal IM GRAN % 0.200 Result Comment: IG% - Immature Granulocytes (promyelocytes, myelocytes and metamyelocytes) > 1% indicates that a LEFT SHIFT is Present. LAB L100.2620 2.0-7.7 X10 3/uL Normal Absolute Neut 2.9 LAB L100.2720 0.83-4.51 X10 3/ul Normal Absolute Lymph 1.46 Performed By: #### L100.0100 #### [facility] [address] [place], [place], [address] BASIC METABOLIC Collected: 08/07/2018 Status: F Source: [place] PROFILE ([facility]) 5:15 AM [facility] REPOSITORY TYPE CODE TESTS RESULT OUT OF RANGE REFERENCE UNITS LAB L501.0100 74-106 mg/dL Normal GLU 92 Result Comment: Please note revised GLUCOSE reference range effective 2017. LAB L501.1000 7-18 mg/dL Normal BUN 18 LAB L501.1100 0.55-1.02 mg/dL Normal CREAT,SERUM 0.76 Result Comment: The validity of the calculated GFR AND GFRAA in patients over 70 years has not been determined. Clinical correlation is essential. LAB L501.1110 >60 mL/min Normal EST GFR 81 Result Comment: Non- GFR Calc LAB L501.1115 >60 mL/min Normal EST GFR - AA 98 Result Comment: GFR Calc LAB L501.1255 ml/min Normal Estimated CRCL 64.58 LAB L501.1300 10-20 RATIO High BUN/CRE 23.5 LAB L501.2200 8.5-10 mg/dL Normal .1 CA 8.5 LAB L501.5300 136-14 mmol/L Normal 5 NA 144 LAB L501.5600 3.5-5. mmol/L Normal 1 K 3.8 LAB L501.5900 98-107 mmol/L High CL 108 LAB L501.6100 21.0-3 mmol/L Normal 2.0 CO2 28.0 LAB L501.6200 5-15 Normal GAP 8 Performed By: #### L500.2500 #### [facility] [address] [place], [address] LIPID PROFILE Collected: 08/07/2018 Status: F Source: [place] 5:15 AM [facility] REPOSITORY TYPE CODE TESTS RESULT OUT OF RANGE REFERENCE UNITS LAB L501.4900 200 mg/dL Normal CHOL 154 Result Comment: <200 mg/dL Desirable 200-240 mg/dL Borderline >240 mg/dL High Risk LAB L501.5000 mg/dL Normal TRIG 115 Result Comment: The drugs N-Acetylcysteine and Metamizole may falsely depress this assay. Serum Triglycerides Reference Interval Normal <150 mg/dL Borderline high 150 - 199 mg/dL High 200 - 499 mg/dL Very High > or = 500 mg/dL LAB L501.6400 mg/dL Normal HDL 49 Result Comment: The drugs N-Acetylcysteine and Metamizole may falsely depress this assay. Reference Range HDL <40 mg/dL Low HDL Cholesterol HDL >or= 60 mg/dL High HDL Cholesterol LAB L501.6500 0-130 mg/dL Normal LDL 82 LAB L501.6600 5-40 mg/dL Normal VLDL 23 Performed By: #### L500.4100 #### [facility] [address] [place], [address] EMERGENCY DEPARTMENT Observed: 08/06/2018 Status: F Source: [place] SUMMARY 11:03 PM [facility] REPOSITORY [facility] Medical Records Department [address] [place] [address] Emergency Department Summary 08/06/18 1707 MR#: [id number] Acct: [id number] Name: YARELIS BURROWS Rep #: [id number] : 1955 63 From: Laurie Garber MD PCP: Angela Craig NP Status: ADM LUIGI - ER Visit Summary Date of Service: 08/06/18 Chief Complaint: Chest pain History of Present Illness: The patient is a 63 F with a 2- week history of waxing and waning chest pain. It seems to come on with exertion and better with rest. She has had some intermittent shortness of breath as well. She was seen by her PCP this week and had a normal d-dimer. She is scheduled for a CT scan of her chest in the upcoming weeks. Patient does have family history of coronary disease. She did take 1 tab of extra strength Excedrin earlier today which contains 250 mg of aspirin. Physical Examination: Blood pressure is 162/84, other vitals normal. Patient sitting upright in bed no acute distress. Head neck examination is unremarkable. Heart is regular rate and rhythm. Lung sounds clear. Chest wall is nontender. Abdomen is soft nontender. Lower extremity examination reveals no significant calf tenderness or edema. Test Results: EKG is sinus at 78 with no sign of acute ischemia. Portable chest x-ray unremarkable. CBC and chemistry studies are significant for potassium 3.2. Troponin is negative. Emergency Department Course and Treatment: Patient did take aspirin earlier today. Test results were discussed with patient as well as at bedside. She did have a d-dimer earlier this week that was negative. I did express concern that the patient's symptoms certainly do sound cardiac and she has a strong family history of cardiac disease. Symptoms have seemed to progress and worsen over the past 2 weeks. I recommended hospitalization for cycling of enzymes and stress test, which she understands cannot be performed until Wednesday morning. Treatment Plan: [] Disposition: Admit Impression: 1. Chest pain 2. Hypokalemia This note was generated with ServiceGems dictation software. It may contain incorrect words, spelling, and punctuation that were not noted in review of the chart prior to signing ED Disposition - Plan for ED Patient: Chief Complaint: Chest Pain Referrals: Angela Craig, LOCAL FLATBED DRIVER-C [Primary Care Provider] - What to do if you have Problems For any increased pain, shortness of breath, bleeding, nausea or vomiting, chest pain, or any unexpected problems, contact your Primary Care Provider. Call [facility] ([phone]) or report to the closest Emergency Room. Call 911 if necessary. 08/06/18 2303 <Electronically signed by Laurie Garber MD> Date Luarie Garber MD Cosigner Signature (If Indicated): Date CC: Angela Criag NP TROPONIN-I Collected: 08/06/2018 Status: F Source: [place] 10:43 PM [facility] REPOSITORY Order Comment: 'TROP' Serial specimen #1, #2 or #3: 3 TYPE CODE TESTS RESULT OUT OF RANGE REFERENCE UNITS LAB L501.4010 <0.045 ng/mL Normal < 0.015 TROPONIN-I Result Comment: TROPONIN-I EXPECTED VALUES <0.045 Negative 0.045 - 0.590 Consistent with Cardiac Damage > OR = 0.600 Critical Value Not every elevated troponin is indicative of [place]. These values should be used with clinical judgement in examining the patient's clinical picture for diagnosis. To establish a diagnosis of [place] versus myocardial injury, there must be a demonstrated rise and/or fall in the troponin values, in addition to ischemic symptoms, EKG changes, new regional wall motion abnormality, and/or angiographical evidence. PLEASE NOTE: REFERENCE RANGES EDITED 18 Performed By: #### L501.4010 #### [facility] [place], [address] TROPONIN-I Collected: 08/06/2018 Status: F Source: [place] 8:06 PM [facility] REPOSITORY Order Comment: 'TROP' Serial specimen #1, #2 or #3: 2 'TROP' Serial specimen #1, #2, #3, or #4: 2 TYPE CODE TESTS RESULT OUT OF RANGE REFERENCE UNITS LAB L501.4010 <0.045 ng/mL Normal < 0.015 TROPONIN-I Result Comment: TROPONIN-I EXPECTED VALUES <0.045 Negative 0.045 - 0.590 Consistent with Cardiac Damage > OR = 0.600 Critical Value Not every elevated troponin is indicative of [place]. These values should be used with clinical judgement in examining the patient's clinical picture for diagnosis. To establish a diagnosis of [place] versus myocardial injury, there must be a demonstrated rise and/or fall in the troponin values, in addition to ischemic symptoms, EKG changes, new regional wall motion abnormality, and/or angiographical evidence. PLEASE NOTE: REFERENCE RANGES EDITED 18 Performed By: #### L501.4010 #### [facility] [address] [place], [address] HISTORY AND PHYSICAL Observed: 08/06/2018 Status: F Source: [place] EXAM 7:23 PM [facility] REPOSITORY [facility] Medical Records Department [address] [place] [id number] History and Physical 08/06/18 1819 MR#: [id number] Acct: [id number] Name: YARELIS BURROWS Rep #: [id number] : 1955 63 From: Pamela Grimes MD PCP: Angela Craig NP Status: ADM LUIGI Y Location: [place] [address] Problem List (1) Chest pain Status: Acute History of Present Illness Date of Admission: 08/06/18 Chief Complaint: chest pain The patient is a 63 year old F with a history of hypertension and hyperlipidemia. She was admitted with a complaint of chest pain which has been going on for about 2 weeks. Was retrosternal, pressure-like, radiating to her back and aggravated by exertion. She denied any history of shortness of breath or lightheadedness or dizziness. Chest pain was resolving so she decided to come in. She was recently started on amlodipine by her PCP on account of elevated blood pressure. She has a strong family history of CAD as her brother and father both had CABG and mother and aunt are diabetic and the rest of her family are hypertensive. In the ED, EKG was normal sinus rhythm with no acute ST changes initial troponin was negative. She is being admitted to be managed for chest pain to rule out ACS. [] Past Medical History Past Medical History (Chronic Problems): Chronic Problems (Last Reviewed 02/01/18 @ 08:53 by Venita Cuello) Esophageal reflux (Chronic) Medical History: Medical History (Last Reviewed 02/01/18 @ 08:53 by Venita Cuello) Esophageal reflux (Chronic) K21.9 History of hysterectomy Z90.710 Hyperlipidemia E78.5 History of hysterectomy Z98.890, Z90.710 2004 Allergies lidocaine Adverse Reaction (Verified 08/06/18 16:47) Itching Home Medications: Ambulatory Orders Medication Instructions Recorded Surgical History: Surgical History (Last Reviewed 02/01/18 @ 08:53 by Venita Cuello) History of appendectomy Z90.49 History of tonsillectomy Z90.89 S/P laparoscopic cholecystectomy Z90.49 4/18 Trigger finger, right middle finger M65.331 History of tonsillectomy Z98.890, Z90.89 1960 S/P appendectomy Z90.49 1978 Trigger finger M65.30 right thumb Surgical History: appendectomy ARCHEOLOGIST History: No pertinent ARCHEOLOGIST history Lives: Spouse/ Significant Other Smoking Status: Never smoker Alcohol: Occasional Drugs: None - *Family History Paternal Family History: Family History (Last Reviewed 02/01/18 @ 08:53 by Venita Cuello) Father CVA (cerebral vascular accident) Hypertension Heart disease Mother Hypertension Breast cancer High cholesterol Brother Heart disease Sister Diabetes Aunt Diabetes History Items: Heart Disease - brother and father both had CABG, Hypertension Maternal Family History: Family History (Last Reviewed 02/01/18 @ 08:53 by Venita Cuello) Father CVA (cerebral vascular accident) Hypertension Heart disease Mother Hypertension Breast cancer High cholesterol Brother Heart disease Sister Diabetes Aunt Diabetes History Items: Diabetes, Hypertension Review of Systems Constitutional: Denies: Chills, Fever, Weight Change Eyes: Denies: Blurred vision HEENT: Denies: Head Aches, Sinus Congestion, Sinus Drainage Cardiovascular: Reports: Chest Pain, Chest Pressure. Denies: Chest Tightness, Edema, Orthopnea, Palpitations, Paroxysmal Noc. Dyspnea, Syncope Respiratory: Denies: Cough, Shortness of breath at rest, Sputum production Gastrointestinal: Denies: Abdominal Pain, Nausea, Vomiting Genitourinary: Denies: Dysuria Musculoskeletal: Denies: Joint Pain, Joint Tenderness Skin: Denies: Rash, Wounds Neurological: Denies: Numbness, Tingling, Focal weakness Psychiatric: Denies: Anxiety, Depression, Homicidal Ideations, Suicidal Ideations Hematologic/ Lymphatic: Denies: Easy Bruising, Easy Bleeding VTE Information - Inpt Only VTE Present on Admission: No VTE Pharm Prophylaxis ordered?: Yes Patient Problems: Active and Suspected Problems (Last Reviewed 02/01/18 @ 08:53 by Venita Cuello) Chest pain (Acute) - Physical Exam General: Alert, Oriented x3, Cooperative, No apparent distress HEENT: Atraumatic, PERRLA, EOMI, Normocephalic Neck: Supple, No JVD, Negative Carotid Bruits Lungs: Clear to auscultation, Normal air movement, No rhonchi, No wheeze, No rales Cardiovascular: Regular rate, Regular Rhythm, Normal S1, Normal S2, No murmurs Abdomen: Bowel Sounds Present, Soft, Non Tender, Non-Distended, No Hepato-splenomegaly Extremities: No clubbing, No cyanosis, No edema, Capillary Refill Less than 3 Seconds Skin: No rashes, No breakdown Musculoskeletal: No Tenderness to Palpation of Joints or Extremities Lymphatic: No Cervical, Supraclavicular, or Inguinal Adenopathy Neurological: Cranial nerves II-XII grossly intact Psych/Mental Status: Normal Affect, Appropriate, Alert and oriented to time, place, person, mood and affect Vital Signs Temp Pulse Resp BP Pulse Ox 98.3 F 71 18 155/90 H 99 08/06/18 16:45 08/06/18 18:14 08/06/18 18:14 08/06/18 18:14 08/06/18 18:14 Oxygen Flow Rate (L/min) 2 Oxygen Delivery Method Nasal Cannula Weight: 175 lb 11.335 oz Body Mass Index (BMI) 30.1 Laboratory Tests Past 24 Hrs WBC 7.4 RBC 4.16 L Hgb 12.3 Hct 37.0 MCV 88.9 MCH 29.6 MCHC 33.2 RDW 12.0 RDW Differential 38.4 Diagnostic Data Chest X-Ray 08/06/18 17:05 IMPRESSION: Normal x-ray examination of the chest. Electronically Signed: Maico Lehman MD at 17:44 EDT , Service support , Assessment/Plan All Active Problems (Last Reviewed 02/01/18 @ 08:53 by Venita Cuello) Chest pain (Acute) Calculus of gallbladder with chronic cholecystitis without obstruction (Acute) 63 y/o female presenting with a complaint of chest pain for 2 weeks 1. Exertional chest pain to rule out ACS * chest pain retrosternal, worsened by exertion. * no history of [place] or CAD * admit to PCU with telemetry * initial troponin negative; cycle troponins * lipid panel; check A1C * aspirin 81mg daily, SL nitroglycerin prn * stress test on Wednesday * 2. Hypertension: on amlodipine. will continue 3. Hyperlipidemia: on statin DVT prophylaxis: heparin Code status: * full code. * Patient counseled extensively about different types of CODE STATUS including full code, DNR CCA and DNR CCA. Patient elects to be full code. Total [id number] time 16 minutes. Code Visit OBSV E AND M: 62593 Initial observation care L2 Procedures: 76044 Advncd Care Plan 30 Min 08/06/18 1923 <Electronically signed by Pamela Grimes MD> Date Pamela Grimes MD Cosigner Signature: Date (if applicable) CC: Angela Craig LOCAL FLATBED DRIVER; Pamela Grimes MD Signed CBC W/DIFF, AUTOMATED Collected: 08/06/2018 Status: F Source: [place] 5:15 PM [facility] REPOSITORY TYPE CODE TESTS RESULT OUT OF RANGE REFERENCE UNITS LAB L100.1000 4.4-11.0 K/mm3 Normal WBC 7.4 LAB L100.1200 4.2-5.4 M/mm3 Low RBC 4.16 LAB L100.1300 12.0-15.0 g/dl Normal HGB 12.3 LAB L100.1400 37-47 % Normal HCT 37.0 LAB L100.1500 81-99 fL Normal MCV 88.9 LAB L100.1600 27.0-32.0 pg Normal MCH 29.6 LAB L100.1700 32-36 g/gl Normal MCHC 33.2 LAB L100.1810 11.6-14.6 % Normal RDW CV 12.0 LAB L100.1820 35.1-43.9 fl Normal RDW SD 38.4 LAB L100.1900 150-450 K/mm3 Normal PLT 192 LAB L100.2000 6.2-12.0 fl Normal MPV 10.5 LAB L100.2100 47-70 % High NEUT% 70.1 LAB L100.2200 19-41 % Low LY% 18.6 LAB L100.2300 0-10 % Normal MONO% 9.5 LAB L100.2400 0-5 % Normal EO% 1.4 LAB L100.2500 0-1 % Normal BASO% 0.3 LAB L100.2550 0.0-0.9 % Normal IM GRAN % 0.100 Result Comment: IG% - Immature Granulocytes (promyelocytes, myelocytes and metamyelocytes) > 1% indicates that a LEFT SHIFT is Present. LAB L100.2620 2.0-7.7 X10 3/uL Normal Absolute Neut 5.2 LAB L100.2720 0.83-4.51 X10 3/ul Normal Absolute Lymph 1.37 Performed By: #### L100.0100 #### [facility] [address] [place], [place], [address] BASIC METABOLIC Collected: 08/06/2018 Status: F Source: [place] PROFILE (BMP) 5:15 PM [facility] REPOSITORY TYPE CODE TESTS RESULT OUT OF RANGE REFERENCE UNITS LAB L501.0100 74-106 mg/dL Normal GLU 101 Result Comment: Fasting Glucose result from 100 to 125 mg/dL suggests IMPAIRED HOMEOSTASIS per A.D.A. criteria. Please note revised GLUCOSE reference range effective 2017. LAB L501.1000 7-18 mg/dL Normal BUN 16 LAB L501.1100 0.55-1.02 mg/dL Normal CREAT,SERUM 0.78 Result Comment: The validity of the calculated GFR AND GFRAA in patients over 70 years has not been determined. Clinical correlation is essential. LAB L501.1110 >60 mL/min Normal EST GFR 79 Result Comment: Non- GFR Calc LAB L501.1115 >60 mL/min Normal EST GFR - AA 95 Result Comment: GFR Calc LAB L501.1255 ml/min Normal Estimated CRCL 62.92 LAB L501.1300 10-20 RATIO High BUN/CRE 20.4 LAB L501.2200 8.5-10 mg/dL Normal .1 CA 8.8 LAB L501.5300 136-14 mmol/L Normal 5 NA 143 LAB L501.5600 3.5-5. mmol/L Low 1 K 3.2 LAB L501.5900 98-107 mmol/L Normal CL 107 LAB L501.6100 21.0-3 mmol/L Normal 2.0 CO2 31.0 LAB L501.6200 5-15 Normal GAP 5 Performed By: #### L500.2500, L501.4010 #### [facility] [address] [place], [address] TROPONIN-I Collected: 08/06/2018 Status: F Source: [place] 5:15 PM [facility] REPOSITORY TYPE CODE TESTS RESULT OUT OF RANGE REFERENCE UNITS LAB L501.4010 <0.045 ng/mL Normal < 0.015 TROPONIN-I Result Comment: TROPONIN-I EXPECTED VALUES <0.045 Negative 0.045 - 0.590 Consistent with Cardiac Damage > OR = 0.600 Critical Value Not every elevated troponin is indicative of [place]. These values should be used with clinical judgement in examining the patient's clinical picture for diagnosis. To establish a diagnosis of [place] versus myocardial injury, there must be a demonstrated rise and/or fall in the troponin values, in addition to ischemic symptoms, EKG changes, new regional wall motion abnormality, and/or angiographical evidence. PLEASE NOTE: REFERENCE RANGES EDITED 18 Performed By: #### L500.2500, L501.4010 #### [facility] [address] [place], [address] HEMOGLOBIN A1C Collected: 08/06/2018 Status: F Source: [place] 5:15 PM [facility] REPOSITORY TYPE CODE TESTS RESULT OUT OF RANGE REFERENCE UNITS LAB L501.9985 4.2-6.3 % Normal HGB A1C 5.6 Performed By: #### L501.9985 #### [facility] [address] [place], [address] CHEST 1 VIEW Observed: 08/06/2018 Status: F Source: [place] (PORTABLE) 5:04 PM [facility] REPOSITORY [facility] Imaging Services [address] [place] [address] Chest 1 View (Portable) MR#: [id number] Acct: [id number] Name: YARELIS BRUROWS Rep #: [id number] : 1955 F 63 From: Maico Lehman MD PCP: Angela Craig NP Status: REG ER Study: Chest 1 View (Portable) Date of Exam: 08/06/18 Exam# [id number] Ordering Dr: Laurie Garber MD STUDY: X-RAY CHEST REASON FOR EXAM: Female, 63 years old. Chest pain hypertension TECHNIQUE: Single AP portable view of the chest. COMPARISON: Study done 2 days ago. FINDINGS: Scoliosis of the thoracic spine. The lungs [...] 17:44 EDT , Service support , CC: Angela Craig NP; Laurie Garber MD Staff Therapist: Signed CHEST PA AND LATERAL Observed: 08/04/2018 Status: F Source: [place] 12:41 PM [facility] REPOSITORY [facility] Imaging Services [address] [place] [address] Chest PA and Lateral MR#: [id number] Acct: [id number] Name: YARELIS BURROWS Rep #: [id number] : 1955 F 63 From: Maico Lehman MD PCP: Angela Craig NP Status: REG CLI Study: Chest PA and Lateral Date of Exam: 08/04/18 Exam# [id number] Ordering Dr: Katarina Bourgeois STUDY: X-RAY CHEST REASON FOR EXAM: Female, [...] are no acute findings in the chest. Electronically Signed: Maico Lehman MD at 20:27 EDT , Service support , CC: Angela Craig NP; LOCAL FLATBED DRIVER-C Katarina Bourgeois Staff Therapist: Signed D-DIMER QUANTITATIVE Collected: 08/04/2018 Status: F Source: [place] (DVT/PE) 12:29 PM [facility] REPOSITORY TYPE CODE TESTS RESULT OUT OF RANGE REFERENCE UNITS LAB L300.8000 0.27-0.49 FEU/ug/m Normal D-DIMER 0.27 QUANT Result Comment: NORMAL D-Dimer level (<0.50) indicates no DVT or PE. Performed By: #### L300.8000 #### [place] [facility] [address] [place], [address] OT D/C SUMMARY Observed: 03/10/2018 Status: F Source: [place] 2:02 PM [facility] REPOSITORY [facility] Occupational Therapy [facility] [address] [place], [place] [address] Fax REHABILITATION SERVICES DISCHARGE SUMMARY MR#: [id number] Acct: [id number] Name: YARELIS BURROWS Rep #: [id number] : 1955 62 From: Marlene Sexton Referring Dr.: Chayo Ku DO Status: REG RCR Eval Date: Discharge Date: HP - OT D/C Summary It has been my pleasure to treat YARELIS BURROWS under orders from Chayo Ku DO, for the diagnosis of R MR release for a total of 8 visit(s). She was to follow up at beginning of January and did not return. She will be d/c'd on this date. Please see the following information for a summary of their discharge status. - Objective Objective/Function: Measurements taken uoon last visit: ROM of R MF are as follows: R MCP 0-69, PIP 0-100, DIP 3-67; L MCP 0-67, PIP 0-96, 0-65. ROM similar R vs L. Stiffness present but Pt. is able to straighten actively. 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 She has progressed from time of inital eval with all measurements. 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 She has progressed nicely but is still worried about stiffness. ROM of R MF vs L MF are similar. Geodetic Computator is to continue to progress through use and strengthening protocol through HEP. SHe is to call with questions/concerns. - D/C Information If there are questions or concerns regarding this patient's occupational therapy, please fell free to call me at [phone]. Thank you for the referral of this patient. Sincerely, Marlene Sexton <Electronically signed by Marlene Sexton > 03/10/18 1402 CC: Angela Craig LOCAL FLATBED DRIVER; Chayo Ku DO KMB Signed SURGERY VISIT REPORT Observed: 02/02/2018 Status: F Source: [place] 12:57 [facility] REPOSITORY [facility] [address] [place] [address] OFFICE VISIT Date of Service: 02/01/18 MR#: [id number] Acct: [id number] Name: YARELIS BURROWS Rep #: [id number] : 1955 Provider: Jenise Julian PA-C Age/Sex: 62/F Location: [facility] Status: Signed Intake Intake Visit Reasons: f/u paulino 01/25/2018 dp Fire Information Officer Required: No Is patient in pain?: No Allergies lidocaine Adverse Reaction (Verified 02/01/18 08:53) Itching Medications coenzyme Q10 200 mg capsule 200 mg PO DAILY 10/15/17 [History Confirmed 02/01/18] atorvastatin 20 mg tablet 10 mg PO QDAY tab 12/30/17 [History Confirmed 02/01/18] cholecalciferol (vitamin D3) 10,000 unit capsule 10,000 unit PO QDAY 12/30/17 [History Confirmed 02/01/18] Calcium Carbonate [Calcium] 600 mg PO BID 01/19/18 [History Confirmed [...] vascular accident) Hypertension Heart disease Mother Hypertension Breast cancer High cholesterol Brother Heart disease Sister Diabetes Aunt Diabetes Social History Smoking Status: Never smoker HPI HPI HPI: YARELIS BURROWS, is a 62 F I am following for RUQ pain. Dr. Mo performed a laparoscopic cholecystectomy on 01/25/18. Patient tolerated the procedure well. Patient denies nausea, vomiting. She notes appetite has returned to normal. She notes bowel habits are normal. Pathology demonstrated chronic cholecystitis and cholelithiasis. Exam GI Inspection: normal to inspection, incision (c/d/i. No erythema or infection noted.) Palpation: soft Auscultation: normal bowel sounds Assessment AND Plan Problems 1. Calculus of gallbladder with chronic cholecystitis without obstruction K80.10 Plan - Follow-up as needed Coding Level of Care Code Global Post Op Diagnoses Calculus of gallbladder with chronic cholecystitis without obstruction K80.10 02/02/18 1257 <Electronically signed by Jenise Julian PA-C> Date Jenise Julian PA-C Cosigner Signature: Date (if applicable) CC: Angela Craig NP OPERATIVE REPORT Observed: 01/25/2018 Status: F Source: [place] 3:48 PM [facility] REPOSITORY [facility] Medical Records Department [address] [place] [address] Operative Report 01/25/18 1134 MR#: [id number] Acct: [id number] Name: YARELIS BURROWS Rep #: [id number] : 1955 62 From: Chidi Mo MD PCP: Angela Craig NP Status: [facility] Y Location: [facility] Problem List (1) Calculus of gallbladder with chronic cholecystitis without obstruction Status: Acute Report of Operation Date of Procedure: 01/25/18 Pre-Operative Diagnosis: k 80.10 calculus of the gallbladder with chronic cholecystitis without obstruction Post-Operative Diagnosis: Same Surgery/Procedure Performed:: 23239 laparoscopic cholecystectomy Type of Anesthesia:: General Anesthesiologist: David Berry Description of Procedure: Patient was brought into the operating room and placed in the supine position. Under excellent general anesthetic the abdomen was sterilely prepped and draped in the usual fashion. Local was injected infraumbilically and dissection was carried down to the fascia the fascia was grasped with a [place] varies needle was placed inside the abdomen the abdomen was insufflated to 15 torr a 10/12 trocar was placed without difficulty. Patient was placed in the head up and rotated to the left position. A subxiphoid #5 trocar was placed, inferior to this another #5 trocar was placed, and laterally a #5 trocar was placed. All these under direct visualization without injury to underlying structures. Patient was placed in the head up and rotated to the left position. Fundus of the gallbladder was grasped retracted in cephalad direction. I dissected out the cystic duct. Base hemoclips proximally and distally and ligated the duct. Identified the cystic artery I pulled the close node down and place hemoclips proximally and distally on the artery and ligated the artery. I deliver the gallbladder from the gallbladder bed with use of electrocautery I had no spillage of bile or stones. I placed a specimen and specimen bag delivered through the umbilical port. I irrigated the right upper quadrant good hemostasis was noted. I remove the trochars under direct visualization good hemostasis was noted. I closed the fascia the umbilical port with a [id number] stitch of 0 Vicryl. Skin incisions were closed with subcuticular stitches of 4-0 Monocryl. Steri-Strips are applied sterile dressings were applied the patient tolerated the procedure well. - Admit VTE Documentation VTE Present on Admission: No VTE Mechan Device Prophylaxis: SCD's VTE Pharm Prophylaxis ordered?: No Reason prophylaxis not ordered:: Treatment Not Indicated 01/25/18 1548 <Electronically signed by Chidi Mo MD> Date Chidi Mo MD CC: Angela Craig LOCAL FLATBED DRIVER; Chidi Mo MD Signed DISCHARGE INSTRUCTION Observed: 01/25/2018 Status: F Source: [place] 11:33 AM [facility] REPOSITORY [facility] Medical Records Department [address] [place] [address] Instructions for Home/Discharge Instructions 01/25/18 1133 MR#: [id number] Acct: [id number] Name: YARELIS BURROWS Rep #: [id number] : 1955 62 From: Chidi oM MD PCP: Angela Craig NP Status: REG [facility] Discharge Diet: Light diet - advance as tolerated Discharge Activity: May Not Drive - for 2-3 days or while taking narcotic pain medications., - - Do not drive, work heavy equipment or sign legal documents for 24 hours. May shower in (days): 1 - with the bandage in place. Additional Activity Instructions:: Pain medication may cause [...] remove dressing, leave Steri-Strips on until your follow-up appointment, or until the Steri-Strips fall off on their own. Allergies/Adverse Reactions: Allergies lidocaine Adverse Reaction (Verified 01/19/18 11:28) Itching Medications to [...] PRN PRN 4 Days #30 tab 01/25/18 The following prescriptions were given: Oxycodone HCl/Acetaminophen [Percocet 5/325] 1 - 2 tab PO Q4H PRN PRN 4 Days #30 tab PRN Reason: Pain Primary Care Physician: Angela Craig [Primary Care Provider] - Please Follow Up With: Chidi Mo MD - Please call [phone] to schedule an appointment. When: 7 days after your surgery. 01/25/18 2583 <Electronically signed by Chidi Mo MD> Date Chidi Mo MD CC: Angela Craig LOCAL FLATBED DRIVER GALLBLADDER Observed: 01/25/2018 Status: F Source: [place] 12:00 AM [facility] REPOSITORY Patient: YARELIS BURROWS : 1955 (62/F) Acct Num: [id number] Phys: Chepe PARDO,Chidi Unit Num: [id number] Loc: [facility] Specimen: [id number] Received: 01/25/181515 Spec Type: GALLBLADDE TISSUES TISSUES: Gallbladder, NOS GROSS DESCRIPTION Received is one container labeled with the patient's name and designated gallbladder. The specimen consists of a gallbladder measuring 9.5 cm in length and up to 4 cm in diameter. The external surface is pink-watson, smooth and glistening for the most part. Focally it is granular, hemorrhagic and contains cautery artifact. The gallbladder contains four variable size greenish-brown stones and stone fragments measuring in aggregate 2.5 x 2.5 x 1.5 cm and 0.5 to 1.5 cm in greatest dimension. The mucosa is bile-stained and without any mass lesions. The gallbladder wall measures up to 0.2 cm in thickness. Machine Ironer sections from the gallbladder and the cystic duct are submitted in one cassette. / SJ:trevor 01/25/18 TC:3 CPT: 30885 HEADER OPERATION: Laparoscopic cholecystectomy PRE-OP DIAGNOSIS: Calculus of gallbladder with chronic cholecystitis without obstruction TISSUE SUBMITTED: Gallbladder MICROSCOPIC DESCRIPTION Slides are reviewed. MICROSCOPIC DIAGNOSIS Gallbladder: Chronic cholecystitis and cholelithiasis. SJ:trevor 01/26/18 Signed Osmany Velarde 01/26/18 <signature on file> Performed By: #### PGALL #### [place] [facility] [address] [place], [place] [address] [place], [address] 12 LEAD ELECTROCARDIOGRAM Observed: 01/21/2018 Status: F Source: [place] 11:35 AM [facility] REPOSITORY [facility] Cardiovascular Services [address] [place] [address] 12 Lead EKG 01/20/18 0837 MR#: [id number] Acct: [id number] Name: YARELIS BURROWS Rep #: [id number] : 1955 62 From: Anthony Ojeda MD Attending Dr: Chidi Mo MD Status: PRE SDC Ordering Dr: Chidi Mo MD Date: 01/20/18 Location: [facility] Sex: F C [...] ECG Confirmed by ANTHONY OJEDA MD ([id number]), food editor CAITLIN NIELSON ([id number]) on 01/21/2018 11:35:11 AM Referred By: Chidi Mo Confirmed By:ANTHONY OJEDA MD 01/21/18 1135 Date Anthony Ojeda MD CC: Angela Craig LOCAL FLATBED DRIVER; Chidi Mo MD Signed CBC-COMPLETE BLOOD CNT Collected: 01/20/2018 Status: F Source: [place] NO DIFF 8:18 AM [facility] REPOSITORY TYPE CODE TESTS RESULT OUT OF RANGE REFERENCE UNITS LAB L100.1000 4.4-11.0 K/mm3 Low WBC 3.3 LAB L100.1200 4.2-5.4 M/mm3 Low RBC 4.11 LAB L100.1300 12.0-15.0 g/dl Normal HGB 12.6 LAB L100.1400 37-47 % Low HCT 36.3 LAB L100.1500 81-99 fL Normal MCV 88.3 LAB L100.1600 27.0-32.0 pg Normal MCH 30.7 LAB L100.1700 32-36 g/gl Normal MCHC 34.7 LAB L100.1810 11.6-14.6 % Normal RDW CV 12.2 LAB L100.1820 35.1-43.9 fl Normal RDW SD 38.1 LAB L100.1900 150-450 K/mm3 Normal PLT 167 LAB L100.2000 6.2-12.0 fl Normal MPV 11.2 Performed By: #### L100.0500 #### [facility] [address] [place], [address] SCREENING MAMM (CAD), Observed: 12/31/2017 Status: F Source: [place] BILAT 2:23 PM [facility] REPOSITORY [facility] Imaging Services [address] [place] [address] SCREENING MAMM (CAD), BILAT MR#: [id number] Acct: [id number] Name: YARELIS BURROWS Rep #: [id number] : 1955 F 62 From: Fransisco Aaron MD PCP: Angela Craig NP Status: REG CLI Study: SCREENING MAMM (CAD), BILAT Date of Exam: 12/31/17 Exam# [id number] Ordering Dr: Angela Craig MAMMOGRAPHY - BILATERAL SCREENING 3-D ENIO SYNTHESIS REASON FOR EXAM: Female, 62 years old. Bilateral Screening 3-D tomosynthesis PERTINENT HISTORY: Mother with breast cancer.. TECHNIQUE: 2-D mammograms and 3-D Enio synthesis of the breast (s) were performed. CAD was performed. COMPARISON: 10/29/2016 FINDINGS: The breast composition is heterogeneously dense that can obscure small breast masses. Scattered benign calcifications are seen. No dense spiculated masses or suspicious microcalcifications are identified. No architectural distortion is identified. There is no skin thickening or retraction. There has been no significant change since the prior study. HPBI/SCREENING MAMM (CAD), BILAT IMPRESSION: No mammographic signs of malignancy. Routine yearly mammograms recommended. ASSESSMENT CATEGORY: BIRADS Category 2: Benign. A letter regarding these results will be sent to the patient by the facility within 30 days. FOLLOW UP RECOMMENDATION: Yearly follow up mammogram recommended. (A) Approximately 10% of breast cancers are not detected by mammography. A normal mammogram should not delay biopsy of a clinically suspicious abnormality. Electronically Signed: Teja Aaron MD at 9:34 EDT , Service support , CC: Angela Craig NP Staff Therapist: Signed SURGERY VISIT REPORT Observed: 12/30/2017 Status: F Source: [place] 2:03 PM [facility] [address] [address] [place] [address] OFFICE VISIT Date of Service: 12/30/17 MR#: [id number] Acct: [id number] Name: YARELIS BURROWS Rep #: [id number] : 1955 Provider: Chidi Mo MD Age/Sex: 62/F Location: [facility] Status: Signed Intake Vital Signs12/30/17 Height 5 ft 4 in 12/30/17 Weight: 177 lb Intake Visit Reasons: cholelithiasis Fire Information Officer Required: No Is patient in pain?: No Allergies No Known Allergies Allergy (Verified 12/30/17 13:23) Medications coenzyme Q10 200 mg capsule 200 mg PO ONCE 10/15/17 [History Confirmed 12/30/17] atorvastatin 20 mg tablet 10 mg PO QDAY tab 12/30/17 [History Confirmed 12/30/17] cholecalciferol (vitamin D3) 10,000 unit capsule 10,000 unit PO QDAY 12/30/17 [History Confirmed 12/30/17] PFSH Medical History Esophageal reflux (Chronic) Hyperlipidemia (Chronic) Surgical History History of appendectomy (Acute) History of hysterectomy (Acute) History of tonsillectomy (Acute) Trigger finger, right middle finger (Resolved) History of hysterectomy (Inactive) History of tonsillectomy (Inactive) S/P appendectomy (Inactive) Trigger finger (Inactive) Family History Father CVA (cerebral vascular accident) Hypertension Heart disease Mother Hypertension Breast cancer High cholesterol Brother Heart disease Sister Diabetes Aunt Diabetes Social History Smoking Status: Never smoker HPI HPI HPI: YARELIS STORMY, is a 62 F who presents to the office today for evaluation of cholelithiasis. Patient was seen by her primary care physician and had some routine liver function tests which were elevated. She subsequently stopped her statin and a gallbladder ultrasound was obtained. This was completed at [facility] on 12/16/2017. This showed a normal distended gallbladder. The gallbladder wall was slightly thickened and measured 3.3 mm. There was negative Rowland sign. There was no pericholecystic fluid. There were multiple echogenic structures within the gallbladder consistent with multiple gallstones. Patient has been having increasing gas and [...] eye injury, eye surgery, swollen glands or hoarseness Endo Endocrine: No thyroid disease, diabetes mellitus, thyroid cancer, Hair loss, heat intolerance or cold intolerance Skin Skin: No rash or changing moles Breast Breast: No left breast lump, right breast lump, nipple discharge, breast pain, abnormal [...] stools Oni Hematologic: No blood thinners, No blood disorders, No bleeding, No anemia, No blood clots Neuro Neurologic: No system reviewed and no additional complaints, except as docu, No as per HPI, No abnormal walking, No abnormal hearing, No abnormal movements, No abnormal speech, No behavioral changes, No burning sensations, No confusion, No seizure-like activity, No unsteadiness, No dizziness, No localized weakness, No frequent falls, No headache(s), No lack of coordination, No loss of vision, No memory loss, No numbness, No other visual disturbances, No radiating pain, No restless legs, No sensory deficit, No fainting, No tingling, No tremor(s), No weakness, No other Exam Const General: well developed, no acute distress, well hydrated Orientation: oriented to person, oriented to place, oriented to time [facility] Head: normocephalic, atraumatic Ears: external ears normal Mouth: moist mucous membranes Eyes Sclera: sclerae normal Pupils: normal by confrontation Neck Neck: no lymphadenopathy noted Neck mass: No Thyroid: symmetrical, thyroid normal Chest Chest palpation AND inspection: normal inspection of the chest Breast Palpation: No nipple discharge Resp Effort AND Inspection: normal respiratory effort Auscultation: clear to auscultation bilaterally Percussion: percussion normal Cardio Rate: regular rate Rhythm: regular rhythm Heart Sounds: no murmurs GI Palpation: soft, tender, no masses, no hepatosplenomegaly Auscultation: normal bowel sounds Rectal Exam: other Other: Rectal exam deferred. Extrem General: no clubbing, cyanosis or edema, normal to inspection Assessment AND Plan Problems 1. Calculus of gallbladder with chronic cholecystitis without obstruction K80.10 Plan Reviewed the anatomy with the patient and discussed the procedure: laparoscopic cholecystectomy with possible cholangiograms, possible open. Review risks including but not limited to bleeding, infection, hernia, bile leak, retained gallstones requiring another procedure ERCP- Endoscopic Retrograde Cholangiopancreatography, injury to another organ (bile ducts, common bile duct, small bowel, etc.) and [...] is warranted to remove it. I reviewed with her that her biggest risk with not removing it would be gallstone pancreatitis although the incidence of that probably is not significantly high. Coding Level of Care Code Off vis,new,level 3 Diagnoses Calculus of gallbladder with chronic cholecystitis without obstruction K80.10 Cholelithiasis location: gallbladder Cholecystitis acuity: chronic 12/30/17 1403 <Electronically signed by Chidi Mo MD> Date Chidi Mo MD Cosigner Signature: Date (if applicable) CC: Angela Craig NP LIVER Observed: 12/16/2017 Status: F Source: [place] 8:29 AM [facility] REPOSITORY [facility] Imaging Services [address] [place] [address] Liver MR#: [id number] Acct: [id number] Name: YARELIS BURROWS Rep #: [id number] : 1955 F 62 From: Armen Boogie MD PCP: Angela Craig NP Status: REG CLI Study: Liver Date of Exam: 12/16/17 Exam# [id number] Ordering Dr: Angela Craig STUDY: ABDOMINAL ULTRASOUND - RIGHT UPPER QUADRANT REASON FOR VISIT: Female, 62 years old. Elevated liver enzymes. TECHNIQUE: Ultrasound evaluation of the right upper quadrant was performed with real-time and static miner-scale imaging. TECHNICAL QUALITY: Adequate. COMPARISON: None. FINDINGS: Liver: The liver measures 14.5 cm. There is normal echogenicity of the liver. The bile ducts are within normal limits. There is hepatic color flow. The direction of portal flow is hepatopetal. There is no demonstrated mass lesion. Gallbladder: Normal distended gallbladder. The gallbladder wall is slightly thickened and measures 3.3 mm. There is a negative sonographic Rowland's sign. There is no pericholecystic fluid. There are multiple echogenic structures within the gallbladder, consistent with multiple gallstones. Common Bile Duct (C.B.D.): The common bile [...] is no right hydronephrosis. US/Liver IMPRESSION: Multiple gallstones. Slightly thickened gallbladder wall. Electronically Signed: Armen Boogie MD at 14:34 EST Tel [phone], Service support , CC: Angela Craig NP Staff Therapist: Signed OT GENERAL EVALUATION Observed: 12/09/2017 Status: F Source: [place] 12:05 PM [facility] REPOSITORY [facility] [address] [place] [address]. [address] [place], [place] [address] Fax REHABILITATION SERVICES INITIAL EVALUATION MR#: [id number] Acct: [id number] Name: YARELIS BURROWS Rep #: [id number] : 1955 62 From: Marlene Sexton Referring Dr.: Chayo Ku DO Status: REG RCR Insurance: [facility] Date: SELF PAY INSURANCE Patient's Visit Information YARELIS BURROWS is a 62 year old F, referred to Occupational Therapy by Chayo Ku DO,, with a diagnosis of R MR release. Date of Evaluation: 12/08/17 Occupational Therapist: Marlene Sexton - Subjective Subjective: Pt., delfino Santoyo and noted trigger finger release 2 months. She notes trigger finger has been issue about year and half [...] to L MF. As well as increased stiffness and decreased ROM and strength at this time. - ROM MP: MF R -14-67, L 0-77 PIP: MF R 0-98, L 7-98 DIP: MF 0-68, L 0-61 - Strength Geodetic Computator: R 39, L 52 Lateral Pinch: R 7, L 11 Tripod Pinch: R 6, L 8 Tip-to-Tip Pinch: R 6, L 4 - Edema Proximal Phalanx: MF R 7.5 cm, L 6.8 cm - Sensation Sensation Comments: WFL; deneis numbness and tingling. 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 - Rehabilitation General Assessment: Yarelis delfino for evaluation on this date. She has R MF trigger finger release about 2 months ago and has still had some symptoms over the past two months. SHe is unhappy with progress and notes continued edema in R MF as well as locking on occassion. She is to complete OT to promote increasing ROM, strength, and general ability to return to all ADL/IADL sincluding leisure interests at PLOF. Rehabilitation Potential: Good - Anticipated Interventions Anticipated Interventions: A/AAROM/PROM, Strengthening, Edema Control, Scar Care, Massage, Modalities, Joint Protection/Energy Conservation, Dynamic Sitting Balance, Fine Motor Coord/Miguel A, ADL Training, [...] to be FAXED BACK to us at [phone] for Medicare purposes. Please let me know if there are questions or concerns regarding this plan of care. Physician Signature: Date: <Electronically signed by Marlene Sexton > 12/09/17 1206 CC: Angela Craig NP; Chayo Ku DO KMB Signed For Medicare only, by signing this I certify the plan of care. Physicians Signature Date ORTHOPEDIC VISIT Observed: 12/02/2017 Status: F Source: [place] REPORT 9:50 AM [facility] [address] [place] [address] OFFICE VISIT Date of Service: 12/02/17 MR#: [id number] Acct: [id number] Name: YARELIS BURROWS Rep #: [id number] : 1955 Provider: Chayo Ku DO Age/Sex: 62/F Location: [facility] Status: Signed Intake Intake Visit Reasons: Right hand Is patient in pain?: Yes Pain scale (1-10): 3 Allergies No Known Allergies Allergy (Verified 12/02/17 08:00) Medications atorvastatin 20 mg tablet 20 mg PO QDAY 10/15/17 [History Confirmed 12/02/17] cholecalciferol (vitamin D3) 2,000 unit capsule 2,000 unit PO ONCE 10/15/17 [History Confirmed 12/02/17] coenzyme Q10 200 mg capsule 200 mg PO ONCE 10/15/17 [History Confirmed 12/02/17] PFSH Medical History Hyperlipidemia (Chronic) Surgical History Trigger finger, right middle finger (Resolved) History of hysterectomy (Inactive) History of tonsillectomy (Inactive) S/P appendectomy (Inactive) Trigger finger (Inactive) Family History Father CVA (cerebral vascular accident) Hypertension Heart disease Mother Hypertension Brother Heart disease Social History Smoking Status: Never smoker HPI Right hand: Details: YARELIS BURROWS is a 62 year old F here today s/p right middle finger A1 release DOS 10/20/17. She complains of intermittent pain of the middle finger. Denies radiation of pain. No tingling/numbness. She does feel at times the finger feels swollen. She does try to do HEP but feels maybe [...] A1 joleen trigger: No Right Wrist: Yes ROM-Extension 0-60, ROM-Flexion 0-80, ROM- Pronation 0-80 and ROM-Supination 0-90 Motor: EPL: 5, FDP-2: 5, 1st Dorsal Interosseous: 5, APB: 5 Sensation: Radial: I, Ulnar: I, Median: I Assessment AND Plan 1. Trigger middle finger of right hand M65.331 Plan Explained that the joint stiffness and swelling is normal, OA is expected, but we will give OT script today [...] Trigger middle finger of right hand M65.331 Laterality: right Trigger finger location: middle finger Stiffness in joint M25.60 S/P orthopedic surgery, follow-up exam Z09 12/02/17 0950 <Electronically signed by Chayo Ku DO> Date Chayo Quinn Signature: Date (if applicable) CC: ORTHOPEDIC VISIT Observed: 11/16/2017 Status: F Source: [place] REPORT 9:18 AM [facility] REPOSITORY [facility] Orthopaedics AND Sports Medicine [address] [place] [address] OFFICE VISIT Date of Service: 11/11/17 MR#: [id number] Acct: [id number] Name: YARELIS BURROWS Rep #: [id number] : 1955 Provider: Chayo Ku DO Age/Sex: 62/F Location: [facility] [place] Status: Signed Intake Intake Visit Reasons: Trigger finger Is patient in pain?: Yes Pain scale (1-10): 2 Allergies No Known Allergies Allergy (Verified 11/11/17 08:02) Medications atorvastatin 20 mg tablet 20 mg PO QDAY 10/15/17 [History Confirmed 10/19/17] cholecalciferol (vitamin D3) 2,000 unit capsule 2,000 unit PO ONCE 10/15/17 [History Confirmed 10/19/17] coenzyme Q10 200 mg capsule 200 mg PO ONCE 10/15/17 [History Confirmed 10/19/17] PFSH Medical History Hyperlipidemia (Chronic) Surgical History Trigger finger, right [...] from right middle finger A1 release 10/20/17. She removed her own sutures and complains of [...] Yes suture/shila removed Right Ankle Skin/Wound: Yes suture/shila removed Assessment AND Plan 1. Trigger middle finger of right hand M65.331 Plan Explained that she was likely lacking full extension from the pattern fitter triggering, that now she will need to work on the extension or we can give [...] Trigger middle finger of right hand M65.331 Laterality: right Trigger finger location: middle finger 11/16/1718 <Electronically signed by Chayo Ku DO> Date Chayo Newmanignani Signature: Date (if applicable) CC: OPERATIVE REPORT Observed: 10/28/2017 Status: F Source: [place] 12:19 PM [facility] REPOSITORY [facility] Medical Records Department [address] [place] [address] Operative Report 10/20/17 0844 MR#: [id number] Acct: [id number] Name: YARELIS BURROWS Rep #: [id number] : 1955 62 From: Chayo Ku DO PCP: Angela Craig NP Status: ANA PAULA [facility] [place] Y Location: [facility] [place] [facility] Report of Operation Date of Procedure: 10/20/17 Pre-Operative Diagnosis: right middle finger trigger finger Post-Operative Diagnosis: same [...] limited to blood loss, blood clot, infection, neurovascular injury, failure procedure, loss of life and loss of limb. Patient is aware like to proceed with right middle finger A1 joleen release. Next operative note Patient seen and examined preoperative holding area. Right middle finger was marked. Patient is brought to the operating room placed supine on the operating table. Signing, anesthesia and antibiotics were administered. All history and physical and consent reviewed. All bony possible padded and SCDs placed on her bilateral lower extremity. Srinivas block was initiated and the right arm was prepped and draped in usual sterile fashion. We marked out our incision for our A1 joleen release. Timeout was performed. We then used forceps to ensure that the Srinivas block was working which it was. We then used a 15 blade to cut through the skin dissected down to the A1 joleen with tenotomies. We then released the tenotomy with a combination of a new fresh 15 blade and tenotomies and then were able to flex and extend the middle finger and brought the tendons out of the incision and then flexed and extended the finger to ensure that we had released all the A1 joleen which we did. We then irrigated the incision with copious amounts of sterile saline. Incision was closed with interrupted 4-0 nylon stitches. Sterile dressings were applied tourniquet was deflated for total working time of 8 minutes. Patient tolerated the procedure well there are no complications. Postoperative note Hospital has pain pills prescription Use hand as tolerated next Keep incision clean and dry Call with concerns This note was generated with [employer] dictation software. It may contain incorrect words, spelling, and punctuation that were not noted in checking the note before signing. 10/28/17 1219 <Electronically signed by Chayo Ku DO> Date Chayo Ku DO CC: Angela Craig LOCAL FLATBED DRIVER; Chayo Ku DO Signed DEXA BONE DENSITY Observed: 10/21/2017 Status: F Source: [place] STUDY () 11:02 AM [facility] REPOSITORY [facility] Imaging Services [address] [place] [address] Dexa Bone Density Study () MR#: [id number] Acct: [id number] Name: YARELIS BURROWS Rep #: [id number] : 1955 F 62 From: Armen Boogie MD PCP: Angela Craig NP Status: REG CLI Study: Dexa Bone Density Study () Date of Exam: 10/21/17 Exam# [id number] Ordering Dr: Angela Craig STUDY: DUAL ENERGY X-RAY ABSORPTIOMETRY / DXA REASON FOR EXAM: Female, 62 years old. The patient is postmenopausal. No loss of height. TECHNIQUE: Bone Mineral Density (BMD) measurements of lumbar spine and bilateral hips were obtained. COMPARISON: Comparison is made with prior study dated October 15, 2015. FINDINGS: Lumbar Spine (L1-L4): g/cm2 (0.844) / T-score (-2.8) / Z-score (-1.4) Findings are suggestive of osteoporosis with a high fracture risk. Left Femur Total: g/cm2 (0.919) / T-score (-0.7) / Z- score (0.4) Left Femoral Neck: g/cm2 (0.860) / T-score (-1.3) / Z- score (0.1) Right Femur Total: g/cm2 (0.906) / T-score (-0.8) / Z- score (0.3) Right Femoral Neck: g/cm2 (0.856) / T-score (-1.3) / Z-score (0.1) The T-Scores on the most recent prior examination were: Lumbar Spine (L1-L4): There has been worsening of bone density since the previous examination. Left Femur Total: which represents an improvement of 1.5%. . Right Femur Total: which represents an improvement of 1.8%. HPBD/Dexa Bone Density Study (HP) IMPRESSION: The [...] clinical guideline, osteopenia may be graded as follows: Mild -1 through -1.5 Moderate -1.6 through -2.0 Severe -2.1 through -2.4 The Z-score is the number of standard deviations above or below age-matched controls. A Z-score of less than -1.5 would be considered abnormal. References: 1. NIH Osteoporosis and Related Bone Diseases http://www.osteo.org 2. International Society for Clinical Densitometry http://www.iscd.org 3. National Osteoporosis Foundation http://www.nof.org Electronically Signed: Armen Boogie MD at 12:13 EST Tel [phone], Service support , CC: Angela Craig NP Staff Therapist: Signed DISCHARGE INSTRUCTION Observed: 10/20/2017 Status: F Source: [place] 8:44 AM [facility] REPOSITORY [facility] Medical Records Department [address] [place] [address] Instructions for Home/Discharge Instructions 10/20/17 0843 MR#: [id number] Acct: [id number] Name: YARELIS BURROWS Rep #: [id number] : 1955 62 From: Chayo Ku DO PCP: Angela Craig NP Status: REG [facility] [place] Discharge Diet: No Restrictions - keep dressing clean, dry and intact; will remove stitches at 2 week postop visit, use hand as tolerated, if incision gets wet remove and apply new clean dressing Discharge Activity: May Not Drive May shower in (days): 1 Ice area for (Minutes): 20 - Every hour while awake. Weight Bearing Status: Weight bearing as tolerated Keep extremity elevated above heart level: Operative Extremity Call your doctor if your incision/area has: Continuous Slow Oozing, Sudden Increased Bleeding, Increased Pain/ Swelling, Increased Redness, Foul Smelling Discharge Call your doctor if you observe: Fever of 101 or Higher, Coldness, Increased Pain, Numbness or Tingling, Change in Color, Calf discomfort Allergies/Adverse Reactions: Allergies No Known Allergies Allergy (Verified 10/20/17 08:18) Medications to take at Discharge atorvastatin 20 mg tablet 20 mg PO QDAY 10/15/17 cholecalciferol (vitamin [...] tablet PRN Reason: Pain Primary Care Physician: Angela Craig [Primary Care Provider] - Please Follow Up With: Chayo Ku DO - [phone] 10/20/17 0844 <Electronically signed by Chayo Ku DO> Date Chayo Ku DO CC: Angela Craig LOCAL FLATBED DRIVER ORTHOPEDIC VISIT Observed: 10/19/2017 Status: F Source: [place] REPORT 9:52 AM [facility] REPOSITORY [facility] Orthopaedics AND Sports Medicine [address] [place] [address] [place] [address] OFFICE VISIT Date of Service: 10/15/17 MR#: [id number] Acct: [id number] Name: YARELIS BURROWS Rep #: [id number] : 1955 Provider: Chayo Ku DO Age/Sex: 62/F Location: [facility] [place] Status: Signed Intake Vital Signs10/15/17 Height 5 ft 4 in 10/15/17 Weight: 165 lb 10/15/17 Body Mass Index (BMI) 28.3 [...] (Chronic) Hyperlipidemia (Chronic) Surgical History History of hysterectomy (Inactive) History of tonsillectomy (Inactive) S/P appendectomy (Inactive) Trigger finger (Inactive) Family History Father CVA (cerebral vascular accident) Hypertension Heart disease Mother Hypertension Brother Heart disease Social History Smoking Status: Never smoker HPI right middle finger: Details: YARELIS [...] Right Wrist: Yes ROM-Extension 0-60, ROM-Flexion 0-80, ROM- Pronation 0-80 and ROM-Supination 0-90 Motor: EPL: 5, FDP-2: 5, 1st Dorsal Interosseous: 5, APB: 5 Sensation: Radial: I, Ulnar: I, Median: I Assessment AND Plan 1. Trigger finger, right middle finger M65.331 Plan Explained the joleen release to stop the triggering. Reviewed the pre-operative plans with the patient. Risks and benefits of the procedure were fully explained, including [...] DO Cosigner Signature: Date (if applicable) CC: ALLERGIES ALLERGIES DATE TYPE / CODE NAME / CODE REACTION SEVERITY SOURCE 08/06/2018 Drug lidocaine/F00 Itching Unknown Gretchen [facility] Allergy/4160 6009703(RXNOR Hospital 66360(SNOMED M) Repository CT) 12/30/2017 Drug No Known Unknown Gretchen [facility] Allergy/4160 Allergies/F00 Hospital 25905(SNOMED 9459267(RXNOR Repository CT) M) ENCOUNTERS ENCOUNTERS ADMIT/DISCHARGE ACCOUNT ADMITTING ENCOUNTER LOCATION SOURCE NUMBER CLASS 09/07/2018 [id number] Ambulatory Building:[facility] [place] Practices Repository 09/07/2018 [id number] Ambulatory BMSBuilding:W [place] 5 [facility] Repository 09/07/2018 [id number] Ambulatory Gretchen G[facility] 1 [facility] Hospital ing:[facility] Repository 08/08/2018 [id number] Ambulatory BMSBuilding:W [place] 6 [facility] Repository 08/06/2018/ [id number] Pamela Grimes Ambulatory Gretchen Gret[place] 8 9 [facility] ing:PCURoom: Repository [id number]: 1 08/06/2018 [id number] Pamela Grimes Ambulatory BMSBuilding:B [place] 2 [place] [facility] Repository 08/06/2018 [id number] Pamela Grimes Ambulatory BMSBuilding:B [place] 2 [place] [facility] Repository 08/06/2018 [id number] Pamela Grimes Ambulatory BMSBuilding:B [place] 7 [place] [facility] Repository 08/06/2018 [id number] Ambulatory BMSBuilding:W [place] 1 [facility] Repository 08/04/2018 [id number] [place]ulatory [place] 5 [facility] Hospital ing:HPRAD Repository 02/01/2018/ [id number] Ambulatory BMSBuilding:B [place] 8 6 MS.Counts include 234 beds at the [facility] Repository 01/25/2018/ [id number] Ambulatory Gretchen [place] 8 9 [facility] Hospital ing:SDC Repository 01/25/2018 [id number] Ambulatory BMSBuilding:B [place] 7 MS.CF.Counts include 234 beds at the [facility] Repository 01/20/2018 [id number] Ambulatory BMSBuilding:W [place] 8 [facility] Repository 12/31/2017 [id number] Ambulatory Gretchen Gret[place] 9 [facility] ing:BI Repository 12/31/2017/ [id number] Ambulatory [place] 8 1 [facility] ing:OT Repository 12/30/2017/ [id number] Ambulatory BMSBuilding:B [place] 8 7 MS.WSA [facility] Repository 12/16/2017 [id number] Ambulatory [place] Gretchen 7 [facility] ing:USHP Repository 12/02/2017/ [id number] Ambulatory BMSBuilding:B [place] 8 1 [facility] Repository 11/11/2017/ [id number] Ambulatory BMSBuilding:B [place] 8 4 [facility] Repository 10/21/2017 [id number] Ambulatory [place] Gretchen 3 [facility] ing:BD Repository 10/20/2017/ [id number] Ambulatory [place] 8 3 [facility] ing:SDCRoom: Repository AC05 10/15/2017/ [id number] Ambulatory BMSBuilding:B [place] 8 0 [facility] Repository FUNCTIONAL STATUS FUNCTIONAL STATUS No Functional Status Records FoundEQUIPMENT EQUIPMENT No Equipment Records FoundPAYERS PAYERS ENCOUNTER GUARANTOR PAYER SUBSCRIBER SOURCE 09/07/2018 Yarelis Muñoz Primary Insurance:[facility] Al Bella KauffmanDOB: [facility] KauffmanDOB: Repository [id number] [facility] [id number] [facility] Number: 7 [place], [place] [id number], [place] [address]Vdd: (147) Date:3639-85-34Dkmh 63833Zmu: Name:[facility] [phone] () (HP)Tel: [phone] CLAIMS [phone] (WP) DEPTMT. GILDA CHANCE [id number]: 09/07/2018 AL Smith Primary AL [id number] Insurance:CORESOURCEPo KAUFFMANDOB: Community SCHELLIN licy Number: [id number], [place] [id number] Repository 317[address]Rrb: (330) Date:7028-92-98SY [phone] (HP) 23[address]MT. GILDA CHANCE 578[address]NE: 09/07/2018 Secondary NOT GIVENUNK [place] Insurance:SELF PAY [facility] Number: Effective Repository Date:2018-09-07 09/07/2018 AL D Primary AL D [place] [id number] Insurance:CORESOURCEPo KAUFFMANDOB: Community SCHELLIN licy Number: [id number], [place] [id number] Repository [address]Qgb: (330) Date:8538-07-15QA [phone] (HP) 2310MT. GILDA CHANCE 38437FA: 09/07/2018 Secondary NOT GIVENUNK [place] Insurance:SELF PAY [facility] Number: Effective Repository Date:2018-08-25 08/08/2018 AL D Primary AL D [place] [id number] Insurance:CORESOURCEPo KAUFFMANDOB: Community SCHELLIN licy Number: [id number], [place] [id number] Repository 16[address]Vsb: (330) Date:0171-53-64XT [phone] (HP) 2310MT. GILDA CHANCE [id number]: 08/08/2018 Secondary NOT GIVENUNK [place] Insurance:SELF PAY [facility] Number: Effective Repository Date:2018-08-08 08/06/2018 AL D Primary AL D [place] [id number] Insurance:CORESOURCEPo KAUFFMANDOB: Community SCHELLIN licy Number: [id number], [place] [id number] Repository 18482Cml: (330) Date:3252-37-42OH [phone] (HP) 2310MT. GILDA CHANCE 804[address]KY: 08/06/2018 Secondary NOT GIVENUNK [place] Insurance:SELF PAY [facility] Number: Effective Repository Date:2018-08-06 08/06/2018 AL Smith Primary AL Godinez [id number] Insurance:CORESOURCEPo KAUFFMANDOB: Community SCHELLIN licy Number: [id number], [place] [id number] Repository 09721Qlb: (330) Date:7911-06-34AK [phone] (HP) 231MT. GILDA CHANCE 14986JS: 08/06/2018 Secondary NOT GIVENUNK G[place] Insurance:SELF PAY [facility] Number: Effective Repository Date:2018-08-06 08/06/2018 AL Luis Primary AL Godinez [id number] Insurance:CORESOURCEPo KAUFFMANDOB: Community SCHELLIN licy Number: [id number], [place] [id number] Repository 877[address]Wcu: (330) Date:9680-58-44VU [phone] () 2319MT. GILDA CHANCE 15914IJ: 08/06/2018 Secondary NOT GIVENUNK [place] Insurance:SELF PAY [facility] Number: Effective Repository Date:2018-08-06 08/06/2018 AL Luis Primary AL Godinez [id number] Insurance:CORESOURCEPo KAUFFMANDOB: Community SCHELLIN licy Number: [id number], [place] [id number] Repository 71802Zoq: (330) Date:5532-67-58YV [phone] (HP) 2315MT. GILDA CHANCE 17[address]AJ: 08/06/2018 Secondary NOT GIVENUNK [place] Insurance:SELF PAY [facility] Number: Effective Repository Date:2018-08-06 08/06/2018 AL Smith Primary AL Godinez [id number] Insurance:CORESOURCEPo KAUFFMANDOB: Community SCHELLIN licy Number: [id number], [place] [id number] Repository 89173Klb: (330) Date:3262-48-06BU [phone] (HP) 2310MT. GILDA CHANCE 95224OB: 08/06/2018 Secondary NOT GIVENUNK [place] Insurance:SELF PAY [facility] Number: Effective Repository Date:2018-08-06 08/04/2018 AL D Primary AL D [place] [id number] Insurance:CORESOURCEPo KAUFFMANDOB: Community SCHELLIN licy Number: [id number], [place] [id number] Repository 60323Bxu: (330) Date:5079-80-46NN [phone] (HP) 2310MT. GILDA CHANCE 82157TJ: 08/04/2018 Secondary NOT GIVENUNK [place] Insurance:SELF PAY [facility] Number: Effective Repository Date:2018-08-04 02/01/2018 AL D Primary AL D [place] [id number] Insurance:CORESOURCEPo KAUFFMANDOB: Community SCHELLIN licy Number: [id number], [place] [id number] Repository 64[address]Fqk: Date:1021-73-55GX [phone]~33 2310MT. GILDA CHANCE 0-3 (HP) [id number]: 02/01/2018 Secondary NOT GIVENUNK [place] Insurance:SELF PAY Community [facility] Number: Effective Repository Date:2018-02-01 01/25/2018 AL D Primary AL D [place] [id number] Insurance:CORESOURCEPo KAUFFMANDOB: Community SCHELLIN licy Number: [id number], [place] [id number] Repository 197[address]Bec: Date:0639-18-04XH [phone]~33 2310MT. GILDA CHANCE 0-3 (HP) 00321TA: 01/25/2018 Secondary NOT GIVENUNK [place] Insurance:SELF PAY Community [facility] Number: Effective Repository Date:2018-01-03 01/25/2018 AL Smith Primary AL Godinez [id number] Insurance:CORESOURCEPo KAUFFMANDOB: Community SCHELLIN licy Number: [id number], [place] [id number] Repository 947[address]Jun: Date:2230-52-08UN [phone]~33 2310MT. [place] 0-3 (HP) [id number]: 01/25/2018 Secondary NOT GIVENUNK [place] Insurance:SELF PAY [facility] Number: Effective Repository Date:2018-01-25 01/20/2018 AL Smith Primary AL Godinez [id number] Insurance:CORESOURCEPo KAUFFMANDOB: Community SCHELLIN licy Number: [id number], [place] [id number] Repository [address]22[address]Vss: Date:6099-28-26TW [phone]~33 2310MT. GILDA CHANCE 0-3 (HP) 96724DV: 01/20/2018 Secondary NOT GIVENUNK [place] Insurance:SELF PAY [facility] Number: Effective Repository Date:2018-01-20 12/31/2017 Al Smith Primary Al Smith Gretchen [id number] Insurance:CORESOURCEPo KauffmanDOB: Community Schellin licy Number: [id number] City, [place] [id number] Repository [address]Aig: Date:4220-60-14IL [phone]~33 2310MT. GILDA CHANCE 0-3 (HP) 664[address]PL: 12/31/2017 Secondary NOT GIVENUNK [place] Insurance:SELF PAY [facility] Number: Effective Repository Date:2017-12-14 12/31/2017 Al Smith Primary Al Godinez [id number] Insurance:CORESOURCEPo KauffmanDOB: Community Schellin licy Number: [id number] City, [place] [id number] Repository 493[address]Gmo: Date:0496-11-22RC [phone]~33 2310MT. GILDA CH[place] 0-3 (HP) 43029XN: 12/31/2017 Secondary NOT GIVENUNK [place] Insurance:SELF PAY Community [facility] Number: Effective Repository Date:2017-12-02 12/30/2017 Al D Primary Al Godinez [id number] Insurance:CORESOURCEPo KauffmanDOB: Community Schellin licy Number: [id number] City, [place] [id number] Repository 410[address]Vyj: Date:8634-62-21KR [phone]~33 2310MT. GILDA CH[place] 0-3 (HP) 75571UM: 12/30/2017 Secondary NOT GIVENUNK [place] Insurance:SELF PAY [facility] Number: Effective Repository Date:2017-12-30 12/16/2017 Al D Primary Al Luis Godinez [id number] Insurance:CORESOURCEPo KauffmanDOB: Community Schellin licy Number: [id number] City, [place] [id number] Repository 68[address]Zmi: Date:1819-76-56XF [phone]~33 2310MT. GILDA CH[place] 0-3 (HP) 569[address]QD: 12/16/2017 Secondary NOT GIVENUNK G[place] Insurance:SELF PAY [facility] Number: Effective Repository Date:2017-12-14 12/02/2017 Al D Primary Al Luis Godinez [id number] Insurance:CORESOURCEPo KauffmanDOB: Community Schellin licy Number: [id number] [place], [place] [id number] Repository 81387Ivf: Date:8209-29-01DY [phone]~33 2310MT. GILDA CH[place] 0-3 (HP) 48[address]KE: 12/02/2017 Secondary NOT GIVENUNK [place] Insurance:SELF PAY Community [facility] Number: Effective Repository Date:2017-11-11 11/11/2017 Al Smith Primary Al Godinez [id number] Insurance:CORESOURCEPo KauffmanDOB: Community Schellin licy Number: [id number] City, [place] [id number] Repository 876[address]Eim: Date:7356-35-99RU [phone]~33 2310MT. [place] 0-3 (HP) [address]HZ: 11/11/2017 Secondary NOT GIVENUNK [place] Insurance:SELF PAY [facility] Number: Effective Repository Date:2017-10-19 10/21/2017 Al Smith Primary Al Godinez [id number] Insurance:CORESOURCEPo KauffmanDOB: Community Schellin licy Number: [id number] City, [place] [id number] Repository 08[address]Uhl: Date:1173-86-37FJ [phone]~33 2310MT. GILDA CH[place] 0-3 (HP) 48[address]UH: 10/21/2017 Secondary NOT GIVENUNK [place] Insurance:SELF PAY [facility] Number: Effective Repository Date:2017-09-03 10/20/2017 Al Smith Primary Al Smith Gretchen [id number] Insurance:CORESOURCEPo KauffmanDOB: Community Schellin licy Number: [id number] City, [place] [id number] Repository 60[address]Qxh: Date:3022-88-93IV [phone]~33 2310MT. [place] 0-3 (HP) [id number]: 10/20/2017 Secondary NOT GIVENUNK [place] Insurance:SELF PAY [facility] Number: Effective Repository Date:2017-10-18 10/15/2017 Al Smith Primary Al Godinez [id number] Insurance:CORESOURCEPo KauffmanDOB: Community Schellin licy Number: [id number] City, [place] [id number] Repository 511[address]Izl: Date:3731-86-34RG [phone]~33 2310MT. GILDA CH[place] 0-3 () [id number]: 10/15/2017 Secondary NOT GIVENUNK [place] Insurance:SELF PAY [facility] Number: Effective Repository Date:2017-10-06 SOCIAL HISTORY SOCIAL HISTORY No Social History Records FoundFAMILY HISTORY FAMILY HISTORY No Family History Records FoundADVANCE DIRECTIVES ADVANCE DIRECTIVES No Advanced Directives Records FoundINFORMATION SOURCE INFORMATION SOURCE DATE CREATED AUTHOR AUTHOR'S ORGANIZATION 09/28/2018 [facility]
== END ==
PROVIDERS: Family Provider Nurse Practitioner; PCP Nurse Practitioner; Referring Provider Nurse Practitioner; Visit Provider Nurse Practitioner
DX: R07.9 Chest pain, unspecified (principal)
CPT/HCPCS: 93306

== ENCOUNTER → 2018-09-28 07:01 | Outpatient (CLI) | payer OTHER, SELFPAY ==
[2018-09-28 10:36] LABS: ALB/GLOB Ratio 1.2 RATIO (0.9-2.4); AST(SGOT) 16 U/L (15-37); Alanine Aminotransfer ALT/SGPT 30 U/L (13-56); Albumin, Serum 3.9 g/dL (3.2-5.0); Alkaline Phosphatase 74 U/L (45-117); Anion Gap 8 (5-15); BUN 20 mg/dL (7-18); BUN/Creat Ratio 22.5 RATIO (10-20); Calcium,Total 8.3 mg/dL (8.5-10.1); Chloride 104 mmol/L (98-107); Cholesterol 159 mg/dL (200); Creatinine, Serum 0.89 mg/dL (0.55-1.02); EST Glomerular Filtration Rate 68 mL/min (>60); Est Glom Filt Rate - Afr Amer 82 mL/min (>60); Globulin 3.3 g/dL (2.2-4.2); Glucose 83 mg/dL (74-106); High Density Lipoprotein 53 mg/dL; Potassium 3.2 mmol/L (3.5-5.1); Protein, Total 7.2 g/dL (6.4-8.2); Sodium Level 144 mmol/L (136-145); Triglycerides 94 mg/dL; Very Low Density Lipoprotein 19 mg/dL (5-40)
--- OUTSIDE RECORDS SUMMARY | 2018-12-30 07:55 | XMS RPT_ITS ---
:1955 Author Organization [place] Support Name Relationship Address Phone AL BURROWS Unavailable [address] + [place] [address] SEACO Unavailable [address] + [place] [address] AL BURROWS Unavailable [address] + [place] [address] SEACO Unavailable [address] + [place] [address] AL BURROWS Unavailable [address] + [place] [address] SEACO Unavailable [address] + [place] [address] AL BURROWS Unavailable [address] + [place] [address] SEACO Unavailable [address] + [place] [address] AL BURROWS Unavailable [address] + [place] [address] SEACO Unavailable [address] + [place] [address] AL BURROWS Unavailable [address] + [place] [address] SEACO Unavailable [address] + [place] [address] AL BURROWS Unavailable [address] + [place] [address] SEACO Unavailable [address] + [place] [address] AL BURROWS Unavailable [address] + [place] [address] SEACO Unavailable [address] + [place] [address] AL BURROWS Unavailable [address] + [place] [address] SEACO Unavailable [address] + [place] [address] AL BURROWS Unavailable [address] + [place] [address] SEACO Unavailable [address] + [place] [address] AL BURROWS Unavailable [address] + [place] [address] SEACO Unavailable [address] + [place] [address] AL BURROWS Unavailable [address] + [place] [address] [facility] Unavailable [address] + [place] [address] AL BURROWS Unavailable [address] + [place] [address] [facility] Unavailable [address] + [place] [address] AL BURROWS Unavailable [address] + [place] [address] [facility] Unavailable [address] + [place] [address] AL BURROWS Unavailable [address] + [place] [address] [facility] Unavailable [address] + [place] [address] AL BURROWS Unavailable [address] + [place] [address] [facility] Unavailable [address] + [place] [address] AL BURROWS Unavailable [address] + [place] [address] [facility] Unavailable [address] + [place] [address] AL BURROWS Unavailable [address] + [place] [address] [facility] Unavailable [address] + [place] [address] AL BURROWS Unavailable [address] + [place] [address] [facility] Unavailable [address] + [place] [address] AL BURROWS Unavailable [address] + [place] [address] [facility] Unavailable [address] + [place] [address] AL BURROWS Unavailable [address] + [place] [address] [facility] Unavailable [address] + [place] [address] AL BURROWS Unavailable [address] + [place] [address] [facility] Unavailable [address] + [place] [address] Care Team Providers Name Role Phone Angela Craig Attending Unavailable Corine Rice DO Referring Unavailable EleaAngela Consulting Unavailable Chidi Pagan Attending Unavailable Angela Craig Referring Unavailable Angela Craig Attending Unavailable Angela Craig Referring [facility] Unavailable Chayo Ku Attending Unavailable Angela Craig Referring Unavailable Elea Angela Primary Care Unavailable Chayo Ku Attending Unavailable Angela Craig Referring Unavailable Elea Angela Primary Care Unavailable Anisha Mancera Attending Unavailable Sammy Uriostegui Attending Unavailable Angela Craig Referring Unavailable Chayo Ku Attending Unavailable Chayo Ku Referring Unavailable Kiara Angela Primary Care Unavailable Angela Craig Attending Unavailable EleaAngela Referring Unavailable Ciesa, Angela Primary Care Unavailable Angela Craig Attending Unavailable Kiara Angela Primary Care Unavailable Angela Craig Referring Unavailable Chidi Mo Attending Unavailable Angela Craig Referring Unavailable Ciesa, [facility] Primary Care Unavailable Chidi Mo Attending Unavailable Chepe, Chidi Referring Unavailable Ciesa, Angela Primary Care Unavailable Lebec, Chidi Attending Unavailable Chepe, Chidi Referring Unavailable Ciesa, Angela Primary Care Unavailable Chepe, Chidi Consulting Unavailable Jenise Julian PA-C Attending Unavailable EleaAngela Referring Unavailable CiesaAngela Primary Care Unavailable Anthony Ojeda Attending Unavailable Chepe, Chidi Referring Unavailable Katarina Bourgeois ENGINEER SPECIALIST-C Attending Unavailable Katarina Bourgeois ENGINEER SPECIALIST-C Referring Unavailable Ciesa, Angela Primary Care Unavailable Ciesa, Angela Primary Care Unavailable Koram, Pamela Ani Admitting Unavailable Koram, Pamela Nai Referring Unavailable Ashelfah, Ghasem Attending Unavailable Koram, Pamela Nai Admitting Unavailable Koram, Pamela Nai Attending Unavailable Koram, Pamela Nai Referring Un[facility] Unavailable Koram, Pamela Nai Consulting Unavailable Koram, Pamela Nai Admitting Unavailable Koram, Pamela Nai Referring Unavailable Ana Lauraesa, Angela Primary Care Unavailable Josh Chawla Consulting Unavailable Josh Chawla Attending Unavailable Koram, Pamela Nai Admitting Unavailable Koram, Pamela Nai Referring Unavailable Ciesa Angela Primary Care Unavailable Ashelfah, Ghasem Consulting Unavailable Ashelfah, Ghasem Attending Unavailable Marcelo Sammy Attending Unavailable Ashelfah, Ghasem Referring Unavailable Marcelo Sammy Attending Unavailable Marcelo Sammy Referring Unavailable Ciesa Angela Attending Unavailable Ciesa, Angela Referring Unavailable [facility] Unavailable PROBLEMS PROBLEMS DATE TYPE CONDITION / CODE ATTENDING STATUS SOURCE 10/20/2018 Unknown I10 - Essential Mood[place], Active [place] (primary) hypertension [facility] / I10(ICD-10) Hospital Repository 10/20/2018 Unknown R94.31 - Abnormal [place], Active [place] electrocardiogram [facility] [ECG] [EKG] / Hospital R94.31(ICD-10) Repository 10/20/2018 Unknown R00.2 - Palpitations / [place], Active [place] R00.2(ICD-10) [facility] Repository 09/28/2018 Unknown E78.00 - Pure Ciesa, Angela Active [place] hypercholesterolemia, [facility] unspecified / Hospital E78.00(ICD-10) Repository 09/27/2018 Unknown R07.9 - Chest pain, Chidi Pagan Active [place] unspecified / Community R07.9(ICD-10) Hospital Repository 08/26/2018 Unknown R07.89 - Other chest Moodispaw, Active [place] pain / R07.89(ICD-10) [facility] Hospital Repository 08/26/2018 Unknown R06.02 - Shortness of [place], Active [place] breath / [facility] R06.02(ICD-10) Hospital Repository 08/04/2018 Unknown R07.1 - Chest pain on Katarina Bourgeois Active [place] breathing / ENGINEER SPECIALIST-C [facility] R07.1(ICD-10) Hospital Repository 01/25/2018 Unknown K80.10 - Calculus of Lebec, Active [place] gallbladder with [facility] chronic cholecystitis Hospital without obstruction / Repository K80.10(ICD-10) 03/08/2018 Unknown Z01.810 - Encounter Lynette, Anthony Active [place] for preprocedural [facility] cardiovascular Hospital examination / Repository Z01.810(ICD-10) 12/31/2017 Unknown Z12.31 - Encounter for Ana LauraAngela duncan Active [place] screening mammogram [facility] for malignant neoplasm Hospital of breast / Repository Z12.31(ICD-10) 03/11/2018 Unknown M25.641 - Stiffness of Chicorelli, Active [place] right hand, not Chayo Community elsewhere classified / Hospital M25.641(ICD-10) Repository 12/16/2017 Unknown R74.8 - Abnormal Angela Craig Active [place] levels of other serum Community enzymes / Hospital R74.8(ICD-10) Repository PROCEDURES PROCEDURES No Procedure Records FoundRESULTS RESULTS CARDIOLOGY VISIT Observed: 10/20/2018 Status: F Source: [place] REPORT 2:42 PM [facility] H[facility]PITAL REPOSITORY [facility] [address] [place] [address]. [address] [place] [address] OFFICE VISIT Date of Service: 10/20/18 MR#: [id number] Acct: [id number] Name: YARELIS BURROWS Rep #: [id number] : 1955 Provider: Sammy Uriostegui MD Age/Sex: 63/F [place] [facility] [place]: Signed HPI HPI Details: YARELIS BURROWS, is a 63 F who presents to the office today for outpatient cardiovascular consultation for concerns of chest discomfort, palpitations, and hypertension. The patient states that on the phone 2017 she presented with chest discomfort. This was after attending an issue football game and doing other physical exertional activity. She noted anterior chest discomfort. This lingered for quite some period of time. She was evaluated a [facility]. Nguyễn had negative cardiac enzymes. She underwent an exercise tolerance test/stress nuclear imaging study which was considered to be negative. Last she did not undergo further evaluation with diagnostic cardiac catheterization. She was apparently released home on medical management. She has been undergoing evaluation care for hypertension. She has been noted to have hypokalemia. She states her primary care physician is exploring N option such as hyper aldosterone aneurysm. In the interim she has been placed on a potassium supplement. She has also had palpitations. She states these occur at least once a week. She will feel her heart going fast and then stop. She sometimes gets dizzy when this occurs. She has not lost consciousness. She did have a transthoracic echocardiogram performed as well. According to the report her left ventricle was normal with an LVEF of 65%. She had mild MR and mild TR. Her estimated RV systolic pressure was 31 mmHg. She had decreased diastolic compliance. She has had no other cardiovascular studies performed. She denies any ongoing chest discomfort at this time. There has been no obvious episodes of orthopnea PND or peripheral pitting edema. There has been no near syncope or syncope. Intake Vital Signs10/20/18 Height 5 ft 4 in 10/20/18 Weight: 179 lb 10/20/18 Body Mass Index (BMI) 30.7 10/20/18 Blood Pressure 138/78 H Intake Visit Reasons: ABN EKG/ Ref. Ciesa Allergies lidocaine Adverse Reaction (Verified 10/20/18 13:31) Itching Medications atorvastatin 20 mg tablet 10 mg PO QDAY tab 12/30/17 [History Confirmed 10/20/18] Calcium Carbonate [Calcium] 600 mg PO BID 01/19/18 [History Confirmed 10/20/18] Alendronate Sodium [Fosamax] 70 mg PO QWEEK 08/06/18 [History Confirmed 10/20/18] Amlodipine [Norvasc] 2.5 mg PO DAILY 08/06/18 [History Confirmed 10/20/18] cholecalciferol (vitamin D3) 1,000 unit tablet 1,000 unit PO DAILY 10/20/18 [History Confirmed 10/20/18] potassium chloride ER 10 mEq capsule,extended release 10 meq PO DAILY 10/20/18 [History Confirmed 10/20/18] [facility] Medical History Abnormal echocardiogram (Acute) Essential hypertension (Chronic) Hyperlipidemia (Chronic) Esophageal reflux (Chronic) MEENU on CPAP (Chronic) History of hysterectomy (Inactive) Surgical History History of appendectomy (Resolved) History of hysterectomy (Resolved) History of tonsillectomy (Resolved) S/P laparoscopic cholecystectomy (Resolved) Trigger finger, right middle finger (Resolved) History of tonsillectomy (Inactive) S/P appendectomy (Inactive) Trigger finger (Inactive) Family History Father CVA (cerebral vascular accident) Hypertension CAD (coronary artery disease) History of coronary artery bypass surgery Mother Hypertension Breast cancer High cholesterol Brother Heart disease Sister Diabetes Aunt Diabetes Brother Diabetes Social History Smoking Status: Never smoker alcohol intake: current details: occasional substance use type: does not use ROS Const Const: Positive for fatigue (more tired lately); negative for weakness, weight gain, weight loss, frequent falls or excessive sweating Eyes Eyes: Negative for change in vision, blurry vision or transient loss of vision ENT ENT: Negative for dizziness or balance problems Cardio Chest Pain: No Palpitations: Yes (occasional) feels like its: fast Edema: Bilateral (slight) Muscle aches with walking: None Resp Respiratory: Negative for SOB with activity or SOB at rest GI GI: Negative vomiting or vomiting blood/hematemesis : Negative for hematuria Musc Musc: Positive for muscle aches/ myalgia (occasional back pain in middle of back); negative for balance problems, muscle weakness or joint pain Skin Skin: Negative non-healing lesions or rash Neuro Neuro: Positive for lightheadedness (once in a while with a palpitation); negative for weakness, blurry vision, dizziness, frequent falls or orthostatic symptoms Oni Hematologic/Lymphatic: Negative for easy bleeding Endo Endo: Positive for fatigue (more tired lately); negative for excessive sweating Psych Psych: Negative for anxiety or depression Allergy Allergy/Immunology: Negative for hives, Negative for rash Cardiology Exam Const Appearance: cooperative, healthy appearing, comfortable, no acute distress, well developed and well groomed Nutritional Appearance: overweight Orientation: alert, awake and oriented x3 Head Head: normal to inspection Ears: hearing grossly normal bilaterally Nose: external nose normal Face and Sinus: face symmetric Mouth: oral mucosae normal Teeth and gingiva: fair dentition Eyes Eyelids: eyelids normal Conjunctivae: conjunctivae normal Pupils: PERRL EOM: EOM intact bilaterally Neck Neck: normal visual inspection and full ROM Carotids: normal carotid upstroke Chest Chest inspection: normal inspection of the chest, symmetric chest movement and normal respiratory effort Auscultation: Bilateral: Clear to Auscultation Cardio Palpation: normal PMI Rate: regular rate Rhythm: regular rhythm Heart sounds: S1 normal and S2 normal Murmur: Grade 2/6, mid systolic, LLSB and LVOT GI GI: normal to inspection, soft and bowel sounds present Neuro General: alert, awake, oriented x3, gait normal, moves all extremities, no focal sensory deficit and no focal motor deficits Skin Skin: no rashes or lesions noted Extremities Pulses: Normal: Right Radial Pulse, Left Radial Pulse Lower Extremity Edema: None: Bilateral Psych Psychological: normal affect Assessment AND Plan 1. Palpitations R00.2 Plan She does have palpitations. It would be reasonable to further evaluate this. She has episodes approximately one time per week and 24-48 hour Holter monitor may not catch them. This would be reasonable to do a 30 day ambulatory event monitor to capture her episodes and correlated with her underlying cardiac rate and rhythm. Orders Orders: 2. Hyperlipidemia E78.5 Plan She does have a history of hyperlipidemia. She is on medical management for this. 3. Essential hypertension I10 Plan She does have a history of hypertension. She has also been found to have hypokalemia. Unless her hypokalemia is from another etiology there may be a consideration that she has underlying hypertension Boster aneurysm. She states she is being evaluated for this by her primary care physician. She may need additional medical therapy with an aldosterone antagonist such as spironolactone. Orders Orders: 4. Hypokalemia E87.6 Plan Again she was hypokalemic. It appears based on laboratory studies this was her first episode of hypokalemia. As noted above unless there is another explanation for it, in the setting of her hypertension, there maybe consideration for hyperaldosteronism and the need for an aldosterone antagonist. Plan Detail Other Orders Orders: Additional Comments She will be scheduled for future outpatient followup to reassess her status and her cardiac rhythm monitor. Thank you for allowing me to participate in the care of your patient. Please don't hesitate to call if any issues arise. This note was generated using a voice recognition system and there may be incorrect words, spelling or punctuation that were not noted when reviewing the office note prior to saving. Follow Up 2 Months (PFM) Coding Level of Care Code Off vis,new,level 4 Diagnoses Palpitations R00.2 Hyperlipidemia E78.5 Essential hypertension I10 Hypokalemia E87.6 Coding Level of Care Code Off vis,new,level 4 Diagnoses Palpitations R00.2 Hyperlipidemia E78.5 Essential hypertension I10 Hypokalemia E87.6 Supplemental Info Supplemental Information Transthoracic echocardiogram: 09/07/2018 Interpretation Summary The estimated ejection fraction is 65 %. Stage 2 diastolic dysfunction. Mild (1+) mitral valve insufficiency. Mild (1+) tricuspid valve insufficiency. Right ventricular systolic pressure estimated to be 31 mmHg. Trivial aortic valve insufficiency. Compared to echo report dated 04/08/2015, no appreciable changes noted. Labs LDL Cholesterol 87 mg/dL (0-130) 09/28/18 HDL Cholesterol 53 mg/dL (40-) 09/28/18 Triglycerides 94 mg/dL (-199) 09/28/18 VLDL Cholesterol 19 mg/dL (5-40) 09/28/18 Diagnostics Electrocardiogram 10/20/18 Echocardiogram 09/07/18 Stress Test Nuclear Medicine 08/08/18 Stress Test 08/08/18 Chest X-Ray 08/06/18 10/20/18 3992 <Electronically signed by Sammy Uriostegui MD> Date Sammy Uriostegui MD Cosigner Signature: Date (if applicable) CC: Angela Craig NP 12 LEAD EKG PERFORMED Observed: 10/20/2018 Status: F Source: [place] BY BMS 1:27 PM [facility] REPOSITORY [facility] [address] [address] 12 Lead EKG performed by [facility] 10/20/18 1326 MR#: [id number] Acct: [id number] Name: YARELIS BURROWS Rep #: [id number] : 1955 63 From: Sammy Uriostegui MD Attending Dr: Sammy Uriostegui MD Status: DEP AMB Ordering Dr: Sammy Uriostegui MD Date: 10/20/18 [place] [facility] [place]: F C Admitted: BMS/12 Lead EKG performed by [facility] ECG Report Interpretation Sinus Rhythm Electronically signed on 10/20/2018 at 18:10 by Sammy Uriostegui Software Version [id number] 10/20/18 1814 Date Sammy Uriostegui MD CC: Angela Craig NP Date Dictated: 10/20/18 1326 Date Transcribed: 10/20/181325 News Agent: PM Signed COMPREHENSIVE METABOLIC Collected: 09/28/2018 Status: F Source: [place] PROFIL 7:06 AM [facility] REPOSITORY TYPE CODE TESTS RESULT OUT OF RANGE REFERENCE UNITS LAB L501.0100 74-106 mg/dL Normal GLU 83 Result Comment: Please note revised GLUCOSE reference range effective 2017. LAB L501.1000 7-18 mg/dL High BUN 20 LAB L501.1100 0.55-1.02 mg/dL Normal CREAT,SERUM 0.89 Result Comment: The validity of the calculated GFR AND GFRAA in patients over 70 years has not been determined. Clinical correlation is essential. LAB L501.1110 >60 mL/min Normal EST GFR 68 Result Comment: Non- GFR Calc LAB L501.1115 >60 mL/min Normal EST GFR - AA 82 Result Comment: GFR Calc LAB L501.1300 10-20 RATIO High BUN/CRE 22.5 LAB L501.1500 6.4-8.2 g/dL T Normal PROT 7.2 LAB L501.1800 3.2-5.0 g/dL Normal ALB 3.9 LAB L501.1950 2.2-4.2 g/dL Normal GLOB 3.3 LAB L501.2000 0.9-2.4 RATIO Normal A/G 1.2 LAB L501.2200 8.5-10.1 mg/dL Low CA 8.3 LAB L501.4100 15-37 U/L Normal AST 16 LAB L501.4305 45-117 U/L Normal ALK P 74 LAB L501.4405 13-56 U/L Normal ALT 30 LAB L501.4600 0.20-1.00 mg/dL High T BILI 1.10 LAB L501.5300 136-145 mmol/L NA Normal 144 LAB L501.5600 3.5-5.1 mmol/L Low K 3.2 LAB L501.5900 98-107 mmol/L CL Normal 104 LAB L501.6100 21.0-32.0 mmol/L Normal CO2 32.0 LAB L501.6200 5-15 Normal GAP 8 Performed By: #### L500.4050, L500.4100 #### [facility] [address] [place], [address] LIPID PROFILE Collected: 09/28/2018 Status: F Source: [place] 7:06 AM [facility] REPOSITORY TYPE CODE TESTS RESULT OUT OF RANGE REFERENCE UNITS LAB L501.4900 200 mg/dL Normal CHOL 159 Result Comment: <200 mg/dL Desirable 200-240 mg/dL Borderline >240 mg/dL High Risk LAB L501.5000 mg/dL Normal TRIG 94 Result Comment: The drugs N-Acetylcysteine and Metamizole may falsely depress this assay. Serum Triglycerides Reference Interval Normal <150 mg/dL Borderline high 150 - 199 mg/dL High 200 - 499 mg/dL Very High > or = 500 mg/dL LAB L501.6400 mg/dL Normal HDL 53 Result Comment: The drugs N-Acetylcysteine and Metamizole may falsely depress this assay. Reference Range HDL <40 mg/dL Low HDL Cholesterol HDL >or= 60 mg/dL High HDL Cholesterol LAB L501.6500 0-130 mg/dL Normal LDL 87 LAB L501.6600 5-40 mg/dL Normal VLDL 19 Performed By: #### L500.4050, L500.4100 #### [facility] [address] [place], [address] ECHOCARDIOGRAM COMPLETE Observed: 09/07/2018 Status: F Source: [place] 4:20 PM [facility] REPOSITORY [facility] Cardiovascular Services [address] [place] [address] Echo Complete 09/07/18 1511 MR#: [id number] Acct: [id number] Name: YARELIS BURROWS Rep #: [id number] : 1955 63 From: Chidi Pagan MD Attending Dr: nAgela Craig NP Status: REG CLI Ordering Dr: Angela Craig NP-C Date: 09/07/18 Location: [facility] Sex: F C Admitted: Reason For Study: [...] Referring Physician: Angela Craig Performed By: Gissel Coleman RDCS 09/07/18 1620 Date Chidi Pagan MD CC: Angela Craig NP Date Dictated: 09/07/18 151 Date Transcribed: 09/07/181619 News Agent: Signed 12 LEAD ELECTROCARDIOGRAM Observed: 08/11/2018 Status: F Source: [place] 4:08 PM [facility]PITAL REPOSITORY [facility] Cardiovascular Services [address] [place] [address] 12 Lead EKG 08/06/181931 MR#: [id number] Acct: [id number] Name: YARELIS BURROWS Rep #: [id number] : 1955 63 From: Sammy Uriostegui MD Attending Dr: Mark Byers Status: DIS LUIGI Ordering Dr: Pamela Grimes MD Date: 08/06/18 Location: [facility] Sex: F C Admitted: 08/06/18 Test Reason : CP ADMISSION Blood Pressure : / mmHG Vent. Rate : 069 BPM Atrial Rate : 069 BPM P-R Int : 138 ms QRS Dur : 090 ms QT Int : 388 ms P-R-T Axes : 050 035 033 degrees QTc Int : 415 ms Normal sinus rhythm Normal ECG Confirmed by MARCELO PARDO, SAMMY ([id number]), book editor CAITLIN NIELSON ([id number]) on 08/11/2018 4:08:02 PM Referred By: Pamela Grimes Confirmed By:SAMMY URIOSTEGUI MD 08/11/18 1608 Date Sammy Uriostegui MD CC: Angela Craig NP; Mark Byers; Pamela Grimes MD Signed 12 LEAD ELECTROCARDIOGRAM Observed: 08/11/2018 Status: F Source: [place] 3:59 PM [facility]PITAL REPOSITORY [facility] Cardiovascular Services [address] [place] [address] 12 Lead EKG 10/29/18 0514 MR#: [id number] Acct: [id number] Name: YARELIS BURROWS Rep #: [id number] : 1955 63 From: Sammy Uriostegui MD Attending Dr: Mark Byers Status: DIS LUIGI Ordering Dr: Pamela Grimes MD Date: 08/08/18 Location: [facility] Sex: F C Admitted: 08/06/18 Test Reason : AM EKG Blood Pressure : / mmHG Vent. Rate : 065 BPM Atrial Rate : 065 BPM P-R Int : 154 ms QRS Dur : 100 ms QT Int : 400 ms P-R-T Axes : 061 031 033 degrees QTc Int : 416 ms Normal sinus rhythm Normal ECG Confirmed by MARCELO PARDO, SAMMY ([id number]), book editor CAITLIN NIELSON ([id number]) on 08/11/2018 3:59:30 PM Referred By: Pamela Grimes Confirmed By:SAMMY URIOSTEGUI MD 08/11/18 1559 Date Sammy Uriostegui MD CC: Angela Craig NP; Mark Byers; Pamela Grimes MD Signed 12 LEAD ELECTROCARDIOGRAM Observed: 08/09/2018 Status: F Source: [place] 10:09 AM [facility] REPOSITORY [facility] Cardiovascular Services [address] [place] [id number] 12 Lead EKG 08/06/18 1655 MR#: [id number] Acct: [id number] Name: EMERSON BURROWSYulissa Muñoz Rep #: [id number] : 1955 63 From: Sammy Uriostegui MD Attending Dr: Mark Byers Status: DIS LUIGI Ordering Dr: Laurie Garber MD Date: 08/06/18 Location: [facility] Sex: F C Admitted: 08/06/18 Test Reason : CP Blood Pressure : / mmHG Vent. Rate : 078 BPM Atrial Rate : 078 BPM P-R Int : 146 ms QRS Dur : 092 ms QT Int : 378 ms P-R-T Axes : 058 044 047 degrees QTc Int : 430 ms Normal sinus rhythm Normal ECG Confirmed by MARCELO PARDO, SAMMY ([id number]), book editor CAITLIN NIELSON ([id number]) on 08/09/2018 10:09:18 AM Referred By: Pamela Grimes Confirmed By:SAMMY URIOSTEGUI MD 08/09/18 1009 Date Sammy Uriostegui MD CC: Angela Craig NP; Mark Byers; Laurie Garber MD; Pamela Grimes MD Signed DISCHARGE SUMMARY Observed: 08/08/2018 Status: F Source: [place] 11:07 AM [facility] REPOSITORY [facility] Medical Records Department [address] [place] [address] Discharge Summary 08/08/18 0957 MR#: [id number] Acct: [id number] Name: YARELIS BURROWS Rep #: [id number] : 1955 63 From: Jacqui Byrne NP-Iram PCP: Angela Craig NP Status: DIS LUIGI Y Location: [place] [address] <Jacqui Byrne - Last Filed: 08/08/18 10:05> Discharge Date [...] Diagnoses (Choose all that apply): None applicable <oNrthkarelyissacMark Yulissa - Last Filed: 08/08/18 11:07> Discharge Date [...] a stable medical condition, recommended to use gtxn-npe-ashzxou Tylenol or Aleve for pain control as [...] are stable. This note was generated with [employer] dictation software. It may contain incorrect words, [...] Tests Past 24 Hrs Code Visit OBSV E AND M: 74484 Observation care discharge 08/08/18 1006 <Electronically signed by Jacqui Byrne ENGINEER SPECIALIST-C> Date Jacqui Byrne ENGINEER SPECIALIST-C 08/08/18 1107<Electronically signed by Mark Byers MD> Cosigner Signature (if applicable): Date Mark Byers MD CC: Angela Craig ENGINEER SPECIALIST; ENGINEER SPECIALIST-C Jacqui Byrne; angela craig; Mark Byers Signed DISCHARGE INSTRUCTION Observed: 08/08/2018 Status: F Source: [place] 9:53 AM [facility] REPOSITORY [facility] Medical Records Department [address] [place] [address] Instructions for Home/Discharge Instructions 08/08/18 0951 MR#: [id number] Acct: [id number] Name: YARELIS BURROWS Rep #: [id number] : 1955 63 From: Jacqui ECKERT PCP: [...] DAILY 08/06/18 Primary Care Physician: Angela Craig NP-Iram [Primary Care Provider] - Please follow up with your Primary Care Physician in: 1 Week Test Results: Test results from this visit will be discussed in further detail at your follow-up appointment, if applicable. Proposed Discharge Date: 08/08/18 08/08/18 0953 <Electronically signed by Jacqui ECKERT> Date Jacqui ECKERT CC: Angela Craig NP STRESS REPORT Observed: 08/08/2018 Status: F Source: [place] 9:18 AM [facility] REPOSITORY [facility] Cardiovascular Services [address] [place] [address] MR#: [id number] Acct: [id number] Name: EMERSON BURROWSYulissa Muñoz Rep #: [id number] : 1955 63 From: Sammy Uriostegui MD Primary Care: Angela Craig NP Status: ADM LUIGI Ordering Dr: Sex: F C Stress Test Report Date: 08/08/2018 Procedure: Exercise [...] 78 %. This note was generated with [employer] software. It may contain incorrect words, spelling, and punctuation that were not noted in checking the note before signing. 08/08/18917 <Electronically signed by Sammy Uriostegui MD> Date Sammy Uriostegui MD CC: Angela Craig NP; Mark Byers; Pamela Grimes MD Date Dictated: 08/08/18911 Date Transcribed: 08/08/18911 News Agent: PM Signed BASIC METABOLIC Collected: 08/08/2018 Status: F Source: [place] PROFILE ([facility]) 5:10 AM [facility] REPOSITORY TYPE CODE TESTS RESULT OUT [...] GAP 9 Performed By: #### L500.2500 #### [facility] [place], [address] CBC W/DIFF, AUTOMATED Collected: 08/08/2018 Status: F Source: [place] 5:10 AM [facility] REPOSITORY TYPE CODE TESTS RESULT OUT [...] Lymph 1.56 Performed By: #### L100.0100 #### [facility] [address] [place], [address] PROTHROMBIN TIME W/INR Collected: 08/08/2018 Status: F Source: [place] 5:10 AM [facility] REPOSITORY TYPE CODE TESTS RESULT OUT OF RANGE REFERENCE UNITS LAB L300.4150 11.7-14.9 SECONDS Normal PROTIME 13.4 LAB L300.4200 Normal INR 1.0 Performed By: #### L300.3900, L300.4310 #### [facility] [address] [place], [address] PARTIAL THROMBOPLAST Collected: 08/08/2018 Status: F Source: [place] TIME 5:10 AM [facility] REPOSITORY TYPE CODE TESTS RESULT OUT OF RANGE REFERENCE UNITS LAB L300.4310 24.1-36.2 Seconds Normal PTT 34.7 Performed By: #### L300.3900, L300.4310 #### [facility] [address] [place], [address] CBC W/DIFF, AUTOMATED Collected: 08/07/2018 Status: F Source: [place] 5:15 AM [facility] REPOSITORY TYPE CODE TESTS RESULT OUT [...] Lymph 1.46 Performed By: #### L100.0100 #### [facility] [address] [place], [place], [address] BASIC METABOLIC Collected: 08/07/2018 Status: F Source: [place] PROFILE ([facility]) 5:15 AM [facility] REPOSITORY TYPE CODE TESTS RESULT OUT [...] GAP 8 Performed By: #### L500.2500 #### [facility] [address] [place], [place], [address] LIPID PROFILE Collected: 08/07/2018 Status: F Source: [place] 5:15 AM [facility] REPOSITORY TYPE CODE TESTS RESULT OUT [...] VLDL 23 Performed By: #### L500.4100 #### [facility] [address] [place], [address] EMERGENCY DEPARTMENT Observed: 08/06/2018 Status: F Source: [place] SUMMARY 11:03 PM [facility] REPOSITORY [facility] Medical Records Department [address] [place] [address] Emergency Department Summary 08/06/18 1707 MR#: [id number] Acct: [id number] Name: YARELIS BURROWS Rep #: [id number] : 1955 63 From: Laurie Garber MD [...] 2. Hypokalemia This note was generated with [employer] dictation software. It may contain incorrect words, spelling, and punctuation that were not noted in review of the chart prior to signing ED Disposition - Plan for ED Patient: Chief Complaint: Chest Pain Referrals: Angela Craig, ENGINEER SPECIALIST-C [Primary Care Provider] - What to do if you have Problems For any increased pain, shortness of breath, bleeding, nausea or vomiting, chest pain, or any unexpected problems, contact your Primary Care Provider. Call [facility] ([phone]) or report to the closest Emergency Room. Call 911 if necessary. 08/06/18 8319 <Electronically signed by Laurie Garber MD> Date Laurie Garber MD Cosigner Signature (If Indicated): Date CC: Angela Craig NP TROPONIN-I Collected: 08/06/2018 Status: F Source: [place] 10:43 PM [facility] REPOSITORY Order Comment: 'TROP' Serial specimen #1, #2 or #3: 3 TYPE CODE TESTS RESULT OUT OF RANGE REFERENCE UNITS LAB L501.4010 <0.045 ng/mL Normal < 0.015 TROPONIN-I Result Comment: TROPONIN-I EXPECTED VALUES <0.045 Negative 0.045 - 0.590 Consistent with Cardiac Damage > OR = 0.600 Critical Value Not every elevated troponin is indicative of [place]. These values should be used with clinical judgement in examining the patient's clinical picture for diagnosis. To establish a diagnosis of [place] versus myocardial injury, there must be a demonstrated rise and/or fall in the troponin values, in addition to ischemic symptoms, EKG changes, new regional wall motion abnormality, and/or angiographical evidence. PLEASE NOTE: REFERENCE RANGES EDITED 18 Performed By: #### L501.4010 #### [address] [place], [place], [address] TROPONIN-I Collected: 08/06/2018 Status: F Source: [place] 8:06 PM [facility] REPOSITORY Order Comment: 'TROP' Serial specimen [...] every elevated troponin is indicative of [place]. These values should be used with clinical judgement in examining the patient's clinical picture for diagnosis. To establish a diagnosis of [place] versus myocardial injury, there must be a demonstrated rise and/or fall in the troponin values, in addition to ischemic symptoms, EKG changes, new regional wall motion abnormality, and/or angiographical evidence. PLEASE NOTE: REFERENCE RANGES EDITED 18 Performed By: #### L501.4010 #### [facility] [address] [place], [address] HISTORY AND PHYSICAL Observed: 08/06/2018 Status: F Source: [place] EXAM 7:23 PM [facility] REPOSITORY [facility] Medical Records Department [address] [place] [address] History and Physical 08/06/181818 MR#: [id number] Acct: [id number] Name: YARELIS BURROWS Rep #: [id number] : 1955 63 From: Pamela Grimes MD PCP: Angela Craig NP Status: ADM LUIGI Y Location: [place] [address] Problem List (1) Chest pain Status: Acute [...] of tonsillectomy Z90.89 S/P laparoscopic cholecystectomy Z90.49 01/26 Trigger finger, right middle finger M65.331 History of tonsillectomy Z98.890, Z90.89 1960 S/P appendectomy Z90.49 1977 Trigger finger M65.30 right thumb Surgical History: appendectomy 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 * no history of [place] or CAD * admit to PCU with [...] Patient elects to be full code. Total txng-ux-gewd time 16 minutes. Code Visit OBSV E AND M: 78748 Initial observation care L2 Procedures: 60007 Advncd Care Plan 30 Min 08/06/18 1923 <Electronically signed by Pamela Grimes MD> Date Pamela Grimes MD Cosigner Signature: Date (if applicable) CC: Angela Craig ENGINEER SPECIALIST; Pamela Grimes MD Signed CBC W/DIFF, AUTOMATED Collected: 08/06/2018 Status: F Source: [place] 5:15 PM [facility] REPOSITORY TYPE CODE TESTS RESULT OUT [...] Lymph 1.37 Performed By: #### L100.0100 #### [facility] [address] [place], [address] BASIC METABOLIC Collected: 08/06/2018 Status: F Source: [place] PROFILE ([facility]) 5:15 PM [facility] REPOSITORY TYPE CODE TESTS RESULT OUT [...] 5 Performed By: #### L500.2500, L501.4010 #### [facility] [address] [place], [address] TROPONIN-I Collected: 08/06/2018 Status: F Source: [place] 5:15 PM [facility] REPOSITORY TYPE CODE TESTS RESULT OUT OF RANGE REFERENCE UNITS LAB L501.4010 <0.045 ng/mL Normal < 0.015 TROPONIN-I Result Comment: TROPONIN-I EXPECTED VALUES <0.045 Negative 0.045 - 0.590 Consistent with Cardiac Damage > OR = 0.600 Critical Value Not every elevated troponin is indicative of [place]. These values should be used with clinical judgement in examining the patient's clinical picture for diagnosis. To establish a diagnosis of [place] versus myocardial injury, there must be a demonstrated rise and/or fall in the troponin values, in addition to ischemic symptoms, EKG changes, new regional wall motion abnormality, and/or angiographical evidence. PLEASE NOTE: REFERENCE RANGES EDITED 18 Performed By: #### L500.2500, L501.4010 #### [facility] [address] [place], [address] HEMOGLOBIN A1C Collected: 08/06/2018 Status: F Source: [place] 5:15 PM [facility] REPOSITORY TYPE CODE TESTS RESULT OUT OF RANGE REFERENCE UNITS LAB L501.9985 4.2-6.3 % Normal HGB A1C 5.6 Performed By: #### L501.9985 #### [facility] [address] [place], [address] CHEST 1 VIEW Observed: 08/06/2018 Status: F Source: [place] (PORTABLE) 5:04 PM [facility] REPOSITORY [facility] Imaging Services [address] [place] [address] Chest 1 View (Portable) MR#: [id number] Acct: [id number] Name: YARELIS BURROWS Rep #: [id number] : 1955 F 63 From: Maico Lehman MD PCP: Angela Craig NP Status: REG ER Study: Chest 1 View (Portable) Date of Exam: 08/06/18 Exam# [id number] Ordering Dr: Laurie Garber MD STUDY: X-RAY [...] CC: Angela Craig NP; Laurie Garber MD News Agent: Signed CHEST PA AND LATERAL Observed: 08/04/2018 Status: F Source: [place] 12:41 PM [facility] REPOSITORY [facility] Imaging Services [address] [place] [address] Chest PA and Lateral MR#: [id number] Acct: [id number] Name: YARELIS BURROWS Rep #: [id number] : 1955 F 63 From: Maico Lehman MD PCP: Angela Craig NP Status: REG CLI Study: Chest PA and Lateral Date of Exam: 08/04/18 Exam# [id number] Ordering Dr: Katarina Bourgeois ENGINEER SPECIALIST-C STUDY: X-RAY CHEST REASON FOR EXAM: Female, [...] Service support , CC: Angela Craig NP; ENGINEER SPECIALISTYandy Bourgeois News Agent: Signed D-DIMER QUANTITATIVE Collected: 08/04/2018 Status: F Source: [place] (DVT/PE) 12:29 PM [facility] REPOSITORY TYPE CODE TESTS RESULT OUT OF RANGE REFERENCE UNITS LAB L300.8000 0.27-0.49 FEU/ug/m Normal D-DIMER 0.27 QUANT Result Comment: NORMAL D-Dimer level (<0.50) indicates no DVT or PE. Performed By: #### L300.8000 #### [facility] [address] [place], [address] OT D/C SUMMARY Observed: 03/10/2018 Status: F Source: [place] 2:02 PM [facility] REPOSITORY [facility] Occupational Therapy [facility] [place] [address] Fax REHABILITATION SERVICES DISCHARGE SUMMARY MR#: [id number] Acct: [id number] Name: YARELIS BURROWS Rep #: [id number] : 1955 62 From: Marlene Sexton Referring [...] completed on date and is as follows; department mgr 54, 86; lateral R 17, L 15; [...] Resume Hobbies Goal:: Yarelis to increase R department mgr to that of L department mgr 2/3 trials 75% if the time to [...] R MF vs L MF are similar. Job Spotter is to continue to progress through use and strengthening protocol through HEP. SHe is to call with questions/concerns. - D/C Information If there are questions or concerns regarding this patient's occupational therapy, please fell free to call me at [phone]. Thank you for the referral of this patient. Sincerely, Marlene Sexton <Electronically signed by Marlene Sexton > 03/10/18 1402 CC: Angela Craig NP; Chayo Ku DO KMB Signed SURGERY VISIT REPORT Observed: 02/02/2018 Status: F Source: [place] 12:57 PM [facility] REPOSITORY [facility] [address] [place] [address]. [address] [place] [address] OFFICE VISIT Date of Service: 02/01/18 MR#: [id number] Acct: [id number] Name: YARELIS BURROWS Rep #: [id number] : 1955 Provider: Jenise Julian PA-C Age/Sex: 62/F Location: [facility] Status: Signed Intake Intake Visit Reasons: f/u paulino 01/25/2018 dp Electronics Engineer Required: No Is patient in pain?: No [...] OPERATIVE REPORT Observed: 01/25/2018 Status: F Source: [place] 3:48 PM [facility] REPOSITORY [facility] Medical Records Department [address] [place] [address] Operative Report 01/25/18 1134 MR#: [id number] Acct: [id number] Name: YARELIS BURROWS Rep #: [id number] : 1955 62 From: Chidi Mo MD PCP: Angela Craig NP Status: DEP [facility] Y Location: [facility] Problem List (1) Calculus of gallbladder with chronic cholecystitis without obstruction Status: Acute Report of Operation Date of Procedure: 01/25/18 Pre-Operative Diagnosis: k 80.10 calculus of the gallbladder with chronic cholecystitis without obstruction Post-Operative Diagnosis: Same Surgery/Procedure Performed:: 58784 laparoscopic cholecystectomy Type of Anesthesia:: General Anesthesiologist: [...] the fascia the umbilical port with a qdqtdd-at-uyxje stitch of 0 Vicryl. Skin incisions were [...] Date Chidi Mo MD CC: Angela Craig NP; Chidi Mo MD Signed DISCHARGE INSTRUCTION Observed: 01/25/2018 Status: F Source: [place] 11:33 AM [facility] REPOSITORY [facility] Medical Records Department [address] [place] [address] Instructions for Home/Discharge Instructions 01/25/18 1133 MR#: [id number] Acct: [id number] Name: STORMYYARELIS Toni Rep #: [id number] : 1955 62 From: Chidi Mo MD PCP: Angela Craig NP Status: REG [facility] Discharge Diet: Light diet - advance as [...] With: Chidi Mo MD - Please call [phone] to schedule an appointment. When: 7 days after your surgery. 01/25/18 1133 <Electronically signed by Chidi Mo MD> Date Chidi Mo MD CC: Angela Craig ENGINEER SPECIALIST GALLBLADDER Observed: 01/25/2018 Status: F Source: [place] 12:00 AM [facility] REPOSITORY Patient: YARELIS BURROWS : 1955 (62/F) Acct Num: [id number] Phys: Chidi Mo MD Unit Num: [id number] Loc: [facility] Specimen: [id number] Received: 01/25/18 - 151 Spec Type: GALLBLADDE TISSUES TISSUES: Gallbladder, NOS [...] measures up to 0.2 cm in thickness. Carbon Sequestration Plant Engineer sections from the gallbladder and the cystic duct are submitted in one cassette. / PITER:trevor 01/25/18 TC:3 CPT: 69044 HEADER OPERATION: Laparoscopic cholecystectomy PRE-OP DIAGNOSIS: Calculus of gallbladder with chronic cholecystitis without obstruction TISSUE SUBMITTED: Gallbladder MICROSCOPIC DESCRIPTION Slides are reviewed. MICROSCOPIC DIAGNOSIS Gallbladder: Chronic cholecystitis and cholelithiasis. SJ:trevor 01/26/18 Signed Osmany Velarde 01/26/18 <signature on file> Performed By: #### PGALL #### [facility] [address] [place] [address]. [place], [address] 12 LEAD ELECTROCARDIOGRAM Observed: 01/21/2018 Status: F Source: [place] 11:35 AM [facility] REPOSITORY [facility] Cardiovascular Services [address] [place] [address] 12 Lead EKG 01/20/18 0837 MR#: [id number] Acct: [id number] Name: YARELIS BURROWS Rep #: [id number] : 1955 62 From: Anthony Ojeda MD Attending Dr: Chidi Mo MD Status: PRE [facility] Ordering Dr: Chidi Mo MD Date: 01/20/18 Location: [facility] Sex: F C Admitted: Test Reason : PRE OP Blood Pressure : / mmHG Vent. Rate : 064 BPM Atrial Rate : 064 BPM P-R Int : 130 ms QRS Dur : 092 ms QT Int : 396 ms P-R-T Axes : 013 028 024 degrees QTc Int : 408 ms Normal sinus rhythm Normal ECG Confirmed by ANTHONY OJEDA MD ([id number]), book editor CAITLIN NIELSON ([id number]) on 01/21/2018 11:35:11 AM Referred By: Chidi Mo Confirmed By:ANTHONY OJEDA MD 01/21/18 1135 Date Anthony Ojeda MD CC: nAgela Craig NP; Chidi Mo MD Signed CBC-COMPLETE BLOOD CNT Collected: 01/20/2018 Status: F Source: [place] NO DIFF 8:18 AM [facility] REPOSITORY TYPE CODE TESTS RESULT OUT [...] MPV 11.2 Performed By: #### L100.0500 #### [facility] [address] [place], [address] SCREENING MAMM (CAD), Observed: 12/31/2017 Status: F Source: [place] BILAT 2:23 PM [facility] REPOSITORY [facility] Imaging Services [address] [place] [address] SCREENING MAMM (CAD), BILAT MR#: [id number] Acct: [id number] Name: YARELIS BURROWS Toni Rep #: [id number] : 1955 F 62 From: Fransisco Aaron MD PCP: Angela Craig NP Status: REG CLI Study: SCREENING MAMM (CAD), BILAT Date of Exam: 12/31/17 Exam# [id number] Ordering Dr: Angela Craig MAMMOGRAPHY - BILATERAL [...] Service support , CC: Angela Craig NP News Agent: Signed SURGERY VISIT REPORT Observed: 12/30/2017 Status: F Source: [place] 2:03 PM [facility] REPOSITORY [facility] [address] [place] [address] OFFICE VISIT Date of Service: 12/30/17 MR#: [id number] Acct: [id number] Name: YARELIS BURROWS Rep #: [id number] : 1955 Provider: Chidi Mo MD Age/Sex: 62/F Location: [facility] Status: Signed Intake Vital Signs12/30/17 Height 5 ft 4 in 12/30/17 Weight: 177 lb Intake Visit Reasons: cholelithiasis Electronics Engineer Required: No Is patient in pain?: No Allergies No Known Allergies Allergy (Verified 12/30/17 13:23) Medications coenzyme Q10 200 mg capsule 200 mg PO ONCE 10/15/17 [History Confirmed 03/22/18] atorvastatin 20 mg tablet 10 mg PO QDAY tab 12/30/17 [History Confirmed 12/30/17] cholecalciferol (vitamin D3) 10,000 unit capsule 10,000 unit PO QDAY 12/30/17 [History Confirmed 12/30/17] [facility] Medical History Esophageal reflux (Chronic) Hyperlipidemia [...] HPI: YARELIS BURROWS, is a 62 F who presents to the office today for evaluation of cholelithiasis. Patient was seen by her primary care physician and had some routine liver function tests which were elevated. She subsequently stopped her statin and a gallbladder ultrasound was obtained. This was completed at [facility] on 12/16/2017. This showed a [...] person, oriented to place, oriented to time [facility] Head: normocephalic, atraumatic Ears: external ears normal [...] NP LIVER Observed: 12/16/2017 Status: F Source: [place] 8:29 AM [facility] REPOSITORY [facility] Imaging Services [address] [place] [address] Liver MR#: [id number] Acct: [id number] Name: STORMYYARELIS Toni Rep #: [id number] : 1955 F 62 From: Armen Boogie MD PCP: Angela Craig NP Status: REG CLI Study: Liver Date of Exam: 12/16/17 Exam# [id number] Ordering Dr: Angela Craig STUDY: ABDOMINAL ULTRASOUND [...] Armen Boogie MD at 14:34 EST Tel [phone], Service support , CC: Angela Craig NP News Agent: Signed OT GENERAL EVALUATION Observed: 12/09/2017 Status: F Source: [place] 12:05 PM [facility] REPOSITORY [facility] Occupational Therapy [address] [place] [address] Fax REHABILITATION SERVICES INITIAL EVALUATION MR#: [id number] Acct: [id number] Name: YARELIS BURROWS Rep #: [id number] : 1955 62 From: Marlene Sexton Referring Dr.: Chayo Ku DO Status: REG RCR Insurance: [facility] Date: SELF PAY INSURANCE Patient's Visit Information YARELIS BURROWS is a 62 year old F, referred to Occupational Therapy by Chayo Ku DO,, with a diagnosis of R MR release. Date of Evaluation: 12/08/17 Occupational Therapist: Marlene Sexton - Subjective Subjective: Pt., ramona Santoyorainerjoana and noted trigger finger release 2 months. [...] DIP: MF 0-68, L 0-61 - Strength Job Spotter: R 39, L 52 Lateral Pinch: R 7, L 11 Tripod Pinch: R 6, L 8 Tip-to-Tip Pinch: R 6, L 4 - Edema Proximal Phalanx: MF R 7.5 cm, L 6.8 cm - Sensation Sensation Comments: WFL; deneis numbness and tingling. - Hand/Wrist Evaluation Total Score of Pain AND Functional Sections: 18 - Goals Goal:: Yarelis to increase R department mgr to that of L department mgr 2/3 trials 75% if the time to promote increased ability to complete ADL/AIDls and b hand manipulation by d/c. Goal:: Yarelis to increase R MF MCP ROM to that of equal value of L nonaffected have 2/3 trials 75% of the time by d/c. Goal:: Vatherien to have 0/10 pain consistently in R [...] by d/c. - Rehabilitation General Assessment: Yarelis greenerainervd for evaluation on this date. She has [...] to be FAXED BACK to us at [phone] for Medicare purposes. Please let me know if there are questions or concerns regarding this plan of care. Physician Signature: Date: <Electronically signed by Marlene Sexton > 12/09/17 1205 CC: Angela Craig ENGINEER SPECIALIST; Chayo Ku DO KMB Signed For Medicare only, by signing this I certify the plan of care. Physicians Signature Date ORTHOPEDIC VISIT Observed: 12/02/2017 Status: F Source: [place] REPORT 9:50 AM [facility] REPOSITORY [facility] Orthopaedics AND Sports Medicine [address] [place] [address] [address] [place] [address] OFFICE VISIT Date of Service: 12/02/17 MR#: [id number] Acct: [id number] Name: YARELIS BURROWS Rep #: [id number] : 1955 Provider: Chayo Ku DO Age/Sex: 62/F Location: [facility] [facility] Status: Signed Intake Intake Visit Reasons: Right [...] DO Cosigner Signature: Date (if applicable) CC: ORTHOPEDIC VISIT Observed: 11/16/2017 Status: F Source: GRETCHEN REPORT 9:18 AM [facility] REPOSITORY [facility] Orthopaedics AND Sports Medicine [address] [place] [id number] OFFICE VISIT Date of Service: 11/11/17 MR#: [id number] Acct: [id number] Name: YARELIS BURROWS Rep #: [id number] : 1955 Provider: Chayo Ku DO Age/Sex: 62/F Location: BMS.SMO Status: Signed Intake Intake Visit Reasons: Trigger [...] was likely lacking full extension from the computer terminal operator triggering, that now she will need [...] Laterality: right Trigger finger location: middle finger 11/16/17 0918 <Electronically signed by Chayo Ku DO> Date Chayo Ku DO Cosigner Signature: Date (if applicable) CC: ALLERGIES ALLERGIES DATE TYPE / CODE NAME / CODE REACTION SEVERITY SOURCE 10/20/2018 Drug lidocaine/F00 Itching Unknown [place] [facility] Allergy/4160 [id number]([facility] 74139(SNOMED M) Repository CT) 12/30/2017 Drug No Known Unknown Gretchen [facility] Allergy/4160 Allergies/F00 Hospital 59003(SNOMED 9624866(RXNOR Repository CT) M) ENCOUNTERS ENCOUNTERS ADMIT/DISCHARGE ACCOUNT ADMITTING ENCOUNTER LOCATION SOURCE NUMBER CLASS 10/20/2018/ [id number] Ambulatory BMSBuilding:B [place] 9 8 [facility] Repository 10/19/2018 [id number] Ambulatory Building:[facility] Repository 10/17/2018 [id number] Ambulatory BMSBuilding:B Gretchen 6 [facility] Repository 09/28/2018 [id number] Ambulatory [place] 4 [facility] ing:MTLAB Repository 09/07/2018 [id number] Ambulatory BMSBuilding:W Gret[place] 5 [facility] Repository 09/07/2018 [id number] Ambulatory [place] 1 [facility] ing:[facility]S Repository 08/08/2018 [id number] Ambulatory BMSBuilding:W [place] 6 [facility] Repository 08/06/2018/ [id number] Pamela Grimes Ambulatory [place] [address] [facility] ing:PCURoom: Repository [id number]: 1 08/06/2018 [id number] Pamela Grimes Ambulatory BMSBuilding:B [place] 2 Nai MS.[facility] Repository 08/06/2018 [id number] Pamela Grimes Ambulatory BMSBuilding:B Gret[place] 2 Nai [place].[facility] Repository 08/06/2018 [id number] Pamela Grimes Ambulatory BMSBuilding:B [place] 7 [place]ai [place].[facility] Repository 08/06/2018 [id number] Ambulatory BMSBuilding:W [place] 1 [facility] Repository 08/04/2018 [id number] Ambulatory [place] 5 [facility] ing:HPRAD Repository 02/01/2018/ [id number] Ambulatory BMSBuilding:B G[place] 8 6 [facility] Repository 01/25/2018/ [id number] Ambulatory [place] Gretchen 8 9 [facility] ing:SDC Repository 01/25/2018 [id number] Ambulatory BMSBuilding:B [place] 7 MS.CF.[facility] Repository 01/20/2018 [id number] Ambulatory BMSBuilding:W [place] 8 [facility] Repository 12/31/2017 [id number] Ambulatory [place] Gretchen 9 [facility] ing:BI Repository 12/31/2017/ [id number] Ambulatory [place] 8 1 [facility] ing:OT Repository 12/30/2017/ [id number] Ambulatory BMSBuilding:B [place] 8 7 [facility] Repository 12/16/2017 [id number] Ambulatory [place] Gretchen 7 [facility] ing:US Repository 12/02/2017/ [id number] Ambulatory BMSBuilding:B [place] 8 1 [facility] Repository 11/11/2017/ [id number] Ambulatory BMSBuilding:B [place] 8 4 [facility] Repository PAYERS PAYERS ENCOUNTER GUARANTOR PAYER SUBSCRIBER SOURCE 10/20/2018 AL Smith Primary AL [id number] Insurance:[place] PAEZOB: [facility] Number: [id number], [place] [id number] Repository [address]Mjf: 330) Date:5346-40-04PP [phone] (MD) 5956MT. GILDA CHANCE 71947GY: 10/20/2018 Secondary NOT GIVENUNK Gretchen Insurance:SELF PAY [facility] Number: Effective Repository Date:2018-10-20 10/19/2018 Yarelis Muñoz Primary Insurance:[facility] Al ModiuffmanDOB: [place] LuisauffmanDOB: Repository [id number] CORESOURCEPolicy [id number] [place] Number: [address] [place], [place] [id number] [place], [place] [address]Ufq: (330) Date:6902-41-92Nhuj 27370Fuf: Name:[facility] [phone] () (HP)Tel: [phone] CLAIMS [phone] () DEPTMT. GILDA CHANCE 43596JJ: 10/17/2018 AL Smith Primary AL Godinez [id number] Insurance:CORESOURCEPo KAUFFMANDOB: Community [place] licy Number: [id number], [place] [id number] Repository [address]Prz: 330) Date:4150-88-54EG [phone] () 2319MT. GILDA CHANCE 33423MJ: 10/17/2018 Secondary NOT GIVENUNK Gretchen Insurance:SELF PAY [facility] Number: Effective Repository Date:2018-10-17 09/28/2018 AL Smith Primary AL Godinez [id number] Insurance:CORESOURCEPo KAUFFMANDOB: Community [place] licy Number: [id number], [place] [id number] Repository 284[address]Ust: (330) Date:0558-92-27QW [phone] () 2310MT. GILDA CHANCE 39235GG: 09/28/2018 Secondary NOT GIVENUNK [place] Insurance:SELF PAY [facility] Number: Effective Repository Date:2018-09-28 09/07/2018 AL Smith Primary AL Godinez [id number] Insurance:CORESOURCEPo KAUFFMANDOB: Community [place] licy Number: [id number], [place] [id number] Repository [address]23[address]Ymk: (330) Date:3999-52-08WY [phone] () 2310MTGILDA VEE 07819XN: 09/07/2018 Secondary NOT GIVENUNK [place] Insurance:SELF PAY [facility] Number: Effective Repository Date:2018-09-07 09/07/2018 AL D Primary AL Godinez [id number] Insurance:CORESOURCEPo KAUFFMANDOB: Community [place] licy Number: [id number], [place] [id number] Repository [address]Goq: (330) Date:2549-76-55PJ [phone] (HP) 2310MT. [place], GILDA 04000KV: 09/07/2018 Secondary NOT GIVENUNK Gretchen Insurance:SELF PAY [facility] Number: Effective Repository Date:2018-08-25 08/08/2018 AL D Primary AL Gonsalesoster [id number] Insurance:CORESOURCEPo KAUFFMANDOB: Community [place] licy Number: [id number], [place] [id number] Repository 14[address]Mvd: (330) Date:0520-31-75MX [phone] (HP) 2310MT. GILDA CHANCE 36202NP: 08/08/2018 Secondary NOT GIVENUNK Gretchen Insurance:SELF PAY [facility] Number: Effective Repository Date:2018-08-08 08/06/2018 AL D Primary AL Gonsalesoster [id number] Insurance:CORESOURCEPo KAUFFMANDOB: Community [place] licy Number: [id number], [place] [id number] Repository 390[address]Xsz: 330) Date:8399-62-91CD [phone] (HP) 2310MT. GILDA CHANCE 88520RH: 08/06/2018 Secondary NOT GIVENUNK [place] Insurance:SELF PAY [facility] Number: Effective Repository Date:2018-08-06 08/06/2018 AL D Primary AL Luis GonsalesGretchen [id number] Insurance:CORESOURCEPo KAUFFMANDOB: Community [place] licy Number: [id number], [place] [id number] Repository [address]Isq: (330) Date:3822-71-42UQ [phone] (HP) 2310MT. GILDA CHANCE 29474ZH: 08/06/2018 Secondary NOT GIVENUNK Gretchen Insurance:SELF PAY Community [facility] Number: Effective Repository Date:2018-08-06 08/06/2018 AL D Primary AL D Goodells [id number] Insurance:CORESOURCEPo KAUFFMANDOB: Community [place] licy Number: [id number], [place] [id number] Repository 424[address]Gbl: (330) Date:2057-15-18FD [phone] (HP) 2310MT. GILDA CHANCE 34720DN: 08/06/2018 Secondary NOT GIVENUNK [place] Insurance:SELF PAY Community [facility] Number: Effective Repository Date:2018-08-06 08/06/2018 AL D Primary AL D Gretchen [id number] Insurance:CORESOURCEPo KAUFFMANDOB: Community [place] licy Number: [id number], [place] [id number] Repository [address]Fjk: (330) Date:8518-08-91CK [phone] (HP) 2310MT. GILDA CHANCE 92152YM: 08/06/2018 Secondary NOT GIVENUNK Gretchen Insurance:SELF PAY [facility] Number: Effective Repository Date:2018-08-06 08/06/2018 AL D Primary AL D Gretchen [id number] Insurance:CORESOURCEPo KAUFFMANDOB: Community [place] licy Number: [id number], [place] [id number] Repository 56[address]Czy: (330) Date:6443-85-28YH [phone] (HP) 2310MT. GILDA CHANCE 46745UP: 08/06/2018 Secondary NOT GIVENUNK [place] Insurance:SELF PAY Community [facility] Number: Effective Repository Date:2018-08-06 08/04/2018 AL D Primary AL Godinez [id number] Insurance:CORESOURCEPo KAUFFMANDOB: Community [place] licy Number: [id number], [place] [id number] Repository 707[address]Gxw: (330) Date:4020-81-08RW [phone] (HP) 2310MT. GILDA CHANCE 52632OG: 08/04/2018 Secondary NOT GIVENUNK [place] Insurance:SELF PAY [facility] Number: Effective Repository Date:2018-08-04 02/01/2018 AL D Primary AL Godinez [id number] Insurance:CORESOURCEPo KAUFFMANDOB: Community [place] licy Number: [id number] [place], [place] [id number] Repository 444[address]Qvm: Date:9584-36-21EN [phone]~33 2310MT. GILDA CHANCE 0-3 (HP) 85112NU: 02/01/2018 Secondary NOT GIVENUNK Gretcehn Insurance:SELF PAY [facility] Number: Effective Repository Date:2018-02-01 01/25/2018 AL D Primary AL Godinez [id number] Insurance:CORESOURCEPo KAUFFMANDOB: Community [place] licy Number: [id number] Rainier, [place] [id number] Repository 295[address]Fuv: Date:1549-68-96VN [phone]~33 2310MT. GILDA CHANCE 0-3 (HP) 80738EV: 01/25/2018 Secondary NOT GIVENUNK [place] Insurance:SELF PAY [facility] Number: Effective Repository Date:2018-01-03 01/25/2018 AL D Primary AL Godinez [id number] Insurance:CORESOURCEPo KAUFFMANDOB: Community [place] licy Number: [id number] Rainier, [place] [id number] Repository 27[address]Dgm: Date:3674-13-03KG [phone]~33 2310MT. GILDA CHANCE 0-3 (HP) 02597GT: 01/25/2018 Secondary NOT GIVENUNK [place] Insurance:SELF PAY [facility] Number: Effective Repository Date:2018-01-25 01/20/2018 AL D Primary AL Godinez [id number] Insurance:CORESOURCEPo KAUFFMANDOB: Community [place] licy Number: [id number], [place] [id number] Repository 16[address]Nxn: Date:8214-71-84VL [phone]~33 2310MT. GILDA CHANCE 0-3 (HP) 54798JI: 01/20/2018 Secondary NOT GIVENUNK [place] Insurance:SELF PAY [facility] Number: Effective Repository Date:2018-01-20 12/31/2017 Al D Primary Al Gonsalesoster [id number] Insurance:CORESOURCEPo KauffmanDOB: Community [place] licy Number: [id number], [place] [id number] Repository 222[address]Oyb: Date:9190-65-08PL [phone]~33 2310MT. GILDA CHANCE 0-3 (HP) 05589WL: 12/31/2017 Secondary NOT GIVENUNK Gretchen Insurance:SELF PAY [facility] Number: Effective Repository Date:2017-12-14 12/31/2017 Al D Primary Al Luis Goodells [id number] Insurance:CORESOURCEPo KauffmanDOB: Community [place] licy Number: [id number], [place] [id number] Repository 465[address]Icp: Date:5257-94-66QK [phone]~33 2310MT. GILDA CHANCE 0-3 (HP) 85807EN: 12/31/2017 Secondary NOT GIVENUNK [place] Insurance:SELF PAY [facility] Number: Effective Repository Date:2017-12-02 12/30/2017 Al D Primary Al Godinez [id number] Insurance:CORESOURCEPo KauffmanDOB: Community [place] licy Number: [id number], [place] [id number] Repository 212[address]Pyn: Date:4900-63-04WC [phone]~33 2310MT. [place] 0-3 (HP) 17462IW: 12/30/2017 Secondary NOT GIVENUNK Gretchen Insurance:SELF PAY [facility] Number: Effective Repository Date:2017-12-30 12/16/2017 Al D Primary Al Godinez [id number] Insurance:CORESOURCEPo KauffmanDOB: Community [place] licy Number: [id number], [place] [id number] Repository [address]Diq: Date:9405-36-89PV [phone]~33 2310MT. [place] 0-3 (HP) 317[address]MA: 12/16/2017 Secondary NOT GIVENUNK Gretchen Insurance:SELF PAY [facility] Number: Effective Repository Date:2017-12-14 12/02/2017 Al D Primary Al Smith Gretchen [id number] Insurance:CORESOURCEPo KauffmanDOB: Community [place] licy Number: [id number], [place] [id number] Repository 219[address]Ozq: Date:4757-52-48DV [phone]~33 2310MT. [place], [place] 0-3 (HP) 74[address]CU: 12/02/2017 Secondary NOT GIVENUNK [place] Insurance:SELF PAY [facility] Number: Effective Repository Date:2017-11-11 11/11/2017 Al D Primary Al Godinez [id number] Insurance:CORESOURCEPo KauffmanDOB: Community [place] licy Number: [id number], [place] [id number] Repository 437[address]Exk: Date:0585-01-95KL [phone]~33 2310MT. GILDA CHANCE 0-3 () 62339XR: 11/11/2017 Secondary NOT GIVENUNK [place] Insurance:SELF PAY [facility] Number: Effective Repository Date:2017-10-19
== END ==
PROVIDERS: Family Provider Nurse Practitioner; PCP Nurse Practitioner; Referring Provider Nurse Practitioner; Visit Provider Nurse Practitioner
DX: E78.00 Pure hypercholesterolemia, unspecified (principal)
CPT/HCPCS: 36415; 80053; 80061

== ENCOUNTER → 2019-01-02 07:00 | Outpatient (CLI) | payer OTHER, SELFPAY ==
[2018-10-20 13:31] VITALS: BMI 30.7
--- NOTE | 2019-01-02 07:04 | BI_ITS ---
MAMMOGRAPHY - BILATERAL SCREENING REASON FOR EXAM: Female, 63 years old. Routine annual screening examination. PERTINENT HISTORY: Mother with breast cancer. TECHNIQUE: Digital bilateral breast anjelica (3D mammographic acquisition) in the CC and MLO projections. 2-D mediolateral oblique (MLO) and craniocaudad (CC) views of both breasts were obtained. CAD: Full Field Digital Mammography with Computer Added Detection was performed. COMPARISON: Comparison is made with prior study dated December 31, 2017 and October 29, 2016. FINDINGS: Breast Composition: The breasts are heterogeneously dense, which may obscure small masses. There are no dominant masses or suspicious calcifications. No other significant abnormalities are identified. There has been no significant change since the prior study. BI/SCREENING MAMM (CAD), BILAT IMPRESSION: Stable bilateral screening mammogram. Yearly follow-up mammogram recommended. (A) ASSESSMENT CATEGORY: BIRADS Category 1: Negative. A letter regarding these results will be sent to the patient by the facility within 30 days. Approximately 10% of breast cancers are not detected by mammography. A normal mammogram should not delay biopsy of a clinically suspicious abnormality. [id number] Electronically Signed: Armen Boogie, at 8:50 EDT , Service support ,
== END ==
PROVIDERS: Family Provider Nurse Practitioner; PCP Nurse Practitioner; Referring Provider Nurse Practitioner; Visit Provider Nurse Practitioner
DX: Z12.31 Encounter for screening mammogram for malignant neoplasm of breast (principal); Z80.3 Family history of malignant neoplasm of breast
CPT/HCPCS: 77063; 77067

== ENCOUNTER → 2019-04-24 | Outpatient (CLI) | payer OTHER, SELFPAY ==
[2019-01-18 11:03] VITALS: BMI 30.4
--- NOTE | 2019-04-24 11:13 | RAD_ITS ---
STUDY: X-RAY - LEFT ANKLE REASON FOR EXAM: Female, 63 years old. Pain and swelling TECHNIQUE: 3 view(s) of the ankle. COMPARISON: None. FINDINGS: Normal visualized distal tibia and fibula. Normal medial and lateral malleoli. Normal tibiotalar articulation and ankle mortise. Normal visualized talus and calcaneus. The visualized subtalar, talonavicular, calcaneocuboid and tarsal articulations are normal. The soft tissue structures are unremarkable. RAD/Ankle min 3 Views IMPRESSION: Normal x-ray examination of the ankle. Electronically Signed: Anselmo Garcia, at 19:36 EDT Tel , Service support ,
== END | disposition home or self-care (01) ==
LOC: HPRAD 11:09
PROVIDERS: Family Provider Nurse Practitioner; PCP Nurse Practitioner; Referring Provider Nurse Practitioner; Visit Provider Nurse Practitioner
DX: M25.572 Pain in left ankle and joints of left foot (principal)
CPT/HCPCS: 73610

== ENCOUNTER → 2019-12-18 17:46 | Outpatient (CLI) | payer OTHER, SELFPAY ==
[2019-08-30 13:03] VITALS: BMI 30.7
--- NOTE | 2019-12-18 | CYSPIN_PTH ---
PATIENT: GARLAND BURROWS LOC: [facility] U#:[id number] AGE/SX: 70/F ROOM: RE12/18/[address]: Dr. Libby Buenrostro MD : 1955 BED: DIS: SPEC #: [id number] RECD: 12/19/19 07:59 STATUS: ZUNILDA REIsma #: [id number] FABRIZIO: 12/18/19 00:[address]: Libby Buenrostro DEPT: CYTOLOGY RECD BY: James Pozo ENTERED: 12/19/19 07:59 SP TYPE: CYSPIN FL OTHR DR: Mylene Craig, DECORATING SUPERVISOR-C Tissues: Urine Procedures: PAS Fungus (control) Pap Stain (control) Special Stain Group II Special Stain Group I Cytospin Fluid HEADER OPERATION: Not noted PRE-OP DIAGNOSIS: Hematuria TISSUE SUBMITTED: Urine for cytology DIAGNOSIS CYTOLOGY Urine for cytology (cytospin): Negative for malignant cells. Numerous organisms consistent with bacteria are noted. Special stain for fungi is negative for organisms; matched control is appropriate. SJ:trevor 12/20/19 COMMENT Clinical correlation and appropriate follow up are necessary. Case has been reviewed in consultation with Dr. Persaud who concurs with the above diagnosis. IDC:AM CYTOLOGY STUDY Slides are reviewed. CYTOLOGY GROSS Received is 4 ml of yellow cloudy fluid labeled with the patient's name and and designated per the requisition as urine. Submitted for cytology preparation. / trevor 12/19/19 TC:5 CPT: 52096, 31146
[2019-12-18 17:48] LABS: Cytology, Body Fluid / CSF SEE PATHOLOGY REPORT
== END ==
PROVIDERS: PCP Nurse Practitioner; Referring Provider Urology; Visit Provider Urology
DX: R31.9 Hematuria, unspecified (principal)
CPT/HCPCS: 88108; 88312; 88313

== ENCOUNTER → 2019-12-27 15:56 | Outpatient (CLI) | payer OTHER, SELFPAY ==
[2019-08-30 13:03] VITALS: BMI 30.7
--- NOTE | 2019-12-27 16:01 | CT_ITS ---
STUDY: CT ABDOMEN AND PELVIS WITH AND WITHOUT CONTRAST REASON FOR EXAM: Female, 64 years old. GROSS HEMATURIA-INTERMITTENT X 1 YR. Hx of prior appendectomy, hysterectomy(uterus only) and cholecystectomy. HTN-rx controlled. RADIATION DOSAGE (If Supplied By Facility): CTDIvol = ( 20.53 ) mGy, DLP = ( 2359.44 ) mGycm TECHNIQUE: Transaxial images were obtained from the dome of the diaphragm to the symphysis pubis without oral contrast. IV 100ML OPTIRAY 320 was administered. Sagittal and coronal images were reconstructed. Individualized dose optimization techniques were used for this CT. COMPARISON: CT abdomen pelvis November 26, 2015 FINDINGS: The visualized lung bases are unremarkable. The visualized portions of the heart are within normal limits. Normal liver. The gallbladder is contracted or absent. Normal spleen. Normal pancreas. Normal bilateral adrenal glands. There is a right renal lower pole 8 mm calcification. Multiple left renal lower pole calcifications are present measuring up to 1 cm. There are no obstructing renal stones or hydronephrosis. Normal visualized stomach. Normal small intestine. Normal colon. The appendix is visualized and appears normal. Normal abdominal aorta. Normal inferior vena cava. Normal retroperitoneum. Normal urinary bladder. Normal abdominal wall. Normal osseous structures. CT/CT Abd/Pelvis W/WO Contrast IMPRESSION: Bilateral nonobstructing renal lower pole stones, left greater than right. No obstructing renal stones or hydronephrosis. Electronically Signed: Bran Duncan, at 16:51 EDT Tel , Service support ,
[2019-12-27 16:16] LABS: CREATININE FINGERSTICK 0.8 mg/dL (0.55-1.02); EGFR FINGERSTICK > 60.0000 mL/min (>60)
== END ==
PROVIDERS: PCP Nurse Practitioner; Referring Provider Urology; Visit Provider Urology
DX: R31.0 Gross hematuria (principal)
CPT/HCPCS: 74178; Q9967

== ENCOUNTER → 2020-02-07 07:00 | Outpatient (CLI) | payer OTHER, SELFPAY ==
[2019-01-18 11:03] VITALS: BMI 30.4
[2019-08-30 13:03] VITALS: BMI 30.7
--- NOTE | 2020-02-07 07:03 | BI_ITS ---
MAMMOGRAPHY - BILATERAL SCREENING REASON FOR EXAM: Female, 64 years old. Routine annual screening examination. PERTINENT HISTORY: Mother with breast cancer. TECHNIQUE: Digital bilateral breast lucas (3D mammographic acquisition) in the CC and MLO projections. 2-D mediolateral oblique (MLO) and craniocaudad (CC) views of both breasts were obtained. CAD: Full Field Digital Mammography with Computer Added Detection was performed. COMPARISON: Comparison is made with prior study dated January 02, 2019 and December 31, 2017. FINDINGS: Breast Composition: The breasts are heterogeneously dense, which may obscure small masses. There are no dominant masses or suspicious calcifications. No other significant abnormalities are identified. There has been no significant change since the prior study. BI/SCREEN MAMM (CAD) W/LUCAS BILAT IMPRESSION: Stable bilateral screening mammogram. Yearly follow-up mammogram recommended. (A) ASSESSMENT CATEGORY: BIRADS Category 1: Negative. A letter regarding these results will be sent to the patient by the facility within 30 days. Approximately 10% of breast cancers are not detected by mammography. A normal mammogram should not delay biopsy of a clinically suspicious abnormality. [id number] Electronically Signed: Armen Boogie, at 8:16 EDT , Service support ,
== END ==
PROVIDERS: Family Provider Nurse Practitioner; PCP Nurse Practitioner; Referring Provider Nurse Practitioner; Visit Provider Nurse Practitioner
DX: Z12.31 Encounter for screening mammogram for malignant neoplasm of breast (principal)
CPT/HCPCS: 77063; 77067

== ENCOUNTER 2020-04-02 06:08 | Day surgery (SDC) | payer OTHER, SELFPAY ==
[2019-08-30 13:03] VITALS: BMI 30.7
[2020-04-02 06:37] VITALS: BP 110/78; PULSE 65; RESP 16; TEMP 36.7; O2SAT 98; BMI 31.1
[2020-04-02] MEDS: Lactated Ringers 1,000 ML 100 ML IV (06:52)
--- NOTE | 2020-04-02 07:27 | PCM.HP.STD ---
History of Present Illness Date of Admission: 04/02/20 Chief Complaint: left renal stones The patient is a 64 year old F with long-standing issues with left renal stones. After discussing the risks, benefits and alternatives, including the risk of COVID, she desires to proceed with intervention. Past Medical History Past Medical History (Chronic Problems): Chronic Problems (Last Reviewed 08/30/19 @ 13:05 by Anisha Mancera) Essential hypertension (Chronic) Hyperlipidemia (Chronic) Esophageal reflux (Chronic) Medical History: Medical History (Last Reviewed 04/02/20 @ 07:[address] Libby Buenrostro MD) Ectopic cardiac beats (Acute) I49.49 Abnormal echocardiogram (Acute) R93.1 Essential hypertension (Chronic) I10 Hyperlipidemia (Chronic) E78.5 Esophageal reflux (Chronic) K21.9 Calculus of gallbladder with chronic cholecystitis without obstruction K80.10 MEENU on CPAP G47.33, Z99.89 Allergies lidocaine Allergy (Verified 04/01/20 08:12) Itching Home Medications: Ambulatory Orders Medication Instructions Recorded atorvastatin 20 mg tablet 10 mg PO QDAY tab 12/30/17 Calcium Carbonate [Calcium] 600 mg PO BID 01/19/18 Amlodipine [Norvasc] 2.5 mg PO DAILY 08/06/18 cholecalciferol (vitamin D3) 25 1,000 unit PO DAILY tab 01/18/19 mcg (1,000 unit) tablet cranberry concentrate-ascorbic 1 cap PO DAILY cap 08/30/19 acid 4,200 mg-20 mg capsule denosumab 60 mg/mL subcutaneous 60 mg SC [id number] 08/30/19 syringe Ascorbic Acid [Vitamin C] 500 mg PO DAILY 03/26/20 Cephalexin [Keflex] 250 mg PO DAILY 03/26/20 D-Mannose [Mannose] 500 mg PO DAILY 03/26/20 Metoprolol Succinate [Toprol Xl] 25 mg PO QHS 03/26/20 Spironolactone 25 mg PO QHS 03/26/20 Smz/Tmp Ds [Bactrim Ds] 1 tab PO BID 04/02/20 Surgical History: Surgical History (Last Reviewed 04/02/20 @ 07:[address] Libby Buenrostro MD) History of appendectomy Z90.49 History of hysterectomy Z90.710 History of tonsillectomy Z90.89 S/P laparoscopic cholecystectomy Z90.49 4/18 Trigger finger, right middle finger M65.331 History of hysterectomy Z98.890, Z90.710 2005 History of tonsillectomy Z98.890, Z90.89 1960 S/P appendectomy Z90.49 1977 Trigger finger M65.30 right thumb Surgical History: appendectomy [employer] History: No pertinent [employer] history Smoking Status: Never smoker Tobacco Use: Non-smoker - *Family History Paternal Family History: Family History (Last Reviewed 04/02/20 @ 07:[address] Libby Buenrostro MD) Father CVA (cerebral vascular accident) Hypertension CAD (coronary artery disease) History of coronary artery bypass surgery Mother Hypertension Breast cancer High cholesterol Brother Heart disease Sister Diabetes Aunt Diabetes Brother Diabetes History Items: Heart Disease - brother and father both had CABG, Hypertension Maternal Family History: Family History (Last Reviewed 04/02/20 @ 07:[address] Libby Buenrostro MD) Father CVA (cerebral vascular accident) Hypertension CAD (coronary artery disease) History of coronary artery bypass surgery Mother Hypertension Breast cancer High cholesterol Brother Heart disease Sister Diabetes Aunt Diabetes Brother Diabetes History Items: Diabetes, Hypertension Review of Systems Constitutional: Denies: Anorexia, Fever, Night Sweats Eyes: Denies: Vision Change HEENT: Denies: Visual Changes Cardiovascular: Denies: Chest Pain, Chest Tightness Respiratory: Denies: Cough, Shortness of Breath Gastrointestinal: Denies: Abdominal Pain, Nausea, Vomiting Genitourinary: Denies: Dysuria, Hematuria, Retention Gynecological: Denies: Sexual concerns Musculoskeletal: Denies: Muscle pain Skin: Denies: Wounds Neurological: Denies: Difficulty swallowing VTE Information - Inpt Only VTE Present on Admission: Yes VTE Mechan Device Prophylaxis: SCD's VTE Pharm Prophylaxis ordered?: No Reason prophylaxis not ordered:: Treatment Not Indicated - Physical Exam Vitals/I&O's: Vital Signs Temp Pulse Resp BP Pulse Ox 98.0 F 65 16 110/78 98 04/02/20 06:37 04/02/20 06:37 04/02/20 06:37 04/02/20 06:37 04/02/20 06:37 Oxygen Delivery Method Room Air Weight: 82.3 kg Body Mass Index (BMI) 31.1 General: Alert, Oriented x3, Cooperative, No apparent distress HEENT: Atraumatic, Normocephalic Oral: Moist Mucosa Neck: Supple, Trachea Midline Lungs: Clear to auscultation, Normal air movement Cardiovascular: Regular rate, Regular Rhythm Abdomen: Soft, Non Tender, Non-Distended Extremities: No clubbing Skin: No rashes Musculoskeletal: No Muscle Wasting Neurological: Cranial nerves II-XII grossly intact Psych/Mental Status: Normal Affect, Alert and oriented to time, place, person, mood and affect Current Medications Cefazolin Sodium 2 gm/ Sodium (Chloride) 110 mls @ 150 mls/hr IV PREOP ONE Stop: 04/02/20 08:13 Lactated Ringer's () 1,000 mls @ 100 mls/hr IV .Q10H MIKE Last Admin: 04/02/20 06:52 Dose: 100 mls/hr Documented by: Assessment/Plan All Active Problems (Last Reviewed 08/30/19 @ 13:05 by Anisha Mancera) Ectopic cardiac beats (Acute) Abnormal echocardiogram (Acute) Chest pain (Acute) left renal stones, proceed with cystoscopy and left ureteral stent insertion, left extracorporeal shockwave lithotripsy Procedure Criteria Procedure Type: Elective Procedure Essential: Yes Criteria Statement: On 12/26/2019 the [place] Department of Health ([facility]) Public Order signed by [facility] Director Belen Oglesby M.D., regarding the Management of Non-Essential Surgeries and Procedures for the purpose of preserving Personal Protective Equipment (PPE) and critical hospital capacity and resources within [place] went into effect as of 12/27/2019 at 5:00PM. According to the [facility] Public Order: This action will remain in full force and effect until the State of Emergency declared by the Governor no longer exists or the Director of the [facility] rescinds or modifies this Order. This [facility] order stated all non-essential or elective surgeries and procedures that utilize PPE should be delayed unless there is undue risk to the current or future health of a patient. After reviewing the aforementioned [facility] Public Order and the patient's clinical case, I have determined that the scheduled procedure meets the criteria to go forward. Risk to Patient if Procedure Delayed: Threat of permanent dysfunction of an extremity or organ if delayed - renal failure COVID Risk Discussion: The surgeon/proceduralist and patient have discussed in detail the risk of exposure to and/or potential harm posed by the COVID-19 virus with having a surgery/procedure at this time versus the risk of delaying the surgery/procedure. It is not possible to know either the risk of delaying the surgery or procedure or chance of getting an infection with perfect accuracy, but a joint decision was made between the patient and the surgeon/proceduralist to proceed at this time with the scheduled surgery/procedure as indicated on the consent form.
[2020-04-02] MEDS: Cefazolin 2 GM in 0.9% Normal Saline 100 ML IV (07:29)
--- NOTE | 2020-04-02 07:32 | PCM.OPRPT ---
Problem List (1) Left renal stone Status: Acute Report of Operation Date of Procedure: 04/02/20 Pre-Operative Diagnosis: left renal stones Post-Operative Diagnosis: same Surgery/Procedure Performed:: cystoscopy, left ureteral stent insertion, left extracorporeal shockwave lithotripsy Type of Anesthesia:: General Specimen's removed: none Description of Procedure: The patient is a 64-year-old female with known left renal calculi and beginning to have thinning of her cortex along with urinary tract infections. Risks benefits and alternatives were discussed and she agreed to proceed with intervention. This included a discussion regarding the risk of COVID-19 with the current pandemic. She understands and agreed to proceed. The patient was taken to the operating room and placed on the operating room table. Anesthesia monitored the head, neck, airway, IV access and vital signs throughout the case. Once anesthesia was appropriately administered, the patient was placed into dorsal lithotomy position was prepped and draped in usual sterile fashion. A cystourethroscopy was performed through the urethra under direct visualization. The entire bladder mucosa was built visualized. There were a few areas with cystitis cystica present, no areas of erythema or growths present. No foreign body. Bilateral ureteral orifices were located on the area of the trigone in correct anatomic position. At this time the left ureteral orifice was intubated with 0.035 glide wire. The wire was visualized within the renal pelvis under fluoroscopic visualization, and a 6 [place]ian 24 cm double-J stent was inserted without difficulty over the wire with good curling in the renal pelvis as well as the urinary bladder. The patient's bladder was then emptied and she was placed into a supine position. Her stones were aligned with the lithotripter. 3000 shocks were applied. There appeared to be good fragmentation of the stones with significant dusting present. The patient was then awakened and taken to the recovery room in good condition. There were no complications during this procedure. Grafts/Implants Used: 6x24 JJ ureteral stent - Complications None - Admit VTE Documentation VTE Present on Admission: Yes VTE Mechan Device Prophylaxis: SCD's VTE Pharm Prophylaxis ordered?: No Reason prophylaxis not ordered:: Treatment Not Indicated
--- NOTE | 2020-04-02 07:36 | DCINST_ITS ---
Discharge Diet: No Restrictions Discharge Activity: May not drive while taking narcotic pain medications., May Shower Call your doctor if you observe: Fever of 101 or Higher, Inability to urinate, Inability to have a bowel movement, Calf discomfort, Uncontrolled pain Additional Instructions: hold the keflex while bactrim is finished, then resume keflex. Allergies/Adverse Reactions: Allergies lidocaine Allergy (Verified 04/01/20 08:12) Itching Medications to take at Discharge atorvastatin 20 mg tablet 10 mg PO QDAY tab 12/30/17 Calcium Carbonate [Calcium] 600 mg PO BID 01/19/18 Amlodipine [Norvasc] 2.5 mg PO DAILY 08/06/18 cholecalciferol (vitamin D3) 25 mcg (1,000 unit) tablet 1,000 unit PO DAILY tab 01/18/19 cranberry concentrate-ascorbic acid 4,200 mg-20 mg capsule 1 cap PO DAILY cap 08/30/19 denosumab 60 mg/mL subcutaneous syringe 60 mg SC [id number] 08/30/19 Ascorbic Acid [Vitamin C] 500 mg PO DAILY 03/26/20 Cephalexin [Keflex] 250 mg PO DAILY 03/26/20 D-Mannose [Mannose] 500 mg PO DAILY 03/26/20 Metoprolol Succinate [Toprol Xl] 25 mg PO QHS 03/26/20 Spironolactone 25 mg PO QHS 03/26/20 Oxycodone HCl/Acetaminophen [Percocet 5/325] 2 tab PO Q8H PRN PRN 7 Days #20 tab 04/02/20 Phenazopyridine HCl [Pyridium] 200 mg PO TID PRN PRN 7 Days #30 tab 04/02/20 Smz/Tmp Ds [Bactrim Ds] 1 tab PO BID 04/02/20 The following prescriptions were given: Oxycodone HCl/Acetaminophen [Percocet 5/325] 2 tab PO Q8H PRN PRN 7 Days #20 tab PRN Reason: Pain Transmission Status: Sent to [facility] Phenazopyridine HCl [Pyridium] 200 mg PO TID PRN PRN 7 Days #30 tab PRN Reason: Bladder Spasms Transmission Status: Pending to [facility] Primary Care Physician: Mylene Craig NP-C [Primary Care Provider] - Test Results: Test results from this visit will be discussed in further detail at your follow- up appointment, if applicable. Please Follow Up With: Libby Buenrostro MD When: call for appt to be seen in 3 weeks, will need KUB that day Proposed Discharge Date: 04/02/20
[2020-04-02 08:37] VITALS: BP 110/78; BP 130/67; PULSE 65; RESP 18; TEMP 35.6; O2SAT 97
[2020-04-02 08:45] VITALS: BP 110/78; BP 116/69; PULSE 59; RESP 16; O2SAT 100
[2020-04-02 09:00] VITALS: BP 110/78; BP 114/72; PULSE 54; RESP 18; O2SAT 98
[2020-04-02 09:13] VITALS: BP 110/78; BP 114/68; PULSE 54; RESP 18; TEMP 35.7; O2SAT 99
[2020-04-02 09:47] VITALS: BP 110/78; BP 130/66; PULSE 59; RESP 18; TEMP 36.1; O2SAT 98
== END 2020-04-02 10:01 | disposition home or self-care (01) ==
LOC: SDC 06:11 → AC 06:11
PROVIDERS: Anesthesiology; PCP Nurse Practitioner; Referring Provider Urology; Visit Provider Urology
PROC: (CPT 50590; principal; 2020-04-02 07:15)
DX: N20.0 Calculus of kidney (principal); Z11.59 Encounter for screening for other viral diseases; I10 Essential (primary) hypertension; E78.5 Hyperlipidemia, unspecified; K21.9 Gastro-esophageal reflux disease without esophagitis; G47.33 Obstructive sleep apnea (adult) (pediatric); Z79.899 Other long term (current) drug therapy
CPT/HCPCS: 00873; 50590; 52332; 87635; G2023; J7120; C1769; C2617; J2405; U0003

== ENCOUNTER → 2020-04-24 13:57 | Outpatient (CLI) | payer OTHER, SELFPAY ==
[2020-04-02 06:37] VITALS: BMI 31.1
--- NOTE | 2020-04-24 14:00 | RAD_ITS ---
STUDY: X-RAY - ABDOMEN/PELVIS REASON FOR EXAM: Female, 64 years old. POST OP LEFT KIDNEY STONE FOLLOW UP TECHNIQUE: Single AP view of the abdomen / pelvis. COMPARISON: Previous study of 03/21/2014 FINDINGS: The lung bases are not in the [id number] of this study. There is an abundance of fecal material throughout the colon. There is no demonstrated free abdominal air. There are numerous tiny calcifications projecting over the lower poles of both kidneys, stable on the right and decreased in number and size on the left. There is a left-sided ureteral stent appearing in adequate position. No calculi are seen along the tract of the stent. Normal soft tissue structures. Normal visualized osseous structures. RAD/Abdomen Single View IMPRESSION: Bilateral nephrolithiasis, stable on the right and decreased in size and number on the left. Left ureteral stent noted appearing in adequate position. Abundant fecal material consistent with constipation. Electronically Signed: Claus Mcmullen MD at 16:59 EDT , Service support ,
== END ==
PROVIDERS: PCP Nurse Practitioner; Referring Provider Urology; Visit Provider Urology
DX: N20.0 Calculus of kidney (principal)
CPT/HCPCS: 74018

== ENCOUNTER → 2020-05-01 15:19 | Outpatient (CLI) | payer OTHER, SELFPAY ==
[2020-04-02 06:37] VITALS: BMI 31.1
--- NOTE | 2020-05-01 15:22 | RAD_ITS ---
STUDY: X-RAY - ABDOMEN/PELVIS REASON FOR EXAM: Female, 64 years old. kidney stones TECHNIQUE: 1 view COMPARISON: Prior abdominal radiograph of April 24, 2020 FINDINGS: The left ureteral stent is unchanged in position. There is an unremarkable bowel gas pattern. There is no demonstrated free abdominal air. There is a persistent group of small stone fragments over the lower pole of the left kidney which is fairly static in appearance. Along the distal portion of the stent below the SI joint there are 4 separate calcifications. The uppermost calcification is likely a vascular calcification, the other 3 which overlap stent may not be pre-existing phleboliths and measure 2.3 and 1.6 mm. Of 1 calcification which is closest to the catheter is somewhat ill-defined but approximately 1.7 mm. Stable group of calcifications over the lower pole of the right kidney. Normal soft tissue structures. Normal visualized osseous structures. RAD/Abdomen Single View IMPRESSION: Ureteral stent remains in position unchanged from prior exam with a group of stone fragments over the lower pole of the left kidney that is not changed substantially since April 24, 2020 There are 3 calcifications alongside the distal portion of the stent which are suspicious for ureteral stones. Stable group of small calcifications over the lower pole of the right kidney. Electronically Signed: Yvonne Dennison MD at 16:10 EDT , Service support ,
== END ==
PROVIDERS: PCP Nurse Practitioner; Referring Provider Urology; Visit Provider Urology
DX: N20.0 Calculus of kidney (principal)
CPT/HCPCS: 74018

== ENCOUNTER 2020-05-28 06:06 | Day surgery (SDC) | payer OTHER, SELFPAY ==
[2020-05-28 06:45] VITALS: BP 120/64; PULSE 60; RESP 15; TEMP 36; O2SAT 98; BMI 31.4
[2020-05-28] MEDS: Lactated Ringers 1,000 ML 100 ML IV ×2 (06:55→08:15)
[2020-05-28] MEDS: Cefazolin 2 GM in 0.9% Normal Saline 100 ML IV (07:34)
--- NOTE | 2020-05-28 07:44 | HP.PCM_ITS ---
Problem List (1) Right renal stone Status: Acute History of Present Illness Date of Admission: 05/28/20 Chief Complaint: known right renal stone The patient is a 64 year old F with bilateral renal stones now presenting for definitive management of her right renal calculus. Risks, benefits and alternatives were discussed including the risks of the COVID-19 pandemic. Informed consent was obtained. Past Medical History Past Medical History (Chronic Problems): Chronic Problems (Last Reviewed 04/02/20 @ 07:[address] Libby Buenrostro MD) Essential hypertension (Chronic) Hyperlipidemia (Chronic) Esophageal reflux (Chronic) Medical History: Medical History (Last Updated 05/28/20 @ 07:[address] Libby Buenrostro MD) Ectopic cardiac beats (Acute) I49.49 Abnormal echocardiogram (Acute) R93.1 Essential hypertension (Chronic) I10 Hyperlipidemia (Chronic) E78.5 Esophageal reflux (Chronic) K21.9 S/P extracorporeal shock wave therapy Z98.890 Calculus of gallbladder with chronic cholecystitis without obstruction K80.10 MEENU on CPAP G47.33, Z99.89 Allergies lidocaine Allergy (Verified 05/28/20 06:43) Itching Home Medications: Ambulatory Orders Medication Instructions Recorded atorvastatin 20 mg tablet 10 mg PO QDAY tab 12/30/17 Calcium Carbonate [Calcium] 600 mg PO BID 01/19/18 Amlodipine [Norvasc] 2.5 mg PO DAILY 08/06/18 cholecalciferol (vitamin D3) 25 1,000 unit PO DAILY tab 01/18/19 mcg (1,000 unit) tablet cranberry concentrate-ascorbic 1 cap PO DAILY cap 08/30/19 acid 4,200 mg-20 mg capsule denosumab 60 mg/mL subcutaneous 60 mg SC [id number] 08/30/19 syringe Ascorbic Acid [Vitamin C] 500 mg PO DAILY 03/26/20 Cephalexin [Keflex] 250 mg PO DAILY 03/26/20 D-Mannose [Mannose] 500 mg PO DAILY 03/26/20 Metoprolol Succinate [Toprol Xl] 25 mg PO QHS 03/26/20 Spironolactone 25 mg PO QHS 03/26/20 Surgical History: Surgical History (Last Reviewed 05/28/20 @ 07:[address] Libby Buenrostro MD) S/P cystoscopy with ureteral stent placement Z96.0 History of appendectomy Z90.49 History of hysterectomy Z90.710 History of tonsillectomy Z90.89 S/P laparoscopic cholecystectomy Z90.49 4/18 Trigger finger, right middle finger M65.331 History of hysterectomy Z98.890, Z90.710 2004 History of tonsillectomy Z98.890, Z90.89 1960 S/P appendectomy Z90.49 1978 Trigger finger M65.30 right thumb Surgical History: appendectomy [employer] History: No pertinent [employer] history Smoking Status: Never smoker Tobacco Use: Non-smoker - *Family History Paternal Family History: Family History (Last Reviewed 05/28/20 @ 07:[address] Libby Buenrostro MD) Father CVA (cerebral vascular accident) Hypertension CAD (coronary artery disease) History of coronary artery bypass surgery Mother Hypertension Breast cancer High cholesterol Brother Heart disease Sister Diabetes Aunt Diabetes Brother Diabetes History Items: Heart Disease - brother and father both had CABG, Hypertension Maternal Family History: Family History (Last Reviewed 05/28/20 @ 07:[address] Libby Buenrostro MD) Father CVA (cerebral vascular accident) Hypertension CAD (coronary artery disease) History of coronary artery bypass surgery Mother Hypertension Breast cancer High cholesterol Brother Heart disease Sister Diabetes Aunt Diabetes Brother Diabetes History Items: Diabetes, Hypertension Review of Systems Constitutional: Denies: Anorexia, Chills, Fever Eyes: Denies: Vision Change HEENT: Denies: Sore Throat, Visual Changes Cardiovascular: Denies: Chest Pain, Chest Pressure Respiratory: Denies: Cough, Shortness of Breath Gastrointestinal: Denies: Abdominal Pain, Nausea, Vomiting Genitourinary: Denies: Dysuria, Retention, Urgency Gynecological: Denies: Vaginal discharge, Vaginal itching Musculoskeletal: Denies: Muscle pain Skin: Denies: Wounds Neurological: Denies: Seizures Endocrine: Denies: Change in Body Habitus VTE Information - Inpt Only VTE Present on Admission: Yes VTE Mechan Device Prophylaxis: SCD's VTE Pharm Prophylaxis ordered?: No Reason prophylaxis not ordered:: Treatment Not Indicated Patient Problems: Active and Suspected Problems (Last Reviewed 04/02/20 @ 07:[address] Libby Buenrostro MD) Right renal stone (Acute) - Physical Exam Vitals/I&O's: Vital Signs Temp Pulse Resp BP Pulse Ox 96.8 F L 60 15 120/64 98 05/28/20 06:45 05/28/20 06:45 05/28/20 06:45 05/28/20 06:45 05/28/20 06:45 Oxygen Delivery Method Room Air Weight: 82.9 kg Body Mass Index (BMI) 31.4 General: Alert, Oriented x3, Cooperative, No apparent distress HEENT: Atraumatic, Normocephalic Oral: Moist Mucosa Neck: Supple, Trachea Midline Lungs: Clear to auscultation, Normal air movement Cardiovascular: Regular rate, Regular Rhythm Abdomen: Soft, Non Tender, Non-Distended Extremities: No clubbing Skin: No rashes Musculoskeletal: No Muscle Wasting Neurological: Cranial nerves II-XII grossly intact, Neuro grossly intact Psych/Mental Status: Normal Affect, Alert and oriented to time, place, person, mood and affect Current Medications Lactated Ringer's () 1,000 mls @ 100 mls/hr IV .Q10H MIKE Last Admin: 05/28/20 06:55 Dose: 100 mls/hr Documented by: Sodium Chloride () 5 - 15 ml IV UD PRN PRN Reason: SALINE FLUSH Assessment/Plan All Active Problems (Last Reviewed 04/02/20 @ 07:[address] Libby Buenrostro MD) Left renal stone (Acute) Right renal stone (Acute) Ectopic cardiac beats (Acute) Abnormal echocardiogram (Acute) Chest pain (Acute) right extracorporeal shockwave lithotripsy Procedure Criteria Procedure Type: Elective COVID Risk Discussion: The surgeon/proceduralist and patient have discussed in detail the risk of exposure to and/or potential harm posed by the COVID-19 virus with having a surgery/procedure at this time versus the risk of delaying the surgery/procedure. It is not possible to know either the risk of delaying the surgery or procedure or chance of getting an infection with perfect accuracy, but a joint decision was made between the patient and the surgeon/proceduralist to proceed at this time with the scheduled surgery/procedure as indicated on the consent form.
--- NOTE | 2020-05-28 07:49 | PCM.DC.URO ---
Discharge Diet: No Restrictions Discharge Activity: Return to Normal Activity, No Restrictions, May not drive while taking narcotic pain medications., May Shower May resume sexual activity in: No Restrictions Call your doctor if you observe: Fever of 101 or Higher, Inability to urinate, Inability to have a bowel movement, Calf discomfort, Uncontrolled pain Allergies/Adverse Reactions: Allergies lidocaine Allergy (Verified 05/28/20 06:43) Itching Medications to take at Discharge atorvastatin 20 mg tablet 10 mg PO QDAY tab 12/30/17 Calcium Carbonate [Calcium] 600 mg PO BID 01/19/18 Amlodipine [Norvasc] 2.5 mg PO DAILY 08/06/18 cholecalciferol (vitamin D3) 25 mcg (1,000 unit) tablet 1,000 unit PO DAILY tab 01/18/19 cranberry concentrate-ascorbic acid 4,200 mg-20 mg capsule 1 cap PO DAILY cap 08/30/19 denosumab 60 mg/mL subcutaneous syringe 60 mg SC [id number] 08/30/19 Ascorbic Acid [Vitamin C] 500 mg PO DAILY 03/26/20 Cephalexin [Keflex] 250 mg PO DAILY 03/26/20 D-Mannose [Mannose] 500 mg PO DAILY 03/26/20 Metoprolol Succinate [Toprol Xl] 25 mg PO QHS 03/26/20 Spironolactone 25 mg PO QHS 03/26/20 Cephalexin [Keflex] 500 mg PO Q12 3 Days #6 cap 05/28/20 The following prescriptions were given: Cephalexin [Keflex] 500 mg PO Q12 3 Days #6 cap Transmission Status: Pending to [facility] Primary Care Physician: Mylene Craig NP-C [Primary Care Provider] - Test Results: Test results from this visit will be discussed in further detail at your follow-up appointment, if applicable. Please Follow Up With: Libby Buenrostro MD When: call for appt in 2-3 weeksMICHAEL prior Proposed Discharge Date: 05/28/20
--- NOTE | 2020-05-28 07:50 | PCM.OPRPT ---
Problem List (1) Right renal stone Status: Acute Report of Operation Date of Procedure: 05/28/20 Pre-Operative Diagnosis: right renal stone Post-Operative Diagnosis: same Surgery/Procedure Performed:: right extracorporeal shockwave lithotripsy Type of Anesthesia:: General Description of Procedure: The patient is a 64-year-old female with bilateral stone burden now presenting for surgical management of her right-sided renal calculus. Informed consent was obtained. This includes discussion of the risks of COVID-19. The patient was taken to the operating room placed on the operating room table. Anesthesia monitored the head, neck, airway, IV access and vital signs throughout the case. Once anesthesia was appropriately administered the patient was aligned with the lithotripter. Her stone was clearly visualized. 3000 shocks were applied to the stone without complication. The patient tolerated the procedure well. She was awakened and taken to the recovery room in good condition. There were no complications during the procedure. The left side was also visualized with several small stone fragments remaining from the 1.8 centimeter previous stone. Grafts/Implants Used: none - Complications none - Admit VTE Documentation VTE Present on Admission: Yes VTE Mechan Device Prophylaxis: SCD's VTE Pharm Prophylaxis ordered?: No Reason prophylaxis not ordered:: Treatment Not Indicated
[2020-05-28 08:31] VITALS: BP 115/72; BP 120/64; PULSE 67; RESP 16; TEMP 36.2; O2SAT 98
[2020-05-28 08:45] VITALS: BP 120/64; BP 137/80; PULSE 64; RESP 16; O2SAT 100
[2020-05-28 09:00] VITALS: BP 120/64; BP 146/84; PULSE 63; RESP 16; O2SAT 99
[2020-05-28 09:14] VITALS: BP 120/64; BP 153/80; PULSE 62; RESP 16; TEMP 36.1; O2SAT 99
[2020-05-28 10:00] VITALS: BP 114/78; BP 120/64; PULSE 56; RESP 16; TEMP 36; O2SAT 100
== END 2020-05-28 10:12 | disposition home or self-care (01) ==
LOC: SDC 06:07 → AC 06:08
PROVIDERS: Anesthesiology; PCP Nurse Practitioner; Referring Provider Urology; Visit Provider Urology
PROC: (CPT 50590; principal; 2020-05-28 07:20)
DX: N20.0 Calculus of kidney (principal); Z11.59 Encounter for screening for other viral diseases; I10 Essential (primary) hypertension; E78.5 Hyperlipidemia, unspecified; K21.9 Gastro-esophageal reflux disease without esophagitis; G47.33 Obstructive sleep apnea (adult) (pediatric); Z79.899 Other long term (current) drug therapy
CPT/HCPCS: 00873; 50590; 87635; 94799; J7120; J2405; U0003

== ENCOUNTER → 2020-06-19 11:34 | Outpatient (CLI) | payer OTHER, SELFPAY ==
[2020-05-28 06:45] VITALS: BMI 31.4
--- NOTE | 2020-06-19 11:41 | RAD_ITS ---
STUDY: X-RAY - ABDOMEN/PELVIS REASON FOR EXAM: Female, 64 years old. F/U FOR HX OF KIDNEY STONES BOTH SIDES. TECHNIQUE: Single AP view of the abdomen / pelvis. COMPARISON: Comparison is made with prior study 05/01/2020. FINDINGS: Normal visualized lung bases. There is a moderate amount of colonic fecal material. The previously seen left-sided double-J stent catheter has been removed. No persistent calcifications are seen in lower pole calyces of the left kidney. Faint calcifications are seen in the lower pole calyx of the right kidney. There are calcified phleboliths in the pelvis. Mild levoscoliosis. RAD/Abdomen Single View IMPRESSION: Status post removal of the left double-J stent catheter. Stable calcifications in both kidneys more prominent on the left side. Electronically Signed: Armen Boogie, at 12:28 EDT , Service support ,
== END ==
PROVIDERS: PCP Nurse Practitioner; Referring Provider Urology; Visit Provider Urology
DX: N20.0 Calculus of kidney (principal)
CPT/HCPCS: 74018

== ENCOUNTER → 2020-07-24 16:42 | Outpatient (CLI) | payer OTHER, SELFPAY ==
--- NOTE | 2020-07-24 16:46 | CT_ITS ---
STUDY: CT ABDOMEN AND PELVIS WITHOUT CONTRAST REASON FOR EXAM: Female, 65 years old. HEMATURIA WITH HISTORY OF KIDNEY STONES. PRIOR CHOLECYSTECTOMY,APPENDECTOMY AND UTERUS REMOVED RADIATION DOSAGE (If Supplied By Facility): CTDIvol = ( 9.81 ) mGy, DLP = ( 487.62 ) mGycm TECHNIQUE: Transaxial images were obtained from the dome of the diaphragm to the symphysis pubis without oral contrast, and without intravenous contrast. Sagittal and coronal images were reconstructed. Individualized dose optimization techniques were used for this CT. COMPARISON: 12/27/2019 FINDINGS: The visualized lung bases are unremarkable. The visualized portions of the heart are within normal limits. Normal liver. Cholecystectomy. Normal spleen. Normal pancreas. Normal bilateral adrenal glands. Bilateral nonobstructing renal stones Normal visualized stomach. Normal small intestine. Normal colon. Appendectomy. Normal abdominal aorta. Normal inferior vena cava. Normal retroperitoneum. Normal urinary bladder. Normal abdominal wall. Normal osseous structures. CT/Abdomen/Pelvis without Cont IMPRESSION: No evidence of acute intestinal pathology or acute obstructive uropathy. Electronically Signed: Nomi Álvarez MD at 21:48 EDT Tel , Service support ,
== END ==
PROVIDERS: PCP Nurse Practitioner; Referring Provider Urology; Visit Provider Urology
DX: N20.0 Calculus of kidney (principal)
CPT/HCPCS: 74176

== ENCOUNTER 2020-08-16 10:00 | Day surgery (SDC) | payer OTHER, SELFPAY ==
[2020-08-16] VITALS (7 sets, daily range): BP systolic 120–143; BP diastolic 72–86; PULSE 51–67; RESP 14–16; TEMP 35.9–36.4; O2SAT 97–100; BMI 31.1
--- NOTE | 2020-08-16 | CALC_PTH ---
PATIENT: GARLAND BURROWS LOC: [facility] – [place] U#:[id number] AGE/SX: 65/F ROOM: RE08/16/[address]: Dr. Libby Buenrostro MD : 1955 BED: DIS: 08/16/2020 SPEC #: [id number] RECD: 08/16/20 13:33 STATUS: ZUNILDA ANGELITO #: [id number] FABRIZIO: 08/16/20 00:[address]: Libby Buenrostro DEPT: SURGICAL PATHOLOGY RECD BY: James Pozo ENTERED: 08/16/20 13:33 SP TYPE: Calculi OTHR DR: Mylene Craig, EMOTIONAL SUPPORT TEACHER-C Tissues: CALCULI Procedures: Surgery Specimen Level I HEADER OPERATION: Cysto, ureteroscopy, laser lithotripsy, ureteral stent PRE-OP DIAGNOSIS: UTI, mixed incontinence, calculus kidney TISSUE SUBMITTED: Renal calculi GROSS DIAGNOSIS Fragments of stone, clinically renal calculi, submitted entirely for analysis. PITER:trevor 08/16/20 COMMENT The calculus is submitted in its entirety for chemical stone analysis. The results from this study will be reported separately. GROSS DESCRIPTION Received in fixative is one container labeled with the patient's name and designated renal calculi. The specimen consists of multiple fragments of watson-brown stone that in aggregate measure 0.3 x 0.3 x 0.1 cm. The specimen is submitted for analysis. / PITER:trevor 08/16/20 CPT:
[2020-08-16] MEDS: Lactated Ringers 1,000 ML 100 ML IV (10:29)
--- NOTE | 2020-08-16 10:55 | OP.PCM_ITS ---
Problem List (1) Left renal stone Status: Acute Report of Operation Date of Procedure: 08/16/20 Pre-Operative Diagnosis: left renal calculus Post-Operative Diagnosis: same Surgery/Procedure Performed:: cystoscopy, left ureteroscopy, left retrograde pyelogram, left holmium laser lithotripsy, stone basket extraction, left ureteral stent insertion Type of Anesthesia:: General Specimen's removed: Stone fragments Description of Procedure: The patient is a 65-year-old female with large left lower pole stone status post extracorporal shockwave lithotripsy. She also has right lower pole stones which have been through extracorporal shockwave lithotripsy as well. She now presents for ureteroscopy, laser lithotripsy and stone basket extraction of the large remaining stone burden on the left. Informed consent was obtained including a discussion of COVID-19 risks. The patient was taken to the operating room and placed on the operating room table. Anesthesia monitored the head, neck, airway, IV access and vital signs throughout the case. Once anesthesia was appropriately administered, the patient was placed into dorsal lithotomy in position. She was prepped and draped in usual sterile fashion. A cystourethroscopy was performed through the urethra with no bladder mucosal abnormalities. 2 separate 0.035 glide wires were inserted through the urethra without difficulty with curling in the renal pelvis. Under fluoroscopic visualization a ureteral reaccessed sheath was placed over one of the glide wires and the second remained as a safety wire. Flexible ureteroscopy was performed through the ureteral reaccess sheath. The stone burden was identified in the lower pole. The stone appeared to be embedded into the renal tissue. The area of the stone was lasered with a holmium laser fiber. The more lasering that was done, the more stone that fell into view. I lasered the stone burden until no further stone could be safely accessed with the laser fiber. Some small pieces were basket retrieved. A retrograde pyelogram was performed through the ureteroscope to ensure that all calyces had been evaluated appropriately. When no further stone fragments could be identified for removal, the ureteroscope was used to remove the ureteral reaccess sheath under direct visualization. There were no injuries to the ureter. Using the safety wire, a 6 Luxembourgish 24 cm double-J stent was inserted with good curling achieved in the renal pelvis as well as the urinary bladder. The patient's bladder was emptied and the case was terminated. Grafts/Implants Used: 6x24 JJ stent - Complications None - Admit VTE Documentation VTE Present on Admission: Yes VTE Mechan Device Prophylaxis: SCD's VTE Pharm Prophylaxis ordered?: No Reason prophylaxis not ordered:: Treatment Not Indicated
[2020-08-16] MEDS: Cefazolin 2 GM in 0.9% Normal Saline 100 ML IV (10:56)
--- NOTE | 2020-08-16 12:32 | DCINST_ITS ---
Discharge Diet: No Restrictions Discharge Activity: May not drive while taking narcotic pain medications., May Shower May resume sexual activity in: 1 week Call your doctor if you observe: Fever of 101 or Higher, Inability to urinate, Inability to have a bowel movement Allergies/Adverse Reactions: Allergies lidocaine Allergy (Verified 08/05/20 10:15) Itching Medications to take at Discharge atorvastatin 20 mg tablet 10 mg PO QDAY tab 12/30/17 Calcium Carbonate [Calcium] 600 mg PO BID 01/19/18 Amlodipine [Norvasc] 2.5 mg PO DAILY 08/06/18 cholecalciferol (vitamin D3) 25 mcg (1,000 unit) tablet 1,000 unit PO DAILY tab 01/18/19 denosumab 60 mg/mL subcutaneous syringe 60 mg SC [id number] 08/30/19 Ascorbic Acid [Vitamin C] 500 mg PO DAILY 03/26/20 Cephalexin [Keflex] 250 mg PO DAILY 03/26/20 D-Mannose [Mannose] 500 mg PO DAILY 03/26/20 Metoprolol Succinate [Toprol Xl] 25 mg PO QHS 03/26/20 Spironolactone 25 mg PO QHS 03/26/20 Cephalexin [Keflex] 500 mg PO Q12 3 Days #6 cap 08/16/20 Oxycodone HCl/Acetaminophen [Percocet 5/325] 1 tablet PO Q8H PRN PRN 7 Days #10 tablet 08/16/20 Phenazopyridine HCl [Pyridium] 200 mg PO TID PRN PRN 7 Days #30 tab 08/16/20 The following prescriptions were given: Cephalexin [Keflex] 500 mg PO Q12 3 Days #6 cap Transmission Status: Pending to [facility] Oxycodone HCl/Acetaminophen [Percocet 5/325] 1 tablet PO Q8H PRN PRN 7 Days #10 tablet PRN Reason: Pain Transmission Status: Sent to [facility] Phenazopyridine HCl [Pyridium] 200 mg PO TID PRN PRN 7 Days #30 tab PRN Reason: Bladder Spasms Transmission Status: Pending to [facility] Primary Care Physician: Mylene Craig METAL FURNITURE PANEL COVERER, METAL FURNITURE PANEL COVERER-C [Primary Care Provider] - Test Results: Test results from this visit will be discussed in further detail at your follow- up appointment, if applicable. Please Follow Up With: Libby Buenrostro MD When: next week for stent removal Proposed Discharge Date: 08/16/20
[2020-08-27 14:09] LABS: Source Not Provided
== END 2020-08-16 13:55 | disposition home or self-care (01) ==
LOC: SDC 10:01 → AC 10:02
PROVIDERS: Anesthesiology; PCP Nurse Practitioner; Referring Provider Urology; Visit Provider Urology
PROC: 0TJ98ZZ Inspection of Ureter, Via Natural or Artificial Opening Endoscopic (ICD-10-PCS; CPT 52352; principal; 2020-08-16 11:15)
DX: N20.0 Calculus of kidney (principal); Z20.828 Contact with and (suspected) exposure to other viral communicable diseases; E78.00 Pure hypercholesterolemia, unspecified; Z79.899 Other long term (current) drug therapy; I10 Essential (primary) hypertension; G47.33 Obstructive sleep apnea (adult) (pediatric); R42 Dizziness and giddiness; Z87.442 Personal history of urinary calculi; R25.1 Tremor, unspecified; K21.9 Gastro-esophageal reflux disease without esophagitis; M81.0 Age-related osteoporosis without current pathological fracture; N39.46 Mixed incontinence; N95.2 Postmenopausal atrophic vaginitis; K59.04 Chronic idiopathic constipation
CPT/HCPCS: 00918; 52356; 76000; 82360; 87635; 88300; C9803; J7120; C1769; C2617; J2405; U0003

== ENCOUNTER → 2020-10-29 09:24 | Outpatient (CLI) | payer OTHER, SELFPAY ==
[2020-10-14 10:26] VITALS: BMI 31.6
--- NOTE | 2020-10-29 09:38 | BD_ITS ---
STUDY: DUAL ENERGY X-RAY ABSORPTIOMETRY / DXA REASON FOR EXAM: Female, 65 years old. 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 COMPARISON: Comparison is made with prior study dated 10/21/2017. FINDINGS: Lumbar Spine (L1-L4): g/cm2 (0.804) / T-score (-3.0) / Z-score (-1.4) Findings are suggestive of osteoporosis with a high fracture risk. Left Femur Total: g/cm2 (0.943) / T-score (-0.5) / Z-score (0.7) Left Femoral Neck: g/cm2 (0.862) / T-score (-1.3) / Z-score (0.2) Right Femur Total: g/cm2 (0.934) / T-score (-0.6) / Z-score (0.7) Right Femoral Neck: g/cm2 (0.842) / T-score (-1.4) / Z-score (0.1) The T-Scores on the most recent prior examination were: Lumbar Spine (L1-L4): There has been improvement of bone density since the previous examination. Left Femur Total: which represents an improvement of 2.6%. Right Femur Total: which represents an improvement of 3.1%. BD/Dexa Bone Density Study IMPRESSION: The patient is considered osteoporotic as outlined below according to World Jeff Organization (WHO) criteria with a high fracture risk. There has been improvement of bone density since the previous examination. Reference Information: The T-score is the number of standard deviations above or below the standard which is normal for young adults at their peak bone mineral density. The World Health Organization (WHO) interprets the T-scores as follows: Above -1 Normal bone density Between -1 and -2.5 Osteopenia Equal to / or below -2.5 Osteoporosis As a practical clinical guideline, osteopenia may be graded as follows: Mild -1 through -1.5 Moderate -1.6 through -2.0 Severe -2.1 through -2.4 The Z-score is the number of standard deviations above or below age-matched controls. A Z-score of less than -1.5 would be considered abnormal. References: 1. NIH Osteoporosis and Related Bone Diseases www osteo.org 2. International Society for Clinical Densitometry www iscd.org 3. National Osteoporosis Foundation www nof.org Electronically Signed: Armen Boogie MD at 15:13 EST , Service support ,
== END ==
PROVIDERS: PCP Nurse Practitioner; Referring Provider Nurse Practitioner; Visit Provider Nurse Practitioner
DX: M81.0 Age-related osteoporosis without current pathological fracture (principal)
CPT/HCPCS: 77080

== ENCOUNTER → 2020-12-09 08:01 | Outpatient (CLI) | payer OTHER, SELFPAY ==
[2020-10-14 10:26] VITALS: BMI 31.6
[2020-12-09 10:56] LABS: ALB/GLOB Ratio 1.2 RATIO (0.9-2.4); AST(SGOT) 15 U/L (15-37); Alanine Aminotransfer ALT/SGPT 27 U/L (13-56); Albumin, Serum 3.9 g/dL (3.2-5.0); Alkaline Phosphatase 84 U/L (45-117); Anion Gap 5 (5-15); BUN 18 mg/dL (7-18); BUN/Creat Ratio 19.5 RATIO (10-20); Calcium,Total 8.6 mg/dL (8.5-10.1); Chloride 109 mmol/L (98-107); Creatinine, Serum 0.92 mg/dL (0.55-1.02); EST Glomerular Filtration Rate 65 mL/min (>60); Est Glom Filt Rate - Afr Amer 78 mL/min (>60); Globulin 3.3 g/dL (2.2-4.2); Glucose 98 mg/dL (74-106); Potassium 3.8 mmol/L (3.5-5.1); Protein, Total 7.2 g/dL (6.4-8.2); Sodium Level 142 mmol/L (136-145)
== END ==
PROVIDERS: PCP Nurse Practitioner; Referring Provider Nurse Practitioner; Visit Provider Nurse Practitioner
DX: I10 Essential (primary) hypertension (principal)
CPT/HCPCS: 36415; 80053

== ENCOUNTER → 2021-02-10 08:15 | Outpatient (CLI) | payer OTHER, SELFPAY ==
[2020-10-14 10:26] VITALS: BMI 31.6
--- NOTE | 2021-02-10 08:17 | BI_ITS ---
MAMMOGRAPHY - BILATERAL SCREENING REASON FOR EXAM: Female, 65 years old. Routine annual screening examination. PERTINENT HISTORY: Mother with breast cancer. Bilateral breast tenderness. TECHNIQUE: Digital bilateral breast lucas (3D mammographic acquisition) in the CC and MLO projections. 2-D mediolateral oblique (MLO) and craniocaudad (CC) views of both breasts were obtained. CAD: Full Field Digital Mammography with Computer Added Detection was performed. COMPARISON: Comparison is made with prior study dated 02/07/2020 and 01/02/2019. FINDINGS: Breast Composition: The breasts are heterogeneously dense, which may obscure small masses. There are no dominant masses or suspicious calcifications. Stable small benign appearing bilateral axillary lymph nodes. No other significant abnormalities are identified. There has been no significant change since the prior study. BI/SCRN MAMM (CAD)W/LUCAS BILAT IMPRESSION: Stable bilateral screening mammogram. Yearly follow-up mammogram recommended. (A) ASSESSMENT CATEGORY: BIRADS Category 2: Benign. A letter regarding these results will be sent to the patient by the facility within 30 days. Approximately 10% of breast cancers are not detected by mammography. A normal mammogram should not delay biopsy of a clinically suspicious abnormality. [id number] Electronically Signed: Armen Boogie MD at 9:40 EDT , Service support ,
== END ==
PROVIDERS: PCP Nurse Practitioner; Referring Provider Nurse Practitioner; Visit Provider Nurse Practitioner
DX: Z12.31 Encounter for screening mammogram for malignant neoplasm of breast (principal)
CPT/HCPCS: 77063; 77067

== ENCOUNTER → 2022-03-23 | Outpatient (CLI) | payer OTHER, SELFPAY ==
--- NOTE | 2022-03-23 15:00 | RAD_ITS ---
EXAM: XR ABDOMEN, 1 VIEW CLINICAL INDICATION: CALC OF KIDNEY TECHNIQUE: Frontal supine view of the abdomen/pelvis. This report was created using PerSay report generation technology. COMPARISON: 03/03/2021 FINDINGS: LOWER THORAX: No acute pathology. GASTROINTESTINAL TRACT: Unremarkable. Non-obstructive. No bowel or stomach distention. ORGANS: Unremarkable as visualized. No organomegaly. No abnormal calcifications. Calcifications again seen overlying the left kidney. BONES/JOINTS: No acute pathology. SOFT TISSUES: No acute pathology. RAD/Abdomen Single View IMPRESSION: Non-obstructive bowel gas pattern. Electronically Signed: Min Browning MD at 18:02 EDT ,
== END | disposition home or self-care (01) ==
LOC: MTRAD 14:57
PROVIDERS: PCP Nurse Practitioner Family; Referring Provider Urology; Visit Provider Urology
DX: N20.0 Calculus of kidney (principal)
CPT/HCPCS: 74018

== ENCOUNTER → 2022-05-05 | Outpatient (CLI) | payer OTHER, SELFPAY ==
--- NOTE | 2022-05-05 07:18 | BI_ITS ---
MAMMOGRAPHY - BILATERAL SCREENING REASON FOR EXAM: Female, 66 years old. Routine annual screening examination. PERTINENT HISTORY: Mother with breast cancer. TECHNIQUE: Digital bilateral breast lucas (3D mammographic acquisition) in the CC and MLO projections. 2-D mediolateral oblique (MLO) and craniocaudad (CC) views of both breasts were obtained. CAD: Full Field Digital Mammography with Computer Added Detection was performed. COMPARISON: Comparison is made with prior study dated 02/10/2021 and 02/07/2020. FINDINGS: Breast Composition: The breasts are heterogeneously dense, which may obscure small masses. There are no dominant masses or suspicious calcifications. Stable small benign appearing bilateral axillary lymph nodes. No other significant abnormalities are identified. There has been no significant change since the prior study. BI/SCRN MAMM (CAD)W/LUCAS BILAT IMPRESSION: Stable bilateral screening mammogram. Yearly follow-up mammogram recommended. (A) ASSESSMENT CATEGORY: BIRADS Category 2: Benign. A letter regarding these results will be sent to the patient by the facility within 30 days. Approximately 10% of breast cancers are not detected by mammography. A normal mammogram should not delay biopsy of a clinically suspicious abnormality. [id number] Electronically Signed: Armen Boogie MD at 8:35 EDT ,
== END | disposition home or self-care (01) ==
LOC: OPBI 07:16
PROVIDERS: PCP Nurse Practitioner Family; Referring Provider Nurse Practitioner Family; Visit Provider Nurse Practitioner Family
DX: Z12.31 Encounter for screening mammogram for malignant neoplasm of breast (principal); Z80.3 Family history of malignant neoplasm of breast
CPT/HCPCS: 77063; 77067

== ENCOUNTER → 2022-11-10 | Outpatient (CLI) | payer OTHER, SELFPAY ==
--- NOTE | 2022-11-10 13:43 | BD_ITS ---
STUDY: DUAL ENERGY X-RAY ABSORPTIOMETRY / DXA REASON FOR EXAM: Female, 67 years old. 733.00OsteoporosisBONE DENSITY REASON FOR EXAM TECHNIQUE: Bone Mineral Density (BMD) measurements of lumbar spine and bilateral hips were obtained. COMPARISON: Comparison is made with prior examination dated 10/29/2020. FINDINGS: Lumbar Spine (L1-L4): g/cm2 (0.768) / T-score (-2.5) / Z-score (-0.5) Findings are suggestive of osteopenia with a high fracture risk. Left Femur Total: g/cm2 (0.880) / T-score (-0.5) / Z-score (0.9) Left Femoral Neck: g/cm2 (0.705) / T-score (-1.3) / Z-score (0.4) Right Femur Total: g/cm2 (0.857) / T-score (-0.7) / Z-score (0.7) Right Femoral Neck: g/cm2 (0.709) / T-score (-1.3) / Z-score (0.4) The T-Scores on the most recent prior examination were: Lumbar Spine (L1-L4): There has been worsening of bone density since the previous examination. Left Femur Total: which represents an improvement of 0.1%. Right Femur Total: which represents a worsening of 1.5%. BD/Dexa Bone Density Study IMPRESSION: The patient is considered osteopenic as outlined below according to World Jeff Organization (WHO) criteria with a high fracture risk. There has been worsening of bone density since the previous examination. Reference Information: The T-score is the number of standard deviations above or below the standard which is normal for young adults at their peak bone mineral density. The World Health Organization (WHO) interprets the T-scores as follows: Above -1 Normal bone density Between -1 and -2.5 Osteopenia Equal to / or below -2.5 Osteoporosis As a practical clinical guideline, osteopenia may be graded as follows: Mild -1 through -1.5 Moderate -1.6 through -2.0 Severe -2.1 through -2.4 The Z-score is the number of standard deviations above or below age-matched controls. A Z-score of less than -1.5 would be considered abnormal. References: 1. NIH Osteoporosis and Related Bone Diseases www osteo.org 2. International Society for Clinical Densitometry www iscd.org 3. National Osteoporosis Foundation www nof.org Electronically Signed: Armen Boogie MD at 13:22 EST ,
== END | disposition home or self-care (01) ==
LOC: OPBD 13:33
PROVIDERS: PCP Nurse Practitioner Family; Visit Provider Nurse Practitioner Family
DX: Q78.2 Osteopetrosis (principal)
CPT/HCPCS: 77080

== ENCOUNTER → 2023-01-25 | Outpatient (CLI) | payer OTHER, SELFPAY ==
--- NOTE | 2023-01-25 06:53 | CT_ITS ---
STUDY: CT ABDOMEN AND PELVIS WITHOUT CONTRAST REASON FOR EXAM: Female, 67 years old. Single episode of hematuria. History of kidney stones. RADIATION DOSAGE (If Supplied By Facility): CTDIvol = ( 11.65 ) mGy, DLP = ( 561.90 ) mGycm TECHNIQUE: Transaxial images were obtained from the dome of the diaphragm to the symphysis pubis without oral contrast, and without intravenous contrast. Sagittal and coronal images were reconstructed. Individualized dose optimization techniques were used for this CT. COMPARISON: Comparison is made with prior study July 24, 2020. FINDINGS: Minimal increased linear markings at the left lung base suggestive of linear atelectasis and/or mild scarring. The visualized portions of the heart are within normal limits. Normal liver. There are surgical clips in the gallbladder fossa consistent with a prior cholecystectomy. Normal spleen. Normal pancreas. Normal bilateral adrenal glands. There is a 2 mm nonobstructive calculus in the upper pole calyx of the right kidney. There is a nonobstructive calculus in the lower pole calyx of the right kidney measuring 5.5 mm. There is a 1.5 cm cyst in the medial midportion of the right kidney. 3 mm nonobstructive calculus in the lower pole calyx of the left kidney. Linear calcification in the lower pole calyx of the left kidney. This has improved as compared to prior study. Stable focal cortical scarring in the inferior aspect of the left kidney. Normal visualized stomach. Normal small intestine. Normal colon. The patient is status post appendectomy. There is scattered atherosclerotic calcification of the abdominal aorta, without a demonstrated aneurysm. Normal inferior vena cava. Normal retroperitoneum. Normal urinary bladder. Normal abdominal wall. Normal osseous structures. CT/Abdomen/Pelvis without Cont IMPRESSION: Small bilateral nonobstructive intrarenal calculi. Electronically Signed: Armen Boogie MD at 12:44 EDT ,
== END | disposition home or self-care (01) ==
LOC: CT 06:52
PROVIDERS: PCP Nurse Practitioner Family; Visit Provider Urology
DX: N20.0 Calculus of kidney (principal)
CPT/HCPCS: 74176

== ENCOUNTER → 2023-05-07 | Outpatient (CLI) | payer OTHER, SELFPAY ==
--- NOTE | 2023-05-07 07:32 | BI_ITS ---
MAMMOGRAPHY - BILATERAL SCREENING REASON FOR EXAM: Female, 67 years old. Routine annual screening examination. PERTINENT HISTORY: Mother with breast cancer. TECHNIQUE: Digital bilateral breast lucas (3D mammographic acquisition) in the CC and MLO projections. 2-D mediolateral oblique (MLO) and craniocaudad (CC) views of both breasts were obtained. CAD: Full Field Digital Mammography with Computer Added Detection was performed. COMPARISON: Comparison is made with prior study May 05, 2022 and February 10, 2021. FINDINGS: Breast Composition: The breasts are heterogeneously dense, which may obscure small masses. There are no dominant masses or suspicious calcifications. Stable small benign-appearing bilateral axillary nodes. No other significant abnormalities are identified. There has been no significant change since the prior study. BI/SCRN MAMM (CAD)W/LUCAS BILAT IMPRESSION: Stable bilateral screening mammogram. Yearly follow-up mammogram recommended. (A) ASSESSMENT CATEGORY: BIRADS Category 2: Benign. A letter regarding these results will be sent to the patient by the facility within 30 days. Approximately 10% of breast cancers are not detected by mammography. A normal mammogram should not delay biopsy of a clinically suspicious abnormality. [id number] Electronically Signed: Armen Boogie MD at 9:08 EDT ,
== END | disposition home or self-care (01) ==
LOC: OPBI 07:32
PROVIDERS: PCP Nurse Practitioner Family; Referring Provider Nurse Practitioner Family; Visit Provider Nurse Practitioner Family
DX: Z12.31 Encounter for screening mammogram for malignant neoplasm of breast (principal)
CPT/HCPCS: 77063; 77067

== ENCOUNTER → 2023-05-28 | Outpatient (CLI) | payer OTHER, SELFPAY | END | disposition home or self-care (01) | PROVIDERS: PCP Nurse Practitioner Family; Referring Provider Nurse Practitioner Gerontology; Visit Provider Nurse Practitioner Gerontology | DX: I49.49 Other premature depolarization (principal) | CPT/HCPCS: 93225; 93226 ==

== ENCOUNTER 2023-06-09 08:00 | Outpatient (RCR) | payer OTHER, SELFPAY ==
--- NOTE | 2023-05-20 18:22 | HP.PTEVAL_ITS ---
Patient's Visit Information Visit Information Visit Information: GARLAND BURROWS is a 67 year old F referred to Physical Therapy by TOMEKA Mcarthur with a diagnosis of LUMBAR RADICULOPATHY. Date of Evaluation: 05/20/23 Physical Therapist: Pb Noel, PT, Cert MDT, OCS Visit Plan Frequency: 2x /Week Duration: 4 Weeks Plan: PT INTERVETIONS MARGUERITE EX'S ,DLS ,POSTURAL EX'S , ANDPOSTURE/BODY MECHANICS EDUCATION Subjective Subjective: This 67 y/o female presents to physical therapy with lumbar radiculopathy. Patient has lumbar pain ~ 2weeks . Patient was working bending and reaching forward felt pain in and buckled legs. Patient seen muscle relaxani and taking Advil and teylonal. Patient pain mainly has pain symmetrical lumbar pain. Aggravating factors getting up chair ,sitting ,bending ,lifting ,standing symptoms with paresthesia . Alleviating symptoms better with rest. Coughing/sneezing -. Bowel/bladder -. Symptoms described as ache. Patient symptoms can be affected. Patient had x-rays had x-rays and DDD . Patient has no trauma. Patient has no prior treatment. Symptoms affects QOL and function. Patient goals to decrease pain. Patient has osteopenia. SOCIAL: VOCATION: [employer] Pain Bilateral Back: Pain Intensity (Out of 10): 2 Pain Intensity Range: 10 Objective Objective: POSTURE: mild forward posture GAIT: reciprocal pattern NEURO: denies paresthesia/tingling ,reflexes L3-4 ,L4-5,L5 -S1 1/3 ,occasional lateral legs with standing PALAPTION: unremarkable MMT: quads/hams 4/5 ,hip flexion/abduction 4/5 ,ankle 5/5 LUMBAR ROM: flexion min loss pain ,extension min loss ,side glides min loss FLEXABLITY: hamstrings WNL Special Tests L/S Slump test left side: Negative L/S Slump test right side: Negative L/S Left Straight Leg Raise: Negative L/S Right Straight Leg Raise: Negative Lumbar Standing: Flexion - Mechanical Response: No effect Lumbar Standing: Flexion - Symptoms During Testing: Increases Lumbar Standing: Flexion - Symptoms After Testing: Worse Lumbar Standing: Extension - Mechanical Response: No effect Lumbar Standing: Extension - Symptoms During Testing: No effect Lumbar Standing: Extension - Symptoms After Testing: No effect Lumbar Standing: Right Side Glides - Mechanical Response: No effect Lumbar Standing: Right Side [place] - Symptoms During Testing: No effect Lumbar Standing: Right Side [place] - Symptoms After Testing: No effect Lumbar Standing: Left Side [place] - Mechanical Response: No effect Lumbar Standing: Left Side [place] - Symptoms During Testing: No effect Lumbar Standing: Left Side [place] - Symptoms After Testing: No effect Balance/Special Test Scores Oswestry Low Back Score: 17 Goals Goal 1:: This patient to be I with HEP Goal Time Frame: 4-6 Weeks Goal 2:: Patient to improve lumbar ROM for function of recovery to work in the garden Goal Time Frame: 4-6 Weeks Goal 3:: Patient to demonstrate 50% improvement with less pain and improve function Goal Time Frame: 4-6 Weeks Goal 4:: Patient improve back oswestry score by 5 points or to improve function and QOL Goal Time Frame: 4-6 Weeks Goal 5:: Patient be d/c to prophylaxes to diminish recurrence of symptoms Goal Time Frame: 4-6 Weeks Rehabilitation Potential Physical Therapy Diagnosis: This patient has possible disc issue lumbar with pain with bending ,sitting and better with extension and walking with symptoms increase with motion testing and positioning thus benefit from skilled PT Rehabilitation Potential: Good Anticipated Interventions Patient/Client Instruction: Educate patient on: Condition and Plan of Care For the Purpose of:: To decrease pain, To increase ROM, To improve muscle performance and motor function, To improve ability to perform ADL's, To increase tolerance to activity/condition/position, To improve ability of physical actions for home/community/work/leisure, To improve health of tissue, To decrease soft tissue restriction, To increase flexibility/ROM and To improve endurance Therapeutic Exercise to Include: Strength training, Power training, Balance training, Postural training, Flexibilty training, Dynamic Lumbar Stabilization and Marguerite Exercises For the Purpose of:: To decrease pain, To increase ROM, To improve muscle performance and motor function, To improve ability to perform ADL's, To increase tolerance to activity/condition/position, To improve ability of physical actions for home/community/work/leisure, To improve health of tissue, To decrease soft tissue restriction and To increase flexibility/ROM TENS: Yes IF ES: Yes Cryotherapy (ice pack, ice massage): Yes Thermo therapy (hot pack): Yes Ultrasound (thermal/non thermal): Yes For the Purpose of:: To decrease pain, To improve nutrient delivery to tissue, To increase oxygenation perfusion, To improve health of tissue and To decrease soft tissue restriction Text: Thank you for the opportunity to evaluate your patient. For Medicare and Medicare HMO plans, please review the plan of care and approve it. It will need to be FAXED BACK to us at [phone] for Medicare purposes. For Medicare only, by signing this I certify the plan of care. Please let me know if there are questions or concerns regarding this plan of care. Physician Signature: Date:___
--- NOTE | 2023-06-09 08:35 | HP.PTDCSUM ---
Discharge Summary D/C summary: It has been my pleasure to treat GARLAND BURROWS referred by Scarlet Dent NP-C, with the diagnosis of LUMBAR RADICULOPATHY for a total of 7 visit(s). Discharge Date: 06/09/23 Please see the following information for a summary of their discharge status. Subjective Subjective: Doing okay ,ready d/c Pain Bilateral Back: Pain Intensity (Out of 10): 0 Overall Improvement % Improvement: 80 Objective Objective/Function: Objective: POSTURE: mild forward posture GAIT: reciprocal pattern NEURO: denies paresthesia/tingling ,reflexes L3-4 ,L4-5,L5 -S1 1/3 ,occasional lateral legs with standing PALAPTION: unremarkable MMT: quads/hams 4/5 ,hip flexion/abduction 4/5 ,ankle 5/5 LUMBAR ROM: flexion WFL l ,extension WFL ,side glides min loss FLEXABLITY: hamstrings WNL Goals Goal 1:: This patient to be I with HEP Goal Progress: Goal Met Goal 2:: Patient to improve lumbar ROM for function of recovery to work in the garden Goal Progress: Goal Met Goal 3:: Patient to demonstrate 50% improvement with less pain and improve function Goal Progress: Goal Met Goal 4:: Patient improve back oswestry score by 5 points or to improve function and QOL Goal Progress: Goal Met Goal 5:: Patient be d/c to prophylaxes to diminish recurrence of symptoms Goal Progress: Goal Met Plan Plan: D/C TO HEP D/C Information Discharge Comments: HEP d/c sentence: If there are questions or concerns regarding this patient's physical therapy, please feel free to call me at [phone]. Thank you for the referral of this patient. Sincerely, Pb Noel, PT, Cert MDT, OCS Balance/Gait/Functional tests Balance/Special Test Scores Oswestry Low Back Score: 0 Improvement % Improvement: 80
== END 2023-06-09 10:03 | disposition home or self-care (01) ==
LOC: PT 08:00
PROVIDERS: PCP Nurse Practitioner Family; Referring Provider Nurse Practitioner Family; Visit Provider Nurse Practitioner Family
DX: M54.16 Radiculopathy, lumbar region (principal)
CPT/HCPCS: 97110; 97162

== ENCOUNTER → 2024-01-31 | Outpatient (CLI) | payer OTHER, SELFPAY ==
--- NOTE | 2024-01-31 07:24 | CT_ITS ---
STUDY: CT MAXILLOFACIAL SINUSES REASON FOR EXAM: Female, 68 years old. Severe headaches RADIATION DOSAGE (If Supplied By Facility): CTDIvol = ( 33.06 ) mGy, DLP = ( 759.47 ) mGycm TECHNIQUE: The patient was scanned in a multi detector CT scanner. High resolution axial imaging was performed without the administration of intravenous contrast material. Sagittal and coronal images were reconstructed. Individualized dose optimization techniques were used for this CT. COMPARISON: None. FINDINGS: FRONTAL SINUSES: Normal aeration, without mucosal inflammatory disease. ETHMOIDAL SINUSES: Normal aeration, without mucosal inflammatory disease. MAXILLARY SINUSES: Normal aeration, without mucosal inflammatory disease. SPHENOIDAL SINUSES: Normal aeration, without mucosal inflammatory disease. There is patency of the bilateral maxillary infundibuli with normal uncinate processes, ethmoid bullae, and hiatus semilunaris. Normal bilateral middle turbinates. Normal bilateral inferior turbinates. There is slight nasal deviation to the right with a small spur. There is patency of the bilateral nasal airways. The visualized osseous structures are normal. The visualized bilateral orbital contents are normal. CT/Sinus/Facial Bone IMPRESSION: No significant mucosal thickening or air-fluid levels within the paranasal sinuses Slight nasal septal deviation to the right with a small spur No fracture or suspicious osseous lesion Electronically Signed: Teja Aaron MD at 9:08 EDT ,
== END | disposition home or self-care (01) ==
LOC: CT 07:23
PROVIDERS: PCP Nurse Practitioner Family; Referring Provider Otolaryngology Otolaryngology/Facial Plastic Surgery; Visit Provider Otolaryngology Otolaryngology/Facial Plastic Surgery
DX: G44.019 Episodic cluster headache, not intractable (principal)
CPT/HCPCS: 70486

== ENCOUNTER → 2024-05-08 | Outpatient (CLI) | payer OTHER, SELFPAY ==
--- NOTE | 2024-05-08 07:14 | BI_ITS ---
MAMMOGRAPHY - BILATERAL SCREENING REASON FOR EXAM: Female, 68 years old. Routine annual screening examination. PERTINENT HISTORY: Mother with breast cancer. TECHNIQUE: Digital bilateral breast lucas (3D mammographic acquisition) in the CC and MLO projections. 2-D mediolateral oblique (MLO) and craniocaudad (CC) views of both breasts were obtained. CAD: Full Field Digital Mammography with Computer Added Detection was performed. COMPARISON: Comparison is made with prior study dated May 07, 2023 and May 05, 2022. FINDINGS: Breast Composition: The breasts are heterogeneously dense, which may obscure small masses. There are no dominant masses or suspicious calcifications. Stable small benign-appearing bilateral axillary lymph nodes. No other significant abnormalities are identified. There has been no significant change since the prior study. BI/SCRN MAMM (CAD)W/LUCAS BILAT IMPRESSION: Stable bilateral screening mammogram. Yearly follow-up mammogram recommended. (A) ASSESSMENT CATEGORY: BIRADS Category 2: Benign. A letter regarding these results will be sent to the patient by the facility within 30 days. Approximately 10% of breast cancers are not detected by mammography. A normal mammogram should not delay biopsy of a clinically suspicious abnormality. [id number] Electronically Signed: Armen Boogie MD at 8:48 EDT ,
== END | disposition home or self-care (01) ==
LOC: OPBI 07:14
PROVIDERS: PCP Nurse Practitioner Family; Referring Provider Nurse Practitioner Family; Visit Provider Nurse Practitioner Family
DX: Z12.31 Encounter for screening mammogram for malignant neoplasm of breast (principal); Z80.3 Family history of malignant neoplasm of breast
CPT/HCPCS: 77063; 77067

== ENCOUNTER → 2024-05-22 | Outpatient (CLI) | payer OTHER, SELFPAY ==
[2024-05-22 09:28] LABS: Absolute Lymphocyte Count 1.12 X10^3/uL (0.83-4.51); Absolute Neutrophil Count 3.3 X10^3/uL (2.0-7.7); Basophil# 0.04 X10^3/uL; Basophil% 0.8 % (0-1); Eosinophil# 0.07 X10^3/uL; Eosinophils% 1.4 % (0-5); Hematocrit 37.3 % (37-47); Hemoglobin 12.3 g/dL (12.0-15.0); Lymphocyte # 1.12 X10^3/ul (0.83-4.51); Lymphocyte % 22.3 % (19-41); Mean Corpuscular Hgb 30.2 pg (27.0-32.0); Mean Corpuscular Volume 91.6 fL (81-99); Mean Platelet Vol. 10.6 fl (6.2-12.0); Monocyte# 0.43 X10^3/uL; Monocyte% 8.5 % (0-10); NRBC Flagged by Analyzer 0 % (0-5); Neutrophil # 3.32 X10^3/uL (2.7-7.7); Platelet Count 190 K/mm3 (150-450); RBC Distribution Width CV 11.9 % (11.6-14.6); RBC Distribution Width SD 39.7 fl (35.1-43.9); Red Blood Count 4.07 M/mm3 (4.2-5.4)
[2024-05-22 09:58] LABS: Vitamin D,25 Hydroxy 68.3 ng/mL
[2024-05-22 10:47] LABS: Anion Gap 5 (5-15); BUN 19 mg/dL (7-18); BUN/Creat Ratio 19.8 RATIO (10-20); Chloride 108 mmol/L (98-107); Creatinine, Serum 0.96 mg/dL (0.55-1.02); EST Glomerular Filtration Rate 61 mL/min (>60); Est Glom Filt Rate - Afr Amer 74 mL/min (>60); Glucose 99 mg/dL (74-106); Magnesium 2.3 mg/dL (1.6-2.6); Sodium Level 140 mmol/L (136-145); Thyroid Stim Hormone (TSH) 1.75 uIU/mL (0.358-3.74)
== END | disposition home or self-care (01) ==
LOC: LAB 08:59
PROVIDERS: PCP Nurse Practitioner Family; Referring Provider Nurse Practitioner Gerontology; Visit Provider Nurse Practitioner Gerontology
DX: R53.83 Other fatigue (principal)
CPT/HCPCS: 36415; 80048; 82306; 83735; 84443; 85025

== ENCOUNTER → 2024-07-10 | Outpatient (CLI) | payer OTHER, SELFPAY ==
--- NOTE | 2024-07-10 14:57 | STRESSREP_ITS ---
Stress Test Report Exercise myocardial perfusion stress test. 68-year-old lady with a history of chest pain Stress protocol: Resting EKG demonstrates normal sinus rhythm with a rate of 66 bpm resting blood pressure is 118/70 mmHg. The patient exercised according to the regular Tony protocol for a total duration of 7 minutes and 30 seconds attaining a maximum heart rate of 144 bpm which was 95% of maximum predicted heart rate; the maximum workload was 10.1 metabolic equivalents. At rest there were no ST or T wave changes noted to suggest ischemia and at peak exercise upsloping ST changes only were noted which did not meet the criteria for ischemia. No clinical angina was noted the test was terminated due to the target heart rate being achieved/fati stephy. The peak blood pressure was 160/70 mmHg. Rate-pressure product was 17,000. Myocardial perfusion protocol. 11.2 mCi of technetium 99m sestamibi was injected at rest. The patient exercised according to regular Tony protocol for total duration of 7 minutes and 30 seconds and at peak exercise 36 mCi of technetium 99m sestamibi was injected stress images were obtained stress and rest images were reconstructed in comparing the short axis vertical long and horizontal long axis. Gated images were also obtained. Perfusion SPECT analysis: Review of the stress images demonstrate normal uptake of tracer noted in all areas of the myocardium. The resting images similarly demonstrate normal uptake of tracer noted in all areas of the myocardium. No areas of reversibility are noted to suggest ischemia no previous infarct was noted. Gated SPECT analysis: The gated ejection fraction is 81%. Conclusion: Normal exercise myocardial perfusion stress test at a high workload Preserved ejection fraction.
== END | disposition home or self-care (01) ==
LOC: CVS 07:02
PROVIDERS: PCP Nurse Practitioner Family; Referring Provider Nurse Practitioner Gerontology; Visit Provider Nurse Practitioner Gerontology
DX: R93.1 Abnormal findings on diagnostic imaging of heart and coronary circulation (principal); R53.83 Other fatigue; Z82.49 Family history of ischemic heart disease and other diseases of the circulatory system
CPT/HCPCS: 78452; 93017; A9500; A4216

== ENCOUNTER → 2024-11-14 | Outpatient (CLI) | payer OTHER, SELFPAY ==
--- NOTE | 2024-11-14 09:09 | BD_ITS ---
PROCEDURE: DEXA BONE DENSITY STUDY REASON FOR EXAM: F, age 69 y/o . Patient is postmenopausal.. TECHNIQUE: DEXA scan of the lumbar spine and both hips. COMPARISON: Comparison is made with prior study dated November 10, 2022. FINDINGS: Lumbar Spine (L1-L4): g/cm2 (0.802)/T-score (-2.2)/Z-score (-0.1) findings are suggestive of osteopenia with a high fracture risk. Left Femur Total: g/cm2 (0.898)/T-score (-0.4)/Z-score (1.2) Left Femoral Neck: g/cm2 (0.688)/T-score (-1.4)/Z-score (0.4) Right Femur Total: g/cm2 (0.893)/T-score (-0.4)/Z-score (1.1) Right Femoral Neck: g/cm2 (0.707)/T-score (-1.3)/Z-score (0.5) The T-Scores on the most recent prior examination were: Lumbar Spine (L1-L4): There has been improvement of bone density since the previous examination. Left Femur Total: Improvement of 2.1%. Right Femur Total: Improvement of 4.2%. BD/Dexa Bone Density Study IMPRESSION: Osteopenia. High fracture risk. Reading Location: [place] [id number]
== END | disposition home or self-care (01) ==
PROVIDERS: PCP Nurse Practitioner Family; Referring Provider Nurse Practitioner Family; Visit Provider Nurse Practitioner Family
DX: M81.0 Age-related osteoporosis without current pathological fracture (principal)
CPT/HCPCS: 77080

== ENCOUNTER → 2025-01-30 | Outpatient (CLI) | payer OTHER, SELFPAY ==
--- NOTE | 2025-01-30 10:25 | RAD_ITS ---
EXAM: XR Abdomen, 1 View CLINICAL INDICATION: KUB TECHNIQUE: Frontal supine view of the abdomen/pelvis. COMPARISON: No relevant prior studies available. FINDINGS: GASTROINTESTINAL TRACT: Fecal retention in the colon consistent with constipation. No dilation. BONES/JOINTS: Unremarkable. No acute fracture. RAD/Abdomen Single View IMPRESSION: Fecal retention in the colon consistent with constipation. Reading Location: [facility]
== END | disposition home or self-care (01) ==
LOC: MTRAD 10:24
PROVIDERS: PCP Nurse Practitioner Family; Referring Provider Urology; Visit Provider Urology
DX: N20.0 Calculus of kidney (principal)
CPT/HCPCS: 74018

== ENCOUNTER → 2025-05-14 | Outpatient (CLI) | payer OTHER, SELFPAY ==
--- NOTE | 2025-05-14 12:38 | BI_ITS ---
EXAM: SCRN MAMM (CAD)W/LUCAS BILAT DATE: 05/14/2025 CLINICAL HISTORY: F, Age 69 y/o , SCREENING TECHNIQUE: SCRN MAMM (CAD)W/LUCAS BILAT COMPARISON: Prior exam(s) dated 05/08/2024 and 05/07/2023. FINDINGS: TISSUE DENSITY: There are scattered areas of fibroglandular density. Bilateral Breast Mammographic Findings: There are lobulated nodular masslike densities seen in the superior slightly medial, retroareolar region, middle 3rd aspect of the left breast. These are partially obscured by fibroglandular tissue overlying this region. Further workup is indicated. BI/SCRN MAMM (CAD)W/LUCAS BILAT IMPRESSION: There are lobulated nodular masslike densities seen in the superior slightly me dial, retroareolar region, middle 3rd aspect of the left breast. Further workup is indicated. The patient should return for an LM view of the left breast as well as spot com pression CC and spot compression MLO view of the lobulated nodular masslike densities in the left breast. An ultrasound will al so most likely be needed. OVERALL FINAL ASSESSMENT BI-RADS 0: INCOMPLETE - NEED ADDITIONAL IMAGING EVALUATION. RECOMMENDATION: Additional Views obtained/call backs A letter with findings and recommendations will be mailed to the patient. Reading Location: [id number]
== END | disposition home or self-care (01) ==
LOC: OPBI 12:37
PROVIDERS: PCP Nurse Practitioner Family; Referring Provider Nurse Practitioner Family; Visit Provider Nurse Practitioner Family
DX: Z12.31 Encounter for screening mammogram for malignant neoplasm of breast (principal)
CPT/HCPCS: 77063; 77067

== ENCOUNTER → 2025-05-21 | Outpatient (CLI) | payer OTHER, SELFPAY ==
--- NOTE | 2025-05-21 12:54 | BI_ITS ---
EXAM: DIAG MAMM W/CAD, UNILAT 05/21/2025 CLINICAL HISTORY: F, Age 69 y/o , ABN MAMM study dated 05/14/2025 showed a nodular lobulated masslike density in the left breast. Evaluate. TECHNIQUE: DIAG MAMM W/CAD, UNILAT. COMPARISON: Prior exam(s) dated 05/14/2025, 05/08/2024, and 05/07/2023. FINDINGS: TISSUE DENSITY: There are scattered areas of fibroglandular density. Bilateral Breast Mammographic Findings: The lobulated nodular masslike densities in the slightly medial, retroareolar region, middle 3rd aspect of the left breast seen on the prior screening mammogram study dated 05/14/2025 do appear to persist on the spot compression views and LM view. There is suggestion however of some adipose tissue throughout this region on the spot compression views. Targeted ultrasound will be performed for further evaluation. BI/DIAG MAMM W/CAD, UNILAT IMPRESSION: The lobulated nodular masslike densities in the left breast will be further wor ked up with ultrasound. Please see that report. OVERALL FINAL ASSESSMENT BI-RADS 0: INCOMPLETE - NEED ADDITIONAL IMAGING EVALUATION. RECOMMENDATION: Ultrasound Recommended A letter with findings and recommendations will be mailed to the patient. Reading Location: [id number]
--- NOTE | 2025-05-21 12:54 | BI_ITS ---
EXAM: DIAG MAMM W/CAD, UNILAT 05/21/2025 CLINICAL HISTORY: F, Age 69 y/o , ABN MAMM study dated 05/14/2025 showed a nodular lobulated masslike density in the left breast. Evaluate. TECHNIQUE: DIAG MAMM W/CAD, UNILAT. COMPARISON: Prior exam(s) dated 05/14/2025, 05/08/2024, and 05/07/2023. FINDINGS: TISSUE DENSITY: There are scattered areas of fibroglandular density. Bilateral Breast Mammographic Findings: The lobulated nodular masslike densities in the slightly medial, retroareolar region, middle 3rd aspect of the left breast seen on the prior screening mammogram study dated 05/14/2025 do appear to persist on the spot compression views and LM view. There is suggestion however of some adipose tissue throughout this region on the spot compression views. Targeted ultrasound will be performed for further evaluation. BI/DIAG MAMM W/CAD, UNILAT IMPRESSION: The lobulated nodular masslike densities in the left breast will be further wor ked up with ultrasound. Please see that report. OVERALL FINAL ASSESSMENT BI-RADS 0: INCOMPLETE - NEED ADDITIONAL IMAGING EVALUATION. RECOMMENDATION: Ultrasound Recommended A letter with findings and recommendations will be mailed to the patient. Reading Location: [id number]
--- NOTE | 2025-05-21 12:54 | US_ITS ---
PROCEDURE: BREAST LIMITED UNILATERAL 05/21/2025 REASON FOR EXAM: F, Age 69 y/o , ABN MAMM COMPARISON: Mammogram studies dated 05/21/2025, 05/14/2025, and 05/07/2023. TECHNIQUE: BREAST LIMITED UNILATERAL FINDINGS: There is a ridge of fibroglandular appearing echogenic breast tissue in the left breast correlating to the nodular masslike densities seen on the most recent mammogram studies. No suspicious solid or cystic masses are seen in this location. US/Breast Limited Unilateral IMPRESSION: There is a ridge of fibroglandular appearing echogenic breast tissue in the lef t breast correlating to the nodular masslike densities seen on the most recent mammogram studies. No suspicious solid or cys tic masses are seen in this location. BI-RADS 1: NEGATIVE RECOMMENDATION: Routine annual follow-up in 1 Year Reading Location: [id number]
--- NOTE | 2025-05-21 12:54 | US_ITS ---
PROCEDURE: BREAST LIMITED UNILATERAL 05/21/2025 REASON FOR EXAM: F, Age 69 y/o , ABN MAMM COMPARISON: Mammogram studies dated 05/21/2025, 05/14/2025, and 05/07/2023. TECHNIQUE: BREAST LIMITED UNILATERAL FINDINGS: There is a ridge of fibroglandular appearing echogenic breast tissue in the left breast correlating to the nodular masslike densities seen on the most recent mammogram studies. No suspicious solid or cystic masses are seen in this location. US/Breast Limited Unilateral IMPRESSION: There is a ridge of fibroglandular appearing echogenic breast tissue in the lef t breast correlating to the nodular masslike densities seen on the most recent mammogram studies. No suspicious solid or cys tic masses are seen in this location. BI-RADS 1: NEGATIVE RECOMMENDATION: Routine annual follow-up in 1 Year Reading Location: [id number]
== END | disposition home or self-care (01) ==
LOC: OPBI 12:50
PROVIDERS: PCP Nurse Practitioner Family; Referring Provider Nurse Practitioner Family; Visit Provider Nurse Practitioner Family
DX: R92.8 Other abnormal and inconclusive findings on diagnostic imaging of breast (principal)
CPT/HCPCS: 76642; 77061; 77065; G0279

== ENCOUNTER → 2025-06-25 | Outpatient (CLI) | payer OTHER, SELFPAY ==
[2025-06-25 10:50] LABS: AST(SGOT) 19 U/L (<=31); Alanine Aminotransfer ALT/SGPT 25 U/L (<=34); Albumin, Serum 4.3 g/dL (3.4-4.8); Alkaline Phosphatase 82 U/L (35-104); Bilirubin, Direct 0.34 mg/dL (0.00-0.30); Cholesterol 124 mg/dL (<=200); Globulin 2.5 g/dL (2.2-4.2); Low Density Lipoprotein Calc. 61 mg/dL; Triglycerides 87 mg/dL; Very Low Density Lipoprotein 17 mg/dL (5-40); cholesterol:hdl ratio screen 2.71
== END | disposition home or self-care (01) ==
PROVIDERS: PCP Nurse Practitioner Family; Referring Provider Internal Medicine Cardiovascular Disease; Visit Provider Internal Medicine Cardiovascular Disease
DX: E78.5 Hyperlipidemia, unspecified (principal)
CPT/HCPCS: 36415; 80061; 80076

== ENCOUNTER → 2025-07-02 | Outpatient (CLI) | payer OTHER, SELFPAY ==
--- NOTE | 2025-07-02 07:54 | CDU_ITS ---
Reason For Study Reason For Study: Carotid Artery Calcification Rt. Velocities/BP Lt. Velocities/BP Prox CCA 97.7/19.2 cm/sec. Prox CCA 83.3/13.9 cm/sec. Mid CCA 74.4/13.0 cm/sec. Mid CCA 97.9/24.8 cm/sec. Dist CCA 78.1/16.7 cm/sec. Dist CCA 88.8/19.4 cm/sec. Prox ICA 50.4/17.3 cm/sec. Prox ICA 67.0/16.7 cm/sec. Mid ICA 54.7/14.1 cm/sec. Mid ICA 66.4/22.3 cm/sec. Dist ICA 66.7/19.5 cm/sec. Dist ICA 122.8/34.7 cm/sec. Rt. ICA/CCA = 0.9. Lt. ICA/CCA = 1.3. Prox ECA 118.0/13.9 cm/sec. Prox ECA 74.3/11.7 cm/sec. Rt. Vert. 72.4/14.7 cm/sec. Lt. Vert. 49.0/14.9 cm/sec. Right Extracranial There is intimal thickening but no significant atherosclerotic plaque noted in the right common carotid artery. There is intimal thickening but no significant atherosclerotic plaque noted in the right internal carotid artery. The tortuous nature of the right internal carotid artery may result in flow velocities overestimating the degree of stenosis. There is intimal thickening but no significant atherosclerotic plaque noted in the right external carotid artery. Antegrade flow is noted in the right vertebral artery. Left Extracranial There is intimal thickening but no significant atherosclerotic plaque noted in the left common carotid artery. There is heterogeneous, irregular atherosclerotic plaque noted in the left internal carotid artery. The tortuous nature of the left internal carotid artery may result in flow velocities overestimating the degree of stenosis. There is intimal thickening but no significant atherosclerotic plaque noted in the left external carotid artery. Antegrade flow is noted in the left vertebral artery. VL/Carotid Duplex Ultrasound Interpretation Summary Normal right extracranial internal carotid. Mild (<50%) stenosis left extracranial internal carotid. Patent and antegrade vertebrals bilaterally. Ordering Physician: Dwight Hinton Referring Physician: Scarlet Dent Performed By: Coleman Smith RVT and Student
== END | disposition home or self-care (01) ==
LOC: CVS 07:53
PROVIDERS: PCP Nurse Practitioner Family; Referring Provider Internal Medicine Cardiovascular Disease; Visit Provider Internal Medicine Cardiovascular Disease
DX: E78.5 Hyperlipidemia, unspecified (principal); I65.29 Occlusion and stenosis of unspecified carotid artery
CPT/HCPCS: 93880

== ENCOUNTER → 2025-09-28 | Outpatient (CLI) | payer MEDICARE, OTHER, SELFPAY ==
--- NOTE | 2025-09-28 06:31 | CT_ITS ---
PROCEDURE: CT ABD/PELVIS W/WO CONTRAST 09/28/2025 REASON FOR EXAM: PAINLESS GROSS HEMATURIA Prior lithotripsy. History of kidney stones. TECHNIQUE: Procedure Code: [id number] Modality: CT Procedure: CT ABD/PELVIS W/WO CONTRAST Coronal and Sagittal reconstruction series were provided. CONTRAST: Isovue-300 VOLUME: 100 mL One or more dose reduction techniques were used (e.g., Automated exposure control, adjustment of the mA and/or kV according to patient size, use of iterative reconstruction technique. RADIATION DOSE SUMMARY: CTDlvol: 21.5 mGy DLP: 3867.33 mGycm COMPARISON: Prior study dated January 25, 2023. FINDINGS: Lung bases: Minimal linear scarring at the left lung base. Liver: Minimal intrahepatic biliary ductal dilatation most likely secondary to the prior cholecystectomy. Gallbladder: Surgically absent. Spleen: Normal size. Pancreas: Diffuse fatty atrophy. Adrenals: Unremarkable Kidneys: There is a 2 mm nonobstructive calculus in the upper pole calyx of the right kidney. Punctate calculus in the lower pole calyx of the right kidney. There are 2 adjacent punctate calculi in the lower pole calyx of the left kidney. No renal mass is seen. Bladder: Unremarkable Reproductive Organs: Status post hysterectomy. Bowel: Scattered sigmoid diverticula. Appendix: Status post appendectomy. Lymph nodes: Unremarkable. Vasculature: Mild diffuse atherosclerotic calcifications are noted. Peritoneum / Retroperitoneum: Unremarkable Bones: Mild degenerative changes. CT/CT Abd/Pelvis W/WO Contrast IMPRESSION: Markings at the left lung base suggestive of atelectasis. Status post cholecystectomy. Nonobstructive bilateral intrarenal calculi. No renal mass lesion is seen. Reading Location: [id number]
== END | disposition home or self-care (01) ==
PROVIDERS: PCP Nurse Practitioner Family; Referring Provider Urology; Visit Provider Urology
DX: R31.9 Hematuria, unspecified (principal)
CPT/HCPCS: 74178; Q9967